=== PATIENT | male | born 1960 | race Caucasian/White ===

== ENCOUNTER 2022-04-20 09:09 | Observation (INO) | payer OTHER, SELFPAY ==
[2022-04-20] VITALS (36 sets, daily range): BP systolic 104–144; BP diastolic 61–83; PULSE 88–110; RESP 16–22; TEMP 36.6–37.6; O2SAT 3–97; BMI 34.1
--- NOTE | ~2022-04-20 | XR_ITS ---
Portable chest x-ray Comparison: None Clinical History: Cough, wheezing Findings: There is patchy groundglass opacity in both lungs. No pleural effusion or pneumothorax. C ardiomediastinal silhouette is stable. Bones and soft tissues are unremarkable. Impression: Patchy bilateral groundglass opacity. Correlate for infection versus possibly pulmonary edema. Reviewed, dictated and finalized at [facility]. RANCE SPECIALIST Impression: Patchy bilateral groundglass opacity. Correlate for infection versus possibly p ulmonary edema.
--- NOTE | 2022-04-20 09:17 | ECG_ITS ---
Measurements Intervals [place] Rate: 94 P: 78 TX: 168 QRS: 64 QRSD: 92 T: 55 QT: 324 QTc: 406 Interpretive Statements SINUS RHYTHM VENTRICULAR PREMATURE COMPLEX LOW QRS VOLTAGE IN LIMB LEADS BORDERLINE R WAVE PROGRESSION, ANTERIOR LEADS BASELINE ARTIFACT- I, II, III, AVR, AVL, V1-V2 BORDERLINE ECG NO PREVIOUS ECG AVAILABLE FOR COMPARISON Electronically Signed On 04-20-2022 10:05:37 FUEL HANDLER by Ziggy Alegria D.O.
[2022-04-20 09:46] LABS: Hematocrit 37.1 % (40.0-54.0); Hemoglobin 12.1 g/dL (14.0-18.0); Mean Corpuscular HGB Conc 32.6 g/dL (32.0-36.0); Mean Corpuscular Volume 95.1 fL (78.0-102.0); Mean Platelet Volume 10.2 fl (8.7-11.0); Platelet Count Result 199 K/mm3 (150-420); Red Cell Distribution Width 13.4 % (11.6-14.4); White Blood Count 5.3 K/mm3 (4.8-10.8)
[2022-04-20 10:02] LABS: D Dimer 0.43 mg/L (0.19-0.50); INR 1.1; Partial Thromboplastin Time 30.2 SEC (23.90-30.70); Prothrombin Time 11.8 Seconds (9.50-12.10)
--- NOTE | 2022-04-20 10:02 | ED.SOB ---
HPI - SOB/Dyspnea General Chief Complaint: Shortness of Breath/Dyspnea Stated Complaint: cough/short of breath/fever Time Seen by Provider: 04/20/22 09:17 History of Present Illness HPI Narrative: Pt presents with cough and SOB for several days getting progressively worse. Pt says he had fever a couple of days ago. Pt denies COPD or CAD history. Pt is former smoker but quit many years ago. Pt says has minimum sputum production but coughs so much he can't sleep and has trouble laying down flat. Related Data Home Medications Medication Instructions Recorded Confirmed amlodipine 10 mg tablet 10 mg PO DAILY 04/20/22 04/20/22 atenolol 50 mg tablet 50 mg PO BID 04/20/22 04/20/22 hydrochlorothiazide 25 mg tablet 25 mg PO DAILY 04/20/22 04/20/22 irbesartan 150 mg tablet 150 mg PO DAILY 04/20/22 04/20/22 Allergies Allergy/AdvReac Type Severity Reaction Status Date / Time azithromycin Allergy Unknown Verified 04/20/22 09:45 ezetimibe [From Vytorin] Allergy Unknown Verified 04/20/22 09:45 simvastatin [From Vytorin] Allergy Unknown Verified 04/20/22 09:45 Review of Systems Review of Systems: All systems reviewed & are unremarkable except as noted in HPI and below Exam Const: General: healthy appearing and no acute distress Nutritional Appearance: well nourished Orientation/consciousness: patient oriented x3 Limitations: no limitations Neck: Neck: normal visual inspection and no lymphadenopathy Chest: Chest palpation & inspection: normal inspection of the chest Resp: Effort & Inspection: normal respiratory effort Auscultation: crackles and wheezes Cardio: Rate: regular rate Rhythm: regular rhythm GI: GI Palp: Yes Soft to palpation Auscultation: normal bowel sounds Skin: General skin exam: normal color Rashes: no rashes Neuro: General: patient oriented x3, no meningeal signs, no focal motor deficits and CN's II-XI intact bilaterally Speech: normal speech Extrem: General: normal to inspection and no clubbing, cyanosis or edema Psych: Mental Status: mental status grossly normal Affect: normal affect Attitude: cooperative Course Course Emergency Course: pt requiring oxygen even after neb. will need to be admitted for obs and breathing treatments and IV abx. discussed with Josiah Parikh HM agrees to observation. will start antibiotics on floor. Vital Signs Vital signs: Vital Signs Temperature 98.1 F 04/20/22 09:09 Pulse Rate 106 H 04/20/22 09:09 Respiratory Rate 20 04/20/22 09:09 Blood Pressure 140/75 04/20/22 09:09 Pulse Oximetry 88 L 04/20/22 09:09 Oxygen Delivery Room Air 04/20/22 09:09 Temperature 99.7 F H 04/20/22 11:13 Pulse Rate 88 04/20/22 11:13 Respiratory Rate 20 04/20/22 11:13 Blood Pressure 131/83 04/20/22 10:16 Pulse Oximetry 88 L 04/20/22 11:13 Oxygen Delivery Nasal Cannula 04/20/22 11:13 Oxygen Flow Rate 2 04/20/22 11:13 MDM - SOB/Dyspnea Differential Diagnosis Differential diagnosis: Likely congestive heart failure, community acquired pneumonia, asthma with exacerbation and pulmonary embolism Medical Records Attestation: I reviewed the patient's medical records. Lab Data Attestation: I reviewed the patient's lab results. 04/20/22 09:35 04/20/22 09:35 Labs: Lab Results 04/20/22 04/20/22 04/20/22 Range/Units 09:35 09:35 09:35 WBC 5.3 (4.8-10.8) K/mm3 RBC 3.90 L (4.70-6.10) M/mm3 Hgb 12.1 L (14.0-18.0) g/dL Hct 37.1 L (40.0-54.0) % MCV 95.1 (78.0-102.0) fL MCH 31.0 (27.0-31.0) pg MCHC 32.6 (32.0-36.0) g/dL RDW 13.4 (11.6-14.4) % Plt Count 199 (150-420) K/mm3 MPV 10.2 (8.7-11.0) fl Immature Gran % (Auto) Not Reportable Neut % (Auto) Not Reportable Lymph % (Auto) Not Reportable Stewart % (Auto) Not Reportable Eos % (Auto) Not Reportable Baso % (Auto) Not Reportable Lymph # (Auto) Not Reportable Stewart # (Auto) Not Rep
[2022-04-20 10:04] LABS: Band Neutrophils Percent 0 % (0-6); Lymphocytes Absolute Manual 1.59 K/mm3 (1.1-4.5); Lymphocytes Percent Manual 30 % (18-44); Monocytes Absolute Manual 0.84 K/mm3 (0.1-0.90); Monocytes Percent Manual 16 % (3-9); Neutrophils Absolute Manual 2.86 K/mm3 (1.3-6.7); Neutrophils Percent Manual 54 % (46-73); Platelet Estimate Adequate (Adequate); Total Cells Counted 100
[2022-04-20 10:08] LABS: Alanine Aminotransferase 45 U/L (16-63); Alkaline Phosphatase 109 U/L (46-116); Anion Gap 11 mmol/L (8-16); Aspartate Amino Transferase 107 U/L (15-37); Bilirubin,Total 0.2 mg/dL (0.00-1.00); Blood Urea Nitrogen 18 mg/dL (7-18); Calcium 8.4 mg/dL (8.5-10.1); Carbon Dioxide 27 mmol/L (21-32); Chloride 102 mmol/L (98-108); Estimated Glomerular Filt Rate > 60; Glucose 119 mg/dL (70-99); Magnesium 1.2 mg/dL (1.8-2.4); NT Pro B Type Natriuretic Pept 36 pg/mL (0-125); Osmolality Calculated 292 mOsm/kg (285-295); Sodium 140 mmol/L (136-145); Total Protein 7.5 g/dL (6.4-8.2); Troponin I 9.5 ng/L (0.00-60.4)
[2022-04-20] MEDS: IPRATROPIUM 0.5 MG/ALBUTEROL SULFATE 2.5 MG AMPUL.NEB 3 ML INHALATION (10:08)
[2022-04-20 10:21] LABS: Influenza A QL RT-PCR Negative (Negative); Influenza B QL RT-PCR Negative (Negative); SARS-CoV-2 RNA PCR Negative (Negative)
[2022-04-20 10:22] LABS: RSV RNA, RT-PCR Negative (Negative)
--- NOTE | 2022-04-20 10:43 | PC.NURSE ---
PT REPORTS HEADACHE, ERP NOTIFIED AT THIS TIME. ERP AT BEDSIDE.
--- NOTE | 2022-04-20 11:55 | IDPHARM ---
Subjective Pharmacy was consulted by Velia Parikh regarding infectious diseases for Jose Davidson. Jose Davidson is a 61 year old M with concerns regarding Community-Acquired Pneumonia empiric therapy in light of patient allergies. Background The patient is currently receiving Cefepime D1. The patient's PMH includes quitting smoking ~6 years ago per provider and excludes pulmonary history with things like COPD. Additionally, patient appears afebrile without leukocytosis at this time. 04/20 BCX obtained - still pending. Patient has unknown azithromycin allergy. Assessment/Recommendation/Discussion Spoke with consulting provider. Patient has no pseudomonal risk factors but has azithromycin allergy and provider was looking for appropriate CAP regimen. Spoke with provider and if wanting to use beta-lactam can add a tetracycline like doxycycline for atypical coverage. No pseudomonal coverage needed then consider ceftriaxone. Ceftriaxone 2g q24h and doxycycline po 100 mg q12h. Should there be no unexpected changes, worsening, or new indication consider de-escalation as the patient stabilizes with therapy for 5-7 days. Oral de-escalation options include amoxicillin-clavulanate 875 mg q12h from the ceftriaxone. Thank you for the interesting consult - will sign off from this time as empiric therapy is established. Please consider re-consulting or reaching out should the clinical picture shift. Magdaleno Currie, PharmD Infectious Disease/Antimicrobial Stewardship Pharmacist 04/20/22; [id number]
[2022-04-20] MEDS: ACETAMINOPHEN 325 MG TABLET 650 MG PO (12:03)
[2022-04-20] MEDS: BENZONATATE 100 MG CAPSULE PO (12:05)
[2022-04-20] MEDS: guaiFENesin/DEXTROMETHORPHAN 5 ML UDC 10 ML PO (12:05)
[2022-04-20] MEDS: methylPREDNISolone SOD SUCC 40 MG VIAL IV PUSH (12:15)
[2022-04-20] MEDS: DOXYCYCLINE HYCLATE 100 MG TABLET PO ×2 (12:30→21:06)
[2022-04-20] MEDS: ALBUTEROL SULFATE NEB 1.25 MG/3 ML INH INHALATION ×3 (12:37→23:25)
[2022-04-20] MEDS: traZODone HCL 25 MG TABLET PO (21:06)
[2022-04-20] MEDS: atenoloL 50 MG TABLET PO (21:07)
--- NOTE | 2022-04-20 21:43 | PC.NURSE ---
2044 Velia Parikh PRODUCT MGR notified that patient is requesting medication for sleep. States he takes something nightly. New order received.
[2022-04-21] VITALS (8 sets, daily range): BP systolic 146; BP diastolic 76; PULSE 83–97; RESP 16–20; TEMP 36.2; O2SAT 90–95
[2022-04-21] MEDS: ALBUTEROL SULFATE NEB 1.25 MG/3 ML INH INHALATION ×2 (05:03→11:29)
[2022-04-21 07:58] LABS: Hematocrit 37.9 % (40.0-54.0); Hemoglobin 12.7 g/dL (14.0-18.0); Mean Corpuscular HGB Conc 33.5 g/dL (32.0-36.0); Mean Corpuscular Hemoglobin 31.4 pg (27.0-31.0); Mean Corpuscular Volume 93.8 fL (78.0-102.0); Mean Platelet Volume 10.2 fl (8.7-11.0); Platelet Count Result 204 K/mm3 (150-420); Red Blood Count 4.04 M/mm3 (4.70-6.10); White Blood Count 5.1 K/mm3 (4.8-10.8)
[2022-04-21 08:18] LABS: Anion Gap 9 mmol/L (8-16); Calcium 8.9 mg/dL (8.5-10.1); Carbon Dioxide 30 mmol/L (21-32); Chloride 99 mmol/L (98-108); Estimated CRCL calculation 78 ml/min; Estimated Glomerular Filt Rate > 60; Glucose 127 mg/dL (70-99); Potassium 3.7 mmol/L (3.5-5.1); Sodium 138 mmol/L (136-145)
[2022-04-21] MEDS: methylPREDNISolone SOD SUCC 40 MG VIAL IV PUSH (09:01)
[2022-04-21] MEDS: hydroCHLOROthiazide 25 MG TABLET PO (09:02)
[2022-04-21] MEDS: IRBESARTAN 150 MG TABLET PO (09:02)
[2022-04-21] MEDS: amLODIPine BESYLATE 5 MG TABLET 10 MG PO (09:02)
[2022-04-21] MEDS: DOXYCYCLINE HYCLATE 100 MG TABLET PO (09:02)
[2022-04-21] MEDS: atenoloL 50 MG TABLET PO (09:02)
[2022-04-21] MEDS: ENOXAPARIN 40 MG/0.4 ML SYRINGE SUB-Q (09:16)
[2022-04-21 09:28] LABS: Blood Urea Nitrogen 18 mg/dL (7-18); Osmolality Calculated 289 mOsm/kg (285-295)
[2022-04-21] MEDS: MAGNESIUM SULF 4 GM/WATER100ML 4 GM/100 ML BAG IVPB (09:52)
[2022-04-21 12:42] LABS: Magnesium 2.4 mg/dL (1.8-2.4)
--- NOTE | 2022-04-21 13:17 | PM.SD2 ---
Same Day Admit/Disch: HPI History of Present Illness Chief complaint: HYPOXIA PNEUMONIA Narrative: Jose Davidson is a 61 [place] [address] Emergency Room Visit Note Signed Patient: Jose Davidson MR#: [id number] : 1960 Acct:[id number] Age/Sex: 61 / M ADM Date: 04/20/22 Loc: [facility] Attending Dr: Renard Tang MD cc: Pa Tang MD; Kel Hope MD~ HPI - SOB/Dyspnea General Chief Complaint: Shortness of Breath/Dyspnea Stated Complaint: cough/short of breath/fever Time Seen by Provider: 04/20/22 09:17 History of Present Illness HPI Narrative: Pt presents with cough and SOB for several days getting progressively worse.? Pt says he had fever a couple of days ago.? Pt denies COPD or CAD history.? Pt is former smoker but quit many years ago.? Pt says has minimum sputum production but coughs so much he can't sleep and has trouble laying down flat. PMFSH Past Medical History Medical History (Updated 04/21/22 @ 13:18 by Jasmin Parikh NP) Hypermagnesemia Family History Family History Father Acute myocardial infarction Mother Cerebrovascular accident Social History Social History Smoking packs per day: 1 Smoking cigarettes per day: 20.0 Years smoked: 30 Smoking pack-years: 30.00 Smoking status: Former smoker Tobacco type: cigarettes Second hand tobacco smoke exposure: No Smoking end date: 02/20/06 Alcohol intake: never Substance use: never Substance use type: does not use Lack of Transportation: No Lack of Food: Never True Current Housing: I Have Housing Concerned About Future Housing: No Difficulty Paying Gas/Electric Bills: No Difficulty Paying for Meds: No Currently Unemployed: No Education: High School Diploma/GED Difficulty w/ Childcare or Family Care: No Gender identity (if verbalized by the patient): Male Sexual Orientation (if Verbalized by the Patient): Straight or Heterosexual Spiritual care concerns: No Same Day Admit/Disch: Med Pre-admit Medications Home Medications Medication Instructions Recorded Confirmed Type amlodipine 10 mg tablet 10 mg PO DAILY 04/20/22 04/20/22 History atenolol 50 mg tablet 50 mg PO BID 04/20/22 04/20/22 History hydrochlorothiazide 25 mg tablet 25 mg PO DAILY 04/20/22 04/20/22 History irbesartan 150 mg tablet 150 mg PO DAILY 04/20/22 04/20/22 History albuterol sulfate 90 mcg/actuation 2 puff inhalation QID PRN 04/21/22 Rx aerosol inhaler shortness of breath or wheezing #8.5 grams amoxicillin 500 mg capsule 500 mg PO Q12H #10 caps 04/21/22 Rx benzonatate 100 mg capsule 100 mg PO TID PRN Cough #20 caps 04/21/22 Rx doxycycline hyclate 100 mg tablet 100 mg PO Q12HR #10 tabs 04/21/22 Rx methylprednisolone 4 mg tablets in See Rx Instructions PO .COMPLEX 04/21/22 Rx a dose pack (Medrol (Renzo)) #21 ea Exam Narrative: GENERAL:Well-appearing, well-nourished, and in no acute distress. HEAD:Normocephalic, atraumatic. EYES: PERRLA and EOMI. ENT: Nares clear, no rhinorrhea or epistaxis. Mucous membranes moist. NECK: Supple. CHEST: Clear to course lower lobes auscultation. No respiratory distress. HEART: Regular rate and rhythm. No murmur heard. Normal peripheral pulses. ABDOMEN: Soft, nontender, nondistended, normal active bowel sounds. EXTREMITIES: Normal range of motion. No edema. SKIN: Warm, dry, no rash. NEURO: No focal deficits. Alert and oriented x3. DS: Data Data Completed and Pending Labs on day of discharge: Labs from last 24 hours 04/21/22 04/21/22 04/21/22 12:27 07:43 07:43 WBC 5.1 RBC 4.04 L Hgb 12.7 L Hct 37.9 L MCV 93.8 MCH 31.4 H MCHC 33.5 RDW 13.0 Plt Count
--- NOTE | 2022-04-21 13:55 | PC.NURSE ---
Pt discharged to home. Discharge instructions reviewed. Medications reviewed. New ABX, SE, Doseage, times reviewed with pt. Given a list of MG rich foods. Pt instructed to return to ER if his symtoms return. Pt verbalized understanding.
--- NOTE | 2022-04-22 14:38 | PC.NURSE ---
Pt states he received and understood his discharge instructions. Pt has no other comments.
== END 2022-04-21 13:45 | disposition home or self-care (01) ==
LOC: CHSED 09:58 → CHS2ND 11:14
PROVIDERS: Nurse Practitioner Family; Admitting Provider Internal Medicine; Emergency Provider Emergency Medicine; PCP Internal Medicine; Visit Provider Internal Medicine
DX: J18.9 Pneumonia, unspecified organism (principal); R09.02 Hypoxemia; R00.0 Tachycardia, unspecified; Z87.891 Personal history of nicotine dependence; E83.42 Hypomagnesemia; Z20.822 Contact with and (suspected) exposure to COVID-19
CPT/HCPCS: 36415; 71045; 80048; 80053; 83735; 83880; 84484; 85025; 85027; 85380; 85610; 85730; 87040; 87637; 93005; 94640; 96365; 96366; 96367; 96372; 96375; 99285; A9270; G0378; J0696; J1650; J2920; J3475

== ENCOUNTER 2022-05-02 09:03 | Outpatient (CLI) | payer OTHER, SELFPAY ==
--- NOTE | ~2022-05-02 | XR_ITS ---
Clinical Indication: Hypertension, pneumonia PA and lateral views of the chest: Comparison: 04/20/2022 Findings: The lungs are clear, without evidence of focal consolidation or pleural effusion. Cardiome diastinal silhouette is within normal limits. Bones and soft tissues are unremarkable. Impression: Clear lungs. Previously noted bilateral airspace disease is resolved. Reviewed, dictated and finalized at location . Impression: Clear lungs. Previously noted bilateral airspace disease is resolved.
[2022-05-02 09:18] LABS: Appearance Urine Clear (Clear); Bilirubin Urine Negative (Negative); Blood Urine Negative (Negative); Color Urine Light Yellow (Yellow); Glucose Urine UA Negative (Negative); Ketones Urine Negative (Negative); Leukocyte Esterase Ur Negative (Negative); Nitrate Urine Negative (Negative); Protein Urine Negative (Negative); Specific Grav Ur 1.015 (1.010-1.020); Urobilinogen Urine 0.2 mg/dL (0.2-1.0)
[2022-05-02 09:19] LABS: Basophils Absolute Auto 0.08 K/mm3 (0.00-0.10); Basophils Percent Auto 0.9 % (0.0-1.0); Eosinophils Absolute Auto 0.26 K/mm3 (0.02-0.50); Eosinophils Percent Auto 2.8 % (1.0-6.0); Hematocrit 39.7 % (40.0-54.0); Hemoglobin 13.4 g/dL (14.0-18.0); Immature Granulocyte Absolute 0.02 K/mm3 (0.00-0.00); Immature Granulocyte Percent A 0.2 % (0.0-0.0); Immature Reticulocyte Fraction 7.3 % (2.0-16.52); Lymphocytes Absolute Auto 2.55 K/mm3 (1.10-4.50); Lymphocytes Percent Auto 27.5 % (18.0-42.0); Mean Corpuscular HGB Conc 33.8 g/dL (32.0-36.0); Mean Corpuscular Hemoglobin 31.2 pg (27.0-31.0); Mean Corpuscular Volume 92.3 fL (78.0-102.0); Mean Platelet Volume 10.2 fl (8.7-11.0); Monocytes Absolute Auto 1.26 K/mm3 (0.10-0.90); Monocytes Percent Auto 13.6 % (2.0-11.0); Neutrophils Absolute Auto 5.1 K/mm3 (1.7-7.2); Platelet Count Result 236 K/mm3 (150-420); Red Cell Distribution Width 12.6 % (11.6-14.4); Reticulocyte Hemoglobin Conten 35.9 pg (28.0-35.0); Reticulocytes Absolute 0.05 M/mm3 (0.02-0.1); White Blood Count 9.3 K/mm3 (4.8-10.8)
[2022-05-02 09:25] LABS: Add Urine Microscopic? NO
[2022-05-02 10:18] LABS: Alanine Aminotransferase 74 U/L (16-63); Albumin Level 3.5 g/dL (3.4-5.0); Alkaline Phosphatase 96 U/L (46-116); Anion Gap 8 mmol/L (8-16); Aspartate Amino Transferase 67 U/L (15-37); Bilirubin,Total 0.4 mg/dL (0.00-1.00); Blood Urea Nitrogen 19 mg/dL (7-18); CRP 0.6 mg/dL (0.0-0.9); Calcium 9.3 mg/dL (8.5-10.1); Carbon Dioxide 30 mmol/L (21-32); Chloride 100 mmol/L (98-108); Cholesterol 193 mg/dL (0-200); Estimated Glomerular Filt Rate > 60; Ferritin 251 ng/mL (26-388); Glucose 106 mg/dL (70-99); HDL Direct 78 mg/dL (40-60); Iron 75 ug/dL (65-175); LDL Cholesterol Calculated 96 mg/dL (<130); Osmolality Calculated 288 mOsm/kg (285-295); Percent Iron Saturation 21 % (12-57); Potassium 4.7 mmol/L (3.5-5.1); Prostate Specific Antigen 0.9 ng/mL (< OR = 4.0); Sodium 138 mmol/L (136-145); Thyroid Stimulating Hormone 2.25 uIU/mL (0.36-3.74); Total Protein 7.6 g/dL (6.4-8.2); Triglycerides 95 mg/dL (0-150)
[2022-05-07 03:21] LABS: Hepatitis A Antibody IgM Nonreactive; Hepatitis B Core Antibody Nonreactive (Nonreactive); Hepatitis B Surface Antigen Nonreactive (Nonreactive); Hepatitis C Signal to Cutoff 0.04 ratio (<1.00); Hepatitis C Virus Antibody Nonreactive (Nonreactive)
== END 2022-05-02 09:04 | disposition home or self-care (01) ==
LOC: CHSLAB 09:05
PROVIDERS: PCP Internal Medicine; Visit Provider Internal Medicine
DX: I10 Essential (primary) hypertension (principal); E78.5 Hyperlipidemia, unspecified; D64.9 Anemia, unspecified; Z12.5 Encounter for screening for malignant neoplasm of prostate
CPT/HCPCS: 36415; 71046; 80053; 80061; 80074; 81003; 82728; 83540; 83550; 84153; 84443; 85025; 85046; 86140; G0103

== ENCOUNTER 2022-05-24 09:52 | Outpatient (CLI) | payer OTHER, SELFPAY ==
[2022-05-24 10:07] LABS: Basophils Absolute Auto 0.07 K/mm3 (0.00-0.10); Basophils Percent Auto 0.8 % (0.0-1.0); Eosinophils Absolute Auto 0.15 K/mm3 (0.02-0.50); Eosinophils Percent Auto 1.7 % (1.0-6.0); Hematocrit 38.5 % (40.0-54.0); Hemoglobin 12.9 g/dL (14.0-18.0); Immature Granulocyte Absolute 0.03 K/mm3 (0.00-0.00); Immature Granulocyte Percent A 0.3 % (0.0-0.0); Lymphocytes Absolute Auto 2.71 K/mm3 (1.10-4.50); Lymphocytes Percent Auto 31.5 % (18.0-42.0); Mean Corpuscular HGB Conc 33.5 g/dL (32.0-36.0); Mean Corpuscular Hemoglobin 31.2 pg (27.0-31.0); Mean Corpuscular Volume 93.2 fL (78.0-102.0); Mean Platelet Volume 9.4 fl (8.7-11.0); Monocytes Absolute Auto 1.04 K/mm3 (0.10-0.90); Monocytes Percent Auto 12.1 % (2.0-11.0); Neutrophils Absolute Auto 4.6 K/mm3 (1.7-7.2); Neutrophils Percent Auto 53.6 % (50.0-70.0); Platelet Count Result 219 K/mm3 (150-420); Red Blood Count 4.13 M/mm3 (4.70-6.10); Red Cell Distribution Width 13.2 % (11.6-14.4); White Blood Count 8.6 K/mm3 (4.8-10.8)
[2022-05-24 10:33] LABS: Alanine Aminotransferase 55 U/L (16-63); Albumin Level 3.6 g/dL (3.4-5.0); Alkaline Phosphatase 77 U/L (46-116); Anion Gap 12 mmol/L (8-16); Aspartate Amino Transferase 74 U/L (15-37); Bilirubin,Total 0.5 mg/dL (0.00-1.00); Blood Urea Nitrogen 17 mg/dL (7-18); Calcium 8.8 mg/dL (8.5-10.1); Carbon Dioxide 26 mmol/L (21-32); Chloride 104 mmol/L (98-108); Estimated Glomerular Filt Rate 57; Glucose 121 mg/dL (70-99); Osmolality Calculated 296 mOsm/kg (285-295); Potassium 4.5 mmol/L (3.5-5.1); Sodium 142 mmol/L (136-145); Total Protein 7.5 g/dL (6.4-8.2)
== END 2022-05-24 09:53 | disposition home or self-care (01) ==
LOC: CHSLAB 09:55
PROVIDERS: PCP Internal Medicine; Visit Provider Internal Medicine
DX: R74.01 Elevation of levels of liver transaminase levels (principal)
CPT/HCPCS: 36415; 80053; 85025

== ENCOUNTER 2022-06-29 08:09 | Outpatient (CLI) | payer OTHER, SELFPAY ==
--- NOTE | ~2022-06-29 | US_ITS ---
Limited Abdominal Sonogram: Real-time sonographic imaging of the right upper quadrant was performed. Clinical History: Abnormal LFTs Findings: The liver appears echogenic/heterogeneous, with no evidence of mass lesion or bile duct di latation. There is probable focal fatty sparing adjacent to the gallbladder. Main portal vein demonst rates normal direction of flow. The gallbladder is well distended, and appears normal with no evidenc e of gallstone or wall thickening. The common bile duct measures 6 mm. The visualized pancreas, aort a, and IVC are unremarkable. Impression: Diffuse fatty infiltration of liver with probable focal fatty sparing adjacent to the gallbladder. Reviewed, dictated and finalized at location M. Impression: Diffuse fatty infiltration of liver with probable focal fatty sparing adjacent to the gallbladder.
[2022-06-29 08:31] LABS: Basophils Absolute Auto 0.07 K/mm3 (0.00-0.10); Basophils Percent Auto 0.8 % (0.0-1.0); Eosinophils Absolute Auto 0.17 K/mm3 (0.02-0.50); Eosinophils Percent Auto 1.9 % (1.0-6.0); Hematocrit 39.7 % (40.0-54.0); Hemoglobin 13.2 g/dL (14.0-18.0); Immature Granulocyte Absolute 0.03 K/mm3 (0.00-0.00); Immature Granulocyte Percent A 0.3 % (0.0-0.0); Immature Reticulocyte Fraction 13.7 % (2.0-16.52); Lymphocytes Absolute Auto 2.39 K/mm3 (1.10-4.50); Lymphocytes Percent Auto 26.7 % (18.0-42.0); Mean Corpuscular HGB Conc 33.2 g/dL (32.0-36.0); Mean Corpuscular Hemoglobin 31.7 pg (27.0-31.0); Mean Corpuscular Volume 95.2 fL (78.0-102.0); Mean Platelet Volume 10.6 fl (8.7-11.0); Monocytes Absolute Auto 1.05 K/mm3 (0.10-0.90); Monocytes Percent Auto 11.7 % (2.0-11.0); Neutrophils Absolute Auto 5.2 K/mm3 (1.7-7.2); Neutrophils Percent Auto 58.6 % (50.0-70.0); Platelet Count Result 213 K/mm3 (150-420); Red Blood Count 4.17 M/mm3 (4.70-6.10); Red Cell Distribution Width 13.2 % (11.6-14.4); Reticulocyte Hemoglobin Conten 35.7 pg (28.0-35.0); Reticulocyte Percent 2.12 % (0.50-1.50); Reticulocytes Absolute 0.09 M/mm3 (0.02-0.1); White Blood Count 8.9 K/mm3 (4.8-10.8)
[2022-06-29 09:00] LABS: CRP < 0.5 mg/dL (0.0-0.9); Ferritin 151 ng/mL (26-388); Iron 66 ug/dL (65-175); Lactate Dehydrogenase 210 U/L (85-227); Percent Iron Saturation 16 % (12-57)
[2022-07-03 08:42] LABS: Methylmalonic Acid 110 nmol/L (87-318)
[2022-07-03 12:25] LABS: Red Blood Cell Folate 813 ng/mL RBC (>280)
== END 2022-06-29 08:10 | disposition home or self-care (01) ==
LOC: CHSIMG 08:12
PROVIDERS: PCP Internal Medicine; Visit Provider Internal Medicine
DX: R94.5 Abnormal results of liver function studies (principal); D64.9 Anemia, unspecified; K76.0 Fatty (change of) liver, not elsewhere classified
CPT/HCPCS: 36415; 76705; 82728; 82747; 83540; 83550; 83615; 83921; 85025; 85046; 86140

== ENCOUNTER 2023-01-24 07:51 | Outpatient (CLI) | payer OTHER, SELFPAY ==
[2023-01-24 08:04] LABS: Basophils Absolute Auto 0.07 K/mm3 (0.00-0.10); Eosinophils Absolute Auto 0.17 K/mm3 (0.02-0.50); Eosinophils Percent Auto 2.4 % (1.0-6.0); Hematocrit 40.8 % (40.0-54.0); Hemoglobin 13.8 g/dL (14.0-18.0); Immature Granulocyte Absolute 0.03 K/mm3 (0.00-0.00); Immature Granulocyte Percent A 0.4 % (0.0-0.0); Lymphocytes Absolute Auto 2.38 K/mm3 (1.10-4.50); Lymphocytes Percent Auto 33.3 % (18.0-42.0); Mean Corpuscular HGB Conc 33.8 g/dL (32.0-36.0); Mean Corpuscular Hemoglobin 31.9 pg (27.0-31.0); Mean Corpuscular Volume 94.2 fL (78.0-102.0); Mean Platelet Volume 9.6 fl (8.7-11.0); Monocytes Absolute Auto 1.06 K/mm3 (0.10-0.90); Monocytes Percent Auto 14.8 % (2.0-11.0); Neutrophils Absolute Auto 3.4 K/mm3 (1.7-7.2); Neutrophils Percent Auto 48.1 % (50.0-70.0); Platelet Count Result 170 K/mm3 (150-420); Red Blood Count 4.33 M/mm3 (4.70-6.10); Red Cell Distribution Width 12.3 % (11.6-14.4); White Blood Count 7.1 K/mm3 (4.8-10.8)
[2023-01-24 08:21] LABS: Hemoglobin A1C 6.2 % (<5.7)
[2023-01-24 08:53] LABS: Alanine Aminotransferase 75 U/L (16-63); Albumin Level 3.7 g/dL (3.4-5.0); Alkaline Phosphatase 108 U/L (46-116); Anion Gap 9 mmol/L (8-16); Aspartate Amino Transferase 136 U/L (15-37); Bilirubin,Total 0.7 mg/dL (0.00-1.00); Blood Urea Nitrogen 17 mg/dL (7-18); Calcium 9.2 mg/dL (8.5-10.1); Carbon Dioxide 30 mmol/L (21-32); Chloride 95 mmol/L (98-108); Estimated Glomerular Filt Rate 57; Glucose 107 mg/dL (70-99); Osmolality Calculated 279 mOsm/kg (285-295); Potassium 4.5 mmol/L (3.5-5.1); Sodium 134 mmol/L (136-145); Total Protein 8.1 g/dL (6.4-8.2)
== END 2023-01-24 07:52 | disposition home or self-care (01) ==
LOC: CHSLAB 07:53
PROVIDERS: PCP Internal Medicine; Visit Provider Internal Medicine
DX: D64.9 Anemia, unspecified (principal); R73.9 Hyperglycemia, unspecified
CPT/HCPCS: 36415; 80053; 83036; 85025

== ENCOUNTER 2023-03-22 09:47 | Outpatient (CLI) | payer OTHER, SELFPAY ==
--- NOTE | ~2023-03-22 | XR_ITS ---
Lumbosacral Spine: AP and lateral views Clinical History: Pain Findings: The normal lordotic curve is maintained. The vertebral bodies and posterior elements are i ntact. The intervertebral disc spaces are preserved. The sacroiliac joints are normally outlined. Impression: No significant abnormality. Reviewed, dictated and finalized at [facility]. EPOINT NET DEVELOPER Impression: No significant abnormality.
--- NOTE | ~2023-03-22 | XR_ITS ---
Thoracic spine: Clinical Indication: Back pain AP and lateral views were performed. Probable minimal anterior wedging deformities of T11 and T12.. There is mild degenerative disc change throughout the lower thoracic spine. Paravertebral soft tissues appear normal. Impression: Minimal anterior wedging deformities of T11 and T12, somewhat age indeterminate. Mild degenerative changes throughout the lower thoracic spine. Reviewed, dictated and finalized at location . AL HEALTH PROGRAM DIRECTOR Impression: Minimal anterior wedging deformities of T11 and T12, somewhat age indeterminate . Mild degenerative changes throughout the lower thoracic spine.
== END 2023-03-22 09:48 | disposition home or self-care (01) ==
LOC: CHSIMG 09:48
PROVIDERS: PCP Internal Medicine; Visit Provider Internal Medicine
DX: M54.6 Pain in thoracic spine (principal); M48.54XA Collapsed vertebra, not elsewhere classified, thoracic region, initial encounter for fracture
CPT/HCPCS: 72072; 72100

== ENCOUNTER 2023-03-23 11:55 | Outpatient (CLI) | payer OTHER, SELFPAY ==
[2023-03-23 12:10] LABS: Basophils Percent Auto 1.4 % (0.0-1.0); Eosinophils Absolute Auto 0.25 K/mm3 (0.02-0.50); Eosinophils Percent Auto 3.5 % (1.0-6.0); Hematocrit 37.7 % (40.0-54.0); Hemoglobin 12.8 g/dL (14.0-18.0); Immature Granulocyte Absolute 0.01 K/mm3 (0.00-0.00); Immature Granulocyte Percent A 0.1 % (0.0-0.0); Immature Platelet Fraction Pct 7.1 % (1.0-7.0); Lymphocytes Percent Auto 25.1 % (18.0-42.0); Mean Corpuscular Hemoglobin 31.9 pg (27.0-31.0); Mean Platelet Volume 10.2 fl (8.7-11.0); Monocytes Percent Auto 12.6 % (2.0-11.0); Neutrophils Absolute Auto 4.1 K/mm3 (1.7-7.2); Neutrophils Percent Auto 57.3 % (50.0-70.0); Platelet Count Result 133 K/mm3 (150-420); Red Blood Count 4.01 M/mm3 (4.70-6.10); Red Cell Distribution Width 12.6 % (11.6-14.4); White Blood Count 7.2 K/mm3 (4.8-10.8)
[2023-03-23 12:31] LABS: Alanine Aminotransferase 81 U/L (16-63); Albumin Level 3.7 g/dL (3.4-5.0); Alkaline Phosphatase 114 U/L (46-116); Ammonia 41 umol/L (11-32); Anion Gap 12 mmol/L (8-16); Aspartate Amino Transferase 168 U/L (15-37); Bilirubin,Total 0.6 mg/dL (0.00-1.00); Blood Urea Nitrogen 26 mg/dL (7-18); Calcium 8.9 mg/dL (8.5-10.1); Carbon Dioxide 27 mmol/L (21-32); Chloride 93 mmol/L (98-108); Cholesterol 203 mg/dL (0-200); Estimated Glomerular Filt Rate 53; Glucose 113 mg/dL (70-99); HDL Direct 114 mg/dL (40-60); LDL Cholesterol Calculated 78 mg/dL (<130); Osmolality Calculated 279 mOsm/kg (285-295); Potassium 4.4 mmol/L (3.5-5.1); Sodium 132 mmol/L (136-145); Total Protein 8.6 g/dL (6.4-8.2); Triglycerides 57 mg/dL (0-150)
[2023-03-23 12:35] LABS: CRP < 0.5 mg/dL (0.0-0.9); Creatine Kinase 1143 U/L (39-308)
[2023-03-28 03:45] LABS: Aldolase 7.4 U/L (<=8.1)
== END 2023-03-23 11:56 | disposition home or self-care (01) ==
LOC: CHSLAB 11:58
PROVIDERS: PCP Internal Medicine; Visit Provider Internal Medicine
DX: M54.50 Low back pain, unspecified (principal); I10 Essential (primary) hypertension; R79.89 Other specified abnormal findings of blood chemistry
CPT/HCPCS: 36415; 80053; 80061; 82085; 82140; 82550; 85025; 85055; 86140

== ENCOUNTER 2023-04-28 09:14 | Outpatient (CLI) | payer OTHER, SELFPAY ==
[2023-04-28 09:27] LABS: Hematocrit 39.4 % (40.0-54.0); Hemoglobin 13.4 g/dL (14.0-18.0); Mean Corpuscular Hemoglobin 31.5 pg (27.0-31.0); Mean Corpuscular Volume 92.5 fL (78.0-102.0); Mean Platelet Volume 9.8 fl (8.7-11.0); Platelet Count Result 188 K/mm3 (150-420); Red Blood Count 4.26 M/mm3 (4.70-6.10); Red Cell Distribution Width 12.4 % (11.6-14.4); White Blood Count 7.3 K/mm3 (4.8-10.8)
[2023-04-28 09:49] LABS: Alanine Aminotransferase 64 U/L (16-63); Albumin Level 3.7 g/dL (3.4-5.0); Alkaline Phosphatase 87 U/L (46-116); Ammonia 104 umol/L (11-32); Anion Gap 9 mmol/L (8-16); Aspartate Amino Transferase 79 U/L (15-37); Bilirubin,Total 0.7 mg/dL (0.00-1.00); Blood Urea Nitrogen 18 mg/dL (7-18); Calcium 9.2 mg/dL (8.5-10.1); Carbon Dioxide 29 mmol/L (21-32); Chloride 96 mmol/L (98-108); Estimated Glomerular Filt Rate > 60; Glucose 128 mg/dL (70-99); Osmolality Calculated 281 mOsm/kg (285-295); Potassium 4.7 mmol/L (3.5-5.1); Sodium 134 mmol/L (136-145); Total Protein 8.2 g/dL (6.4-8.2)
[2023-04-28 09:55] LABS: Band Neutrophils Percent 0 % (0-6); Basophils Absolute Manual 0.07 K/mm3 (0-0.1); Basophils Percent Manual 1 % (0-1); Eosinophils Absolute Manual 0.51 K/mm3 (0.02-0.5); Eosinophils Percent Manual 7 % (1-6); Lymphocytes Absolute Manual 1.97 K/mm3 (1.1-4.5); Lymphocytes Percent Manual 27 % (18-44); Monocytes Absolute Manual 1.09 K/mm3 (0.1-0.90); Monocytes Percent Manual 15 % (3-9); Neutrophils Absolute Manual 3.65 K/mm3 (1.3-6.7); Neutrophils Percent Manual 50 % (46-73); Platelet Estimate Adequate (Adequate); Total Cells Counted 100
[2023-04-28 13:33] LABS: Creatine Kinase 424 U/L (39-308)
== END 2023-04-28 09:15 | disposition home or self-care (01) ==
LOC: CHSLAB 09:16
PROVIDERS: PCP Internal Medicine; Visit Provider Internal Medicine
DX: I10 Essential (primary) hypertension (principal); K70.9 Alcoholic liver disease, unspecified; F10.10 Alcohol abuse, uncomplicated
CPT/HCPCS: 36415; 80053; 82140; 82550; 85025

== ENCOUNTER 2023-08-04 09:02 | Outpatient (CLI) | payer OTHER, SELFPAY ==
[2023-08-04 09:24] LABS: Basophils Absolute Auto 0.08 K/mm3 (0.00-0.10); Basophils Percent Auto 0.8 % (0.0-1.0); Eosinophils Absolute Auto 0.33 K/mm3 (0.02-0.50); Eosinophils Percent Auto 3.3 % (1.0-6.0); Hematocrit 39.5 % (40.0-54.0); Hemoglobin 13.1 g/dL (14.0-18.0); Immature Granulocyte Absolute 0.03 K/mm3 (0.00-0.00); Immature Granulocyte Percent A 0.3 % (0.0-0.0); Lymphocytes Absolute Auto 2.53 K/mm3 (1.10-4.50); Lymphocytes Percent Auto 25.2 % (18.0-42.0); Mean Corpuscular HGB Conc 33.2 g/dL (32-36); Mean Corpuscular Volume 93.6 fL (78.0-102.0); Mean Platelet Volume 9.7 fl (8.7-11.0); Monocytes Absolute Auto 1.49 K/mm3 (0.10-0.90); Monocytes Percent Auto 14.8 % (2.0-11.0); Neutrophils Absolute Auto 5.59 K/mm3 (1.70-7.20); Neutrophils Percent Auto 55.6 % (50.0-70.0); Platelet Count Result 233 K/mm3 (150-420); Red Blood Count 4.22 M/mm3 (4.70-6.10); Red Cell Distribution Width 11.9 % (11.6-14.4); White Blood Count 10.1 K/mm3 (4.8-10.8)
[2023-08-04 09:34] LABS: Hemoglobin A1C 6.1 % (<5.7)
[2023-08-04 10:03] LABS: Alanine Aminotransferase 54 U/L (16-63); Albumin Level 3.6 g/dL (3.4-5.0); Alkaline Phosphatase 97 U/L (46-116); Anion Gap 13 mmol/L (4-12); Aspartate Amino Transferase 65 U/L (15-37); Bilirubin,Total 0.6 mg/dL (0.00-1.00); Blood Urea Nitrogen 13 mg/dL (7-18); Carbon Dioxide 26 mmol/L (21-32); Chloride 94 mmol/L (98-108); Cholesterol 163 mg/dL (0-200); Estimated Glomerular Filt Rate > 60; Glucose 98 mg/dL (70-99); HDL Direct 70 mg/dL (40-60); LDL Cholesterol Calculated 76 mg/dL (<130); Osmolality Calculated 276 mOsm/kg (285-295); Potassium 4.5 mmol/L (3.5-5.1); Sodium 133 mmol/L (136-145); Thyroid Stimulating Hormone 1.32 uIU/mL (0.36-3.74); Triglycerides 85 mg/dL (0-150)
[2023-08-04 10:28] LABS: Appearance Urine Clear (Clear); Bilirubin Urine Negative (Negative); Blood Urine Negative (Negative); Glucose Urine UA Negative (Negative); Ketones Urine Negative (Negative); Leukocyte Esterase Ur Negative (Negative); Nitrate Urine Negative (Negative); Protein Urine Negative (Negative); Specific Grav Ur 1.025 (1.010-1.020); Urobilinogen Urine 0.2 mg/dL (0.2-1.0)
[2023-08-04 10:33] LABS: Add Urine Microscopic? NO; Color Urine Dark Orange (Yellow)
== END 2023-08-04 09:03 | disposition home or self-care (01) ==
LOC: CHSLAB 09:04
PROVIDERS: PCP Internal Medicine; Visit Provider Internal Medicine
DX: R73.03 Prediabetes (principal); R94.5 Abnormal results of liver function studies; D64.9 Anemia, unspecified
CPT/HCPCS: 36415; 80053; 80061; 81003; 83036; 84153; 84443; 85025; G0103

== ENCOUNTER 2024-02-09 09:44 | Outpatient (CLI) | payer OTHER, SELFPAY ==
[2024-02-09 10:25] LABS: Hematocrit 40.1 % (40.0-54.0); Immature Platelet Fraction Pct 7.7 % (1.0-7.0); Mean Corpuscular HGB Conc 34.9 g/dL (32-36); Mean Corpuscular Hemoglobin 31.9 pg (27.0-31.0); Mean Corpuscular Volume 91.3 fL (78.0-102.0); Mean Platelet Volume 11.1 fl (8.7-11.0); Platelet Count Result 124 K/mm3 (150-420); Red Blood Count 4.39 M/mm3 (4.70-6.10); Red Cell Distribution Width 13.1 % (11.6-14.4); White Blood Count 5.4 K/mm3 (4.8-10.8)
[2024-02-09 10:50] LABS: Hemoglobin A1C 5.9 % (<5.7)
[2024-02-09 10:57] LABS: Alanine Aminotransferase 87 U/L (16-63); Albumin Level 3.7 g/dL (3.4-5.0); Alkaline Phosphatase 101 U/L (46-116); Anion Gap 15 mmol/L (4-12); Aspartate Amino Transferase 170 U/L (15-37); Bilirubin,Total 0.8 mg/dL (0.00-1.00); Blood Urea Nitrogen 19 mg/dL (7-18); Calcium 8.8 mg/dL (8.5-10.1); Carbon Dioxide 26 mmol/L (21-32); Chloride 93 mmol/L (98-108); Cholesterol 197 mg/dL (0-200); Estimated Glomerular Filt Rate > 60; Glucose 89 mg/dL (70-99); HDL Direct 89 mg/dL (40-60); LDL Cholesterol Calculated 86 mg/dL (<130); Osmolality Calculated 279 mOsm/kg (285-295); Potassium 4.6 mmol/L (3.5-5.1); Sodium 134 mmol/L (136-145); Total Protein 8.1 g/dL (6.4-8.2); Triglycerides 108 mg/dL (0-150)
== END 2024-02-09 09:45 | disposition home or self-care (01) ==
LOC: CHSLAB 09:47
PROVIDERS: PCP Internal Medicine; Visit Provider Internal Medicine
DX: E78.5 Hyperlipidemia, unspecified (principal); I10 Essential (primary) hypertension; R73.03 Prediabetes
CPT/HCPCS: 36415; 80053; 80061; 83036; 85027; 85055

== ENCOUNTER 2024-05-24 10:40 | Outpatient (CLI) | payer OTHER, SELFPAY ==
--- NOTE | ~2024-05-24 | XR_ITS ---
Clinical Indication: Dyspnea PA and lateral views of the chest: Comparison: 05/02/2022 Findings: The lungs are clear, without evidence of focal consolidation or pleural effusion. Cardiome diastinal silhouette is within normal limits. Bones and soft tissues are unremarkable. Impression: Normal chest. Reviewed, dictated and finalized at location . Impression: Normal chest.
[2024-05-24 11:10] LABS: Device ROOM AIR; HCO3 ABG 25.6 mmol/L (23-29); Modified Allen's Test Pass; Oxygen Saturation ABG 95.5 % (95-97); Oxyhemoglobin 94.9 % (94-100); PCO2 ABG 40.8 mmHg (35-45); PO2 ABG 83.9 mmHg (80-90); Site Drawn LEFT RADIAL; pH ABG 7.42 (7.35-7.45)
--- NOTE | 2024-05-24 11:10 | ECG_ITS ---
Test Date: 2024-05-24 11:39:15 Measurements Intervals [place] Rate: 79 P: 0 NV: 0 QRS: 126 QRSD: 105 T: 32 QT: 395 QTc: 455 Interpretive Statements ATRIAL FIBRILLATION RIGHT AXIS DEVIATION CANNOT R/O SEPTAL INFARCT, AGE INDETERMINATE BASELINE ARTIFACT- I, II, III, AVR, AVL, AVF, V1-V2 ABNORMAL ECG No previous ECG available for comparison Electronically Signed On 05-24-2024 13:43:11 CDT by Ziggy Alegria D.O.
[2024-05-24 11:17] LABS: Hematocrit 36.9 % (40.0-54.0); Hemoglobin 12.5 g/dL (14.0-18.0); Immature Platelet Fraction Pct 6.3 % (1.0-7.0); Mean Corpuscular HGB Conc 33.9 g/dL (32-36); Mean Corpuscular Hemoglobin 32.2 pg (27.0-31.0); Mean Corpuscular Volume 95.1 fL (78.0-102.0); Mean Platelet Volume 10.1 fl (8.7-11.0); Platelet Count Result 141 K/mm3 (150-420); Red Blood Count 3.88 M/mm3 (4.70-6.10); Red Cell Distribution Width 12.5 % (11.6-14.4); White Blood Count 6.3 K/mm3 (4.8-10.8)
--- OUTSIDE RECORDS SUMMARY | 2024-05-24 11:22 | XMS_ITS | Encounter Summary ---
Author Organization [facility] Address [id number] [place] [address] Care Team Providers Care Grinding Machine Operator Portable Name Role Phone Raysa Miguel MD Primary Care Provider [phone] Jonna Moss [facility]- Unavailable Regan Lam MD Unavailable [phone] Shahid Mansfield MD Unavailable [phone] Encounter Details Date Type Department Care Team (Late st Contact Info) Description 05/31/2021 Abstract [facility]-[address] [place] [address] Abstract, Doc [facility] Social History Tobacco Use Types Packs/Day Years Used Date Smoking Tobacco: Former Cigarettes 2 25 1 982 - 2006 Smokeless Tobacco: Never Alcohol Use Standard Drinks/Week Comments Yes 0 (1 standard drink = 0.6 oz pur e alcohol) 2 beers daily Sex and Gender Information Value Date Recorded Sex Assigned at Not on file Legal Sex Male 8:51 PM CDT Gender Identity Not on file Sexual Orientation Not on file Occupation Industry Job Start Date Job End Date Not on file Not on file Not on file Not on file COVID-19 Exposure Response Date Recorded In the last 10 days, have yo u been in contact with someone who was confirmed or suspected to have Coronavirus/COVID-19? No / Unsure 06/01/2021 8:47 AM CDT documented as of this encounter Plan of Treatment Not on file documented as of this encounter Procedures Procedure Name Priority Date/Time Associated Diagnosis Comments AST/SGOT Routine 05/26/2021 Encounter for long-term current use of medication LIPID PANEL Routine 05/26/2021 Mixed hyperlipidemia ALT/SGPT Routine 05/26/2021 Encounter for long-term current use of medication documented in this encounter Results * ALT/SGPT (05/26/2021) ALT 56 05/26/2021 us Gwendolyn Hale MD LABORATORY Final Result * AST/SGOT (05/26/2021) AST 77 05/26/2021 us Gwendolyn Hale MD LABORATORY Final Result * LIPID PANEL (05/26/2021) CHOLESTEROL 200 HDL 90 TRIGLYCERIDES 184 CHOL/HDL RATIO 2.2 LDL (CALCULATED) 80 VLDL CALCULATION 30 05/26/2021 us Gwendolyn Hale MD LABORATORY Final Result documented in this encounter Visit Diagnoses Diagnosis Mixed hyperlipidemia Encounter for long-term current use of medication documented in this encounter Care Teams Grinding Machine Operator Portable Relationship Specialty Start Date End Date [place] [address] PCP - General FAMILY PRACTICE 04/22/16 Jonna Moss, [employer] [place] [id number] NURSE PRACTITIONER 04/22/16 [place] [address] CARDIOVASCULAR DISEASE 04/22/16 Shahid Mansfield MD [address] [place] [id number] ORTHOPAEDIC SURGERY 04/22/16 documented as of this encounter
--- OUTSIDE RECORDS SUMMARY | 2024-05-24 11:23 | XMS_ITS | Clinical Summary ---
Author Organization [facility] Address [address] [place] [address] Care Team Providers Care Kitchen Assistant Name Role Phone Unavailable Primary Care Provider Unavailabl e Immunizations Immunization Administration Dates Next Due Covid-19, Mrna, Lnp-s, PF, 1 00 mcg/0.5 mL Dose (Moderna) 12/25/2020 Social History Tobacco Use Types Packs/Day Years Used Date Smoking Tobacco: Never Assessed Sex and Gender Information Value Date Recorded Sex Assigned at Not on file Legal Sex Male 9:24 AM CDT Gender Identity Not on file Sexual Orientation Not on file Plan of Treatment Health Maintenance Due Date Last Done Comments Hepatitis C Virus (HCV) Screening 1960 TdaP Immunization 1960 Colonoscopy 09/19/2004 Colorectal Cancer Screening 09/19/2004 Cologuard 09/19/2009 Immunochemical Fecal Occult Blood 09/19/2009 Pneumococcal Immunization (5 0+ years) (1 of 1 - PCV) 09/19/2009 Zoster Immunization (1 of 2) 09/19/2009 Influenza Immunization (#1) 2023 03/16/2020 SARS-COV-2 Immunization ( season) 2023 12/25/2020, 04/24/2020, 03/27/2020 Respiratory Syncytial Virus (RSV) Immunization (Adult) (1 - 1-dose 75+ series) 09/19/2034 Hepatitis B Immunization Aged Out No longer eligible based on patient's age to complete this topic Meningococcal Immunization (ACWY) Aged Out No longer eligible b ased on patient's age to complete this topic Rotavirus Immunization Aged Out No lo nger eligible based on patient's age to complete this topic
--- OUTSIDE RECORDS SUMMARY | 2024-05-24 11:23 | XMS_ITS | Encounter Summary ---
Author Organization [facility] Address [address] [place] [address] Care Team Providers Care Market Developer Name Role Phone Raysa Miguel MD Primary Care Provider [phone] Jonna Moss [facility]- Unavailable Regan Lam MD Unavailable [phone] Shahid Mansfield MD Unavailable [phone] Encounter Details Date Type Department Care Team (Late st Contact Info) Description 05/06/2017 Abstract [facility] [address] [place], [place] [id number] , Generic Conversion, Social History Tobacco Use Types Packs/Day Years Used Date Smoking Tobacco: Former Cigarettes Q uit: 2006 Smokeless Tobacco: Never Alcohol Use Standard Drinks/Week Comments Yes 0 (1 standard drink = 0.6 oz pur e alcohol) 6 beverages per day Sex and Gender Information Value Date Recorded Sex Assigned at Not on file Legal Sex Male 8:51 PM CDT Gender Identity Not on file Sexual Orientation Not on file Occupation Industry Job Start Date Job End Date Not on file Not on file Not on file Not on file documented as of this encounter Plan of Treatment Not on file documented as of this encounter Visit Diagnoses Not on filedocumented in this encounter Additional Health Concerns Infection Onset Date Last Indicated Resolved Time COVID-19 Rule Out 01/31/2021 01/31/2021 01/31/2021 6:37 PM SIZE ROLLER OPERATOR COVID-19 Rule Out 05/16/2021 05/16/2021 05/16/2021 6:33 PM CDT documented as of this encounter Care Teams Market Developer Relationship Specialty Start Date End Date Raysa Miguel MD [address] [place] [address] PCP - General FAMILY PRACTICE 04/22/16 Jonna Moss, [facility] [address] NURSE PRACTITIONER 04/22/16 Regan Lam MD [facility] [place] [address] CARDIOVASCULAR DISEASE 04/22/16 Shahid Mansfield MD [address] [place] [id number] ORTHOPAEDIC SURGERY 04/22/16 documented as of this encounter
--- OUTSIDE RECORDS SUMMARY | 2024-05-24 11:23 | XMS_ITS | Clinical Summary ---
Author Organization [facility] Address [address] [place] [address] Care Team Providers Care Dental Professional Name Role Phone Raysa Miguel MD Primary Care Provider [phone] Jonna Moss EMPLOYEE SERVICE OFFICER- Unavailable Regan Lam MD Unavailable [phone] Shahid Mansfield MD Unavailable [phone] Allergies Active Allergy Reactions Criticality Noted Date Comments Lisinopril Myalgias 04/25/2016 Niacin Itching 04/25/2016 Ezetimibe-Simvastatin Itching 04/25/2016 Medications aspirin (VINOD LOW DOSE) 81 MG tablet Take 1 tablet by mouth daily. 04/07/2014 Active atenolol 100 MG tablet Take 1 tablet by mouth daily. 09/09/2013 Active tadalafil (CIALIS) 20 MG tablet Take 20 mg by mouth daily as needed. 09/09/2013 Active Multiple Vitamin (DAILY VITAMINS) Tab Take 1 tablet by mouth daily. 09/09/2013 Active hydrochlorothia zide 25 MG tablet Take 1 tablet by mouth every morning. 11/11/2013 Active amlodipine 10 MG tablet Take 1 tablet by mouth daily. 03/28/2016 Active cloNIDine 0.1 MG tablet Take 0.1 mg by mouth 2 (two) times daily. 03/07/2016 Active doxycycline hyclate 50 MG capsule Take 1 capsule by mouth daily. 03/26/2016 Active lovastatin 40 MG tablet Take 1 tablet (40 mg total) by mouth nightly. 30 tablet 11 10/13/2020 Active irbesartan 150 MG tablet 03/02/2021 Active fenofibrate (TRICOR) 54 MG tablet Take 1 tablet (54 mg total) by mouth daily with breakfast. 90 tablet 3 10/04/2021 Active Active Problems Problem Noted Date Diagnosed Date Superficial incisional surgical site infection 0 06/08/2021 Carpal tunnel syndrome of left wrist 12/26/2020 Carpal tunnel syndrome of right wrist 12/26/2020 Essential hypertension Mixed hyperlipidemia Paroxysmal atrial fibrillation (CMS/HCC HHS/HCC) Resolved Problems Problem Noted Date Diagnosed Date Resolved Date Aftercare following surgery 06/08/2021 10/04/2021 Preoperative cardiovascular examination 04/25/2016 04/25/2016 Dyslipidemia 04/25/2016 10/04/2021 Family History Relation Status Comments Brother Alive Father (Age 54) [place] Maternal Grandfather Maternal Grandmother Mother (Age 67) stroke Paternal Grandfather Paternal Grandmother Social History Tobacco Use Types Packs/Day Years Used Date Smoking Tobacco: Former Cigarettes 2 25 1 - 2006 Smokeless Tobacco: Never Alcohol Use [...] file Not on file Not on file Last Filed Vital Signs Vital Sign Reading Time Taken Comments Blood Pressure 124/66 10/04/2021 1:08 PM CDT Pulse 86 10/04/2021 1:08 PM CDT Temperature 36.5 C (97.7 F) 05/19/2021 9:22 AM CDT Respiratory Rate 18 10/04/2021 1:08 PM CDT Oxygen Saturation 94% 10/04/2021 1:08 PM CDT Inhaled Oxygen Concentration - - Weight 115.3 kg (254 lb 3.2 oz) 10/04/2021 1:08 PM CDT Height 166.4 cm (5' 5.5 ) 10/04/2021 1:08 PM CDT Body Mass Index 41.66 10/04/2021 1:08 PM CDT Plan of Treatment Health Maintenance Due Date Last Done Comments Colorectal Cancer Screening Colonoscopy (10 Years) 1959 Annual Physical 09/19/1962 Hepatitis C 09/19/1977 DTaP, Tdap and Td Vaccines ( 1 - Tdap) 09/19/1978 Zoster Vaccines (1 of 2) 09/19/2009 RSV Immunization or 60+ Years (1 - Risk 60-74 years 1-dose series) 2019 COVID-19 Vaccine (4 - 2023-2 5 season) 2023 12/25/2020, 04/24/2020, 03/27/2020 Meningococcal B Vaccine Aged Out No l onger eligible based on patient's age to complete this topic Meningococcal Vaccine Aged Out No rea juan eligible based on patient's age to complete this topic Pneumococcal Vaccine: Pediatrics (0 to 5 Years) and At-Risk Patients (6 to 64 Years) Aged Out No longer eligible b ased on patient's age to complete this topic RSV Immunizations Under 20 Months Aged Out No longer eligible b ased on patient's age to complete this topic Insurance [facility] Care Teams Dental Professional Relationship Specialty Start Date End Date Raysa Miguel MD [address] [place] [address] PCP - General FAMILY PRACTICE 04/22/16 Jonna Moss, EMPLOYEE SERVICE OFFICER- [address] [place] [address] NURSE PRACTITIONER 04/22/16 Regan Lam MD [facility] [place] [address] CARDIOVASCULAR DISEASE 04/22/16 Shahid Mansfield MD [address] [place] [address] ORTHOPAEDIC SURGERY 04/22/16
[2024-05-24 11:34] LABS: Alanine Aminotransferase 91 U/L (16-63); Albumin Level 4.1 g/dL (3.4-5.0); Alkaline Phosphatase 94 U/L (46-116); Ammonia 57 umol/L (11-32); Anion Gap 12 mmol/L (4-12); Aspartate Amino Transferase 137 U/L (15-37); Blood Urea Nitrogen 24 mg/dL (7-18); Calcium 8.5 mg/dL (8.5-10.1); Carbon Dioxide 26 mmol/L (21-32); Chloride 87 mmol/L (98-108); Creatine Kinase 800 U/L (39-308); Estimated Glomerular Filt Rate 51; Glucose 108 mg/dL (70-99); NT Pro B Type Natriuretic Pept 160 pg/mL (0-125); Osmolality Calculated 265 mOsm/kg (285-295); Potassium 4.7 mmol/L (3.5-5.1); Sodium 125 mmol/L (136-145); Total Protein 8.8 g/dL (6.4-8.2); Troponin I 11.5 ng/L (0.00-60.4)
[2024-05-24 11:38] LABS: INR 1.1; Partial Thromboplastin Time 30.5 Sec (23.9-30.70); Prothrombin Time 11.7 Seconds (9.50-12.1)
[2024-05-24 11:48] LABS: Add Urine Microscopic? YES; Appearance Urine Clear (Clear); Bilirubin Urine Negative (Negative); Blood Urine Negative (Negative); Color Urine Yellow (Yellow); Glucose Urine UA Negative (Negative); Ketones Urine Trace (Negative); Leukocyte Esterase Ur Negative (Negative); Nitrate Urine Negative (Negative); Protein Urine Trace (Negative); Specific Grav Ur 1.015 (1.010-1.020); Urobilinogen Urine 0.2 mg/dL (0.2-1.0)
[2024-05-24 11:55] LABS: Bacteria Urine Trace /hpf; RBC Urine None seen /hpf (0-2); Squamous Epithelial Cell Urine Rare /hpf (Few); WBC Urine None seen /hpf (0-3)
[2024-05-24 16:26] LABS: Ethanol 265 mg/dL (0-6)
[2024-05-27 10:32] LABS: Free T4 Free Thyroxine 1.21 ng/dL (0.76-1.46); Thyroid Stimulating Hormone 2.39 uIU/mL (0.36-3.74)
[2024-05-27 10:36] LABS: Free T3 3.62 pg/mL (2.18-3.98)
[2024-05-29 12:14] LABS: Alpha Fetoprotein Tumor Marker 4.1 ng/mL (<6.1)
== END 2024-05-24 10:41 | disposition home or self-care (01) ==
PROVIDERS: PCP Internal Medicine; Visit Provider Internal Medicine
DX: R53.1 Weakness (principal); Z79.891 Long term (current) use of opiate analgesic; R06.00 Dyspnea, unspecified; G47.10 Hypersomnia, unspecified; I48.91 Unspecified atrial fibrillation; R94.31 Abnormal electrocardiogram [ECG] [EKG]
CPT/HCPCS: 36415; 36600; 71046; 80053; 81001; 82077; 82105; 82140; 82550; 82553; 82805; 83880; 84439; 84443; 84481; 84484; 85027; 85055; 85610; 85730; 93005

== ENCOUNTER 2024-06-04 08:39 | Outpatient (CLI) | payer OTHER, SELFPAY ==
--- NOTE | ~2024-06-04 | CT_ITS ---
Non-contrast CT scan of the Abdomen and Pelvis Clinical indication: Acute renal failure Technique: 2.5 mm axial scans were obtained through the abdomen and pelvis without intravenous or or al contrast. Dose reduction technique was used on this scan by utilizing automated exposure control a nd iterative reconstruction technique. The dose-length product (DLP) was 1310.49 mGy-cm. Findings: Images through the lung bases reveal no abnormalities. Diffuse nodular contour of liver is compatible cirrhosis. Calcified hepatic and splenic granulomas ar e present. Common bile duct is dilated to 11 mm. The kidneys, pancreas, gallbladder, and adrenals poppy ear normal. There are atherosclerotic calcifications of the aorta. . There is no evidence of bowel obstruction. Images through the pelvis were performed. There is trace ascites. Urinary bladder unremarkable. No pe lvic mass seen. Impression: Cirrhotic morphology of the liver without definite focal hepatic mass. Mildly dilated common bile duct, nonspecific. Trace ascites. Reviewed, dictated and finalized at [facility]. Impression: Cirrhotic morphology of the liver without definite focal hepatic mass. Mildly dilated common bile duct, nonspecific. Trace ascites.
--- OUTSIDE RECORDS SUMMARY | 2024-06-04 08:54 | XMS_ITS | Encounter Summary ---
Author Organization [facility] Address [address] [place] [address] Care Team Providers Care Securities Broker Name Role Phone Raysa Miguel MD Primary Care Provider [phone] Jonna Moss [facility]- Unavailable Regan Lam MD Unavailable [phone] Shahid Mansfield MD Unavailable [phone] Encounter Details Date Type Department Care Team (Late st Contact Info) Description 05/06/2017 Abstract [facility] CONVERSION [address] [place], [place] [address] , Generic Conversion, Social History Tobacco Use [...] Rule Out 01/31/2021 01/31/2021 01/31/2021 6:37 PM DEPARTMENT CLINICIAN COVID-19 Rule Out 05/16/2021 05/16/2021 05/16/2021 6:33 PM CDT documented as of this encounter Care Teams Securities Broker Relationship Specialty Start Date End Date Raysa Miguel MD [address] [place] [address] PCP - General FAMILY PRACTICE 04/22/16 Jonna Moss, [facility] [address] NURSE PRACTITIONER 04/22/16 Regan Lam MD [facility] [place] [address] CARDIOVASCULAR DISEASE 04/22/16 Shahid Mansfield MD [address] [place] [address] ORTHOPAEDIC SURGERY 04/22/16 documented as of this encounter
--- OUTSIDE RECORDS SUMMARY | 2024-06-04 08:54 | XMS_ITS | Encounter Summary ---
Author Organization [facility] Address [facility] [place] [address] Care Team Providers Care Section Forest Fire Warden Name Role Phone Raysa Miguel MD Primary Care Provider [phone] Jonna Moss [facility]- Unavailable Regan Lam MD Unavailable [phone] Shahid Mansfield MD Unavailable [phone] Encounter Details Date Type Department Care Team (Late st Contact Info) Description 05/31/2021 Abstract [facility]-[address] [place] [address] Abstract, Doc Prevea Social History Tobacco Use [...] medication documented in this encounter Care Teams Section Forest Fire Warden Relationship Specialty Start Date End Date [place] [address] PCP - General FAMILY PRACTICE 04/22/16 Jonna Moss, [place]UL[place] [address] NURSE PRACTITIONER 04/22/16 [place] [address] CARDIOVASCULAR DISEASE 04/22/16 Shahid Mansfield MD [address] [place] [address] ORTHOPAEDIC SURGERY 04/22/16 documented as of this encounter
--- OUTSIDE RECORDS SUMMARY | 2024-06-04 08:54 | XMS_ITS | Clinical Summary ---
Author Organization [facility] Address [address] [place] [address] Care Team Providers Care City Library Director Name Role Phone Raysa Miguel MD Primary Care Provider [phone] Jonna Moss ENGINEERING EXECUTIVE- Unavailable Regan Lam MD Unavailable [phone] Shahid Mansfield MD Unavailable [phone] Allergies Active Allergy Reactions Criticality Noted Date [...] Status Comments Brother Alive Father (Age 54) [place] Maternal Grandfather Maternal Grandmother Mother (Age 67) [...] Td Vaccines ( 1 - Tdap) 09/19/1978 Pneumococcal Vaccine: 50+ Years (1 of 1 - PCV) 09/19/2009 Zoster Vaccines (1 of 2) 09/19/2009 RSV [...] patient's age to complete this topic Insurance [facility] Care Teams City Library Director Relationship Specialty Start Date End Date Raysa Miguel MD [address] [place] [address] [place] [address] PCP - General FAMILY PRACTICE 04/22/16 Jonna Moss, ENGINEERING EXECUTIVE- [address] [place] [address] NURSE PRACTITIONER 04/22/16 Regan Lam MD [address] [place] [address] CARDIOVASCULAR DISEASE 04/22/16 Shahid Mansfield MD [address] [place] [address] ORTHOPAEDIC SURGERY 04/22/16
== END 2024-06-04 08:40 | disposition home or self-care (01) ==
LOC: CHSIMG 08:40
PROVIDERS: PCP Internal Medicine; Visit Provider Internal Medicine
DX: N17.9 Acute kidney failure, unspecified (principal); K70.9 Alcoholic liver disease, unspecified
CPT/HCPCS: 74176

== ENCOUNTER 2024-06-05 09:24 | Outpatient (CLI) | payer OTHER, SELFPAY ==
[2024-06-05 09:43] LABS: Hematocrit 36.8 % (40.0-54.0); Hemoglobin 12.5 g/dL (14.0-18.0); Immature Platelet Fraction Pct 7.5 % (1.0-7.0); Mean Corpuscular Hemoglobin 32.1 pg (27.0-31.0); Mean Corpuscular Volume 94.6 fL (78.0-102.0); Platelet Count Result 135 K/mm3 (150-420); Red Blood Count 3.89 M/mm3 (4.70-6.10); Red Cell Distribution Width 12.6 % (11.6-14.4); White Blood Count 5.5 K/mm3 (4.8-10.8)
[2024-06-05 09:56] LABS: INR 1.1; Partial Thromboplastin Time 29.3 Sec (23.9-30.70); Prothrombin Time 11.6 Seconds (9.50-12.1)
[2024-06-05 10:03] LABS: Hemoglobin A1C 5.7 % (<5.7)
--- OUTSIDE RECORDS SUMMARY | 2024-06-05 10:10 | XMS_ITS | Encounter Summary ---
Author Organization [facility] Address [facility] [place] [address] Care Team Providers Care Accounting Representative Name Role Phone Raysa Miguel MD Primary Care Provider [phone] Jonna Moss [facility]- Unavailable Regan Lam MD Unavailable [phone] Shahid Mansfield MD Unavailable [phone] Encounter Details Date Type Department Care Team (Late st Contact Info) Description 05/31/2021 Abstract [facility]-[address] [place] [address] [place] [address] Abstract, Doc Prevea Social History Tobacco Use [...] medication documented in this encounter Care Teams Accounting Representative Relationship Specialty Start Date End Date [place] [address] PCP - General FAMILY PRACTICE 04/22/16 Jonna Moss, SUPERVISOR METAL FABRICATING[place] [address] NURSE PRACTITIONER 04/22/16 [place] [address] CARDIOVASCULAR DISEASE 04/22/16 Shahid Mansfield MD [address] [place] [address] ORTHOPAEDIC SURGERY 04/22/16 documented as of this encounter
--- OUTSIDE RECORDS SUMMARY | 2024-06-05 10:10 | XMS_ITS | Encounter Summary ---
Author Organization [facility] Address [address] [place] [address] Care Team Providers Care Admin Secretary Name Role Phone Raysa Miguel MD Primary Care Provider [phone] Jonna Moss [facility]- Unavailable Regan Lam MD Unavailable [phone] Shahid Mansfield MD Unavailable [phone] Encounter Details Date Type Department Care Team (Late st Contact Info) Description 05/06/2017 Abstract [facility] CONVERSION [address] [place], [place] [address] , Generic Conversion, Social History Tobacco Use [...] Rule Out 01/31/2021 01/31/2021 01/31/2021 6:37 PM SENIOR QUALITY MANAGER COVID-19 Rule Out 05/16/2021 05/16/2021 05/16/2021 6:33 PM CDT documented as of this encounter Care Teams Admin Secretary Relationship Specialty Start Date End Date Raysa Miguel MD [address] [place] [address] PCP - General FAMILY PRACTICE 04/22/16 Jonna Moss, [facility] [address] NURSE PRACTITIONER 04/22/16 Regan Lam MD [facility] [place] [address] CARDIOVASCULAR DISEASE 04/22/16 Shahid Mansfield MD [address] [place] [address] ORTHOPAEDIC SURGERY 04/22/16 documented as of this encounter
--- OUTSIDE RECORDS SUMMARY | 2024-06-05 10:10 | XMS_ITS | Clinical Summary ---
Author Organization [facility] Address [address] [place] [address] Care Team Providers Care Pumping Station Engineer Name Role Phone Unavailable Primary Care Provider [...]
--- OUTSIDE RECORDS SUMMARY | 2024-06-05 10:10 | XMS_ITS | Clinical Summary ---
Author Organization [facility] Address [address] [place] [address] Care Team Providers Care Weapons Specialist Name Role Phone Raysa Miguel MD Primary Care Provider [phone] Jonna Moss LPN RN- Unavailable Regan Lam MD Unavailable [phone] Shahid Mansfield MD Unavailable [phone] Allergies Active Allergy Reactions Criticality Noted Date [...] Status Comments Brother Alive Father (Age 54) [place] Maternal Grandfather Maternal Grandmother Mother (Age 67) [...] patient's age to complete this topic Insurance [facility] Care Teams Weapons Specialist Relationship Specialty Start Date End Date Raysa Miguel MD [address] [place] [address] [place] [address] PCP - General FAMILY PRACTICE 04/22/16 Jonna Moss, LPN RN- [address] [place] [address] NURSE PRACTITIONER 04/22/16 Regan Lam MD [address] [place] [address] CARDIOVASCULAR DISEASE 04/22/16 Shahid Mansfield MD [address] [place] [address] ORTHOPAEDIC SURGERY 04/22/16
[2024-06-05 10:17] LABS: Alanine Aminotransferase 70 U/L (16-63); Albumin Level 4.3 g/dL (3.4-5.0); Alkaline Phosphatase 107 U/L (46-116); Anion Gap 12 mmol/L (4-12); Aspartate Amino Transferase 113 U/L (15-37); Bilirubin,Total 1.1 mg/dL (0.00-1.00); Blood Urea Nitrogen 18 mg/dL (7-18); Calcium 9.2 mg/dL (8.5-10.1); Carbon Dioxide 27 mmol/L (21-32); Chloride 90 mmol/L (98-108); Cholesterol 201 mg/dL (0-200); Estimated Glomerular Filt Rate > 60; Free T4 Free Thyroxine 1.25 ng/dL (0.76-1.46); Glucose 100 mg/dL (70-99); HDL Direct 111 mg/dL (40-60); LDL Cholesterol Calculated 74 mg/dL (<130); Osmolality Calculated 269 mOsm/kg (285-295); Potassium 4.6 mmol/L (3.5-5.1); Sodium 129 mmol/L (136-145); Thyroid Stimulating Hormone 2.18 uIU/mL (0.36-3.74); Total Protein 8.6 g/dL (6.4-8.2); Triglycerides 80 mg/dL (0-150)
[2024-06-05 12:48] LABS: Add Urine Microscopic? YES; Appearance Urine Clear (Clear); Bilirubin Urine Negative (Negative); Blood Urine Negative (Negative); Color Urine Yellow (Yellow); Glucose Urine UA Negative (Negative); Ketones Urine Trace (Negative); Leukocyte Esterase Ur Negative (Negative); Nitrate Urine Negative (Negative); Protein Urine Trace (Negative); Urobilinogen Urine 0.2 mg/dL (0.2-1.0); pH Urine 6.5 (5.0-8.0)
[2024-06-05 13:01] LABS: Creatinine Urine 112.56 mg/dL (40-278)
[2024-06-05 13:06] LABS: MALB Creatinine Ratio 153.2 mg/g (0-30); Microalbumin Urine Random 172.5 mg/L
[2024-06-05 13:10] LABS: Bacteria Urine None seen /hpf; RBC Urine None seen /hpf (0-2); WBC Urine None seen /hpf (0-3)
== END 2024-06-05 09:25 | disposition home or self-care (01) ==
LOC: CHSLAB 09:27
PROVIDERS: PCP Internal Medicine; Visit Provider Nurse Practitioner Family
DX: K70.31 Alcoholic cirrhosis of liver with ascites (principal); I48.91 Unspecified atrial fibrillation; R73.03 Prediabetes; Z13.6 Encounter for screening for cardiovascular disorders
CPT/HCPCS: 36415; 80053; 80061; 81001; 82043; 83036; 84439; 84443; 85027; 85055; 85610; 85730

== ENCOUNTER 2024-06-12 08:20 | Outpatient (CLI) | payer OTHER, SELFPAY ==
[2024-06-12 08:34] LABS: Basophils Absolute Auto 0.13 K/mm3 (0.00-0.10); Basophils Percent Auto 1.8 % (0.0-1.0); Eosinophils Absolute Auto 0.42 K/mm3 (0.02-0.50); Hematocrit 36.4 % (40.0-54.0); Hemoglobin 12.2 g/dL (14.0-18.0); Immature Granulocyte Absolute 0.02 K/mm3 (0.00-0.00); Immature Granulocyte Percent A 0.3 % (0.0-0.0); Lymphocytes Absolute Auto 2.52 K/mm3 (1.10-4.50); Lymphocytes Percent Auto 35.8 % (18.0-42.0); Mean Corpuscular HGB Conc 33.5 g/dL (32-36); Mean Corpuscular Hemoglobin 32.5 pg (27.0-31.0); Mean Corpuscular Volume 97.1 fL (78.0-102.0); Mean Platelet Volume 9.6 fl (8.7-11.0); Monocytes Absolute Auto 0.96 K/mm3 (0.10-0.90); Monocytes Percent Auto 13.6 % (2.0-11.0); Neutrophils Absolute Auto 2.99 K/mm3 (1.70-7.20); Neutrophils Percent Auto 42.5 % (50.0-70.0); Platelet Count Result 193 K/mm3 (150-420); Red Blood Count 3.75 M/mm3 (4.70-6.10); Red Cell Distribution Width 12.9 % (11.6-14.4)
--- OUTSIDE RECORDS SUMMARY | 2024-06-12 08:43 | XMS_ITS | Encounter Summary ---
Author Organization [facility] Address [address] [place] [address] Care Team Providers Care Multimedia Author Name Role Phone Raysa Miguel MD Primary Care Provider [phone] [facility]- Unavailable Regan Lam MD Unavailable [phone] Shahid Mansfield MD Unavailable [phone] Encounter Details Date Type Department Care Team (Late st Contact Info) Description 05/06/2017 Abstract [facility] CONVERSION [address] [place], [place] [address] , Generic Conversion, Social History Tobacco Use [...] Rule Out 01/31/2021 01/31/2021 01/31/2021 6:37 PM EXTERMINATOR TERMITE COVID-19 Rule Out 05/16/2021 05/16/2021 05/16/2021 6:33 PM CDT documented as of this encounter Care Teams Multimedia Author Relationship Specialty Start Date End Date Raysa Miguel MD [address] [place] [address] PCP - General FAMILY PRACTICE 04/22/16 Jonna Moss, [facility] [place] [address] NURSE PRACTITIONER 04/22/16 Regan Lam MD [facility] [place] [address] CARDIOVASCULAR DISEASE 04/22/16 Shahid Mansfield MD [address] [place] [address] ORTHOPAEDIC SURGERY 04/22/16 documented as of this encounter
--- OUTSIDE RECORDS SUMMARY | 2024-06-12 08:43 | XMS_ITS | Clinical Summary ---
Author Organization [facility] Address [address] [place] [address] Care Team Providers Care Ceramic Tile Setter Name Role Phone Raysa Miguel MD Primary Care Provider [phone] Jonna Moss SPORTS JOURNALIST- Unavailable Regan Lam MD Unavailable [phone] Shahid Mansfield MD Unavailable [phone] Allergies Active Allergy Reactions Criticality Noted Date [...] patient's age to complete this topic Insurance [facility] Care Teams Ceramic Tile Setter Relationship Specialty Start Date End Date Raysa Miguel MD [address] [place] [address] [place] [address] PCP - General FAMILY PRACTICE 04/22/16 Jonna Moss, SPORTS JOURNALIST- [address] [place] [address] NURSE PRACTITIONER 04/22/16 Regan Lam MD [address] [place] [address] CARDIOVASCULAR DISEASE 04/22/16 Shahid Mansfield MD [address] [place] [address] ORTHOPAEDIC SURGERY 04/22/16
--- OUTSIDE RECORDS SUMMARY | 2024-06-12 08:43 | XMS_ITS | Encounter Summary ---
Author Organization [facility] Address [facility] [place] [address] Care Team Providers Care Cafeteria Operator Name Role Phone Raysa Miguel MD Primary Care Provider [phone] Jonna Moss [facility]- Unavailable Regan Lam MD Unavailable [phone] Shahid Mansfield MD Unavailable [phone] Encounter Details Date Type Department Care Team (Late st Contact Info) Description 05/31/2021 Abstract [facility]-[address] [place] [address] [address] Abstract, Doc Prevea Social History Tobacco Use [...] medication documented in this encounter Care Teams Cafeteria Operator Relationship Specialty Start Date End Date [place] [address] PCP - General FAMILY PRACTICE 04/22/16 Jonna Moss, DEVELOPMENT GEOLOGIST[place] [address] NURSE PRACTITIONER 04/22/16 [place] [address] CARDIOVASCULAR DISEASE 04/22/16 Shahid Mansfield MD [address] [place] [address] ORTHOPAEDIC SURGERY 04/22/16 documented as of this encounter
--- OUTSIDE RECORDS SUMMARY | 2024-06-12 08:43 | XMS_ITS | Clinical Summary ---
Author Organization Address [address] [place] [address] Care Team Providers Care Pattern Lease Inspector Name Role Phone Unavailable Primary Care Provider [...]
[2024-06-12 09:22] LABS: Anion Gap 6 mmol/L (4-12); Blood Urea Nitrogen 16 mg/dL (7-18); Calcium 10.5 mg/dL (8.5-10.1); Carbon Dioxide 33 mmol/L (21-32); Chloride 95 mmol/L (98-108); Estimated Glomerular Filt Rate > 60; Ferritin 432 ng/mL (26-388); Glucose 100 mg/dL (70-99); Iron 90 ug/dL (65-175); Osmolality Calculated 279 mOsm/kg (285-295); Percent Iron Saturation 28 % (12-57); Sodium 134 mmol/L (136-145); Vitamin B12 815 pg/mL (193-986)
[2024-06-12 09:23] LABS: Folic Acid > 20.0 ng/mL (8.6->20)
[2024-06-12 11:31] LABS: Ethanol 246 mg/dL (0-6)
== END 2024-06-12 08:21 | disposition home or self-care (01) ==
LOC: CHSLAB 08:23
PROVIDERS: PCP Internal Medicine; Visit Provider Nurse Practitioner Family
DX: R94.4 Abnormal results of kidney function studies (principal); R94.5 Abnormal results of liver function studies; D64.9 Anemia, unspecified; F10.10 Alcohol abuse, uncomplicated
CPT/HCPCS: 36415; 80048; 82077; 82607; 82728; 82746; 83540; 83550; 85025

== ENCOUNTER 2024-06-17 14:04 | Outpatient (CLI) | payer OTHER, SELFPAY ==
--- OUTSIDE RECORDS SUMMARY | 2024-06-17 16:07 | XMS_ITS | Clinical Summary ---
Author Organization [facility] Address [address] [place] [address] Care Team Providers Care Boiler Tester Name Role Phone Raysa Miguel MD Primary Care Provider [phone] Jonna Moss ROUND KILN DRAWER- Unavailable Regan Lam MD Unavailable [phone] Shahid Mansfield MD Unavailable [phone] Allergies Active Allergy Reactions Criticality Noted Date [...] Status Comments Brother Alive Father (Age 54) [place] Maternal Grandfather Maternal Grandmother Mother (Age 67) [...] patient's age to complete this topic Insurance [facility] Care Teams Boiler Tester Relationship Specialty Start Date End Date Raysa Miguel MD [address] [place] [address] [place] [address] PCP - General FAMILY PRACTICE 04/22/16 Jonna Moss, ROUND KILN DRAWER- [address] [place] [address] NURSE PRACTITIONER 04/22/16 Regan Lam MD [address] [place] [address] CARDIOVASCULAR DISEASE 04/22/16 Shahid Mansfield MD [address] [place] [address] ORTHOPAEDIC SURGERY 04/22/16
--- OUTSIDE RECORDS SUMMARY | 2024-06-17 16:07 | XMS_ITS | Encounter Summary ---
Author Organization [facility] Address [facility] [place] [address] Care Team Providers Care Any Commodity Buyer Name Role Phone Raysa Miguel MD Primary Care Provider [phone] Jonna Moss [facility]- Unavailable Regan Lam MD Unavailable [phone] Shahid Mansfield MD Unavailable [phone] Encounter Details Date Type Department Care Team (Late st Contact Info) Description 05/31/2021 Abstract [facility]-[address] [place] [address] [address] [place] [address] Abstract, Doc Prevea Social History Tobacco Use [...] medication documented in this encounter Care Teams Any Commodity Buyer Relationship Specialty Start Date End Date [place] [address] PCP - General FAMILY PRACTICE 04/22/16 Jonna Moss, ELECTRO OPTICAL ENGINEER[place] [address] NURSE PRACTITIONER 04/22/16 [place] [address] CARDIOVASCULAR DISEASE 04/22/16 Shahid Mansfield MD [address] [place] [address] ORTHOPAEDIC SURGERY 04/22/16 documented as of this encounter
--- OUTSIDE RECORDS SUMMARY | 2024-06-17 16:07 | XMS_ITS | Clinical Summary ---
Author Organization [facility] Address [address] [place] [address] Care Team Providers Care Sheetmetal Trades Worker Name Role Phone Unavailable Primary Care Provider [...]
--- OUTSIDE RECORDS SUMMARY | 2024-06-17 16:07 | XMS_ITS | Encounter Summary ---
Author Organization [facility] Address [address] [place] [address] Care Team Providers Care Plumber Helper Name Role Phone Raysa Miguel MD Primary Care Provider [phone] Jonna Moss [facility]- Unavailable Regan Lam MD Unavailable [phone] Shahid Mansfield MD Unavailable [phone] Encounter Details Date Type Department Care Team (Late st Contact Info) Description 05/06/2017 Abstract [facility] CONVERSION [address] [place], [place] [address] , Generic Conversion, Social History Tobacco Use [...] Rule Out 01/31/2021 01/31/2021 01/31/2021 6:37 PM MARKETING DATABASE COORDINATOR COVID-19 Rule Out 05/16/2021 05/16/2021 05/16/2021 6:33 PM CDT documented as of this encounter Care Teams Plumber Helper Relationship Specialty Start Date End Date Raysa Miguel MD [address] [place] [address] PCP - General FAMILY PRACTICE 04/22/16 Jonna Moss, [facility] [place] [address] NURSE PRACTITIONER 04/22/16 Regan Lam MD [facility] [place] [address] CARDIOVASCULAR DISEASE 04/22/16 Shahid Mansfield MD [address] [place] [address] ORTHOPAEDIC SURGERY 04/22/16 documented as of this encounter
== END 2024-06-17 14:05 | disposition home or self-care (01) ==
LOC: CHSLAB 14:07
PROVIDERS: PCP Internal Medicine; Visit Provider Nurse Practitioner Family
DX: D64.9 Anemia, unspecified (principal)
CPT/HCPCS: 82272

== ENCOUNTER 2024-06-26 11:15 | Outpatient (CLI) | payer OTHER, SELFPAY ==
[2024-06-26 11:31] LABS: Hemoglobin 10.9 g/dL (14.0-18.0); Mean Corpuscular HGB Conc 34.1 g/dL (32-36); Mean Corpuscular Hemoglobin 32.6 pg (27.0-31.0); Mean Corpuscular Volume 95.8 fL (78.0-102.0); Mean Platelet Volume 9.6 fl (8.7-11.0); Platelet Count Result 127 K/mm3 (150-420); Red Blood Count 3.34 M/mm3 (4.70-6.10); Red Cell Distribution Width 13.4 % (11.6-14.4); White Blood Count 6.5 K/mm3 (4.8-10.8)
--- OUTSIDE RECORDS SUMMARY | 2024-06-26 12:03 | XMS_ITS | Clinical Summary ---
Author Organization [facility] Address [address] [place] [address] Care Team Providers Care Paintless Dent Repair Technician Name Role Phone Raysa Miguel MD Primary Care Provider [phone] Jonna Moss PLASTICS PRODUCTION MACHINE OPERATOR- Unavailable Regan Lam MD Unavailable [phone] Shahid Mansfield MD Unavailable [phone] Allergies Active Allergy Reactions Criticality Noted Date [...] Status Comments Brother Alive Father (Age 54) [place] Maternal Grandfather Maternal Grandmother Mother (Age 67) [...] patient's age to complete this topic Insurance [facility] Care Teams Paintless Dent Repair Technician Relationship Specialty Start Date End Date Raysa Miguel MD [address] [place] [address] [place] [address] PCP - General FAMILY PRACTICE 04/22/16 Jonna Moss, PLASTICS PRODUCTION MACHINE OPERATOR- [address] [place] [address] NURSE PRACTITIONER 04/22/16 Regan Lam MD [address] [place] [address] CARDIOVASCULAR DISEASE 04/22/16 Shahid Mansfield MD [address] [place] [address] ORTHOPAEDIC SURGERY 04/22/16
--- OUTSIDE RECORDS SUMMARY | 2024-06-26 12:03 | XMS_ITS | Clinical Summary ---
Author Organization [facility] Address [address] [place] [address] Care Team Providers Care Water Reuse Program Manager Name Role Phone Unavailable Primary Care Provider [...]
--- OUTSIDE RECORDS SUMMARY | 2024-06-26 12:03 | XMS_ITS | Encounter Summary ---
Author Organization [facility] Address [address] [place] [address] Care Team Providers Care Naval Aircrewman Helicopter Name Role Phone Raysa Miguel MD Primary Care Provider [phone] Jonna Moss [facility]- Unavailable Regan Lam MD Unavailable [phone] Shahid Mansfield MD Unavailable [phone] Encounter Details Date Type Department Care Team (Late st Contact Info) Description 05/06/2017 Abstract [facility] [address], [place] [id number] , Generic Conversion, Social History Tobacco Use [...] Rule Out 01/31/2021 01/31/2021 01/31/2021 6:37 PM PHOTOENGRAVING RETOUCHER COVID-19 Rule Out 05/16/2021 05/16/2021 05/16/2021 6:33 PM CDT documented as of this encounter Care Teams Naval Aircrewman Helicopter Relationship Specialty Start Date End Date Raysa Miguel MD [address] [place] [address] PCP - General FAMILY PRACTICE 04/22/16 Jonna Moss, [facility] [address] NURSE PRACTITIONER 04/22/16 Regan Lam MD [facility] [place] [address] CARDIOVASCULAR DISEASE 04/22/16 Shahid Mansfield MD [address] [place] [address] ORTHOPAEDIC SURGERY 04/22/16 documented as of this encounter
--- OUTSIDE RECORDS SUMMARY | 2024-06-26 12:03 | XMS_ITS | Encounter Summary ---
Author Organization [facility] Address Critical access hospital[address] [place] [address] Care Team Providers Care Blood Bank Technologist Name Role Phone Raysa Miguel MD Primary Care Provider [phone] Jonna Moss [facility]- Unavailable Regan Lam MD Unavailable [phone] Shahid Mansfield MD Unavailable [phone] Encounter Details Date Type Department Care Team (Late st Contact Info) Description 05/31/2021 Abstract [facility] [place] [address] [place] [address] Abstract, Doc Prevea Social History Tobacco Use [...] medication documented in this encounter Care Teams Blood Bank Technologist Relationship Specialty Start Date End Date [place] [address] PCP - General FAMILY PRACTICE 04/22/16 Jonna Moss, [employer]INE P[employer]AGING TECH[place] [address] NURSE PRACTITIONER 04/22/16 [place] [address] CARDIOVASCULAR DISEASE 04/22/16 Shahid Mansfield MD [address] [place] [id number] ORTHOPAEDIC SURGERY 04/22/16 documented as of this encounter
--- OUTSIDE RECORDS SUMMARY | 2024-06-26 12:03 | XMS_ITS | Referral Summary ---
Author Organization [facility] [address] [place] [address] [address] Address [address] [place] [address] Care Team Providers Care Basket Mender Name Role Phone Kel Hope MD Primary Care Provider [phone] Encounters Date Type Department Care Team Description 06/19/2024 10:15 AM CDT Office Visit [facility] Cardiology at [address] [place] [address] Yoandy Dhillon MD Essential hypertension (Primary Dx); Atrial fibrillation, unspecified type (HCC); Mixed hyperlipidemia; Morbid obesity with BMI of 40.0-44.9, adult (HCC); Morbid obesity (HCC); Bilateral lower extremity edema; DANIEL (obstructive sleep apnea); Alcohol abuse from Last 3 Months Allergies Active Allergy Reactions Criticality Noted Date Comments [place]-3 Fatty Acids Other (See comments) 2024 Indigestion Lisinopril Muscle pain Medium 06/19/2024 Niacin Itching Low 06/19/2024 Medications irbesartan (AVAPRO) 150 mg tablet Take 1 tablet (150 mg total) by mouth nightly Active hydroCHLOROthiaz lolly (HYDRODIURIL) 25 mg tablet Take 1 tablet (25 mg total) by mouth daily Active amLODIPine (NORVASC) 10 mg tablet Take 1 tablet (10 mg total) by mouth daily Active doxycycline monohydrate 50 mg tablet Take 1 tablet (50 mg total) by mouth 2 (two) times a day Active multivitamin with minerals tablet Take 1 tablet by mouth daily Active omega-3 fatty acids-fish oil 300-1,000 mg capsule Take 2 capsules (2 g total) by mouth daily Active lovastatin (MEVACOR) 40 mg tablet Take 1 tablet (40 mg total) by mouth nightly Active propranolol LA (INDERAL LA) 120 mg 24 hr capsule Take 1 capsule (120 mg total) by mouth daily Active apixaban (ELIQUIS) 5 mg tabletIndication s:atrial fibrillation Take 1 tablet (5 mg total) by mouth 2 (two) times a day 180 tablet 3 5 06/20/19 26 Active furosemide (LASIX) 20 mg tabletIndication s:Bilateral lower extremity edema Take 1 tablet (20 mg total) by mouth daily 90 tablet 3 5 06/20/19 26 Active aspirin 81 mg enteric coated tablet Take 1 tablet (81 mg total) by mouth daily 06/20/19 25 Discontinu ed(Therapy completed) Active Problems Problem Noted Date Diagnosed Date DANIEL (obstructive sleep apnea) 06/19/2024 Bilateral lower extremity edema 06/19/2024 Morbid obesity 06/19/2024 Morbid obesity with BMI of 40.0-44.9, adult 05/23 Mixed hyperlipidemia 06/19/2024 Atrial fibrillation 06/19/2024 Essential hypertension 06/19/2024 Alcohol abuse 06/19/2024 Social History Tobacco Use Types Packs/Day Years Used Date Smoking Tobacco: Former Cigarettes Q uit: 1996 Smokeless Tobacco: Never Sex and Gender Information Value Date Recorded Sex Assigned at Not on file Legal Sex Male 2:17 PM CDT Gender Identity Not on file Sexual Orientation Not on file Last Filed Vital Signs Vital Sign Reading Time Taken Comments Blood Pressure 118/78 06/19/2024 10:28 AM CDT Pulse 83 06/19/2024 10:28 AM CDT Temperature - - Respiratory Rate - - Oxygen Saturation 94% 06/19/2024 10:28 AM CDT Inhaled Oxygen Concentration - - Weight 119.7 kg (264 lb) 06/19/2024 10:28 AM CDT Height 167.6 cm (5' 6 ) 06/19/2024 10:28 AM CDT Body Mass Index 42.61 06/19/2024 10:28 AM CDT Plan of Treatment Not on file Procedures Procedure Name Priority Date/Time Associated Diagnosis Comments ECG 12-LEAD Routine 06/19/2024 3:35 PM CDT Atrial fibrillation, unspecified type (HCC) from Last 3 Months Results * ECG 12 lead (06/19/2024 3:35 PM CDT) Yoandy Dhillon MD ECG ORDERABLES Final Res ult from Last 3 Months Insurance [employer] [facility] H[facility] Care Teams Basket Mender Relationship Specialty Start Date End Date Kel Hope MD [address] [place] [address] PCP - General Internal Medicine 06/07/24
--- OUTSIDE RECORDS SUMMARY | 2024-06-26 12:03 | XMS_ITS | Clinical Summary ---
Author Organization [facility] [address] [facility] [address] Address [address] [place] [address] Care Team Providers Care Hand Printed Circuit Board Assembler Name Role Phone Kel Hope MD Primary Care Provider [phone] Allergies Active Allergy Reactions Criticality Noted Date Comments [place]-3 Fatty Acids Other (See comments) 2024 Indigestion [...] 06/19/2024 Essential hypertension 06/19/2024 Alcohol abuse 06/19/2024 Encounters Date Type Department Care Team Description 06/19/2024 10:15 AM CDT Office Visit [facility] Cardiology at [address] [place] [address] Yoandy Dhillon MD Essential hypertension (Primary Dx); Atrial fibrillation, unspecified type (HCC); Mixed hyperlipidemia; Morbid obesity with BMI of 40.0-44.9, adult (HCC); Morbid obesity (HCC); Bilateral lower extremity edema; DANIEL (obstructive sleep apnea); Alcohol abuse from Last 3 Months Surgical History Surgery Date Site/Laterality Comments CARPAL TUNNEL RELEASE ABLATION 02/20/2014 - 02/19/2015 Medical History Medical History Date Comments Anemia Acute kidney failure Hypertension Atrial fibrillation (HCC) Hyperlipidemia Sleep apnea Family History Medical History Relation Name Comments Arrhythmia Brother Coronary artery disease Brother Sleep apnea Brother Heart disease Father Hypertension Father Coronary artery disease Mother Hyperlipidemia Mother Hypertension Mother cva Mother Relation Name Status Comments Brother Alive Father Mother Social History Tobacco Use Types Packs/Day Years Used Date Smoking Tobacco: Former Cigarettes Q uit: 1996 Smokeless Tobacco: Never Sex and Gender Information Value Date Recorded Sex Assigned at Not on file Legal Sex Male 2:17 PM CDT Gender Identity Not on file Sexual Orientation Not on file Obstetrics History Last Filed Vital Signs Vital Sign Reading [...] 06/19/2024 10:28 AM CDT Plan of Treatment Health Maintenance Due Date Last Done Comments Colon Cancer Screening-Colonoscopy 1960 Depression Screening 1960 Hepatitis C Screening 1960 Prostate Cancer Screening-PSA 1960 DTaP/Tdap/Td Vaccine (1 - Tdap) 09/19/1970 Hepatitis B Screening 09/19/1977 Regular Well Visit/Exam 18-64 09/19/1977 Zoster Vaccine (1 of 2) 09/19/2009 Covid-19 Vaccine (2 - 2023-2 5 season) 2023 12/25/2020 Influenza Vaccine (Season Ended) 2024 Pneumococcal vaccine <65 Aged Out No longer eligible based on patient's age to complete this topic Procedures Procedure Name Priority Date/Time Associated Diagnosis Comments ECG 12-LEAD Routine 06/19/2024 3:35 PM CDT Atrial fibrillation, unspecified type (HCC) from Last 3 Months Results * ECG 12 lead (06/19/2024 3:35 PM CDT) us Yoandy Dhillon MD ECG ORDERABLES Final Res ult from Last 3 Months [facility] Care Teams Hand Printed Circuit Board Assembler Relationship Specialty Start Date End Date Kel Hope MD [address] [place] [address] PCP - General Internal Medicine 06/07/24
[2024-06-26 13:50] LABS: Ethanol 234 mg/dL (0-6)
[2024-06-26 14:48] LABS: Alanine Aminotransferase 66 U/L (6-50); Albumin Level 4.5 g/dL (3.5-5.1); Alkaline Phosphatase 79 U/L (38-126); Anion Gap 12 mmol/L (4-12); Aspartate Amino Transferase 142 U/L (17-59); Bilirubin,Total 1.1 mg/dL (0.2-1.3); Blood Urea Nitrogen 30 mg/dL (9-20); Calcium 8.7 mg/dL (8.4-10.2); Carbon Dioxide 25 mmol/L (22-30); Chloride 95 mmol/L (98-107); Estimated Glomerular Filt Rate > 60; Glucose 86 mg/dL (65-110); Magnesium 0.9 mg/dL (1.6-2.3); Osmolality Calculated 279 mOsm/kg (285-295); Phosphorus 4.2 mg/dL (2.5-4.5); Potassium 4.5 mmol/L (3.4-5.0); Sodium 132 mmol/L (137-145); Total Protein 7.6 g/dL (6.3-8.2)
[2024-06-28 12:23] LABS: Ionized Calcium 4.8 mg/dL (4.7-5.5)
== END 2024-06-26 11:16 | disposition home or self-care (01) ==
LOC: CHSLAB 11:18
PROVIDERS: PCP Internal Medicine; Visit Provider Nurse Practitioner Family
DX: I10 Essential (primary) hypertension (principal); R60.0 Localized edema
CPT/HCPCS: 36415; 80053; 82077; 82330; 83735; 84100; 85027

== ENCOUNTER 2024-07-09 14:27 | Outpatient (CLI) | payer OTHER, SELFPAY ==
--- OUTSIDE RECORDS SUMMARY | 2024-07-09 14:30 | XMS_ITS | Clinical Summary ---
Author Organization [facility] [address] [facility] [address] Address [address] [place] [address] Care Team Providers Care It Application Administrator Name Role Phone Kel Hope MD Primary Care Provider [phone] Allergies Active Allergy Reactions Criticality Noted Date Comments [place]-3 Fatty Acids Other (See comments) 2024 Indigestion [...] Encounters Date Type Department Care Team Description 07/08/2024 1:00 PM CDT - 07/08/2024 11:59 PM CDT Hospital Encounter [facility] [address] [place] [address] DANIEL (obstructive sleep apnea) Discharge Disposition: Discharge to home or self care 06/28/2024 3:00 PM CDT Ancillary Procedure [facility] Cardiology at [address] [place] [address] Atrial fibrillation, unspecified type (HCC); Essential hypertension; Bilateral lower extremity edema 06/27/2024 Telephone [facility] Cardiology [address] [place] [address] Ryan De Los Santos MD 06/19/2024 10:15 AM CDT Office Visit [facility] Cardiology at [address] [place] [address] Ryan De Los Santos MD Essential hypertension (Primary Dx); Atrial fibrillation, [...] Procedure Name Priority Date/Time Associated Diagnosis Comments TRANSTHORACIC ECHO (TTE) COMPLETE W DOPPLER/CF Routine 06/28/2024 2:52 PM CDT Atrial fibrillation, unspecified type (HCC) Essential hypertension Bilateral lower extremity edema ECG 12-LEAD Routine 06/19/2024 3:35 PM CDT Atrial fibrillation, unspecified type (HCC) from Last 3 Months Results * Transthoracic Echo (TTE) Complete W Doppler/CF (06/28/2024 2:52 PM CDT) EF Mod BP 45 % CONS SCIMAGE Anatomical Region Laterality Modality Ultrasound 06/28/2024 2:52 PM CDT Narrative 06/29/2024 10:46 AM CDT [facility] Cardiology [address], [address], [place] [address] P:[phone] P:[phone] Echocardiographic Report Patient Name: YAJAIRA FRANZ : 1960 Study Date: 06/28/2024 2:52:03 PM Gender: M Tech: Location: [facility] Ref Provider: RYAN DE LOS SANTOS Height(Cm): 168 BSA: 2.36 Weight(Kg): 119.7 Heart Rate: 112 BP: 118 / 78 Quality: Good Order Provider: RYAN DE LOS SANTOS PROCEDURES: Echocardiographic Report: Transthoracic echocardiogram with complete 2D, M-Mode, and color Doppler examination. With Strain Analysis. INDICATIONS: I48.91 Unspecified atrial fibrillation, I10 Essential (primary) hypertension, and Bilateral Lower Extremity Edema. MEASUREMENTS: 2D/MM Value Range Doppler Value Range EF Mod BP 45 % [ 52 - 72 ] LISSET Vmax 2.33 cm2 [ 2.00 - 4.00 ] EF Teich MM 50 % [ 52 - 72 ] AV Mean PG 7 mmHg LVIDd 2D 5.85 cm [ 4.20 - 5.80 ] AV Peak Rajinder 1.83 m/s [ 1.00 - 1.70 ] LVIDd MM 5.85 cm [ 4.20 - 5.80 ] AV Peak PG 14 mmHg LVIDs 2D 3.97 cm [ 2.50 - 4.00 ] AV VTI 31.44 cm LVIDs MM 4.35 cm [ 2.50 - 4.00 ] LVOT Diam 2.03 cm [ 1.70 - 2.10 ] LVPWd 2D 1.13 cm [ 0.60 - 1.00 ] LVOT Peak Rajinder 1.13 m/s [ 0.70 - 1.10 ] LVPWd MM 1.27 cm [ 0.60 - 1.00 ] LVOT VTI 22.48 cm IVSd 2D 1.31 cm [ 0.60 - 1.00 ] MV E Peak Rajinder 1.19 m/s [ 0.60 - 1.30 ] IVSd MM 1.13 cm [ 0.60 - 1.00 ] MV Decel Time 210 msec [ 104 - 258 ] LA Dimension MM 3.97 cm [ 3.00 - 4.00 ] PV Peak Rajinder 1.19 m/s [ 0.40 - 0.80 ] AoR Diam MM 3.60 cm [ 3.10 - 3.70 ] TR Peak Rajinder 2.75 m/s [ 1.00 - 2.80 ] LA Volume Index 26 cc/m2 [ 16 - 34 ] TR Peak PG 30 mmHg ACS MM 2.29 cm [ 1.50 - 2.60 ] RVSP 38.00 mmHg [ 10.00 - 36.00 ] Lateral E` 0.11 m/s [ 0.10 - 0.15 ] E/E` 11 2D/MM Value Range Doppler Value Range - FINDINGS: Interpretation Site: Exam was interpreted at [facility]. Left Ventricle: Mild concentric left ventricular hypertrophy. Mild enlargement of left ventricle cavity. Mild global left ventricular systolic dysfunction. Diastolic dysfunction is present. Ejection fraction is measured at 45 %. Right Ventricle: Normal right ventricular size. Normal right ventricular systolic function. Left Atrium: There is mild enlargement of left atrium. Right Atrium: The right atrium is normal in size. Atrial Septum: Normal atrial septum. Mitral Valve: Normal appearance of the mitral valve. Mild mitral valve regurgitation. There is no hemodynamically significant mitral stenosis by Doppler. Aortic Valve: No evidence of hemodynamically significant aortic stenosis by Doppler. Aortic cusps appear mildly sclerotic. Trileaflet aortic valve. No aortic regurgitation. Tricuspid Valve: Normal appearance of the tricuspid valve. Estimated peak RVSP is 45 mmHg. Mild tricuspid regurgitation. Pulmonic Valve: Normal appearance of the pulmonic valve. Mild pulmonic regurgitation. Pericardium: Normal pericardium with no significant pericardial effusion. Aorta: Sinus of Valsalva is normal. IVC: Dilated IVC without respiratory collapse consistent with elevated right atrial pressure (>15 mmHg). Pulmonary Artery: Normal pulmonary artery size. CONCLUSIONS: Mild concentric left ventricular hypertrophy. Mild enlargement of left ventricle cavity. Mild global left ventricular systolic dysfunction. Diastolic dysfunction is present. Ejection fraction is measured at 45 %. There is mild enlargement of left atrium. Mild mitral valve regurgitation. Estimated peak RVSP is 45 mmHg. Mild tricuspid regurgitation. Mild pulmonic regurgitation. Atrial fibrillation with heart rates 100-110 beats per minute. Electronically Signed By: Dr. Jomar Ayala [facility] 06/29/2024 10:45:44 AM CDT Procedure Note Jomar Ayala MD - 06/29/2024 [facility] Cardiology [address] [facility], [address], [place] [address] P:[phone] P:[phone] Echocardiographic Report Patient Name: YAJAIRA FRANZ : 1960 Study Date: 06/28/2024 2:52:03 PM Gender: M Tech: Location: [facility] Ref Provider: RYAN DE LOS SANTOS Height(Cm): 168 BSA: 2.36 Weight(Kg): 119.7 Heart Rate: 112 BP: 118 / 78 Quality: Good Order Provider: RYAN DE LOS SANTOS PROCEDURES: Echocardiographic Report: Transthoracic echocardiogram with complete 2D, M-Mode, and color Dopplerexamination. With Strain Analysis. INDICATIONS: I48.91 Unspecified atrial fibrillation, I10 Essential (primary)hypertension, and Bilateral Lower Extremity Edema. MEASUREMENTS: 2D/MM Value Range Doppler ValueRange EF Mod BP 45 % [ 52 - 72 ] LISSET Vmax 2.33cm2 [ 2.00 - 4.00 ] EF Teich MM 50 % [ 52 - 72 ] AV Mean PG 7mmHg LVIDd 2D 5.85 cm [ 4.20 - 5.80 ] AV Peak Rajinder 1.83m/s [ 1.00 - 1.70 ] LVIDd MM 5.85 cm [ 4.20 - 5.80 ] AV Peak PG 14mmHg LVIDs 2D 3.97 cm [ 2.50 - 4.00 ] AV VTI 31.44cm LVIDs MM 4.35 cm [ 2.50 - 4.00 ] LVOT Diam 2.03 cm[ 1.70 - 2.10 ] LVPWd 2D 1.13 cm [ 0.60 - 1.00 ] LVOT Peak Rajinder 1.13m/s [ 0.70 - 1.10 ] LVPWd MM 1.27 cm [ 0.60 - 1.00 ] LVOT VTI 22.48cm IVSd 2D 1.31 cm [ 0.60 - 1.00 ] MV E Peak Rajinder 1.19m/s [ 0.60 - 1.30 ] IVSd MM 1.13 cm [ 0.60 - 1.00 ] MV Decel Time 210msec [ 104 - 258 ] LA Dimension MM 3.97 cm [ 3.00 - 4.00 ] PV Peak Rajinder 1.19m/s [ 0.40 - 0.80 ] AoR Diam MM 3.60 cm [ 3.10 - 3.70 ] TR Peak Rajinder 2.75m/s [ 1.00 - 2.80 ] LA Volume Index 26 cc/m2 [ 16 - 34 ] TR Peak PG 30mmHg ACS MM 2.29 cm [ 1.50 - 2.60 ] RVSP 38.00mmHg [ 10.00 - 36.00 ] Lateral E` 0.11 m/s [ 0.10 - 0.15 ] E/E` 11 2D/MM Value Range Doppler ValueRange - FINDINGS: Interpretation Site: Exam was interpreted at [facility] [place]. Left Ventricle: Mild concentric left ventricular hypertrophy. Mild enlargement of leftventricle cavity. Mild global left ventricular systolic dysfunction. Diastolic dysfunctionis present. Ejection fraction is measured at 45 %. Right Ventricle: Normal right ventricular size. Normal right ventricular systolicfunction. Left Atrium: There is mild enlargement of left atrium. Right Atrium: The right atrium is normal in size. Atrial Septum: Normal atrial septum. Mitral Valve: Normal appearance of the mitral valve. Mild mitral valve regurgitation.There is no hemodynamically significant mitral stenosis by Doppler. Aortic Valve: No evidence of hemodynamically significant aortic stenosis by Doppler.Aortic cusps appear mildly sclerotic. Trileaflet aortic valve. No aorticregurgitation. Tricuspid Valve: Normal appearance of the tricuspid valve. Estimated peak RVSP is 45 mmHg.Mild tricuspid regurgitation. Pulmonic Valve: Normal appearance of the pulmonic valve. Mild pulmonic regurgitation. Pericardium: Normal pericardium with no significant pericardial effusion. Aorta: Sinus of Valsalva is normal. IVC: Dilated IVC without respiratory collapse consistent with elevated rightatrial pressure (>15 mmHg). Pulmonary Artery: Normal pulmonary artery size. CONCLUSIONS: Mild concentric left ventricular hypertrophy. Mild enlargement of leftventricle cavity. Mild global left ventricular systolic dysfunction. Diastolic dysfunctionis present. Ejection fraction is measured at 45 %. There is mild enlargement of left atrium. Mild mitral valve regurgitation. Estimated peak RVSP is 45 mmHg. Mild tricuspid regurgitation. Mild pulmonic regurgitation. Atrial fibrillation with heart rates 100-110 beats per minute. Electronically Signed By: Dr. Jomar Ayala [facility] 06/29/2024 10:45:44 AM CDT Ryan De Los Santos MD CV ECHO PROCEDURES Final Result * ECG 12 lead (06/19/2024 3:35 PM CDT) Ryan De Los Santos MD ECG ORDERABLES Final Res ult from Last 3 Months Insurance [facility] HMO Care Teams It Application Administrator Relationship Specialty Start Date End Date Kel Hope MD [address] [place] [address] PCP - General Internal Medicine 06/07/24
--- OUTSIDE RECORDS SUMMARY | 2024-07-09 14:30 | XMS_ITS | Clinical Summary ---
Author Organization [facility] Address [address] [place] [address] Care Team Providers Care Senior Government Program Analyst Name Role Phone Unavailable Primary Care Provider [...]
--- OUTSIDE RECORDS SUMMARY | 2024-07-09 14:30 | XMS_ITS | Encounter Summary ---
Author Organization [facility] Address [address] [place] [address] Care Team Providers Care Data Base Design Analyst Name Role Phone Kel Hope MD Primary Care Provider Reason for Referral * Sleep Medicine (Routine) - Authorized Specialty Diagnoses / Procedures Referred By Contac t Referred To Contact Diagnoses DANIEL (obstructive sleep apnea) Procedures Portable/Home Sleep Study Yoandy Dhillon MD [address] [address] Phone: tel: fax: [address] [address] Referral ID Status Reason Start Date Expiration Date V isits Requested Visits Authorized [id number] Authorized 06/19/2024 07/19/2025 1 1 Reason for Visit * Sleep Medicine (Routine) - Authorized Specialty Diagnoses / Procedures Referred By Contac t Referred To Contact Diagnoses DANIEL (obstructive sleep apnea) Procedures Portable/Home Sleep Study Yoandy Dhillon MD [address] [address] Phone: tel: fax: [address] [address] Referral ID Status Reason Start Date Expiration Date V isits Requested Visits Authorized [id number] Authorized 06/19/2024 07/19/2025 1 1 Encounter Details Date Type Department Care Team (Latest Contact Info) Description 07/08/2024 1:00 PM CDT - 07/08/2024 11:59 PM CDT Hospital Encounter [facility] [address] [place] [address] DANEIL (obstructive sleep apnea) Discharge Disposition: Discharge to home or self care Social History Tobacco Use Types Packs/Day Years Used Date Smoking Tobacco: Former Cigarettes Q uit: 1996 Smokeless Tobacco: Never Sex and Gender Information Value Date Recorded Sex Assigned at Not on file Legal Sex Male 2:17 PM CDT Gender Identity Not on file Sexual Orientation Not on file documented as of this encounter Medications at Time of Discharge amLODIPine (NORVASC) 10 mg tablet Take 1 tablet (10 mg total) by mouth daily apixaban (ELIQUIS) 5 mg tabletIndications: atrial fibrillation Take 1 tablet (5 mg total) by mouth 2 (two) times a day 180 tablet 3 06/19/2024 6 doxycycline monohydrate 50 mg tablet Take 1 tablet (50 mg total) by mouth 2 (two) times a day furosemide (LASIX) 20 mg tabletIndications: Bilateral lower extremity edema Take 1 tablet (20 mg total) by mouth daily 90 tablet 3 06/19/2024 6 hydroCHLOROthiazid e (HYDRODIURIL) 25 mg tablet Take 1 tablet (25 mg total) by mouth daily irbesartan (AVAPRO) 150 mg tablet Take 1 tablet (150 mg total) by mouth nightly lovastatin (MEVACOR) 40 mg tablet Take 1 tablet (40 mg total) by mouth nightly multivitamin with minerals tablet Take 1 tablet by mouth daily omega-3 fatty acids-fish oil 300-1,000 mg capsule Take 2 capsules (2 g total) by mouth daily propranolol LA (INDERAL LA) 120 mg 24 hr capsule Take 1 capsule (120 mg total) by mouth daily documented as of this encounter Discharge Disposition Disposition Code Departure Means Destination Discharge to home or self care documented in this encounter Plan of Treatment Scheduled Orders Name Type Priority Associated Diagnoses Orde r Schedule Portable/Home Sleep Study Sleep Center Routine DANIEL (obstructive sleep apnea) Once for 1 Occurrences starting 07/08/2024 until 07/08/2024 documented as of this encounter Visit Diagnoses Diagnosis DANIEL (obstructive sleep apnea) Obstructive sleep apnea (adult) (pediatric) documented in this encounter Care Teams Data Base Design Analyst Relationship Specialty Start Date End Date Kel Hope MD [address] [place] [address] PCP - General Internal Medicine 06/07/24 documented as of this encounter
--- OUTSIDE RECORDS SUMMARY | 2024-07-09 14:30 | XMS_ITS | Referral Summary ---
Author Organization [place] [address] [address] [place] [address] [address] [place] [address] Care Team Providers Care Afterschool Babysitter Name Role Phone Kel Hope MD Primary Care Provider Encounters Date Type Department Care Team Description 07/08/2024 1:00 PM CDT - 07/08/2024 11:59 PM CDT Hospital Encounter [facility] [address] [place] [address] DANIEL (obstructive sleep apnea) Discharge Disposition: Discharge to home or self care 06/28/2024 3:[address] [facility] Cardiology at [address] [place] [phone] Atrial fibrillation, unspecified type (HCC); Essential hypertension; Bilateral lower extremity edema 06/27/[address] [facility] Medical [facility] Cardiology [address] [place] [address] [address] [place] [phone] Ryan De Los Santos MD 06/19/2024 10:15 AM CDT Office Visit [facility] Cardiology at [address] [place] [address] Ryan De Los Santos MD Essential hypertension (Primary Dx); Atrial fibrillation, unspecified type (HCC); Mixed hyperlipidemia; Morbid obesity with BMI of 40.0-44.9, adult (HCC); Morbid obesity (HCC); Bilateral lower extremity edema; DANIEL (obstructive sleep apnea); Alcohol abuse from Last 3 Months Allergies Active Allergy Reactions Criticality Noted Date Comments Alpha-3 Fatty Acids Other (See comments) 2024 Indigestion [...] PM CDT Narrative 06/29/2024 10:[address] [facility] Cardiology [facility], [address], [place] [address] P:[phone] P:[phone] Echocardiographic Report Patient Name: YAJAIRA FRANZ : [...] FINDINGS: Interpretation Site: Exam was interpreted at [facility]. Left Ventricle: Mild concentric left ventricular hypertrophy. [...] minute. Electronically Signed By: Dr. Jomar Ayala [facility] 06/29/2024 10:45:44 AM CDT Procedure Note Jomar Ayala MD - 06/29/2024 [facility] Cardiology [address] , [address], [place] [address] P:[phone] P:[phone] Echocardiographic Report Patient Name: YAJAIRA FRANZ : 1960 Study Date: 06/28/2024 2:52:03 PM Gender: M Tech: Location: [facility] Ref Provider: RYAN DE LOS SANTOS Height(Cm): [...] FINDINGS: Interpretation Site: Exam was interpreted at [facility]. Left Ventricle: Mild concentric left ventricular hypertrophy. [...] minute. Electronically Signed By: Dr. Jomar Ayala [facility] 06/29/2024 10:45:44 AM CDT Ryan De Los Santos MD CV ECHO PROCEDURES Final Result * ECG 12 lead (06/19/2024 3:35 PM CDT) Ryan De Los Santos MD ECG ORDERABLES Final Res ult from Last 3 Months Insurance [employer] [facility] HMO Care Teams Afterschool Babysitter Relationship Specialty Start Date End Date Kel Hope MD [address] [place] [address] PCP - General Internal Medicine 06/07/24
[2024-07-09 14:43] LABS: Hematocrit 30.9 % (40.0-54.0); Hemoglobin 10.5 g/dL (14.0-18.0); Mean Corpuscular Volume 97.2 fL (78.0-102.0); Mean Platelet Volume 9.8 fl (8.7-11.0); Platelet Count Result 141 K/mm3 (150-420); Red Blood Count 3.18 M/mm3 (4.70-6.10); Red Cell Distribution Width 13.9 % (11.6-14.4); White Blood Count 5.6 K/mm3 (4.8-10.8)
[2024-07-09 16:07] LABS: Alanine Aminotransferase 60 U/L (6-50); Albumin Level 4.4 g/dL (3.5-5.1); Alkaline Phosphatase 100 U/L (38-126); Anion Gap 14 mmol/L (4-12); Aspartate Amino Transferase 134 U/L (17-59); Bilirubin,Total 0.8 mg/dL (0.2-1.3); Blood Urea Nitrogen 32 mg/dL (9-20); Calcium 9.9 mg/dL (8.4-10.2); Carbon Dioxide 25 mmol/L (22-30); Chloride 95 mmol/L (98-107); Estimated Glomerular Filt Rate 47; Glucose 109 mg/dL (65-110); Magnesium 0.7 mg/dL (1.6-2.3); Osmolality Calculated 285 mOsm/kg (285-295); Sodium 134 mmol/L (137-145); Total Protein 7.5 g/dL (6.3-8.2)
== END 2024-07-09 14:28 | disposition home or self-care (01) ==
LOC: CHSLAB 14:28
PROVIDERS: PCP Internal Medicine; Visit Provider Nurse Practitioner Family
DX: I48.91 Unspecified atrial fibrillation (principal); F10.10 Alcohol abuse, uncomplicated; E83.52 Hypercalcemia; D64.9 Anemia, unspecified; N17.9 Acute kidney failure, unspecified
CPT/HCPCS: 36415; 80053; 83735; 84439; 84443; 85027

== ENCOUNTER 2024-07-24 08:25 | Outpatient (CLI) | payer OTHER, SELFPAY ==
--- OUTSIDE RECORDS SUMMARY | 2024-07-24 08:29 | XMS_ITS | Referral Summary ---
Author Organization [place] [address] [place] [address] Care Team Providers Care Cinder Snapper Name Role Phone Kel Hope MD Primary Care Provider Encounters Date Type Department Care Team Description 07/10/2024 Telephone [facility]iology [address] [place] [address] [place] [phone] Ryan De Los Santos MD 06/28/2024 3:00 PM CDT Ancillary Procedure [facility] Medical Group Cardiology at [address] [place] [phone] Atrial fibrillation, unspecified type (HCC); Essential hypertension; Bilateral lower extremity edema 06/27/2024 Telephone [facility] Cardiology [address] [place] [address] [place] [phone] Ryan De Los Santos MD 06/19/2024 10:15 AM CDT Office Visit [facility] Medical Group Cardiology at [address] [place] [address] Ryan De Los Santos MD Essential hypertension (Primary Dx); Atrial fibrillation, unspecified type (HCC); Mixed hyperlipidemia; Morbid obesity with BMI of 40.0-44.9, adult (HCC); Morbid obesity (HCC); Bilateral lower extremity edema; DANIEL (obstructive sleep apnea); Alcohol abuse from Last 3 Months Allergies Active Allergy Reactions Criticality Noted Date Comments [place]-3 Fatty Acids Other (See comments) 2024 Indigestion Lisinopril Muscle pain Medium 06/19/2024 Niacin Itching Low 06/19/2024 Medications irbesartan (AVAPRO) 150 mg tablet Take 1 tablet (150 mg total) by mouth nightly Active hydroCHLOROthiazi de (HYDRODIURIL) 25 mg tablet Take 1 tablet [...] mouth daily Active apixaban (ELIQUIS) 5 mg tabletIndications :atrial fibrillation Take 1 tablet (5 mg total) by mouth 2 (two) times a day 180 tablet 3 5 06/20/19 26 Active furosemide (LASIX) 20 mg tabletIndications :Bilateral lower extremity edema Take 1 tablet (20 mg total) by mouth daily 90 tablet 3 5 06/20/19 26 Active Active Problems Problem Noted Date Diagnosed [...] 10:28 AM CDT Height 167.6 cm (5' 6) 06/19/2024 10:28 AM CDT Body Mass Index [...] PM CDT Narrative 06/29/2024 10:46 AM CDT [facility] Medical Group Cardiology [address] [facility], [address], [place] [address] P:[phone] P:[phone] Echocardiographic Report Patient Name: YAJAIRA FRANZ : [...] FINDINGS: Interpretation Site: Exam was interpreted at [facility]. Left Ventricle: Mild concentric left ventricular hypertrophy. [...] minute. Electronically Signed By: Dr. Jomar Ayala [facility] 06/29/2024 10:45:44 AM CDT Procedure Note Jomar Ayala MD - 06/29/2024 [facility] Medical Group Cardiology [address] [facility], [address], [place] [address] P:[phone] P:[phone] Echocardiographic Report Patient Name: YAJAIRA FRANZ : [...] FINDINGS: Interpretation Site: Exam was interpreted at [facility]. Left Ventricle: Mild concentric left ventricular hypertrophy. [...] minute. Electronically Signed By: Dr. Jomar Ayala [facility] 06/29/2024 10:45:44 AM CDT us Ryan De Los Santos MD CV ECHO PROCEDURES Final Result * ECG 12 lead (06/19/2024 3:35 PM CDT) Ryan De Los Santos MD ECG ORDERABLES Final Res ult from Last 3 Months Insurance [employer] [facility] HMO Care Teams Cinder Snapper Relationship Specialty Start Date End Date Kel Hope MD [address] [place] [address] PCP - General Internal Medicine 06/07/24
--- OUTSIDE RECORDS SUMMARY | 2024-07-24 08:30 | XMS_ITS | Clinical Summary ---
Author Organization [facility] [address] [facility] [address] [place] [address] Care Team Providers Care Shipping Agent Name Role Phone Kel Hope MD Primary Care Provider [phone] Allergies Active Allergy Reactions Criticality Noted Date Comments [place]-3 Fatty Acids Other (See comments) 2024 Indigestion [...] Type Department Care Team Description 07/10/2024 Telephone [facility] Medical Group Cardiology [address] [place] [address] Ryan De Los Santos MD 06/28/2024 3:00 PM CDT Ancillary Procedure [facility] Medical Group Cardiology at [address] [place] [address] Atrial fibrillation, unspecified type (HCC); Essential hypertension; Bilateral lower extremity edema 06/27/2024 Telephone [facility] Cardiology [address] [facility] [address] [place] [address] Ryan De Los Santos MD 06/19/2024 10:15 AM CDT Office Visit [facility] Medical Group Cardiology at [address] [place] [address] Ryan De Los Santos MD Essential hypertension [...] PM CDT Narrative 06/29/2024 10:46 AM CDT [facility] Medical Group Cardiology [address], [place] [address] P:[phone] P:[phone] Echocardiographic Report Patient Name: YAJAIRA FRANZ : [...] FINDINGS: Interpretation Site: Exam was interpreted at [facility]. Left Ventricle: Mild concentric left [...] minute. Electronically Signed By: Dr. Jomar Ayala [facility] 06/29/2024 10:45:44 AM CDT Procedure Note Jomar Ayala MD - 06/29/2024 [facility] Medical Group Cardiology [address] [facility], [address], [place] [address] P:[phone] P:[phone] Echocardiographic Report Patient Name: YAJAIRA FRANZ : [...] FINDINGS: Interpretation Site: Exam was interpreted at [facility]. Left Ventricle: Mild concentric left [...] minute. Electronically Signed By: Dr. Jomar Ayala [facility] 06/29/2024 10:45:44 AM CDT Ryan De Los Santos MD CV ECHO PROCEDURES Final Result * ECG 12 lead (06/19/2024 3:35 PM CDT) Ryan De Los Santos MD ECG ORDERABLES Final Res ult from Last 3 Months Insurance [facility] HMO Care Teams Shipping Agent Relationship Specialty Start Date End Date Kel Hope MD [address] [place] [address] PCP - General Internal Medicine 06/07/24
[2024-07-24 08:40] LABS: Hematocrit 30.8 % (40.0-54.0); Hemoglobin 10.3 g/dL (14.0-18.0); Mean Corpuscular HGB Conc 33.4 g/dL (32-36); Mean Corpuscular Hemoglobin 32.8 pg (27.0-31.0); Mean Corpuscular Volume 98.1 fL (78.0-102.0); Mean Platelet Volume 9.7 fl (8.7-11.0); Platelet Count Result 112 K/mm3 (150-420); Red Blood Count 3.14 M/mm3 (4.70-6.10); Red Cell Distribution Width 14.3 % (11.6-14.4); White Blood Count 5.2 K/mm3 (4.8-10.8)
[2024-07-24 09:19] LABS: Band Neutrophils Percent 0 % (0-6); Basophils Absolute Manual 0.05 K/mm3 (0-0.1); Basophils Percent Manual 1 % (0-1); Eosinophils Percent Manual 4 % (1-6); Lymphocytes Percent Manual 25 % (18-44); Monocytes Absolute Manual 0.93 K/mm3 (0.1-0.90); Monocytes Percent Manual 18 % (3-9); Neutrophils Absolute Manual 2.75 K/mm3 (1.3-6.7); Neutrophils Percent Manual 53 % (46-73); Platelet Estimate Adequate (Adequate); Poikilocytosis 1+; Total Cells Counted 100
[2024-07-24 09:20] LABS: Anisocytosis 2+; Hypochromasia 2+; Schistocytes None Seen
== END 2024-07-24 08:26 | disposition home or self-care (01) ==
LOC: CHSLAB 08:27
PROVIDERS: PCP Internal Medicine; Visit Provider Internal Medicine
DX: D64.9 Anemia, unspecified (principal)
CPT/HCPCS: 36415; 85025

== ENCOUNTER 2024-08-25 20:44 | Emergency (ER) | payer MEDICARE, SELFPAY ==
[2024-08-25] VITALS (24 sets, daily range): BP systolic 98–151; BP diastolic 70–130; PULSE 126–162; RESP 13–37; TEMP 36.1; O2SAT 84–100
--- NOTE | ~2024-08-25 | CT_ITS ---
Clinical Indication: Pulmonary embolus CT Scan of the Chest with Contrast: Technique: Contiguous sections were acquired throughout the chest after intravenous administration of 100 cc of Omnipaque 350. Dose reduction technique was used on this scan by utilizing automated expos ure control and iterative reconstruction technique. The dose-length product (DLP) was 794.23 mGy-cm. COMPARISON: 08/25/2024 at 10:50 PM Findings: There is no evidence of any significant mediastinal, hilar or axillary lymphadenopathy. There is no f illing defect in the pulmonary arterial tree to suggest pulmonary embolus. There is no evidence of ao rtic dissection or aneurysm. There is no evidence of pleural or pericardial effusion. The lungs are clear. No pulmonary nodules or infiltrates are noted. Images through the upper abdomen reveal cirrhotic morphology of liver with small amount of perihepati c ascites. Impression: No evidence of pulmonary embolus, aortic dissection, or aortic aneurysm. Clear lungs. Cirrhotic liver with small amount of perihepatic ascites. Reviewed, dictated and finalized at location . Impression: No evidence of pulmonary embolus, aortic dissection, or aortic aneurysm. Clear lungs. Cirrhotic liver with small amount of perihepatic ascites.
--- NOTE | ~2024-08-25 | XR_ITS ---
EXAMINATION: XR chest 1V portable Exam Date/Time: 08/25/2024 21:10 CDT HISTORY: SHORTNESS OF BREATH Comparison: 05/24/2024. RESULT: Lines, tubes, and devices: Partially visualized cervical fusion hardware. Lungs and pleura: Mild diffuse reticular opacities. No focal consolidation. No pneumothorax or large pleural effusion. Cardiomediastinal silhouette: Stable. Other: No acute osseous or upper abdominal finding. IMPRESSION: Mild interstitial edema. Reviewed, dictated and finalized at location K. IMPRESSION: Mild interstitial edema.
--- NOTE | ~2024-08-25 | CT_ITS ---
Clinical Indication: Shortness of breath CT Scan of the Chest with Contrast: Technique: Contiguous sections were acquired throughout the chest after intravenous administration of 200 cc of Omnipaque 350. Dose reduction technique was used on this scan by utilizing automated expos ure control and iterative reconstruction technique. The dose-length product (DLP) was 885.50 mGy-cm. Findings: There is no evidence of any significant mediastinal, hilar or axillary lymphadenopathy. There is no f illing defect in the pulmonary arterial tree to suggest pulmonary embolus. There is no evidence of ao rtic dissection or aneurysm. There is no evidence of pleural or pericardial effusion. The lungs are clear. No pulmonary nodules or infiltrates are noted. Images through the upper abdomen reveal nodular contour of liver, compatible cirrhotic change. Small amount of perihepatic ascites present.. Impression: No pulmonary embolus seen. Clear lungs. Cirrhotic liver with small amount of perihepatic ascites. Reviewed, dictated and finalized at [facility]. Impression: No pulmonary embolus seen. Clear lungs. Cirrhotic liver with small amount of perihepatic ascites.
--- OUTSIDE RECORDS SUMMARY | 2024-08-25 20:50 | XMS_ITS | Encounter Summary ---
Author Organization [facility] Address [facility] [place] [address] Care Team Providers Care Consulting Nurse Name Role Phone Raysa Miguel MD Primary Care Provider [phone] Jonna Moss [facility]- Unavailable Regan Lam MD Unavailable [phone] Shahid Mansfield MD Unavailable [phone] Encounter Details Date Type Department Care Team (Late st Contact Info) Description 05/31/2021 Abstract [facility]-[address] [place] [address] [place] [address] Abstract, Doc Prevea Social History Tobacco Use [...] medication documented in this encounter Care Teams Consulting Nurse Relationship Specialty Start Date End Date [place] [address] PCP - General FAMILY PRACTICE 04/22/16 Jonna Moss, [place] [address] NURSE PRACTITIONER 04/22/16 [place] [address] CARDIOVASCULAR DISEASE 04/22/16 Shahid Mansfield MD [address] [place] [address] ORTHOPAEDIC SURGERY 04/22/16 documented as of this encounter
--- OUTSIDE RECORDS SUMMARY | 2024-08-25 20:50 | XMS_ITS | Clinical Summary ---
Author Organization [facility] Address [address] [place] [address] Care Team Providers Care Business Analytics Intern Name Role Phone Unavailable Primary Care Provider [...] 09/19/2009 Zoster Immunization (1 of 2) 09/19/2009 SARS-COV-2 Immunization (4 - season) 2023 12/25/2020, 04/24/2020, 03/27/2020 Influenza Immunization (Seas on Ended) 2024 03/16/2020 Respiratory Syncytial Virus (RSV) Immunization (Adult) (1 - 1-dose 75+ series) 09/19/2034 Hepatitis B Immunization Aged Out No longer eligible based on patient's age to complete this topic Human Papillomavirus (HPV) Immunization Aged Out No longer eligible b ased on patient's age to complete this topic Meningococcal Immunization (ACWY) Aged Out No longer eligible b ased on patient's age to complete this topic Rotavirus Immunization Aged Out No lo nger eligible based on patient's age to complete this topic
--- OUTSIDE RECORDS SUMMARY | 2024-08-25 20:50 | XMS_ITS | Encounter Summary ---
Author Organization [facility] Address [address] [place] [address] Care Team Providers Care Combination Presser Name Role Phone Raysa Miguel MD Primary Care Provider [phone] Jonna Moss [facility]- Unavailable Regan Lam MD Unavailable [phone] Shahid Mansfield MD Unavailable [phone] Encounter Details Date Type Department Care Team (Late st Contact Info) Description 05/06/2017 Abstract [facility] [address] [place], [place] [address] , Generic Conversion, Social History Tobacco Use [...] Rule Out 01/31/2021 01/31/2021 01/31/2021 6:37 PM CONGRESSIONAL ASSISTANT COVID-19 Rule Out 05/16/2021 05/16/2021 05/16/2021 6:33 PM CDT documented as of this encounter Care Teams Combination Presser Relationship Specialty Start Date End Date Raysa Miguel MD [address] [place] [address] PCP - General FAMILY PRACTICE 04/22/16 Jonna Moss, [facility] [address] NURSE PRACTITIONER 04/22/16 Regan Lam MD [facility] [place] [address] CARDIOVASCULAR DISEASE 04/22/16 Shahid Mansfield MD [address] [place] [address] ORTHOPAEDIC SURGERY 04/22/16 documented as of this encounter
--- OUTSIDE RECORDS SUMMARY | 2024-08-25 20:50 | XMS_ITS | Clinical Summary ---
Author Organization [facility] Address [address] [place] [address] Care Team Providers Care Bread Racker Name Role Phone Raysa Miguel MD Primary Care Provider [phone] Jonna Moss [employer]ENGRAVING PRINTER- Unavailable Regan Lam MD Unavailable [phone] Shahid Mansfield MD Unavailable [phone] Allergies Active Allergy Reactions Criticality Noted Date [...] Status Comments Brother Alive Father (Age 54) [place] Maternal Grandfather Maternal Grandmother Mother (Age 67) [...] 1:08 PM CDT Height 166.4 cm (5' 5.5) 10/04/2021 1:08 PM CDT Body Mass Index [...] patient's age to complete this topic Insurance [facility] Care Teams Bread Racker Relationship Specialty Start Date End Date Raysa Miguel MD [address] [place] [address] [place] [address] PCP - General FAMILY PRACTICE 04/22/16 Jonna Moss, PHOTOENGRAVING PRINTER- [address] [place] [address] NURSE PRACTITIONER 04/22/16 Regan Lam MD [address] [place] [address] CARDIOVASCULAR DISEASE 04/22/16 Shahid Mansfield MD [address] [place] [address] ORTHOPAEDIC SURGERY 04/22/16
--- NOTE | 2024-08-25 20:53 | ECG_ITS ---
Test Date: 2024-08-25 21:04:03 Measurements Intervals [place] Rate: 156 P: 0 RI: 0 QRS: 127 QRSD: 102 T: 33 QT: 283 QTc: 457 Interpretive Statements ATRIAL FIBRILLATION WITH RAPID VENTRICULAR RESPONSE RIGHT AXIS DEVIATION [QRS AXIS > 100] LOW QRS VOLTAGE IN EXTREMITY LEADS [QRS DEFLECTION < 0.5 mV IN LIMB LEADS] SEPTAL MYOCARDIAL INFARCTION , OF INDETERMINATE AGE [40+ ms Q WAVE IN V1/V2] CRITICAL TEST RESULT Compared to ECG 05/24/2024 11:39:15 Low QRS voltage now present Myocardial infarct finding still present Electronically Signed On 08-26-2024 22:30:18 CDT by Jomar Ayala M.D.
--- NOTE | 2024-08-25 20:56 | ED_ITS ---
HPI - SOB/Dyspnea General Chief Complaint: Shortness of Breath/Dyspnea Stated Complaint: SOB Time Seen by Provider: 08/25/24 20:51 Source: patient Mode of arrival: EMS Limitations: no limitations History of Present Illness HPI Narrative: Patient is a 63-year-old male with known AFib and off his Eliquis at this time for peptic ulcer disease /recent polyp removal here with shortness of breath and a ground level fall at home. EMS was called for a lift assist and further found him to be short of breath and tachycardic and brought him to the emergency room for evaluation. Patient was post have a electric cardioversion of his AFib in the near future. MD elicited complaint: shortness of breath Pertinent past history: COPD and other ( Hypertension) Onset (ago): day(s) ( 1) Context: other ( patient having shortness of breath and a ground level fall here for evaluation; elevated heart rate with known AFib) Timing: constant Severity: moderate Exacerbating factors: nothing Relieving factors: nothing Known history of: COPD and other ( AFib) Treatment prior to arrival: oxygen ( started by EMS) Related Data Home oxygen amount: none Home Medications ?Medication ?Instructions ?Recorded ?Confirmed ?Last Taken ?Type amlodipine 10 mg tablet 10 mg PO DAILY 04/20/22 04/20/22 Unknown History atenolol 50 mg tablet 50 mg PO BID 04/20/22 04/20/22 Unknown History hydrochlorothiazide 25 mg tablet 25 mg PO DAILY 04/20/22 04/20/22 Unknown History irbesartan 150 mg tablet 150 mg PO DAILY 04/20/22 04/20/22 Unknown History Allergies Allergy/AdvReac Type Severity Reaction Status Date / Time azithromycin Allergy Unknown Verified 04/20/22 09:45 ezetimibe (From Vytorin) Allergy Unknown Verified 04/20/22 09:45 simvastatin (From Vytorin) Allergy Unknown Verified 04/20/22 09:45 Review of Systems 2 Review of Systems: All systems reviewed & are unremarkable except as noted in HPI and below Constitutional: Constitutional: Reports no additional constitutional complaints Eyes: Eyes: Reports no additional eye complaints ENT: Reports system reviewed and no additional complaints, except as documented Cardiovascular: Cardiovascular: Reports no additional cardiovascular complaints Respiratory: Respiratory: Reports no additional respiratory complaints Gastrointestinal: Gastrointestinal: Reports no additional gastrointestinal complaints Genitourinary: Genitourinary: Reports no additional male genitourinary complaints Musculoskeletal: Musculoskeletal: Reports no additional musculoskeletal complaints Integumentary/Breasts: Skin/Breast: Reports system reviewed and no additional complaints, except as docu Neurologic: Reports system reviewed and no additional complaints, except as documented Psychiatric: Psychiatric: Reports no additional psychiatric complaints Endocrine: Endocrine: Reports no additional endocrine complaints Hematologic/Lymphatic: Hematologic/Lymphatic: Reports no additional hematologic/lymphatic complaints Allergic/Immunologic: Allergic/Immunologic: Reports no additional allergic/immunologic complaints PMFSH Past Medical History Medical History Hypermagnesemia Family History Family History Father Acute myocardial infarction Mother Cerebrovascular accident Social History Social History Smoking packs per day: 1 Smoking cigarettes per day: 20.0 Years smoked: 30 Smoking pack-years: 30.00 Smoking status: Former smoker Tobacco type: cigarettes Second hand tobacco smoke exposure: No Smoking end date: 02/20/06 Alcohol intake: never Substance use: never Substance use type: does not use Lack of Transportation: No Lack of Food: Never True Current Housing: I Have Housing Concerned About Future Housing: No Difficulty Paying Gas/Electric Bills: No Difficulty Paying for Meds: No Currently Unemployed: No Education: High School Diploma/GED Difficulty w/ Childcare or Family Care: No Gender identity (if verbalized by the patient): Male Sexual Orientation (if Verbalized by the Patient): Straight or Heterosexual Spiritual care concerns: No Exam 2 Const: General: ill appearing Nutritional Appearance: well nourished O rientation/consciousness: patient oriented x3 Limitations: no limitations HENMT: Head: normal to inspection Ears: external ears normal F mahesh/Nose/Sinus: Normal external nose present Eyes: Conjunctivae: conjunctivae normal Pupils: Equal, round and reactive pupils present EOM: EOMs intact bilaterally Neck: Neck: normal visual inspection Chest: Chest palpation & inspection: normal inspection of the chest Resp: Effort & Inspection: normal respiratory effort and not labored A uscultation: clear to auscultation bilaterally and no crackles Cardio: Rate: regular rate Rhythm: regular rhythm Heart sounds: no murmurs GI: Inspection: non-distended GI Palp: Yes Soft to palpation and No Tenderness to palpation present (GI) Auscultation: normal bowel sounds : General: Yes bladder normal to palpation Back/Spine/Pelvis: Back: no CVA tenderness Skin: General skin exam: normal color Rashes: no rashes Wounds: no wounds Neuro: General: patient oriented x3, moves all extremities, no meningeal signs, no focal motor deficits and CN's II-XI intact bilaterally Extrem: General: normal to inspection and edema Other: 2+ bilateral pitting edema Psych: Mental Status: mental status grossly normal Affect: normal affect Attitude: cooperative Course Vital Signs Vital signs: Vital Signs Pulse Rate 153 H 08/25/24 20:44 Respiratory Rate 22 H 08/25/24 20:44 Pulse Oximetry 91 08/25/24 20:44 Oxygen Delivery Nasal Cannula 08/25/24 20:44 Oxygen Flow Rate 4 08/25/24 20:44 Temperature 36.1 C L 08/25/24 20:55 Pulse Rate 128 H 08/26/24 00:46 Respiratory Rate 13 08/26/24 00:46 Blood Pressure 108/71 08/26/24 00:46 Pulse Oximetry 95 08/26/24 00:46 Oxygen Delivery Room Air 08/25/24 22:56 Oxygen Flow Rate 4 08/25/24 23:15 MDM - SOB/Dyspnea MDM Narrative Medical decision making narrative: patient is a 63-year-old male with shortness of breath and a ground level fall prior to arrival. We will do a cardiac workup and a septic workup at this time. Lab Data Attestation: I reviewed the patient's lab results. 08/25/24 21:16 08/25/24 20:54 Labs: Lab Results 08/25/24 08/25/24 08/25/24 Range/Units 20:54 21:04 21:16 WBC 7.4 (4.8-10.8) K/mm3 RBC 2.88 L (4.70-6.10) M/mm3 Hgb 9.6 L (14.0-18.0) g/dL Hct 29.3 L (40.0-54.0) % MCV 101.7 (78.0-102.0) fL MCH 33.3 H (27.0-31.0) pg MCHC 32.8 (32-36) g/dL RDW 13.9 (11.6-14.4) % Plt Count 176 (150-420) K/mm3 MPV 9.1 (8.7-11.0) fl Immature Gran % (Auto) 0.3 H (0.0-0.0) % Neut % (Auto) 63.5 (50.0-70.0) % Lymph % (Auto) 23.0 (18.0-42.0) % Cannon % (Auto) 10.0 (2.0-11.0) % Eos % (Auto) 2.0 (1.0-6.0) % Baso % (Auto) 1.2 H (0.0-1.0) % Lymph # (Auto) 1.71 (1.10-4.50) K/mm3 Cannon # (Auto) 0.74 (0.10-0.90) K/mm3 Eos # (Auto) 0.15 (0.02-0.50) K/mm3 Baso # (Auto) 0.09 (0.00-0.10) K/mm3 Abs Immat Gran (auto) 0.02 H (0.00-0.00) K/mm3 Absolute Neuts (auto) 4.72 (1.70-7.20) K/mm3 Absolute Nucleated RBC 0.00 (0.00-0.00) K/mm3 Nucleated RBC % 0.0 (0-0.0) % PT 11.9 (9.50-12.1) Seconds INR 1.1 APTT 28.7 (23.9-30.70) Sec D-Dimer 7.31 H (0.19-0.50) mg/L Sodium 133 L (137-145) mmol/L Potassium 4.5 (3.4-5.0) mmol/L Chloride 96 L (98-107) mmol/L Carbon Dioxide 25 (22-30) mmol/L Anion Gap 12 (4-12) mmol/L BUN 24 H (9-20) mg/dL Creatinine 1.28 (0.7-1.3) mg/dL Estim Creat Clear Calc 63 ml/min Estimated GFR 57 L (59 - ) Glucose 117 H (65-110) mg/dL Calculated Osmolality 281 L (285-295) mOsm/kg Lactic Acid 3.3 H (0.4-2.0) mmol/L Calcium 8.1 L (8.4-10.2) mg/dL Magnesium 1.5 L (1.6-2.3) mg/dL Total Bilirubin 1.0 (0.2-1.3) mg/dL AST 159 H (17-59) U/L ALT 49 (6-50) U/L Alkaline Phosphatase 130 H (38-126) U/L Troponin I 0.106 H* (0.000-0.034) ng/mL NT-Pro-B Natriuret Pep 438 H (19.9-100) pg/mL Total Protein 7.9 (6.3-8.2) g/dL Albumin 4.2 (3.5-5.1) g/dL Imaging Data Attestation: I personally reviewed and interpreted this imaging study as follows: Radiologist's impression: Chest x-ray shows mild CHF pattern of interstitial pulmonary edema CTA of the chest for PE was nondiagnostic and we are needing to really run the test for a better picture to rule out PE CTA of the chest for PE #2 was negative for PE and negative for other acute process ECG Data EKG #1: Attestation: I personally reviewed and interpreted this ECG as follows: ECG completion date: 08/25/24 ECG completion time: 21:59 EKG Interpretation: tachycardia, atrial fibrillation, no ectopy, non- specific ST changes, normal QRS, normal QT and right axis Discharge Plan Discharge Clinical Impression: Atrial fibrillation with rapid ventricular response, Elevated troponin, Hypoxia CHF (congestive heart failure) Qualifiers: Heart failure type: unspecified Heart failure chronicity: acute Qualified Code(s): I50.9 - Heart failure, unspecified Patient Disposition: Acute Care Hospital Condition: Stable Patient Language: Syrian Prescriptions: No Action amlodipine 10 mg tablet 10 mg PO DAILY hydrochlorothiazide 25 mg tablet 25 mg PO DAILY irbesartan 150 mg tablet 150 mg PO DAILY atenolol 50 mg tablet 50 mg PO BID benzonatate 100 mg Capsule 100 mg PO TID PRN (Reason: Cough) Qty: 20 0RF albuterol sulfate 90 mcg/actuation HFA aerosol inhaler 2 puff inhalation QID PRN (Reason: shortness of breath or wheezing) Qty: 8.5 0RF doxycycline hyclate 100 mg Tablet 100 mg PO Q12HR Qty: 10 0RF amoxicillin 500 mg capsule 500 mg PO Q12H Qty: 10 0RF methylprednisolone [Medrol (Renzo)] 4 mg tablets,dose pack See Rx Instructions .ROUTE .COMPLEX Qty: 21 0RF Rx Instructions: orally per package directions Follow-up/Referrals: Kel Hope MD [Primary Care Provider] - Time of Disposition: 00:52
[2024-08-25 21:28] LABS: Hematocrit 29.3 % (40.0-54.0); Hemoglobin 9.6 g/dL (14.0-18.0); Immature Granulocyte Percent A 0.3 % (0.0-0.0); Lymphocytes Absolute Auto 1.71 K/mm3 (1.10-4.50); Mean Corpuscular HGB Conc 32.8 g/dL (32-36); Mean Corpuscular Hemoglobin 33.3 pg (27.0-31.0); Mean Corpuscular Volume 101.7 fL (78.0-102.0); Nucleated Red Blood Cells Absolute Auto 0.00 K/mm3 (0.00-0.00); Nucleated Red Blood Cells Perc 0.0 % (0-0.0); Platelet Count Result 176 K/mm3 (150-420); Red Blood Count 2.88 M/mm3 (4.70-6.10); White Blood Count 7.4 K/mm3 (4.8-10.8)
[2024-08-25 21:35] LABS: Alanine Aminotransferase 49 U/L (6-50); Albumin Level 4.2 g/dL (3.5-5.1); Alkaline Phosphatase 130 U/L (38-126); Anion Gap 12 mmol/L (4-12); Aspartate Amino Transferase 159 U/L (17-59); Bilirubin,Total 1.0 mg/dL (0.2-1.3); Blood Urea Nitrogen 24 mg/dL (9-20); Calcium 8.1 mg/dL (8.4-10.2); Carbon Dioxide 25 mmol/L (22-30); Chloride 96 mmol/L (98-107); Estimated CRCL calculation 63 ml/min; Estimated Glomerular Filt Rate 57; Glucose 117 mg/dL (65-110); Osmolality Calculated 281 mOsm/kg (285-295); Potassium 4.5 mmol/L (3.4-5.0); Sodium 133 mmol/L (137-145); Total Protein 7.9 g/dL (6.3-8.2)
--- OUTSIDE RECORDS SUMMARY | 2024-08-25 21:37 | XMS_ITS | Clinical Summary ---
Author Organization [facility] [address] [facility] [address] Address [address] [place] [address] Care Team Providers Care Metal Sprayer Production Name Role Phone Kel Hope MD Primary Care Provider [phone] Allergies Active Allergy Reactions Criticality Noted Date Comments Hallie-3 Fatty Acids Other (See comments) 2024 Indigestion [...] 90 tablet 3 5 06/20/19 26 Active empagliflozin (JARDIANCE) 10 mg tabletIndications :Heart Failure Take 1 tablet (10 mg total) by mouth daily 90 tablet 3 5 07/30/19 26 Active Active Problems Problem Noted Date Diagnosed Date Cardiomyopathy 07/29/2024 Systolic congestive heart failure 07/29/2024 DANIEL (obstructive sleep apnea) 06/19/2024 Bilateral lower extremity edema 06/19/2024 Morbid obesity 06/19/2024 Morbid obesity with BMI of 40.0-44.9, adult 05/23 Mixed hyperlipidemia 06/19/2024 Atrial fibrillation 06/19/2024 Essential hypertension 06/19/2024 Alcohol abuse 06/19/2024 Encounters Date Type Department Care Team Description 07/29/2024 11:00 AM CDT Ancillary Procedure [facility] Cardiology at [address] [place] [address] Paroxysmal atrial fibrillation (HCC) 07/29/2024 10:30 AM CDT Office Visit [facility] Cardiology at [address] [place] [address] Ryan De Los Santos MD Bilateral lower extremity edema (Primary Dx); DANIEL (obstructive sleep apnea); Paroxysmal atrial fibrillation (HCC); Essential hypertension; Mixed hyperlipidemia; Morbid obesity with BMI of 40.0-44.9, adult (HCC); Alcohol abuse; Cardiomyopathy, unspecified type (HCC); Systolic congestive heart failure, unspecified HF chronicity (HCC) 07/26/2024 Telephone [facility] Cardiology [address] [facility] [address] [place] [phone] Ryan De Los Santos MD 07/10/2024 Telephone [facility] Cardiology [address] [facility] [address] [place] [address] Ryan De Los Santos MD 07/04/2024 Orders Only [facility] Health Information Management [address] [place] [address] Scanning, Provider 06/28/2024 3:00 PM CDT Ancillary Procedure [facility] Cardiology at [address] [place] [address] Atrial fibrillation, unspecified type (HCC); Essential hypertension; Bilateral lower extremity edema 06/27/2024 Telephone [facility] Cardiology [address] [facility] [address] [place] [address] Ryan D eLos Santos MD 06/19/2024 10:15 AM CDT Office Visit [facility] Cardiology at [address] [place] [address] Ryan De Los Santos MD [...] Sign Reading Time Taken Comments Blood Pressure 106/64 07/29/2024 10:29 AM CDT Pulse 104 07/29/2024 10:29 AM CDT Temperature - - Respiratory Rate - - Oxygen Saturation 92% 07/29/2024 10:29 AM CDT Inhaled Oxygen Concentration - - Weight 118.4 kg (261 lb) 07/29/2024 10:29 AM CDT Height 167.6 cm (5' 6) 07/29/2024 10:29 AM CDT Body Mass Index 42.13 07/29/2024 10:29 AM CDT Plan of Treatment Health Maintenance [...] Procedure Name Priority Date/Time Associated Diagnosis Comments HOLTER MONITOR 48 HR Routine 07/29/2024 12:28 PM CDT Paroxysmal atrial fibrillation (HCC) POCT LIPID PANEL Routine 07/29/2024 10:2 5 AM CDT Mixed hyperlipidemia SCAN - LABS 07/04/2024 9:28 PM CDT TRANSTHORACIC ECHO (TTE) COMPLETE W DOPPLER/CF Routine 06/28/2024 2:52 PM CDT Atrial fibrillation, unspecified type (HCC) Essential hypertension Bilateral lower extremity edema ECG 12-LEAD Routine 06/19/2024 3:35 PM CDT Atrial fibrillation, unspecified type (HCC) from Last 3 Months Results * 48 HR Holter Monitor (07/29/2024 12:28 PM CDT) Anatomical Region Laterality Modality Electrocardiogra phy Narrative 08/02/2024 3:32 PM CDT AMBULATORY [facility] OF [employer] REPORT Patient Name: Yajaira Franz Date of : 1960 Requesting Physician: Dr. De Los Santos Date of interpretation: 08/02/24 Type of monitor : 48 hour Holter Date of the study/Enrollment period: 07/29/2024 through 07/31/2024 Indication: Atrial fibrillation Quality of the study: Good Interpretation: A total of 1 day 23 hours 48 minutes diagnostic time analyzed Incessant atrial fibrillation with heart rate variability between 73 and 147 beats per minute with an average heart rate of 101 beats per minute. Low frequency ventricular ectopy totaling 1536 beats which is less than 1% ectopic burden. This consisted of 6 ventricular couplets and the rest of which are isolated PVCs. No significant pauses or ventricular tachycardia. No patient triggered events. Conclusions: Incessant atrial fibrillation with elevated average heart rate of 101 beats per minute. Low frequency ventricular ectopy Voice recognition software was used to complete this document, therefore, legal transcriptionist variances may occur. Ryan De Los Santos MD, [facility] 08/02/24 Ryan De Los Santos MD CV CARDIAC SERVICES PROCE DURES Final Result * POCT lipid panel (07/29/2024 10:25 AM CDT) Pathologist [facility] Cholesterol, POC 174 <200 MG/DL HDL, POC 80 >=40 mg/dL Triglycerides, POC 65 <=149 mg/dL LDL Cholesterol POC 81 <=129 mg/dL Chol/HDL Ratio, POC 2.2 NONE Non-HDL Cholesterol, POC 94 NONE mg/dL Cholesterol Total, POC 174 30 - 199 mg/dL Capillary blood 07/29/2024 1 0:25 AM CDT Ryan De Los Santos MD POINT OF CARE TEST ORDERA BLES Final Result * SCAN - LABS (07/04/2024 9:28 PM CDT) Provider Scanning Final Result * Transthoracic Echo (TTE) Complete W Doppler/CF (06/28/2024 2:52 PM CDT) [facility] EF Mod BP 45 % CONS SCIMAGE Anatomical Region Laterality Modality Ultrasound 06/28/2024 2:52 PM CDT Narrative 06/29/2024 10:46 AM CDT [facility] Cardiology [address], [address], [place] [address] P:[phone] P:[phone] Echocardiographic Report Patient Name: YAJAIRA FRANZ : [...] Interpretation Site: Exam was interpreted at [facility]. Left Ventricle: Mild concentric left [...] Electronically Signed By: Dr. Jomar Ayala [facility] 06/29/2024 10:45:44 AM CDT Procedure Note Jomar Ayala MD - 06/29/2024 [facility] Cardiology [address], [address], [place] [address] P:[phone] P:[phone] Echocardiographic Report Patient Name: YAJAIRA FRANZ : [...] Interpretation Site: Exam was interpreted at [facility]. Left Ventricle: Mild concentric left [...] Electronically Signed By: Dr. Jomar Ayala [facility] 06/29/2024 10:45:44 AM CDT Ryan De Los Santos MD CV ECHO PROCEDURES Final Result * ECG 12 lead (06/19/2024 3:35 PM CDT) Ryan De Los Santos MD ECG ORDERABLES Final Res ult from Last [address] [facility] HMO Care Teams Metal Sprayer Production Relationship Specialty Start Date End Date Kel Hope MD [address] [place] [address] PCP - General Internal Medicine 06/07/24
--- OUTSIDE RECORDS SUMMARY | 2024-08-25 21:37 | XMS_ITS | Clinical Summary ---
Author Organization [facility] Address [address] [place] [address] Care Team Providers Care Cream Tester Name Role Phone Unavailable Primary Care Provider [...]
--- OUTSIDE RECORDS SUMMARY | 2024-08-25 21:37 | XMS_ITS | Encounter Summary ---
Author Organization [facility] Address [address] [place] [address] Care Team Providers Care Roll Or Tape Edge Machine Operator Name Role Phone Kel Hope MD Primary Care Provider Encounter Details Date Type Department Care Team (Late st Contact Info) Description 07/04/2024 Orders Only [facility] [place] Health Information Management [address] [place] [address] Scanning, Provider Social History Tobacco Use Types Packs/Day Years [...] Procedure Name Priority Date/Time Associated Diagnosis Comments SCAN - LABS 07/04/2024 9:28 PM CDT documented in this encounter Results * SCAN - LABS (07/04/2024 9:28 PM CDT) Provider Scanning Final Result documented in this encounter Visit Diagnoses Not on filedocumented in this encounter Care Teams Roll Or Tape Edge Machine Operator Relationship Specialty Start Date End Date Kel Hope MD [address] [place] [address] PCP - General Internal Medicine 06/07/24 documented as of this encounter
--- OUTSIDE RECORDS SUMMARY | 2024-08-25 21:37 | XMS_ITS | Encounter Summary ---
Author Organization [facility] Address [facility] [place] [address] Care Team Providers Care Business Editor Name Role Phone Raysa Miguel MD Primary Care Provider [phone] Jonna Moss [facility]- Unavailable Regan Lam MD Unavailable [phone] Shahid Mansfield MD Unavailable [phone] Encounter Details Date Type Department Care Team (Late st Contact Info) Description 05/31/2021 Abstract [facility]-[address] [place] [address] [place] [address] Abstract, Doc Prevea Social History Tobacco Use [...] medication documented in this encounter Care Teams Business Editor Relationship Specialty Start Date End [place] [phone] PCP - General FAMILY PRACTICE 04/22/16 Jonna Moss, [employer] [place] [id number] NURSE PRACTITIONER 04/22/16 [place] [id number] CARDIOVASCULAR DISEASE 04/22/16 Shahid Mansfield MD [address] [place] [address] ORTHOPAEDIC SURGERY 04/22/16 documented as of this encounter
--- OUTSIDE RECORDS SUMMARY | 2024-08-25 21:37 | XMS_ITS | Encounter Summary ---
Author Organization [facility] Address [address] [place] [address] Care Team Providers Care Advertising Representative Name Role Phone Raysa Miguel MD Primary Care Provider [phone] Jonna Moss [facility]- Unavailable Regan Lam MD Unavailable [phone] Shahid Mansfield MD Unavailable [phone] Encounter Details Date Type Department Care Team (Late st Contact Info) Description 05/06/2017 Abstract [facility] [address] [place], [place] [id number] , Generic Conversion, Social History Tobacco Use [...] Rule Out 01/31/2021 01/31/2021 01/31/2021 6:37 PM POST ANESTHESIA NURSE COVID-19 Rule Out 05/16/2021 05/16/2021 05/16/2021 6:33 PM CDT documented as of this encounter Care Teams Advertising Representative Relationship Specialty Start Date End Date Raysa Miguel MD [address] [place] [address] PCP - General FAMILY PRACTICE 04/22/16 Jonna Moss, [facility] [phone] NURSE PRACTITIONER 04/22/16 Regan Lam MD [facility] [place] [address] CARDIOVASCULAR DISEASE 04/22/16 Shahid Mansfield MD [address] [place] [address] ORTHOPAEDIC SURGERY 04/22/16 documented as of this encounter
--- OUTSIDE RECORDS SUMMARY | 2024-08-25 21:37 | XMS_ITS | Clinical Summary ---
Author Organization [facility] Address [address] [place] [address] Care Team Providers Care Mainspring Fabrication Supervisor Name Role Phone Raysa Miguel MD Primary Care Provider [phone] Jonna Moss [facility]- Unavailable Regan Lam MD Unavailable [phone] Shahid Mansfield MD Unavailable [phone] Allergies Active Allergy Reactions Criticality Noted Date [...] patient's age to complete this topic Insurance [facility] Care Teams [employer] Supervisor Relationship Specialty Start Date End Date Raysa Miguel MD [address] [place] [address] [place] [address] PCP - General FAMILY PRACTICE 04/22/16 Jonna Moss, [facility]- [address] [place] [address] NURSE PRACTITIONER 04/22/16 Regan Lam MD [address] [place] [address] CARDIOVASCULAR DISEASE 04/22/16 Shahid Mansfield MD [address] [place] [address] ORTHOPAEDIC SURGERY 04/22/16
--- OUTSIDE RECORDS SUMMARY | 2024-08-25 21:37 | XMS_ITS | Referral Summary ---
Author Organization [place] [address] [place] [address] Care Team Providers Care Burn Nurse Name Role Phone Kel Hope MD Primary Care Provider Encounters Date Type Department Care Team Description 07/29/2024 11:00 AM CDT Ancillary Procedure [facility] Cardiology at [address] [place] [phone] Paroxysmal atrial fibrillation (HCC) 07/29/2024 10:30 AM CDT Office Visit [facility] Cardiology at [address] [place] [phone] Ryan De Los Santos MD Bilateral lower extremity edema (Primary Dx); DANIEL (obstructive sleep apnea); Paroxysmal atrial fibrillation (HCC); Essential hypertension; Mixed hyperlipidemia; Morbid obesity with BMI of 40.0-44.9, adult (HCC); Alcohol abuse; Cardiomyopathy, unspecified type (HCC); Systolic congestive heart failure, unspecified HF chronicity (HCC) 07/26/2024 Telephone [facility] Cardiology [address] [place] [address] [address] [place] [address] Ryan De Los Santos MD 07/10/2024 Telephone [facility] Cardiology [address] [place] [address] [address] [place] [phone] Ryan De Los Santos MD 07/04/2024 Orders Only [facility] [place] [facility] Information Management [address] [place] [id number] Scanning, Provider 06/28/2024 3:00 PM CDT Ancillary Procedure [facility] Cardiology at [address] [place] [phone] Atrial fibrillation, unspecified type (HCC); Essential hypertension; Bilateral lower extremity edema 06/27/2024 Telephone [facility] Cardiology [address] [place] [address] Ryan De Los Santos MD 06/19/2024 10:15 AM CDT Office Visit [facility] Cardiology at [address] [place] [address] Ryan De Los Santos MD Essential hypertension (Primary Dx); Atrial fibrillation, unspecified type (HCC); Mixed hyperlipidemia; Morbid obesity with BMI of 40.0-44.9, adult (HCC); Morbid obesity (HCC); Bilateral lower extremity edema; DANIEL (obstructive sleep apnea); Alcohol abuse from Last 3 Months Allergies Active Allergy Reactions Criticality Noted Date Comments Dupont-3 Fatty Acids Other (See comments) 2024 Indigestion [...] total) by mouth daily 90 tablet 3 07/30/19 26 Active Active Problems Problem Noted [...] 07/29/2024 10:29 AM CDT Plan of Treatment Not on [...] phy Narrative 08/02/2024 3:32 PM CDT AMBULATORY PROFESSIONAL PROGRAMMER ANALYST REPORT Patient Name: Yajaira Franz Date of [...] was used to complete this document, therefore, channel lip wetter variances may occur. Ryan De Los Santos MD, [facility] 08/02/24 Ryan De Los Santos MD CV CARDIAC [facility] Final Result * POCT lipid panel (07/29/2024 10:25 AM CDT) Cholesterol, POC 174 <200 MG/DL HDL, POC [...] SCAN - LABS (07/04/2024 9:28 PM CDT) us Provider Scanning Final Result * Transthoracic Echo (TTE) Complete W Doppler/CF (06/28/2024 2:52 PM CDT) EF Mod BP 45 % CONS SCIMAGE Anatomical Region Laterality Modality Ultrasound 06/28/2024 2:52 PM CDT Narrative 06/29/2024 10:46 AM CDT [facility] Cardiology [address] [facility], [address], [place] [address] [phone] P:[phone] Echocardiographic Report Patient Name: YAJAIRA FRANZ : [...] FINDINGS: Interpretation Site: Exam was interpreted at [facility]. Left Ventricle: Mild concentric left ventricular hypertrophy. [...] minute. Electronically Signed By: Dr. Jomar Ayala [facility] 06/29/2024 10:45:44 AM CDT Procedure Note Jomar Ayala MD - 06/29/2024 [facility] Cardiology [address] [facility], [address], [place] [address] P:[phone] P:[phone] Echocardiographic Report Patient Name: YAJAIRA FRANZ : [...] FINDINGS: Interpretation Site: Exam was interpreted at [facility] [place]. Left Ventricle: Mild concentric left ventricular [...] minute. Electronically Signed By: Dr. Jomar Ayala [facility] 06/29/2024 10:45:44 AM CDT Ryan De Los Santos MD CV ECHO PROCEDURES Final Result * ECG 12 lead (06/19/2024 3:35 PM CDT) Ryan De Los Santos MD ECG ORDERABLES Final Res ult from Last 3 Months Insurance [facility] HMO Care Teams Burn Nurse Relationship Specialty Start Date End Date Kel Hope MD [address] [place] [address] PCP - General Internal Medicine 06/07/24
[2024-08-25 21:44] LABS: INR 1.1; Partial Thromboplastin Time 28.7 Sec (23.9-30.70); Prothrombin Time 11.9 Seconds (9.50-12.1)
[2024-08-25 21:47] LABS: NT Pro B Type Natriuretic Pept 438 pg/mL (19.9-100)
[2024-08-25 21:57] LABS: Troponin I 0.106 ng/mL (0.000-0.034)
[2024-08-25 22:11] LABS: Magnesium 1.5 mg/dL (1.6-2.3)
[2024-08-25] MEDS: MAGNESIUM SULF 2 GM/WATER 50ML 2 GM/50 ML BAG IVPB (23:08)
[2024-08-25] MEDS: FUROSEMIDE INJ 20 MG/2 ML VIAL 10 MG IV PUSH (23:12)
[2024-08-25] MEDS: dilTIAZem 100 MG/100 ML 100 MG/100 ML BAG IV CONT (23:20)
[2024-08-26] VITALS (46 sets, daily range): BP systolic 99–138; BP diastolic 54–100; PULSE 115–157; RESP 11–37; TEMP 36.6; O2SAT 91–100
[2024-08-26 01:34] LABS: Add Urine Microscopic? YES; Appearance Urine Clear (Clear); Glucose Urine UA 3+ (Negative); Leukocyte Esterase Ur Negative LEU/UL (Negative); Nitrate Urine Negative (Negative); Specific Grav Ur 1.015 (1.010-1.020)
[2024-08-26 01:49] LABS: Troponin I 0.111 ng/mL (0.000-0.034)
--- NOTE | 2024-08-28 12:11 | PC.NURSE ---
PRELIMINARY BLOOD CULTURE NO GROWTH TO DATE
--- NOTE | 2024-09-01 12:28 | PC.NURSE ---
final blood cultures x2 reviewed. no growth after 5 days. no change in plan of care
== END 2024-08-26 04:45 | disposition short-term general hospital (02) ==
PROVIDERS: Emergency Provider Emergency Medicine; PCP Internal Medicine
DX: R79.89 Other specified abnormal findings of blood chemistry (principal); R09.02 Hypoxemia; I11.0 Hypertensive heart disease with heart failure; I50.9 Heart failure, unspecified; I48.91 Unspecified atrial fibrillation; J44.9 Chronic obstructive pulmonary disease, unspecified; Z79.01 Long term (current) use of anticoagulants; Z87.891 Personal history of nicotine dependence; W18.30XA Fall on same level, unspecified, initial encounter
CPT/HCPCS: 36415; 71045; 71275; 80053; 81001; 83605; 83735; 83880; 84484; 85025; 85380; 85610; 85730; 87040; 93005; 96365; 96375; 96376; 99285; J1163; J1938; J3475; Q9967

== ENCOUNTER 2024-08-26 05:19 | Inpatient (IN) | payer MEDICARE, SELFPAY ==
[2024-08-26] VITALS (27 sets, daily range): BP systolic 91–146; BP diastolic 41–68; PULSE 100–146; RESP 16–24; TEMP 36.5–36.9; O2SAT 90–100
--- NOTE | 2024-08-26 | ECHO_ITS ---
Patient Info Name: Jose Davidson Age: 63 years : 1960 Gender: Male Ht: 66 in Wt: 271 lbs BSA: 2.46 m2 HR: 123 bpm BP: 118 / 68 mmHg Technical Quality: Good Exam Date: 08/26/2024 1:44 PM Patient Status: O Admit Date: 08/26/2024 Exam Type: CA echo dop color flow w con Complete two-dimensional, color flow and Doppler transthoracic echocardiogram is performed with contrast to opacify the left ventricle and to improve the deliniation of the left ventricle endocardial borders. Checkman: Agnes Don Attending Provider: Johana Thompson DO Contrast/Agitated Saline Contrast/Ag. Saline: Definity Amount: 2.00 ml Administered By: Agnes Don Existing IV Access: Yes IV Access Condition: patent with no signs of infiltration Summary 1. Left ventricular systolic function is normal, estimated at 60-65. 2. The left ventricular diastolic function is abnormal. 3. Left atrial chamber dimension is mildly enlarged. 4. There is mild mitral valve regurgitation. 5. There is mild tricuspid valve regurgitation. 6. Mild pulmonary hypertension, estimated pulmonary arterial systolic pressure is 37 mmHg. Left Ventricle Left ventricular chamber dimension is normal. Left ventricular systolic function is normal, estimated at 60-65. There is no increased left ventricular wall thickness. Left ventricular septal wall motion is normal. The left ventricular diastolic function is abnormal. Right Ventricle Right ventricular chamber dimension is normal. Right ventricular systolic function is normal. Left Atria Left atrial chamber dimension is mildly enlarged. Right Atria Right atrial chamber dimension is normal. Aortic Valve The aortic valve is trileaflet. There is no aortic valve sclerosis. There is no aortic valve stenosis. There is no aortic valve regurgitation. There is mild aortic valve calcification. Pulmonic Valve The pulmonic valve is normal. There is no pulmonic valve stenosis. There is no pulmonic regurgitation. Mitral Valve The mitral valve has normal leaflets. There is no mitral valve stenosis. There is mild mitral valve regurgitation. Tricuspid Valve The tricuspid valve leaflets are normal. There is no significant tricuspid valve stenosis. There is mild tricuspid valve regurgitation. Mild pulmonary hypertension, estimated pulmonary arterial systolic pressure is 37 mmHg. Pericardium/Pleural The pericardium appears normal. There is no pericardial effusion. Inferior Vena Cava Not well visualized inferior. Aorta The aortic root size at the sinus of Valsalva is normal. The prox ascending aorta size is normal. Left Ventricular Outflow Tract Name Value Normal LVOT 2D LVOT Diameter 2.2 cm LVOT Doppler LVOT Peak Velocity 194 cm/s LVOT Peak Gradient 15 mmHg LVOT Mean Gradient 9 mmHg LVOT VTI 33 cm LVOT VTI/AV VTI Ratio 0.9 LVOT Stroke Volume 128 ml LVOT CO 16.1 l/min LVOT CI 6.6 l/min/m2 Pulmonic Valve Name Value Normal PV Doppler PV Peak Velocity 137 cm/s PV Peak Gradient 7 mmHg Mitral Valve Name Value Normal MV Doppler MV Peak Gradient 9 mmHg MV Mean Gradient 4 mmHg MV Area (Cont Eq VTI) 4.4 cm2 MV Regurgitation Doppler MR Peak Gradient 50 mmHg Tricuspid Valve Name Value Normal TV Regurgitation Doppler TR Peak Velocity 284 cm/s TR Peak Gradient 32 mmHg Estimated PAP/RSVP RA Pressure 5 mmHg <=5 PA Systolic Pressure 37 mmHg <36 RV Systolic Pressure 37 mmHg <36 TV Annular TDI TV Lateral Clara s' Velocity 8.6 cm/s >=9.5 Aortic Valve Name Value Normal AV Doppler AV Peak Velocity 220 cm/s AV Peak Gradient 19 mmHg AV Mean Gradient 11 mmHg AV VTI 36 cm AV Area (Cont Eq VTI) 3.6 cm2 >=3.0 AV Area (Cont Eq Rajinder) 3.4 cm2 AV DI (Rajinder) 0.88 AV Regurgitation 2D LVOT Area 3.9 cm2 Ventricles Name Value Normal LV Dimensions 2D/MM IVS Diastolic Thickness (2D) 0.8 cm 0.6-1.0 LVID Diastole (2D) 6.0 cm 4.2-5.8 LVIW Diastolic Thickness (2D) 0.9 cm 0.6-1.0 LVID Systole (2D) 3.4 cm 2.5-4.0 LVOT Diameter 2.2 cm LV Mass (2D Cubed) 203.59 g 88.00-224.00 LV Mass Index (2D Cubed) 83 g/m2 49-115 Relative Wall Thickness (2D) 0.29 <=0.42 LV Fractional Shortening/Ejection Fraction 2D/MM LV Fractional Shortening (2D) 43 % 25-43 LV EF (2D Teichholz) 74 % LV Diastolic Volume (4C MOD) 176 ml LV EF (4C MOD) 62 % LV Diastolic Volume (2C MOD) 178 ml LV EF (2C MOD) 35 % LV Diastolic Volume (BP MOD) 179 ml 62-150 LV Diastolic Volume Index (BP MOD) 73 ml/m2 34-74 LV Systolic Volume (BP MOD) 87 ml 21-61 LV Systolic Volume Index (BP MOD) 36 ml/m2 11-31 LV EF (BP MOD) 51 % 52-72 LV Diastolic Length (4C) 8.5 cm LV Systolic Length (4C) 7.8 cm LV Stroke Volume (4C MOD) 109 ml Atria Name Value Normal LA Dimensions LA Volume (4C A-L) 63 ml LA Volume (BP A-L) 61 ml RA Dimensions RA Systolic Major [place] Length (4C) 5.6 cm 2.1-2.7 RA Area (4C) 20.6 cm2 <=18.0 Report Signatures
--- NOTE | ~2024-08-26 | US_ITS ---
EXAM: RENAL ULTRASOUND HISTORY: PATRICA COMPARISON: Reference is made to a CTA of the chest (x2) on 08/25/2024 as well as noncontrast enhanced CT examination of the abdomen and pelvis performed 06/04/2024 FINDINGS: RIGHT KIDNEY: 12.6 x 5.9 x 5.6 cm. The parenchyma of the right kidney is increased in echogenicity and thin in caliber. No hydronephrosis or bulky renal calculi. LEFT KIDNEY: 13.7 x 6.2 x 6.3 cm No hydronephrosis or renal calculi. The parenchyma of the left kidney is increased in echogenicity and thin in caliber. BLADDER: Decompressed with a Mcdermott catheter, limiting its evaluation. IMPRESSION: No hydronephrosis or renal calculi. Findings suggesting medical renal disease. Reviewed, dictated and finalized at location A.
--- NOTE | ~2024-08-26 | XR_ITS ---
EXAMINATION: XR chest 1V portable DATE: 08/30/2024 09:16 INDICATION: Increasing oxygen demands TECHNIQUE: frontal view of the chest was obtained. COMPARISON: Chest radiograph and CT in the right upper lung zone dated 08/29/2024 FINDINGS: Cardiomegaly with enlargement of the central pulmonary arteries consistent with pulmonary arterial hy pertension. Worsening consolidation with dense airspace opacities extending from the right hilum to t he right apex and obscuring the right heart border suggestive of atelectasis and/or pneumonia in the right upper and middle lobes. Less confluent airspace opacity right lower lobe. Left lung remains deborah ar. No pulmonary edema, pleural effusion or pneumothorax. IMPRESSION: 1. Airspace opacity right lung most prominent in the right upper and middle lobes which could represe nt atelectasis and/or pneumonia. 2. Cardiomegaly with enlargement of the central pulmonary arteries consistent with pulmonary arterial hypertension. Reviewed, dictated and finalized at location A. IMPRESSION: 1. Airspace opacity right lung most prominent in the right upper and middle lob es which could represent atelectasis and/or pneumonia. 2. Cardiomegaly with enlargement of the central pulmonary arteries consistent w ith pulmonary arterial hypertension.
--- NOTE | ~2024-08-26 | XR_ITS ---
EXAM/PROCEDURE: XR chest 1V portable - 08/27/2024 14:15 CDT HISTORY: 63 years old Male with increased oxygen demand TECHNIQUE: Two view(s) of the chest. COMPARISON: 05/24/2024 FINDINGS: LUNGS/ PLEURA: Mild vascular congestion, bilateral interstitial and alveolar opacities. Superimposed infection cannot be excluded. Airspace opacity in the right upper lung zone may represent pneumonia. HEART/ MEDIASTINUM: Mild cardiomegaly. BONES: Degenerative changes. OTHER: Visualized upper abdomen is unremarkable. IMPRESSION: Moderate pulmonary edema. Superimposed infection cannot be excluded. Airspace opacity in the right up per lung zone may represent pneumonia in appropriate clinical settings. Short-term follow-up chest ra diograph is recommended after appropriate clinical therapy. Reviewed, dictated and finalized at location A. IMPRESSION: Moderate pulmonary edema. Superimposed infection cannot be excluded. Airspace o pacity in the right upper lung zone may represent pneumonia in appropriate clin ical settings. Short-term follow-up chest radiograph is recommended after appro priate clinical therapy.
--- NOTE | ~2024-08-26 | US_ITS ---
EXAM: ABDOMEN ULTRASOUND HISTORY: liver elevated LFT, history of alcohol COMPARISON: Reference is made to CT examination of the abdomen and pelvis dated 06/04/2024 FINDINGS: LIVER: The liver is coarse in echogenicity and increased in size measuring 22 cm in longitudinal dime nsion. Punctate calcifications are present consistent with prior granulomatous disease. Trace perihepatic free fluid is noted, a nonspecific finding. The portal vein is patent, although demonstrating phasic hepatopedal flow. GALLBLADDER: The gallbladder is minimally distended, but demonstrates wall thickening and trace peric holecystic fluid. Focal fatty sparing is identified adjacent to the gallbladder, a nonspecific findin g. BILE DUCTS: A single static measurement of the common bile duct measures 4 mm which is a significant difference from recent CT examination for which MRCP is recommended (may be performed without intrave nous contrast) for confirmation. PANCREAS: Limited evaluation of the pancreas secondary to overlying bowel gas IMPRESSION: Limited evaluation of the pancreas secondary to overlying bowel gas. Trace perihepatic free fluid. Phasic flow within the portal vein. Hepatomegaly. Single static measurement of the common bile duct is 4 mm, a significant difference from recent CT ex amination for which MRCP (may be performed without intravenous contrast) is recommended for confirmat ion. Reviewed, dictated and finalized at location A. IMPRESSION: Limited evaluation of the pancreas secondary to overlying bowel gas. Trace perihepatic free fluid. Phasic flow within the portal vein. Hepatomegaly. Single static measurement of the common bile duct is 4 mm, a significant differ ence from recent CT examination for which MRCP (may be performed without intrav enous contrast) is recommended for confirmation.
--- NOTE | ~2024-08-26 | XR_ITS ---
Portable chest x-ray Comparison: 08/31/2024 Clinical History: Pulmonary edema Findings: Minimal right pleural effusion present. There is mild bibasilar pulmonary edema. Cardiome diastinal silhouette is stable. Bones and soft tissues are unremarkable. Impression: Mild bibasilar pulmonary edema changes with minimal right pleural effusion. Reviewed, dictated and finalized at [facility]. Impression: Mild bibasilar pulmonary edema changes with minimal right pleural effusion.
--- NOTE | ~2024-08-26 | US_ITS ---
EXAMINATION: US venous doppler [facility] DATE: 08/30/2024 13:06 INDICATION: Elevated d-dimer TECHNIQUE: Grayscale ultrasound images without and with compression and Doppler ultrasound images of the bilateral lower extremity veins were obtained. COMPARISON: None. FINDINGS: The visualized portions of right common femoral vein, profunda (deep) femoral vein, femoral vein, pop liteal vein, peroneal veins, posterior tibial veins, and greater saphenous vein outflow are patent. The visualized portions of left common femoral vein, profunda femoral vein, femoral vein, popliteal v ein, peroneal veins, posterior tibial veins, and greater saphenous vein outflow are patent. IMPRESSION: 1. No deep venous thrombosis. Reviewed, dictated and finalized at location A.
--- NOTE | ~2024-08-26 | XR_ITS ---
XR chest 1V portable Ordering provider: Capo Camargo MD History: 63 years Male with . SOB . Comparison: August 27, 2024 FINDINGS: MEDIASTINUM: The cardiac silhouette is moderately enlarged. Congestive haley. LUNGS: No effusions or pneumothorax. Bilateral interstitial thickening with prominent markings in the lower lobes. Residual opacification in the right upper lobe is seen. Follow-up advised. OTHER: No free air under the diaphragm. Degenerat lilliam changes of the spine. IMPRESSION: Residual opacification in the right upper lobe area. Follow-up advised. Cardiomegaly with cardiac decompensation and pulmonary edema. Pneumonitis cannot be excluded. Clinica l correlation and follow-up advised. Reviewed, dictated and finalized at location A. IMPRESSION: Residual opacification in the right upper lobe area. Follow-up advised. Cardiomegaly with cardiac decompensation and pulmonary edema. Pneumonitis canno t be excluded. Clinical correlation and follow-up advised.
--- NOTE | ~2024-08-26 | XR_ITS ---
EXAMINATION: XR chest 1V portable DATE: 08/31/2024 06:31 INDICATION: Pneumonia and pulmonary edema TECHNIQUE: frontal view of the chest was obtained. COMPARISON: Chest radiograph dated 08/30/2024 FINDINGS: Interval improvement in aeration of the right lung with decreased opacities in the upper and lower ernie ng zones. No significant change in cardiac opacities in the left lower lung zone. No pleural effusion or pneumothorax. Cardiomegaly. Calcified mediastinal lymph nodes consistent with old granulomatous d isease. Multilevel instrumented anterior and posterior spinal fusion in the mid to lower cervical spi ne. IMPRESSION: 1. Unchanged opacities in the left lower lung zone and improvement in opacities in the right upper an d lower lung zones most likely related to combination of atelectasis and pneumonia. 2. Cardiomegaly. Reviewed, dictated and finalized at location A. IMPRESSION: 1. Unchanged opacities in the left lower lung zone and improvement in opacities in the right upper and lower lung zones most likely related to combination of atelectasis and pneumonia. 2. Cardiomegaly.
--- NOTE | ~2024-08-26 | CT_ITS ---
CT diagnostic chest wo con Ordering provider: Fanta Nowak MD History: 63 years Male with . sob . Comparison: None. Technique: CT chest without IV contrast.Radiation reduction technique utilized. The dose-length produ ct was 861.43 mGy-cm. FINDINGS: VISUALIZED THORACIC INLET: Normal. MEDIASTINUM: Aorta/coronary arteries: Mild atheromatous disease. Heart/other: The heart is slightly enlarged. Lymph nodes: No mediastinal or hilar adenopathy. Slight narrowing of the distal trachea. Severe narrowing of the main bronchi. LUNGS: Pneumonia seen in the right upper and lower lobe posteriorly. Right moderate pleural effusion. Minimal left pleural effusion with adjacent atelectasis versus pneumonia. No pulmonary nodules or ma sses. No pneumothorax. VISUALIZED UPPER ABDOMEN: Soft tissue density adjacent to the right lobe of the liver measuring 4.5 c m. Ultrasound evaluation advised. Benign calcifications of the spleen. Otherwise, the visualized uppe r abdomen is normal. MUSCULOSKELETAL: Soft tissues: The superficial soft tissues are normal. Bones: Age appropriate degenerative changes of the spine. IMPRESSION: 1. Pneumonia involving the right upper and lower lobe. 2. Bilateral pleural effusion more on the right side with adjacent atelectasis versus pneumonia. 3. Tracheobronchomalacia. 4. Cardiomegaly with congestive haley. Reviewed, dictated and finalized at location A.
--- NOTE | ~2024-08-26 | XR_ITS ---
MODIFIED ESOPHAGRAM HISTORY: Witnessed choking episode TECHNIQUE: Modified barium esophagram was performed on 08/30/2024. I administered fluoroscopy and perf ormed the exam with speech pathologist. Patient was seated for lateral fluoroscopic imaging for gloria stion of thin liquids, pudding, solids and quantified amounts, followed by thin liquids in uncontroll ed amounts. This was recorded on tape. A single fluoroscopic spot image was also recorded. The DAP fo r this procedure was 33.47 Gycm2. The amount of fluoroscopy time used during this procedure was 2.7 m inutes. FINDINGS: Combined instrumented anterior and posterior spinal fusion with anterior plate-screw fixation and adriano ateral vertical derik and lateral mass screw fixation extending from C3 through C7. Oral stage: Adequate function. Pharyngeal stage: Laryngeal penetration without aspiration. Cervical/esophageal stage: Adequate function. IMPRESSION: Pharyngeal dysphagia with laryngeal penetration without aspiration. Please correlate wit h speech pathologist findings and specific feeding recommendations. Reviewed, dictated and finalized at location A. IMPRESSION: Pharyngeal dysphagia with laryngeal penetration without aspiration. Please correlate with speech pathologist findings and specific feeding recomm endations.
--- NOTE | 2024-08-26 05:20 | ADMGEN ---
This patient, Jose Davidson, was admitted to IMU Room 211-01. Patient/family oriented to hospital policies and general routines including ID bracelet, bed and alarms, visiting hours, pain management, procedures, bathroom and other care routines, personal items, smoking policy, room service/diet, and visiting hours. Information on how to activate the Rapid Response Team has been discussed. Patient/Family are encouraged to report perceived risks to care and to ask questions if they do not understand what they are told or what they should do.
--- OUTSIDE RECORDS SUMMARY | 2024-08-26 05:23 | XMS_ITS | Clinical Summary ---
Author Organization [facility] Address [address] [place] [address] Care Team Providers Care Envelope Press Operator Name Role Phone Unavailable Primary Care Provider [...]
--- OUTSIDE RECORDS SUMMARY | 2024-08-26 05:23 | XMS_ITS | Clinical Summary ---
Author Organization [facility] Address [address] [place] [address] Care Team Providers Care Control And Recovery Combat Rescue Name Role Phone Raysa Miguel MD Primary Care Provider [phone] Jonna Moss CIGAR MAKING MACHINE OPERATOR- Unavailable Regan Lam MD Unavailable [phone] Shahid Mansfield MD Unavailable [phone] Allergies Active Allergy Reactions Criticality Noted Date [...] Status Comments Brother Alive Father (Age 54) [place] Maternal Grandfather Maternal Grandmother Mother (Age 67) [...] patient's age to complete this topic Insurance [facility] Care Teams Control And Recovery Combat Rescue Relationship Specialty Start Date End Date Raysa Miguel MD [address] [place] [address] [place] [address] PCP - General FAMILY PRACTICE 04/22/16 Jonna Moss, CIGAR MAKING MACHINE OPERATOR- [address] [place] [address] NURSE PRACTITIONER 04/22/16 Regan Lam MD [address] [place] [address] CARDIOVASCULAR DISEASE 04/22/16 Shahid Mansfield MD [address] [place] [address] ORTHOPAEDIC SURGERY 04/22/16
--- OUTSIDE RECORDS SUMMARY | 2024-08-26 05:23 | XMS_ITS | Encounter Summary ---
Author Organization [facility] Address [facility] [place] [address] Care Team Providers Care Electric Welder Name Role Phone Raysa Miguel MD Primary Care Provider [phone] Jonna Moss [facility]- Unavailable Regan Lam MD Unavailable [phone] Shahid Mansfield MD Unavailable [phone] Encounter Details Date Type Department Care Team (Late st Contact Info) Description 05/31/2021 Abstract [facility]-[address] [place] [address] [place] [address] Abstract, Doc Prevea Social History Tobacco Use [...] medication documented in this encounter Care Teams Electric Welder Relationship Specialty Start Date End Date [place] [address] PCP - General FAMILY PRACTICE 04/22/16 Jonna Moss, ACCOUNTING GENERALIST[place] [address] NURSE PRACTITIONER 04/22/16 [place] [address] CARDIOVASCULAR DISEASE 04/22/16 Shahid Mansfield MD [address] [place] [address] ORTHOPAEDIC SURGERY 04/22/16 documented as of this encounter
--- OUTSIDE RECORDS SUMMARY | 2024-08-26 05:23 | XMS_ITS | Referral Summary ---
Author Organization [place] [address] [place] [address] Care Team Providers Care Supply Crib Attendant Name Role Phone Kel Hope MD Primary Care Provider Encounters Date Type Department Care Team Description 07/29/2024 11:00 AM CDT Ancillary Procedure [facility] Cardiology at [address] [place] [phone] Paroxysmal atrial fibrillation (HCC) 07/29/2024 10:30 AM CDT Office Visit [facility] Cardiology at [address] [place] [phone] Ryan De Los Santos MD Bilateral lower extremity edema (Primary Dx); DANIEL (obstructive sleep apnea); Paroxysmal atrial fibrillation (HCC); Essential hypertension; Mixed hyperlipidemia; Morbid obesity with BMI of 40.0-44.9, adult (HCC); Alcohol abuse; Cardiomyopathy, unspecified type (HCC); Systolic congestive heart failure, unspecified HF chronicity (HCC) 07/26/2024 Telephone [facility] Cardiology [address] [place] [address] [address] [place] [address] Ryan De Los Santos MD 07/10/2024 Telephone [facility] Cardiology [address] [place] [address] [address] [place] [address] Ryan De Los Santos MD 07/04/2024 Orders Only [facility] [place] Health Information Management [address] [place] [address] Scanning, Provider 06/28/2024 3:00 PM CDT Ancillary Procedure [facility] Cardiology at [address] [place] [phone] Atrial fibrillation, unspecified type (HCC); Essential hypertension; Bilateral lower extremity edema 06/27/2024 Telephone [facility] Cardiology [address] [place] [address] Ryan De Los Santos MD 06/19/2024 10:15 AM CDT Office Visit [facility] Cardiology at [address] [place] [address] Ryan De Los Santos MD Essential hypertension (Primary Dx); Atrial fibrillation, unspecified type (HCC); Mixed hyperlipidemia; Morbid obesity with BMI of 40.0-44.9, adult (HCC); Morbid obesity (HCC); Bilateral lower extremity edema; DANIEL (obstructive sleep apnea); Alcohol abuse from Last 3 Months Allergies Active Allergy Reactions Criticality Noted Date Comments Kinsley-3 Fatty Acids Other (See comments) 2024 Indigestion [...] phy Narrative 08/02/2024 3:32 PM CDT AMBULATORY REPAIR CLERK REPORT Patient Name: Yajaira Franz Date of [...] was used to complete this document, therefore, electronic warfare technician variances may occur. Ryan De Los Santos MD, [facility] 08/02/24 Ryan De Los Santos MD CV CARDIAC SERVICES [facility] Final Result * POCT lipid panel (07/29/2024 [...] PM CDT Narrative 06/29/2024 10:46 AM CDT [facility] Cardiology [address] [facility], [address], [place] [address] P:[phone] P:[phone] Echocardiographic Report Patient Name: YAJAIRA FRANZ : [...] Interpretation Site: Exam was interpreted at [facility]. Left Ventricle: Mild concentric left ventricular hypertrophy. [...] minute. Electronically Signed By: Dr. Jomar Ayala [facility] 06/29/2024 10:45:44 AM CDT Procedure Note Jomar Ayala MD - 06/29/2024 [facility] Cardiology [address] [facility], [address], [place] [address] P:[phone] P:[phone] Echocardiographic Report Patient Name: YAJAIRA FRANZ : [...] FINDINGS: Interpretation Site: Exam was interpreted [place] [facility] [place]. Left Ventricle: Mild concentric left ventricular [...] minute. Electronically Signed By: Dr. Jomar Ayala [facility] 06/29/2024 10:45:44 AM CDT Ryan De Los Santos MD CV ECHO PROCEDURES Final Result * ECG 12 lead (06/19/2024 3:35 PM CDT) Ryan De Los Santos MD ECG ORDERABLES Final Res ult from Last 3 Months Insurance [facility] HMO Care Teams Supply Crib Attendant Relationship Specialty Start Date End Date Kel Hope MD [address] [place] [address] PCP - General Internal Medicine 06/07/24
--- OUTSIDE RECORDS SUMMARY | 2024-08-26 05:23 | XMS_ITS | Encounter Summary ---
Author Organization [facility] Address [address] [place] [address] Care Team Providers Care Rn Transitional Care Name Role Phone Kel Hope MD Primary Care Provider Encounter Details Date Type Department Care Team (Late st Contact Info) Description 07/04/2024 Orders Only [facility] [place] Information Management [address] [place] [phone] Scanning, Provider Social History Tobacco Use Types [...] on filedocumented in this encounter Care Teams Rn Transitional Care Relationship Specialty Start Date End Date Kel Hope MD [address] [place] [address] PCP - General Internal Medicine 06/07/24 documented as of this encounter
--- OUTSIDE RECORDS SUMMARY | 2024-08-26 05:23 | XMS_ITS | Encounter Summary ---
Author Organization [facility] Address [address] [place] [address] Care Team Providers Care Sample Color Maker Name Role Phone Raysa Miguel MD Primary Care Provider [phone] [facility]- Unavailable Regan Lam MD Unavailable [phone] Shahid Mansfield MD Unavailable [phone] Encounter Details Date Type Department Care Team (Late st Contact Info) Description 05/06/2017 Abstract [facility] [address] [place], [place] [id number] , Generic Conversion, Social History Tobacco Use [...] Rule Out 01/31/2021 01/31/2021 01/31/2021 6:37 PM INVENTORY CONTROL MANAGER COVID-19 Rule Out 05/16/2021 05/16/2021 05/16/2021 6:33 PM CDT documented as of this encounter Care Teams Sample Color Maker Relationship Specialty Start Date End Date Raysa Miguel MD [address] [place] [address] PCP - General FAMILY PRACTICE 04/22/16 Jonna Moss, [facility] [place] [address] NURSE PRACTITIONER 04/22/16 Regan Lam MD [facility] hospital[address] [place] [address] CARDIOVASCULAR DISEASE 04/22/16 Shahid Mansfield MD [address] [place] [id number] ORTHOPAEDIC SURGERY 04/22/16 documented as of this encounter
--- OUTSIDE RECORDS SUMMARY | 2024-08-26 05:23 | XMS_ITS | Clinical Summary ---
Author Organization [facility] [address] [facility] [address] Address [address] [place] [address] Care Team Providers Care Bed Manager Name Role Phone Kel Hope MD Primary Care Provider [phone] Allergies Active Allergy Reactions Criticality Noted Date Comments [place]-3 Fatty Acids Other (See comments) 2024 Indigestion [...] Description 07/29/2024 11:00 AM CDT Ancillary Procedure [facility] at [address] [place] [address] Paroxysmal atrial fibrillation (HCC) 07/29/2024 10:30 AM CDT Office Visit [facility] at [address] [place] [address] Ryan De Los Santos MD Bilateral lower extremity edema (Primary Dx); DANIEL (obstructive sleep apnea); Paroxysmal atrial fibrillation (HCC); Essential hypertension; Mixed hyperlipidemia; Morbid obesity with BMI of 40.0-44.9, adult (HCC); Alcohol abuse; Cardiomyopathy, unspecified type (HCC); Systolic congestive heart failure, unspecified HF chronicity (HCC) 07/26/2024 Telephone [facility] Cardiology [address] [facility] [address] [place] [phone] Ryan De Los Santos MD 07/10/2024 Telephone [facility] Cardiology [address] [facility] [address] [place] [address] Ryan De Los Santos MD 07/04/2024 Orders Only [facility] Health Information Management [address] [place] [id number] Scanning, Provider 06/28/2024 3:00 PM CDT Ancillary Procedure [facility] Cardiology at [address] [place] [address] Atrial fibrillation, unspecified type (HCC); Essential hypertension; Bilateral lower extremity edema 06/27/2024 Telephone [facility] Cardiology [address] [facility] [address] [place] [address] Ryan De Los Santos MD 06/19/2024 10:15 AM CDT Office Visit [facility] Cardiology at [address] [place] [address] Ryan De Los Santos MD [...] phy Narrative 08/02/2024 3:32 PM CDT AMBULATORY [employer] REPORT Patient Name: Yajaira Franz Date of [...] was used to complete this document, therefore, brush loader and handle attacher variances may occur. Ryan De Los Santos MD, [facility] 08/02/24 Ryan De Los Santos MD CV CARDIAC SERVICES PROCE DURES Final Result * POCT lipid panel (07/29/2024 10:25 AM CDT) Pathologist [facility] Cholesterol, POC 174 <200 MG/DL HDL, POC [...] Complete W Doppler/CF (06/28/2024 2:52 PM CDT) [facility] EF Mod BP 45 % CONS SCIMAGE Anatomical Region Laterality Modality Ultrasound 06/28/2024 2:52 PM CDT Narrative 06/29/2024 10:46 AM CDT [facility] Cardiology [address], [address], [place] [address] P:[phone] P:[phone] Echocardiographic Report Patient Name: YAJAIRA FRANZ : [...] FINDINGS: Interpretation Site: Exam was interpreted at [facility]. Left Ventricle: Mild concentric [...] minute. Electronically Signed By: Dr. Jomar Ayala [facility] 06/29/2024 10:45:44 AM CDT Procedure Note Jomar Ayala MD - 06/29/2024 [facility] Cardiology [address], [address], [place] [address] P:[phone] P:[phone] Echocardiographic Report Patient Name: YAJAIRA FRANZ : [...] FINDINGS: Interpretation Site: Exam was interpreted at [facility]. Left Ventricle: Mild concentric [...] minute. Electronically Signed By: Dr. Jomar Ayala [facility] 06/29/2024 10:45:44 AM CDT Ryan De Los Santos MD CV ECHO PROCEDURES Final Result * ECG 12 lead (06/19/2024 3:35 PM CDT) Ryan De Los Santos MD ECG ORDERABLES Final Res ult from Last 3 Months Insurance [employer] H[employer] Care Teams Bed Manager Relationship Specialty Start Date End Date Kel Hope MD [address] [place] [address] PCP - General Internal Medicine 06/07/24
[2024-08-26] MEDS: dilTIAZem 100 MG/100 ML 100 MG/100 ML BAG 15 MG IV CONT ×3 (05:33→17:34)
--- NOTE | 2024-08-26 06:01 | PC.NURSE ---
Pt states he drinks 48 alcohol drinks a week. Visible tremors noted. Last drink 08/25/2024. pt states he is unable to take Ativan knocks me out.
[2024-08-26 06:54] LABS: Hematocrit 29.2 % (42.0-52.0); Hemoglobin 9.6 g/dL (14.0-18.0); Immature Granulocyte Percent A 0.5 % (0-0.5); Lymphocytes Absolute Auto 0.95 K/mm3 (0.9-3.2); Mean Corpuscular HGB Conc 32.9 g/dl (32-36); Mean Corpuscular Hemoglobin 33.7 pg (26-34); Mean Corpuscular Volume 102.5 fl (80-100); Nucleated Red Blood Cells Absolute Auto 0.000 K/mm3 (0.0-0.012); Nucleated Red Blood Cells Perc 0.0 % (0.0-0.2); Platelet Count Result 164 k/mm3 (150-375); Red Blood Count 2.85 M/mm3 (4.6-6.20); White Blood Count 8.0 K/mm3 (4.5-10.0)
[2024-08-26 07:03] LABS: Anion Gap 20 mmol/L (4-12); Blood Urea Nitrogen 23 mg/dL (9-20); Calcium 8.5 mg/dL (8.4-10.2); Carbon Dioxide 20 mmol/L (22-30); Chloride 94 mmol/L (98-107); Estimated CRCL calculation 66 ml/min; Estimated Glomerular Filt Rate 58; Glucose 125 mg/dL (65-110); Magnesium 1.9 mg/dL (1.6-2.3); Potassium 4.8 mmol/L (3.4-5.0); Sodium 134 mmol/L (137-145)
[2024-08-26 07:26] LABS: Troponin I 0.124 ng/mL (0.000-0.034)
[2024-08-26] MEDS: MAGNESIUM OXIDE 400 MG TABLET PO (09:10)
[2024-08-26] MEDS: PANTOPRAZOLE 40 MG TABLET PO ×2 (09:10→16:38)
[2024-08-26] MEDS: FUROSEMIDE 20 MG TABLET PO (09:10)
[2024-08-26] MEDS: OMEGA 3 POLYUNSAT FATTY ACIDS 1 GM CAP 2 GM PO (09:10)
[2024-08-26] MEDS: IRBESARTAN 150 MG TABLET PO (09:11)
[2024-08-26] MEDS: MULTIVITAMINS THERAPEUTIC TAB (*BKC) 1 TABLET PO (09:11)
[2024-08-26] MEDS: chlordiazePOXIDE (*CRX) 25 MG CAPSULE 50 MG PO ×3 (09:47→23:02)
[2024-08-26] MEDS: LORazepam INJ (*CRX) 2 MG/ML VIAL IV PUSH ×2 (09:47→23:02)
[2024-08-26] MEDS: THIAMINE HCL INJ 100 MG, FOLIC ACID INJ 1 MG, MAGNESIUM SULFATE INJ 1 GM, MULTIVITAMINS... 75 MG IVPB (10:46)
--- NOTE | 2024-08-26 10:53 | P.CONCA_ITS ---
Assessment and Plan Assessment and plan (1) Atrial fibrillation with rapid ventricular response: Code(s): I48.91 - Unspecified atrial fibrillation Status: Acute (2) Elevated troponin: Code(s): R79.89 - Other specified abnormal findings of blood chemistry Status: Acute (3) Acute on chronic diastolic heart failure: Code(s): I50.33 - Acute on chronic diastolic (congestive) heart failure Status: Acute Plan AFib with RVR in a patient with known AFib not on anticoagulation due to peptic ulcer disease/recent polyp removal Elevated troponin without chest pain-most likely demand ischemia secondary to tachycardia Elevated D-dimer-CT chest negative for PE Acute on chronic diastolic heart failure-symptoms of shortness of breath, elevated NT pro BNP, mild interstitial edema on chest x-ray Alcohol withdrawal Plan: -Patient has alcohol withdrawal and this could be driving the tachycardia. Continue Cardizem for now for rate control. If rates are not controlled with Cardizem, then will need amiodarone. Will need to start anticoagulation if initiating amiodarone due to risk of stroke with pharmacological cardioversion. However patient is not on anticoagulation due to peptic ulcer disease, recent polyp removal -Recommend GI consult given history of peptic ulcer disease and recent polyp removal. Need to know if safe to give anticoagulation from a GI perspective -Patient will need anticoagulation for his AFib in the fci. Resume anticoagulation with Eliquis if okay per GI. If he is unable to take anticoagulation due to GI issue, then he would be a candidate for left atrial appendage occlusion which can be performed as an outpatient -Management of alcohol withdrawal per primary team -Trend troponin to peak -Check and replace electrolytes to keep potassium greater than 4 and magnesium greater than 2 -Check TSH, free T4 -TTE -Continue home medications aspirin, statin, propranolol at home dose -Continue hydrochlorothiazide, amlodipine, irbesartan at home dose -1 dose of IV Lasix 20 mg -Cardiology will continue to follow History of Present Illness History of Present Illness Consult date/time: 08/26/24 10:53 Reason For Visit: AFib RVR, Acute heart failure Narrative: 63-year-old male with history of AFib not on anticoagulation due to peptic ulcer disease/recent polyp removal here, alcohol abuse, PUD presents with chief complaint shortness of breath and a ground level fall at home. EMS was called and found him to be short of breath and tachycardic and brought him to the ER for further evaluation. Patient is very drowsy at the time of my visit with him and unable to provide much history. Per patient's RN, patient just received Ativan and Librium for alcohol withdrawal. Further history is obtained from the medical record. Telemetry shows AFib with rates ranging from 110s to 150s. Troponin is elevated to 0.106, 0.111, 0.124. Lactate is elevated to 3.3, D- dimer is elevated to 7.3. EKG shows AFib with RVR with rate of 156. CT chest is negative for PE. Cardiology is consulted for further recommendations for AFib with RVR. Workup: D-dimer: 7.3 Lactate: 3.3, 2.7 Troponin: 0.106, 0.111, 0.124 BNP: 438 BUN: 23, creatinine: 1.26 EKG: AFib with RVR, rate 156 Chest x-ray: Mild interstitial edema CT chest: Negative for PE Review of Systems 2 Review of Systems: As per [facility] Past Medical History Medical History Hypermagnesemia Family History Family History Father Acute myocardial infarction Mother Cerebrovascular accident Social History Social History Smoking packs per day: 2 Smoking cigarettes per day: 40.0 Years smoked: 30 Smoking pack-years: 60.00 Smoking status: Former smoker Tobacco type: cigarettes Second hand tobacco smoke exposure: No Smoking end date: 02/20/06 Alcohol intake: current Drinks per week: 48 Substance use: unknown Substance use type: does not use Do You Feel Safe in your Home?: Yes Lack of Transportation: No Lack of Food: Never True Current Housing: I Have Housing Concerned About Future Housing: No Difficulty Paying Gas/Electric Bills: No Difficulty Paying for Meds: No Currently Unemployed: No Education: Trade/Vocational Certificate Difficulty w/ Childcare or Family Care: No Gender identity (if verbalized by the patient): Male Sexual Orientation (if Verbalized by the Patient): Straight or Heterosexual Spiritual care concerns: No Meds Home Medications and Allergies Home Medications ?Medication ?Instructions ?Recorded ?Confirmed ?Type amlodipine 10 mg tablet 10 mg PO DAILY 04/20/22 08/26/24 History hydrochlorothiazide 25 mg tablet 25 mg PO DAILY 04/20/22 08/26/24 History irbesartan 150 mg tablet 150 mg PO DAILY 04/20/22 08/26/24 History aspirin 81 mg tablet,delayed 81 mg PO DAILY 08/26/24 08/26/24 History release (Adult Aspirin Regimen) doxycycline monohydrate 50 mg 50 mg PO DAILY 08/26/24 08/26/24 History capsule furosemide 20 mg tablet 20 mg PO DAILY 08/26/24 08/26/24 History lovastatin 40 mg tablet 40 mg PO HS 08/26/24 08/26/24 History magnesium 200 mg tablet 400 mg PO DAILY 08/26/24 08/26/24 History multivitamin (Daily Multi-Vitamin 1 tablet PO DAILY 08/26/24 08/26/24 History tablet) omega 3-ccx-lfr-fish oil 100 2 cap PO BID 08/26/24 08/26/24 History mg-160 mg-1,000 mg capsule (Fish Oil) pantoprazole 40 mg tablet,delayed 40 mg PO BID 08/26/24 08/26/24 History release propranolol 120 mg capsule,24 120 mg PO HS 08/26/24 08/26/24 History hr,extended release sucralfate 1 gram tablet 1 g PO .with meals and HS 08/26/24 08/26/24 History Allergies Allergy/AdvReac Type Severity Reaction Status Date / Time azithromycin Allergy Unknown Verified 08/26/24 00:59 ezetimibe (From Vytorin) Allergy Unknown Verified 08/26/24 00:59 simvastatin (From Vytorin) Allergy Unknown Verified 08/26/24 00:59 Vital Signs Vital Signs - 24 hr 08/26/24 05:33 08/26/24 05:35 08/26/24 06:00 Temperature 36.5 C Pulse Rate 114 H 125 H 146 H Pulse Rate [Bilateral Radial Palpation] Respiratory Rate 24 H Blood Pressure 109/63 Pulse Oximetry 95 Oxygen Delivery Oxygen Flow Rate Fraction of Inspired Oxygen 08/26/24 06:00 08/26/24 06:06 08/26/24 08:00 Temperature 36.8 C Pulse Rate 135 H 123 H Pulse Rate [Bilateral Radial Palpation] Respiratory Rate 22 H Blood Pressure 109/64 118/68 Pulse Oximetry 95 97 Oxygen Delivery Nasal Cannula Oxygen Flow Rate 4 Fraction of Inspired Oxygen 08/26/24 08:00 08/26/24 08:00 08/26/24 09:00 Temperature Pulse Rate 123 H 123 H Pulse Rate [Bilateral Radial Palpation] Respiratory Rate 22 H Blood Pressure Pulse Oximetry 97 97 Oxygen Delivery Nasal Cannula Nasal Cannula Oxygen Flow Rate 2 4 Fraction of Inspired Oxygen 36 36 08/26/24 09:47 08/26/24 10:00 08/26/24 10:26 Temperature Pulse Rate 123 H 120 H Pulse Rate [Bilateral Radial Palpation] 123 H Respiratory Rate Blood Pressure 121/48 L Pulse Oximetry 95 Oxygen Delivery Oxygen Flow Rate Fraction of Inspired Oxygen Exam 2 Narrative: General: Alert oriented x3, no acute distress Neck: Supple, no JVD Chest: Bilaterally clear to auscultation, no rales or rhonchi Cardiac: S1, S2 +, irregularly irregular rhythm, no murmurs or rubs Extremities: Bilateral lower extremity edema 1+, no skin rash Neurologic: Alert and oriented x3, no focal neurological deficits Results Labs and Meds 08/26/24 06:40 08/26/24 06:40 Lab results: Cardiac Enzymes 08/26/24 Range/Units 06:40 Troponin I 0.124 H* (0.000-0.034) ng/mL CBC 08/26/24 Range/Units 06:40 WBC 8.0 (4.5-10.0) K/mm3 RBC 2.85 L (4.6-6.20) M/mm3 Hgb 9.6 L (14.0-18.0) g/dL Hct 29.2 L (42.0-52.0) % Plt Count 164 (150-375) k/mm3 Lymph # (Auto) 0.95 (0.9-3.2) K/mm3 [place] # (Auto) 0.9 H (0.1-0.6) K/mm3 Eos # (Auto) 0.0 (0-0.3) K/mm3 Baso # (Auto) 0.0 (0.0-0.1) K/mm3 Comprehensive Metabolic Panel 08/26/24 Range/Units 06:40 Sodium 134 L (137-145) mmol/L Potassium 4.8 (3.4-5.0) mmol/L Chloride 94 L (98-107) mmol/L Carbon Dioxide 20 L (22-30) mmol/L BUN 23 H (9-20) mg/dL Creatinine 1.26 (0.7-1.3) mg/dL Glucose 125 H (65-110) mg/dL Calcium 8.5 (8.4-10.2) mg/dL Intake and Output 08/25/24 08/26/24 08/26/24 23:59 07:59 15:59 Intake Total 6.8 0 Balance 6.8 0 Intake: IV 6.8 dilTIAZem 100 MG/100 ML 100 mg 6.8 In 100 ml @ 15 MG/HR 15 mls/hr IV CONT .[id number] [facility] Rx#: [id number] Oral 0 Patient Weight 08/26/24 23:59 Weight 123.3 kg
[2024-08-26] MEDS: DOXYCYCLINE HYCLATE 50 MG CAPSULE PO (12:50)
[2024-08-26] MEDS: SUCRALFATE 1 GM TABLET PO ×3 (12:50→20:47)
[2024-08-26] MEDS: PERFLUTREN LIPID MICROSPHERES 1.5 ML VIAL DILUTED TO 10 ML TOTAL VOLUME IV PUSH (14:30)
--- NOTE | 2024-08-26 14:51 | IVDEFINITY ---
Prior to administration of IV Definity the patient was educated on the risks and benefits of the imaging enhancing agent including potential adverse side effects. The patient verbalized understanding. Allergies were verified. No exclusion criteria were identified and at least one of the following inclusion criteria were met: 1) physician request, 2) patient technically difficult to image (per the [place] [employer] Echocardi[employer] guidelines of two or more segments not discernable within the apical view), or 3) questionable left ventricular function. ?
--- NOTE | 2024-08-26 18:14 | P.HP_ITS ---
H&P: HPI History of Present Illness Date/Time: 08/26/24 18:14 Chief Complaint: Shortness of Breath/Dyspnea Narrative: ER-HPI Narrative: Patient is a 63-year-old male with known AFib and off his Eliquis at this time for peptic ulcer disease /recent polyp removal here with shortness of breath and a ground level fall at home. EMS was called for a lift assist and further found him to be short of breath and tachycardic and brought him to the emergency room for evaluation. Patient was post have a electric cardioversion of his AFib in the near future. patient was seen by cherry cutter suspect patient has demand ischemia due to A. Fib RVR and does not have ACS, however patient in not on any anticoagulation for the A .fib as patient history of PUD, will consult GI for further recommendation. Patient with history daily 6 drinks and last drinks was 2 days ago and currently patient is in withdrawal, patient is given Ativan 2mg IV x1, place the patient on Librium 50mg q6 Ana Cristina, and started the patient on banana beg, to provide thiamin and multiple vitamin, will monitor patient with CIWA protocol. Review of Systems Review of Systems: As per HPI [facility] Past Medical History Medical History Hypermagnesemia Family History Family History Father Acute myocardial infarction Mother Cerebrovascular accident Social History Social History Smoking packs per day: 2 Smoking cigarettes per day: 40.0 Years smoked: 30 Smoking pack-years: 60.00 Smoking status: Former smoker Tobacco type: cigarettes Second hand tobacco smoke exposure: No Smoking end date: 02/20/06 Alcohol intake: current Drinks per week: 48 Substance use: unknown Substance use type: does not use Do You Feel Safe in your Home?: Yes Lack of Transportation: No Lack of Food: Never True Current Housing: I Have Housing Concerned About Future Housing: No Difficulty Paying Gas/Electric Bills: No Difficulty Paying for Meds: No Currently Unemployed: No Education: Trade/Vocational Certificate Difficulty w/ Childcare or Family Care: No Gender identity (if verbalized by the patient): Male Sexual Orientation (if Verbalized by the Patient): Straight or Heterosexual Spiritual care concerns: No Meds Home Medications and Allergies Home Medications ?Medication ?Instructions ?Recorded ?Confirmed ?Type amlodipine 10 mg tablet 10 mg PO DAILY 04/20/22 08/26/24 History hydrochlorothiazide 25 mg tablet 25 mg PO DAILY 04/20/22 08/26/24 History irbesartan 150 mg tablet 150 mg PO DAILY 04/20/22 08/26/24 History aspirin 81 mg tablet,delayed 81 mg PO DAILY 08/26/24 08/26/24 History release (Adult Aspirin Regimen) doxycycline monohydrate 50 mg 50 mg PO DAILY 08/26/24 08/26/24 History capsule furosemide 20 mg tablet 20 mg PO DAILY 08/26/24 08/26/24 History lovastatin 40 mg tablet 40 mg PO HS 08/26/24 08/26/24 History magnesium 200 mg tablet 400 mg PO DAILY 08/26/24 08/26/24 History multivitamin (Daily Multi-Vitamin 1 tablet PO DAILY 08/26/24 08/26/24 History tablet) omega 9-yat-auc-fish oil 100 2 cap PO BID 08/26/24 08/26/24 History mg-160 mg-1,000 mg capsule (Fish Oil) pantoprazole 40 mg tablet,delayed 40 mg PO BID 08/26/24 08/26/24 History release propranolol 120 mg capsule,24 120 mg PO HS 08/26/24 08/26/24 History hr,extended release sucralfate 1 gram tablet 1 g PO .with meals and HS 08/26/24 08/26/24 History Allergies Allergy/AdvReac Type Severity Reaction Status Date / Time azithromycin Allergy Unknown Verified 08/26/24 00:59 ezetimibe (From Vytorin) Allergy Unknown Verified 08/26/24 00:59 simvastatin (From Vytorin) Allergy Unknown Verified 08/26/24 00:59 Vital Signs Vital Signs - 24 hr 08/26/24 05:33 08/26/24 05:35 08/26/24 06:00 Temperature 36.5 C Pulse Rate 114 H 125 H 146 H Pulse Rate [Bilateral Radial Palpation] Respiratory Rate 24 H Blood Pressure 109/63 Pulse Oximetry 95 Oxygen Delivery Oxygen Flow Rate Fraction of Inspired Oxygen 08/26/24 06:00 08/26/24 06:06 08/26/24 08:00 Temperature 36.8 C Pulse Rate 135 H 123 H Pulse Rate [Bilateral Radial Palpation] Respiratory Rate 22 H Blood Pressure 109/64 118/68 Pulse Oximetry 95 97 Oxygen Delivery Nasal Cannula Oxygen Flow Rate 4 Fraction of Inspired Oxygen 08/26/24 08:00 08/26/24 08:00 08/26/24 08:00 Temperature Pulse Rate 123 H 123 H 123 H Pulse Rate [Bilateral Radial Palpation] Respiratory Rate 22 H Blood Pressure 118/68 Pulse Oximetry 97 Oxygen Delivery Nasal Cannula Oxygen Flow Rate 2 Fraction of Inspired Oxygen 36 08/26/24 09:00 08/26/24 09:47 08/26/24 10:00 Temperature Pulse Rate 123 H Pulse Rate [Bilateral Radial Palpation] 123 H Respiratory Rate Blood Pressure Pulse Oximetry 97 Oxygen Delivery Nasal Cannula Oxygen Flow Rate 4 Fraction of Inspired Oxygen 36 08/26/24 10:00 08/26/24 10:26 08/26/24 11:00 Temperature Pulse Rate 120 H 120 H 112 H Pulse Rate [Bilateral Radial Palpation] Respiratory Rate 20 Blood Pressure 121/48 L 121/48 L Pulse Oximetry 95 90 Oxygen Delivery Nasal Cannula Oxygen Flow Rate 2 Fraction of Inspired Oxygen 28 08/26/24 12:00 08/26/24 12:00 08/26/24 12:00 Temperature Pulse Rate 107 H 100 Pulse Rate [Bilateral Radial Palpation] 100 Respiratory Rate 16 Blood Pressure Pulse Oximetry 100 Oxygen Delivery Nasal Cannula Oxygen Flow Rate 2 Fraction of Inspired Oxygen 28 08/26/24 12:13 08/26/24 12:13 08/26/24 12:43 Temperature 36.8 C Pulse Rate 100 100 107 H Pulse Rate [Bilateral Radial Palpation] Respiratory Rate 16 Blood Pressure 91/41 L 91/41 L 91/41 L Pulse Oximetry 100 Oxygen Delivery Oxygen Flow Rate Fraction of Inspired Oxygen 08/26/24 14:00 08/26/24 14:21 08/26/24 16:00 Temperature Pulse Rate 107 H 108 H 100 Pulse Rate [Bilateral Radial Palpation] Respiratory Rate Blood Pressure 102/41 L 102/41 L 114/53 L Pulse Oximetry Oxygen Delivery Oxygen Flow Rate Fraction of Inspired Oxygen 08/26/24 16:36 08/26/24 17:34 08/26/24 17:34 Temperature 36.6 C Pulse Rate 100 112 H 112 H Pulse Rate [Bilateral Radial Palpation] Respiratory Rate 20 Blood Pressure 114/53 L Pulse Oximetry 93 Oxygen Delivery Oxygen Flow Rate Fraction of Inspired Oxygen Exam Narrative: Morbidly obese Patient is comfortable, NAD HEENT: eyes are clear and none icteric LUNGS: Irregularly irregular tachy HEART: RR S1S2 ABD: BS+, Soft and nontender Lower extremities: no edema SKIN: nonjaundiced Neuro: grossly intact. H&P: Results Labs Labs: Short CBC 08/26/24 Range/Units 06:40 WBC 8.0 (4.5-10.0) K/mm3 Hgb 9.6 L (14.0-18.0) g/dL Hct 29.2 L (42.0-52.0) % Plt Count 164 (150-375) k/mm3 BMP 08/26/24 06:40 Sodium 134 L Potassium 4.8 Chloride 94 L Carbon Dioxide 20 L BUN 23 H Creatinine 1.26 Glucose 125 H Calcium 8.5 Cardiac Enzymes 08/26/24 Range/Units 06:40 Troponin I 0.124 H* (0.000-0.034) ng/mL Assessment and Plan Assessment and plan (1) Acute on chronic diastolic heart failure: Code(s): I50.33 - Acute on chronic diastolic (congestive) heart failure Status: Acute (2) Elevated troponin: Code(s): R79.89 - Other specified abnormal findings of blood chemistry Status: Acute (3) Demand ischemia: Code(s): I24.89 - Other forms of acute ischemic heart disease Status: Acute (4) Atrial fibrillation with rapid ventricular response: Code(s): I48.91 - Unspecified atrial fibrillation Status: Acute (5) CHF (congestive heart failure): Qualifiers: Heart failure chronicity: acute Heart failure type: unspecified Qualified Code(s): I50.9 - Heart failure, unspecified Code(s): I50.9 - Heart failure, unspecified Status: Acute (6) Alcohol abuse: Code(s): F10.10 - Alcohol abuse, uncomplicated Status: Acute Plan ER-HPI Narrative: Patient is a 63-year-old male with known AFib and off his Eliquis at this time for peptic ulcer disease /recent polyp removal here with shortness of breath and a ground level fall at home. EMS was called for a lift assist and further found him to be short of breath and tachycardic and brought him to the emergency room for evaluation. Patient was post have a electric cardioversion of his AFib in the near future. patient was seen by cherry cutter suspect patient has demand ischemia due to A. Fib RVR and does not have ACS, however patient in not on any anticoagulation for the A .fib as patient history of PUD, will consult GI for further recommendation. Patient with history daily 6 drinks and last drinks was 2 days ago and currently patient is in withdrawal, patient is given Ativan 2mg IV x1, place the patient on Librium 50mg q6 Ana Cristina, and started the patient on banana beg, to provide thiamin and multiple vitamin, will monitor patient with CIWA protocol. Quality VTE Prophylaxis VTE prophylaxis: mechanical ordered Hospitalist MIPS Advance Care Plan The patient's Advanced Care plan is not present because:: Patient doesn't want to name surrogate or provider advance care plan Medication Reconciliation The patient is not eligible for med reconciliation; the patient is in a emergent medical situation where delaying treatment would jeopardize the patients health.: Yes
[2024-08-26 21:39] LABS: Troponin I 0.250 ng/mL (0.000-0.034)
[2024-08-26] MEDS: PROPRANOLOL HCL 60 MG CAPSULE CR 120 MG PO (23:01)
[2024-08-26] MEDS: LOVASTATIN 20 MG TABLET 40 MG PO (23:01)
[2024-08-27] VITALS (26 sets, daily range): BP systolic 103–128; BP diastolic 45–76; PULSE 60–109; RESP 17–30; TEMP 36.6–37.2; O2SAT 90–98
[2024-08-27] MEDS: dilTIAZem 100 MG/100 ML 100 MG/100 ML BAG 15 MG IV CONT ×2 (00:15→06:49)
[2024-08-27] MEDS: LORazepam INJ (*CRX) 2 MG/ML VIAL IV PUSH ×2 (02:58→10:08)
[2024-08-27 04:46] LABS: Hematocrit 28.0 % (42.0-52.0); Hemoglobin 8.8 g/dL (14.0-18.0); Mean Corpuscular HGB Conc 31.4 g/dl (32-36); Mean Corpuscular Hemoglobin 32.8 pg (26-34); Mean Corpuscular Volume 104.5 fl (80-100); Platelet Count Result 125 k/mm3 (150-375); Red Blood Count 2.68 M/mm3 (4.6-6.20); White Blood Count 7.6 K/mm3 (4.5-10.0)
[2024-08-27 05:03] LABS: Anion Gap 18 mmol/L (4-12); Blood Urea Nitrogen 27 mg/dL (9-20); Calcium 8.6 mg/dL (8.4-10.2); Carbon Dioxide 20 mmol/L (22-30); Chloride 94 mmol/L (98-107); Estimated CRCL calculation 31 ml/min; Estimated Glomerular Filt Rate 23; Glucose 97 mg/dL (65-110); Magnesium 2.3 mg/dL (1.6-2.3); Potassium 4.8 mmol/L (3.4-5.0); Sodium 132 mmol/L (137-145)
[2024-08-27] MEDS: SUCRALFATE 1 GM TABLET PO ×2 (06:42→12:30)
[2024-08-27] MEDS: chlordiazePOXIDE (*CRX) 25 MG CAPSULE 50 MG PO (06:42)
--- NOTE | 2024-08-27 07:04 | P.CONGI_ITS ---
Assessment and Plan Assessment and plan (1) Alcohol abuse: Code(s): F10.10 - Alcohol abuse, uncomplicated Status: Acute Assessment and Plan: It appears the patient had a colonic polyp removed two weeks prior to admission. If this is confirmed by reviewing records from the previous hospitalization, the concern for post-polypectomy GI bleeding from anticoagulation would be non significant. Nevertheless, the decision to initiate or resume anticoagulation must carefully weigh the risk-benefit profile, especially in light of his recent ground-level fall attributed to alcohol withdrawal, which raises the potential for potential intracranial hemorrhage. Additionally, a review of his past medical records is essential to determine the exact nature and chronicity of his peptic ulcer disease; Knowing if there was a recent bleeding vs. a remote history would make a difference in regards to anticoagulation decision making by cardiology. GI Consult Note Consult date/time: 08/27/24 07:04 Reason for consult: Alcohol withdrawal-history of peptic ulcer disease -history of colonic polypectomy HPI: Mr. Jose Davidson, a 63-year-old male, presented after a ground-level fall and was subsequently diagnosed with atrial fibrillation with rapid ventricular response exhibiting heart rates between 110-150 bpm. He reports having been on anticoagulation, which was discontinued two weeks prior following a polypectomy performed during an outside colonoscopy. He also described a history of peptic ulcer disease. However, his ability to provide accurate information is currently impaired by severe alcohol withdrawal symptoms including significant tremors. Cardiology consultation has identified mild interstitial pulmonary edema, consistent with underlying diastolic dysfunction. Review of Systems 2 Review of Systems: All systems reviewed & are unremarkable except as noted in HPI and below PMFSH Past Medical History Medical History Hypermagnesemia Family History Family History Father Acute myocardial infarction Mother Cerebrovascular accident Social History Social History Smoking packs per day: 2 Smoking cigarettes per day: 40.0 Years smoked: 30 Smoking pack-years: 60.00 Smoking status: Former smoker Tobacco type: cigarettes Second hand tobacco smoke exposure: No Smoking end date: 02/20/06 Alcohol intake: current Drinks per week: 48 Substance use: unknown Substance use type: does not use Do You Feel Safe in your Home?: Yes Lack of Transportation: No Lack of Food: Never True Current Housing: I Have Housing Concerned About Future Housing: No Difficulty Paying Gas/Electric Bills: No Difficulty Paying for Meds: No Currently Unemployed: No Education: Trade/Vocational Certificate Difficulty w/ Childcare or Family Care: No Gender identity (if verbalized by the patient): Male Sexual Orientation (if Verbalized by the Patient): Straight or Heterosexual Spiritual care concerns: No Meds Home Medications and Allergies Home Medications ?Medication ?Instructions ?Recorded ?Confirmed ?Type amlodipine 10 mg tablet 10 mg PO DAILY 04/20/22 08/26/24 History hydrochlorothiazide 25 mg tablet 25 mg PO DAILY 04/20/22 08/26/24 History irbesartan 150 mg tablet 150 mg PO DAILY 04/20/22 08/26/24 History aspirin 81 mg tablet,delayed 81 mg PO DAILY 08/26/24 08/26/24 History release (Adult Aspirin Regimen) doxycycline monohydrate 50 mg 50 mg PO DAILY 08/26/24 08/26/24 History capsule furosemide 20 mg tablet 20 mg PO DAILY 08/26/24 08/26/24 History lovastatin 40 mg tablet 40 mg PO HS 08/26/24 08/26/24 History magnesium 200 mg tablet 400 mg PO DAILY 08/26/24 08/26/24 History multivitamin (Daily Multi-Vitamin 1 tablet PO DAILY 08/26/24 08/26/24 History tablet) omega 5-zos-sbz-fish oil 100 2 cap PO BID 08/26/24 08/26/24 History mg-160 mg-1,000 mg capsule (Fish Oil) pantoprazole 40 mg tablet,delayed 40 mg PO BID 08/26/24 08/26/24 History release propranolol 120 mg capsule,24 120 mg PO HS 08/26/24 08/26/24 History hr,extended release sucralfate 1 gram tablet 1 g PO .with meals and HS 08/26/24 08/26/24 History Allergies Allergy/AdvReac Type Severity Reaction Status Date / Time azithromycin Allergy Unknown Verified 08/26/24 00:59 ezetimibe (From Vytorin) Allergy Unknown Verified 08/26/24 00:59 simvastatin (From Vytorin) Allergy Unknown Verified 08/26/24 00:59 Vital Signs Vital Signs - 24 hr 08/26/24 08:00 08/26/24 08:00 08/26/24 08:00 Temperature 98.3 F Pulse Rate 123 H 123 H 123 H Pulse Rate [Bilateral Radial Palpation] Respiratory Rate 22 H 22 H Blood Pressure 118/68 Pulse Oximetry 97 97 Oxygen Delivery Nasal Cannula Oxygen Flow Rate 2 Fraction of Inspired Oxygen 36 08/26/24 08:00 08/26/24 09:00 08/26/24 09:47 Temperature Pulse Rate 123 H Pulse Rate [Bilateral Radial Palpation] 123 H Respiratory Rate Blood Pressure 118/68 Pulse Oximetry 97 Oxygen Delivery Nasal Cannula Oxygen Flow Rate 4 Fraction of Inspired Oxygen 36 08/26/24 10:00 08/26/24 10:00 08/26/24 10:26 Temperature Pulse Rate 123 H 120 H 120 H Pulse Rate [Bilateral Radial Palpation] Respiratory Rate Blood Pressure 121/48 L 121/48 L Pulse Oximetry 95 Oxygen Delivery Oxygen Flow Rate Fraction of Inspired Oxygen 08/26/24 11:00 08/26/24 12:00 08/26/24 12:00 Temperature Pulse Rate 112 H 107 H Pulse Rate [Bilateral Radial Palpation] 100 Respiratory Rate 20 16 Blood Pressure Pulse Oximetry 90 100 Oxygen Delivery Nasal Cannula Nasal Cannula Oxygen Flow Rate 2 2 Fraction of Inspired Oxygen 28 28 08/26/24 12:00 08/26/24 12:13 08/26/24 12:13 Temperature Pulse Rate 100 100 100 Pulse Rate [Bilateral Radial Palpation] Respiratory Rate Blood Pressure 91/41 L 91/41 L Pulse Oximetry Oxygen Delivery Oxygen Flow Rate Fraction of Inspired Oxygen 08/26/24 12:43 08/26/24 14:00 08/26/24 14:00 Temperature 98.3 F Pulse Rate 107 H 107 H 101 H Pulse Rate [Bilateral Radial Palpation] Respiratory Rate 16 Blood Pressure 91/41 L 102/41 L Pulse Oximetry 100 Oxygen Delivery Oxygen Flow Rate Fraction of Inspired Oxygen 08/26/24 14:21 08/26/24 16:00 08/26/24 16:00 Temperature Pulse Rate 108 H 100 103 H Pulse Rate [Bilateral Radial Palpation] Respiratory Rate Blood Pressure 102/41 L 114/53 L Pulse Oximetry Oxygen Delivery Oxygen Flow Rate Fraction of Inspired Oxygen 08/26/24 16:00 08/26/24 16:00 08/26/24 16:36 Temperature 97.9 F Pulse Rate 112 H 100 Pulse Rate [Bilateral Radial Palpation] 112 H Respiratory Rate 20 20 Blood Pressure 114/53 L 114/53 L Pulse Oximetry 93 93 Oxygen Delivery Nasal Cannula Oxygen Flow Rate 2 Fraction of Inspired Oxygen 28 08/26/24 17:34 08/26/24 17:34 08/26/24 18:00 Temperature Pulse Rate 112 H 112 H 123 H Pulse Rate [Bilateral Radial Palpation] Respiratory Rate Blood Pressure Pulse Oximetry Oxygen Delivery Oxygen Flow Rate Fraction of Inspired Oxygen 08/26/24 19:02 08/26/24 20:00 08/26/24 20:00 Temperature Pulse Rate 117 H Pulse Rate [Bilateral Radial Palpation] 119 H Respiratory Rate Blood Pressure 127/58 L Pulse Oximetry 93 Oxygen Delivery Nasal Cannula Oxygen Flow Rate 2 Fraction of Inspired Oxygen 08/26/24 20:00 08/26/24 20:00 08/26/24 21:00 Temperature Pulse Rate 115 H 109 H 115 H Pulse Rate [Bilateral Radial Palpation] Respiratory Rate Blood Pressure 146/65 H Pulse Oximetry 90 Oxygen Delivery Oxygen Flow Rate Fraction of Inspired Oxygen 08/26/24 22:00 08/26/24 22:00 08/26/24 23:00 Temperature 98.4 F Pulse Rate 123 H 123 H 120 H Pulse Rate [Bilateral Radial Palpation] Respiratory Rate 17 Blood Pressure 127/64 Pulse Oximetry 94 Oxygen Delivery Oxygen Flow Rate Fraction of Inspired Oxygen 08/26/24 23:01 08/26/24 23:08 08/26/24 23:22 Temperature Pulse Rate 110 H Pulse Rate [Bilateral Radial Palpation] 110 H Respiratory Rate Blood Pressure Pulse Oximetry 93 Oxygen Delivery Nasal Cannula Oxygen Flow Rate 2 Fraction of Inspired Oxygen 28 08/26/24 23:22 08/27/24 00:00 08/27/24 00:14 Temperature Pulse Rate 109 H 109 H Pulse Rate [Bilateral Radial Palpation] Respiratory Rate Blood Pressure Pulse Oximetry 93 Oxygen Delivery Nasal Cannula Oxygen Flow Rate 2 Fraction of Inspired Oxygen 08/27/24 00:15 08/27/24 01:00 08/27/24 02:00 Temperature Pulse Rate 109 H 80 81 Pulse Rate [Bilateral Radial Palpation] Respiratory Rate 17 Blood Pressure 125/60 Pulse Oximetry 93 Oxygen Delivery Oxygen Flow Rate Fraction of Inspired Oxygen 08/27/24 02:00 08/27/24 03:00 08/27/24 04:00 Temperature 98.4 F Pulse Rate 91 78 Pulse Rate [Bilateral Radial Palpation] 75 Respiratory Rate 17 Blood Pressure 113/59 L Pulse Oximetry 93 Oxygen Delivery Oxygen Flow Rate Fraction of Inspired Oxygen 08/27/24 04:00 08/27/24 04:00 08/27/24 04:00 Temperature Pulse Rate 80 80 Pulse Rate [Bilateral Radial Palpation] Respiratory Rate Blood Pressure Pulse Oximetry 93 Oxygen Delivery Nasal Cannula Oxygen Flow Rate 2 Fraction of Inspired Oxygen 08/27/24 05:00 08/27/24 06:00 08/27/24 06:00 Temperature 98.4 F Pulse Rate 89 80 76 Pulse Rate [Bilateral Radial Palpation] Respiratory Rate 17 Blood Pressure 128/67 Pulse Oximetry 94 Oxygen Delivery Oxygen Flow Rate Fraction of Inspired Oxygen 08/27/24 06:49 08/27/24 06:49 Temperature Pulse Rate 76 76 Pulse Rate [Bilateral Radial Palpation] Respiratory Rate Blood Pressure Pulse Oximetry Oxygen Delivery Oxygen Flow Rate Fraction of Inspired Oxygen Exam 2 Narrative: At the moment of the interview the patient is unable to give information, due to extreme tremor and intelligible speech. He was not cooperative for physical examination which was deferred. Results Labs 08/27/24 04:09 08/27/24 04:09 Labs: Short CBC 08/27/24 Range/Units 04:09 WBC 7.6 (4.5-10.0) K/mm3 Hgb 8.8 L (14.0-18.0) g/dL Hct 28.0 L (42.0-52.0) % Plt Count 125 L (150-375) k/mm3 BMP 08/27/24 04:09 Sodium 132 L Potassium 4.8 Chloride 94 L Carbon Dioxide 20 L BUN 27 H Creatinine 2.82 H Glucose 97 Calcium 8.6 Cardiac Enzymes 08/26/24 08/26/24 Range/Units 06:40 20:57 Troponin I 0.124 H* 0.250 H* (0.000-0.034) ng/mL
[2024-08-27] MEDS: IRBESARTAN 150 MG TABLET PO (08:47)
[2024-08-27] MEDS: MAGNESIUM OXIDE 400 MG TABLET PO (08:47)
[2024-08-27] MEDS: MULTIVITAMINS THERAPEUTIC TAB (*BKC) 1 TABLET PO (08:48)
[2024-08-27] MEDS: FUROSEMIDE 20 MG TABLET PO (08:48)
[2024-08-27] MEDS: PANTOPRAZOLE 40 MG TABLET PO (08:48)
[2024-08-27] MEDS: THIAMINE HCL INJ 100 MG, FOLIC ACID INJ 1 MG, MAGNESIUM SULFATE INJ 1 GM, MULTIVITAMINS... 75 MG IVPB (09:42)
--- NOTE | 2024-08-27 09:58 | PM.PNCARD ---
Progress Note: A&P Assessment and Plan (1) Atrial fibrillation with rapid ventricular response: Code(s): I48.91 - Unspecified atrial fibrillation Status: Inactive (2) Acute on chronic diastolic heart failure: Code(s): I50.33 - Acute on chronic diastolic (congestive) heart failure Status: Acute (3) Alcohol abuse: Code(s): F10.10 - Alcohol abuse, uncomplicated Status: Acute Plan -AFib with RVR; history of paroxysmal nonvalvular AFib; not on anticoagulation due to peptic ulcer disease/recent polyp removal, also has risk of fall -Diastolic dysfunction, normal LVEF of 60-65% -Elevated troponin without chest pain-most likely demand ischemia secondary to tachycardia -Acute on chronic diastolic heart failure-symptoms of shortness of breath, elevated NT pro BNP, mild interstitial edema on chest x-ray -Alcohol withdrawal-on alcohol withdrawal protocol Plan: -patient remains in AFib but rates are better controlled in the 70s with Cardizem drip. Switch to p.o. Cardizem 90 mg q.8 hours and wean off Cardizem drip. Can discharge on LA Cardizem 240mg PO daily -he needs anticoagulation for AFib. However, given peptic ulcer disease, recent polyp removal, high risk for fall (fell multiple times in the past- alcohol abuse) and ICH, risks of anticoagulation outweigh benefits. Recommend outpatient consult for left atrial appendage occlusion -Management of alcohol withdrawal per primary team -Trend troponin to peak -Check and replace electrolytes to keep potassium greater than 4 and magnesium greater than 2 -Check TSH, free T4 -Continue home medications aspirin, statin, propranolol at home dose -Continue hydrochlorothiazide, amlodipine, irbesartan at home dose -Lasix 20 mg p.o. daily Subjective Date/time seen: 08/27/24 09:58 Interval history: Reason for encounter: AFib with RVR; known history of AFib not currently on anticoagulation due to peptic ulcer disease, recent removal of polyp, risk of falls History: Review of Systems Cardiovascular: Comments: As mentioned in the HPI Respiratory: Comments: As mentioned in the HPI Exam Narrative: General: Alert oriented x3, no acute distress Neck: Supple, JVD + Chest: Bilaterally clear to auscultation, no rales or rhonchi Cardiac: S1, S2 +, irregularly irregular rhythm, no murmurs or rubs Extremities: Bilateral lower extremity edema 1+, no skin rash Neurologic: Alert and oriented x3, no focal neurological deficits Objective Data Vital Signs Vital Signs: Vital Signs - 24 hr 08/26/24 10:00 08/26/24 10:00 08/26/24 10:26 Temperature Pulse Rate 123 H 120 H 120 H Pulse Rate [Bilateral Radial Palpation] Respiratory Rate Blood Pressure 121/48 L 121/48 L Pulse Oximetry 95 Oxygen Delivery Oxygen Flow Rate Fraction of Inspired Oxygen 08/26/24 11:00 08/26/24 12:00 08/26/24 12:00 Temperature Pulse Rate 112 H 107 H Pulse Rate [Bilateral Radial Palpation] 100 Respiratory Rate 20 16 Blood Pressure Pulse Oximetry 90 100 Oxygen Delivery Nasal Cannula Nasal Cannula Oxygen Flow Rate 2 2 Fraction of Inspired Oxygen 28 28 08/26/24 12:00 08/26/24 12:13 08/26/24 12:13 Temperature Pulse Rate 100 100 100 Pulse Rate [Bilateral Radial Palpation] Respiratory Rate Blood Pressure 91/41 L 91/41 L Pulse Oximetry Oxygen Delivery Oxygen Flow Rate Fraction of Inspired Oxygen 08/26/24 12:43 08/26/24 14:00 08/26/24 14:00 Temperature 36.8 C Pulse Rate 107 H 107 H 101 H Pulse Rate [Bilateral Radial Palpation] Respiratory Rate 16 Blood Pressure 91/41 L 102/41 L Pulse Oximetry 100 Oxygen Delivery Oxygen Flow Rate Fraction of Inspired Oxygen 08/26/24 14:21 08/26/24 16:00 08/26/24 16:00 Temperature Pulse Rate 108 H 100 103 H Pulse Rate [Bilateral Radial Palpation] Respiratory Rate Blood Pressure 102/41 L 114/53 L Pulse Oximetry Oxygen Delivery Oxygen Flow Rate Fraction of Inspired Oxygen 08/26/24 16:00 08/26/24 16:00 08/26/24 16:36 Temperature 36.6 C Pulse Rate 112 H 100 Pulse Rate [Bilateral Radial Palpation] 112 H Respiratory Rate 20 20 Blood Pressure 114/53 L 114/53 L Pulse Oximetry 93 93 Oxygen Delivery Nasal Cannula Oxygen Flow Rate 2 Fraction of Inspired Oxygen 28 08/26/24 17:34 08/26/24 17:34 08/26/24 18:00 Temperature Pulse Rate 112 H 112 H 123 H Pulse Rate [Bilateral Radial Palpation] Respiratory Rate Blood Pressure Pulse Oximetry Oxygen Delivery Oxygen Flow Rate Fraction of Inspired Oxygen 08/26/24 19:02 08/26/24 20:00 08/26/24 20:00 Temperature Pulse Rate 117 H Pulse Rate [Bilateral Radial Palpation] 119 H Respiratory Rate Blood Pressure 127/58 L Pulse Oximetry 93 Oxygen Delivery Nasal Cannula Oxygen Flow Rate 2 Fraction of Inspired Oxygen 08/26/24 20:00 08/26/24 20:00 08/26/24 21:00 Temperature Pulse Rate 115 H 109 H 115 H Pulse Rate [Bilateral Radial Palpation] Respiratory Rate Blood Pressure 146/65 H Pulse Oximetry 90 Oxygen Delivery Oxygen Flow Rate Fraction of Inspired Oxygen 08/26/24 22:00 08/26/24 22:00 08/26/24 23:00 Temperature 36.9 C Pulse Rate 123 H 123 H 120 H Pulse Rate [Bilateral Radial Palpation] Respiratory Rate 17 Blood Pressure 127/64 Pulse Oximetry 94 Oxygen Delivery Oxygen Flow Rate Fraction of Inspired Oxygen 08/26/24 23:01 08/26/24 23:08 08/26/24 23:22 Temperature Pulse Rate 110 H Pulse Rate [Bilateral Radial Palpation] 110 H Respiratory Rate Blood Pressure Pulse Oximetry 93 Oxygen Delivery Nasal Cannula Oxygen Flow Rate 2 Fraction of Inspired Oxygen 28 08/26/24 23:22 08/27/24 00:00 08/27/24 00:14 Temperature Pulse Rate 109 H 109 H Pulse Rate [Bilateral Radial Palpation] Respiratory Rate Blood Pressure Pulse Oximetry 93 Oxygen Delivery Nasal Cannula Oxygen Flow Rate 2 Fraction of Inspired Oxygen 08/27/24 00:15 08/27/24 01:00 08/27/24 02:00 Temperature Pulse Rate 109 H 80 81 Pulse Rate [Bilateral Radial Palpation] Respiratory Rate 17 Blood Pressure 125/60 Pulse Oximetry 93 Oxygen Delivery Oxygen Flow Rate Fraction of Inspired Oxygen 08/27/24 02:00 08/27/24 03:00 08/27/24 04:00 Temperature 36.9 C Pulse Rate 91 78 Pulse Rate [Bilateral Radial Palpation] 75 Respiratory Rate 17 Blood Pressure 113/59 L Pulse Oximetry 93 Oxygen Delivery Oxygen Flow Rate Fraction of Inspired Oxygen 08/27/24 04:00 08/27/24 04:00 08/27/24 04:00 Temperature Pulse Rate 80 80 Pulse Rate [Bilateral Radial Palpation] Respiratory Rate Blood Pressure Pulse Oximetry 93 Oxygen Delivery Nasal Cannula Oxygen Flow Rate 2 Fraction of Inspired Oxygen 08/27/24 05:00 08/27/24 06:00 08/27/24 06:00 Temperature 36.9 C Pulse Rate 89 80 76 Pulse Rate [Bilateral Radial Palpation] Respiratory Rate 17 Blood Pressure 128/67 Pulse Oximetry 94 Oxygen Delivery Oxygen Flow Rate Fraction of Inspired Oxygen 08/27/24 06:49 08/27/24 06:49 08/27/24 07:52 Temperature 37.2 C Pulse Rate 76 76 86 Pulse Rate [Bilateral Radial Palpation] Respiratory Rate 18 Blood Pressure 119/72 Pulse Oximetry 94 Oxygen Delivery Oxygen Flow Rate Fraction of Inspired Oxygen 08/27/24 08:32 Temperature Pulse Rate Pulse Rate [Bilateral Radial Palpation] Respiratory Rate Blood Pressure Pulse Oximetry 91 Oxygen Delivery Nasal Cannula Oxygen Flow Rate 2 Fraction of Inspired Oxygen Intake/Output Intake/Output: Intake & Output 08/24/24 08/25/24 08/26/24 08/27/24 23:59 23:59 23:59 23:59 Intake Total 246.7 1263.3 Output Total 2501 Balance 246.7 -1237.7 Meds/Results Medications: Active Medications Generic Name Dose Route Start Last Admin Trade Name Freq PRN Reason Stop Dose Admin Acetaminophen 650 mg 08/26/24 06:26 Acetaminophen 325 Mg Tablet PO Q4H PRN Mild Pain (1-3) or Fever Al Hydrox/Mg Hydrox/Simethicone 30 ml 08/26/24 06:26 Mag Hydrox/Al Hydrox/Simeth 30 Ml Udc PO QID PRN Dyspepsia Amlodipine Besylate 10 mg 08/26/24 09:00 08/27/24 08:47 Amlodipine Besylate 10 Mg Tablet PO 10 mg DAILY PA Administration Bisacodyl 5 mg 08/26/24 06:26 Bisacodyl 5 Mg Tablet Ec PO DAILY PRN Constipation Chlordiazepoxide HCl 25 mg 08/28/24 09:00 Chlordiazepoxide (*Crx) 25 Mg Capsule PO 08/29/24 09:00 Q12HR PA Chlordiazepoxide HCl 50 mg 08/26/24 09:35 08/27/24 06:42 Chlordiazepoxide (*Crx) 25 Mg Capsule PO 08/28/24 09:00 50 mg Q6HR PA Administration Diltiazem HCl 80 mg 08/27/24 13:00 Diltiazem Hcl 30 Mg Tablet PO TID PA Doxycycline Hyclate 50 mg 08/26/24 11:00 08/26/24 12:50 Doxycycline Hyclate 50 Mg Capsule PO 50 mg Q24H PA Administration Fish Oil 2 gm 08/26/24 09:00 08/27/24 08:48 [place] 3 Polyunsat Fatty Acids 1 Gm Cap PO Not Given BID PA Furosemide 20 mg 08/26/24 09:00 08/27/24 08:48 Furosemide 20 Mg Tablet PO 20 mg DAILY PA Administration Hydrochlorothiazide 25 mg 08/26/24 09:00 08/27/24 08:48 Hydrochlorothiazide 25 Mg Tablet PO 25 mg DAILY PA Administration Thiamine HCl 100 mg/ Folic 1,013.2 mls @ 75 mls/hr 08/26/24 10:00 08/27/24 09:42 Acid 1 mg/ Magnesium Sulfate 1 IVPB 75 mls/hr gm/ Multivitamins 5 ml/ Q24H PA Administration Multivitamins 5 ml/ Sodium Chloride Sodium Chloride 1,000 mls @ 100 mls/hr 08/27/24 08:55 Normal Saline Iv IV CONT .Q10H PA Irbesartan 150 mg 08/26/24 09:00 08/27/24 08:47 Irbesartan 150 Mg Tablet PO 150 mg DAILY PA Administration Lorazepam 2 mg 08/26/24 21:53 Lorazepam Inj (*Crx) 2 Mg/Ml Vial IV PUSH Q2H PRN CIWA > 15 Lorazepam 2 mg 08/26/24 21:53 08/27/24 02:58 Lorazepam Inj (*Crx) 2 Mg/Ml Vial IV PUSH 2 mg Q4H PRN Administration CIWA 8-15 Lovastatin 40 mg 08/26/24 21:00 08/26/24 23:01 Lovastatin 20 Mg Tablet PO 40 mg HS PA Administration Magnesium Oxide 400 mg 08/26/24 09:00 08/27/24 08:47 Magnesium Oxide 400 Mg Tablet PO 400 mg DAILY PA Administration Multivitamins Therapeutic 1 tablet 08/26/24 09:00 08/27/24 08:48 Multivitamins Therapeutic Tab (*Bkc) PO 1 tablet DAILY PA Administration Pantoprazole Sodium 40 mg 08/26/24 09:00 08/27/24 08:48 Pantoprazole 40 Mg Tablet PO 40 mg BID PA Administration Propranolol HCl 120 mg 08/26/24 21:00 08/26/24 23:01 Propranolol Hcl 60 Mg Capsule Cr PO 120 mg HS PA Administration Sucralfate 1 gm 08/26/24 11:30 08/27/24 06:42 Sucralfate 1 Gm Tablet PO 1 gm ACHS PA Administration Labs Labs: Laboratory Results - last 24 hr 08/26/24 08/27/24 08/27/24 20:57 00:20 04:09 WBC 7.6 RBC 2.68 L Hgb 8.8 L Hct 28.0 L MCV 104.5 H MCH 32.8 MCHC 31.4 L RDW 14.4 Plt Count 125 L MPV 9.6 Sodium 132 L Potassium 4.8 Chloride 94 L Carbon Dioxide 20 L Anion Gap 18 H BUN 27 H Creatinine 2.82 H Estim Creat Clear Calc 31 Estimated GFR 23 L Glucose 97 POC Capillary Glucose 98 Calcium 8.6 Magnesium 2.3 Troponin I 0.250 H* Imaging Radiologist's impression: TTE: Normal LVEF of 60-65%, diastolic dysfunction. No significant valvular pathology. Mild pulmonary hypertension with PASP of 37 mm Hg.
[2024-08-27] MEDS: dilTIAZem HCL TAB 30 MG, dilTIAZem HCL TAB 60 MG 90 MG PO (10:09)
[2024-08-27] MEDS: DOXYCYCLINE HYCLATE 50 MG CAPSULE PO (10:09)
[2024-08-27 10:57] LABS: Free T4 Free Thyroxine 1.29 ng/dL (0.78-2.19)
[2024-08-27 11:14] LABS: Thyroid Stimulating Hormone 3.750 uIU/mL (0.465-4.680)
[2024-08-27 11:19] LABS: Troponin I 0.292 ng/mL (0.000-0.034)
[2024-08-27] MEDS: SODIUM CHLORIDE 0.9% IV 1,000 ML 100 ML IV CONT (12:30)
[2024-08-27 14:29] LABS: Alveolar/Arterial O2 Gradient 575.6 mmHg; Fractional Inspired Oxygen 100 %; HCO3 ABG 21.8 mEq/l (22.0-26.0); Oxygen Content ABG 13.7 %vol (16.0-22.0); Oxygen Saturation ABG 95.6 % (95.0-100.0); PCO2 ABG 48.3 mmHg (35.0-45.0); PO2 ABG 89.1 mmHg (80.0-100.0); PO2 FiO2 Ratio Arterial Blood 0.89 %
[2024-08-27 14:35] LABS: Liters per Minute 15.0 LPM; Modified Allen's Test Pass; Site Drawn LEFT RADIAL
--- NOTE | 2024-08-27 14:45 | PC.NURSE ---
At 1400pm this RN walked into the patient room for hourly safety rounds. This RN noted that the patient has scooted himself down in bed and unable to assist with repositioning. This RN called for assistance and pulled the patient up in bed. Patient was noted to be obtunded. Vital signs obtained and noted that Oxygen saturations 80% on 10L/HFNC. Placed on 15L non-rebreather, called MD and eye dropper assembler. MD on the floor came to the room to assess the patient. Orders received to obtain ABG, and chest x-ray STAT. RT and radiology called. ABGs obtained while on 15L/Non-rebreather. See results in chart. Results of ABG and CXR called to the MD at approximately 1430pm. Orders received to place Mcdermott catheter and give Lasix (see eMAR for dosing/route). Patient current oxygen saturations on 15L/NC are 95%. Patient is able to tell me his name, home address and that he is in the hospital, although he is noted to have garbled speech and drowsy.
[2024-08-27] MEDS: FUROSEMIDE INJ 40 MG/4 ML VIAL 20 MG IV PUSH (14:56)
[2024-08-27 16:36] LABS: Hematocrit 28.7 % (42.0-52.0); Hemoglobin 9.0 g/dL (14.0-18.0); Mean Corpuscular HGB Conc 31.4 g/dl (32-36); Mean Corpuscular Hemoglobin 33.6 pg (26-34); Mean Corpuscular Volume 107.1 fl (80-100); Platelet Count Result 124 k/mm3 (150-375); Red Blood Count 2.68 M/mm3 (4.6-6.20); White Blood Count 6.8 K/mm3 (4.5-10.0)
[2024-08-27 16:51] LABS: Alanine Aminotransferase 174 U/L (6-50); Albumin Level 4.2 g/dL (3.5-5.1); Alkaline Phosphatase 85 U/L (38-126); Anion Gap 16 mmol/L (4-12); Aspartate Amino Transferase 495 U/L (17-59); Bilirubin,Total 1.7 mg/dL (0.2-1.3); Blood Urea Nitrogen 32 mg/dL (9-20); Calcium 8.5 mg/dL (8.4-10.2); Carbon Dioxide 21 mmol/L (22-30); Chloride 94 mmol/L (98-107); Estimated CRCL calculation 22 ml/min; Estimated Glomerular Filt Rate 15; Glucose 127 mg/dL (65-110); Magnesium 2.3 mg/dL (1.6-2.3); Potassium 5.1 mmol/L (3.4-5.0); Sodium 131 mmol/L (137-145); Total Protein 8.3 g/dL (6.3-8.2)
[2024-08-27] MEDS: PIPERACILLIN/TAZOBACTAM SOD 3.375 GM in SODIUM CHLORIDE 0.9% IV 50 ML 100 ML IVPB ×2 (17:57→23:51)
[2024-08-27 18:03] LABS: Ammonia 30 umol/L (9-30)
[2024-08-27 21:35] LABS: Alveolar/Arterial O2 Gradient 586.8 mmHg; Carboxyhemoglobin 0.1 % THb (0-2.0); Fractional Inspired Oxygen 100 %; HCO3 ABG 21.8 mEq/l (22.0-26.0); Methemoglobin ABG 0.2 %THb (0-1.5); Oxygen Content ABG 13.6 %vol (16.0-22.0); Oxygen Saturation ABG 94.2 % (95.0-100.0); PCO2 ABG 47.2 mmHg (35.0-45.0); PO2 ABG 79.0 mmHg (80.0-100.0); PO2 FiO2 Ratio Arterial Blood 0.79 %; Reduced Hemoglobin 6.6 %THb (0-5.0)
[2024-08-27 21:37] LABS: Liters per Minute 15.0 LPM; Modified Allen's Test Pass; Site Drawn RIGHT RADIAL
[2024-08-27] MEDS: SODIUM BICARBONATE 8.4% 50 MEQ/50 ML SYRINGE IV PUSH (22:34)
[2024-08-28] VITALS (26 sets, daily range): BP systolic 103–128; BP diastolic 52–77; PULSE 18–115; RESP 15–96; TEMP 36.4–36.8; O2SAT 90–100
[2024-08-28 05:03] LABS: Hematocrit 28.8 % (42.0-52.0); Hemoglobin 9.0 g/dL (14.0-18.0); Mean Corpuscular HGB Conc 31.3 g/dl (32-36); Mean Corpuscular Hemoglobin 33.1 pg (26-34); Mean Corpuscular Volume 105.9 fl (80-100); Platelet Count Result 105 k/mm3 (150-375); Red Blood Count 2.72 M/mm3 (4.6-6.20); White Blood Count 8.8 K/mm3 (4.5-10.0)
[2024-08-28 05:10] LABS: Creatine Kinase 435 U/L (55-170)
[2024-08-28 05:17] LABS: Anion Gap 15 mmol/L (4-12); Blood Urea Nitrogen 40 mg/dL (9-20); Calcium 8.4 mg/dL (8.4-10.2); Carbon Dioxide 24 mmol/L (22-30); Chloride 94 mmol/L (98-107); Estimated CRCL calculation 19 ml/min; Estimated Glomerular Filt Rate 13; Glucose 114 mg/dL (65-110); Magnesium 2.4 mg/dL (1.6-2.3); Potassium 4.6 mmol/L (3.4-5.0); Sodium 133 mmol/L (137-145)
[2024-08-28 05:27] LABS: Troponin I 0.188 ng/mL (0.000-0.034)
[2024-08-28 05:46] LABS: Hepatitis B Surface Antigen Negative (Negative)
[2024-08-28 06:03] LABS: Hepatitis B Surface Anti Res Negative
[2024-08-28] MEDS: PIPERACILLIN/TAZOBACTAM SOD 3.375 GM in SODIUM CHLORIDE 0.9% IV 50 ML 100 ML IVPB ×3 (06:20→17:03)
[2024-08-28] MEDS: SODIUM BICARBONATE TAB 650 MG TABLET PO ×2 (08:52→16:54)
[2024-08-28] MEDS: PANTOPRAZOLE 40 MG TABLET PO ×2 (08:52→16:54)
[2024-08-28] MEDS: MULTIVITAMINS THERAPEUTIC TAB (*BKC) 1 TABLET PO (08:52)
[2024-08-28] MEDS: OMEGA 3 POLYUNSAT FATTY ACIDS 1 GM CAP 2 GM PO ×2 (08:52→16:54)
[2024-08-28] MEDS: MAGNESIUM OXIDE 400 MG TABLET PO (08:52)
[2024-08-28 10:30] LABS: Alanine Aminotransferase 162 U/L (6-50); Albumin Level 4.1 g/dL (3.5-5.1); Alkaline Phosphatase 86 U/L (38-126); Aspartate Amino Transferase 343 U/L (17-59); Bilirubin,Total 1.2 mg/dL (0.2-1.3); Total Protein 8.0 g/dL (6.3-8.2)
[2024-08-28] MEDS: THIAMINE HCL INJ 100 MG, FOLIC ACID INJ 1 MG, MAGNESIUM SULFATE INJ 1 GM, MULTIVITAMINS... 75 MG IVPB (10:32)
[2024-08-28] MEDS: DOXYCYCLINE HYCLATE 50 MG CAPSULE PO (12:14)
[2024-08-28] MEDS: SUCRALFATE 1 GM TABLET PO ×3 (12:14→20:41)
--- NOTE | 2024-08-28 12:20 | P.CONNP_ITS ---
Assessment and Plan Assessment and plan (1) Acute kidney injury: Code(s): N17.9 - Acute kidney failure, unspecified Status: Acute Assessment and Plan: * as noted by labs done on 08/27 (creatinine up to 2.82mg/dl) * renal function/creatinine at baseline on admission: * baseline creatinine seems to run ~ 1.1 - 1.4mg/dl in the last few years * creatinine 1.28mg/dl on admission * suspect multifactorial: * afib with RVR * relative hypotension * medications prior to admission (ARB + diuretics) * contrast exposure (CTA chest on 08/26) * CHF exacerbation * other(?) * evaluation to date noted: * urine electrolytes prerenal * urine eosinophils negative * mild proteinuria * UA without evidence of infection * CPK elevated (but not enough to affect kidney function) * renal ultrasound okay * concerning that he is not making much urine * optimize hemodynamics * follow trend of repeat labs and UOP (2) Atrial fibrillation with rapid ventricular response: Code(s): I48.91 - Unspecified atrial fibrillation Status: Acute Assessment and Plan: * as noted on presentation * rate control strategy - on oral cardizem * not on anticoagulation due to peptic ulcer disease * Echo (08/26) noted: * left ventricular systolic function is normal, estimated at 60-65% * left ventricular diastolic function is abnormal * mild mitral valve regurgitation * mild tricuspid valve regurgitation * mild pulmonary hypertension, estimated pulmonary arterial systolic pressure is 37 mmHg. * Cardiology following (3) Pneumonia: Code(s): J18.9 - Pneumonia, unspecified organism Status: Acute Assessment and Plan: * admission CXR noted * follow culture data * on antibiotics (4) Alcoholic hepatitis: Code(s): K70.10 - Alcoholic hepatitis without ascites Status: Acute Assessment and Plan: * GI following * complicated by liver cirrhosis * started on prednisone * continue supportive therapy (5) Anemia: Code(s): D64.9 - Anemia, unspecified Status: Acute Assessment and Plan: * due to PATRICA and acute illness * hematuria maybe playing a role as well... * follow trend of H/H (6) Gross hematuria: Code(s): R31.0 - Gross hematuria Status: Acute Assessment and Plan: * Urology following * suspect secondary to jackson trauma * continue jackson catheter I will continue to follow the patient with you while he remains hospitalized and make further recommendations as deemed necessary. Thank you for allowing me to participate in the care of this patient. L History of Present Illness Reason for Consult Consult date: 08/28/24 Reason for consult: acute renal failure Chief Complaint Chief complaint: AFib RVR, Acute heart failure History of Present Illness Narrative: A great majority of the history that I have obtained is from review of the electronic medical record as is difficult to get a full and complete history from the patient as he apparently appears to be having issues/ symptoms with alcohol withdrawal at the time my visit. The patient is a 63-year-old male with a past medical history as outlined below who presented to [facility] Emergency Room with complaints of shortness of breath in association with a ground level fall at home. Apparently, following the fall at home, his family had difficulty get numb up the ground. EMS was called for further assistance and on their arrival, they noted him to be a bit short of breath and tachycardic. It is unclear if the symptoms were present prior to or started after his fall since the patient is unable to provide much history but from what information of family could provide, he did not make any specific complaints with regard to these issues. EMS subsequently transported him to the emergency room for further assessment. Upon presentation to the emergency room, he was still noted to be somewhat short of breath and tachycardic. EKG demonstrated atrial fibrillation with RVR and routine blood tests demonstrated a creatinine of 1.28 mg/dL without any critical electrolyte abnormalities other than mild hyponatremia and a CBC with no significant leukocytosis and relative anemia with a hemoglobin of 9.6. His initial troponin was mildly elevated but this was felt to be demand ischemia from his atrial fibrillation. He was subsequently admitted to the hospital for further evaluation therapy with consultation with Cardiology given his atrial fibrillation with RVR. Apparently, according family reports, he was supposed to possibly have cardioversion for correction/stabilization of this issue as an outpatient. Since admission, he has been seen by Cardiology with efforts to rate control his atrial fibrillation. He apparently is not on anticoagulation due to history of peptic ulcer disease. Is been noted that since his admission, his renal function/creatinine has been slowly deteriorating. Furthermore, as mentioned above, it would appear that he is going through symptoms of alcohol withdrawal as well. Renal consultation was requested due to his acute kidney injury/acute renal failure. As already mentioned above, his renal function was well within normal limits if not at his baseline on presentation to the emergency room. However, over last 24-48 hours, his creatinine has deteriorated from 1.26mg/dl to 2.82 mg/dl to 4.6 mg/dl by labs done this morning. In spite of this rapid decline in his kidney function, he has no critical electrolyte abnormalities, metabolic acidosis, or evidence of volume overload although there is some concern that he is not making very much urine in the context of his worsening renal function. Currently, at the time my evaluation, he does not appear to be in any acute distress but he is on medications to help with his alcohol withdrawal. Review of Systems 2 Review of Systems: As per HPI. [facility] Past Medical History Medical History (Updated 09/29/24 @ 20:21 by Alex Barry MD) Occult blood in stools Acute on chronic anemia Alcoholic hepatitis Alcohol abuse GERD (gastroesophageal reflux disease) Hyperlipidemia Hypertension Hypermagnesemia Family History Family History Father Acute myocardial infarction Mother Cerebrovascular accident Social History Social History Smoking packs per day: 2 Smoking cigarettes per day: 40.0 Years smoked: 30 Smoking pack-years: 60.00 Smoking status: Former smoker Tobacco type: cigarettes Second hand tobacco smoke exposure: No Smoking end date: 02/20/06 Alcohol intake: former Drinks per week: 48 Substance use: never Substance use type: does not use Do You Feel Safe in your Home?: Yes Lack of Transportation: No Lack of Food: Never True Current Housing: I Have Housing Concerned About Future Housing: No Difficulty Paying Gas/Electric Bills: No Difficulty Paying for Meds: No Currently Unemployed: No Education: High School Diploma/GED Difficulty w/ Childcare or Family Care: No Gender identity (if verbalized by the patient): Male Sexual Orientation (if Verbalized by the Patient): Straight or Heterosexual Spiritual care concerns: No Meds Home Medications and Allergies Home Medications ?Medication ?Instructions ?Recorded ?Confirmed ?Type amlodipine 10 mg tablet 10 mg PO DAILY 04/20/22 09/06/24 History irbesartan 150 mg tablet 150 mg PO DAILY 04/20/22 09/06/24 History aspirin 81 mg tablet,delayed 81 mg PO DAILY 08/26/24 09/06/24 History release (Adult Aspirin Regimen) furosemide 20 mg tablet 20 mg PO DAILY 08/26/24 09/06/24 History lovastatin 40 mg tablet 40 mg PO HS 08/26/24 09/06/24 History magnesium 200 mg tablet 400 mg PO DAILY 08/26/24 09/06/24 History multivitamin (Daily Multi-Vitamin 1 tablet PO DAILY 08/26/24 09/06/24 History tablet) omega [id number]-fish oil 100 2 cap PO BID 08/26/24 09/06/24 History mg-160 mg-1,000 mg capsule (Fish Oil) pantoprazole 40 mg tablet,delayed 40 mg PO BID 08/26/24 09/06/24 History release propranolol 120 mg capsule,24 120 mg PO HS 08/26/24 09/06/24 History hr,extended release sucralfate 1 gram tablet 1 g PO .with meals and HS 08/26/24 09/06/24 History diltiazem HCl 240 mg 240 mg PO QAM #30 caps 09/06/24 09/06/24 Rx capsule,extended release 24 hr, controlled empagliflozin 10 mg tablet 10 mg PO DAILY #30 tabs 09/06/24 09/06/24 Rx (Jardiance) folic acid 1 mg tablet 1 mg PO DAILY 30 days #30 tabs 09/06/24 09/06/24 Rx potassium chloride 20 mEq oral 40 meq PO DAILY #7 ea 09/06/24 09/06/24 Rx packet thiamine HCl (vitamin B1) 100 mg 100 mg PO QAM #30 tabs 09/06/24 09/06/24 Rx tablet (Vitamin B-1) Allergies Allergy/AdvReac Type Severity Reaction Status Date / Time azithromycin Allergy Unknown Verified 08/26/24 00:59 ezetimibe (From Vytorin) Allergy Unknown Verified 08/26/24 00:59 simvastatin (From Vytorin) Allergy Unknown Verified 08/26/24 00:59 Vital Signs Vital Signs Temp Pulse Pulse Resp BP Pulse Ox O2 Del Method 08/28/24 12:00 97.5 F L 100 H 96 H 112/60 99 08/28/24 11:30 106 H 16 98 CPAP 08/28/24 10:00 101 H 08/28/24 08:56 66 15 98 CPAP 08/28/24 08:00 98 08/28/24 08:00 66 15 98 CPAP 08/28/24 07:56 97.8 F 73 18 106/64 98 08/28/24 06:00 100 08/28/24 05:14 108 H 24 H 98 CPAP 08/28/24 04:00 80 08/28/24 04:00 97 CPAP 08/28/24 04:00 98 08/28/24 03:10 98.0 F 85 18 121/68 100 08/28/24 01:41 112 H 18 98 CPAP 08/28/24 00:00 79 08/27/24 23:54 98 CPAP 08/27/24 23:54 88 08/27/24 23:18 98.4 F 85 17 111/63 94 08/27/24 23:01 27 H CPAP 08/27/24 20:00 76 08/27/24 20:00 76 93 Non-Rebreather Mask 08/27/24 20:00 76 08/27/24 19:14 98.2 F 71 18 103/76 97 08/27/24 17:59 61 Exam 2 Narrative: GENERAL APPEARANCE: large male laying in bed on CPAP HEENT: normocephalic, atraumatic, normal conjunctiva and sclera, nares patient NECK: no lymphadenopathy, thyromegaly, or JVD MOUTH: normal lips, teeth, and gums CARDIOVASCULAR: tachycardic IRRR, normal S1 and S2, no rub RESPIRATORY: clear anteriorly ABDOMEN: soft, nontender, nondistended, positive bowel sounds present EXTREMITIES: no evidence of cyanosis, clubbing, 1+ edema NEUROLOGICAL: alert and oriented x 2 -3; no focal deficits noted Results Lab Results 09/06/24 06:07 09/06/24 06:07 Lab results: Most recent lab results ABG pH 7.282 (7.350-7.450) L* 08/27/24 21:23 ABG pCO2 47.2 mmHg (35.0-45.0) H 08/27/24 21:23 ABG pO2 79.0 mmHg (80.0-100.0) L 08/27/24 21:23 ABG HCO3 21.8 mEq/l (22.0-26.0) L 08/27/24 21:23 ABG O2 Saturation 94.2 % (95.0-100.0) L 08/27/24 21:23 Calcium 8.4 mg/dL (8.4-10.2) 08/28/24 04:35 Magnesium 2.4 mg/dL (1.6-2.3) H 08/28/24 04:35 Urine Creatinine 143.2 mg/dL 08/28/24 12:02 Urine Creatinine 145.4 mg/dL 08/28/24 12:02
[2024-08-28 12:53] LABS: Urine Eos QC 2nd Tech Confirmed
[2024-08-28 14:22] LABS: Urea Random Urine 380 MG/DL
[2024-08-28 14:27] LABS: Total Protein Urine Random 73 mg/dL; Ur Ttl Prot Creatinine Ratio 0.50 mg/mg (0-0.20)
[2024-08-28 14:31] LABS: Total Protein Urine Random 72 mg/dL
[2024-08-28] MEDS: dilTIAZem HCL TAB 30 MG, dilTIAZem HCL TAB 60 MG 90 MG PO ×2 (14:40→20:41)
--- NOTE | 2024-08-28 16:29 | P.PNIM_ITS ---
Progress Note: A&P Assessment and Plan (1) Acute on chronic diastolic heart failure: Code(s): I50.33 - Acute on chronic diastolic (congestive) heart failure Status: Acute (2) Elevated troponin: Code(s): R79.89 - Other specified abnormal findings of blood chemistry Status: Inactive (3) Demand ischemia: Code(s): I24.89 - Other forms of acute ischemic heart disease Status: Inactive (4) Atrial fibrillation with rapid ventricular response: Code(s): I48.91 - Unspecified atrial fibrillation Status: Inactive (5) CHF (congestive heart failure): Qualifiers: Heart failure chronicity: acute Heart failure type: unspecified Qualified Code(s): I50.9 - Heart failure, unspecified Code(s): I50.9 - Heart failure, unspecified Status: Inactive (6) Alcohol abuse: Code(s): F10.10 - Alcohol abuse, uncomplicated Status: Acute Plan ER-HPI Narrative: Patient is a 63-year-old male with known AFib and off his Eliquis at this time for peptic ulcer disease /recent polyp removal here with shortness of breath and a ground level fall at home. EMS was called for a lift assist and further found him to be short of breath and tachycardic and brought him to the emergency room for evaluation. Patient was post have a electric cardioversion of his AFib in the near future. patient was seen by material handling crew supervisor suspect patient has demand ischemia due to A. Fib RVR and does not have ACS, however patient in not on any anticoagulation for the A .fib as patient history of PUD, will consult GI for further recommendation. Patient with history daily 6 drinks and last drinks was 2 days ago and currently patient is in withdrawal, patient is given Ativan 2mg IV x1, place the patient on Librium 50mg q6 Ana Cristina, and started the patient on banana beg, to provide thiamin and multiple vitamin, will monitor patient with CIWA protocol. patient remains clinically stable does not show any signs or symptoms or withdrawl, remains in A. Fib uable to anticoagulate due PUD and recent removal of clonic polyps, Chest x-ray shows pulmonary edema did give low dose IV lasix 20mg, not much urine out put and his Scr calista , consulted equipment monitor phototypesetting on 08/27, further recommendation to follow, patient with elevated LFT, long history of alcohol abuse, abdomen US showed single static measurement of the common bile duct is 4 mm, a significant difference from recent CT examination for which MRCP (may be performed without intravenous contrast) is recommended for confirmation. will reconsult GI for further recommendation, will monitor, his is present gave update. Subjective Date/time seen: 08/28/24 16:29 Interval history: ER-HPI Narrative: Patient is a 63-year-old male with known AFib and off his Eliquis at this time for peptic ulcer disease /recent polyp removal here with shortness of breath and a ground level fall at home. EMS was called for a lift assist and further found him to be short of breath and tachycardic and brought him to the emergency room for evaluation. Patient was post have a electric cardioversion of his AFib in the near future. patient was seen by material handling crew supervisor suspect patient has demand ischemia due to A. Fib RVR and does not have ACS, however patient in not on any anticoagulation for the A .fib as patient history of PUD, will consult GI for further recommendation. Patient with history daily 6 drinks and last drinks was 2 days ago and currently patient is in withdrawal, patient is given Ativan 2mg IV x1, place the patient on Librium 50mg q6 Ana Cristina, and started the patient on banana beg, to provide abilio in and multiple vitamin, will monitor patient with CIWA protocol. patient remains clinically stable does not show any signs or symptoms or withdrawl, remains in A. Fib uable to anticoagulate due PUD and recent removal of clonic polyps, Chest x-ray shows pulmonary edema did give low dose IV lasix 20mg, not much urine out put and his Scr calista , consulted equipment monitor phototypesetting on 08/27, further recommendation to follow, patient patient with elevated LFT, long history of alcohol abuse, abdomen US showed single static measurement of the common bile duct is 4 mm, a significant difference from recent CT examination for which MRCP (may be performed without intravenous contrast) is recommended for confirmation. will reconsult GI for further recommendation, will monitor, his is present gave update. Review of Systems Review of Systems: As per HPI Exam Narrative: Morbidly obese Patient is comfortable, NAD HEENT: eyes are clear and none icteric LUNGS: Irregularly irregular tachy HEART: RR S1S2 ABD: BS+, Soft and nontender Lower extremities: no edema SKIN: nonjaundiced Neuro: grossly intact. Objective Data Vital Signs Vital Signs: Vital Signs - 24 hr 08/27/24 17:59 08/27/24 19:14 08/27/24 20:00 Temperature 36.8 C Pulse Rate 61 71 Pulse Rate [Bilateral Radial Palpation] 76 Respiratory Rate 18 Blood Pressure 103/76 Pulse Oximetry 97 Oxygen Delivery Oxygen Flow Rate Fraction of Inspired Oxygen 08/27/24 20:00 08/27/24 20:00 08/27/24 23:01 Temperature Pulse Rate 76 76 Pulse Rate [Bilateral Radial Palpation] Respiratory Rate 27 H Blood Pressure Pulse Oximetry 93 Oxygen Delivery Non-Rebreather Mask CPAP Oxygen Flow Rate 15 Fraction of Inspired Oxygen 08/27/24 23:18 08/27/24 23:54 08/27/24 23:54 Temperature 36.9 C Pulse Rate 85 Pulse Rate [Bilateral Radial Palpation] 88 Respiratory Rate 17 Blood Pressure 111/63 Pulse Oximetry 94 98 Oxygen Delivery CPAP Oxygen Flow Rate Fraction of Inspired Oxygen 70 08/28/24 00:00 08/28/24 01:41 08/28/24 03:10 Temperature 36.7 C Pulse Rate 79 112 H 85 Pulse Rate [Bilateral Radial Palpation] Respiratory Rate 18 18 Blood Pressure 121/68 Pulse Oximetry 98 100 Oxygen Delivery CPAP Oxygen Flow Rate Fraction of Inspired Oxygen 08/28/24 04:00 08/28/24 04:00 08/28/24 04:00 Temperature Pulse Rate 80 Pulse Rate [Bilateral Radial Palpation] 98 Respiratory Rate Blood Pressure Pulse Oximetry 97 Oxygen Delivery CPAP Oxygen Flow Rate Fraction of Inspired Oxygen 70 08/28/24 05:14 08/28/24 06:00 08/28/24 07:56 Temperature 36.6 C Pulse Rate 108 H 100 73 Pulse Rate [Bilateral Radial Palpation] Respiratory Rate 24 H 18 Blood Pressure 106/64 Pulse Oximetry 98 98 Oxygen Delivery CPAP Oxygen Flow Rate Fraction of Inspired Oxygen 08/28/24 08:00 08/28/24 08:00 08/28/24 08:56 Temperature Pulse Rate 66 98 66 Pulse Rate [Bilateral Radial Palpation] Respiratory Rate 15 15 Blood Pressure Pulse Oximetry 98 98 Oxygen Delivery CPAP CPAP Oxygen Flow Rate Fraction of Inspired Oxygen 50 08/28/24 10:00 08/28/24 11:30 08/28/24 12:00 Temperature 36.4 C L Pulse Rate 101 H 106 H 18 L Pulse Rate [Bilateral Radial Palpation] Respiratory Rate 16 96 H Blood Pressure 112/60 Pulse Oximetry 98 99 Oxygen Delivery CPAP Oxygen Flow Rate Fraction of Inspired Oxygen 08/28/24 12:00 08/28/24 12:00 08/28/24 14:00 Temperature Pulse Rate 107 H 95 Pulse Rate [Bilateral Radial Palpation] Respiratory Rate Blood Pressure Pulse Oximetry Oxygen Delivery CPAP Oxygen Flow Rate Fraction of Inspired Oxygen 50 08/28/24 15:05 Temperature Pulse Rate 115 H Pulse Rate [Bilateral Radial Palpation] Respiratory Rate 16 Blood Pressure Pulse Oximetry 98 Oxygen Delivery CPAP Oxygen Flow Rate Fraction of Inspired Oxygen Intake/Output Intake/Output: Intake & Output 08/25/24 08/26/24 08/27/24 08/28/24 23:59 23:59 23:59 23:59 Intake Total 246.7 3135.8 100 Output Total 310 100 Balance 246.7 2825.8 0 Meds/Results Medications: Active Medications Generic Name Dose Route Start Last Admin Trade Name Freq PRN Reason Stop Dose Admin Acetaminophen 650 mg 08/26/24 06:26 Acetaminophen 325 Mg Tablet PO Q4H PRN Mild Pain (1-3) or Fever Al Hydrox/Mg Hydrox/Simethicone 30 ml 08/26/24 06:26 Mag Hydrox/Al Hydrox/Simeth 30 Ml Udc PO QID PRN Dyspepsia Amlodipine Besylate 10 mg 08/26/24 09:00 08/28/24 08:48 Amlodipine Besylate 10 Mg Tablet PO Not Given DAILY ANA CRISTINA Bisacodyl 5 mg 08/26/24 06:26 Bisacodyl 5 Mg Tablet Ec PO DAILY PRN Constipation Chlordiazepoxide HCl 25 mg 08/28/24 09:00 08/28/24 08:48 Chlordiazepoxide (*Crx) 25 Mg Capsule PO 08/29/24 09:00 Not Given Q12HR ANA CRISTINA Diltiazem HCl 30 mg/ Diltiazem 90 mg 08/27/24 10:15 08/28/24 14:40 HCl 60 mg PO 90 mg Q8HR ANA CRISTINA Administration Doxycycline Hyclate 50 mg 08/26/24 11:00 08/28/24 12:14 Doxycycline Hyclate 50 Mg Capsule PO 50 mg Q24H ANA CRISTINA Administration Fish Oil 2 gm 08/26/24 09:00 08/28/24 08:52 [place] 3 Polyunsat Fatty Acids 1 Gm Cap PO 2 gm BID ANA CRISTINA Administration Furosemide 20 mg 08/26/24 09:00 08/27/24 08:48 Furosemide 20 Mg Tablet PO 20 mg DAILY ANA CRISTINA Administration Hydrochlorothiazide 25 mg 08/26/24 09:00 08/27/24 08:48 Hydrochlorothiazide 25 Mg Tablet PO 25 mg DAILY ANA CRISTINA Administration Thiamine HCl 100 mg/ Folic 1,013.2 mls @ 75 mls/hr 08/26/24 10:00 08/28/24 10:32 Acid 1 mg/ Magnesium Sulfate 1 IVPB 75 mls/hr gm/ Multivitamins 5 ml/ Q24H ANA CRISTINA Administration Multivitamins 5 ml/ Sodium Chloride Piperacillin Sod/Tazobactam 50 mls @ 100 mls/hr 08/27/24 18:00 08/28/24 12:14 Sod 3.375 gm/ Sodium Chloride IVPB 100 mls/hr Q6H ANA CRISTINA Administration Irbesartan 150 mg 08/26/24 09:00 08/28/24 08:48 Irbesartan 150 Mg Tablet PO Not Given DAILY ANA CRISTINA Lorazepam 2 mg 08/26/24 21:53 Lorazepam Inj (*Crx) 2 Mg/Ml Vial IV PUSH Q2H PRN CIWA > 15 Lorazepam 2 mg 08/26/24 21:53 08/27/24 10:08 Lorazepam Inj (*Crx) 2 Mg/Ml Vial IV PUSH 2 mg Q4H PRN Administration CIWA 8-15 Lovastatin 40 mg 08/26/24 21:00 08/27/24 20:14 Lovastatin 20 Mg Tablet PO Not Given HS ANA CRISTINA Magnesium Oxide 400 mg 08/26/24 09:00 08/28/24 08:52 Magnesium Oxide 400 Mg Tablet PO 400 mg DAILY ANA CRISTINA Administration Multivitamins Therapeutic 1 tablet 08/26/24 09:00 08/28/24 08:52 Multivitamins Therapeutic Tab (*Bkc) PO 1 tablet DAILY ANA CRISTINA Administration Pantoprazole Sodium 40 mg 08/26/24 09:00 08/28/24 08:52 Pantoprazole 40 Mg Tablet PO 40 mg BID ANA CRISTINA Administration Propranolol HCl 120 mg 08/26/24 21:00 08/27/24 20:14 Propranolol Hcl 60 Mg Capsule Cr PO Not Given HS ANA CRISTINA Sodium Bicarbonate 650 mg 08/27/24 22:10 08/28/24 08:52 Sodium Bicarbonate Tab 650 Mg Tablet PO 650 mg BID ANA CRISTINA Administration Sucralfate 1 gm 08/26/24 11:30 08/28/24 12:14 Sucralfate 1 Gm Tablet PO 1 gm ACHS ANA CRISTINA Administration Radiology Results: ITS Impressions Chest X-Ray 08/27/24 14:28 IMPRESSION: Moderate pulmonary edema. Superimposed infection cannot be excluded. Airspace opacity in the right upper lung zone may represent pneumonia in appropriate clinical settings. Short-term follow-up chest radiograph is recommended after appropriate clinical therapy. Renal Ultrasound 08/28/24 09:25 IMPRESSION: No hydronephrosis or renal calculi. Findings suggesting medical renal disease. Abdomen Ultrasound 08/28/24 11:48 IMPRESSION: Limited evaluation of the pancreas secondary to overlying bowel gas. Trace perihepatic free fluid. Phasic flow within the portal vein. Hepatomegaly. Single static measurement of the common bile duct is 4 mm, a significant difference from recent CT examination for which MRCP (may be performed without intravenous contrast) is recommended for confirmation. Labs Labs: Laboratory Results - last 24 hr 08/27/24 08/27/24 08/27/24 16:29 17:25 18:41 WBC 6.8 RBC 2.68 L Hgb 9.0 L Hct 28.7 L MCV 107.1 H MCH 33.6 MCHC 31.4 L RDW 14.5 Plt Count 124 L MPV 9.6 Puncture Site ABG pH ABG pCO2 ABG pO2 ABG PO2/FiO2 Ratio ABG HCO3 ABG O2 Saturation ABG O2 Content ABG Base Excess A-a Gradient Oxyhemoglobin Carboxyhemoglobin Methemoglobin Reduced Hemoglobin Total Hemoglobin O2 Delivery Device O2 Liters/Min FiO2 Sodium 131 L Potassium 5.1 H Chloride 94 L Carbon Dioxide 21 L Anion Gap 16 H BUN 32 H Creatinine 3.95 H Estim Creat Clear Calc 22 Estimated GFR 15 L Glucose 127 H POC Capillary Glucose 111 H Calcium 8.5 Magnesium 2.3 Total Bilirubin 1.7 H Direct Bilirubin AST 495 H ALT 174 H Alkaline Phosphatase 85 Ammonia 30 Total Creatine Kinase Troponin I Total Protein 8.3 H Albumin 4.2 Urine Eosinophils U Random Total Protein Ur Random Sodium Ur Random Urea Urine Creatinine Protein/Creat Ratio 2 Hep Bs Antigen Hep Bs Antibody 08/27/24 08/28/24 08/28/24 21:23 00:37 04:35 WBC 8.8 RBC 2.72 L Hgb 9.0 L Hct 28.8 L MCV 105.9 H MCH 33.1 MCHC 31.3 L RDW 14.4 Plt Count 105 L MPV 10.0 Puncture Site Right radial ABG pH 7.282 L* ABG pCO2 47.2 H ABG pO2 79.0 L ABG PO2/FiO2 Ratio 0.79 ABG HCO3 21.8 L ABG O2 Saturation 94.2 L ABG O2 Content 13.6 L ABG Base Excess -4.8 A-a Gradient 586.8 Oxyhemoglobin 93.1 Carboxyhemoglobin 0.1 Methemoglobin 0.2 Reduced Hemoglobin 6.6 H Total Hemoglobin 10.3 L O2 Delivery Device Non-rebreather mask O2 Liters/Min 15.0 FiO2 100 Sodium 133 L Potassium 4.6 Chloride 94 L Carbon Dioxide 24 Anion Gap 15 H BUN 40 H Creatinine 4.60 H Estim Creat Clear Calc 19 Estimated GFR 13 L Glucose 114 H POC Capillary Glucose 127 H Calcium 8.4 Magnesium 2.4 H Total Bilirubin 1.2 Direct Bilirubin 0.0 AST 343 H ALT 162 H Alkaline Phosphatase 86 Ammonia Total Creatine Kinase 435 H Troponin I 0.188 H* Total Protein 8.0 Albumin 4.1 Urine Eosinophils U Random Total Protein Ur Random Sodium Ur Random Urea Urine Creatinine Protein/Creat Ratio 2 Hep Bs Antigen Negative Hep Bs Antibody Negative 08/28/24 08/28/24 08/28/24 07:56 11:51 12:02 WBC RBC Hgb Hct MCV MCH MCHC RDW Plt Count MPV Puncture Site ABG pH ABG pCO2 ABG pO2 ABG PO2/FiO2 Ratio ABG HCO3 ABG O2 Saturation ABG O2 Content ABG Base Excess A-a Gradient Oxyhemoglobin Carboxyhemoglobin Methemoglobin Reduced Hemoglobin Total Hemoglobin O2 Delivery Device O2 Liters/Min FiO2 Sodium Potassium Chloride Carbon Dioxide Anion Gap BUN Creatinine Estim Creat Clear Calc Estimated GFR Glucose POC Capillary Glucose 114 H 115 H Calcium Magnesium Total Bilirubin Direct Bilirubin AST ALT Alkaline Phosphatase Ammonia Total Creatine Kinase Troponin I Total Protein Albumin Urine Eosinophils None seen U Random Total Protein 73 Ur Random Sodium Ur Random Urea Urine Creatinine Protein/Creat Ratio 2 Hep Bs Antigen Hep Bs Antibody 08/28/24 08/28/24 12:02 12:02 WBC RBC Hgb Hct MCV MCH MCHC RDW Plt Count MPV Puncture Site ABG pH ABG pCO2 ABG pO2 ABG PO2/FiO2 Ratio ABG HCO3 ABG O2 Saturation ABG O2 Content ABG Base Excess A-a Gradient Oxyhemoglobin Carboxyhemoglobin Methemoglobin Reduced Hemoglobin Total Hemoglobin O2 Delivery Device O2 Liters/Min FiO2 Sodium Potassium Chloride Carbon Dioxide Anion Gap BUN Creatinine Estim Creat Clear Calc Estimated GFR Glucose POC Capillary Glucose Calcium Magnesium Total Bilirubin Direct Bilirubin AST ALT Alkaline Phosphatase Ammonia Total Creatine Kinase Troponin I Total Protein Albumin Urine Eosinophils U Random Total Protein 72 Ur Random Sodium 29 Ur Random Urea 380 Urine Creatinine 145.4 143.2 Protein/Creat Ratio 2 0.50 H Hep Bs Antigen Hep Bs Antibody Quality VTE Prophylaxis VTE prophylaxis: mechanical ordered
[2024-08-28] MEDS: ACETAMINOPHEN 325 MG TABLET 650 MG PO (16:54)
[2024-08-28] MEDS: LOVASTATIN 20 MG TABLET 40 MG PO (20:41)
[2024-08-28] MEDS: chlordiazePOXIDE (*CRX) 25 MG CAPSULE PO (20:41)
[2024-08-28] MEDS: PROPRANOLOL HCL 60 MG CAPSULE CR 120 MG PO (20:41)
[2024-08-29] VITALS (24 sets, daily range): BP systolic 106–130; BP diastolic 57–66; PULSE 62–87; RESP 16–34; TEMP 36.5–37.1; O2SAT 89–97
[2024-08-29] MEDS: PIPERACILLIN/TAZOBACTAM SOD 3.375 GM in SODIUM CHLORIDE 0.9% IV 50 ML 100 ML IVPB ×4 (00:16→18:28)
[2024-08-29 04:48] LABS: Hematocrit 27.9 % (42.0-52.0); Hemoglobin 8.8 g/dL (14.0-18.0); Immature Platelet Fraction Pct 5.5 % (0.9-11.2); Mean Corpuscular HGB Conc 31.5 g/dl (32-36); Mean Corpuscular Hemoglobin 33.3 pg (26-34); Mean Corpuscular Volume 105.7 fl (80-100); Platelet Count Result 111 k/mm3 (150-375); Red Blood Count 2.64 M/mm3 (4.6-6.20); White Blood Count 8.7 K/mm3 (4.5-10.0)
[2024-08-29 05:13] LABS: Anion Gap 11 mmol/L (4-12); Blood Urea Nitrogen 45 mg/dL (9-20); Calcium 8.6 mg/dL (8.4-10.2); Carbon Dioxide 25 mmol/L (22-30); Chloride 95 mmol/L (98-107); Estimated CRCL calculation 21 ml/min; Estimated Glomerular Filt Rate 14; Glucose 121 mg/dL (65-110); Magnesium 2.6 mg/dL (1.6-2.3); Potassium 4.4 mmol/L (3.4-5.0); Sodium 131 mmol/L (137-145)
[2024-08-29] MEDS: SUCRALFATE 1 GM TABLET PO ×3 (05:44→15:41)
[2024-08-29] MEDS: dilTIAZem HCL TAB 30 MG, dilTIAZem HCL TAB 60 MG 90 MG PO ×2 (05:44→15:40)
--- NOTE | 2024-08-29 07:10 | WPDGICN ---
Assessment and Plan Assessment and plan (1) Alcohol abuse: Code(s): F10.10 - Alcohol abuse, uncomplicated Status: Acute Assessment and Plan: The patient's clinical picture strongly suggests cirrhosis, evidenced by imaging demonstrating a nodular liver, perihepatic fluid, and persistent thrombocytopenia. While bilirubin and INR remain preserved, liver enzymes are consistent with alcoholic hepatitis, with an elevated AST disproportionately influenced by concurrent rhabdomyolysis (elevated CPK). However, his current renal failure, possible lung infection and normal INR and Bilirrubin does make him a good candidate for steroid treatment. His MELD 3.0 score is high but essentialy derived from a high creatinine. The 4mm common bile duct noted incidentally is not considered clinically significant at this time, as there is no associated obstruction, jaundice, or intrahepatic biliary dilatation. Due to the patient's current respiratory instability, an MRI is not feasible. This investigation could be pursued electively once his clinical status stabilizes, alcohol withdrawal resolves, and he is able to tolerate the imaging protocol (i.e., supine positioning, breath-holding). Regarding his acute kidney injury, a change from Zosyn to an alternative antibiotic is recommended. A Pulmonary consultation is strongly advised to assist with this decision. Plan - no MRCP is adivised at this point - Consider pulmonar consult : ? pneumonia, best treatment recommended GI Consult Note Consult date/time: 08/29/24 07:10 Reason for consult: Increased diameter of the common bile duct on ultrasound HPI: We are consulting on Jose Davidson, a 63-year-old male with atrial fibrillation, previously known to our service. Prior evaluation deemed him high-risk for anticoagulation, primarily due to a recent fall, alcohol abuse, and potential head trauma, despite a remote history of peptic ulcer disease and colonic polyp removal (>3 weeks ago). Cardiology ultimately decided against anticoagulation. His current hospitalization involves ongoing observation for improving alcohol withdrawal syndrome. Significant complications include exacerbation of CHF, possible pneumonia (treated with Zosyn), and worsening renal function. Nephrology notes multifactorial renal failure, primarily from CHF exacerbation and CT contrast. Our specific consultation is regarding to an incidental ultrasound finding from yesterday: a 4mm common bile duct and, more notably, minor perihepatic fluid. Significant labs from today include: White count 8.7, hemoglobin 8.9, platelet count 111, sodium 131, potassium 4.4, AST 343, ALT 162. Creatinine came down from 4.6 yesterday to 4.2 today. Review of Systems Review of Systems: All systems reviewed & are unremarkable except as noted in HPI and below [facility] Past Medical History Medical History (Updated 08/28/24 @ 17:04 by Alex Barry MD) GERD (gastroesophageal reflux disease) Hyperlipidemia Hypertension Alcohol abuse Hypermagnesemia Family History Family History Father Acute myocardial infarction Mother Cerebrovascular accident Social History Social History Smoking packs per day: 2 Smoking cigarettes per day: 40.0 Years smoked: 30 Smoking pack-years: 60.00 Smoking status: Former smoker Tobacco type: cigarettes Second hand tobacco smoke exposure: No Smoking end date: 02/20/06 Alcohol intake: current Drinks per week: 48 Substance use: unknown Substance use type: does not use Do You Feel Safe in your Home?: Yes Lack of Transportation: No Lack of Food: Never True Current Housing: I Have Housing Concerned About Future Housing: No Difficulty Paying Gas/Electric Bills: No Difficulty Paying for Meds: No Currently Unemployed: No Education: Trade/Vocational Certificate Difficulty w/ Childcare or Family Care: No Gender identity (if verbalized by the patient): Male Sexual Orientation (if Verbalized by the Patient): Straight or Heterosexual Spiritual care concerns: No Meds Home Medications and Allergies Home Medications ?Medication ?Instructions ?Recorded ?Confirmed ?Type amlodipine 10 mg tablet 10 mg PO DAILY 04/20/22 08/26/24 History hydrochlorothiazide 25 mg tablet 25 mg PO DAILY 04/20/22 08/26/24 History irbesartan 150 mg tablet 150 mg PO DAILY 04/20/22 08/26/24 History aspirin 81 mg tablet,delayed 81 mg PO DAILY 08/26/24 08/26/24 History release (Adult Aspirin Regimen) doxycycline monohydrate 50 mg 50 mg PO DAILY 08/26/24 08/26/24 History capsule furosemide 20 mg tablet 20 mg PO DAILY 08/26/24 08/26/24 History lovastatin 40 mg tablet 40 mg PO HS 08/26/24 08/26/24 History magnesium 200 mg tablet 400 mg PO DAILY 08/26/24 08/26/24 History multivitamin (Daily Multi-Vitamin 1 tablet PO DAILY 08/26/24 08/26/24 History tablet) omega 2-hfn-arm-fish oil 100 2 cap PO BID 08/26/24 08/26/24 History mg-160 mg-1,000 mg capsule (Fish Oil) pantoprazole 40 mg tablet,delayed 40 mg PO BID 08/26/24 08/26/24 History release propranolol 120 mg capsule,24 120 mg PO HS 08/26/24 08/26/24 History hr,extended release sucralfate 1 gram tablet 1 g PO .with meals and HS 08/26/24 08/26/24 History Allergies Allergy/AdvReac Type Severity Reaction Status Date / Time azithromycin Allergy Unknown Verified 08/26/24 00:59 ezetimibe (From Vytorin) Allergy Unknown Verified 08/26/24 00:59 simvastatin (From Vytorin) Allergy Unknown Verified 08/26/24 00:59 Vital Signs Vital Signs - 24 hr 08/28/24 07:56 08/28/24 08:00 08/28/24 08:00 Temperature 97.8 F Pulse Rate 73 66 98 Pulse Rate [Bilateral Pedal (Dorsalis Pedis) Palpation] Respiratory Rate 18 15 Blood Pressure 106/64 Pulse Oximetry 98 98 Oxygen Delivery CPAP Oxygen Flow Rate Fraction of Inspired Oxygen 50 08/28/24 08:56 08/28/24 10:00 08/28/24 11:30 Temperature Pulse Rate 66 101 H 106 H Pulse Rate [Bilateral Pedal (Dorsalis Pedis) Palpation] Respiratory Rate 15 16 Blood Pressure Pulse Oximetry 98 98 Oxygen Delivery CPAP CPAP Oxygen Flow Rate Fraction of Inspired Oxygen 08/28/24 12:00 08/28/24 12:00 08/28/24 12:00 Temperature 97.5 F L Pulse Rate 18 L 107 H Pulse Rate [Bilateral Pedal (Dorsalis Pedis) Palpation] Respiratory Rate 96 H Blood Pressure 112/60 Pulse Oximetry 99 Oxygen Delivery CPAP Oxygen Flow Rate Fraction of Inspired Oxygen 50 08/28/24 14:00 08/28/24 15:05 08/28/24 15:56 Temperature 98.1 F Pulse Rate 95 115 H 95 Pulse Rate [Bilateral Pedal (Dorsalis Pedis) Palpation] Respiratory Rate 16 16 Blood Pressure 128/77 Pulse Oximetry 98 99 Oxygen Delivery CPAP Oxygen Flow Rate Fraction of Inspired Oxygen 08/28/24 16:00 08/28/24 16:00 08/28/24 17:12 Temperature Pulse Rate 95 92 Pulse Rate [Bilateral Pedal (Dorsalis Pedis) Palpation] Respiratory Rate 16 Blood Pressure Pulse Oximetry 99 92 Oxygen Delivery CPAP High Flow Nasal Cannula Oxygen Flow Rate 6 Fraction of Inspired Oxygen 50 08/28/24 18:00 08/28/24 19:26 08/28/24 20:00 Temperature 98.2 F Pulse Rate 102 H 96 Pulse Rate [Bilateral Pedal (Dorsalis Pedis) Palpation] 86 Respiratory Rate 17 Blood Pressure 117/60 Pulse Oximetry 93 Oxygen Delivery Oxygen Flow Rate Fraction of Inspired Oxygen 08/28/24 20:00 08/28/24 20:00 08/28/24 20:06 Temperature Pulse Rate 96 106 H Pulse Rate [Bilateral Pedal (Dorsalis Pedis) Palpation] Respiratory Rate 20 Blood Pressure Pulse Oximetry 93 94 Oxygen Delivery High Flow Nasal Cannula High Flow Nasal Cannula Oxygen Flow Rate 6 5 Fraction of Inspired Oxygen 40 08/28/24 20:07 08/28/24 20:41 08/28/24 22:00 Temperature Pulse Rate 105 H 107 H 80 Pulse Rate [Bilateral Pedal (Dorsalis Pedis) Palpation] Respiratory Rate Blood Pressure Pulse Oximetry 96 Oxygen Delivery High Flow Nasal Cannula Oxygen Flow Rate Fraction of Inspired Oxygen 08/28/24 22:56 08/28/24 23:56 08/29/24 00:00 Temperature 98.0 F Pulse Rate 82 58 L 69 Pulse Rate [Bilateral Pedal (Dorsalis Pedis) Palpation] Respiratory Rate 20 17 Blood Pressure 103/52 L Pulse Oximetry 91 90 Oxygen Delivery High Flow Nasal Cannula Oxygen Flow Rate 5 Fraction of Inspired Oxygen 40 08/29/24 00:00 08/29/24 00:00 08/29/24 00:07 Temperature Pulse Rate 73 Pulse Rate [Bilateral Pedal (Dorsalis Pedis) Palpation] 69 Respiratory Rate 16 Blood Pressure Pulse Oximetry 90 94 Oxygen Delivery High Flow Nasal Cannula CPAP Oxygen Flow Rate 6 Fraction of Inspired Oxygen 08/29/24 02:00 08/29/24 03:15 08/29/24 03:51 Temperature 98.0 F Pulse Rate 86 62 87 Pulse Rate [Bilateral Pedal (Dorsalis Pedis) Palpation] Respiratory Rate 17 Blood Pressure 116/61 Pulse Oximetry 91 91 Oxygen Delivery High Flow Nasal Cannula Oxygen Flow Rate Fraction of Inspired Oxygen 08/29/24 03:52 08/29/24 03:53 08/29/24 04:00 Temperature Pulse Rate 80 Pulse Rate [Bilateral Pedal (Dorsalis Pedis) Palpation] 83 Respiratory Rate Blood Pressure Pulse Oximetry 91 Oxygen Delivery High Flow Nasal Cannula Oxygen Flow Rate 6 Fraction of Inspired Oxygen 08/29/24 04:19 08/29/24 06:00 Temperature Pulse Rate 85 78 Pulse Rate [Bilateral Pedal (Dorsalis Pedis) Palpation] Respiratory Rate 20 Blood Pressure Pulse Oximetry 94 Oxygen Delivery High Flow Nasal Cannula Oxygen Flow Rate 10 Fraction of Inspired Oxygen Exam Narrative: The patient has difficulty talking due to shortness of breath, and exhibits very congested cough. He is laying on his bed on a 45 degree angle. Lungs: Decreased breath sounds in both bases, bilateral crackles. Abdomen: Difficult to explore due to significant obesity, no tenderness. Results Labs 08/29/24 04:25 08/29/24 04:25 Labs: Short CBC 08/29/24 Range/Units 04:25 WBC 8.7 (4.5-10.0) K/mm3 Hgb 8.8 L (14.0-18.0) g/dL Hct 27.9 L (42.0-52.0) % Plt Count 111 L (150-375) k/mm3 BMP 08/29/24 04:25 Sodium 131 L Potassium 4.4 Chloride 95 L Carbon Dioxide 25 BUN 45 H Creatinine 4.20 H Glucose 121 H Calcium 8.6 Liver Function 08/28/24 Range/Units 04:35 Total Bilirubin 1.2 (0.2-1.3) mg/dL Direct Bilirubin 0.0 (0-0.3) mg/dL AST 343 H (17-59) U/L ALT 162 H (6-50) U/L Alkaline Phosphatase 86 (38-126) U/L Albumin 4.1 (3.5-5.1) g/dL
--- NOTE | 2024-08-29 07:42 | PM.PNCARD ---
Progress Note: A&P Assessment and Plan (1) Atrial fibrillation with rapid ventricular response: Code(s): I48.91 - Unspecified atrial fibrillation Status: Inactive (2) Acute on chronic diastolic heart failure: Code(s): I50.33 - Acute on chronic diastolic (congestive) heart failure Status: Acute Plan -AFib with RVR; history of paroxysmal nonvalvular AFib; not on anticoagulation due to peptic ulcer disease/recent polyp removal, also has risk of fall -Diastolic dysfunction, normal LVEF of 60-65% -Elevated troponin without chest pain-most likely demand ischemia secondary to tachycardia -Acute on chronic diastolic heart failure-symptoms of shortness of breath, elevated NT pro BNP, mild interstitial edema on chest x-ray -Alcohol abuse-on alcohol withdrawal protocol Plan: -Rates are not well controlled with Cardizem -Continue Cardizem 90 mg q.8 hours. Can discharge on LA Cardizem 240mg PO daily -He needs anticoagulation for AFib. However, given peptic ulcer disease, recent polyp removal, high risk for fall (fell multiple times in the past- alcohol abuse) and ICH, risks of anticoagulation outweigh benefits. Recommend outpatient consult for left atrial appendage occlusion -Check and replace electrolytes to keep potassium greater than 4 and magnesium greater than 2 -Continue home medications aspirin, statin, propranolol at home dose -Continue hydrochlorothiazide, amlodipine, irbesartan at home dose -Lasix 20 mg p.o. daily Cardiology will sign off. Please call us with any questions. Subjective Date/time seen: 08/29/24 07:42 Interval history: Reason for encounter: AFib with RVR; known history of AFib not currently on anticoagulation due to peptic ulcer disease, recent removal of polyp, risk of falls Interval history: No chest pain, shortness of breath. Telemetry shows AFib with controlled rates in the 60s. Review of Systems Cardiovascular: Comments: As mentioned in the HPI Respiratory: Comments: As mentioned in the HPI Exam Narrative: General: Alert oriented x3, no acute distress Neck: Supple, no JVD Chest: Bilaterally clear to auscultation, no rales or rhonchi Cardiac: S1, S2 +, irregularly irregular rhythm, no murmurs or rubs Extremities: No pedal edema, no skin rash Neurologic: Alert and oriented x3, no focal neurological deficits Objective Data Vital Signs Vital Signs: Vital Signs - 24 hr 08/28/24 07:56 08/28/24 08:00 08/28/24 08:00 Temperature 36.6 C Pulse Rate 73 66 98 Pulse Rate [Bilateral Pedal (Dorsalis Pedis) Palpation] Respiratory Rate 18 15 Blood Pressure 106/64 Pulse Oximetry 98 98 Oxygen Delivery CPAP Oxygen Flow Rate Fraction of Inspired Oxygen 50 08/28/24 08:56 08/28/24 10:00 08/28/24 11:30 Temperature Pulse Rate 66 101 H 106 H Pulse Rate [Bilateral Pedal (Dorsalis Pedis) Palpation] Respiratory Rate 15 16 Blood Pressure Pulse Oximetry 98 98 Oxygen Delivery CPAP CPAP Oxygen Flow Rate Fraction of Inspired Oxygen 08/28/24 12:00 08/28/24 12:00 08/28/24 12:00 Temperature 36.4 C L Pulse Rate 18 L 107 H Pulse Rate [Bilateral Pedal (Dorsalis Pedis) Palpation] Respiratory Rate 96 H Blood Pressure 112/60 Pulse Oximetry 99 Oxygen Delivery CPAP Oxygen Flow Rate Fraction of Inspired Oxygen 50 08/28/24 14:00 08/28/24 15:05 08/28/24 15:56 Temperature 36.7 C Pulse Rate 95 115 H 95 Pulse Rate [Bilateral Pedal (Dorsalis Pedis) Palpation] Respiratory Rate 16 16 Blood Pressure 128/77 Pulse Oximetry 98 99 Oxygen Delivery CPAP Oxygen Flow Rate Fraction of Inspired Oxygen 08/28/24 16:00 08/28/24 16:00 08/28/24 17:12 Temperature Pulse Rate 95 92 Pulse Rate [Bilateral Pedal (Dorsalis Pedis) Palpation] Respiratory Rate 16 Blood Pressure Pulse Oximetry 99 92 Oxygen Delivery CPAP High Flow Nasal Cannula Oxygen Flow Rate 6 Fraction of Inspired Oxygen 50 08/28/24 18:00 08/28/24 19:26 08/28/24 20:00 Temperature 36.8 C Pulse Rate 102 H 96 Pulse Rate [Bilateral Pedal (Dorsalis Pedis) Palpation] 86 Respiratory Rate 17 Blood Pressure 117/60 Pulse Oximetry 93 Oxygen Delivery Oxygen Flow Rate Fraction of Inspired Oxygen 08/28/24 20:00 08/28/24 20:00 08/28/24 20:06 Temperature Pulse Rate 96 106 H Pulse Rate [Bilateral Pedal (Dorsalis Pedis) Palpation] Respiratory Rate 20 Blood Pressure Pulse Oximetry 93 94 Oxygen Delivery High Flow Nasal Cannula High Flow Nasal Cannula Oxygen Flow Rate 6 5 Fraction of Inspired Oxygen 40 08/28/24 20:07 08/28/24 20:41 08/28/24 22:00 Temperature Pulse Rate 105 H 107 H 80 Pulse Rate [Bilateral Pedal (Dorsalis Pedis) Palpation] Respiratory Rate Blood Pressure Pulse Oximetry 96 Oxygen Delivery High Flow Nasal Cannula Oxygen Flow Rate Fraction of Inspired Oxygen 08/28/24 22:56 08/28/24 23:56 08/29/24 00:00 Temperature 36.7 C Pulse Rate 82 58 L 69 Pulse Rate [Bilateral Pedal (Dorsalis Pedis) Palpation] Respiratory Rate 20 17 Blood Pressure 103/52 L Pulse Oximetry 91 90 Oxygen Delivery High Flow Nasal Cannula Oxygen Flow Rate 5 Fraction of Inspired Oxygen 40 08/29/24 00:00 08/29/24 00:00 08/29/24 00:07 Temperature Pulse Rate 73 Pulse Rate [Bilateral Pedal (Dorsalis Pedis) Palpation] 69 Respiratory Rate 16 Blood Pressure Pulse Oximetry 90 94 Oxygen Delivery High Flow Nasal Cannula CPAP Oxygen Flow Rate 6 Fraction of Inspired Oxygen 08/29/24 02:00 08/29/24 03:15 08/29/24 03:51 Temperature 36.7 C Pulse Rate 86 62 87 Pulse Rate [Bilateral Pedal (Dorsalis Pedis) Palpation] Respiratory Rate 17 Blood Pressure 116/61 Pulse Oximetry 91 91 Oxygen Delivery High Flow Nasal Cannula Oxygen Flow Rate Fraction of Inspired Oxygen 08/29/24 03:52 08/29/24 03:53 08/29/24 04:00 Temperature Pulse Rate 80 Pulse Rate [Bilateral Pedal (Dorsalis Pedis) Palpation] 83 Respiratory Rate Blood Pressure Pulse Oximetry 91 Oxygen Delivery High Flow Nasal Cannula Oxygen Flow Rate 6 Fraction of Inspired Oxygen 08/29/24 04:19 08/29/24 06:00 08/29/24 07:38 Temperature Pulse Rate 85 78 Pulse Rate [Bilateral Pedal (Dorsalis Pedis) Palpation] Respiratory Rate 20 Blood Pressure Pulse Oximetry 94 93 Oxygen Delivery High Flow Nasal Cannula High Flow Nasal Cannula Oxygen Flow Rate 10 10 Fraction of Inspired Oxygen Intake/Output Intake/Output: Intake & Output 08/26/24 08/27/24 08/28/24 08/29/24 23:59 23:59 23:59 23:59 Intake Total 246.7 3135.8 470 50 Output Total 310 600 450 Balance 246.7 2825.8 -130 -400 Meds/Results Medications: Active Medications Generic Name Dose Route Start Last Admin Trade Name Freq PRN Reason Stop Dose Admin Acetaminophen 650 mg 08/26/24 06:26 08/28/24 16:54 Acetaminophen 325 Mg Tablet PO 650 mg Q4H PRN Administration Mild Pain (1-3) or Fever Al Hydrox/Mg Hydrox/Simethicone 30 ml 08/26/24 06:26 Mag Hydrox/Al Hydrox/Simeth 30 Ml Udc PO QID PRN Dyspepsia Amlodipine Besylate 10 mg 08/26/24 09:00 08/28/24 08:48 Amlodipine Besylate 10 Mg Tablet PO Not Given DAILY PA Bisacodyl 5 mg 08/26/24 06:26 Bisacodyl 5 Mg Tablet Ec PO DAILY PRN Constipation Chlordiazepoxide HCl 25 mg 08/28/24 09:00 08/28/24 20:41 Chlordiazepoxide (*Crx) 25 Mg Capsule PO 08/29/24 09:00 25 mg Q12HR PA Administration Diltiazem HCl 30 mg/ Diltiazem 90 mg 08/27/24 10:15 08/29/24 05:44 HCl 60 mg PO 90 mg Q8HR PA Administration Doxycycline Hyclate 50 mg 08/26/24 11:00 08/28/24 12:14 Doxycycline Hyclate 50 Mg Capsule PO 50 mg Q24H PA Administration Fish Oil 2 gm 08/26/24 09:00 08/28/24 16:54 [place] 3 Polyunsat Fatty Acids 1 Gm Cap PO 2 gm BID PA Administration Furosemide 20 mg 08/26/24 09:00 08/27/24 08:48 Furosemide 20 Mg Tablet PO 20 mg DAILY PA Administration Hydrochlorothiazide 25 mg 08/26/24 09:00 08/27/24 08:48 Hydrochlorothiazide 25 Mg Tablet PO 25 mg DAILY PA Administration Thiamine HCl 100 mg/ Folic 1,013.2 mls @ 75 mls/hr 08/26/24 10:00 08/28/24 10:32 Acid 1 mg/ Magnesium Sulfate 1 IVPB 75 mls/hr gm/ Multivitamins 5 ml/ Q24H PA Administration Multivitamins 5 ml/ Sodium Chloride Piperacillin Sod/Tazobactam 50 mls @ 100 mls/hr 08/27/24 18:00 08/29/24 05:44 Sod 3.375 gm/ Sodium Chloride IVPB 100 mls/hr Q6H PA Administration Irbesartan 150 mg 08/26/24 09:00 08/28/24 08:48 Irbesartan 150 Mg Tablet PO Not Given DAILY PA Lorazepam 2 mg 08/26/24 21:53 Lorazepam Inj (*Crx) 2 Mg/Ml Vial IV PUSH Q2H PRN CIWA > 15 Lorazepam 2 mg 08/26/24 21:53 08/27/24 10:08 Lorazepam Inj (*Crx) 2 Mg/Ml Vial IV PUSH 2 mg Q4H PRN Administration CIWA 8-15 Lovastatin 40 mg 08/26/24 21:00 08/28/24 20:41 Lovastatin 20 Mg Tablet PO 40 mg HS PA Administration Magnesium Oxide 400 mg 08/26/24 09:00 08/28/24 08:52 Magnesium Oxide 400 Mg Tablet PO 400 mg DAILY PA Administration Multivitamins Therapeutic 1 tablet 08/26/24 09:00 08/28/24 08:52 Multivitamins Therapeutic Tab (*Bkc) PO 1 tablet DAILY PA Administration Pantoprazole Sodium 40 mg 08/26/24 09:00 08/28/24 16:54 Pantoprazole 40 Mg Tablet PO 40 mg BID PA Administration Propranolol HCl 120 mg 08/26/24 21:00 08/28/24 20:41 Propranolol Hcl 60 Mg Capsule Cr PO 120 mg HS PA Administration Sodium Bicarbonate 650 mg 08/27/24 22:10 08/28/24 16:54 Sodium Bicarbonate Tab 650 Mg Tablet PO 650 mg BID PA Administration Sucralfate 1 gm 08/26/24 11:30 08/29/24 05:44 Sucralfate 1 Gm Tablet PO 1 gm ACHS PA Administration Radiology Results: ITS Impressions Chest X-Ray 08/27/24 14:28 IMPRESSION: Moderate pulmonary edema. Superimposed infection cannot be excluded. Airspace opacity in the right upper lung zone may represent pneumonia in appropriate clinical settings. Short-term follow-up chest radiograph is recommended after appropriate clinical therapy. Renal Ultrasound 08/28/24 09:25 IMPRESSION: No hydronephrosis or renal calculi. Findings suggesting medical renal disease. Abdomen Ultrasound 08/28/24 11:48 IMPRESSION: Limited evaluation of the pancreas secondary to overlying bowel gas. Trace perihepatic free fluid. Phasic flow within the portal vein. Hepatomegaly. Single static measurement of the common bile duct is 4 mm, a significant difference from recent CT examination for which MRCP (may be performed without intravenous contrast) is recommended for confirmation. Labs Labs: Laboratory Results - last 24 hr 08/28/24 08/28/24 08/28/24 04:35 07:56 11:51 WBC RBC Hgb Hct MCV MCH MCHC RDW Plt Count MPV % Immature Plt Fraction Sodium Potassium Chloride Carbon Dioxide Anion Gap BUN Creatinine Estim Creat Clear Calc Estimated GFR Glucose POC Capillary Glucose 114 H 115 H Calcium Magnesium Total Bilirubin 1.2 Direct Bilirubin 0.0 AST 343 H ALT 162 H Alkaline Phosphatase 86 Total Protein 8.0 Albumin 4.1 Urine Eosinophils U Random Total Protein Ur Random Sodium Ur Random Urea Urine Creatinine Protein/Creat Ratio 2 08/28/24 08/28/24 08/28/24 12:02 12:02 12:02 WBC RBC Hgb Hct MCV MCH MCHC RDW Plt Count MPV % Immature Plt Fraction Sodium Potassium Chloride Carbon Dioxide Anion Gap BUN Creatinine Estim Creat Clear Calc Estimated GFR Glucose POC Capillary Glucose Calcium Magnesium Total Bilirubin Direct Bilirubin AST ALT Alkaline Phosphatase Total Protein Albumin Urine Eosinophils None seen U Random Total Protein 73 72 Ur Random Sodium 29 Ur Random Urea 380 Urine Creatinine 145.4 143.2 Protein/Creat Ratio 2 0.50 H 08/28/24 08/29/24 08/29/24 16:16 04:25 06:07 WBC 8.7 RBC 2.64 L Hgb 8.8 L Hct 27.9 L MCV 105.7 H MCH 33.3 MCHC 31.5 L RDW 14.2 Plt Count 111 L MPV 10.3 % Immature Plt Fraction 5.5 Sodium 131 L Potassium 4.4 Chloride 95 L Carbon Dioxide 25 Anion Gap 11 BUN 45 H Creatinine 4.20 H Estim Creat Clear Calc 21 Estimated GFR 14 L Glucose 121 H POC Capillary Glucose 108 H 115 H Calcium 8.6 Magnesium 2.6 H Total Bilirubin Direct Bilirubin AST ALT Alkaline Phosphatase Total Protein Albumin Urine Eosinophils U Random Total Protein Ur Random Sodium Ur Random Urea Urine Creatinine Protein/Creat Ratio 2
[2024-08-29] MEDS: MAGNESIUM OXIDE 400 MG TABLET PO (10:05)
[2024-08-29] MEDS: OMEGA 3 POLYUNSAT FATTY ACIDS 1 GM CAP 2 GM PO ×2 (10:05→15:41)
[2024-08-29] MEDS: MULTIVITAMINS THERAPEUTIC TAB (*BKC) 1 TABLET PO (10:05)
[2024-08-29] MEDS: PANTOPRAZOLE 40 MG TABLET PO ×2 (10:06→15:41)
[2024-08-29] MEDS: SODIUM BICARBONATE TAB 650 MG TABLET PO ×2 (10:06→15:41)
[2024-08-29] MEDS: chlordiazePOXIDE (*CRX) 25 MG CAPSULE PO (10:06)
[2024-08-29] MEDS: DOXYCYCLINE HYCLATE 50 MG CAPSULE PO (13:22)
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
--- NOTE | 2024-08-29 14:50 | PM.IMPN ---
Progress Note: A&P Assessment and Plan (1) Acute on chronic diastolic heart failure: Code(s): I50.33 - Acute on chronic diastolic (congestive) heart failure Status: Acute (2) Elevated troponin: Code(s): R79.89 - Other specified abnormal findings of blood chemistry Status: Inactive (3) Demand ischemia: Code(s): I24.89 - Other forms of acute ischemic heart disease Status: Inactive (4) Atrial fibrillation with rapid ventricular response: Code(s): I48.91 - Unspecified atrial fibrillation Status: Inactive (5) CHF (congestive heart failure): Qualifiers: Heart failure chronicity: acute Heart failure type: unspecified Qualified Code(s): I50.9 - Heart failure, unspecified Code(s): I50.9 - Heart failure, unspecified Status: Inactive (6) Alcohol abuse: Code(s): F10.10 - Alcohol abuse, uncomplicated Status: Acute Plan Afib with RVR ECHO showed normal EF 60-65% Continue cardizem 90mg Q8, discharge on 240mg daily Patient not on Anticoagulation due to PUD; LAAO outpatient cardiology following Pneumonia CXR reviewed continue Zosyn and Doxycycline Monitor cultures Elevated troponin Likely demand ischemia PATRICA Cr 4.2, baseline normal Contineu IVF, US renal no obstruciton Nephrology following Hematuria CT AP ordered and urology consulted Alcoholic hepatitis with possible Liver cirrhosis Per Gi eval patient qualifies steroid Started prednisone ALT 162/AST 343 GI following Alcohol withdrawal LAD 3/ continue CIWA protocol monitor GI evaluated and noted no ignificant bile duct dilation, no mRCP recommended DVT prophylaxis on SCDs Subjective Date/time seen: 08/29/24 14:50 Interval history: Comfortable at bedside Started having hematuria, urology consulted Review of Systems Review of Systems: As per HPI Exam Narrative: Morbidly obese Patient is comfortable, NAD HEENT: eyes are clear and none icteric LUNGS: Irregularly irregular tachy HEART: RR S1S2 ABD: BS+, Soft and nontender Lower extremities: no edema SKIN: nonjaundiced Neuro: grossly intact. Objective Data Vital Signs Vital Signs: Vital Signs - 24 hr 08/28/24 15:05 08/28/24 15:56 08/28/24 16:00 Temperature 98.1 F Pulse Rate 115 H 95 95 Pulse Rate [Bilateral Pedal (Dorsalis Pedis) Palpation] Respiratory Rate 16 16 16 Blood Pressure 128/77 Pulse Oximetry 98 99 99 Oxygen Delivery CPAP CPAP Oxygen Flow Rate Fraction of Inspired Oxygen 50 08/28/24 16:00 08/28/24 17:12 08/28/24 18:00 Temperature Pulse Rate 92 102 H Pulse Rate [Bilateral Pedal (Dorsalis Pedis) Palpation] Respiratory Rate Blood Pressure Pulse Oximetry 92 Oxygen Delivery High Flow Nasal Cannula Oxygen Flow Rate 6 Fraction of Inspired Oxygen 08/28/24 19:26 08/28/24 20:00 08/28/24 20:00 Temperature 98.2 F Pulse Rate 96 Pulse Rate [Bilateral Pedal (Dorsalis Pedis) Palpation] 86 Respiratory Rate 17 Blood Pressure 117/60 Pulse Oximetry 93 93 Oxygen Delivery High Flow Nasal Cannula Oxygen Flow Rate 6 Fraction of Inspired Oxygen 08/28/24 20:00 08/28/24 20:06 08/28/24 20:07 Temperature Pulse Rate 96 106 H 105 H Pulse Rate [Bilateral Pedal (Dorsalis Pedis) Palpation] Respiratory Rate 20 Blood Pressure Pulse Oximetry 94 96 Oxygen Delivery High Flow Nasal Cannula High Flow Nasal Cannula Oxygen Flow Rate 5 Fraction of Inspired Oxygen 40 08/28/24 20:41 08/28/24 22:00 08/28/24 22:56 Temperature Pulse Rate 107 H 80 82 Pulse Rate [Bilateral Pedal (Dorsalis Pedis) Palpation] Respiratory Rate 20 Blood Pressure Pulse Oximetry 91 Oxygen Delivery High Flow Nasal Cannula Oxygen Flow Rate 5 Fraction of Inspired Oxygen 40 08/28/24 23:56 08/29/24 00:00 08/29/24 00:00 Temperature 98.0 F Pulse Rate 58 L 69 Pulse Rate [Bilateral Pedal (Dorsalis Pedis) Palpation] 69 Respiratory Rate 17 Blood Pressure 103/52 L Pulse Oximetry 90 Oxygen Delivery Oxygen Flow Rate Fraction of Inspired Oxygen 08/29/24 00:00 08/29/24 00:07 08/29/24 02:00 Temperature Pulse Rate 73 86 Pulse Rate [Bilateral Pedal (Dorsalis Pedis) Palpation] Respiratory Rate 16 Blood Pressure Pulse Oximetry 90 94 Oxygen Delivery High Flow Nasal Cannula CPAP Oxygen Flow Rate 6 Fraction of Inspired Oxygen 08/29/24 03:15 08/29/24 03:51 08/29/24 03:52 Temperature 98.0 F Pulse Rate 62 87 Pulse Rate [Bilateral Pedal (Dorsalis Pedis) Palpation] 83 Respiratory Rate 17 Blood Pressure 116/61 Pulse Oximetry 91 91 Oxygen Delivery High Flow Nasal Cannula Oxygen Flow Rate Fraction of Inspired Oxygen 08/29/24 03:53 08/29/24 04:00 08/29/24 04:19 Temperature Pulse Rate 80 85 Pulse Rate [Bilateral Pedal (Dorsalis Pedis) Palpation] Respiratory Rate 20 Blood Pressure Pulse Oximetry 91 94 Oxygen Delivery High Flow Nasal Cannula High Flow Nasal Cannula Oxygen Flow Rate 6 10 Fraction of Inspired Oxygen 08/29/24 06:00 08/29/24 07:38 08/29/24 08:00 Temperature Pulse Rate 78 78 Pulse Rate [Bilateral Pedal (Dorsalis Pedis) Palpation] Respiratory Rate 20 Blood Pressure Pulse Oximetry 93 93 Oxygen Delivery High Flow Nasal Cannula High Flow Nasal Cannula Oxygen Flow Rate 10 6 Fraction of Inspired Oxygen 40 08/29/24 08:00 08/29/24 08:00 08/29/24 10:00 Temperature 98.5 F Pulse Rate 74 69 76 Pulse Rate [Bilateral Pedal (Dorsalis Pedis) Palpation] Respiratory Rate 24 H Blood Pressure 106/57 L Pulse Oximetry 89 L Oxygen Delivery Oxygen Flow Rate Fraction of Inspired Oxygen 08/29/24 12:00 08/29/24 14:25 Temperature 98.3 F Pulse Rate 79 Pulse Rate [Bilateral Pedal (Dorsalis Pedis) Palpation] Respiratory Rate 28 H Blood Pressure 115/62 Pulse Oximetry 90 92 Oxygen Delivery High Flow Nasal Cannula Oxygen Flow Rate 15 Fraction of Inspired Oxygen Intake/Output Intake/Output: Intake & Output 08/26/24 08/27/24 08/28/24 08/29/24 23:59 23:59 23:59 23:59 Intake Total 246.7 3135.8 470 220 Output Total 310 600 450 Balance 246.7 2825.8 -130 -230 Meds/Results Medications: Active Medications Generic Name Dose Route Start Last Admin Trade Name Freq PRN Reason Stop Dose Admin Acetaminophen 650 mg 08/26/24 06:26 08/28/24 16:54 Acetaminophen 325 Mg Tablet PO 650 mg Q4H PRN Administration Mild Pain (1-3) or Fever Al Hydrox/Mg Hydrox/Simethicone 30 ml 08/26/24 06:26 Mag Hydrox/Al Hydrox/Simeth 30 Ml Udc PO QID PRN Dyspepsia Amlodipine Besylate 10 mg 08/26/24 09:00 08/28/24 08:48 Amlodipine Besylate 10 Mg Tablet PO Not Given DAILY PA Bisacodyl 5 mg 08/26/24 06:26 Bisacodyl 5 Mg Tablet Ec PO DAILY PRN Constipation Diltiazem HCl 30 mg/ Diltiazem 90 mg 08/27/24 10:15 08/29/24 05:44 HCl 60 mg PO 90 mg Q8HR PA Administration Doxycycline Hyclate 50 mg 08/26/24 11:00 08/29/24 13:22 Doxycycline Hyclate 50 Mg Capsule PO 50 mg Q24H PA Administration Fish Oil 2 gm 08/26/24 09:00 08/29/24 10:05 [place] 3 Polyunsat Fatty Acids 1 Gm Cap PO 2 gm BID PA Administration Folic Acid 1 mg 08/29/24 12:55 Folic Acid 1 Mg Tablet PO DAILY PA Furosemide 20 mg 08/26/24 09:00 08/27/24 08:48 Furosemide 20 Mg Tablet PO 20 mg DAILY PA Administration Hydrochlorothiazide 25 mg 08/26/24 09:00 08/27/24 08:48 Hydrochlorothiazide 25 Mg Tablet PO 25 mg DAILY PA Administration Piperacillin Sod/Tazobactam 50 mls @ 100 mls/hr 08/27/24 18:00 08/29/24 13:19 Sod 3.375 gm/ Sodium Chloride IVPB 100 mls/hr Q6H PA Administration Irbesartan 150 mg 08/26/24 09:00 08/28/24 08:48 Irbesartan 150 Mg Tablet PO Not Given DAILY PA Lorazepam 2 mg 08/26/24 21:53 Lorazepam Inj (*Crx) 2 Mg/Ml Vial IV PUSH Q2H PRN CIWA > 15 Lorazepam 2 mg 08/26/24 21:53 08/27/24 10:08 Lorazepam Inj (*Crx) 2 Mg/Ml Vial IV PUSH 2 mg Q4H PRN Administration CIWA 8-15 Lovastatin 40 mg 08/26/24 21:00 08/28/24 20:41 Lovastatin 20 Mg Tablet PO 40 mg HS PA Administration Magnesium Oxide 400 mg 08/26/24 09:00 08/29/24 10:05 Magnesium Oxide 400 Mg Tablet PO 400 mg DAILY PA Administration Multivitamins Therapeutic 1 tablet 08/26/24 09:00 08/29/24 10:05 Multivitamins Therapeutic Tab (*Bkc) PO 1 tablet DAILY PA Administration Pantoprazole Sodium 40 mg 08/26/24 09:00 08/29/24 10:06 Pantoprazole 40 Mg Tablet PO 40 mg BID PA Administration Propranolol HCl 120 mg 08/26/24 21:00 08/28/24 20:41 Propranolol Hcl 60 Mg Capsule Cr PO 120 mg HS PA Administration Sodium Bicarbonate 650 mg 08/27/24 22:10 08/29/24 10:06 Sodium Bicarbonate Tab 650 Mg Tablet PO 650 mg BID PA Administration Sucralfate 1 gm 08/26/24 11:30 08/29/24 13:22 Sucralfate 1 Gm Tablet PO 1 gm ACHS PA Administration Thiamine HCl 100 mg 08/29/24 12:55 Thiamine Hcl 100 Mg Tablet PO QAM REPLACED BY [facility] Radiology Results: ITS Impressions Chest X-Ray 08/27/24 14:28 IMPRESSION: Moderate pulmonary edema. Superimposed infection cannot be excluded. Airspace opacity in the right upper lung zone may represent pneumonia in appropriate clinical settings. Short-term follow-up chest radiograph is recommended after appropriate clinical therapy. Renal Ultrasound 08/28/24 09:25 IMPRESSION: No hydronephrosis or renal calculi. Findings suggesting medical renal disease. Abdomen Ultrasound 08/28/24 11:48 IMPRESSION: Limited evaluation of the pancreas secondary to overlying bowel gas. Trace perihepatic free fluid. Phasic flow within the portal vein. Hepatomegaly. Single static measurement of the common bile duct is 4 mm, a significant difference from recent CT examination for which MRCP (may be performed without intravenous contrast) is recommended for confirmation. Labs Labs: Laboratory Results - last 24 hr 08/28/24 08/29/24 08/29/24 16:16 04:25 06:07 WBC 8.7 RBC 2.64 L Hgb 8.8 L Hct 27.9 L MCV 105.7 H MCH 33.3 MCHC 31.5 L RDW 14.2 Plt Count 111 L MPV 10.3 % Immature Plt Fraction 5.5 Sodium 131 L Potassium 4.4 Chloride 95 L Carbon Dioxide 25 Anion Gap 11 BUN 45 H Creatinine 4.20 H Estim Creat Clear Calc 21 Estimated GFR 14 L Glucose 121 H POC Capillary Glucose 108 H 115 H Calcium 8.6 Magnesium 2.6 H 08/29/24 12:09 WBC RBC Hgb Hct MCV MCH MCHC RDW Plt Count MPV % Immature Plt Fraction Sodium Potassium Chloride Carbon Dioxide Anion Gap BUN Creatinine Estim Creat Clear Calc Estimated GFR Glucose POC Capillary Glucose 131 H Calcium Magnesium Quality VTE Prophylaxis VTE prophylaxis: mechanical ordered
[2024-08-29] MEDS: THIAMINE HCL 100 MG TABLET PO (15:40)
[2024-08-29] MEDS: FOLIC ACID 1 MG TABLET PO (15:40)
--- NOTE | 2024-08-29 16:14 | WPDURCON ---
Assessment and Plan Assessment and plan (1) Acute kidney injury: Code(s): N17.9 - Acute kidney failure, unspecified Status: Acute (2) Gross hematuria: Code(s): R31.0 - Gross hematuria Status: Acute Plan 63y old with gross hematuria after catheter placement in the setting of etoh withdrawal and ams. -likely jackson trauma from tugging/insertion. -jackson flushed at bedside by Dr. Camargo with no clots on return. -flush jackson prn -continue to monitor urine for clots and appropriate output -ROCCO on 08/28/2024 reveals No hydronephrosis or renal calculi. Findings suggesting medical renal disease. -cr 4.20. neph consulted. -ua not concerning for infection from 08/26 Urology Consult Note HPI Date Seen: 08/29/24 Requesting Physician: Johana Thompson DO Primary Care Provider: Kel Hope MD Consult Narrative Narrative: Jose Davidson is a 63 year old male s a 63-year-old male with known AFib and off his Eliquis at this time for peptic ulcer disease /recent polyp removal here with shortness of breath and a ground level fall at home. EMS was called for a lift assist and further found him to be short of breath and tachycardic and brought him to the emergency room for evaluation. Patient was post have a electric cardioversion of his AFib in the near future. patient was seen by parimutuel ticket cashier suspect patient has demand ischemia due to A. Fib RVR and does not have ACS, however patient in not on any anticoagulation for the A .fib. Patient with history daily 6 drinks and last drinks was 2 days ago and currently patient is in withdrawal, patient is given Ativan 2mg IV x1, place the patient on Librium 50mg q6 Ana Cristina, and started the patient on banana bag, to provide thiamin and multiple vitamin, will monitor patient with CIWA protocol. Since having catheter placed he has developed gross hematuria for which we were consulted. Review of Systems Review of Systems: ROS unobtainable: Yes unobtainable due to mental status PMFSH Past Medical History Medical History (Updated 08/29/24 @ 16:27 by Elaine Olsen, ANGÉLICA) GERD (gastroesophageal reflux disease) Hyperlipidemia Hypertension Alcohol abuse Hypermagnesemia Family History Family History Father Acute myocardial infarction Mother Cerebrovascular accident Social History Social History Smoking packs per day: 2 Smoking cigarettes per day: 40.0 Years smoked: 30 Smoking pack-years: 60.00 Smoking status: Former smoker Tobacco type: cigarettes Second hand tobacco smoke exposure: No Smoking end date: 02/20/06 Alcohol intake: current Drinks per week: 48 Substance use: unknown Substance use type: does not use Do You Feel Safe in your Home?: Yes Lack of Transportation: No Lack of Food: Never True Current Housing: I Have Housing Concerned About Future Housing: No Difficulty Paying Gas/Electric Bills: No Difficulty Paying for Meds: No Currently Unemployed: No Education: Trade/Vocational Certificate Difficulty w/ Childcare or Family Care: No Gender identity (if verbalized by the patient): Male Sexual Orientation (if Verbalized by the Patient): Straight or Heterosexual Spiritual care concerns: No Meds Home Medications and Allergies Home Medications ?Medication ?Instructions ?Recorded ?Confirmed ?Type amlodipine 10 mg tablet 10 mg PO DAILY 04/20/22 08/26/24 History hydrochlorothiazide 25 mg tablet 25 mg PO DAILY 04/20/22 08/26/24 History irbesartan 150 mg tablet 150 mg PO DAILY 04/20/22 08/26/24 History aspirin 81 mg tablet,delayed 81 mg PO DAILY 08/26/24 08/26/24 History release (Adult Aspirin Regimen) doxycycline monohydrate 50 mg 50 mg PO DAILY 08/26/24 08/26/24 History capsule furosemide 20 mg tablet 20 mg PO DAILY 08/26/24 08/26/24 History lovastatin 40 mg tablet 40 mg PO HS 08/26/24 08/26/24 History magnesium 200 mg tablet 400 mg PO DAILY 08/26/24 08/26/24 History multivitamin (Daily Multi-Vitamin 1 tablet PO DAILY 08/26/24 08/26/24 History tablet) omega 4-zlj-evs-fish oil 100 2 cap PO BID 08/26/24 08/26/24 History mg-160 mg-1,000 mg capsule (Fish Oil) pantoprazole 40 mg tablet,delayed 40 mg PO BID 08/26/24 08/26/24 History release propranolol 120 mg capsule,24 120 mg PO HS 08/26/24 08/26/24 History hr,extended release sucralfate 1 gram tablet 1 g PO .with meals and HS 08/26/24 08/26/24 History Allergies Allergy/AdvReac Type Severity Reaction Status Date / Time azithromycin Allergy Unknown Verified 08/26/24 00:59 ezetimibe (From Vytorin) Allergy Unknown Verified 08/26/24 00:59 simvastatin (From Vytorin) Allergy Unknown Verified 08/26/24 00:59 Vital Signs Vital Signs - 24 hr 08/28/24 17:12 08/28/24 18:00 08/28/24 19:26 Temperature 98.2 F Pulse Rate 102 H 96 Pulse Rate [Bilateral Pedal (Dorsalis Pedis) Palpation] Respiratory Rate 17 Blood Pressure 117/60 Pulse Oximetry 92 93 Oxygen Delivery High Flow Nasal Cannula Oxygen Flow Rate 6 Fraction of Inspired Oxygen 08/28/24 20:00 08/28/24 20:00 08/28/24 20:00 Temperature Pulse Rate 96 Pulse Rate [Bilateral Pedal (Dorsalis Pedis) Palpation] 86 Respiratory Rate Blood Pressure Pulse Oximetry 93 Oxygen Delivery High Flow Nasal Cannula Oxygen Flow Rate 6 Fraction of Inspired Oxygen 08/28/24 20:06 08/28/24 20:07 08/28/24 20:41 Temperature Pulse Rate 106 H 105 H 107 H Pulse Rate [Bilateral Pedal (Dorsalis Pedis) Palpation] Respiratory Rate 20 Blood Pressure Pulse Oximetry 94 96 Oxygen Delivery High Flow Nasal Cannula High Flow Nasal Cannula Oxygen Flow Rate 5 Fraction of Inspired Oxygen 40 08/28/24 22:00 08/28/24 22:56 08/28/24 23:56 Temperature 98.0 F Pulse Rate 80 82 58 L Pulse Rate [Bilateral Pedal (Dorsalis Pedis) Palpation] Respiratory Rate 20 17 Blood Pressure 103/52 L Pulse Oximetry 91 90 Oxygen Delivery High Flow Nasal Cannula Oxygen Flow Rate 5 Fraction of Inspired Oxygen 40 08/29/24 00:00 08/29/24 00:00 08/29/24 00:00 Temperature Pulse Rate 69 Pulse Rate [Bilateral Pedal (Dorsalis Pedis) Palpation] 69 Respiratory Rate Blood Pressure Pulse Oximetry 90 Oxygen Delivery High Flow Nasal Cannula Oxygen Flow Rate 6 Fraction of Inspired Oxygen 08/29/24 00:07 08/29/24 02:00 08/29/24 03:15 Temperature Pulse Rate 73 86 62 Pulse Rate [Bilateral Pedal (Dorsalis Pedis) Palpation] Respiratory Rate 16 Blood Pressure Pulse Oximetry 94 91 Oxygen Delivery CPAP High Flow Nasal Cannula Oxygen Flow Rate Fraction of Inspired Oxygen 08/29/24 03:51 08/29/24 03:52 08/29/24 03:53 Temperature 98.0 F Pulse Rate 87 Pulse Rate [Bilateral Pedal (Dorsalis Pedis) Palpation] 83 Respiratory Rate 17 Blood Pressure 116/61 Pulse Oximetry 91 91 Oxygen Delivery High Flow Nasal Cannula Oxygen Flow Rate 6 Fraction of Inspired Oxygen 08/29/24 04:00 08/29/24 04:19 08/29/24 06:00 Temperature Pulse Rate 80 85 78 Pulse Rate [Bilateral Pedal (Dorsalis Pedis) Palpation] Respiratory Rate 20 Blood Pressure Pulse Oximetry 94 Oxygen Delivery High Flow Nasal Cannula Oxygen Flow Rate 10 Fraction of Inspired Oxygen 08/29/24 07:38 08/29/24 08:00 08/29/24 08:00 Temperature Pulse Rate 78 74 Pulse Rate [Bilateral Pedal (Dorsalis Pedis) Palpation] Respiratory Rate 20 Blood Pressure Pulse Oximetry 93 93 Oxygen Delivery High Flow Nasal Cannula High Flow Nasal Cannula Oxygen Flow Rate 10 6 Fraction of Inspired Oxygen 40 08/29/24 08:00 08/29/24 10:00 08/29/24 12:00 Temperature 98.5 F 98.3 F Pulse Rate 69 76 79 Pulse Rate [Bilateral Pedal (Dorsalis Pedis) Palpation] Respiratory Rate 24 H 28 H Blood Pressure 106/57 L 115/62 Pulse Oximetry 89 L 90 Oxygen Delivery Oxygen Flow Rate Fraction of Inspired Oxygen 08/29/24 12:00 08/29/24 14:25 08/29/24 15:55 Temperature Pulse Rate 78 78 Pulse Rate [Bilateral Pedal (Dorsalis Pedis) Palpation] Respiratory Rate 20 20 Blood Pressure Pulse Oximetry 93 92 93 Oxygen Delivery High Flow Nasal Cannula High Flow Nasal Cannula High Flow Nasal Cannula Oxygen Flow Rate 15 15 12 Fraction of Inspired Oxygen 40 40 Exam Const: General: no acute distress Eyes: General: appearance normal, both eyes and all related structures Resp: Effort & Inspection: normal respiratory effort Urinary Catheter: Urinary Catheter: urine red Skin: General skin exam: normal color Psych: Other: ams Results Labs 08/29/24 04:25 08/29/24 04:25 Labs: Short CBC 08/29/24 Range/Units 04:25 WBC 8.7 (4.5-10.0) K/mm3 Hgb 8.8 L (14.0-18.0) g/dL Hct 27.9 L (42.0-52.0) % Plt Count 111 L (150-375) k/mm3 [facility] 08/29/24 04:25 Sodium 131 L Potassium 4.4 Chloride 95 L Carbon Dioxide 25 BUN 45 H Creatinine 4.20 H Glucose 121 H Calcium 8.6
[2024-08-29 17:45] LABS: Alveolar/Arterial O2 Gradient 383.8 mmHg; Fractional Inspired Oxygen 70 %; HCO3 ABG 25.9 mEq/l (22.0-26.0); Oxygen Content ABG 12.6 %vol (16.0-22.0); Oxygen Saturation ABG 92.9 % (95.0-100.0); PCO2 ABG 44.9 mmHg (35.0-45.0); PO2 ABG 67.0 mmHg (80.0-100.0); PO2 FiO2 Ratio Arterial Blood 0.96 %
[2024-08-29 17:47] LABS: Site Drawn LEFT RADIAL
[2024-08-29 17:48] LABS: Non-Invasive Expiratory Pressure 8 CMH2O; Non-Invasive Inspiratory Pressure 14 CMH2O; Non-Invasive Vent Rate 12 /MIN
[2024-08-29] MEDS: FUROSEMIDE INJ 40 MG/4 ML VIAL IV PUSH (18:17)
[2024-08-29] MEDS: NACL 0.9% IRRIGATION POUR BOTTLE 500 ML (20:17)
[2024-08-30] VITALS (23 sets, daily range): BP systolic 114–147; BP diastolic 62–95; PULSE 68–131; RESP 13–24; TEMP 36.2–37; O2SAT 92–95
[2024-08-30] MEDS: PIPERACILLIN/TAZOBACTAM SOD 3.375 GM in SODIUM CHLORIDE 0.9% IV 50 ML 100 ML IVPB ×4 (01:16→21:15)
[2024-08-30 04:28] LABS: Hematocrit 28.6 % (42.0-52.0); Hemoglobin 8.9 g/dL (14.0-18.0); Immature Granulocyte Percent A 0.8 % (0-0.5); Immature Platelet Fraction Pct 5.3 % (0.9-11.2); Lymphocytes Absolute Auto 0.62 K/mm3 (0.9-3.2); Mean Corpuscular HGB Conc 31.1 g/dl (32-36); Mean Corpuscular Hemoglobin 33.5 pg (26-34); Mean Corpuscular Volume 107.5 fl (80-100); Nucleated Red Blood Cells Absolute Auto 0.000 K/mm3 (0.0-0.012); Nucleated Red Blood Cells Perc 0.0 % (0.0-0.2); Platelet Count Result 109 k/mm3 (150-375); Red Blood Count 2.66 M/mm3 (4.6-6.20); White Blood Count 7.5 K/mm3 (4.5-10.0)
[2024-08-30 04:37] LABS: Alanine Aminotransferase 108 U/L (6-50); Albumin Level 3.7 g/dL (3.5-5.1); Alkaline Phosphatase 77 U/L (38-126); Anion Gap 10 mmol/L (4-12); Aspartate Amino Transferase 138 U/L (17-59); Bilirubin,Total 1.3 mg/dL (0.2-1.3); Blood Urea Nitrogen 47 mg/dL (9-20); Calcium 8.7 mg/dL (8.4-10.2); Carbon Dioxide 28 mmol/L (22-30); Chloride 95 mmol/L (98-107); Estimated CRCL calculation 24 ml/min; Estimated Glomerular Filt Rate 17; Glucose 119 mg/dL (65-110); Magnesium 2.5 mg/dL (1.6-2.3); Potassium 3.9 mmol/L (3.4-5.0); Sodium 133 mmol/L (137-145); Total Protein 7.8 g/dL (6.3-8.2)
[2024-08-30] MEDS: FUROSEMIDE INJ 40 MG/4 ML VIAL IV PUSH ×2 (10:50→17:23)
[2024-08-30] MEDS: PANTOPRAZOLE SODIUM IV 40 MG VIAL IV PUSH ×2 (10:50→21:15)
[2024-08-30] MEDS: THIAMINE HCL 200 MG/2 ML VIAL 100 MG IV PUSH (10:51)
[2024-08-30] MEDS: FOLIC ACID 1 MG/0.2 ML INJ IV PUSH (10:54)
[2024-08-30] MEDS: LORazepam INJ (*CRX) 2 MG/ML VIAL IV PUSH ×2 (10:55→19:50)
--- NOTE | 2024-08-30 11:54 | P.PNNP_ITS ---
Progress Note: A&P Assessment and Plan (1) Acute kidney injury: Code(s): N17.9 - Acute kidney failure, unspecified Status: Acute Assessment and Plan: * slow improvement noted * possible peak/plateau of creatinine at 4.6mg/dl * deterioration noted since 08/28/23 * renal function/creatinine at baseline on admission: * baseline creatinine seems to run ~ 1.1 - 1.4mg/dl in the last few years * creatinine 1.28mg/dl on admission * suspect multifactorial: * afib with RVR * relative hypotension * medications prior to admission (ARB + diuretics) * contrast exposure (CTA chest on 08/26) * CHF exacerbation * other(?) * evaluation to date noted: * urine electrolytes prerenal * urine eosinophils negative * mild proteinuria * UA without evidence of infection * CPK elevated (but not enough to affect kidney function) * renal ultrasound okay * better urine output noted * optimize hemodynamics * follow trend of repeat labs and UOP (2) Atrial fibrillation with rapid ventricular response: Code(s): I48.91 - Unspecified atrial fibrillation Status: Acute Assessment and Plan: * as noted on presentation * rate control strategy - on oral cardizem * not on anticoagulation due to peptic ulcer disease * Echo (08/26) noted: * left ventricular systolic function is normal, estimated at 60-65% * left ventricular diastolic function is abnormal * mild mitral valve regurgitation * mild tricuspid valve regurgitation * mild pulmonary hypertension, estimated pulmonary arterial systolic pressure is 37 mmHg. * Cardiology following (3) Pneumonia: Code(s): J18.9 - Pneumonia, unspecified organism Status: Acute Assessment and Plan: * admission CXR noted * follow culture data * on antibiotics (4) Alcoholic hepatitis: Code(s): K70.10 - Alcoholic hepatitis without ascites Status: Acute Assessment and Plan: * GI following * complicated by liver cirrhosis * started on prednisone * continue supportive therapy (5) Anemia: Code(s): D64.9 - Anemia, unspecified Status: Acute Assessment and Plan: * due to PATRICA and acute illness * hematuria maybe playing a role as well... * follow trend of H/H (6) Gross hematuria: Code(s): R31.0 - Gross hematuria Status: Acute Assessment and Plan: * Urology following * suspect secondary to jackson trauma * continue jackson catheter Will continue to follow. Subjective Date/time seen: 08/30/24 11:54 Interval history: Follow-up for acute kidney injury/acute renal failure. No new issues or problems to report when seen, no events overnight per staff; renal function/creatinine continues to slowly improve in association with better urine output; no apparent distress noted at the time of my visit; due to CT scan findings, initiated on IV diuretics. Exam Narrative: General: WD/WN male in NAD Heart: IRRR, normal S1 and S2; no rub Lungs: coarse breath sounds Abdomen: soft, nontender, nondistended, positive bowel sounds Extremities: no cyanosis or clubbing; no edema Skin: warm and dry Objective Data Vital Signs Vital Signs: Vital Signs Temp Pulse Pulse Resp BP Pulse Ox O2 Del Method 08/30/24 11:33 97.2 F L 101 H 24 H 126/62 92 08/30/24 08:40 86 13 95 BiPAP 08/30/24 08:00 95 08/30/24 08:00 98.4 F 94 21 H 114/68 94 08/30/24 06:00 93 08/30/24 04:00 97.8 F 88 20 117/74 94 08/30/24 04:00 88 08/30/24 04:00 88 94 BiPAP 08/30/24 04:00 88 08/30/24 02:25 86 16 93 08/30/24 02:00 68 08/30/24 00:00 86 08/30/24 00:00 94 BiPAP 08/30/24 00:00 97.7 F 84 20 118/78 94 08/29/24 22:00 62 08/29/24 21:16 80 08/29/24 20:52 87 34 H 92 08/29/24 20:00 65 08/29/24 20:00 78 97 BiPAP 08/29/24 20:00 74 08/29/24 20:00 97.7 F 66 23 H 119/61 91 08/29/24 18:00 66 Intake/Output Intake/Output: Intake & Output 08/27/24 08/28/24 08/29/24 08/30/24 23:59 23:59 23:59 23:59 Intake Total 3135.8 470 1110 100 Output Total 310 221 861 5944 Balance 2825.8 -130 160 -3550 Meds/Results Medications: Active Medications Generic Name Dose Route Start Last Admin Trade Name Freq PRN Reason Stop Dose Admin Acetaminophen 650 mg 08/26/24 06:26 08/30/24 17:21 Acetaminophen 325 Mg Tablet PO 650 mg Q4H PRN Administration Mild Pain (1-3) or Fever Acetylcysteine 200 mg 08/30/24 14:00 08/30/24 13:50 Acetylcysteine 20% Inhal Soln 800 Mg/4 Ml Vial INHALATION 200 mg Q6HRT PA Administration Al Hydrox/Mg Hydrox/Simethicone 30 ml 08/26/24 06:26 Mag Hydrox/Al Hydrox/Simeth 30 Ml Udc PO QID PRN Dyspepsia Amlodipine Besylate 10 mg 08/26/24 09:00 08/28/24 08:48 Amlodipine Besylate 10 Mg Tablet PO Not Given DAILY PA Bisacodyl 5 mg 08/26/24 06:26 08/30/24 17:22 Bisacodyl 5 Mg Tablet Ec PO 5 mg DAILY PRN Administration Constipation Diltiazem HCl 30 mg/ Diltiazem 90 mg 08/27/24 10:15 08/30/24 14:22 HCl 60 mg PO Not Given Q8HR [facility] Fish Oil 2 gm 08/26/24 09:00 08/30/24 17:22 [place] 3 Polyunsat Fatty Acids 1 Gm Cap PO 2 gm BID PA Administration Folic Acid 1 mg 08/29/24 12:55 08/30/24 10:42 Folic Acid 1 Mg Tablet PO Not Given DAILY AP Furosemide 20 mg 08/26/24 09:00 08/27/24 08:48 Furosemide 20 Mg Tablet PO 20 mg DAILY PA Administration Furosemide 40 mg 08/30/24 10:25 08/30/24 17:23 Furosemide Inj 40 Mg/4 Ml Vial IV PUSH 40 mg BID PA Administration Guaifenesin 1,200 mg 08/30/24 21:00 Guaifenesin 12 Hr 600 Mg Tabcr PO Q12HR PA Hydrochlorothiazide 25 mg 08/26/24 09:00 08/27/24 08:48 Hydrochlorothiazide 25 Mg Tablet PO 25 mg DAILY PA Administration Piperacillin Sod/Tazobactam 50 mls @ 100 mls/hr 08/30/24 21:00 Sod 3.375 gm/ Sodium Chloride IVPB Q6H PA Doxycycline Hyclate 100 mg/ 100 mls @ 100 mls/hr 08/30/24 04:00 Sodium Chloride IVPB Q12H PA Ipratropium [place] 0.5 mg 08/30/24 14:00 08/30/24 13:49 Ipratropium Br 0.02% Inh Soln 0.5 Mg/2.5 Ml Vial INHALATION 0.5 mg Q6HRT PA Administration Irbesartan 150 mg 08/26/24 09:00 08/28/24 08:48 Irbesartan 150 Mg Tablet PO Not Given DAILY PA Levalbuterol HCl 0.63 mg 08/30/24 14:00 08/30/24 13:49 Levalbuterol Neb 1.25 Mg/3 Ml INHALATION 0.63 mg Q6HRT PA Administration Lorazepam 2 mg 08/26/24 21:53 Lorazepam Inj (*Crx) 2 Mg/Ml Vial IV PUSH Q2H PRN CIWA > 15 Lorazepam 2 mg 08/26/24 21:53 08/30/24 10:55 Lorazepam Inj (*Crx) 2 Mg/Ml Vial IV PUSH 2 mg Q4H PRN Administration CIWA 8-15 Lovastatin 40 mg 08/26/24 21:00 08/29/24 21:16 Lovastatin 20 Mg Tablet PO Not Given HS PA Magnesium Oxide 400 mg 08/26/24 09:00 08/30/24 10:43 Magnesium Oxide 400 Mg Tablet PO Not Given DAILY PA Methylprednisolone Sodium Succinate 40 mg 08/30/24 14:00 08/30/24 14:23 Methylprednisolone Sod Succ 40 Mg Vial IV PUSH Not Given Q8HR [facility] Multivitamins Therapeutic 1 tablet 08/26/24 09:00 08/30/24 10:43 Multivitamins Therapeutic Tab (*Bkc) PO Not Given DAILY PA Pantoprazole Sodium 40 mg 08/30/24 21:00 Pantoprazole Sodium Iv 40 Mg Vial IV PUSH Q12HR [facility] Propranolol HCl 120 mg 08/26/24 21:00 07/10/25 21:16 Propranolol Hcl 60 Mg Capsule Cr PO Not Given HS PA Sodium Bicarbonate 650 mg 08/27/24 22:10 08/30/24 17:22 Sodium Bicarbonate Tab 650 Mg Tablet PO 650 mg BID PA Administration Sucralfate 1 gm 08/26/24 11:30 08/30/24 17:22 Sucralfate 1 Gm Tablet PO 1 gm ACHS PA Administration Thiamine HCl 100 mg 08/29/24 12:55 08/30/24 10:43 Thiamine Hcl 100 Mg Tablet PO Not Given QAM [facility] Radiology Results: ITS Impressions Renal Ultrasound 08/28/24 09:25 IMPRESSION: No hydronephrosis or renal calculi. Findings suggesting medical renal disease. Abdomen Ultrasound 08/28/24 11:48 IMPRESSION: Limited evaluation of the pancreas secondary to overlying bowel gas. Trace perihepatic free fluid. Phasic flow within the portal vein. Hepatomegaly. Single static measurement of the common bile duct is 4 mm, a significant difference from recent CT examination for which MRCP (may be performed without intravenous contrast) is recommended for confirmation. Chest CT 08/29/24 18:13 IMPRESSION: 1. Pneumonia involving the right upper and lower lobe. 2. Bilateral pleural effusion more on the right side with adjacent atelectasis versus pneumonia. 3. Tracheobronchomalacia. 4. Cardiomegaly with congestive haley. Chest X-Ray 08/30/24 09:21 IMPRESSION: 1. Airspace opacity right lung most prominent in the right upper and middle lobes which could represent atelectasis and/or pneumonia. 2. Cardiomegaly with enlargement of the central pulmonary arteries consistent with pulmonary arterial hypertension. Venous Doppler Study 08/30/24 13:26 IMPRESSION: 1. No deep venous thrombosis. Modified Barium Swallow 08/30/24 16:58 IMPRESSION: Pharyngeal dysphagia with laryngeal penetration without aspiration. Please correlate with speech pathologist findings and specific feeding recommendations. Labs Labs: Laboratory Results - last 24 hr 08/29/24 08/29/24 08/30/24 17:40 17:59 00:15 WBC RBC Hgb Hct MCV MCH MCHC RDW Plt Count MPV Immature Gran % (Auto) Neut % (Auto) Lymph % (Auto) [place] % (Auto) Eos % (Auto) Baso % (Auto) Lymph # (Auto) [place] # (Auto) Eos # (Auto) Baso # (Auto) Abs Immat Gran (auto) Absolute Neuts (auto) Absolute Nucleated RBC Nucleated RBC % % Immature Plt Fraction Puncture Site Left radial ABG pH 7.379 ABG pCO2 44.9 ABG pO2 67.0 L ABG PO2/FiO2 Ratio 0.96 ABG HCO3 25.9 ABG O2 Saturation 92.9 L ABG O2 Content 12.6 L ABG Base Excess 0.6 A-a Gradient 383.8 Oxyhemoglobin 91.3 Total Hemoglobin 9.8 L O2 Delivery Device Non-invasive vent O2 Liters/Min Not Reportable Vent Rate 12 FiO2 70 Expiratory Pressure 8 Inspiratory Pressure 14 Sodium Potassium Chloride Carbon Dioxide Anion Gap BUN Creatinine Estim Creat Clear Calc Estimated GFR Glucose POC Capillary Glucose 139 H 127 H Lactic Acid Calcium Magnesium Total Bilirubin AST ALT Alkaline Phosphatase NT-Pro-B Natriuret Pep Total Protein Albumin Lipase Procalcitonin Nasal MRSA (PCR) Chlamy pneumoniae PCR Adenovirus (PCR) B. pertussis DNA (PCR) B.parapertussis DNA PCR Coronavirus OC43 (PCR) Coronavirus HKU1 (PCR) Coronavirus 229E (PCR) Coronavirus NL63 (PCR) Human Metapneumovir PCR Influenza A (RT-PCR) Influenza A (H1) PCR Influ A (H1/09) PCR Influenza A (H3) PCR Influenza Type A (PCR) Influenza B (RT-PCR) Influenza Type B (PCR) M. pneumoniae (PCR) Parainfluenza 1 (PCR) Parainfluenza 2 (PCR) Parainfluenza 3 (PCR) Parainfluenza 4 (PCR) RSV (RT-PCR) RSV (PCR) Entero/Rhino (PCR) SARS-CoV-2 (PCR) SARS-CoV-2 RNA (RT-PCR) 08/30/24 08/30/24 08/30/24 03:51 11:00 11:06 WBC 7.5 RBC 2.66 L Hgb 8.9 L Hct 28.6 L MCV 107.5 H MCH 33.5 MCHC 31.1 L RDW 14.1 Plt Count 109 L MPV 10.0 Immature Gran % (Auto) 0.8 H Neut % (Auto) 78.4 H Lymph % (Auto) 8.3 L [place] % (Auto) 11.9 H Eos % (Auto) 0.5 Baso % (Auto) 0.1 L Lymph # (Auto) 0.62 L [place] # (Auto) 0.9 H Eos # (Auto) 0.0 Baso # (Auto) 0.0 Abs Immat Gran (auto) 0.06 H Absolute Neuts (auto) 5.8 Absolute Nucleated RBC 0.000 Nucleated RBC % 0.0 % Immature Plt Fraction 5.3 Puncture Site Right radial ABG pH 7.357 ABG pCO2 48.2 H ABG pO2 69.6 L ABG PO2/FiO2 Ratio 0.87 ABG HCO3 26.4 H ABG O2 Saturation 93.2 L ABG O2 Content 13.9 L ABG Base Excess 0.5 A-a Gradient 450.2 Oxyhemoglobin 91.4 Total Hemoglobin 10.8 L O2 Delivery Device Bipap O2 Liters/Min Not Reportable Vent Rate FiO2 80 Expiratory Pressure 8 Inspiratory Pressure 16 Sodium 133 L Potassium 3.9 Chloride 95 L Carbon Dioxide 28 Anion Gap 10 BUN 47 H Creatinine 3.65 H Estim Creat Clear Calc 24 Estimated GFR 17 L Glucose 119 H POC Capillary Glucose Lactic Acid 0.6 L Calcium 8.7 Magnesium 2.5 H Total Bilirubin 1.3 AST 138 H ALT 108 H Alkaline Phosphatase 77 NT-Pro-B Natriuret Pep 4460 H Total Protein 7.8 Albumin 3.7 Lipase 2247 H Procalcitonin 0.2 Nasal MRSA (PCR) Chlamy pneumoniae PCR Adenovirus (PCR) B. pertussis DNA (PCR) B.parapertussis DNA PCR Coronavirus OC43 (PCR) Coronavirus HKU1 (PCR) Coronavirus 229E (PCR) Coronavirus NL63 (PCR) Human Metapneumovir PCR Influenza A (RT-PCR) Influenza A (H1) PCR Influ A (H1/09) PCR Influenza A (H3) PCR Influenza Type A (PCR) Influenza B (RT-PCR) Influenza Type B (PCR) M. pneumoniae (PCR) Parainfluenza 1 (PCR) Parainfluenza 2 (PCR) Parainfluenza 3 (PCR) Parainfluenza 4 (PCR) RSV (RT-PCR) RSV (PCR) Entero/Rhino (PCR) SARS-CoV-2 (PCR) SARS-CoV-2 RNA (RT-PCR) 08/30/24 08/30/24 08/30/24 12:26 13:54 16:49 WBC RBC Hgb Hct MCV MCH MCHC RDW Plt Count MPV Immature Gran % (Auto) Neut % (Auto) Lymph % (Auto) [place] % (Auto) Eos % (Auto) Baso % (Auto) Lymph # (Auto) [place] # (Auto) Eos # (Auto) Baso # (Auto) Abs Immat Gran (auto) Absolute Neuts (auto) Absolute Nucleated RBC Nucleated RBC % % Immature Plt Fraction Puncture Site ABG pH ABG pCO2 ABG pO2 ABG PO2/FiO2 Ratio ABG HCO3 ABG O2 Saturation ABG O2 Content ABG Base Excess A-a Gradient Oxyhemoglobin Total Hemoglobin O2 Delivery Device O2 Liters/Min Vent Rate FiO2 Expiratory Pressure Inspiratory Pressure Sodium Potassium Chloride Carbon Dioxide Anion Gap BUN Creatinine Estim Creat Clear Calc Estimated GFR Glucose POC Capillary Glucose 112 H 168 H Lactic Acid Calcium Magnesium Total Bilirubin AST ALT Alkaline Phosphatase NT-Pro-B Natriuret Pep Total Protein Albumin Lipase Procalcitonin Nasal MRSA (PCR) Not detected Chlamy pneumoniae PCR Cancelled Adenovirus (PCR) Cancelled B. pertussis DNA (PCR) Cancelled B.parapertussis DNA PCR Cancelled Coronavirus OC43 (PCR) Cancelled Coronavirus HKU1 (PCR) Cancelled Coronavirus 229E (PCR) Cancelled Coronavirus NL63 (PCR) Cancelled Human Metapneumovir PCR Cancelled Influenza A (RT-PCR) Negative Influenza A (H1) PCR Cancelled Influ A (H1/09) PCR Cancelled Influenza A (H3) PCR Cancelled Influenza Type A (PCR) Cancelled Influenza B (RT-PCR) Negative Influenza Type B (PCR) Cancelled M. pneumoniae (PCR) Cancelled Parainfluenza 1 (PCR) Cancelled Parainfluenza 2 (PCR) Cancelled Parainfluenza 3 (PCR) Cancelled Parainfluenza 4 (PCR) Cancelled RSV (RT-PCR) Negative RSV (PCR) Cancelled Entero/Rhino (PCR) Cancelled SARS-CoV-2 (PCR) Cancelled SARS-CoV-2 RNA (RT-PCR) Negative
[2024-08-30 12:00] LABS: NT Pro B Type Natriuretic Pept 4460 pg/mL (19.9-100)
[2024-08-30 12:01] LABS: Procalcitonin 0.2 ng/mL
[2024-08-30 12:08] LABS: Alveolar/Arterial O2 Gradient 450.2 mmHg; Fractional Inspired Oxygen 80 %; HCO3 ABG 26.4 mEq/l (22.0-26.0); Modified Allen's Test Pass; Oxygen Content ABG 13.9 %vol (16.0-22.0); Oxygen Saturation ABG 93.2 % (95.0-100.0); PCO2 ABG 48.2 mmHg (35.0-45.0); PO2 ABG 69.6 mmHg (80.0-100.0); PO2 FiO2 Ratio Arterial Blood 0.87 %; Site Drawn RIGHT RADIAL
--- NOTE | 2024-08-30 12:42 | PM.CNPUL ---
Assessment and Plan Assessment and plan (1) Respiratory failure with hypoxia and hypercapnia: Code(s): J96.91 - Respiratory failure, unspecified with hypoxia; J96.92 - Respiratory failure, unspecified with hypercapnia Status: Acute Assessment and Plan: Patient with a history of tobacco use but no formal diagnosis of COPD. I have no PFTs. At baseline he is on no oxygen at home. He has no bullous emphysema on his CT scan. Patient presented on 08/25 with shortness of breath, fall in AFib RVR with a CT scan that showed no PE and clear lung adair. He developed acute renal failure and his weight today is 128 kilos with an admission weight of 117.9 kg and he has anasarca. His CT scan on 08/29/2024 shows right upper lobe and right lower lobe infiltrates with bilateral PEs in his right greater than left. Chest x-ray on 08/30/2024 shows dense consolidation right upper lobe and a sail sign with shift of the mediastinum to the right consistent with right upper and lower lobe atelectasis/ collapse. Etiology of patient's hypoxemic and hypercarbic respiratory failure includes: Mucus plugging, pulmonary edema, infection, Benzodiazepine use to prevent DTs.. Plan: Continue BiPAP p.r.n. during the day and scheduled at night. I will increase the respiratory rate from 12 to 18 given his blood gases 7.36/48/70. Goal saturation 90-94%. Adjust oxygen accordingly and currently is on 10 L nasal cannula with saturations 92%. regarding infection, patient is on doxycycline day 5 and Zosyn day 4 and I agree with this antibiotics at this time. procalcitonin is 0.2. I will send an MRSA nasal swab and if this is positive patient should be started on vancomycin and Zosyn changed to meropenem. I will send COVID, RSV, influenza RT PCR, urine for Legionella, urine for pneumococcal, mycoplasma IgM and respiratory pathogen panel looking for etiologies for infection. regarding possible mucus plugging I will start guaifenesin 1200 mg p.o. b.i.d., nebulized ipratropium and levalbuterol q.6 hours, nebulized Mucomyst q.12 hours, Cornet flutter valve, EzPAP treatment. Regarding pulmonary edema his BNP is 4 4460, he has anasarca and his weight is increased 10.1 kg since admission. his renal failure is improving and he is being diuresed with Lasix 40 IV b.i.d.. He does not need steroids from a pulmonary perspective. Inpatient pulmonary consult services will resume on 09/02/2024, call with questions. Discussed with Dr. Nowak. History of Present Illness History of Present Illness Consult date: 08/30/24 Chief complaint: AFib RVR, Acute heart failure Narrative: 08/30/2024: This is a new pulmonary consult for hypoxemic respiratory failure. 63-year-old with a history of AFib off of Eliquis because a peptic ulcer disease, neck surgery, alcohol use, cirrhosis. patient is currently on BiPAP. For he received Ativan this morning for alcohol withdrawal and does wake up and shows 2 fingers and wiggles toes. Patient presented to [place] emergency department on 08/25/2024 with shortness of breath, a fall and AFib with RVR. Vital signs on presentation 108/71, heart rate 153, on 4 L nasal cannula saturations were 91%. White blood cell count 7.4, eosinophils 2%, creatinine 1.28, serum bicarbonate 25, BNP 438, troponin 0.106, 0.111, 0.124, chest x-ray with mild congestion D-dimer positive. CT angiogram of the chest showed no PE, no focal infiltrates or effusions and cirrhotic liver with small amount of perihepatic ascites. Patient was treated with IV diltiazem, IV Lasix and his weight was 117.9 kg. On 08/26 patient received Librium and Ativan, he is on 2 L with saturation 97%. Echocardiogram with EF 60 65% abnormal diastolic function mild tricuspid regurg with a PASP of 37 normal RV size and function normal right atrial size. On 08/27/2024 patient is on 2 L with saturations 90-100%. Creatinine was 2.82. Chest x-ray showed moderate pulmonary edema and later that night he was placed on CPAP 70%. Chest x-ray showed a right upper lobe infiltrate and he was started on Zosyn. On 08/28/2024 creatinine 4.60, required 6 L nasal cannula. 08/29/2024, creatinine 4.20, AFib was controlled. Diagnosed with alcoholic hepatitis. Chest x-ray with improved right upper lobe but continued congestion. Developed hematuria. CT scan of the chest shows right upper lobe infiltrate, right lower lobe infiltrate small effusions right greater than left, no bullous emphysema. 08/30/2024: Patient is currently in the room on BiPAP set rate of 12, breathing 14 times a minute, pressure 16/8, inspiratory time 1.0, rise of 3 and 80% FiO2 with an ABG of 7.36/48/70. He is afebrile. white blood cell count 7.5, creatinine 3.65, Chest x-ray shows dense consolidation right upper lobe, sail sign consistent with right lower lobe collapse with clear left lung and shift of the mediastinum to the right. I took him off the BiPAP and placed him on 10 L nasal cannula on after 12 minutes of saturations were 91%. He was able to cough but has a weak cough and was unable to expectorate any phlegm. DATA: 08/29/24: CT diagnostic chest wo con Ordering provider: Fanta Nowak MD History: 63 years Male with . sob . Comparison: None. Technique: CT chest without IV contrast.Radiation reduction technique utilized. The dose-length product was 861.43 mGy-cm. FINDINGS: VISUALIZED THORACIC INLET: Normal. MEDIASTINUM: Aorta/coronary arteries: Mild atheromatous disease. Heart/other: The heart is slightly enlarged. Lymph nodes: No mediastinal or hilar adenopathy. Slight narrowing of the distal trachea. Severe narrowing of the main bronchi. LUNGS: Pneumonia seen in the right upper and lower lobe posteriorly. Right moderate pleural effusion. Minimal left pleural effusion with adjacent atelectasis versus pneumonia. No pulmonary nodules or masses. No pneumothorax. VISUALIZED UPPER ABDOMEN: Soft tissue density adjacent to the right lobe of the liver measuring 4.5 cm. Ultrasound evaluation advised. Benign calcifications of the spleen. Otherwise, the visualized upper abdomen is normal. MUSCULOSKELETAL: Soft tissues: The superficial soft tissues are normal. Bones: Age appropriate degenerative changes of the spine. IMPRESSION: 1. Pneumonia involving the right upper and lower lobe. 2. Bilateral pleural effusion more on the right side with adjacent atelectasis versus pneumonia. 3. Tracheobronchomalacia. 4. Cardiomegaly with congestive haley. 08/26/24: Clinical Indication: Pulmonary embolus CT Scan of the Chest with Contrast: Technique: Contiguous sections were acquired throughout the chest after intravenous administration of 100 cc of Omnipaque 350. Dose reduction technique was used on this scan by utilizing automated exposure control and iterative reconstruction technique. The dose-length product (DLP) was 794.23 mGy-cm. COMPARISON: 08/25/2024 at 10:50 PM Findings: There is no evidence of any significant mediastinal, hilar or axillary lymphadenopathy. There is no filling defect in the pulmonary arterial tree to suggest pulmonary embolus. There is no evidence of aortic dissection or aneurysm. There is no evidence of pleural or pericardial effusion. The lungs are clear. No pulmonary nodules or infiltrates are noted. Images through the upper abdomen reveal cirrhotic morphology of liver with small amount of perihepatic ascites. Impression: No evidence of pulmonary embolus, aortic dissection, or aortic aneurysm. Clear lungs. Cirrhotic liver with small amount of perihepatic ascites. 08/26/24: Summary 1. Left ventricular systolic function is normal, estimated at 60-65. 2. The left ventricular diastolic function is abnormal. 3. Left atrial chamber dimension is mildly enlarged. 4. There is mild mitral valve regurgitation. 5. There is mild tricuspid valve regurgitation. 6. Mild pulmonary hypertension, estimated pulmonary arterial systolic pressure is 37 mmHg. Left Ventricle Left ventricular chamber dimension is normal. Left ventricular systolic function is normal, estimated at 60-65. There is no increased left ventricular wall thickness. Left ventricular septal wall motion is normal. The left ventricular diastolic function is abnormal. Right Ventricle Right ventricular chamber dimension is normal. Right ventricular systolic function is normal. Right Atria Right atrial chamber dimension is normal. Review of Systems Constitutional: Constitutional: Reports no additional constitutional complaints Eyes: Eyes: Reports no additional eye complaints ENT: Reports system reviewed and no additional complaints, except as documented Cardiovascular: Cardiovascular: Reports no additional cardiovascular complaints Respiratory: Respiratory: Reports no additional respiratory complaints Gastrointestinal: Gastrointestinal: Reports no additional gastrointestinal complaints Musculoskeletal: Musculoskeletal: Reports no additional musculoskeletal complaints Neurologic: Reports system reviewed and no additional complaints, except as documented Psychiatric: Psychiatric: Reports no additional psychiatric complaints Endocrine: Endocrine: Reports no additional endocrine complaints Hematologic/Lymphatic: Hematologic/Lymphatic: Reports no additional hematologic/lymphatic complaints Allergic/Immunologic: Allergic/Immunologic: Reports no additional allergic/immunologic complaints [facility] Past Medical History Medical History (Updated 08/30/24 @ 12:56 by Isai Jones MD) GERD (gastroesophageal reflux disease) Hyperlipidemia Hypertension Alcohol abuse Hypermagnesemia Family History Family History Father Acute myocardial infarction Mother Cerebrovascular accident Social History Social History Smoking packs per day: 2 Smoking cigarettes per day: 40.0 Years smoked: 30 Smoking pack-years: 60.00 Smoking status: Former smoker Tobacco type: cigarettes Second hand tobacco smoke exposure: No Smoking end date: 02/20/06 Alcohol intake: current Drinks per week: 48 Substance use: unknown Substance use type: does not use Do You Feel Safe in your Home?: Yes Lack of Transportation: No Lack of Food: Never True Current Housing: I Have Housing Concerned About Future Housing: No Difficulty Paying Gas/Electric Bills: No Difficulty Paying for Meds: No Currently Unemployed: No Education: Trade/Vocational Certificate Difficulty w/ Childcare or Family Care: No Gender identity (if verbalized by the patient): Male Sexual Orientation (if Verbalized by the Patient): Straight or Heterosexual Spiritual care concerns: No Meds Home Medications and Allergies Home Medications ?Medication ?Instructions ?Recorded ?Confirmed ?Type amlodipine 10 mg tablet 10 mg PO DAILY 04/20/22 08/26/24 History hydrochlorothiazide 25 mg tablet 25 mg PO DAILY 04/20/22 08/26/24 History irbesartan 150 mg tablet 150 mg PO DAILY 04/20/22 08/26/24 History aspirin 81 mg tablet,delayed 81 mg PO DAILY 08/26/24 08/26/24 History release (Adult Aspirin Regimen) doxycycline monohydrate 50 mg 50 mg PO DAILY 08/26/24 08/26/24 History capsule furosemide 20 mg tablet 20 mg PO DAILY 08/26/24 08/26/24 History lovastatin 40 mg tablet 40 mg PO HS 08/26/24 08/26/24 History magnesium 200 mg tablet 400 mg PO DAILY 08/26/24 08/26/24 History multivitamin (Daily Multi-Vitamin 1 tablet PO DAILY 08/26/24 08/26/24 History tablet) omega 7-lye-zks-fish oil 100 2 cap PO BID 08/26/24 08/26/24 History mg-160 mg-1,000 mg capsule (Fish Oil) pantoprazole 40 mg tablet,delayed 40 mg PO BID 08/26/24 08/26/24 History release propranolol 120 mg capsule,24 120 mg PO HS 08/26/24 08/26/24 History hr,extended release sucralfate 1 gram tablet 1 g PO .with meals and HS 08/26/24 08/26/24 History Allergies Allergy/AdvReac Type Severity Reaction Status Date / Time azithromycin Allergy Unknown Verified 08/26/24 00:59 ezetimibe (From Vytorin) Allergy Unknown Verified 08/26/24 00:59 simvastatin (From Vytorin) Allergy Unknown Verified 08/26/24 00:59 Vital Signs Vital Signs - 24 hr 08/29/24 14:00 08/29/24 14:25 08/29/24 15:55 Temperature Pulse Rate 78 78 Pulse Rate [Bilateral Pedal (Dorsalis Pedis) Palpation] Respiratory Rate 20 Blood Pressure Pulse Oximetry 92 93 Oxygen Delivery High Flow Nasal Cannula High Flow Nasal Cannula Oxygen Flow Rate 15 12 Fraction of Inspired Oxygen 40 08/29/24 16:00 08/29/24 16:00 08/29/24 17:14 Temperature 37.1 C Pulse Rate 83 83 67 Pulse Rate [Bilateral Pedal (Dorsalis Pedis) Palpation] Respiratory Rate 28 H 22 H Blood Pressure 130/66 Pulse Oximetry 89 L 93 Oxygen Delivery Oxygen Flow Rate Fraction of Inspired Oxygen 08/29/24 18:00 08/29/24 20:00 08/29/24 20:00 Temperature 36.5 C Pulse Rate 66 66 Pulse Rate [Bilateral Pedal (Dorsalis Pedis) Palpation] 74 Respiratory Rate 23 H Blood Pressure 119/61 Pulse Oximetry 91 Oxygen Delivery Oxygen Flow Rate Fraction of Inspired Oxygen 08/29/24 20:00 08/29/24 20:00 08/29/24 20:52 Temperature Pulse Rate 78 65 87 Pulse Rate [Bilateral Pedal (Dorsalis Pedis) Palpation] Respiratory Rate 34 H Blood Pressure Pulse Oximetry 97 92 Oxygen Delivery BiPAP Oxygen Flow Rate Fraction of Inspired Oxygen 40 08/29/24 21:16 08/29/24 22:00 08/30/24 00:00 Temperature 36.5 C Pulse Rate 80 62 84 Pulse Rate [Bilateral Pedal (Dorsalis Pedis) Palpation] Respiratory Rate 20 Blood Pressure 118/78 Pulse Oximetry 94 Oxygen Delivery Oxygen Flow Rate Fraction of Inspired Oxygen 08/30/24 00:00 08/30/24 00:00 08/30/24 02:00 Temperature Pulse Rate 86 68 Pulse Rate [Bilateral Pedal (Dorsalis Pedis) Palpation] Respiratory Rate Blood Pressure Pulse Oximetry 94 Oxygen Delivery BiPAP Oxygen Flow Rate 14 Fraction of Inspired Oxygen 40 08/30/24 02:25 08/30/24 04:00 08/30/24 04:00 Temperature Pulse Rate 86 88 Pulse Rate [Bilateral Pedal (Dorsalis Pedis) Palpation] 88 Respiratory Rate 16 Blood Pressure Pulse Oximetry 93 94 Oxygen Delivery BiPAP Oxygen Flow Rate 14 Fraction of Inspired Oxygen 40 08/30/24 04:00 08/30/24 04:00 08/30/24 06:00 Temperature 36.6 C Pulse Rate 88 88 93 Pulse Rate [Bilateral Pedal (Dorsalis Pedis) Palpation] Respiratory Rate 20 Blood Pressure 117/74 Pulse Oximetry 94 Oxygen Delivery Oxygen Flow Rate Fraction of Inspired Oxygen 08/30/24 08:00 08/30/24 08:00 08/30/24 08:40 Temperature 36.9 C Pulse Rate 94 86 Pulse Rate [Bilateral Pedal (Dorsalis Pedis) Palpation] 95 Respiratory Rate 21 H 13 Blood Pressure 114/68 Pulse Oximetry 94 95 Oxygen Delivery BiPAP Oxygen Flow Rate Fraction of Inspired Oxygen 08/30/24 12:33 Temperature 36.2 C L Pulse Rate 101 H Pulse Rate [Bilateral Pedal (Dorsalis Pedis) Palpation] Respiratory Rate 24 H Blood Pressure 126/62 Pulse Oximetry 92 Oxygen Delivery Oxygen Flow Rate Fraction of Inspired Oxygen Exam Const: General: cooperative and comfortable Orientation/consciousness: oriented to person, oriented to place and oriented to time Other: Obese and sleepy but does awaken HENMT: Head: normal to inspection Ears: hearing grossly normal bilaterally Eyes: General: appearance normal, both eyes and all related structures Neck: Neck: normal visual inspection Chest: Chest palpation & inspection: normal inspection of the chest Resp: Effort & Inspection: normal respiratory effort and able to speak in complete sentences Auscultation: no crackles, no rales, no rhonchi, no wheezes and diminished lung sounds Other: course rhonchi Cardio: Jugular venous distension: no JVD GI: Inspection: normal to inspection GI Palp: No abdominal tenderness Skin: General skin exam: normal color Neuro: Other: shows 2 fingers and wiggle his toes to command. Extrem: General: normal to inspection Other: Anasarca Psych: Appearance: grossly normal Results Laboratory Findings 08/30/24 03:51 08/30/24 03:51 ABG, PT/INR, D-dimer: ABG ABG pH 7.357 (7.350-7.450) 08/30/24 11:00 ABG pCO2 48.2 mmHg (35.0-45.0) H 08/30/24 11:00 ABG pO2 69.6 mmHg (80.0-100.0) L 08/30/24 11:00 ABG O2 Saturation 93.2 % (95.0-100.0) L 08/30/24 11:00 Abnormal lab findings: Abnormal Labs 08/26/24 08/26/24 08/27/24 06:40 20:57 04:04 RBC 2.85 L Hgb 9.6 L Hct 29.2 L MCV 102.5 H MCHC Plt Count Immature Gran % (Auto) Neut % (Auto) 76.1 H Lymph % (Auto) 11.8 L Spencer % (Auto) 11.1 H Baso % (Auto) Lymph # (Auto) Spencer # (Auto) 0.9 H Abs Immat Gran (auto) 0.04 H ABG pH ABG pCO2 ABG pO2 ABG HCO3 ABG O2 Saturation ABG O2 Content Reduced Hemoglobin Total Hemoglobin Sodium 134 L Potassium Chloride 94 L Carbon Dioxide 20 L Anion Gap 20 H BUN 23 H Creatinine Estimated GFR 58 L Glucose 125 H POC Capillary Glucose Lactic Acid Magnesium Total Bilirubin AST ALT Total Creatine Kinase Troponin I 0.124 H* 0.250 H* 0.292 H* NT-Pro-B Natriuret Pep Total Protein Protein/Creat Ratio 2 08/27/24 08/27/24 08/27/24 04:09 11:31 14:02 RBC 2.68 L Hgb 8.8 L Hct 28.0 L MCV 104.5 H MCHC 31.4 L Plt Count 125 L Immature Gran % (Auto) Neut % (Auto) Lymph % (Auto) Spencer % (Auto) Baso % (Auto) Lymph # (Auto) Spencer # (Auto) Abs Immat Gran (auto) ABG pH ABG pCO2 ABG pO2 ABG HCO3 ABG O2 Saturation ABG O2 Content Reduced Hemoglobin Total Hemoglobin Sodium 132 L Potassium Chloride 94 L Carbon Dioxide 20 L Anion Gap 18 H BUN 27 H Creatinine 2.82 H Estimated GFR 23 L Glucose POC Capillary Glucose 118 H 141 H Lactic Acid Magnesium Total Bilirubin AST ALT Total Creatine Kinase Troponin I NT-Pro-B Natriuret Pep Total Protein Protein/Creat Ratio 2 08/27/24 08/27/24 08/27/24 14:24 16:29 18:41 RBC 2.68 L Hgb 9.0 L Hct 28.7 L MCV 107.1 H MCHC 31.4 L Plt Count 124 L Immature Gran % (Auto) Neut % (Auto) Lymph % (Auto) Spencer % (Auto) Baso % (Auto) Lymph # (Auto) Spencer # (Auto) Abs Immat Gran (auto) ABG pH 7.273 L* ABG pCO2 48.3 H ABG pO2 ABG HCO3 21.8 L ABG O2 Saturation ABG O2 Content 13.7 L Reduced Hemoglobin Total Hemoglobin 10.2 L Sodium 131 L Potassium 5.1 H Chloride 94 L Carbon Dioxide 21 L Anion Gap 16 H BUN 32 H Creatinine 3.95 H Estimated GFR 15 L Glucose 127 H POC Capillary Glucose 111 H Lactic Acid Magnesium Total Bilirubin 1.7 H AST 495 H ALT 174 H Total Creatine Kinase Troponin I NT-Pro-B Natriuret Pep Total Protein 8.3 H Protein/Creat Ratio 2 08/27/24 08/28/24 08/28/24 21:23 00:37 04:35 RBC 2.72 L Hgb 9.0 L Hct 28.8 L MCV 105.9 H MCHC 31.3 L Plt Count 105 L Immature Gran % (Auto) Neut % (Auto) Lymph % (Auto) Spencer % (Auto) Baso % (Auto) Lymph # (Auto) Spencer # (Auto) Abs Immat Gran (auto) ABG pH 7.282 L* ABG pCO2 47.2 H ABG pO2 79.0 L ABG HCO3 21.8 L ABG O2 Saturation 94.2 L ABG O2 Content 13.6 L Reduced Hemoglobin 6.6 H Total Hemoglobin 10.3 L Sodium 133 L Potassium Chloride 94 L Carbon Dioxide Anion Gap 15 H BUN 40 H Creatinine 4.60 H Estimated GFR 13 L Glucose 114 H POC Capillary Glucose 127 H Lactic Acid Magnesium 2.4 H Total Bilirubin AST 343 H ALT 162 H Total Creatine Kinase 435 H Troponin I 0.188 H* NT-Pro-B Natriuret Pep Total Protein Protein/Creat Ratio 2 08/28/24 08/28/24 08/28/24 07:56 11:51 12:02 RBC Hgb Hct MCV MCHC Plt Count Immature Gran % (Auto) Neut % (Auto) Lymph % (Auto) Spencer % (Auto) Baso % (Auto) Lymph # (Auto) Spencer # (Auto) Abs Immat Gran (auto) ABG pH ABG pCO2 ABG pO2 ABG HCO3 ABG O2 Saturation ABG O2 Content Reduced Hemoglobin Total Hemoglobin Sodium Potassium Chloride Carbon Dioxide Anion Gap BUN Creatinine Estimated GFR Glucose POC Capillary Glucose 114 H 115 H Lactic Acid Magnesium Total Bilirubin AST ALT Total Creatine Kinase Troponin I NT-Pro-B Natriuret Pep Total Protein Protein/Creat Ratio 2 0.50 H 08/28/24 08/29/24 08/29/24 16:16 04:25 06:07 RBC 2.64 L Hgb 8.8 L Hct 27.9 L MCV 105.7 H MCHC 31.5 L Plt Count 111 L Immature Gran % (Auto) Neut % (Auto) Lymph % (Auto) Spencer % (Auto) Baso % (Auto) Lymph # (Auto) Spencer # (Auto) Abs Immat Gran (auto) ABG pH ABG pCO2 ABG pO2 ABG HCO3 ABG O2 Saturation ABG O2 Content Reduced Hemoglobin Total Hemoglobin Sodium 131 L Potassium Chloride 95 L Carbon Dioxide Anion Gap BUN 45 H Creatinine 4.20 H Estimated GFR 14 L Glucose 121 H POC Capillary Glucose 108 H 115 H Lactic Acid Magnesium 2.6 H Total Bilirubin AST ALT Total Creatine Kinase Troponin I NT-Pro-B Natriuret Pep Total Protein Protein/Creat Ratio 2 08/29/24 08/29/24 08/29/24 12:09 17:40 17:59 RBC Hgb Hct MCV MCHC Plt Count Immature Gran % (Auto) Neut % (Auto) Lymph % (Auto) Spencer % (Auto) Baso % (Auto) Lymph # (Auto) Spencer # (Auto) Abs Immat Gran (auto) ABG pH ABG pCO2 ABG pO2 67.0 L ABG HCO3 ABG O2 Saturation 92.9 L ABG O2 Content 12.6 L Reduced Hemoglobin Total Hemoglobin 9.8 L Sodium Potassium Chloride Carbon Dioxide Anion Gap BUN Creatinine Estimated GFR Glucose POC Capillary Glucose 131 H 139 H Lactic Acid Magnesium Total Bilirubin AST ALT Total Creatine Kinase Troponin I NT-Pro-B Natriuret Pep Total Protein Protein/Creat Ratio 2 08/30/24 08/30/24 08/30/24 00:15 03:51 11:00 RBC 2.66 L Hgb 8.9 L Hct 28.6 L MCV 107.5 H MCHC 31.1 L Plt Count 109 L Immature Gran % (Auto) 0.8 H Neut % (Auto) 78.4 H Lymph % (Auto) 8.3 L Spencer % (Auto) 11.9 H Baso % (Auto) 0.1 L Lymph # (Auto) 0.62 L Spencer # (Auto) 0.9 H Abs Immat Gran (auto) 0.06 H ABG pH ABG pCO2 48.2 H ABG pO2 69.6 L ABG HCO3 26.4 H ABG O2 Saturation 93.2 L ABG O2 Content 13.9 L Reduced Hemoglobin Total Hemoglobin 10.8 L Sodium 133 L Potassium Chloride 95 L Carbon Dioxide Anion Gap BUN 47 H Creatinine 3.65 H Estimated GFR 17 L Glucose 119 H POC Capillary Glucose 127 H Lactic Acid 0.6 L Magnesium 2.5 H Total Bilirubin AST 138 H ALT 108 H Total Creatine Kinase Troponin I NT-Pro-B Natriuret Pep Total Protein Protein/Creat Ratio 2 08/30/24 08/30/24 11:06 12:26 RBC Hgb Hct MCV MCHC Plt Count Immature Gran % (Auto) Neut % (Auto) Lymph % (Auto) Spencer % (Auto) Baso % (Auto) Lymph # (Auto) Spencer # (Auto) Abs Immat Gran (auto) ABG pH ABG pCO2 ABG pO2 ABG HCO3 ABG O2 Saturation ABG O2 Content Reduced Hemoglobin Total Hemoglobin Sodium Potassium Chloride Carbon Dioxide Anion Gap BUN Creatinine Estimated GFR Glucose POC Capillary Glucose 112 H Lactic Acid Magnesium Total Bilirubin AST ALT Total Creatine Kinase Troponin I NT-Pro-B Natriuret Pep 4460 H Total Protein Protein/Creat Ratio 2 Diagnostic Findings Additional studies: ITS Impressions Chest X-Ray 08/27/24 14:28 IMPRESSION: Moderate pulmonary edema. Superimposed infection cannot be excluded. Airspace opacity in the right upper lung zone may represent pneumonia in appropriate clinical settings. Short-term follow-up chest radiograph is recommended after appropriate clinical therapy. Renal Ultrasound 08/28/24 09:25 IMPRESSION: No hydronephrosis or renal calculi. Findings suggesting medical renal disease. Abdomen Ultrasound 08/28/24 11:48 IMPRESSION: Limited evaluation of the pancreas secondary to overlying bowel gas. Trace perihepatic free fluid. Phasic flow within the portal vein. Hepatomegaly. Single static measurement of the common bile duct is 4 mm, a significant difference from recent CT examination for which MRCP (may be performed without intravenous contrast) is recommended for confirmation. Chest X-Ray 08/29/24 15:29 IMPRESSION: Residual opacification in the right upper lobe area. Follow-up advised. Cardiomegaly with cardiac decompensation and pulmonary edema. Pneumonitis cannot be excluded. Clinical correlation and follow-up advised. Chest CT 08/29/24 18:13 IMPRESSION: 1. Pneumonia involving the right upper and lower lobe. 2. Bilateral pleural effusion more on the right side with adjacent atelectasis versus pneumonia. 3. Tracheobronchomalacia. 4. Cardiomegaly with congestive haley. Chest X-Ray 08/30/24 09:21 IMPRESSION: 1. Airspace opacity right lung most prominent in the right upper and middle lobes which could represent atelectasis and/or pneumonia. 2. Cardiomegaly with enlargement of the central pulmonary arteries consistent with pulmonary arterial hypertension.
--- NOTE | 2024-08-30 12:49 | WPDUROPN2 ---
Progress Note: A&P Assessment and Plan (1) Acute kidney injury: Code(s): N17.9 - Acute kidney failure, unspecified Status: Acute (2) Gross hematuria: Code(s): R31.0 - Gross hematuria Status: Acute Plan 63y old with gross hematuria after catheter placement in the setting of etoh withdrawal and ams. -ROCCO on 08/28/2024 reveals No hydronephrosis or renal calculi. Findings suggesting medical renal disease. -likely jackson trauma from tugging/insertion. -flush jackson prn -continue to monitor urine for clots and appropriate output. urine looks better today and not as dark red. -cr 4.20. yesterday but now down to 3.65 today -ua not concerning for infection from 08/26 Subjective Subjective Date/Time Seen: 08/30/24 12:49 Interval history: Follow-up for hematuria Renal function/creatinine doing a bit better with increased urine output noted in the last 24 hours; no apparent distress noted at the time of my visit; patient on cpap in bed. 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) Skin: General skin exam: normal color Psych: Other: ams Objective Data Vital Signs Vital Signs: Vital Signs - 24 hr 08/29/24 14:00 08/29/24 14:25 08/29/24 15:55 Temperature Pulse Rate 78 78 Pulse Rate [Bilateral Pedal (Dorsalis Pedis) Palpation] Respiratory Rate 20 Blood Pressure Pulse Oximetry 92 93 Oxygen Delivery High Flow Nasal Cannula High Flow Nasal Cannula Oxygen Flow Rate 15 12 Fraction of Inspired Oxygen 40 08/29/24 16:00 08/29/24 16:00 08/29/24 17:14 Temperature 98.7 F Pulse Rate 83 83 67 Pulse Rate [Bilateral Pedal (Dorsalis Pedis) Palpation] Respiratory Rate 28 H 22 H Blood Pressure 130/66 Pulse Oximetry 89 L 93 Oxygen Delivery Oxygen Flow Rate Fraction of Inspired Oxygen 08/29/24 18:00 08/29/24 20:00 08/29/24 20:00 Temperature 97.7 F Pulse Rate 66 66 Pulse Rate [Bilateral Pedal (Dorsalis Pedis) Palpation] 74 Respiratory Rate 23 H Blood Pressure 119/61 Pulse Oximetry 91 Oxygen Delivery Oxygen Flow Rate Fraction of Inspired Oxygen 08/29/24 20:00 08/29/24 20:00 08/29/24 20:52 Temperature Pulse Rate 78 65 87 Pulse Rate [Bilateral Pedal (Dorsalis Pedis) Palpation] Respiratory Rate 34 H Blood Pressure Pulse Oximetry 97 92 Oxygen Delivery BiPAP Oxygen Flow Rate Fraction of Inspired Oxygen 40 08/29/24 21:16 08/29/24 22:00 08/30/24 00:00 Temperature 97.7 F Pulse Rate 80 62 84 Pulse Rate [Bilateral Pedal (Dorsalis Pedis) Palpation] Respiratory Rate 20 Blood Pressure 118/78 Pulse Oximetry 94 Oxygen Delivery Oxygen Flow Rate Fraction of Inspired Oxygen 08/30/24 00:00 08/30/24 00:00 08/30/24 02:00 Temperature Pulse Rate 86 68 Pulse Rate [Bilateral Pedal (Dorsalis Pedis) Palpation] Respiratory Rate Blood Pressure Pulse Oximetry 94 Oxygen Delivery BiPAP Oxygen Flow Rate 14 Fraction of Inspired Oxygen 40 08/30/24 02:25 08/30/24 04:00 08/30/24 04:00 Temperature Pulse Rate 86 88 Pulse Rate [Bilateral Pedal (Dorsalis Pedis) Palpation] 88 Respiratory Rate 16 Blood Pressure Pulse Oximetry 93 94 Oxygen Delivery BiPAP Oxygen Flow Rate 14 Fraction of Inspired Oxygen 40 08/30/24 04:00 08/30/24 04:00 08/30/24 06:00 Temperature 97.8 F Pulse Rate 88 88 93 Pulse Rate [Bilateral Pedal (Dorsalis Pedis) Palpation] Respiratory Rate 20 Blood Pressure 117/74 Pulse Oximetry 94 Oxygen Delivery Oxygen Flow Rate Fraction of Inspired Oxygen 08/30/24 08:00 08/30/24 08:00 08/30/24 08:40 Temperature 98.4 F Pulse Rate 94 86 Pulse Rate [Bilateral Pedal (Dorsalis Pedis) Palpation] 95 Respiratory Rate 21 H 13 Blood Pressure 114/68 Pulse Oximetry 94 95 Oxygen Delivery BiPAP Oxygen Flow Rate Fraction of Inspired Oxygen 08/30/24 12:33 Temperature 97.2 F L Pulse Rate 101 H Pulse Rate [Bilateral Pedal (Dorsalis Pedis) Palpation] Respiratory Rate 24 H Blood Pressure 126/62 Pulse Oximetry 92 Oxygen Delivery Oxygen Flow Rate Fraction of Inspired Oxygen Intake/Output Intake/Output: Intake & Output 08/27/24 08/28/24 08/29/24 08/30/24 23:59 23:59 23:59 23:59 Intake Total 3135.8 470 1110 50 Output Total 310 515 020 5658 Balance 2825.8 -130 160 -3600 Meds/Results Medications: Active Medications Generic Name Dose Route Start Last Admin Trade Name Freq PRN Reason Stop Dose Admin Acetaminophen 650 mg 08/26/24 06:26 08/28/24 16:54 Acetaminophen 325 Mg Tablet PO 650 mg Q4H PRN Administration Mild Pain (1-3) or Fever Al Hydrox/Mg Hydrox/Simethicone 30 ml 08/26/24 06:26 Mag Hydrox/Al Hydrox/Simeth 30 Ml Udc PO QID PRN Dyspepsia Amlodipine Besylate 10 mg 08/26/24 09:00 08/28/24 08:48 Amlodipine Besylate 10 Mg Tablet PO Not Given DAILY PA Bisacodyl 5 mg 08/26/24 06:26 Bisacodyl 5 Mg Tablet Ec PO DAILY PRN Constipation Diltiazem HCl 30 mg/ Diltiazem 90 mg 08/27/24 10:15 08/30/24 06:02 HCl 60 mg PO Not Given Q8HR PA Fish Oil 2 gm 08/26/24 09:00 08/30/24 10:43 [place] 3 Polyunsat Fatty Acids 1 Gm Cap PO Not Given BID PA Folic Acid 1 mg 08/29/24 12:55 08/30/24 10:42 Folic Acid 1 Mg Tablet PO Not Given DAILY PA Furosemide 20 mg 08/26/24 09:00 08/27/24 08:48 Furosemide 20 Mg Tablet PO 20 mg DAILY PA Administration Furosemide 40 mg 08/30/24 10:25 08/30/24 10:50 Furosemide Inj 40 Mg/4 Ml Vial IV PUSH 40 mg BID PA Administration Hydrochlorothiazide 25 mg 08/26/24 09:00 08/27/24 08:48 Hydrochlorothiazide 25 Mg Tablet PO 25 mg DAILY PA Administration Piperacillin Sod/Tazobactam 50 mls @ 100 mls/hr 08/27/24 18:00 08/30/24 05:58 Sod 3.375 gm/ Sodium Chloride IVPB 100 mls/hr Q6H PA Administration Doxycycline Hyclate 100 mg/ 100 mls @ 100 mls/hr 08/30/24 11:55 Sodium Chloride IVPB Q12HR PA Vancomycin HCl 2,000 mg in 500 mls @ 250 mls/hr 08/30/24 12:42 Vancomycin 2,000 Mg/Ns 500 Ml IVPB 08/30/24 14:41 ONCE ONE Irbesartan 150 mg 08/26/24 09:00 08/28/24 08:48 Irbesartan 150 Mg Tablet PO Not Given DAILY PA Lorazepam 2 mg 08/26/24 21:53 Lorazepam Inj (*Crx) 2 Mg/Ml Vial IV PUSH Q2H PRN CIWA > 15 Lorazepam 2 mg 08/26/24 21:53 08/30/24 10:55 Lorazepam Inj (*Crx) 2 Mg/Ml Vial IV PUSH 2 mg Q4H PRN Administration CIWA 8-15 Lovastatin 40 mg 08/26/24 21:00 08/29/24 21:16 Lovastatin 20 Mg Tablet PO Not Given HS PA Magnesium Oxide 400 mg 08/26/24 09:00 08/30/24 10:43 Magnesium Oxide 400 Mg Tablet PO Not Given DAILY PA Methylprednisolone Sodium Succinate 40 mg 08/30/24 14:00 Methylprednisolone Sod Succ 40 Mg Vial IV PUSH Q8HR PA Multivitamins Therapeutic 1 tablet 08/26/24 09:00 08/30/24 10:43 Multivitamins Therapeutic Tab (*Bkc) PO Not Given DAILY PA Pantoprazole Sodium 40 mg 08/30/24 21:00 Pantoprazole Sodium Iv 40 Mg Vial IV PUSH Q12HR PA Propranolol HCl 120 mg 08/26/24 21:00 08/29/24 21:16 Propranolol Hcl 60 Mg Capsule Cr PO Not Given HS AP Sodium Bicarbonate 650 mg 08/27/24 22:10 08/30/24 10:43 Sodium Bicarbonate Tab 650 Mg Tablet PO Not Given BID PA Sucralfate 1 gm 08/26/24 11:30 08/30/24 10:44 Sucralfate 1 Gm Tablet PO Not Given ACHS PA Thiamine HCl 100 mg 08/29/24 12:55 08/30/24 10:43 Thiamine Hcl 100 Mg Tablet PO Not Given QAM PA Vancomycin HCl 1 each 08/30/24 12:42 Vancomycin For Acute Kidney Injury IVPB PRN PRN Vancomycin Protocol Radiology Results: ITS Impressions Renal Ultrasound 08/28/24 09:25 IMPRESSION: No hydronephrosis or renal calculi. Findings suggesting medical renal disease. Abdomen Ultrasound 08/28/24 11:48 IMPRESSION: Limited evaluation of the pancreas secondary to overlying bowel gas. Trace perihepatic free fluid. Phasic flow within the portal vein. Hepatomegaly. Single static measurement of the common bile duct is 4 mm, a significant difference from recent CT examination for which MRCP (may be performed without intravenous contrast) is recommended for confirmation. Chest CT 08/29/24 18:13 IMPRESSION: 1. Pneumonia involving the right upper and lower lobe. 2. Bilateral pleural effusion more on the right side with adjacent atelectasis versus pneumonia. 3. Tracheobronchomalacia. 4. Cardiomegaly with congestive haley. Chest X-Ray 08/30/24 09:21 IMPRESSION: 1. Airspace opacity right lung most prominent in the right upper and middle lobes which could represent atelectasis and/or pneumonia. 2. Cardiomegaly with enlargement of the central pulmonary arteries consistent with pulmonary arterial hypertension. Labs Labs: Laboratory Results - last 24 hr 08/29/24 08/29/24 08/30/24 17:40 17:59 00:15 WBC RBC Hgb Hct MCV MCH MCHC RDW Plt Count MPV Immature Gran % (Auto) Neut % (Auto) Lymph % (Auto) [place] % (Auto) Eos % (Auto) Baso % (Auto) Lymph # (Auto) [place] # (Auto) Eos # (Auto) Baso # (Auto) Abs Immat Gran (auto) Absolute Neuts (auto) Absolute Nucleated RBC Nucleated RBC % % Immature Plt Fraction Puncture Site Left radial ABG pH 7.379 ABG pCO2 44.9 ABG pO2 67.0 L ABG PO2/FiO2 Ratio 0.96 ABG HCO3 25.9 ABG O2 Saturation 92.9 L ABG O2 Content 12.6 L ABG Base Excess 0.6 A-a Gradient 383.8 Oxyhemoglobin 91.3 Total Hemoglobin 9.8 L O2 Delivery Device Non-invasive vent O2 Liters/Min Not Reportable Vent Rate 12 FiO2 70 Expiratory Pressure 8 Inspiratory Pressure 14 Sodium Potassium Chloride Carbon Dioxide Anion Gap BUN Creatinine Estim Creat Clear Calc Estimated GFR Glucose POC Capillary Glucose 139 H 127 H Lactic Acid Calcium Magnesium Total Bilirubin AST ALT Alkaline Phosphatase NT-Pro-B Natriuret Pep Total Protein Albumin Procalcitonin 07/01/1408/30/24 08/30/24 03:51 11:00 11:06 WBC 7.5 RBC 2.66 L Hgb 8.9 L Hct 28.6 L MCV 107.5 H MCH 33.5 MCHC 31.1 L RDW 14.1 Plt Count 109 L MPV 10.0 Immature Gran % (Auto) 0.8 H Neut % (Auto) 78.4 H Lymph % (Auto) 8.3 L [place] % (Auto) 11.9 H Eos % (Auto) 0.5 Baso % (Auto) 0.1 L Lymph # (Auto) 0.62 L [place] # (Auto) 0.9 H Eos # (Auto) 0.0 Baso # (Auto) 0.0 Abs Immat Gran (auto) 0.06 H Absolute Neuts (auto) 5.8 Absolute Nucleated RBC 0.000 Nucleated RBC % 0.0 % Immature Plt Fraction 5.3 Puncture Site Right radial ABG pH 7.357 ABG pCO2 48.2 H ABG pO2 69.6 L ABG PO2/FiO2 Ratio 0.87 ABG HCO3 26.4 H ABG O2 Saturation 93.2 L ABG O2 Content 13.9 L ABG Base Excess 0.5 A-a Gradient 450.2 Oxyhemoglobin 91.4 Total Hemoglobin 10.8 L O2 Delivery Device Bipap O2 Liters/Min Not Reportable Vent Rate FiO2 80 Expiratory Pressure 8 Inspiratory Pressure 16 Sodium 133 L Potassium 3.9 Chloride 95 L Carbon Dioxide 28 Anion Gap 10 BUN 47 H Creatinine 3.65 H Estim Creat Clear Calc 24 Estimated GFR 17 L Glucose 119 H POC Capillary Glucose Lactic Acid 0.6 L Calcium 8.7 Magnesium 2.5 H Total Bilirubin 1.3 AST 138 H ALT 108 H Alkaline Phosphatase 77 NT-Pro-B Natriuret Pep 4460 H Total Protein 7.8 Albumin 3.7 Procalcitonin 0.2 08/30/24 12:26 WBC RBC Hgb Hct MCV MCH MCHC RDW Plt Count MPV Immature Gran % (Auto) Neut % (Auto) Lymph % (Auto) [place] % (Auto) Eos % (Auto) Baso % (Auto) Lymph # (Auto) [place] # (Auto) Eos # (Auto) Baso # (Auto) Abs Immat Gran (auto) Absolute Neuts (auto) Absolute Nucleated RBC Nucleated RBC % % Immature Plt Fraction Puncture Site ABG pH ABG pCO2 ABG pO2 ABG PO2/FiO2 Ratio ABG HCO3 ABG O2 Saturation ABG O2 Content ABG Base Excess A-a Gradient Oxyhemoglobin Total Hemoglobin O2 Delivery Device O2 Liters/Min Vent Rate FiO2 Expiratory Pressure Inspiratory Pressure Sodium Potassium Chloride Carbon Dioxide Anion Gap BUN Creatinine Estim Creat Clear Calc Estimated GFR Glucose POC Capillary Glucose 112 H Lactic Acid Calcium Magnesium Total Bilirubin AST ALT Alkaline Phosphatase NT-Pro-B Natriuret Pep Total Protein Albumin Procalcitonin
[2024-08-30] MEDS: IPRATROPIUM BR 0.02% INH SOLN 0.5 MG/2.5 ML VIAL INHALATION ×2 (13:49→19:22)
[2024-08-30] MEDS: ACETYLCYSTEINE 20% INHAL SOLN 800 MG/4 ML VIAL 200 MG INHALATION ×2 (13:50→19:22)
--- NOTE | 2024-08-30 14:07 | PCSTNOTE ---
Please refer to the Bedside Swallow Evaluation in the EMR. Please note, silent aspiration cannot be ruled out at bedside. The pt was seen for a bedside swallow evaluation due to witnessed coughing and choking x2 with pills. Pt's significant other downplayed difficulty & stated it happens occasionally since an anterior neck surgery he had; she also stated that maybe he's having difficulty because he's been so sleepy. The pt was positioned upright in the bed but was so sleepy he had difficulty holding up his head (finally propped with a pillow). Natural dentition is in good condition. Vocal quality was clear. Oral motor exam revealed reduced lingual and labial ROM and strength. Pt was presented with 5 ml trials of thin liquid and tsp amounts of pudding. The oral stages appeared intact and the pharyngeal swallow reflex appeared timely but laryngeal elevation was somewhat weak. Intermittent coughing occurred with both consistencies. At that time, it was determined that an MBS was warranted to further assess swallow function and rule out aspiration. Impression/Recommendations: questionable degree of dysphagia due to intermittent overt s/s of aspiration. MBS recommended; NPO til MBS
[2024-08-30] MEDS: DOXYCYCLINE IV 100 MG in SODIUM CHLORIDE 0.9% IV 100 ML IVPB (14:44)
[2024-08-30 15:11] LABS: Influenza A QL RT-PCR Negative (Negative); Influenza B QL RT-PCR Negative (Negative); RSV RNA, RT-PCR Negative (Negative); SARS-CoV-2 RNA PCR Negative (Negative)
[2024-08-30 15:15] LABS: Lipase 2247 U/L (23-300)
[2024-08-30 15:34] LABS: MRSA (PCR) NOT DETECTED (NOT DETECTE)
--- NOTE | 2024-08-30 15:40 | PCSTNOTE ---
Please refer to the Modified Barium Swallow Evaluation in the EMR. Pt was seen for an MBS due to intermittent coughing occurring during the bedside swallow evaluation. Pt reported having extensive cervical surgery where they put in 4 plates, 10 discs, and 2 rods. Pt was admitted after a fall. Pt was slightly more alert c/t bedside swallow evaluation. Pt was seated completely upright for a lateral view and presented with thin 5 ml of thin liquid barium via a spoon, pudding consistency barium via a spoon, cracker pieces coated with barium pudding via a spoon, and uncontrolled thin liquid barium. This was presented via a cup & straw. A barium pill was also tested and given with water. Oral preparatory and oral phase symptoms: none. Pharyngeal phase symptoms: within functional limits; trace and very shallow laryngeal penetration occurred (thin and solids) but was cleared. Trace/mild pharyngeal residual was exhibited after the pudding consistency but was I cleared when pt dry swallowed. Esophageal stage symptoms: none. Overall, no aspiration occurred. Impressions/Recommendations: Functional swallow Ability; level 7 regular diet and level 0 regular liquids; pt should be positioned completely upright with all oral intake and with med pass. No further ST is warranted at this time.
--- NOTE | 2024-08-30 16:16 | PM.IMPN ---
Progress Note: A&P Assessment and Plan (1) Acute on chronic diastolic heart failure: Code(s): I50.33 - Acute on chronic diastolic (congestive) heart failure Status: Acute (2) Elevated troponin: Code(s): R79.89 - Other specified abnormal findings of blood chemistry Status: Inactive (3) Demand ischemia: Code(s): I24.89 - Other forms of acute ischemic heart disease Status: Inactive (4) Atrial fibrillation with rapid ventricular response: Code(s): I48.91 - Unspecified atrial fibrillation Status: Inactive (5) CHF (congestive heart failure): Qualifiers: Heart failure chronicity: acute Heart failure type: unspecified Qualified Code(s): I50.9 - Heart failure, unspecified Code(s): I50.9 - Heart failure, unspecified Status: Inactive (6) Alcohol abuse: Code(s): F10.10 - Alcohol abuse, uncomplicated Status: Acute Plan Afib with RVR ECHO showed normal EF 60-65% Continue cardizem 90mg Q8, discharge on 240mg daily Patient not on Anticoagulation due to PUD; LAAO outpatient cardiology following Acute hypoxemic respiratory failure likely from Pneumonia vs COPD Continue abx and bronchodilators Pulmonology consulted continue BiPAP and titrate oxygen monitor Pneumonia CXR reviewed continue Zosyn and Doxycycline MRSA negative Monitor cultures Elevated troponin Likely demand ischemia PATRICA Cr 4.2, baseline normal Cr 3.5 today Continue IVF, US renal no obstruction Nephrology following Hematuria CT AP ordered and urology consulted Alcoholic hepatitis with possible Liver cirrhosis Per Gi eval patient qualifies steroid Started prednisone ALT 162/AST 343 GI following Alcohol withdrawal LAD 4/ continue CIWA protocol monitor Hematuria urology evaluated and noted it was likely from trauma improving Urology following GI evaluated and noted no significant bile duct dilation, no MRCP recommended DVT prophylaxis on SCDs, no AC due to hematuria, restart once hematuria resolved Subjective Date/time seen: 08/30/24 16:16 Interval history: Comfortable at bedside Review of Systems Review of Systems: As per HPI Exam Narrative: Morbidly obese Patient is comfortable, NAD HEENT: eyes are clear and none icteric LUNGS: Irregularly irregular tachy HEART: RR S1S2 ABD: BS+, Soft and nontender Lower extremities: no edema SKIN: nonjaundiced Neuro: grossly intact. Objective Data Vital Signs Vital Signs: Vital Signs - 24 hr 08/29/24 17:14 08/29/24 18:00 08/29/24 20:00 Temperature 97.7 F Pulse Rate 67 66 66 Pulse Rate [Bilateral Pedal (Dorsalis Pedis) Palpation] Respiratory Rate 22 H 23 H Blood Pressure 119/61 Pulse Oximetry 93 91 Oxygen Delivery Oxygen Flow Rate Fraction of Inspired Oxygen 08/29/24 20:00 08/29/24 20:00 08/29/24 20:00 Temperature Pulse Rate 78 65 Pulse Rate [Bilateral Pedal (Dorsalis Pedis) Palpation] 74 Respiratory Rate Blood Pressure Pulse Oximetry 97 Oxygen Delivery BiPAP Oxygen Flow Rate Fraction of Inspired Oxygen 40 08/29/24 20:52 08/29/24 21:16 08/29/24 22:00 Temperature Pulse Rate 87 80 62 Pulse Rate [Bilateral Pedal (Dorsalis Pedis) Palpation] Respiratory Rate 34 H Blood Pressure Pulse Oximetry 92 Oxygen Delivery Oxygen Flow Rate Fraction of Inspired Oxygen 08/30/24 00:00 08/30/24 00:00 08/30/24 00:00 Temperature 97.7 F Pulse Rate 84 86 Pulse Rate [Bilateral Pedal (Dorsalis Pedis) Palpation] Respiratory Rate 20 Blood Pressure 118/78 Pulse Oximetry 94 94 Oxygen Delivery BiPAP Oxygen Flow Rate 14 Fraction of Inspired Oxygen 40 08/30/24 02:00 08/30/24 02:25 08/30/24 04:00 Temperature Pulse Rate 68 86 Pulse Rate [Bilateral Pedal (Dorsalis Pedis) Palpation] 88 Respiratory Rate 16 Blood Pressure Pulse Oximetry 93 Oxygen Delivery Oxygen Flow Rate Fraction of Inspired Oxygen 08/30/24 04:00 08/30/24 04:00 08/30/24 04:00 Temperature 97.8 F Pulse Rate 88 88 88 Pulse Rate [Bilateral Pedal (Dorsalis Pedis) Palpation] Respiratory Rate 20 Blood Pressure 117/74 Pulse Oximetry 94 94 Oxygen Delivery BiPAP Oxygen Flow Rate 14 Fraction of Inspired Oxygen 40 08/30/24 06:00 08/30/24 08:00 08/30/24 08:00 Temperature 98.4 F Pulse Rate 93 94 Pulse Rate [Bilateral Pedal (Dorsalis Pedis) Palpation] 95 Respiratory Rate 21 H Blood Pressure 114/68 Pulse Oximetry 94 Oxygen Delivery Oxygen Flow Rate Fraction of Inspired Oxygen 08/30/24 08:40 08/30/24 12:33 08/30/24 13:51 Temperature 97.2 F L Pulse Rate 86 101 H 97 Pulse Rate [Bilateral Pedal (Dorsalis Pedis) Palpation] Respiratory Rate 13 24 H 20 Blood Pressure 126/62 Pulse Oximetry 95 92 Oxygen Delivery BiPAP Oxygen Flow Rate Fraction of Inspired Oxygen 08/30/24 14:04 Temperature Pulse Rate Pulse Rate [Bilateral Pedal (Dorsalis Pedis) Palpation] Respiratory Rate Blood Pressure Pulse Oximetry 93 Oxygen Delivery High Flow Nasal Cannula Oxygen Flow Rate 10 Fraction of Inspired Oxygen Intake/Output Intake/Output: Intake & Output 08/27/24 08/28/24 08/29/24 08/30/24 23:59 23:59 23:59 23:59 Intake Total 3135.8 470 1110 100 Output Total 310 193 445 8455 Balance 2825.8 -130 160 -3550 Meds/Results Medications: Active Medications Generic Name Dose Route Start Last Admin Trade Name Freq PRN Reason Stop Dose Admin Acetaminophen 650 mg 08/26/24 06:26 08/28/24 16:54 Acetaminophen 325 Mg Tablet PO 650 mg Q4H PRN Administration Mild Pain (1-3) or Fever Acetylcysteine 200 mg 08/30/24 14:00 08/30/24 13:50 Acetylcysteine 20% Inhal Soln 800 Mg/4 Ml Vial INHALATION 200 mg Q6HRT PA Administration Al Hydrox/Mg Hydrox/Simethicone 30 ml 08/26/24 06:26 Mag Hydrox/Al Hydrox/Simeth 30 Ml Udc PO QID PRN Dyspepsia Amlodipine Besylate 10 mg 08/26/24 09:00 08/28/24 08:48 Amlodipine Besylate 10 Mg Tablet PO Not Given DAILY [facility] Bisacodyl 5 mg 08/26/24 06:26 Bisacodyl 5 Mg Tablet Ec PO DAILY PRN Constipation Diltiazem HCl 30 mg/ Diltiazem 90 mg 08/27/24 10:15 08/30/24 14:22 HCl 60 mg PO Not Given Q8HR [facility] Fish Oil 2 gm 08/26/24 09:00 08/30/24 10:43 [place]an 3 Polyunsat Fatty Acids 1 Gm Cap PO Not Given BID [facility] Folic Acid 1 mg 08/29/24 12:55 08/30/24 10:42 Folic Acid 1 Mg Tablet PO Not Given DAILY [facility] Furosemide 20 mg 08/26/24 09:00 08/27/24 08:48 Furosemide 20 Mg Tablet PO 20 mg DAILY PA Administration Furosemide 40 mg 08/30/24 10:25 08/30/24 10:50 Furosemide Inj 40 Mg/4 Ml Vial IV PUSH 40 mg BID PA Administration Guaifenesin 1,200 mg 08/30/24 21:00 Guaifenesin 12 Hr 600 Mg Tabcr PO Q12HR PA Hydrochlorothiazide 25 mg 08/26/24 09:00 08/27/24 08:48 Hydrochlorothiazide 25 Mg Tablet PO 25 mg DAILY PA Administration Piperacillin Sod/Tazobactam 50 mls @ 100 mls/hr 08/30/24 21:00 Sod 3.375 gm/ Sodium Chloride IVPB Q6H PA Doxycycline Hyclate 100 mg/ 100 mls @ 100 mls/hr 08/30/24 04:00 Sodium Chloride IVPB Q12H PA Ipratropium Mcconnell 0.5 mg 08/30/24 14:00 08/30/24 13:49 Ipratropium Br 0.02% Inh Soln 0.5 Mg/2.5 Ml Vial INHALATION 0.5 mg Q6HRT PA Administration Irbesartan 150 mg 08/26/24 09:00 08/28/24 08:48 Irbesartan 150 Mg Tablet PO Not Given DAILY PA Levalbuterol HCl 0.63 mg 08/30/24 14:00 08/30/24 13:49 Levalbuterol Neb 1.25 Mg/3 Ml INHALATION 0.63 mg Q6HRT PA Administration Lorazepam 2 mg 08/26/24 21:53 Lorazepam Inj (*Crx) 2 Mg/Ml Vial IV PUSH Q2H PRN CIWA > 15 Lorazepam 2 mg 08/26/24 21:53 08/30/24 10:55 Lorazepam Inj (*Crx) 2 Mg/Ml Vial IV PUSH 2 mg Q4H PRN Administration CIWA 8-15 Lovastatin 40 mg 08/26/24 21:00 08/29/24 21:16 Lovastatin 20 Mg Tablet PO Not Given HS PA Magnesium Oxide 400 mg 08/26/24 09:00 08/30/24 10:43 Magnesium Oxide 400 Mg Tablet PO Not Given DAILY PA Methylprednisolone Sodium Succinate 40 mg 08/30/24 14:00 08/30/24 14:23 Methylprednisolone Sod Succ 40 Mg Vial IV PUSH Not Given Q8HR [facility] Multivitamins Therapeutic 1 tablet 08/26/24 09:00 08/30/24 10:43 Multivitamins Therapeutic Tab (*Bkc) PO Not Given DAILY PA Pantoprazole Sodium 40 mg 08/30/24 21:00 Pantoprazole Sodium Iv 40 Mg Vial IV PUSH Q12HR [facility] Propranolol HCl 120 mg 08/26/24 21:00 08/29/24 21:16 Propranolol Hcl 60 Mg Capsule Cr PO Not Given HS PA Sodium Bicarbonate 650 mg 08/27/24 22:10 08/30/24 10:43 Sodium Bicarbonate Tab 650 Mg Tablet PO Not Given BID PA Sucralfate 1 gm 08/26/24 11:30 08/30/24 10:44 Sucralfate 1 Gm Tablet PO Not Given ACHS [facility] Thiamine HCl 100 mg 08/29/24 12:55 08/30/24 10:43 Thiamine Hcl 100 Mg Tablet PO Not Given QAM [facility] Radiology Results: ITS Impressions Renal Ultrasound 08/28/24 09:25 IMPRESSION: No hydronephrosis or renal calculi. Findings suggesting medical renal disease. Abdomen Ultrasound 08/28/24 11:48 IMPRESSION: Limited evaluation of the pancreas secondary to overlying bowel gas. Trace perihepatic free fluid. Phasic flow within the portal vein. Hepatomegaly. Single static measurement of the common bile duct is 4 mm, a significant difference from recent CT examination for which MRCP (may be performed without intravenous contrast) is recommended for confirmation. Chest CT 08/29/24 18:13 IMPRESSION: 1. Pneumonia involving the right upper and lower lobe. 2. Bilateral pleural effusion more on the right side with adjacent atelectasis versus pneumonia. 3. Tracheobronchomalacia. 4. Cardiomegaly with congestive haley. Chest X-Ray 08/30/24 09:21 IMPRESSION: 1. Airspace opacity right lung most prominent in the right upper and middle lobes which could represent atelectasis and/or pneumonia. 2. Cardiomegaly with enlargement of the central pulmonary arteries consistent with pulmonary arterial hypertension. Venous Doppler Study 08/30/24 13:26 IMPRESSION: 1. No deep venous thrombosis. Labs Labs: Laboratory Results - last 24 hr 08/29/24 08/29/24 08/30/24 17:40 17:59 00:15 WBC RBC Hgb Hct MCV MCH MCHC RDW Plt Count MPV Immature Gran % (Auto) Neut % (Auto) Lymph % (Auto) [place] % (Auto) Eos % (Auto) Baso % (Auto) Lymph # (Auto) [place] # (Auto) Eos # (Auto) Baso # (Auto) Abs Immat Gran (auto) Absolute Neuts (auto) Absolute Nucleated RBC Nucleated RBC % % Immature Plt Fraction Puncture Site Left radial ABG pH 7.379 ABG pCO2 44.9 ABG pO2 67.0 L ABG PO2/FiO2 Ratio 0.96 ABG HCO3 25.9 ABG O2 Saturation 92.9 L ABG O2 Content 12.6 L ABG Base Excess 0.6 A-a Gradient 383.8 Oxyhemoglobin 91.3 Total Hemoglobin 9.8 L O2 Delivery Device Non-invasive vent O2 Liters/Min Not Reportable Vent Rate 12 FiO2 70 Expiratory Pressure 8 Inspiratory Pressure 14 Sodium Potassium Chloride Carbon Dioxide Anion Gap BUN Creatinine Estim Creat Clear Calc Estimated GFR Glucose POC Capillary Glucose 139 H 127 H Lactic Acid Calcium Magnesium Total Bilirubin AST ALT Alkaline Phosphatase NT-Pro-B Natriuret Pep Total Protein Albumin Lipase Procalcitonin Nasal MRSA (PCR) Chlamy pneumoniae PCR Adenovirus (PCR) B. pertussis DNA (PCR) B.parapertussis DNA PCR Coronavirus OC43 (PCR) Coronavirus HKU1 (PCR) Coronavirus 229E (PCR) Coronavirus NL63 (PCR) Human Metapneumovir PCR Influenza A (RT-PCR) Influenza A (H1) PCR Influ A (H1/09) PCR Influenza A (H3) PCR Influenza Type A (PCR) Influenza B (RT-PCR) Influenza Type B (PCR) M. pneumoniae (PCR) Parainfluenza 1 (PCR) Parainfluenza 2 (PCR) Parainfluenza 3 (PCR) Parainfluenza 4 (PCR) RSV (RT-PCR) RSV (PCR) Entero/Rhino (PCR) SARS-CoV-2 (PCR) SARS-CoV-2 RNA (RT-PCR) 08/30/24 08/30/24 08/30/24 03:51 11:00 11:06 WBC 7.5 RBC 2.66 L Hgb 8.9 L Hct 28.6 L MCV 107.5 H MCH 33.5 MCHC 31.1 L RDW 14.1 Plt Count 109 L MPV 10.0 Immature Gran % (Auto) 0.8 H Neut % (Auto) 78.4 H Lymph % (Auto) 8.3 L [place] % (Auto) 11.9 H Eos % (Auto) 0.5 Baso % (Auto) 0.1 L Lymph # (Auto) 0.62 L [place] # (Auto) 0.9 H Eos # (Auto) 0.0 Baso # (Auto) 0.0 Abs Immat Gran (auto) 0.06 H Absolute Neuts (auto) 5.8 Absolute Nucleated RBC 0.000 Nucleated RBC % 0.0 % Immature Plt Fraction 5.3 Puncture Site Right radial ABG pH 7.357 ABG pCO2 48.2 H ABG pO2 69.6 L ABG PO2/FiO2 Ratio 0.87 ABG HCO3 26.4 H ABG O2 Saturation 93.2 L ABG O2 Content 13.9 L ABG Base Excess 0.5 A-a Gradient 450.2 Oxyhemoglobin 91.4 Total Hemoglobin 10.8 L O2 Delivery Device Bipap O2 Liters/Min Not Reportable Vent Rate FiO2 80 Expiratory Pressure 8 Inspiratory Pressure 16 Sodium 133 L Potassium 3.9 Chloride 95 L Carbon Dioxide 28 Anion Gap 10 BUN 47 H Creatinine 3.65 H Estim Creat Clear Calc 24 Estimated GFR 17 L Glucose 119 H POC Capillary Glucose Lactic Acid 0.6 L Calcium 8.7 Magnesium 2.5 H Total Bilirubin 1.3 AST 138 H ALT 108 H Alkaline Phosphatase 77 NT-Pro-B Natriuret Pep 4460 H Total Protein 7.8 Albumin 3.7 Lipase 2247 H Procalcitonin 0.2 Nasal MRSA (PCR) Chlamy pneumoniae PCR Adenovirus (PCR) B. pertussis DNA (PCR) B.parapertussis DNA PCR Coronavirus OC43 (PCR) Coronavirus HKU1 (PCR) Coronavirus 229E (PCR) Coronavirus NL63 (PCR) Human Metapneumovir PCR Influenza A (RT-PCR) Influenza A (H1) PCR Influ A (H1/09) PCR Influenza A (H3) PCR Influenza Type A (PCR) Influenza B (RT-PCR) Influenza Type B (PCR) M. pneumoniae (PCR) Parainfluenza 1 (PCR) Parainfluenza 2 (PCR) Parainfluenza 3 (PCR) Parainfluenza 4 (PCR) RSV (RT-PCR) RSV (PCR) Entero/Rhino (PCR) SARS-CoV-2 (PCR) SARS-CoV-2 RNA (RT-PCR) 08/30/24 08/30/24 12:26 13:54 WBC RBC Hgb Hct MCV MCH MCHC RDW Plt Count MPV Immature Gran % (Auto) Neut % (Auto) Lymph % (Auto) [place] % (Auto) Eos % (Auto) Baso % (Auto) Lymph # (Auto) [place] # (Auto) Eos # (Auto) Baso # (Auto) Abs Immat Gran (auto) Absolute Neuts (auto) Absolute Nucleated RBC Nucleated RBC % % Immature Plt Fraction Puncture Site ABG pH ABG pCO2 ABG pO2 ABG PO2/FiO2 Ratio ABG HCO3 ABG O2 Saturation ABG O2 Content ABG Base Excess A-a Gradient Oxyhemoglobin Total Hemoglobin O2 Delivery Device O2 Liters/Min Vent Rate FiO2 Expiratory Pressure Inspiratory Pressure Sodium Potassium Chloride Carbon Dioxide Anion Gap BUN Creatinine Estim Creat Clear Calc Estimated GFR Glucose POC Capillary Glucose 112 H Lactic Acid Calcium Magnesium Total Bilirubin AST ALT Alkaline Phosphatase NT-Pro-B Natriuret Pep Total Protein Albumin Lipase Procalcitonin Nasal MRSA (PCR) Not detected Chlamy pneumoniae PCR Cancelled Adenovirus (PCR) Cancelled B. pertussis DNA (PCR) Cancelled B.parapertussis DNA PCR Cancelled Coronavirus OC43 (PCR) Cancelled Coronavirus HKU1 (PCR) Cancelled Coronavirus 229E (PCR) Cancelled Coronavirus NL63 (PCR) Cancelled Human Metapneumovir PCR Cancelled Influenza A (RT-PCR) Negative Influenza A (H1) PCR Cancelled Influ A (H1/09) PCR Cancelled Influenza A (H3) PCR Cancelled Influenza Type A (PCR) Cancelled Influenza B (RT-PCR) Negative Influenza Type B (PCR) Cancelled M. pneumoniae (PCR) Cancelled Parainfluenza 1 (PCR) Cancelled Parainfluenza 2 (PCR) Cancelled Parainfluenza 3 (PCR) Cancelled Parainfluenza 4 (PCR) Cancelled RSV (RT-PCR) Negative RSV (PCR) Cancelled Entero/Rhino (PCR) Cancelled SARS-CoV-2 (PCR) Cancelled SARS-CoV-2 RNA (RT-PCR) Negative Quality VTE Prophylaxis VTE prophylaxis: mechanical ordered
[2024-08-30] MEDS: ACETAMINOPHEN 325 MG TABLET 650 MG PO (17:21)
[2024-08-30] MEDS: BISACODYL 5 MG TABLET EC PO (17:22)
[2024-08-30] MEDS: SODIUM BICARBONATE TAB 650 MG TABLET PO (17:22)
[2024-08-30] MEDS: OMEGA 3 POLYUNSAT FATTY ACIDS 1 GM CAP 2 GM PO (17:22)
[2024-08-30] MEDS: SUCRALFATE 1 GM TABLET PO ×2 (17:22→21:14)
[2024-08-30] MEDS: WATER FOR IRRIGATION, STERILE 1,000 ML BOTTLE 1000 ML (19:50)
[2024-08-30] MEDS: guaiFENesin 12 HR 600 MG TABCR 1200 MG PO (21:14)
[2024-08-30] MEDS: PROPRANOLOL HCL 60 MG CAPSULE CR 120 MG PO (21:14)
[2024-08-30] MEDS: LOVASTATIN 20 MG TABLET 40 MG PO (21:14)
[2024-08-30] MEDS: dilTIAZem HCL TAB 30 MG, dilTIAZem HCL TAB 60 MG 90 MG PO (21:14)
[2024-08-31] VITALS (35 sets, daily range): BP systolic 120–139; BP diastolic 68–80; PULSE 64–114; RESP 14–23; TEMP 36.1–36.9; O2SAT 86–98
[2024-08-31] MEDS: ACETYLCYSTEINE 20% INHAL SOLN 800 MG/4 ML VIAL 200 MG INHALATION ×4 (01:49→20:26)
[2024-08-31] MEDS: IPRATROPIUM BR 0.02% INH SOLN 0.5 MG/2.5 ML VIAL INHALATION ×4 (01:50→20:26)
[2024-08-31] MEDS: PIPERACILLIN/TAZOBACTAM SOD 3.375 GM in SODIUM CHLORIDE 0.9% IV 50 ML 100 ML IVPB ×4 (02:55→21:50)
[2024-08-31 04:32] LABS: Hematocrit 30.1 % (42.0-52.0); Hemoglobin 9.6 g/dL (14.0-18.0); Immature Granulocyte Percent A 0.4 % (0-0.5); Lymphocytes Absolute Auto 0.30 K/mm3 (0.9-3.2); Mean Corpuscular HGB Conc 31.9 g/dl (32-36); Mean Corpuscular Hemoglobin 33.7 pg (26-34); Mean Corpuscular Volume 105.6 fl (80-100); Nucleated Red Blood Cells Absolute Auto 0.000 K/mm3 (0.0-0.012); Nucleated Red Blood Cells Perc 0.0 % (0.0-0.2); Platelet Count Result 104 k/mm3 (150-375); Red Blood Count 2.85 M/mm3 (4.6-6.20); White Blood Count 4.9 K/mm3 (4.5-10.0)
[2024-08-31] MEDS: ACETAMINOPHEN 325 MG TABLET 650 MG PO ×5 (04:45→22:14)
[2024-08-31] MEDS: DOXYCYCLINE IV 100 MG in SODIUM CHLORIDE 0.9% IV 100 ML IVPB ×2 (04:46→16:00)
[2024-08-31] MEDS: SUCRALFATE 1 GM TABLET PO ×4 (04:46→21:50)
[2024-08-31] MEDS: dilTIAZem HCL TAB 30 MG, dilTIAZem HCL TAB 60 MG 90 MG PO ×3 (04:46→21:49)
[2024-08-31 04:53] LABS: Anisocytosis 1+; Band Neutrophils Percent 0 % (0-6); Hypochromasia 1+; Ovalocytes 1+; Schistocytes None Seen
[2024-08-31 04:55] LABS: Alanine Aminotransferase 91 U/L (6-50); Albumin Level 3.7 g/dL (3.5-5.1); Alkaline Phosphatase 82 U/L (38-126); Anion Gap 10 mmol/L (4-12); Aspartate Amino Transferase 87 U/L (17-59); Bilirubin,Total 1.0 mg/dL (0.2-1.3); Blood Urea Nitrogen 41 mg/dL (9-20); Calcium 8.9 mg/dL (8.4-10.2); Carbon Dioxide 34 mmol/L (22-30); Chloride 92 mmol/L (98-107); Estimated CRCL calculation 33 ml/min; Estimated Glomerular Filt Rate 25; Glucose 138 mg/dL (65-110); Magnesium 2.0 mg/dL (1.6-2.3); Potassium 3.6 mmol/L (3.4-5.0); Sodium 136 mmol/L (137-145); Total Protein 7.9 g/dL (6.3-8.2)
[2024-08-31] MEDS: LORazepam INJ (*CRX) 2 MG/ML VIAL IV PUSH ×4 (05:03→21:51)
[2024-08-31] MEDS: OMEGA 3 POLYUNSAT FATTY ACIDS 1 GM CAP 2 GM PO ×2 (08:30→17:40)
[2024-08-31] MEDS: THIAMINE HCL 100 MG TABLET PO (08:30)
[2024-08-31] MEDS: MULTIVITAMINS THERAPEUTIC TAB (*BKC) 1 TABLET PO (08:30)
[2024-08-31] MEDS: FOLIC ACID 1 MG TABLET PO (08:31)
[2024-08-31] MEDS: guaiFENesin 12 HR 600 MG TABCR 1200 MG PO ×2 (08:31→21:50)
[2024-08-31] MEDS: FUROSEMIDE INJ 40 MG/4 ML VIAL IV PUSH ×2 (08:31→17:40)
[2024-08-31] MEDS: PANTOPRAZOLE SODIUM IV 40 MG VIAL IV PUSH ×2 (08:31→21:50)
[2024-08-31] MEDS: SODIUM BICARBONATE TAB 650 MG TABLET PO ×2 (08:31→17:40)
[2024-08-31] MEDS: MAGNESIUM OXIDE 400 MG TABLET PO (08:32)
--- NOTE | 2024-08-31 10:22 | WPDCNPSYCH ---
Assessment and Plan Assessment and plan (1) Depression: Qualifiers: Depression Type: major depressive disorder Major depression recurrence: recurrent Active/Remission status: currently active Major depression episode severity: moderate Qualified Code(s): F33.1 - Major depressive disorder, recurrent, moderate Code(s): F32.A - Depression, unspecified Status: Acute (2) Alcohol abuse: Code(s): F10.10 - Alcohol abuse, uncomplicated Status: Acute Plan Patient with no history of psychiatric treatment presenting with acute alcohol withdrawal, depressed mood. Exhibits depressed mood throughout interview and tearful at times- compounded by several factors including loss of independence, complex medical care, social stressors with children. He is agreeable to starting medication for depression, likely would benefit from long-term behavioral healthcare following admission. Recommendations: -Start sertraline 25mg daily for mood support -Cont CIWA protocol -Follow up with outpatient psychiatry for continued care following discharge HPI Data of Consult Date/Time: 08/31/24 10:22 Requesting Physician: Johana Thompson DO Primary Care Provider: Kel Hope MD Consult Narrative Narrative: Jose Davidson is a 63-year-old male with known hx AFib and off his Eliquis at this time for peptic ulcer disease /recent polyp removal admitted due to fall at home, shortness of breath. Psychiatry has been consulted for possible underlying depression, alcohol use disorder. Jose is alert and oriented x 4, cooperative during interview, presents with sad affect and tearful at times. He denies history of psychiatric treatment or medications, suicidal behavior, psychiatric inpatient admissions. He reports a significant history of increased alcohol use over the past three months since he retired. Since assisted, he has been drinking about 6-8 mixed vodka drinks a day, starting as early as drinking at noon. He denies current alcohol cravings, however has visible tremors during exam, currently on CIWA protocol and lorazepam PRN. No history of alcohol withdrawal related seizures or DTs. He does report a depressed mood, primarily secondary to declining health. He discusses historically being very active and enjoying bike riding, although has not been able to do this any longer due to declining physical health over past 10 years, which likely is contributing to depressed mood and subsequent alcohol use. Identifies feelings of hopelessness for improvement in his health, although denies suicidal ideation. He has never sought mental health care in the past, although recognizes depressed mood may have been present for some time. He does identify a strong support system as his girlfriend, Nadia. Denies history of vikas, psychosis, auditory/visual hallucinations. No agitation has been noted or reported during admission. Review of Systems Constitutional: Comments: Sad mood Psychiatric: Psychiatric: Reports as per HPI, Reports depression and Reports hopelessness [facility] Past Medical History Medical History (Updated 08/31/24 @ 10:41 by Mechelle Packer APRN) GERD (gastroesophageal reflux disease) Hyperlipidemia Hypertension Alcohol abuse Hypermagnesemia Family History Family History Father Acute myocardial infarction Mother Cerebrovascular accident Social History Social History Smoking packs per day: 2 Smoking cigarettes per day: 40.0 Years smoked: 30 Smoking pack-years: 60.00 Smoking status: Former smoker Tobacco type: cigarettes Second hand tobacco smoke exposure: No Smoking end date: 02/20/06 Alcohol intake: current Drinks per week: 48 Substance use: unknown Substance use type: does not use Do You Feel Safe in your Home?: Yes Lack of Transportation: No Lack of Food: Never True Current Housing: I Have Housing Concerned About Future Housing: No Difficulty Paying Gas/Electric Bills: No Difficulty Paying for Meds: No Currently Unemployed: No Education: Trade/Vocational Certificate Difficulty w/ Childcare or Family Care: No Gender identity (if verbalized by the patient): Male Sexual Orientation (if Verbalized by the Patient): Straight or Heterosexual Spiritual care concerns: No Meds Home Medications and Allergies Home Medications ?Medication ?Instructions ?Recorded ?Confirmed ?Type amlodipine 10 mg tablet 10 mg PO DAILY 04/20/22 08/26/24 History hydrochlorothiazide 25 mg tablet 25 mg PO DAILY 04/20/22 08/26/24 History irbesartan 150 mg tablet 150 mg PO DAILY 04/20/22 08/26/24 History aspirin 81 mg tablet,delayed 81 mg PO DAILY 08/26/24 08/26/24 History release (Adult Aspirin Regimen) doxycycline monohydrate 50 mg 50 mg PO DAILY 08/26/24 08/26/24 History capsule furosemide 20 mg tablet 20 mg PO DAILY 08/26/24 08/26/24 History lovastatin 40 mg tablet 40 mg PO HS 08/26/24 08/26/24 History magnesium 200 mg tablet 400 mg PO DAILY 08/26/24 08/26/24 History multivitamin (Daily Multi-Vitamin 1 tablet PO DAILY 08/26/24 08/26/24 History tablet) omega 1-dny-vex-fish oil 100 2 cap PO BID 08/26/24 08/26/24 History mg-160 mg-1,000 mg capsule (Fish Oil) pantoprazole 40 mg tablet,delayed 40 mg PO BID 08/26/24 08/26/24 History release propranolol 120 mg capsule,24 120 mg PO HS 08/26/24 08/26/24 History hr,extended release sucralfate 1 gram tablet 1 g PO .with meals and HS 08/26/24 08/26/24 History Allergies Allergy/AdvReac Type Severity Reaction Status Date / Time azithromycin Allergy Unknown Verified 08/26/24 00:59 ezetimibe (From Vytorin) Allergy Unknown Verified 08/26/24 00:59 simvastatin (From Vytorin) Allergy Unknown Verified 08/26/24 00:59 Vital Signs Vital Signs - 24 hr 08/30/24 12:00 08/30/24 12:00 08/30/24 12:00 Temperature Pulse Rate 98 Pulse Rate [Bilateral Pedal (Dorsalis Pedis) Palpation] 98 Respiratory Rate Blood Pressure Pulse Oximetry 94 Oxygen Delivery High Flow Therapy with Na Oxygen Flow Rate 10 Fraction of Inspired Oxygen 08/30/24 12:33 08/30/24 13:51 08/30/24 14:00 Temperature 97.2 F L Pulse Rate 101 H 97 107 H Pulse Rate [Bilateral Pedal (Dorsalis Pedis) Palpation] Respiratory Rate 24 H 20 Blood Pressure 126/62 Pulse Oximetry 92 Oxygen Delivery Oxygen Flow Rate Fraction of Inspired Oxygen 08/30/24 14:04 08/30/24 16:00 08/30/24 16:00 Temperature 98 F Pulse Rate 105 H Pulse Rate [Bilateral Pedal (Dorsalis Pedis) Palpation] Respiratory Rate 22 H Blood Pressure 130/85 Pulse Oximetry 93 92 94 Oxygen Delivery High Flow Nasal Cannula High Flow Therapy with Na Oxygen Flow Rate 10 10 Fraction of Inspired Oxygen 08/30/24 16:00 08/30/24 18:00 08/30/24 19:22 Temperature Pulse Rate 117 H 119 H Pulse Rate [Bilateral Pedal (Dorsalis Pedis) Palpation] Respiratory Rate Blood Pressure Pulse Oximetry 92 Oxygen Delivery High Flow Nasal Cannula Oxygen Flow Rate 10 Fraction of Inspired Oxygen 08/30/24 19:22 08/30/24 19:35 08/30/24 20:00 Temperature 98 F Pulse Rate 103 H 118 H 123 H Pulse Rate [Bilateral Pedal (Dorsalis Pedis) Palpation] Respiratory Rate 20 20 22 H Blood Pressure 147/95 H Pulse Oximetry 93 Oxygen Delivery Oxygen Flow Rate Fraction of Inspired Oxygen 08/30/24 20:00 08/30/24 20:00 08/30/24 20:00 Temperature Pulse Rate 131 H Pulse Rate [Bilateral Pedal (Dorsalis Pedis) Palpation] 131 H Respiratory Rate Blood Pressure Pulse Oximetry 94 Oxygen Delivery BiPAP Oxygen Flow Rate Fraction of Inspired Oxygen 80 08/30/24 21:14 08/30/24 22:00 08/30/24 22:11 Temperature Pulse Rate 88 111 H 113 H Pulse Rate [Bilateral Pedal (Dorsalis Pedis) Palpation] Respiratory Rate 19 Blood Pressure Pulse Oximetry 94 Oxygen Delivery BiPAP Oxygen Flow Rate Fraction of Inspired Oxygen 08/30/24 23:43 08/30/24 23:46 08/31/24 00:00 Temperature 98.6 F Pulse Rate 94 76 Pulse Rate [Bilateral Pedal (Dorsalis Pedis) Palpation] Respiratory Rate 20 Blood Pressure 144/69 H Pulse Oximetry 93 93 Oxygen Delivery BiPAP Oxygen Flow Rate Fraction of Inspired Oxygen 80 08/31/24 01:50 08/31/24 01:50 08/31/24 02:00 Temperature Pulse Rate 78 78 74 Pulse Rate [Bilateral Pedal (Dorsalis Pedis) Palpation] Respiratory Rate 20 20 Blood Pressure Pulse Oximetry 93 Oxygen Delivery BiPAP Oxygen Flow Rate Fraction of Inspired Oxygen 08/31/24 02:03 08/31/24 03:23 08/31/24 04:00 Temperature Pulse Rate 83 Pulse Rate [Bilateral Pedal (Dorsalis Pedis) Palpation] 84 Respiratory Rate 18 Blood Pressure Pulse Oximetry 93 Oxygen Delivery BiPAP Oxygen Flow Rate Fraction of Inspired Oxygen 80 08/31/24 04:00 08/31/24 04:00 08/31/24 06:00 Temperature 98.5 F Pulse Rate 85 101 H 72 Pulse Rate [Bilateral Pedal (Dorsalis Pedis) Palpation] Respiratory Rate 20 Blood Pressure 124/76 Pulse Oximetry 93 Oxygen Delivery Oxygen Flow Rate Fraction of Inspired Oxygen 08/31/24 07:39 08/31/24 07:40 08/31/24 07:40 Temperature 97.6 F Pulse Rate 64 64 68 Pulse Rate [Bilateral Pedal (Dorsalis Pedis) Palpation] Respiratory Rate 23 H 23 H 18 Blood Pressure 126/70 Pulse Oximetry 95 96 Oxygen Delivery BiPAP Oxygen Flow Rate Fraction of Inspired Oxygen 08/31/24 07:42 08/31/24 08:59 08/31/24 09:12 Temperature Pulse Rate Pulse Rate [Bilateral Pedal (Dorsalis Pedis) Palpation] Respiratory Rate Blood Pressure Pulse Oximetry 95 87 L 95 Oxygen Delivery BiPAP Nasal Cannula High Flow Therapy with Na Oxygen Flow Rate 15 40 Fraction of Inspired Oxygen 100 100 Exam Const: General: cooperative Neuro: General: oriented to person, oriented to place and oriented to time Cognition (Neuro): normal cognition Speech: normal speech Psych: Mental Status: mental status grossly normal Speech and movement: Normal speech and movement present Affect: Sad affect present Attitude: cooperative Thought process: Normal thought process present Thought content: Yes Normal thought content present Insight: Fair insight present (Psych) Judgement: Fair judgement present (Psych) Results Labs 08/31/24 04:00 08/31/24 04:00 Labs: Short CBC 08/31/24 Range/Units 04:00 WBC 4.9 (4.5-10.0) K/mm3 Hgb 9.6 L (14.0-18.0) g/dL Hct 30.1 L (42.0-52.0) % Plt Count 104 L (150-375) k/mm3 [facility] [place] 08/31/24 04:00 Sodium 136 L Potassium 3.6 Chloride 92 L Carbon Dioxide 34 H BUN 41 H Creatinine 2.64 H Glucose 138 H Calcium 8.9 Liver Function 08/31/24 Range/Units 04:00 Total Bilirubin 1.0 (0.2-1.3) mg/dL AST 87 H (17-59) U/L ALT 91 H (6-50) U/L Alkaline Phosphatase 82 (38-126) U/L Albumin 3.7 (3.5-5.1) g/dL
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
--- NOTE | 2024-08-31 12:58 | P.PNIM_ITS ---
Progress Note: A&P Assessment and Plan (1) Acute on chronic diastolic heart failure: Code(s): I50.33 - Acute on chronic diastolic (congestive) heart failure Status: Acute (2) Elevated troponin: Code(s): R79.89 - Other specified abnormal findings of blood chemistry Status: Inactive (3) Demand ischemia: Code(s): I24.89 - Other forms of acute ischemic heart disease Status: Inactive (4) Atrial fibrillation with rapid ventricular response: Code(s): I48.91 - Unspecified atrial fibrillation Status: Inactive (5) CHF (congestive heart failure): Qualifiers: Heart failure chronicity: acute Heart failure type: unspecified Qualified Code(s): I50.9 - Heart failure, unspecified Code(s): I50.9 - Heart failure, unspecified Status: Inactive (6) Alcohol abuse: Code(s): F10.10 - Alcohol abuse, uncomplicated Status: Acute Plan Afib with RVR ECHO showed normal EF 60-65% Continue cardizem 90mg Q8, discharge on 240mg daily Patient not on Anticoagulation due to PUD; LAAO outpatient cardiology following Acute hypoxemic respiratory failure likely from Pneumonia vs COPD Continue abx and bronchodilators Pulmonology consulted s/p BiPAP now on 15 liters oxygen monitor Pulmonology following Pneumonia CXR reviewed continue Zosyn and Doxycycline MRSA negative Monitor cultures Elevated troponin Likely demand ischemia PATRICA Cr 4.2, baseline normal Cr 3.5 today US renal no obstruction Nephrology following Hematuria CT AP ordered and urology consulted Alcoholic hepatitis with possible Liver cirrhosis Per Gi eval patient qualifies steroid Started prednisone ALT 162/AST 343 down to 91/87 respectively GI following Alcohol withdrawal LAD / continue CIWA protocol monitor Hematuria urology evaluated and noted it was likely from trauma improving Urology following GI evaluated and noted no significant bile duct dilation, no MRCP recommended DVT prophylaxis on SCDs, no AC due to hematuria, restart once hematuria resolved Subjective Date/time seen: 08/31/24 12:58 Interval history: Comfortbale at bedside Patient sounded depressed this morning during discussion for goals of care, and tearful at times Psych was consulted and will defer goals of care discussion to HPOA Review of Systems Review of Systems: As per HPI Exam Narrative: Morbidly obese Patient is comfortable, NAD HEENT: eyes are clear and none icteric LUNGS: Irregularly irregular tachy HEART: RR S1S2 ABD: BS+, Soft and nontender Lower extremities: no edema SKIN: nonjaundiced Neuro: grossly intact. Objective Data Vital Signs Vital Signs: Vital Signs - 24 hr 08/30/24 13:51 08/30/24 14:00 08/30/24 14:04 Temperature Pulse Rate 97 107 H Pulse Rate [Bilateral Pedal (Dorsalis Pedis) Palpation] Respiratory Rate 20 Blood Pressure Pulse Oximetry 93 Oxygen Delivery High Flow Nasal Cannula Oxygen Flow Rate 10 Fraction of Inspired Oxygen 08/30/24 16:00 08/30/24 16:00 08/30/24 16:00 Temperature 98 F Pulse Rate 105 H 117 H Pulse Rate [Bilateral Pedal (Dorsalis Pedis) Palpation] Respiratory Rate 22 H Blood Pressure 130/85 Pulse Oximetry 92 94 Oxygen Delivery High Flow Therapy with Na Oxygen Flow Rate 10 Fraction of Inspired Oxygen 08/30/24 18:00 08/30/24 19:22 08/30/24 19:22 Temperature Pulse Rate 119 H 103 H Pulse Rate [Bilateral Pedal (Dorsalis Pedis) Palpation] Respiratory Rate 20 Blood Pressure Pulse Oximetry 92 Oxygen Delivery High Flow Nasal Cannula Oxygen Flow Rate 10 Fraction of Inspired Oxygen 08/30/24 19:35 08/30/24 20:00 08/30/24 20:00 Temperature 98 F Pulse Rate 118 H 123 H Pulse Rate [Bilateral Pedal (Dorsalis Pedis) Palpation] Respiratory Rate 20 22 H Blood Pressure 147/95 H Pulse Oximetry 93 94 Oxygen Delivery BiPAP Oxygen Flow Rate Fraction of Inspired Oxygen 80 08/30/24 20:00 08/30/24 20:00 08/30/24 21:14 Temperature Pulse Rate 131 H 88 Pulse Rate [Bilateral Pedal (Dorsalis Pedis) Palpation] 131 H Respiratory Rate Blood Pressure Pulse Oximetry Oxygen Delivery Oxygen Flow Rate Fraction of Inspired Oxygen 08/30/24 22:00 08/30/24 22:11 08/30/24 23:43 Temperature 98.6 F Pulse Rate 111 H 113 H 94 Pulse Rate [Bilateral Pedal (Dorsalis Pedis) Palpation] Respiratory Rate 19 20 Blood Pressure 144/69 H Pulse Oximetry 94 93 Oxygen Delivery BiPAP Oxygen Flow Rate Fraction of Inspired Oxygen 08/30/24 23:46 08/31/24 00:00 08/31/24 01:50 Temperature Pulse Rate 76 78 Pulse Rate [Bilateral Pedal (Dorsalis Pedis) Palpation] Respiratory Rate 20 Blood Pressure Pulse Oximetry 93 93 Oxygen Delivery BiPAP BiPAP Oxygen Flow Rate Fraction of Inspired Oxygen 80 08/31/24 01:50 08/31/24 02:00 08/31/24 02:03 Temperature Pulse Rate 78 74 83 Pulse Rate [Bilateral Pedal (Dorsalis Pedis) Palpation] Respiratory Rate 20 18 Blood Pressure Pulse Oximetry Oxygen Delivery Oxygen Flow Rate Fraction of Inspired Oxygen 08/31/24 03:23 08/31/24 04:00 08/31/24 04:00 Temperature 98.5 F Pulse Rate 85 Pulse Rate [Bilateral Pedal (Dorsalis Pedis) Palpation] 84 Respiratory Rate 20 Blood Pressure 124/76 Pulse Oximetry 93 93 Oxygen Delivery BiPAP Oxygen Flow Rate Fraction of Inspired Oxygen 80 08/31/24 04:00 08/31/24 06:00 08/31/24 07:39 Temperature Pulse Rate 101 H 72 64 Pulse Rate [Bilateral Pedal (Dorsalis Pedis) Palpation] Respiratory Rate 23 H Blood Pressure Pulse Oximetry 95 Oxygen Delivery BiPAP Oxygen Flow Rate Fraction of Inspired Oxygen 08/31/24 07:40 08/31/24 07:40 08/31/24 07:42 Temperature 97.6 F Pulse Rate 64 68 Pulse Rate [Bilateral Pedal (Dorsalis Pedis) Palpation] Respiratory Rate 23 H 18 Blood Pressure 126/70 Pulse Oximetry 96 95 Oxygen Delivery BiPAP Oxygen Flow Rate Fraction of Inspired Oxygen 100 08/31/24 08:59 08/31/24 09:12 08/31/24 11:00 Temperature Pulse Rate Pulse Rate [Bilateral Pedal (Dorsalis Pedis) Palpation] Respiratory Rate Blood Pressure Pulse Oximetry 86 L 95 98 Oxygen Delivery Nasal Cannula High Flow Therapy with Na High Flow Therapy with Na Oxygen Flow Rate 15 40 40 Fraction of Inspired Oxygen 100 100 08/31/24 11:15 08/31/24 11:28 Temperature 97 F L Pulse Rate 103 H Pulse Rate [Bilateral Pedal (Dorsalis Pedis) Palpation] Respiratory Rate 20 Blood Pressure 135/80 Pulse Oximetry 94 95 Oxygen Delivery High Flow Therapy with Na Oxygen Flow Rate 40 Fraction of Inspired Oxygen 70 Intake/Output Intake/Output: Intake & Output 08/28/24 08/29/24 08/30/24 08/31/24 23:59 23:59 23:59 23:59 Intake Total 470 1110 650 560 Output Total 858 465 3094 1900 Balance -130 884 -5742 -9331 Meds/Results Medications: Active Medications Generic Name Dose Route Start Last Admin Trade Name Carlos PRN Reason Stop Dose Admin Acetaminophen 650 mg 08/26/24 06:26 08/31/24 12:30 Acetaminophen 325 Mg Tablet PO 650 mg Q4H PRN Administration Mild Pain (1-3) or Fever Acetylcysteine 200 mg 08/30/24 14:00 08/31/24 07:37 Acetylcysteine 20% Inhal Soln 800 Mg/4 Ml Vial INHALATION 200 mg Q6HRT PA Administration Al Hydrox/Mg Hydrox/Simethicone 30 ml 08/26/24 06:26 Mag Hydrox/Al Hydrox/Simeth 30 Ml Udc PO QID PRN Dyspepsia Amlodipine Besylate 10 mg 08/26/24 09:00 08/28/24 08:48 Amlodipine Besylate 10 Mg Tablet PO Not Given DAILY PA Bisacodyl 5 mg 08/26/24 06:26 08/30/24 17:22 Bisacodyl 5 Mg Tablet Ec PO 5 mg DAILY PRN Administration Constipation Diltiazem HCl 30 mg/ Diltiazem 90 mg 08/27/24 10:15 08/31/24 04:46 HCl 60 mg PO 90 mg Q8HR PA Administration Fish Oil 2 gm 08/26/24 09:00 08/31/24 08:30 [place] 3 Polyunsat Fatty Acids 1 Gm Cap PO 2 gm BID PA Administration Folic Acid 1 mg 08/29/24 12:55 08/31/24 08:31 Folic Acid 1 Mg Tablet PO 1 mg DAILY PA Administration Furosemide 20 mg 08/26/24 09:00 08/27/24 08:48 Furosemide 20 Mg Tablet PO 20 mg DAILY PA Administration Furosemide 40 mg 08/30/24 10:25 08/31/24 08:31 Furosemide Inj 40 Mg/4 Ml Vial IV PUSH 40 mg BID PA Administration Guaifenesin 1,200 mg 08/30/24 21:00 08/31/24 08:31 Guaifenesin 12 Hr 600 Mg Tabcr PO 1,200 mg Q12HR PA Administration Hydrochlorothiazide 25 mg 08/26/24 09:00 08/27/24 08:48 Hydrochlorothiazide 25 Mg Tablet PO 25 mg DAILY PA Administration Piperacillin Sod/Tazobactam 50 mls @ 100 mls/hr 08/30/24 21:00 08/31/24 08:31 Sod 3.375 gm/ Sodium Chloride IVPB 100 mls/hr Q6H PA Administration Doxycycline Hyclate 100 mg/ 100 mls @ 100 mls/hr 08/30/24 04:00 08/31/24 04:46 Sodium Chloride IVPB 100 mls/hr Q12H PA Administration Ipratropium [place] 0.5 mg 08/30/24 14:00 08/31/24 07:37 Ipratropium Br 0.02% Inh Soln 0.5 Mg/2.5 Ml Vial INHALATION 0.5 mg Q6HRT PA Administration Irbesartan 150 mg 08/26/24 09:00 08/28/24 08:48 Irbesartan 150 Mg Tablet PO Not Given DAILY PA Levalbuterol HCl 0.63 mg 08/30/24 14:00 08/31/24 07:37 Levalbuterol Neb 1.25 Mg/3 Ml INHALATION 0.63 mg Q6HRT PA Administration Lorazepam 2 mg 08/26/24 21:53 Lorazepam Inj (*Crx) 2 Mg/Ml Vial IV PUSH Q2H PRN CIWA > 15 Lorazepam 2 mg 08/26/24 21:53 08/31/24 12:35 Lorazepam Inj (*Crx) 2 Mg/Ml Vial IV PUSH 2 mg Q4H PRN Administration CIWA 8-15 Lovastatin 40 mg 08/26/24 21:00 08/30/24 21:14 Lovastatin 20 Mg Tablet PO 40 mg HS PA Administration Magnesium Oxide 400 mg 08/26/24 09:00 08/31/24 08:32 Magnesium Oxide 400 Mg Tablet PO 400 mg DAILY PA Administration Methylprednisolone Sodium Succinate 40 mg 08/30/24 14:00 08/31/24 04:47 Methylprednisolone Sod Succ 40 Mg Vial IV PUSH 40 mg Q8HR PA Administration Multivitamins Therapeutic 1 tablet 08/26/24 09:00 08/31/24 08:30 Multivitamins Therapeutic Tab (*Bkc) PO 1 tablet DAILY PA Administration Pantoprazole Sodium 40 mg 08/30/24 21:00 08/31/24 08:31 Pantoprazole Sodium Iv 40 Mg Vial IV PUSH 40 mg Q12HR PA Administration Propranolol HCl 120 mg 08/26/24 21:00 08/30/24 21:14 Propranolol Hcl 60 Mg Capsule Cr PO 120 mg HS PA Administration Sodium Bicarbonate 650 mg 08/27/24 22:10 08/31/24 08:31 Sodium Bicarbonate Tab 650 Mg Tablet PO 650 mg BID PA Administration Sucralfate 1 gm 08/26/24 11:30 08/31/24 12:31 Sucralfate 1 Gm Tablet PO 1 gm ACHS PA Administration Thiamine HCl 100 mg 08/29/24 12:55 08/31/24 08:30 Thiamine Hcl 100 Mg Tablet PO 100 mg QAM PA Administration Radiology Results: ITS Impressions Renal Ultrasound 08/28/24 09:25 IMPRESSION: No hydronephrosis or renal calculi. Findings suggesting medical renal disease. Abdomen Ultrasound 08/28/24 11:48 IMPRESSION: Limited evaluation of the pancreas secondary to overlying bowel gas. Trace perihepatic free fluid. Phasic flow within the portal vein. Hepatomegaly. Single static measurement of the common bile duct is 4 mm, a significant difference from recent CT examination for which MRCP (may be performed without intravenous contrast) is recommended for confirmation. Chest CT 08/29/24 18:13 IMPRESSION: 1. Pneumonia involving the right upper and lower lobe. 2. Bilateral pleural effusion more on the right side with adjacent atelectasis versus pneumonia. 3. Tracheobronchomalacia. 4. Cardiomegaly with congestive haley. Venous Doppler Study 08/30/24 13:26 IMPRESSION: 1. No deep venous thrombosis. Modified Barium Swallow 08/30/24 16:58 IMPRESSION: Pharyngeal dysphagia with laryngeal penetration without aspiration. Please correlate with speech pathologist findings and specific feeding r ecommendations. Chest X-Ray 08/31/24 06:53 IMPRESSION: 1. Unchanged opacities in the left lower lung zone and improvement in opacities in the right upper and lower lung zones most likely related to combination of atelectasis and pneumonia. 2. Cardiomegaly. Labs Labs: Laboratory Results - last 24 hr 08/30/24 08/30/24 08/30/24 11:06 13:54 16:49 WBC RBC Hgb Hct MCV MCH MCHC RDW Plt Count MPV Immature Gran % (Auto) Neut % (Auto) Lymph % (Auto) [place] % (Auto) Eos % (Auto) Baso % (Auto) Lymph # (Auto) [place] # (Auto) Eos # (Auto) Baso # (Auto) Abs Immat Gran (auto) Absolute Neuts (auto) Absolute Nucleated RBC Band Neutrophils % Nucleated RBC % Platelet Estimate Hypochromasia Anisocytosis Ovalocytes Schistocytes Sodium Potassium Chloride Carbon Dioxide Anion Gap BUN Creatinine Estim Creat Clear Calc Estimated GFR Glucose POC Capillary Glucose 168 H Calcium Phosphorus Magnesium Total Bilirubin AST ALT Alkaline Phosphatase Total Protein Albumin Lipase 2247 H Nasal MRSA (PCR) Not detected Chlamy pneumoniae PCR Cancelled Adenovirus (PCR) Cancelled B. pertussis DNA (PCR) Cancelled B.parapertussis DNA PCR Cancelled Coronavirus OC43 (PCR) Cancelled Coronavirus HKU1 (PCR) Cancelled Coronavirus 229E (PCR) Cancelled Coronavirus NL63 (PCR) Cancelled Human Metapneumovir PCR Cancelled Influenza A (RT-PCR) Negative Influenza A (H1) PCR Cancelled Influ A (H1/09) PCR Cancelled Influenza A (H3) PCR Cancelled Influenza Type A (PCR) Cancelled Influenza B (RT-PCR) Negative Influenza Type B (PCR) Cancelled M. pneumoniae (PCR) Cancelled Parainfluenza 1 (PCR) Cancelled Parainfluenza 2 (PCR) Cancelled Parainfluenza 3 (PCR) Cancelled Parainfluenza 4 (PCR) Cancelled RSV (RT-PCR) Negative RSV (PCR) Cancelled Entero/Rhino (PCR) Cancelled SARS-CoV-2 (PCR) Cancelled SARS-CoV-2 RNA (RT-PCR) Negative 08/31/24 08/31/24 08/31/24 00:06 04:00 11:35 WBC 4.9 RBC 2.85 L Hgb 9.6 L Hct 30.1 L MCV 105.6 H MCH 33.7 MCHC 31.9 L RDW 13.5 Plt Count 104 L MPV 9.7 Immature Gran % (Auto) 0.4 Neut % (Auto) 88.5 H Lymph % (Auto) 6.2 L [place] % (Auto) 4.9 Eos % (Auto) 0.0 Baso % (Auto) 0.0 L Lymph # (Auto) 0.30 L [place] # (Auto) 0.2 Eos # (Auto) 0.0 Baso # (Auto) 0.0 Abs Immat Gran (auto) 0.02 Absolute Neuts (auto) 4.3 Absolute Nucleated RBC 0.000 Band Neutrophils % 0 Nucleated RBC % 0.0 Platelet Estimate Decreased Hypochromasia 1+ Anisocytosis 1+ Ovalocytes 1+ Schistocytes None seen Sodium 136 L Potassium 3.6 Chloride 92 L Carbon Dioxide 34 H Anion Gap 10 BUN 41 H Creatinine 2.64 H Estim Creat Clear Calc 33 Estimated GFR 25 L Glucose 138 H POC Capillary Glucose 154 H 213 H Calcium 8.9 Phosphorus 4.7 H Magnesium 2.0 Total Bilirubin 1.0 AST 87 H ALT 91 H Alkaline Phosphatase 82 Total Protein 7.9 Albumin 3.7 Lipase Nasal MRSA (PCR) Chlamy pneumoniae PCR Adenovirus (PCR) B. pertussis DNA (PCR) B.parapertussis DNA PCR Coronavirus OC43 (PCR) Coronavirus HKU1 (PCR) Coronavirus 229E (PCR) Coronavirus NL63 (PCR) Human Metapneumovir PCR Influenza A (RT-PCR) Influenza A (H1) PCR Influ A (H1/09) PCR Influenza A (H3) PCR Influenza Type A (PCR) Influenza B (RT-PCR) Influenza Type B (PCR) M. pneumoniae (PCR) Parainfluenza 1 (PCR) Parainfluenza 2 (PCR) Parainfluenza 3 (PCR) Parainfluenza 4 (PCR) RSV (RT-PCR) RSV (PCR) Entero/Rhino (PCR) SARS-CoV-2 (PCR) SARS-CoV-2 RNA (RT-PCR) Quality VTE Prophylaxis VTE prophylaxis: mechanical ordered
--- NOTE | 2024-08-31 15:23 | PCPTNOTE ---
Attempted to see at 1316, but nursing had just given patient Ativan and he is asleep. Physical therapy will attempt to see the patient again later as time allows.
--- NOTE | 2024-08-31 17:50 | P.PNUR_ITS ---
Progress Note: A&P Assessment and Plan (1) Gross hematuria: Code(s): R31.0 - Gross hematuria Status: Acute Plan cont with jackson, voiding trial when ambulating Subjective Subjective Date/Time Seen: 08/31/24 17:50 Interval history: Pt comfortable, jackson in place, urine clear Exam Urinary Catheter: Urinary Catheter: patent and draining and urine clear Objective Data Vital Signs Vital Signs: Vital Signs - 24 hr 08/30/24 18:00 08/30/24 19:22 08/30/24 19:22 Temperature Pulse Rate 119 H 103 H Pulse Rate [Bilateral Pedal (Dorsalis Pedis) Palpation] Respiratory Rate 20 Blood Pressure Pulse Oximetry 92 Oxygen Delivery High Flow Nasal Cannula Oxygen Flow Rate 10 Fraction of Inspired Oxygen 08/30/24 19:35 08/30/24 20:00 08/30/24 20:00 Temperature 36.6 C Pulse Rate 118 H 123 H Pulse Rate [Bilateral Pedal (Dorsalis Pedis) Palpation] Respiratory Rate 20 22 H Blood Pressure 147/95 H Pulse Oximetry 93 94 Oxygen Delivery BiPAP Oxygen Flow Rate Fraction of Inspired Oxygen 80 08/30/24 20:00 08/30/24 20:00 08/30/24 21:14 Temperature Pulse Rate 131 H 88 Pulse Rate [Bilateral Pedal (Dorsalis Pedis) Palpation] 131 H Respiratory Rate Blood Pressure Pulse Oximetry Oxygen Delivery Oxygen Flow Rate Fraction of Inspired Oxygen 08/30/24 22:00 08/30/24 22:11 08/30/24 23:43 Temperature 37.0 C Pulse Rate 111 H 113 H 94 Pulse Rate [Bilateral Pedal (Dorsalis Pedis) Palpation] Respiratory Rate 19 20 Blood Pressure 144/69 H Pulse Oximetry 94 93 Oxygen Delivery BiPAP Oxygen Flow Rate Fraction of Inspired Oxygen 08/30/24 23:46 08/31/24 00:00 08/31/24 01:50 Temperature Pulse Rate 76 78 Pulse Rate [Bilateral Pedal (Dorsalis Pedis) Palpation] Respiratory Rate 20 Blood Pressure Pulse Oximetry 93 93 Oxygen Delivery BiPAP BiPAP Oxygen Flow Rate Fraction of Inspired Oxygen 80 08/31/24 01:50 08/31/24 02:00 08/31/24 02:03 Temperature Pulse Rate 78 74 83 Pulse Rate [Bilateral Pedal (Dorsalis Pedis) Palpation] Respiratory Rate 20 18 Blood Pressure Pulse Oximetry Oxygen Delivery Oxygen Flow Rate Fraction of Inspired Oxygen 08/31/24 03:23 08/31/24 04:00 08/31/24 04:00 Temperature 36.9 C Pulse Rate 85 Pulse Rate [Bilateral Pedal (Dorsalis Pedis) Palpation] 84 Respiratory Rate 20 Blood Pressure 124/76 Pulse Oximetry 93 93 Oxygen Delivery BiPAP Oxygen Flow Rate Fraction of Inspired Oxygen 80 08/31/24 04:00 08/31/24 06:00 08/31/24 07:39 Temperature Pulse Rate 101 H 72 64 Pulse Rate [Bilateral Pedal (Dorsalis Pedis) Palpation] Respiratory Rate 23 H Blood Pressure Pulse Oximetry 95 Oxygen Delivery BiPAP Oxygen Flow Rate Fraction of Inspired Oxygen 08/31/24 07:40 08/31/24 07:40 08/31/24 07:42 Temperature 36.4 C Pulse Rate 64 68 Pulse Rate [Bilateral Pedal (Dorsalis Pedis) Palpation] Respiratory Rate 23 H 18 Blood Pressure 126/70 Pulse Oximetry 96 95 Oxygen Delivery BiPAP Oxygen Flow Rate Fraction of Inspired Oxygen 100 08/31/24 07:50 08/31/24 08:59 08/31/24 09:12 Temperature Pulse Rate 65 Pulse Rate [Bilateral Pedal (Dorsalis Pedis) Palpation] Respiratory Rate 20 Blood Pressure Pulse Oximetry 86 L 95 Oxygen Delivery Nasal Cannula High Flow Therapy with Na Oxygen Flow Rate 15 40 Fraction of Inspired Oxygen 100 08/31/24 11:00 08/31/24 11:15 08/31/24 11:28 Temperature 36.1 C L Pulse Rate 103 H Pulse Rate [Bilateral Pedal (Dorsalis Pedis) Palpation] Respiratory Rate 20 Blood Pressure 135/80 Pulse Oximetry 98 94 95 Oxygen Delivery High Flow Therapy with Na High Flow Therapy with Na Oxygen Flow Rate 40 40 Fraction of Inspired Oxygen 100 70 08/31/24 13:31 08/31/24 13:35 08/31/24 13:42 Temperature Pulse Rate 114 H 110 H Pulse Rate [Bilateral Pedal (Dorsalis Pedis) Palpation] Respiratory Rate 20 20 Blood Pressure Pulse Oximetry 94 Oxygen Delivery High Flow Therapy with Na Oxygen Flow Rate 40 Fraction of Inspired Oxygen 65 08/31/24 16:00 Temperature 36.4 C L Pulse Rate 82 Pulse Rate [Bilateral Pedal (Dorsalis Pedis) Palpation] Respiratory Rate 20 Blood Pressure 127/76 Pulse Oximetry 92 Oxygen Delivery Oxygen Flow Rate Fraction of Inspired Oxygen Intake/Output Intake/Output: Intake & Output 07/09/25 07/10/25 07/11/25 07/12/25 23:59 23:59 23:59 23:59 Intake Total 470 9548 708 6671 Output Total 156 944 0166 2775 Balance -130 914 -3689 -5117 Meds/Results Medications: Active Medications Generic Name Dose Route Start Last Admin Trade Name Frefab PRN Reason Stop Dose Admin Acetaminophen 650 mg 08/26/24 06:26 08/31/24 17:40 Acetaminophen 325 Mg Tablet PO 650 mg Q4H PRN Administration Mild Pain (1-3) or Fever Acetylcysteine 200 mg 08/30/24 14:00 08/31/24 13:28 Acetylcysteine 20% Inhal Soln 800 Mg/4 Ml Vial INHALATION 200 mg Q6HRT PA Administration Al Hydrox/Mg Hydrox/Simethicone 30 ml 08/26/24 06:26 Mag Hydrox/Al Hydrox/Simeth 30 Ml Udc PO QID PRN Dyspepsia Amlodipine Besylate 10 mg 08/26/24 09:00 08/28/24 08:48 Amlodipine Besylate 10 Mg Tablet PO Not Given DAILY PA Bisacodyl 5 mg 08/26/24 06:26 08/30/24 17:22 Bisacodyl 5 Mg Tablet Ec PO 5 mg DAILY PRN Administration Constipation Diltiazem HCl 30 mg/ Diltiazem 90 mg 08/27/24 10:15 08/31/24 14:26 HCl 60 mg PO 90 mg Q8HR PA Administration Fish Oil 2 gm 08/26/24 09:00 08/31/24 17:40 [place] 3 Polyunsat Fatty Acids 1 Gm Cap PO 2 gm BID PA Administration Folic Acid 1 mg 08/29/24 12:55 08/31/24 08:31 Folic Acid 1 Mg Tablet PO 1 mg DAILY PA Administration Furosemide 20 mg 08/26/24 09:00 08/27/24 08:48 Furosemide 20 Mg Tablet PO 20 mg DAILY PA Administration Furosemide 40 mg 08/30/24 10:25 08/31/24 17:40 Furosemide Inj 40 Mg/4 Ml Vial IV PUSH 40 mg BID PA Administration Guaifenesin 1,200 mg 08/30/24 21:00 08/31/24 08:31 Guaifenesin 12 Hr 600 Mg Tabcr PO 1,200 mg Q12HR PA Administration Hydrochlorothiazide 25 mg 08/26/24 09:00 08/27/24 08:48 Hydrochlorothiazide 25 Mg Tablet PO 25 mg DAILY PA Administration Piperacillin Sod/Tazobactam 50 mls @ 100 mls/hr 08/30/24 21:00 08/31/24 14:28 Sod 3.375 gm/ Sodium Chloride IVPB 100 mls/hr Q6H PA Administration Doxycycline Hyclate 100 mg/ 100 mls @ 100 mls/hr 08/30/24 04:00 08/31/24 16:00 Sodium Chloride IVPB 100 mls/hr Q12H PA Administration Ipratropium [place] 0.5 mg 08/30/24 14:00 08/31/24 13:28 Ipratropium Br 0.02% Inh Soln 0.5 Mg/2.5 Ml Vial INHALATION 0.5 mg Q6HRT PA Administration Irbesartan 150 mg 08/26/24 09:00 08/28/24 08:48 Irbesartan 150 Mg Tablet PO Not Given DAILY PA Levalbuterol HCl 0.63 mg 08/30/24 14:00 08/31/24 13:28 Levalbuterol Neb 1.25 Mg/3 Ml INHALATION 0.63 mg Q6HRT PA Administration Lorazepam 2 mg 08/26/24 21:53 Lorazepam Inj (*Crx) 2 Mg/Ml Vial IV PUSH Q2H PRN CIWA > 15 Lorazepam 2 mg 08/26/24 21:53 08/31/24 12:35 Lorazepam Inj (*Crx) 2 Mg/Ml Vial IV PUSH 2 mg Q4H PRN Administration CIWA 8-15 Lovastatin 40 mg 08/26/24 21:00 08/30/24 21:14 Lovastatin 20 Mg Tablet PO 40 mg HS PA Administration Magnesium Oxide 400 mg 08/26/24 09:00 08/31/24 08:32 Magnesium Oxide 400 Mg Tablet PO 400 mg DAILY PA Administration Methylprednisolone Sodium Succinate 40 mg 08/30/24 14:00 08/31/24 14:28 Methylprednisolone Sod Succ 40 Mg Vial IV PUSH 40 mg Q8HR PA Administration Multivitamins Therapeutic 1 tablet 08/26/24 09:00 08/31/24 08:30 Multivitamins Therapeutic Tab (*Bkc) PO 1 tablet DAILY PA Administration Pantoprazole Sodium 40 mg 08/30/24 21:00 08/31/24 08:31 Pantoprazole Sodium Iv 40 Mg Vial IV PUSH 40 mg Q12HR PA Administration Propranolol HCl 120 mg 08/26/24 21:00 08/30/24 21:14 Propranolol Hcl 60 Mg Capsule Cr PO 120 mg HS PA Administration Sodium Bicarbonate 650 mg 08/27/24 22:10 08/31/24 17:40 Sodium Bicarbonate Tab 650 Mg Tablet PO 650 mg BID PA Administration Sucralfate 1 gm 08/26/24 11:30 08/31/24 17:40 Sucralfate 1 Gm Tablet PO 1 gm ACHS PA Administration Thiamine HCl 100 mg 08/29/24 12:55 08/31/24 08:30 Thiamine Hcl 100 Mg Tablet PO 100 mg QAM PA Administration Radiology Results: ITS Impressions Renal Ultrasound 08/28/24 09:25 IMPRESSION: No hydronephrosis or renal calculi. Findings suggesting medical renal disease. Abdomen Ultrasound 08/28/24 11:48 IMPRESSION: Limited evaluation of the pancreas secondary to overlying bowel gas. Trace perihepatic free fluid. Phasic flow within the portal vein. Hepatomegaly. Single static measurement of the common bile duct is 4 mm, a significant difference from recent CT examination for which MRCP (may be performed without intravenous contrast) is recommended for confirmation. Chest CT 08/29/24 18:13 IMPRESSION: 1. Pneumonia involving the right upper and lower lobe. 2. Bilateral pleural effusion more on the right side with adjacent atelectasis versus pneumonia. 3. Tracheobronchomalacia. 4. Cardiomegaly with congestive haley. Venous Doppler Study 08/30/24 13:26 IMPRESSION: 1. No deep venous thrombosis. Modified Barium Swallow 08/30/24 16:58 IMPRESSION: Pharyngeal dysphagia with laryngeal penetration without aspiration. Please correlate with speech pathologist findings and specific feeding recommendations. Chest X-Ray 08/31/24 06:53 IMPRESSION: 1. Unchanged opacities in the left lower lung zone and improvement in opacities in the right upper and lower lung zones most likely related to combination of atelectasis and pneumonia. 2. Cardiomegaly. Labs Labs: Laboratory Results - last 24 hr 08/31/24 08/31/24 08/31/24 00:06 04:00 11:35 WBC 4.9 RBC 2.85 L Hgb 9.6 L Hct 30.1 L MCV 105.6 H MCH 33.7 MCHC 31.9 L RDW 13.5 Plt Count 104 L MPV 9.7 Immature Gran % (Auto) 0.4 Neut % (Auto) 88.5 H Lymph % (Auto) 6.2 L [place] % (Auto) 4.9 Eos % (Auto) 0.0 Baso % (Auto) 0.0 L Lymph # (Auto) 0.30 L [place] # (Auto) 0.2 Eos # (Auto) 0.0 Baso # (Auto) 0.0 Abs Immat Gran (auto) 0.02 Absolute Neuts (auto) 4.3 Absolute Nucleated RBC 0.000 Band Neutrophils % 0 Nucleated RBC % 0.0 Platelet Estimate Decreased Hypochromasia 1+ Anisocytosis 1+ Ovalocytes 1+ Schistocytes None seen Sodium 136 L Potassium 3.6 Chloride 92 L Carbon Dioxide 34 H Anion Gap 10 BUN 41 H Creatinine 2.64 H Estim Creat Clear Calc 33 Estimated GFR 25 L Glucose 138 H POC Capillary Glucose 154 H 213 H Calcium 8.9 Phosphorus 4.7 H Magnesium 2.0 Total Bilirubin 1.0 AST 87 H ALT 91 H Alkaline Phosphatase 82 Total Protein 7.9 Albumin 3.7
[2024-08-31] MEDS: PROPRANOLOL HCL 60 MG CAPSULE CR 120 MG PO (21:49)
[2024-08-31] MEDS: LOVASTATIN 20 MG TABLET 40 MG PO (21:49)
[2024-09-01] VITALS (30 sets, daily range): BP systolic 118–129; BP diastolic 58–93; PULSE 61–104; RESP 14–22; TEMP 36.6–36.8; O2SAT 88–99
[2024-09-01] MEDS: ACETYLCYSTEINE 20% INHAL SOLN 800 MG/4 ML VIAL 200 MG INHALATION ×4 (02:15→20:13)
[2024-09-01] MEDS: IPRATROPIUM BR 0.02% INH SOLN 0.5 MG/2.5 ML VIAL INHALATION ×4 (02:15→20:13)
[2024-09-01] MEDS: PIPERACILLIN/TAZOBACTAM SOD 3.375 GM in SODIUM CHLORIDE 0.9% IV 50 ML 100 ML IVPB ×4 (04:05→21:08)
[2024-09-01] MEDS: DOXYCYCLINE IV 100 MG in SODIUM CHLORIDE 0.9% IV 100 ML IVPB ×2 (04:46→15:49)
[2024-09-01] MEDS: SUCRALFATE 1 GM TABLET PO ×4 (04:53→21:13)
[2024-09-01] MEDS: ACETAMINOPHEN 325 MG TABLET 650 MG PO ×2 (04:53→21:11)
[2024-09-01] MEDS: dilTIAZem HCL TAB 30 MG, dilTIAZem HCL TAB 60 MG 90 MG PO ×3 (04:53→21:12)
[2024-09-01] MEDS: LORazepam INJ (*CRX) 2 MG/ML VIAL IV PUSH ×3 (04:54→21:06)
[2024-09-01 05:00] LABS: Hematocrit 31.9 % (42.0-52.0); Hemoglobin 10.1 g/dL (14.0-18.0); Immature Granulocyte Percent A 0.6 % (0-0.5); Lymphocytes Absolute Auto 0.36 K/mm3 (0.9-3.2); Mean Corpuscular HGB Conc 31.7 g/dl (32-36); Mean Corpuscular Hemoglobin 33.1 pg (26-34); Mean Corpuscular Volume 104.6 fl (80-100); Nucleated Red Blood Cells Absolute Auto 0.000 K/mm3 (0.0-0.012); Nucleated Red Blood Cells Perc 0.0 % (0.0-0.2); Platelet Count Result 124 k/mm3 (150-375); Red Blood Count 3.05 M/mm3 (4.6-6.20); White Blood Count 7.9 K/mm3 (4.5-10.0)
[2024-09-01 05:24] LABS: Alanine Aminotransferase 77 U/L (6-50); Albumin Level 3.8 g/dL (3.5-5.1); Alkaline Phosphatase 91 U/L (38-126); Anion Gap 11 mmol/L (4-12); Aspartate Amino Transferase 65 U/L (17-59); Bilirubin,Total 1.0 mg/dL (0.2-1.3); Blood Urea Nitrogen 40 mg/dL (9-20); Calcium 9.2 mg/dL (8.4-10.2); Carbon Dioxide 34 mmol/L (22-30); Chloride 91 mmol/L (98-107); Estimated CRCL calculation 41 ml/min; Estimated Glomerular Filt Rate 33; Glucose 151 mg/dL (65-110); Magnesium 1.7 mg/dL (1.6-2.3); Potassium 3.3 mmol/L (3.4-5.0); Sodium 136 mmol/L (137-145); Total Protein 8.1 g/dL (6.3-8.2)
[2024-09-01] MEDS: POTASSIUM CHLORIDE 20 MEQ ER TABLET 40 MEQ PO (09:04)
[2024-09-01] MEDS: OMEGA 3 POLYUNSAT FATTY ACIDS 1 GM CAP 2 GM PO ×2 (09:28→16:32)
[2024-09-01] MEDS: PANTOPRAZOLE SODIUM IV 40 MG VIAL IV PUSH ×2 (09:28→21:08)
[2024-09-01] MEDS: FUROSEMIDE INJ 40 MG/4 ML VIAL 20 MG IV PUSH ×2 (09:28→16:32)
[2024-09-01] MEDS: FOLIC ACID 1 MG TABLET PO (09:31)
[2024-09-01] MEDS: THIAMINE HCL 100 MG TABLET PO (09:31)
[2024-09-01] MEDS: guaiFENesin 12 HR 600 MG TABCR 1200 MG PO ×2 (09:31→21:11)
[2024-09-01] MEDS: MULTIVITAMINS THERAPEUTIC TAB (*BKC) 1 TABLET PO (09:31)
[2024-09-01] MEDS: MAGNESIUM OXIDE 400 MG TABLET PO (09:31)
--- NOTE | 2024-09-01 11:01 | P.PNNP_ITS ---
Progress Note: A&P Assessment and Plan (1) Acute kidney injury: Code(s): N17.9 - Acute kidney failure, unspecified Status: Acute Assessment and Plan: * slow improvement noted * possible peak/plateau of creatinine at 4.6mg/dl * deterioration noted since 08/28/23 * renal function/creatinine at baseline on admission: * baseline creatinine seems to run ~ 1.1 - 1.4mg/dl in the last few years * creatinine 1.28mg/dl on admission * suspect multifactorial: * afib with RVR * relative hypotension * medications prior to admission (ARB + diuretics) * contrast exposure (CTA chest on 08/26) * CHF exacerbation * other(?) * evaluation to date noted: * urine electrolytes prerenal * urine eosinophils negative * mild proteinuria * UA without evidence of infection * CPK elevated (but not enough to affect kidney function) * renal ultrasound okay * better urine output noted * optimize hemodynamics * follow trend of repeat labs and UOP (2) Atrial fibrillation with rapid ventricular response: Code(s): I48.91 - Unspecified atrial fibrillation Status: Acute Assessment and Plan: * as noted on presentation * rate control strategy - on oral cardizem * not on anticoagulation due to peptic ulcer disease * Echo (08/26) noted: * left ventricular systolic function is normal, estimated at 60-65% * left ventricular diastolic function is abnormal * mild mitral valve regurgitation * mild tricuspid valve regurgitation * mild pulmonary hypertension, estimated pulmonary arterial systolic pressure is 37 mmHg. * diuresis as needed for diastolic CHF * Cardiology following (3) Pneumonia: Code(s): J18.9 - Pneumonia, unspecified organism Status: Acute Assessment and Plan: * admission CXR noted * follow culture data * on antibiotics (4) Alcoholic hepatitis: Code(s): K70.10 - Alcoholic hepatitis without ascites Status: Acute Assessment and Plan: * GI following * complicated by liver cirrhosis * started on prednisone * continue supportive therapy (5) Anemia: Code(s): D64.9 - Anemia, unspecified Status: Acute Assessment and Plan: * due to PATRICA and acute illness * hematuria maybe playing a role as well... * follow trend of H/H (6) Gross hematuria: Code(s): R31.0 - Gross hematuria Status: Acute Assessment and Plan: * Urology following * suspect secondary to jackson trauma * continue jackson catheter Will continue to follow. L Subjective Date/time seen: 09/01/24 11:01 Interval history: Follow-up for acute kidney injury/acute renal failure. Renal function/creatinine continues to improve despite IV diuresis with good urine output noted; breathing/respiratory status continues to improve as well; no apparent distress noted at the time of my visit. Exam 2 Narrative: General: WD/WN male in NAD Heart: IRRR, normal S1 and S2; no rub Lungs: coarse breath sounds Abdomen: soft, nontender, nondistended, positive bowel sounds Extremities: no cyanosis or clubbing; no edema Skin: no rash Objective Data Vital Signs Vital Signs: Vital Signs Temp Pulse Pulse Resp BP Pulse Ox O2 Del Method 09/01/24 11:00 High Flow Therapy with Na 09/01/24 08:51 87 16 09/01/24 08:42 87 16 99 High Flow Nasal Cannula 09/01/24 07:36 97.8 F 91 18 126/70 96 09/01/24 06:00 78 09/01/24 04:00 90 09/01/24 04:00 97.9 F 90 14 127/75 91 09/01/24 03:53 97 20 88 L High Flow Therapy with Na 09/01/24 03:52 92 09/01/24 02:40 97 20 09/01/24 02:15 88 95 High Flow Therapy with Na 09/01/24 02:15 88 20 09/01/24 02:00 86 09/01/24 00:00 95 08/31/24 23:53 96 High Flow Therapy with Na 08/31/24 23:51 92 08/31/24 23:50 97.4 F L 103 H 14 139/73 95 08/31/24 22:00 101 H 08/31/24 21:49 114 H 08/31/24 21:30 96 High Flow Therapy with Na 08/31/24 20:40 101 H 20 08/31/24 20:27 97 20 08/31/24 20:25 97 95 High Flow Therapy with Na 08/31/24 20:00 101 H 08/31/24 20:00 97 High Flow Therapy with Na 08/31/24 20:00 114 H 08/31/24 20:00 97.3 F L 102 H 18 120/68 96 08/31/24 18:00 98 08/31/24 16:00 92 08/31/24 16:00 92 High Flow Therapy with Na 08/31/24 16:00 97.5 F L 82 20 127/76 92 08/31/24 14:00 88 08/31/24 13:42 110 H 20 08/31/24 13:35 94 High Flow Therapy with Na 08/31/24 13:31 114 H 20 Intake/Output Intake/Output: Intake & Output 08/29/24 08/30/24 08/31/24 09/01/24 23:59 23:59 23:59 23:59 Intake Total 1264 344 8519 475 Output Total 697 4476 7886 2100 Balance 815 -0000 -6739 -4485 Meds/Results Medications: Active Medications Generic Name Dose Route Start Last Admin Trade Name Freq PRN Reason Stop Dose Admin Acetaminophen 650 mg 08/26/24 06:26 09/01/24 04:53 Acetaminophen 325 Mg Tablet PO 650 mg Q4H PRN Administration Mild Pain (1-3) or Fever Acetylcysteine 200 mg 08/30/24 14:00 09/01/24 08:51 Acetylcysteine 20% Inhal Soln 800 Mg/4 Ml Vial INHALATION 200 mg Q6HRT PA Administration Al Hydrox/Mg Hydrox/Simethicone 30 ml 08/26/24 06:26 Mag Hydrox/Al Hydrox/Simeth 30 Ml Udc PO QID PRN Dyspepsia Amlodipine Besylate 10 mg 08/26/24 09:00 08/28/24 08:48 Amlodipine Besylate 10 Mg Tablet PO Not Given DAILY PA Bisacodyl 5 mg 08/26/24 06:26 08/30/24 17:22 Bisacodyl 5 Mg Tablet Ec PO 5 mg DAILY PRN Administration Constipation Dextrose 12.5 gm 09/01/24 12:12 Dextrose 50% 25 Gm/50 Ml Syringe IV PUSH PRN PRN Hypoglycemia Protocol Diltiazem HCl 30 mg/ Diltiazem 90 mg 08/27/24 10:15 09/01/24 04:53 HCl 60 mg PO 90 mg Q8HR PA Administration Fish Oil 2 gm 08/26/24 09:00 09/01/24 09:28 [place] 3 Polyunsat Fatty Acids 1 Gm Cap PO 2 gm BID PA Administration Folic Acid 1 mg 08/29/24 12:55 09/01/24 09:31 Folic Acid 1 Mg Tablet PO 1 mg DAILY PA Administration Furosemide 20 mg 08/26/24 09:00 08/27/24 08:48 Furosemide 20 Mg Tablet PO 20 mg DAILY PA Administration Furosemide 20 mg 09/01/24 09:00 09/01/24 09:28 Furosemide Inj 40 Mg/4 Ml Vial IV PUSH 20 mg BID PA Administration Glucagon 1 mg 09/01/24 12:12 Glucagon For Inj 1 Mg Vial IM PRN PRN Hypoglycemia Protocol Glucose 15 gm 09/01/24 12:12 Glucose Oral Gel 15 Gm Of Glucse In 37.5 Gm Tube PO PRN PRN Hypoglycemia Protocol Guaifenesin 1,200 mg 08/30/24 21:00 09/01/24 09:31 Guaifenesin 12 Hr 600 Mg Tabcr PO 1,200 mg Q12HR PA Administration Hydrochlorothiazide 25 mg 08/26/24 09:00 08/27/24 08:48 Hydrochlorothiazide 25 Mg Tablet PO 25 mg DAILY PA Administration Piperacillin Sod/Tazobactam 50 mls @ 100 mls/hr 08/30/24 21:00 09/01/24 09:31 Sod 3.375 gm/ Sodium Chloride IVPB 100 mls/hr Q6H PA Administration Doxycycline Hyclate 100 mg/ 100 mls @ 100 mls/hr 08/30/24 04:00 09/01/24 04:46 Sodium Chloride IVPB 100 mls/hr Q12H PA Administration Dextrose 1,000 mls @ 100 mls/hr 09/01/24 12:12 Dextrose 5% 1,000 Ml IVPB PRN PRN Hypoglycemia Protocol Insulin Aspart 1 - 3 units 09/01/24 21:00 Insulin Aspart (*Bkc) 100 Units/Ml SUB-Q HS PA Protocol Insulin Aspart 3 - 6 units 09/01/24 12:19 Insulin Aspart (*Bkc) 100 Units/Ml SUB-Q TIDWM PA Protocol Ipratropium [place] 0.5 mg 08/30/24 14:00 09/01/24 08:50 Ipratropium Br 0.02% Inh Soln 0.5 Mg/2.5 Ml Vial INHALATION 0.5 mg Q6HRT PA Administration Irbesartan 150 mg 08/26/24 09:00 08/28/24 08:48 Irbesartan 150 Mg Tablet PO Not Given DAILY PA Levalbuterol HCl 0.63 mg 08/30/24 14:00 09/01/24 08:50 Levalbuterol Neb 1.25 Mg/3 Ml INHALATION 0.63 mg Q6HRT PA Administration Lorazepam 2 mg 08/26/24 21:53 09/01/24 04:54 Lorazepam Inj (*Crx) 2 Mg/Ml Vial IV PUSH 2 mg Q2H PRN Administration CIWA > 15 Lorazepam 2 mg 08/26/24 21:53 08/31/24 17:37 Lorazepam Inj (*Crx) 2 Mg/Ml Vial IV PUSH 2 mg Q4H PRN Administration CIWA 8-15 Lovastatin 40 mg 08/26/24 21:00 08/31/24 21:49 Lovastatin 20 Mg Tablet PO 40 mg HS AP Administration Magnesium Oxide 400 mg 08/26/24 09:00 09/01/24 09:31 Magnesium Oxide 400 Mg Tablet PO 400 mg DAILY PA Administration Methylprednisolone Sodium Succinate 40 mg 08/30/24 14:00 09/01/24 04:53 Methylprednisolone Sod Succ 40 Mg Vial IV PUSH 40 mg Q8HR PA Administration Multivitamins Therapeutic 1 tablet 08/26/24 09:00 09/01/24 09:31 Multivitamins Therapeutic Tab (*Bkc) PO 1 tablet DAILY PA Administration Pantoprazole Sodium 40 mg 08/30/24 21:00 09/01/24 09:28 Pantoprazole Sodium Iv 40 Mg Vial IV PUSH 40 mg Q12HR PA Administration Propranolol HCl 120 mg 08/26/24 21:00 08/31/24 21:49 Propranolol Hcl 60 Mg Capsule Cr PO 120 mg HS PA Administration Sucralfate 1 gm 08/26/24 11:30 09/01/24 11:51 Sucralfate 1 Gm Tablet PO 1 gm ACHS PA Administration Thiamine HCl 100 mg 08/29/24 12:55 09/01/24 09:31 Thiamine Hcl 100 Mg Tablet PO 100 mg QAM PA Administration Radiology Results: ITS Impressions Renal Ultrasound 08/28/24 09:25 IMPRESSION: No hydronephrosis or renal calculi. Findings suggesting medical renal disease. Abdomen Ultrasound 08/28/24 11:48 IMPRESSION: Limited evaluation of the pancreas secondary to overlying bowel gas. Trace perihepatic free fluid. Phasic flow within the portal vein. Hepatomegaly. Single static measurement of the common bile duct is 4 mm, a significant difference from recent CT examination for which MRCP (may be performed without intravenous contrast) is recommended for confirmation. Chest CT 08/29/24 18:13 IMPRESSION: 1. Pneumonia involving the right upper and lower lobe. 2. Bilateral pleural effusion more on the right side with adjacent atelectasis versus pneumonia. 3. Tracheobronchomalacia. 4. Cardiomegaly with congestive haley. Venous Doppler Study 08/30/24 13:26 IMPRESSION: 1. No deep venous thrombosis. Modified Barium Swallow 08/30/24 16:58 IMPRESSION: Pharyngeal dysphagia with laryngeal penetration without aspiration. Please correlate with speech pathologist findings and specific feeding recommendations. Chest X-Ray 09/01/24 06:34 Impression: Mild bibasilar pulmonary edema changes with minimal right pleural effusion. Labs Labs: Laboratory Tests 09/01/24 04:11 09/01/24 04:11 Calcium 9.2 Phosphorus 4.2 Magnesium 1.7 Total Bilirubin 1.0 AST 65 H ALT 77 H Alkaline Phosphatase 91 Total Protein 8.1 Albumin 3.8
--- NOTE | 2024-09-01 13:41 | PCPTNOTE ---
attempted PT eval ,pt on commode and asked PT to come back at a later time, will follow
--- NOTE | 2024-09-01 14:50 | PM.IMPN ---
Progress Note: A&P Assessment and Plan (1) Acute on chronic diastolic heart failure: Code(s): I50.33 - Acute on chronic diastolic (congestive) heart failure Status: Acute (2) Elevated troponin: Code(s): R79.89 - Other specified abnormal findings of blood chemistry Status: Inactive (3) Demand ischemia: Code(s): I24.89 - Other forms of acute ischemic heart disease Status: Inactive (4) Atrial fibrillation with rapid ventricular response: Code(s): I48.91 - Unspecified atrial fibrillation Status: Inactive (5) CHF (congestive heart failure): Qualifiers: Heart failure chronicity: acute Heart failure type: unspecified Qualified Code(s): I50.9 - Heart failure, unspecified Code(s): I50.9 - Heart failure, unspecified Status: Inactive (6) Alcohol abuse: Code(s): F10.10 - Alcohol abuse, uncomplicated Status: Acute Plan Afib with RVR ECHO showed normal EF 60-65% Continue cardizem 90mg Q8, discharge on 240mg daily Patient not on Anticoagulation due to PUD; LAAO outpatient cardiology following Acute hypoxemic respiratory failure likely from Pneumonia vs COPD Continue abx and bronchodilators Pulmonology consulted s/p BiPAP now on Vapotherm monitor Pulmonology following Pneumonia CXR reviewed continue Zosyn and Doxycycline MRSA negative Monitor cultures Elevated troponin Likely demand ischemia PATRICA Cr 4.2, baseline normal Cr 3.5 today US renal no obstruction Nephrology following Hematuria CT AP ordered and urology consulted Alcoholic hepatitis with possible Liver cirrhosis Per Gi eval patient qualifies steroid Started prednisone ALT 162/AST 343 down to 65/77 respectively GI following Alcohol withdrawal LAD 6/7 continue CIWA protocol monitor Hematuria urology evaluated and noted it was likely from trauma improving Urology following GI evaluated and noted no significant bile duct dilation, no MRCP recommended DVT prophylaxis on SCDs, no AC due to hematuria, restart once hematuria resolved Subjective Date/time seen: 09/01/24 14:50 Interval history: Comfortable at bedside Much improved from yesterday, sitting up and eatng his breakfast at the time of this encounter Review of Systems Review of Systems: As per HPI Exam Narrative: Morbidly obese Patient is comfortable, NAD HEENT: eyes are clear and none icteric LUNGS: Irregularly irregular tachy HEART: RR S1S2 ABD: BS+, Soft and nontender Lower extremities: no edema SKIN: nonjaundiced Neuro: grossly intact. Objective Data Vital Signs Vital Signs: Vital Signs - 24 hr 08/31/24 16:00 08/31/24 16:00 08/31/24 16:00 Temperature 97.5 F L Pulse Rate 82 92 Pulse Rate [Bilateral Pedal (Dorsalis Pedis) Palpation] Respiratory Rate 20 Blood Pressure 127/76 Pulse Oximetry 92 92 Oxygen Delivery High Flow Therapy with Na Oxygen Flow Rate 45 Fraction of Inspired Oxygen 08/31/24 18:00 08/31/24 20:00 08/31/24 20:00 Temperature 97.3 F L Pulse Rate 98 102 H Pulse Rate [Bilateral Pedal (Dorsalis Pedis) Palpation] 114 H Respiratory Rate 18 Blood Pressure 120/68 Pulse Oximetry 96 Oxygen Delivery Oxygen Flow Rate Fraction of Inspired Oxygen 08/31/24 20:00 08/31/24 20:00 08/31/24 20:25 Temperature Pulse Rate 101 H 97 Pulse Rate [Bilateral Pedal (Dorsalis Pedis) Palpation] Respiratory Rate Blood Pressure Pulse Oximetry 97 95 Oxygen Delivery High Flow Therapy with Na High Flow Therapy with Na Oxygen Flow Rate 40 40 Fraction of Inspired Oxygen 65 65 08/31/24 20:27 08/31/24 20:40 08/31/24 21:30 Temperature Pulse Rate 97 101 H Pulse Rate [Bilateral Pedal (Dorsalis Pedis) Palpation] Respiratory Rate 20 20 Blood Pressure Pulse Oximetry 96 Oxygen Delivery High Flow Therapy with Na Oxygen Flow Rate 40 Fraction of Inspired Oxygen 60 08/31/24 21:49 08/31/24 22:00 08/31/24 23:50 Temperature 97.4 F L Pulse Rate 114 H 101 H 103 H Pulse Rate [Bilateral Pedal (Dorsalis Pedis) Palpation] Respiratory Rate 14 Blood Pressure 139/73 Pulse Oximetry 95 Oxygen Delivery Oxygen Flow Rate Fraction of Inspired Oxygen 08/31/24 23:51 08/31/24 23:53 09/01/24 00:00 Temperature Pulse Rate 95 Pulse Rate [Bilateral Pedal (Dorsalis Pedis) Palpation] 92 Respiratory Rate Blood Pressure Pulse Oximetry 96 Oxygen Delivery High Flow Therapy with Na Oxygen Flow Rate 40 Fraction of Inspired Oxygen 65 09/01/24 02:00 09/01/24 02:15 09/01/24 02:15 Temperature Pulse Rate 86 88 88 Pulse Rate [Bilateral Pedal (Dorsalis Pedis) Palpation] Respiratory Rate 20 Blood Pressure Pulse Oximetry 95 Oxygen Delivery High Flow Therapy with Na Oxygen Flow Rate 40 Fraction of Inspired Oxygen 60 09/01/24 02:40 09/01/24 03:52 09/01/24 03:53 Temperature Pulse Rate 97 97 Pulse Rate [Bilateral Pedal (Dorsalis Pedis) Palpation] 92 Respiratory Rate 20 20 Blood Pressure Pulse Oximetry 88 L Oxygen Delivery High Flow Therapy with Na Oxygen Flow Rate 45 Fraction of Inspired Oxygen 60 09/01/24 04:00 09/01/24 04:00 09/01/24 06:00 Temperature 97.9 F Pulse Rate 90 90 78 Pulse Rate [Bilateral Pedal (Dorsalis Pedis) Palpation] Respiratory Rate 14 Blood Pressure 127/75 Pulse Oximetry 91 Oxygen Delivery Oxygen Flow Rate Fraction of Inspired Oxygen 09/01/24 07:36 09/01/24 08:00 09/01/24 08:00 Temperature 97.8 F Pulse Rate 91 93 Pulse Rate [Bilateral Pedal (Dorsalis Pedis) Palpation] Respiratory Rate 18 Blood Pressure 126/70 Pulse Oximetry 96 99 Oxygen Delivery High Flow Therapy with Na Oxygen Flow Rate 45 Fraction of Inspired Oxygen 60 09/01/24 08:42 09/01/24 08:51 09/01/24 10:00 Temperature Pulse Rate 87 87 89 Pulse Rate [Bilateral Pedal (Dorsalis Pedis) Palpation] Respiratory Rate 16 16 Blood Pressure Pulse Oximetry 99 Oxygen Delivery High Flow Nasal Cannula Oxygen Flow Rate 45 Fraction of Inspired Oxygen 50 09/01/24 11:21 09/01/24 11:45 09/01/24 12:00 Temperature 98 F Pulse Rate 84 Pulse Rate [Bilateral Pedal (Dorsalis Pedis) Palpation] Respiratory Rate 22 H Blood Pressure 118/60 Pulse Oximetry 98 98 Oxygen Delivery High Flow Therapy with Na High Flow Therapy with Na Oxygen Flow Rate 35 45 Fraction of Inspired Oxygen 60 09/01/24 12:00 09/01/24 14:00 Temperature Pulse Rate 91 95 Pulse Rate [Bilateral Pedal (Dorsalis Pedis) Palpation] Respiratory Rate Blood Pressure Pulse Oximetry Oxygen Delivery Oxygen Flow Rate Fraction of Inspired Oxygen Intake/Output Intake/Output: Intake & Output 08/29/24 08/30/24 08/31/24 09/01/24 23:59 23:59 23:59 23:59 Intake Total 7875 282 2673 765 Output Total 445 4182 6696 1620 Balance 025 -2228 -7133 -9144 Meds/Results Medications: Active Medications Generic Name Dose Route Start Last Admin Trade Name Carlos PRN Reason Stop Dose Admin Acetaminophen 650 mg 08/26/24 06:26 09/01/24 04:53 Acetaminophen 325 Mg Tablet PO 650 mg Q4H PRN Administration Mild Pain (1-3) or Fever Acetylcysteine 200 mg 08/30/24 14:00 09/01/24 08:51 Acetylcysteine 20% Inhal Soln 800 Mg/4 Ml Vial INHALATION 200 mg Q6HRT PA Administration Al Hydrox/Mg Hydrox/Simethicone 30 ml 08/26/24 06:26 Mag Hydrox/Al Hydrox/Simeth 30 Ml Udc PO QID PRN Dyspepsia Amlodipine Besylate 10 mg 08/26/24 09:00 08/28/24 08:48 Amlodipine Besylate 10 Mg Tablet PO Not Given DAILY PA Bisacodyl 5 mg 08/26/24 06:26 08/30/24 17:22 Bisacodyl 5 Mg Tablet Ec PO 5 mg DAILY PRN Administration Constipation Dextrose 12.5 gm 09/01/24 12:12 Dextrose 50% 25 Gm/50 Ml Syringe IV PUSH PRN PRN Hypoglycemia Protocol Diltiazem HCl 30 mg/ Diltiazem 90 mg 08/27/24 10:15 09/01/24 14:08 HCl 60 mg PO 90 mg Q8HR PA Administration Fish Oil 2 gm 08/26/24 09:00 09/01/24 09:28 [place] 3 Polyunsat Fatty Acids 1 Gm Cap PO 2 gm BID PA Administration Folic Acid 1 mg 08/29/24 12:55 09/01/24 09:31 Folic Acid 1 Mg Tablet PO 1 mg DAILY PA Administration Furosemide 20 mg 08/26/24 09:00 08/27/24 08:48 Furosemide 20 Mg Tablet PO 20 mg DAILY PA Administration Furosemide 20 mg 09/01/24 09:00 09/01/24 09:28 Furosemide Inj 40 Mg/4 Ml Vial IV PUSH 20 mg BID PA Administration Glucagon 1 mg 09/01/24 12:12 Glucagon For Inj 1 Mg Vial IM PRN PRN Hypoglycemia Protocol Glucose 15 gm 09/01/24 12:12 Glucose Oral Gel 15 Gm Of Glucse In 37.5 Gm Tube PO PRN PRN Hypoglycemia Protocol Guaifenesin 1,200 mg 08/30/24 21:00 09/01/24 09:31 Guaifenesin 12 Hr 600 Mg Tabcr PO 1,200 mg Q12HR PA Administration Hydrochlorothiazide 25 mg 08/26/24 09:00 08/27/24 08:48 Hydrochlorothiazide 25 Mg Tablet PO 25 mg DAILY PA Administration Piperacillin Sod/Tazobactam 50 mls @ 100 mls/hr 08/30/24 21:00 09/01/24 14:06 Sod 3.375 gm/ Sodium Chloride IVPB 100 mls/hr Q6H PA Administration Doxycycline Hyclate 100 mg/ 100 mls @ 100 mls/hr 08/30/24 04:00 09/01/24 04:46 Sodium Chloride IVPB 100 mls/hr Q12H PA Administration Dextrose 1,000 mls @ 100 mls/hr 09/01/24 12:12 Dextrose 5% 1,000 Ml IVPB PRN PRN Hypoglycemia Protocol Insulin Aspart 1 - 3 units 09/01/24 21:00 Insulin Aspart (*Bkc) 100 Units/Ml SUB-Q HS PA Protocol Insulin Aspart 3 - 6 units 09/01/24 12:19 Insulin Aspart (*Bkc) 100 Units/Ml SUB-Q TIDWM PA Protocol Ipratropium [place] 0.5 mg 08/30/24 14:00 09/01/24 08:50 Ipratropium Br 0.02% Inh Soln 0.5 Mg/2.5 Ml Vial INHALATION 0.5 mg Q6HRT PA Administration Irbesartan 150 mg 08/26/24 09:00 08/28/24 08:48 Irbesartan 150 Mg Tablet PO Not Given DAILY PA Levalbuterol HCl 0.63 mg 08/30/24 14:00 09/01/24 08:50 Levalbuterol Neb 1.25 Mg/3 Ml INHALATION 0.63 mg Q6HRT PA Administration Lorazepam 2 mg 08/26/24 21:53 09/01/24 14:32 Lorazepam Inj (*Crx) 2 Mg/Ml Vial IV PUSH 2 mg Q2H PRN Administration CIWA > 15 Lorazepam 2 mg 08/26/24 21:53 08/31/24 17:37 Lorazepam Inj (*Crx) 2 Mg/Ml Vial IV PUSH 2 mg Q4H PRN Administration CIWA 8-15 Lovastatin 40 mg 08/26/24 21:00 08/31/24 21:49 Lovastatin 20 Mg Tablet PO 40 mg HS PA Administration Magnesium Oxide 400 mg 08/26/24 09:00 09/01/24 09:31 Magnesium Oxide 400 Mg Tablet PO 400 mg DAILY PA Administration Methylprednisolone Sodium Succinate 40 mg 08/30/24 14:00 09/01/24 14:08 Methylprednisolone Sod Succ 40 Mg Vial IV PUSH 40 mg Q8HR PA Administration Multivitamins Therapeutic 1 tablet 08/26/24 09:00 09/01/24 09:31 Multivitamins Therapeutic Tab (*Bkc) PO 1 tablet DAILY PA Administration Pantoprazole Sodium 40 mg 08/30/24 21:00 09/01/24 09:28 Pantoprazole Sodium Iv 40 Mg Vial IV PUSH 40 mg Q12HR PA Administration Propranolol HCl 120 mg 08/26/24 21:00 08/31/24 21:49 Propranolol Hcl 60 Mg Capsule Cr PO 120 mg HS PA Administration Sucralfate 1 gm 08/26/24 11:30 09/01/24 11:51 Sucralfate 1 Gm Tablet PO 1 gm ACHS PA Administration Thiamine HCl 100 mg 08/29/24 12:55 09/01/24 09:31 Thiamine Hcl 100 Mg Tablet PO 100 mg QAM PA Administration Radiology Results: ITS Impressions Renal Ultrasound 08/28/24 09:25 IMPRESSION: No hydronephrosis or renal calculi. Findings suggesting medical renal disease. Abdomen Ultrasound 08/28/24 11:48 IMPRESSION: Limited evaluation of the pancreas secondary to overlying bowel gas. Trace perihepatic free fluid. Phasic flow within the portal vein. Hepatomegaly. Single static measurement of the common bile duct is 4 mm, a significant difference from recent CT examination for which MRCP (may be performed without intravenous contrast) is recommended for confirmation. Chest CT 08/29/24 18:13 IMPRESSION: 1. Pneumonia involving the right upper and lower lobe. 2. Bilateral pleural effusion more on the right side with adjacent atelectasis versus pneumonia. 3. Tracheobronchomalacia. 4. Cardiomegaly with congestive haley. Venous Doppler Study 08/30/24 13:26 IMPRESSION: 1. No deep venous thrombosis. Modified Barium Swallow 08/30/24 16:58 IMPRESSION: Pharyngeal dysphagia with laryngeal penetration without aspiration. Please correlate with speech pathologist findings and specific feeding recommendations. Chest X-Ray 09/01/24 06:34 Impression: Mild bibasilar pulmonary edema changes with minimal right pleural effusion. Labs Labs: Laboratory Results - last 24 hr 08/31/24 08/31/24 09/01/24 18:13 23:47 04:11 WBC 7.9 RBC 3.05 L Hgb 10.1 L Hct 31.9 L MCV 104.6 H MCH 33.1 MCHC 31.7 L RDW 13.5 Plt Count 124 L MPV 10.1 Immature Gran % (Auto) 0.6 H Neut % (Auto) 88.6 H Lymph % (Auto) 4.5 L [place] % (Auto) 6.3 Eos % (Auto) 0.0 Baso % (Auto) 0.0 L Lymph # (Auto) 0.36 L [place] # (Auto) 0.5 Eos # (Auto) 0.0 Baso # (Auto) 0.0 Abs Immat Gran (auto) 0.05 H Absolute Neuts (auto) 7.0 H Absolute Nucleated RBC 0.000 Nucleated RBC % 0.0 Sodium 136 L Potassium 3.3 L Chloride 91 L Carbon Dioxide 34 H Anion Gap 11 BUN 40 H Creatinine 2.06 H Estim Creat Clear Calc 41 Estimated GFR 33 L Glucose 151 H POC Capillary Glucose 182 H 154 H Calcium 9.2 Phosphorus 4.2 Magnesium 1.7 Total Bilirubin 1.0 AST 65 H ALT 77 H Alkaline Phosphatase 91 Total Protein 8.1 Albumin 3.8 09/01/24 11:55 WBC RBC Hgb Hct MCV MCH MCHC RDW Plt Count MPV Immature Gran % (Auto) Neut % (Auto) Lymph % (Auto) [place] % (Auto) Eos % (Auto) Baso % (Auto) Lymph # (Auto) [place] # (Auto) Eos # (Auto) Baso # (Auto) Abs Immat Gran (auto) Absolute Neuts (auto) Absolute Nucleated RBC Nucleated RBC % Sodium Potassium Chloride Carbon Dioxide Anion Gap BUN Creatinine Estim Creat Clear Calc Estimated GFR Glucose POC Capillary Glucose 229 H Calcium Phosphorus Magnesium Total Bilirubin AST ALT Alkaline Phosphatase Total Protein Albumin Quality VTE Prophylaxis VTE prophylaxis: mechanical ordered
[2024-09-01] MEDS: PROPRANOLOL HCL 60 MG CAPSULE CR 120 MG PO (21:10)
[2024-09-01] MEDS: LOVASTATIN 20 MG TABLET 40 MG PO (21:11)
[2024-09-02] VITALS (20 sets, daily range): BP systolic 120–151; BP diastolic 66–81; PULSE 72–101; RESP 16–20; TEMP 36.3–36.6; O2SAT 84–99
[2024-09-02] MEDS: ACETYLCYSTEINE 20% INHAL SOLN 800 MG/4 ML VIAL 200 MG INHALATION ×2 (02:28→07:32)
[2024-09-02] MEDS: IPRATROPIUM BR 0.02% INH SOLN 0.5 MG/2.5 ML VIAL INHALATION ×2 (02:29→07:32)
[2024-09-02] MEDS: PIPERACILLIN/TAZOBACTAM SOD 3.375 GM in SODIUM CHLORIDE 0.9% IV 50 ML 100 ML IVPB ×2 (03:16→09:00)
[2024-09-02] MEDS: DOXYCYCLINE IV 100 MG in SODIUM CHLORIDE 0.9% IV 100 ML IVPB (03:34)
[2024-09-02 05:05] LABS: Hematocrit 31.7 % (42.0-52.0); Hemoglobin 10.1 g/dL (14.0-18.0); Immature Granulocyte Percent A 1.0 % (0-0.5); Lymphocytes Absolute Auto 0.36 K/mm3 (0.9-3.2); Mean Corpuscular HGB Conc 31.9 g/dl (32-36); Mean Corpuscular Hemoglobin 33.3 pg (26-34); Mean Corpuscular Volume 104.6 fl (80-100); Nucleated Red Blood Cells Absolute Auto 0.000 K/mm3 (0.0-0.012); Nucleated Red Blood Cells Perc 0.0 % (0.0-0.2); Platelet Count Result 150 k/mm3 (150-375); Red Blood Count 3.03 M/mm3 (4.6-6.20); White Blood Count 8.4 K/mm3 (4.5-10.0)
[2024-09-02 05:32] LABS: Alanine Aminotransferase 66 U/L (6-50); Albumin Level 3.8 g/dL (3.5-5.1); Alkaline Phosphatase 99 U/L (38-126); Anion Gap 10 mmol/L (4-12); Anisocytosis 1+; Aspartate Amino Transferase 56 U/L (17-59); Bilirubin,Total 0.9 mg/dL (0.2-1.3); Blood Urea Nitrogen 45 mg/dL (9-20); Calcium 9.2 mg/dL (8.4-10.2); Carbon Dioxide 34 mmol/L (22-30); Chloride 93 mmol/L (98-107); Estimated CRCL calculation 52 ml/min; Estimated Glomerular Filt Rate 43; Glucose 161 mg/dL (65-110); Magnesium 1.5 mg/dL (1.6-2.3); Potassium 3.1 mmol/L (3.4-5.0); Sodium 137 mmol/L (137-145); Total Protein 7.8 g/dL (6.3-8.2)
[2024-09-02 05:33] LABS: Macrocytosis 1+ (NORMAL); Schistocytes None Seen
[2024-09-02] MEDS: SUCRALFATE 1 GM TABLET PO ×4 (05:35→20:28)
[2024-09-02] MEDS: dilTIAZem HCL TAB 30 MG, dilTIAZem HCL TAB 60 MG 90 MG PO ×3 (05:36→22:20)
[2024-09-02] MEDS: LORazepam INJ (*CRX) 2 MG/ML VIAL IV PUSH (05:46)
[2024-09-02] MEDS: POTASSIUM CHLORIDE 20 MEQ ER TABLET 40 MEQ PO (06:30)
[2024-09-02 08:15] LABS: NT Pro B Type Natriuretic Pept 1850 pg/mL (19.9-100)
[2024-09-02 08:24] LABS: Procalcitonin 0.1 ng/mL
[2024-09-02] MEDS: FUROSEMIDE INJ 40 MG/4 ML VIAL 20 MG IV PUSH ×2 (08:59→16:03)
[2024-09-02] MEDS: PANTOPRAZOLE SODIUM IV 40 MG VIAL IV PUSH ×2 (08:59→20:27)
[2024-09-02] MEDS: OMEGA 3 POLYUNSAT FATTY ACIDS 1 GM CAP 2 GM PO ×2 (09:00→16:04)
[2024-09-02] MEDS: guaiFENesin 12 HR 600 MG TABCR 1200 MG PO ×2 (09:00→20:26)
[2024-09-02] MEDS: THIAMINE HCL 100 MG TABLET PO (09:00)
[2024-09-02] MEDS: FOLIC ACID 1 MG TABLET PO (09:00)
[2024-09-02] MEDS: MAGNESIUM OXIDE 400 MG TABLET PO (09:00)
[2024-09-02] MEDS: MULTIVITAMINS THERAPEUTIC TAB (*BKC) 1 TABLET PO (09:00)
[2024-09-02] MEDS: ACETAMINOPHEN 325 MG TABLET 650 MG PO ×3 (09:04→18:01)
--- NOTE | 2024-09-02 10:01 | PM.PNPUL ---
Progress Note: A&P Assessment and Plan (1) Respiratory failure with hypoxia and hypercapnia: Code(s): J96.91 - Respiratory failure, unspecified with hypoxia; J96.92 - Respiratory failure, unspecified with hypercapnia Status: Acute Assessment and Plan: Patient with a history of tobacco use but no formal diagnosis of COPD. I have no PFTs. At baseline he is on no oxygen at home. He has no bullous emphysema on his CT scan. Patient presented on 08/25 with shortness of breath, fall in AFib RVR with a CT scan that showed no PE and clear lung adair. He developed acute renal failure and his weight today is 128 kilos with an admission weight of 117.9 kg and he has anasarca. His CT scan on 08/29/2024 shows right upper lobe and right lower lobe infiltrates with bilateral PEs in his right greater than left. Chest x-ray on 08/30/2024 shows dense consolidation right upper lobe and a sail sign with shift of the mediastinum to the right consistent with right upper and lower lobe atelectasis/ collapse. Etiology of patient's hypoxemic and hypercarbic respiratory failure includes: Mucus plugging, pulmonary edema, infection, Benzodiazepine use to prevent DTs.. Plan: Continue BiPAP p.r.n. during the day and scheduled at night. I will increase the respiratory rate from 12 to 18 given his blood gases 7.36/48/70. Goal saturation 90-94%. Adjust oxygen accordingly and currently is on 10 L nasal cannula with saturations 92%. regarding infection, patient is on doxycycline day 5 and Zosyn day 4 and I agree with this antibiotics at this time. procalcitonin is 0.2. I will send an MRSA nasal swab and if this is positive patient should be started on vancomycin and Zosyn changed to meropenem. I will send COVID, RSV, influenza RT PCR, urine for Legionella, urine for pneumococcal, mycoplasma IgM and respiratory pathogen panel looking for etiologies for infection. regarding possible mucus plugging I will start guaifenesin 1200 mg p.o. b.i.d., nebulized ipratropium and levalbuterol q.6 hours, nebulized Mucomyst q.12 hours, Cornet flutter valve, EzPAP treatment. Regarding pulmonary edema his BNP is 4 4460, he has anasarca and his weight is increased 10.1 kg since admission. his renal failure is improving and he is being diuresed with Lasix 40 IV b.i.d.. He does not need steroids from a pulmonary perspective. Inpatient pulmonary consult services will resume on 09/02/2024, call with questions. 09/02/24: Overall the patient tells me he is breathing normal. He denies rest shortness of breath. He has occasional phlegm with no hemoptysis. He is afebrile. He has been off BiPAP since 08/31. Currently he is on 3 L with saturations 95-97%. I decreased him to room air and his saturations were 90%. White blood cell count 8.4, creatinine 1.61, Procalcitonin is decreased from 0.2 on 08/30/2024 to 0.1 today. BNP has decreased from 4460 on 08/30/2024 to 1850 today. yesterday he was -2.4 L, cumulative he is -8.8 L since admission. His weight today is 124. Plan: Patient has received a total of 8 days of doxycycline and 7 days of Zosyn. His chest x-ray is improved, he has no leukocytosis and his procalcitonin is normal. He is afebrile. Will discontinue antibiotics today. Patient has no wheezing and no phlegm production. Will discontinue ipratropium, levalbuterol and Mucomyst nebulizers. Continue guaifenesin 1200 mg p.o. b.i.d.. Goal saturation 90-94%. I will perform an overnight oximetry on room air to assess for nocturnal hypoxia. Out of bed to chair and PT. From a pulmonary perspective if patient remains clinically stable will be ready for discharge on 09/03/2024 on these pulmonary medications: Guaifenesin 1200 mg p.o. q.12 hours p.r.n. congestion Oxygen at rest and with activity per formal home O2 assessment on the day of discharge. Oxygen at night as guided by overnight oximetry on room air on 09/02/2024. Discussed with Dr. Nowak. Subjective Date/time seen: 09/02/24 10:01 Interval history: 08/30/2024: This is a new pulmonary consult for hypoxemic respiratory failure. 63-year-old with a history of AFib off of Eliquis because a peptic ulcer disease, neck surgery, alcohol use, cirrhosis. patient is currently on BiPAP. For he received Ativan this morning for alcohol withdrawal and does wake up and shows 2 fingers and wiggles toes. Patient presented to [place] emergency department on 08/25/2024 with shortness of breath, a fall and AFib with RVR. Vital signs on presentation 108/71, heart rate 153, on 4 L nasal cannula saturations were 91%. White blood cell count 7.4, eosinophils 2%, creatinine 1.28, serum bicarbonate 25, BNP 438, troponin 0.106, 0.111, 0.124, chest x-ray with mild congestion D-dimer positive. CT angiogram of the chest showed no PE, no focal infiltrates or effusions and cirrhotic liver with small amount of perihepatic ascites. Patient was treated with IV diltiazem, IV Lasix and his weight was 117.9 kg. On 08/26 patient received Librium and Ativan, he is on 2 L with saturation 97%. Echocardiogram with EF 60 65% abnormal diastolic function mild tricuspid regurg with a PASP of 37 normal RV size and function normal right atrial size. On 08/27/2024 patient is on 2 L with saturations 90-100%. Creatinine was 2.82. Chest x-ray showed moderate pulmonary edema and later that night he was placed on CPAP 70%. Chest x-ray showed a right upper lobe infiltrate and he was started on Zosyn. On 08/28/2024 creatinine 4.60, required 6 L nasal cannula. 08/29/2024, creatinine 4.20, AFib was controlled. Diagnosed with alcoholic hepatitis. Chest x-ray with improved right upper lobe but continued congestion. Developed hematuria. CT scan of the chest shows right upper lobe infiltrate, right lower lobe infiltrate small effusions right greater than left, no bullous emphysema. 08/30/2024: Patient is currently in the room on BiPAP set rate of 12, breathing 14 times a minute, pressure 16/8, inspiratory time 1.0, rise of 3 and 80% FiO2 with an ABG of 7.36/48/70. He is afebrile. white blood cell count 7.5, creatinine 3.65, Chest x-ray shows dense consolidation right upper lobe, sail sign consistent with right lower lobe collapse with clear left lung and shift of the mediastinum to the right. I took him off the BiPAP and placed him on 10 L nasal cannula on after 12 minutes of saturations were 91%. He was able to cough but has a weak cough and was unable to expectorate any phlegm. 09/02/24: Overall the patient tells me he is breathing normal. He denies rest shortness of breath. He has occasional phlegm with no hemoptysis. He is afebrile. He has been off BiPAP since 08/31. Currently he is on 3 L with saturations 95-97%. I decreased him to room air and his saturations were 90%. White blood cell count 8.4, creatinine 1.61, Procalcitonin is decreased from 0.2 on 08/30/2024 to 0.1 today. BNP has decreased from 4460 on 08/30/2024 to 1850 today. Yesterday he was -2.4 L, cumulative he is -8.8 L since admission. His weight today is 124. DATA: 08/29/24: CT diagnostic chest wo con Ordering provider: Fanta Nowak MD History: 63 years Male with . sob . Comparison: None. Technique: CT chest without IV contrast.Radiation reduction technique utilized. The dose-length product was 861.43 mGy-cm. FINDINGS: VISUALIZED THORACIC INLET: Normal. MEDIASTINUM: Aorta/coronary arteries: Mild atheromatous disease. Heart/other: The heart is slightly enlarged. Lymph nodes: No mediastinal or hilar adenopathy. Slight narrowing of the distal trachea. Severe narrowing of the main bronchi. LUNGS: Pneumonia seen in the right upper and lower lobe posteriorly. Right moderate pleural effusion. Minimal left pleural effusion with adjacent atelectasis versus pneumonia. No pulmonary nodules or masses. No pneumothorax. VISUALIZED UPPER ABDOMEN: Soft tissue density adjacent to the right lobe of the liver measuring 4.5 cm. Ultrasound evaluation advised. Benign calcifications of the spleen. Otherwise, the visualized upper abdomen is normal. MUSCULOSKELETAL: Soft tissues: The superficial soft tissues are normal. Bones: Age appropriate degenerative changes of the spine. IMPRESSION: 1. Pneumonia involving the right upper and lower lobe. 2. Bilateral pleural effusion more on the right side with adjacent atelectasis versus pneumonia. 3. Tracheobronchomalacia. 4. Cardiomegaly with congestive haley. 08/26/24: Clinical Indication: Pulmonary embolus CT Scan of the Chest with Contrast: Technique: Contiguous sections were acquired throughout the chest after intravenous administration of 100 cc of Omnipaque 350. Dose reduction technique was used on this scan by utilizing automated exposure control and iterative reconstruction technique. The dose-length product (DLP) was 794.23 mGy-cm. COMPARISON: 08/25/2024 at 10:50 PM Findings: There is no evidence of any significant mediastinal, hilar or axillary lymphadenopathy. There is no filling defect in the pulmonary arterial tree to suggest pulmonary embolus. There is no evidence of aortic dissection or aneurysm. There is no evidence of pleural or pericardial effusion. The lungs are clear. No pulmonary nodules or infiltrates are noted. Images through the upper abdomen reveal cirrhotic morphology of liver with small amount of perihepatic ascites. Impression: No evidence of pulmonary embolus, aortic dissection, or aortic aneurysm. Clear lungs. Cirrhotic liver with small amount of perihepatic ascites. 08/26/24: Summary 1. Left ventricular systolic function is normal, estimated at 60-65. 2. The left ventricular diastolic function is abnormal. 3. Left atrial chamber dimension is mildly enlarged. 4. There is mild mitral valve regurgitation. 5. There is mild tricuspid valve regurgitation. 6. Mild pulmonary hypertension, estimated pulmonary arterial systolic pressure is 37 mmHg. Left Ventricle Left ventricular chamber dimension is normal. Left ventricular systolic function is normal, estimated at 60-65. There is no increased left ventricular wall thickness. Left ventricular septal wall motion is normal. The left ventricular diastolic function is abnormal. Right Ventricle Right ventricular chamber dimension is normal. Right ventricular systolic function is normal. Right Atria Right atrial chamber dimension is normal. Review of Systems Constitutional: Constitutional: Reports no additional constitutional complaints Eyes: Eyes: Reports no additional eye complaints ENT: Reports system reviewed and no additional complaints, except as documented Cardiovascular: Cardiovascular: Reports no additional cardiovascular complaints Respiratory: Respiratory: Reports no additional respiratory complaints Gastrointestinal: Gastrointestinal: Reports no additional gastrointestinal complaints Musculoskeletal: Musculoskeletal: Reports no additional musculoskeletal complaints Neurologic: Reports system reviewed and no additional complaints, except as documented Psychiatric: Psychiatric: Reports no additional psychiatric complaints Endocrine: Endocrine: Reports no additional endocrine complaints Hematologic/Lymphatic: Hematologic/Lymphatic: Reports no additional hematologic/lymphatic complaints Allergic/Immunologic: Allergic/Immunologic: Reports no additional allergic/immunologic complaints Exam Const: General: cooperative and comfortable Orientation/consciousness: oriented to person, oriented to place and oriented to time Other: Obese HENMT: Head: normal to inspection Ears: hearing grossly normal bilaterally Eyes: General: appearance normal, both eyes and all related structures Neck: Neck: normal visual inspection Chest: Chest palpation & inspection: normal inspection of the chest Resp: Effort & Inspection: normal respiratory effort and able to speak in complete sentences Auscultation: no crackles, no rales, no rhonchi, no wheezes and diminished lung sounds Cardio: Jugular venous distension: no JVD GI: Inspection: normal to inspection Skin: General skin exam: normal color Neuro: General: oriented to person, oriented to place and oriented to time Other: shows 2 fingers and wiggle his toes to command. Extrem: General: normal to inspection Other: improved Anasarca Psych: Appearance: grossly normal Objective Data Vital Signs Vital Signs: Vital Signs - 24 hr 09/01/24 11:21 09/01/24 11:45 09/01/24 12:00 Temperature 36.6 C Pulse Rate 84 Pulse Rate [Monitor] Respiratory Rate 22 H Blood Pressure 118/60 Pulse Oximetry 98 98 Oxygen Delivery High Flow Therapy with Na High Flow Therapy with Na Oxygen Flow Rate 35 45 Fraction of Inspired Oxygen 60 09/01/24 12:00 09/01/24 14:00 09/01/24 15:50 Temperature Pulse Rate 91 95 67 Pulse Rate [Monitor] Respiratory Rate 16 Blood Pressure Pulse Oximetry Oxygen Delivery Oxygen Flow Rate Fraction of Inspired Oxygen 09/01/24 16:00 09/01/24 16:00 09/01/24 16:00 Temperature 36.6 C Pulse Rate 70 61 Pulse Rate [Monitor] Respiratory Rate 18 Blood Pressure 129/93 H Pulse Oximetry 99 98 Oxygen Delivery High Flow Therapy with Na Oxygen Flow Rate 45 Fraction of Inspired Oxygen 60 09/01/24 16:28 09/01/24 18:00 09/01/24 18:02 Temperature Pulse Rate 67 84 Pulse Rate [Monitor] Respiratory Rate 16 Blood Pressure Pulse Oximetry 99 99 Oxygen Delivery High Flow Nasal Cannula High Flow Nasal Cannula Oxygen Flow Rate 40 5 Fraction of Inspired Oxygen 40 09/01/24 18:20 09/01/24 19:26 09/01/24 20:00 Temperature 36.7 C Pulse Rate 86 Pulse Rate [Monitor] 104 H Respiratory Rate 17 Blood Pressure 122/58 L Pulse Oximetry 98 99 Oxygen Delivery High Flow Nasal Cannula Oxygen Flow Rate 3 Fraction of Inspired Oxygen 09/01/24 20:00 09/01/24 20:00 09/01/24 20:20 Temperature Pulse Rate 93 80 Pulse Rate [Monitor] Respiratory Rate 16 Blood Pressure Pulse Oximetry 99 Oxygen Delivery High Flow Therapy with Na Oxygen Flow Rate 2 Fraction of Inspired Oxygen 09/01/24 20:21 09/01/24 20:36 09/01/24 21:10 Temperature Pulse Rate 80 104 H Pulse Rate [Monitor] Respiratory Rate 16 Blood Pressure Pulse Oximetry 99 Oxygen Delivery High Flow Nasal Cannula Oxygen Flow Rate 3 Fraction of Inspired Oxygen 09/01/24 22:00 09/01/24 23:46 09/02/24 00:00 Temperature 36.8 C Pulse Rate 82 82 91 Pulse Rate [Monitor] Respiratory Rate 17 Blood Pressure 124/73 Pulse Oximetry 94 Oxygen Delivery Oxygen Flow Rate Fraction of Inspired Oxygen 09/02/24 00:00 09/02/24 02:00 09/02/24 02:28 Temperature Pulse Rate 88 80 Pulse Rate [Monitor] Respiratory Rate 16 Blood Pressure Pulse Oximetry 94 Oxygen Delivery High Flow Therapy with Na Oxygen Flow Rate 2 Fraction of Inspired Oxygen 09/02/24 02:42 09/02/24 03:21 09/02/24 03:39 Temperature 36.6 C Pulse Rate 80 84 Pulse Rate [Monitor] Respiratory Rate 16 16 Blood Pressure 151/81 H Pulse Oximetry 93 91 Oxygen Delivery High Flow Therapy with Na Oxygen Flow Rate 3 Fraction of Inspired Oxygen 09/02/24 04:00 09/02/24 05:58 09/02/24 07:30 Temperature Pulse Rate 92 101 H 82 Pulse Rate [Monitor] Respiratory Rate 16 Blood Pressure Pulse Oximetry Oxygen Delivery Oxygen Flow Rate Fraction of Inspired Oxygen 09/02/24 07:30 09/02/24 07:40 09/02/24 08:00 Temperature 36.6 C Pulse Rate 82 85 80 Pulse Rate [Monitor] Respiratory Rate 20 16 18 Blood Pressure 120/66 Pulse Oximetry 95 95 Oxygen Delivery Nasal Cannula Oxygen Flow Rate 3 Fraction of Inspired Oxygen 32 Intake/Output Intake/Output: Intake & Output 08/30/24 08/31/24 09/01/24 09/02/24 23:59 23:59 23:59 23:59 Intake Total 650 1700 1265 770 Output Total 8545 5767 6351 1150 [facility] [phone] Meds/Results Medications: Active Medications Generic Name Dose Route Start Last Admin Trade Name Freq PRN Reason Stop Dose Admin Acetaminophen 650 mg 08/26/24 06:26 09/02/24 09:04 Acetaminophen 325 Mg Tablet PO 650 mg Q4H PRN Administration Mild Pain (1-3) or Fever Acetylcysteine 200 mg 08/30/24 14:00 09/02/24 07:32 Acetylcysteine 20% Inhal Soln 800 Mg/4 Ml Vial INHALATION 200 mg Q6HRT PA Administration Al Hydrox/Mg Hydrox/Simethicone 30 ml 08/26/24 06:26 Mag Hydrox/Al Hydrox/Simeth 30 Ml Udc PO QID PRN Dyspepsia Amlodipine Besylate 10 mg 08/26/24 09:00 08/28/24 08:48 Amlodipine Besylate 10 Mg Tablet PO Not Given DAILY PA Bisacodyl 5 mg 08/26/24 06:26 08/30/24 17:22 Bisacodyl 5 Mg Tablet Ec PO 5 mg DAILY PRN Administration Constipation Dextrose 12.5 gm 09/01/24 12:12 Dextrose 50% 25 Gm/50 Ml Syringe IV PUSH PRN PRN Hypoglycemia Protocol Diltiazem HCl 30 mg/ Diltiazem 90 mg 08/27/24 10:15 09/02/24 05:36 HCl 60 mg PO 90 mg Q8HR PA Administration Fish Oil 2 gm 08/26/24 09:00 09/02/24 09:00 [place] 3 Polyunsat Fatty Acids 1 Gm Cap PO 2 gm BID PA Administration Folic Acid 1 mg 08/29/24 12:55 09/02/24 09:00 Folic Acid 1 Mg Tablet PO 1 mg DAILY PA Administration Furosemide 20 mg 08/26/24 09:00 08/27/24 08:48 Furosemide 20 Mg Tablet PO 20 mg DAILY PA Administration Furosemide 20 mg 09/01/24 09:00 09/02/24 08:59 Furosemide Inj 40 Mg/4 Ml Vial IV PUSH 20 mg BID PA Administration Glucagon 1 mg 09/01/24 12:12 Glucagon For Inj 1 Mg Vial IM PRN PRN Hypoglycemia Protocol Glucose 15 gm 09/01/24 12:12 Glucose Oral Gel 15 Gm Of Glucse In 37.5 Gm Tube PO PRN PRN Hypoglycemia Protocol Guaifenesin 1,200 mg 08/30/24 21:00 09/02/24 09:00 Guaifenesin 12 Hr 600 Mg Tabcr PO 1,200 mg Q12HR PA Administration Hydrochlorothiazide 25 mg 08/26/24 09:00 08/27/24 08:48 Hydrochlorothiazide 25 Mg Tablet PO 25 mg DAILY PA Administration Piperacillin Sod/Tazobactam 50 mls @ 100 mls/hr 08/30/24 21:00 09/02/24 09:00 Sod 3.375 gm/ Sodium Chloride IVPB 100 mls/hr Q6H PA Administration Doxycycline Hyclate 100 mg/ 100 mls @ 100 mls/hr 08/30/24 04:00 09/02/24 04:34 Sodium Chloride IVPB Infused Q12H PA Infusion Dextrose 1,000 mls @ 100 mls/hr 09/01/24 12:12 Dextrose 5% 1,000 Ml IVPB PRN PRN Hypoglycemia Protocol Insulin Aspart 1 - 3 units 09/01/24 21:00 09/01/24 21:34 Insulin Aspart (*Bkc) 100 Units/Ml SUB-Q Not Given HS PA Protocol Insulin Aspart 3 - 6 units 09/01/24 12:19 09/02/24 08:58 Insulin Aspart (*Bkc) 100 Units/Ml SUB-Q Not Given TIDWM PA Protocol Ipratropium [employer] 0.5 mg 08/30/24 14:00 09/02/24 07:32 Ipratropium Br 0.02% Inh Soln 0.5 Mg/2.5 Ml Vial INHALATION 0.5 mg Q6HRT PA Administration Irbesartan 150 mg 08/26/24 09:00 08/28/24 08:48 Irbesartan 150 Mg Tablet PO Not Given DAILY PA Levalbuterol HCl 0.63 mg 08/30/24 14:00 09/02/24 07:32 Levalbuterol Neb 1.25 Mg/3 Ml INHALATION 0.63 mg Q6HRT PA Administration Lorazepam 2 mg 08/26/24 21:53 09/01/24 14:32 Lorazepam Inj (*Crx) 2 Mg/Ml Vial IV PUSH 2 mg Q2H PRN Administration CIWA > 15 Lorazepam 2 mg 08/26/24 21:53 09/02/24 05:46 Lorazepam Inj (*Crx) 2 Mg/Ml Vial IV PUSH 2 mg Q4H PRN Administration CIWA 8-15 Lovastatin 40 mg 08/26/24 21:00 09/01/24 21:11 Lovastatin 20 Mg Tablet PO 40 mg HS PA Administration Magnesium Oxide 400 mg 08/26/24 09:00 09/02/24 09:00 Magnesium Oxide 400 Mg Tablet PO 400 mg DAILY PA Administration Methylprednisolone Sodium Succinate 40 mg 08/30/24 14:00 09/02/24 05:35 Methylprednisolone Sod Succ 40 Mg Vial IV PUSH 40 mg Q8HR PA Administration Multivitamins Therapeutic 1 tablet 08/26/24 09:00 09/02/24 09:00 Multivitamins Therapeutic Tab (*Bkc) PO 1 tablet DAILY PA Administration Pantoprazole Sodium 40 mg 08/30/24 21:00 09/02/24 08:59 Pantoprazole Sodium Iv 40 Mg Vial IV PUSH 40 mg Q12HR PA Administration Potassium Chloride 20 meq 09/02/24 12:03 Potassium Chloride 20 Meq Er Tablet PO 09/02/24 12:04 ONCE ONE Propranolol HCl 120 mg 08/26/24 21:00 09/01/24 21:10 Propranolol Hcl 60 Mg Capsule Cr PO 120 mg HS PA Administration Sucralfate 1 gm 08/26/24 11:30 09/02/24 05:35 Sucralfate 1 Gm Tablet PO 1 gm ACHS PA Administration Thiamine HCl 100 mg 08/29/24 12:55 09/02/24 09:00 Thiamine Hcl 100 Mg Tablet PO 100 mg QAM PA Administration Radiology Results: ITS Impressions Renal Ultrasound 08/28/24 09:25 IMPRESSION: No hydronephrosis or renal calculi. Findings suggesting medical renal disease. Abdomen Ultrasound 08/28/24 11:48 IMPRESSION: Limited evaluation of the pancreas secondary to overlying bowel gas. Trace perihepatic free fluid. Phasic flow within the portal vein. Hepatomegaly. Single static measurement of the common bile duct is 4 mm, a significant difference from recent CT examination for which MRCP (may be performed without intravenous contrast) is recommended for confirmation. Chest CT 08/29/24 18:13 IMPRESSION: 1. Pneumonia involving the right upper and lower lobe. 2. Bilateral pleural effusion more on the right side with adjacent atelectasis versus pneumonia. 3. Tracheobronchomalacia. 4. Cardiomegaly with congestive haley. Venous Doppler Study 08/30/24 13:26 IMPRESSION: 1. No deep venous thrombosis. Modified Barium Swallow 08/30/24 16:58 IMPRESSION: Pharyngeal dysphagia with laryngeal penetration without aspiration. Please correlate with speech pathologist findings and specific feeding recommendations. Chest X-Ray 09/01/24 06:34 Impression: Mild bibasilar pulmonary edema changes with minimal right pleural effusion. Labs Labs: Laboratory Results - last 24 hr 09/01/24 09/01/24 09/01/24 11:55 16:27 21:22 WBC RBC Hgb Hct MCV MCH MCHC RDW Plt Count MPV Immature Gran % (Auto) Neut % (Auto) Lymph % (Auto) [place] % (Auto) Eos % (Auto) Baso % (Auto) Lymph # (Auto) [place] # (Auto) Eos # (Auto) Baso # (Auto) Abs Immat Gran (auto) Absolute Neuts (auto) Absolute Nucleated RBC Band Neutrophils % Nucleated RBC % Platelet Estimate Anisocytosis Macrocytosis Schistocytes Sodium Potassium Chloride Carbon Dioxide Anion Gap BUN Creatinine Estim Creat Clear Calc Estimated GFR Glucose POC Capillary Glucose 229 H 105 132 H Calcium Phosphorus Magnesium Total Bilirubin AST ALT Alkaline Phosphatase NT-Pro-B Natriuret Pep Total Protein Albumin Procalcitonin 09/02/24 09/02/24 04:45 04:49 WBC 8.4 RBC 3.03 L Hgb 10.1 L Hct 31.7 L MCV 104.6 H MCH 33.3 MCHC 31.9 L RDW 13.4 Plt Count 150 MPV 9.8 Immature Gran % (Auto) 1.0 H Neut % (Auto) 86.4 H Lymph % (Auto) 4.3 L [place] % (Auto) 8.3 Eos % (Auto) 0.0 Baso % (Auto) 0.0 L Lymph # (Auto) 0.36 L [place] # (Auto) 0.7 H Eos # (Auto) 0.0 Baso # (Auto) 0.0 Abs Immat Gran (auto) 0.08 H Absolute Neuts (auto) 7.3 H Absolute Nucleated RBC 0.000 Band Neutrophils % Not Reportable Nucleated RBC % 0.0 Platelet Estimate Adequate Anisocytosis 1+ Macrocytosis 1+ Schistocytes None seen Sodium 137 Potassium 3.1 L Chloride 93 L Carbon Dioxide 34 H Anion Gap 10 BUN 45 H Creatinine 1.61 H Estim Creat Clear Calc 52 Estimated GFR 43 L Glucose 161 H POC Capillary Glucose Calcium 9.2 Phosphorus 4.1 Magnesium 1.5 L Total Bilirubin 0.9 AST 56 ALT 66 H Alkaline Phosphatase 99 NT-Pro-B Natriuret Pep 1850 H Total Protein 7.8 Albumin 3.8 Procalcitonin 0.1
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
--- NOTE | 2024-09-02 10:54 | P.PNCA_ITS ---
Progress Note: A&P Assessment and Plan (1) Acute on chronic diastolic heart failure: Code(s): I50.33 - Acute on chronic diastolic (congestive) heart failure Status: Acute (2) Persistent atrial fibrillation: Code(s): I48.19 - Other persistent atrial fibrillation Status: Acute (3) Hypertension: Code(s): I10 - Essential (primary) hypertension Status: Acute Plan 63-year-old man with persistent atrial fibrillation, chronic systolic cardiomyopathy (recover LVEF), hyperlipidemia, peptic ulcer disease, possible cirrhosis from alcohol abuse presented with fall Persistent atrial fibrillation -not on anticoagulation due to fall risk in setting of alcohol abuse along with possible cirrhosis, and his peptic ulcer disease -we have briefly discussed that his CHADsVASc score is currently 2 but will be 3 when he turns 64 and his HAS-BLED score of 3 (liver disease, alcohol abuse, PUD) and that LAAO would be an option to lower his risk of ischemic stroke without further increasing his risk of bleeding -he will follow-up with Dr. Arreola and make a final decision on LAAO after which he can see me -continue propranolol and diltiazem on discharge Chronic systolic heart failure (recover LVEF) -with stop hydrochlorothiazide on discharge -continue IV Lasix for now and likely transition to oral Lasix 40 mg p.o. daily on discharge -will add Jardiance 10 mg p.o. daily Hyperlipidemia -continue lovastatin Subjective Date/time seen: 09/02/24 10:54 Interval history: Shortness of breath improving. Review of Systems Cardiovascular: Cardiovascular: Reports as per HPI Respiratory: Respiratory: Reports as per HPI Exam Const: Other: Ill-appearing HENMT: Mouth: Yes moist mucous membranes Eyes: EOM: EOMs intact bilaterally Neck: Neck: no JVD Resp: Auscultation: rales Cardio: Rate: regular rate Rhythm: abnormal rhythm Neuro: Other: Tremors Extrem: General: pedal edema Objective Data Vital Signs Vital Signs: Vital Signs - 24 hr 09/01/24 11:21 09/01/24 11:45 09/01/24 12:00 Temperature 36.6 C Pulse Rate 84 Pulse Rate [Monitor] Respiratory Rate 22 H Blood Pressure 118/60 Pulse Oximetry 98 98 Oxygen Delivery High Flow Therapy with Na High Flow Therapy with Na Oxygen Flow Rate 35 45 Fraction of Inspired Oxygen 60 09/01/24 12:00 09/01/24 14:00 09/01/24 15:50 Temperature Pulse Rate 91 95 67 Pulse Rate [Monitor] Respiratory Rate 16 Blood Pressure Pulse Oximetry Oxygen Delivery Oxygen Flow Rate Fraction of Inspired Oxygen 09/01/24 16:00 09/01/24 16:00 09/01/24 16:00 Temperature 36.6 C Pulse Rate 70 61 Pulse Rate [Monitor] Respiratory Rate 18 Blood Pressure 129/93 H Pulse Oximetry 99 98 Oxygen Delivery High Flow Therapy with Na Oxygen Flow Rate 45 Fraction of Inspired Oxygen 60 09/01/24 16:28 09/01/24 18:00 09/01/24 18:02 Temperature Pulse Rate 67 84 Pulse Rate [Monitor] Respiratory Rate 16 Blood Pressure Pulse Oximetry 99 99 Oxygen Delivery High Flow Nasal Cannula High Flow Nasal Cannula Oxygen Flow Rate 40 5 Fraction of Inspired Oxygen 40 09/01/24 18:20 09/01/24 19:26 09/01/24 20:00 Temperature 36.7 C Pulse Rate 86 Pulse Rate [Monitor] 104 H Respiratory Rate 17 Blood Pressure 122/58 L Pulse Oximetry 98 99 Oxygen Delivery High Flow Nasal Cannula Oxygen Flow Rate 3 Fraction of Inspired Oxygen 09/01/24 20:00 09/01/24 20:00 09/01/24 20:20 Temperature Pulse Rate 93 80 Pulse Rate [Monitor] Respiratory Rate 16 Blood Pressure Pulse Oximetry 99 Oxygen Delivery High Flow Therapy with Na Oxygen Flow Rate 2 Fraction of Inspired Oxygen 09/01/24 20:21 09/01/24 20:36 09/01/24 21:10 Temperature Pulse Rate 80 104 H Pulse Rate [Monitor] Respiratory Rate 16 Blood Pressure Pulse Oximetry 99 Oxygen Delivery High Flow Nasal Cannula Oxygen Flow Rate 3 Fraction of Inspired Oxygen 09/01/24 22:00 09/01/24 23:46 09/02/24 00:00 Temperature 36.8 C Pulse Rate 82 82 91 Pulse Rate [Monitor] Respiratory Rate 17 Blood Pressure 124/73 Pulse Oximetry 94 Oxygen Delivery Oxygen Flow Rate Fraction of Inspired Oxygen 09/02/24 00:00 09/02/24 02:00 09/02/24 02:28 Temperature Pulse Rate 88 80 Pulse Rate [Monitor] Respiratory Rate 16 Blood Pressure Pulse Oximetry 94 Oxygen Delivery High Flow Therapy with Na Oxygen Flow Rate 2 Fraction of Inspired Oxygen 09/02/24 02:42 09/02/24 03:21 09/02/24 03:39 Temperature 36.6 C Pulse Rate 80 84 Pulse Rate [Monitor] Respiratory Rate 16 16 Blood Pressure 151/81 H Pulse Oximetry 93 91 Oxygen Delivery High Flow Therapy with Na Oxygen Flow Rate 3 Fraction of Inspired Oxygen 09/02/24 04:00 09/02/24 05:58 09/02/24 07:30 Temperature Pulse Rate 92 101 H 82 Pulse Rate [Monitor] Respiratory Rate 16 Blood Pressure Pulse Oximetry Oxygen Delivery Oxygen Flow Rate Fraction of Inspired Oxygen 09/02/24 07:30 09/02/24 07:40 09/02/24 08:00 Temperature 36.6 C Pulse Rate 82 85 80 Pulse Rate [Monitor] Respiratory Rate 20 16 18 Blood Pressure 120/66 Pulse Oximetry 95 95 Oxygen Delivery Nasal Cannula Oxygen Flow Rate 3 Fraction of Inspired Oxygen 32 09/02/24 08:00 Temperature Pulse Rate Pulse Rate [Monitor] Respiratory Rate Blood Pressure Pulse Oximetry 95 Oxygen Delivery Nasal Cannula Oxygen Flow Rate 3 Fraction of Inspired Oxygen Intake/Output Intake/Output: Intake & Output 08/30/24 08/31/24 09/01/24 09/02/24 23:59 23:59 23:59 23:59 Intake Total 650 1700 1265 770 Output Total 8575 2775 3750 1150 [facility] -7925 -1075 -2485 -380 Meds/Results Medications: Active Medications Generic Name Dose Route Start Last Admin Trade Name Freq PRN Reason Stop Dose Admin Acetaminophen 650 mg 08/26/24 06:26 09/02/24 09:04 Acetaminophen 325 Mg Tablet PO 650 mg Q4H PRN Administration Mild Pain (1-3) or Fever Al Hydrox/Mg Hydrox/Simethicone 30 ml 08/26/24 06:26 Mag Hydrox/Al Hydrox/Simeth 30 Ml Udc PO QID PRN Dyspepsia Amlodipine Besylate 10 mg 08/26/24 09:00 08/28/24 08:48 Amlodipine Besylate 10 Mg Tablet PO Not Given DAILY PA Bisacodyl 5 mg 08/26/24 06:26 08/30/24 17:22 Bisacodyl 5 Mg Tablet Ec PO 5 mg DAILY PRN Administration Constipation Dextrose 12.5 gm 09/01/24 12:12 Dextrose 50% 25 Gm/50 Ml Syringe IV PUSH PRN PRN Hypoglycemia Protocol Diltiazem HCl 30 mg/ Diltiazem 90 mg 08/27/24 10:15 09/02/24 05:36 HCl 60 mg PO 90 mg Q8HR PA Administration Fish Oil 2 gm 08/26/24 09:00 09/02/24 09:00 [place] 3 Polyunsat Fatty Acids 1 Gm Cap PO 2 gm BID PA Administration Folic Acid 1 mg 08/29/24 12:55 09/02/24 09:00 Folic Acid 1 Mg Tablet PO 1 mg DAILY PA Administration Furosemide 20 mg 08/26/24 09:00 08/27/24 08:48 Furosemide 20 Mg Tablet PO 20 mg DAILY PA Administration Furosemide 20 mg 09/01/24 09:00 09/02/24 08:59 Furosemide Inj 40 Mg/4 Ml Vial IV PUSH 20 mg BID PA Administration Glucagon 1 mg 09/01/24 12:12 Glucagon For Inj 1 Mg Vial IM PRN PRN Hypoglycemia Protocol Glucose 15 gm 09/01/24 12:12 Glucose Oral Gel 15 Gm Of Glucse In 37.5 Gm Tube PO PRN PRN Hypoglycemia Protocol Guaifenesin 1,200 mg 08/30/24 21:00 09/02/24 09:00 Guaifenesin 12 Hr 600 Mg Tabcr PO 1,200 mg Q12HR PA Administration Hydrochlorothiazide 25 mg 08/26/24 09:00 08/27/24 08:48 Hydrochlorothiazide 25 Mg Tablet PO 25 mg DAILY PA Administration Dextrose 1,000 mls @ 100 mls/hr 09/01/24 12:12 Dextrose 5% 1,000 Ml IVPB PRN PRN Hypoglycemia Protocol Insulin Aspart 1 - 3 units 09/01/24 21:00 09/01/24 21:34 Insulin Aspart (*Bkc) 100 Units/Ml SUB-Q Not Given HS PA Protocol Insulin Aspart 3 - 6 units 09/01/24 12:19 09/02/24 08:58 Insulin Aspart (*Bkc) 100 Units/Ml SUB-Q Not Given TIDWM [facility] Protocol Irbesartan 150 mg 08/26/24 09:00 08/28/24 08:48 Irbesartan 150 Mg Tablet PO Not Given DAILY PA Lorazepam 2 mg 08/26/24 21:53 09/01/24 14:32 Lorazepam Inj (*Crx) 2 Mg/Ml Vial IV PUSH 2 mg Q2H PRN Administration CIWA > 15 Lorazepam 2 mg 08/26/24 21:53 09/02/24 05:46 Lorazepam Inj (*Crx) 2 Mg/Ml Vial IV PUSH 2 mg Q4H PRN Administration CIWA 8-15 Lovastatin 40 mg 08/26/24 21:00 09/01/24 21:11 Lovastatin 20 Mg Tablet PO 40 mg HS PA Administration Magnesium Oxide 400 mg 08/26/24 09:00 09/02/24 09:00 Magnesium Oxide 400 Mg Tablet PO 400 mg DAILY PA Administration Methylprednisolone Sodium Succinate 40 mg 08/30/24 14:00 09/02/24 05:35 Methylprednisolone Sod Succ 40 Mg Vial IV PUSH 40 mg Q8HR AP Administration Multivitamins Therapeutic 1 tablet 08/26/24 09:00 09/02/24 09:00 Multivitamins Therapeutic Tab (*Bkc) PO 1 tablet DAILY PA Administration Pantoprazole Sodium 40 mg 08/30/24 21:00 09/02/24 08:59 Pantoprazole Sodium Iv 40 Mg Vial IV PUSH 40 mg Q12HR PA Administration Potassium Chloride 20 meq 09/02/24 12:03 Potassium Chloride 20 Meq Er Tablet PO 09/02/24 12:04 ONCE ONE Propranolol HCl 120 mg 08/26/24 21:00 09/01/24 21:10 Propranolol Hcl 60 Mg Capsule Cr PO 120 mg HS PA Administration Sucralfate 1 gm 08/26/24 11:30 09/02/24 10:40 Sucralfate 1 Gm Tablet PO 1 gm ACHS PA Administration Thiamine HCl 100 mg 08/29/24 12:55 09/02/24 09:00 Thiamine Hcl 100 Mg Tablet PO 100 mg QAM PA Administration Radiology Results: ITS Impressions Renal Ultrasound 08/28/24 09:25 IMPRESSION: No hydronephrosis or renal calculi. Findings suggesting medical renal disease. Abdomen Ultrasound 08/28/24 11:48 IMPRESSION: Limited evaluation of the pancreas secondary to overlying bowel gas. Trace perihepatic free fluid. Phasic flow within the portal vein. Hepatomegaly. Single static measurement of the common bile duct is 4 mm, a significant difference from recent CT examination for which MRCP (may be performed without intravenous contrast) is recommended for confirmation. Chest CT 08/29/24 18:13 IMPRESSION: 1. Pneumonia involving the right upper and lower lobe. 2. Bilateral pleural effusion more on the right side with adjacent atelectasis versus pneumonia. 3. Tracheobronchomalacia. 4. Cardiomegaly with congestive haley. Venous Doppler Study 08/30/24 13:26 IMPRESSION: 1. No deep venous thrombosis. Modified Barium Swallow 08/30/24 16:58 IMPRESSION: Pharyngeal dysphagia with laryngeal penetration without aspiration. Please correlate with speech pathologist findings and specific feeding recommendations. Chest X-Ray 09/01/24 06:34 Impression: Mild bibasilar pulmonary edema changes with minimal right pleural effusion. Labs Labs: Laboratory Results - last 24 hr 09/01/24 09/01/24 09/01/24 11:55 16:27 21:22 WBC RBC Hgb Hct MCV MCH MCHC RDW Plt Count MPV Immature Gran % (Auto) Neut % (Auto) Lymph % (Auto) [place] % (Auto) Eos % (Auto) Baso % (Auto) Lymph # (Auto) [place] # (Auto) Eos # (Auto) Baso # (Auto) Abs Immat Gran (auto) Absolute Neuts (auto) Absolute Nucleated RBC Band Neutrophils % Nucleated RBC % Platelet Estimate Anisocytosis Macrocytosis Schistocytes Sodium Potassium Chloride Carbon Dioxide Anion Gap BUN Creatinine Estim Creat Clear Calc Estimated GFR Glucose POC Capillary Glucose 229 H 105 132 H Calcium Phosphorus Magnesium Total Bilirubin AST ALT Alkaline Phosphatase NT-Pro-B Natriuret Pep Total Protein Albumin Procalcitonin 09/02/24 09/02/24 09/02/24 04:45 04:49 10:47 WBC 8.4 RBC 3.03 L Hgb 10.1 L Hct 31.7 L MCV 104.6 H MCH 33.3 MCHC 31.9 L RDW 13.4 Plt Count 150 MPV 9.8 Immature Gran % (Auto) 1.0 H Neut % (Auto) 86.4 H Lymph % (Auto) 4.3 L [place] % (Auto) 8.3 Eos % (Auto) 0.0 Baso % (Auto) 0.0 L Lymph # (Auto) 0.36 L [place] # (Auto) 0.7 H Eos # (Auto) 0.0 Baso # (Auto) 0.0 Abs Immat Gran (auto) 0.08 H Absolute Neuts (auto) 7.3 H Absolute Nucleated RBC 0.000 Band Neutrophils % Not Reportable Nucleated RBC % 0.0 Platelet Estimate Adequate Anisocytosis 1+ Macrocytosis 1+ Schistocytes None seen Sodium 137 Potassium 3.1 L Chloride 93 L Carbon Dioxide 34 H Anion Gap 10 BUN 45 H Creatinine 1.61 H Estim Creat Clear Calc 52 Estimated GFR 43 L Glucose 161 H POC Capillary Glucose 142 H Calcium 9.2 Phosphorus 4.1 Magnesium 1.5 L Total Bilirubin 0.9 AST 56 ALT 66 H Alkaline Phosphatase 99 NT-Pro-B Natriuret Pep 1850 H Total Protein 7.8 Albumin 3.8 Procalcitonin 0.1
[2024-09-02] MEDS: POTASSIUM CHLORIDE 20 MEQ ER TABLET PO (13:10)
[2024-09-02 14:41] LABS: Alveolar/Arterial O2 Gradient 41.9 mmHg; Fractional Inspired Oxygen 24 %; HCO3 ABG 33.1 mEq/l (22.0-26.0); Oxygen Content ABG 15.2 %vol (16.0-22.0); Oxygen Saturation ABG 95.1 % (95.0-100.0); PCO2 ABG 47.9 mmHg (35.0-45.0); PO2 ABG 72.2 mmHg (80.0-100.0); PO2 FiO2 Ratio Arterial Blood 3.01 %
[2024-09-02 14:44] LABS: Liters per Minute 1.0 LPM; Modified Allen's Test Pass; Site Drawn RIGHT RADIAL
--- NOTE | 2024-09-02 15:17 | PM.IMPN ---
Progress Note: A&P Assessment and Plan (1) Acute on chronic diastolic heart failure: Code(s): I50.33 - Acute on chronic diastolic (congestive) heart failure Status: Acute (2) Elevated troponin: Code(s): R79.89 - Other specified abnormal findings of blood chemistry Status: Inactive (3) Demand ischemia: Code(s): I24.89 - Other forms of acute ischemic heart disease Status: Inactive (4) Atrial fibrillation with rapid ventricular response: Code(s): I48.91 - Unspecified atrial fibrillation Status: Inactive (5) CHF (congestive heart failure): Qualifiers: Heart failure chronicity: acute Heart failure type: unspecified Qualified Code(s): I50.9 - Heart failure, unspecified Code(s): I50.9 - Heart failure, unspecified Status: Inactive (6) Alcohol abuse: Code(s): F10.10 - Alcohol abuse, uncomplicated Status: Acute Plan Afib with RVR ECHO showed normal EF 60-65% Continue cardizem 90mg Q8, discharge on 240mg daily Patient not on Anticoagulation due to PUD; LAAO outpatient cardiology following Acute hypoxemic respiratory failure, resolved likely from Pneumonia vs COPD Completed abx Pulmonology consulted s/p BiPAP and Vapotherm For nighttime oximetry tonight monitor Pulmonology following Pneumonia CXR reviewed Completed Zosyn and Doxycycline MRSA negative Monitor cultures Elevated troponin Likely demand ischemia PATRICA Cr 4.2, baseline normal Cr 1.61 today US renal no obstruction Nephrology following Hematuria CT AP ordered and urology consulted Alcoholic hepatitis with possible Liver cirrhosis Per Gi eval patient qualifies steroid Started prednisone ALT 162/AST 343 down to 66/56 respectively GI following Alcohol withdrawal, reoslved LAD / dicscontinue CIWA continue multivitamin monitor Hematuria, resolved urology evaluated and noted it was likely from trauma improving Urology following GI evaluated and noted no significant bile duct dilation, no MRCP recommended DVT prophylaxis on SCDs, if no hematuria by tomorrow, will start Sq heparin Awaiting placement Subjective Date/time seen: 09/02/24 15:17 Interval history: Patient off oxygen and comfortable at bedside Review of Systems Review of Systems: As per HPI Exam Narrative: Morbidly obese Patient is comfortable, NAD HEENT: eyes are clear and none icteric LUNGS: Irregularly irregular tachy HEART: RR S1S2 ABD: BS+, Soft and nontender Lower extremities: no edema SKIN: nonjaundiced Neuro: grossly intact. Objective Data Vital Signs Vital Signs: Vital Signs - 24 hr 09/01/24 15:50 09/01/24 16:00 09/01/24 16:00 Temperature Pulse Rate 67 70 Pulse Rate [Monitor] Respiratory Rate 16 Blood Pressure Pulse Oximetry 99 Oxygen Delivery High Flow Therapy with Na Oxygen Flow Rate 45 Fraction of Inspired Oxygen 60 09/01/24 16:00 09/01/24 16:28 09/01/24 18:00 Temperature 98 F Pulse Rate 61 67 84 Pulse Rate [Monitor] Respiratory Rate 18 16 Blood Pressure 129/93 H Pulse Oximetry 98 99 Oxygen Delivery High Flow Nasal Cannula Oxygen Flow Rate 40 Fraction of Inspired Oxygen 40 09/01/24 18:02 09/01/24 18:20 09/01/24 19:26 Temperature 98.0 F Pulse Rate 86 Pulse Rate [Monitor] Respiratory Rate 17 Blood Pressure 122/58 L Pulse Oximetry 99 98 99 Oxygen Delivery High Flow Nasal Cannula High Flow Nasal Cannula Oxygen Flow Rate 5 3 Fraction of Inspired Oxygen 09/01/24 20:00 09/01/24 20:00 09/01/24 20:00 Temperature Pulse Rate 93 Pulse Rate [Monitor] 104 H Respiratory Rate Blood Pressure Pulse Oximetry 99 Oxygen Delivery High Flow Therapy with Na Oxygen Flow Rate 2 Fraction of Inspired Oxygen 09/01/24 20:20 09/01/24 20:21 09/01/24 20:36 Temperature Pulse Rate 80 80 Pulse Rate [Monitor] Respiratory Rate 16 16 Blood Pressure Pulse Oximetry 99 Oxygen Delivery High Flow Nasal Cannula Oxygen Flow Rate 3 Fraction of Inspired Oxygen 09/01/24 21:10 09/01/24 22:00 09/01/24 23:46 Temperature 98.2 F Pulse Rate 104 H 82 82 Pulse Rate [Monitor] Respiratory Rate 17 Blood Pressure 124/73 Pulse Oximetry 94 Oxygen Delivery Oxygen Flow Rate Fraction of Inspired Oxygen 09/02/24 00:00 09/02/24 00:00 09/02/24 02:00 Temperature Pulse Rate 91 88 Pulse Rate [Monitor] Respiratory Rate Blood Pressure Pulse Oximetry 94 Oxygen Delivery High Flow Therapy with Na Oxygen Flow Rate 2 Fraction of Inspired Oxygen 09/02/24 02:28 09/02/24 02:42 09/02/24 03:21 Temperature 97.8 F Pulse Rate 80 80 84 Pulse Rate [Monitor] Respiratory Rate 16 16 16 Blood Pressure 151/81 H Pulse Oximetry 93 Oxygen Delivery Oxygen Flow Rate Fraction of Inspired Oxygen 09/02/24 03:39 09/02/24 04:00 09/02/24 05:58 Temperature Pulse Rate 92 101 H Pulse Rate [Monitor] Respiratory Rate Blood Pressure Pulse Oximetry 91 Oxygen Delivery High Flow Therapy with Na Oxygen Flow Rate 3 Fraction of Inspired Oxygen 09/02/24 07:30 09/02/24 07:30 09/02/24 07:40 Temperature Pulse Rate 82 82 85 Pulse Rate [Monitor] Respiratory Rate 16 20 16 Blood Pressure Pulse Oximetry 95 Oxygen Delivery Nasal Cannula Oxygen Flow Rate 3 Fraction of Inspired Oxygen 32 09/02/24 08:00 09/02/24 08:00 09/02/24 08:00 Temperature 97.8 F Pulse Rate 80 91 Pulse Rate [Monitor] Respiratory Rate 18 Blood Pressure 120/66 Pulse Oximetry 95 95 Oxygen Delivery Nasal Cannula Oxygen Flow Rate 3 Fraction of Inspired Oxygen 09/02/24 10:00 09/02/24 12:00 Temperature Pulse Rate 81 94 Pulse Rate [Monitor] Respiratory Rate Blood Pressure Pulse Oximetry Oxygen Delivery Oxygen Flow Rate Fraction of Inspired Oxygen Intake/Output Intake/Output: Intake & Output 08/30/24 08/31/24 09/01/24 09/02/24 23:59 23:59 23:59 23:59 Intake Total 650 1700 1265 1060 Output Total 8575 2775 3750 1150 [facility] -[id number] -[phone] -90 Meds/Results Medications: Active Medications Generic Name Dose Route Start Last Admin Trade Name Freq PRN Reason Stop Dose Admin Acetaminophen 650 mg 08/26/24 06:26 09/02/24 13:47 Acetaminophen 325 Mg Tablet PO 650 mg Q4H PRN Administration Mild Pain (1-3) or Fever Al Hydrox/Mg Hydrox/Simethicone 30 ml 08/26/24 06:26 Mag Hydrox/Al Hydrox/Simeth 30 Ml Udc PO QID PRN Dyspepsia Amlodipine Besylate 10 mg 08/26/24 09:00 08/28/24 08:48 Amlodipine Besylate 10 Mg Tablet PO Not Given DAILY PA Bisacodyl 5 mg 08/26/24 06:26 08/30/24 17:22 Bisacodyl 5 Mg Tablet Ec PO 5 mg DAILY PRN Administration Constipation Dextrose 12.5 gm 09/01/24 12:12 Dextrose 50% 25 Gm/50 Ml Syringe IV PUSH PRN PRN Hypoglycemia Protocol Diltiazem HCl 30 mg/ Diltiazem 90 mg 08/27/24 10:15 09/02/24 13:10 HCl 60 mg PO 90 mg Q8HR PA Administration Empagliflozin 10 mg 09/03/24 09:00 Empagliflozin 10 Mg Tablet PO DAILY PA Fish Oil 2 gm 08/26/24 09:00 09/02/24 09:00 [place] 3 Polyunsat Fatty Acids 1 Gm Cap PO 2 gm BID PA Administration Folic Acid 1 mg 08/29/24 12:55 09/02/24 09:00 Folic Acid 1 Mg Tablet PO 1 mg DAILY PA Administration Furosemide 20 mg 08/26/24 09:00 08/27/24 08:48 Furosemide 20 Mg Tablet PO 20 mg DAILY PA Administration Furosemide 20 mg 09/01/24 09:00 09/02/24 08:59 Furosemide Inj 40 Mg/4 Ml Vial IV PUSH 20 mg BID PA Administration Glucagon 1 mg 09/01/24 12:12 Glucagon For Inj 1 Mg Vial IM PRN PRN Hypoglycemia Protocol Glucose 15 gm 09/01/24 12:12 Glucose Oral Gel 15 Gm Of Glucse In 37.5 Gm Tube PO PRN PRN Hypoglycemia Protocol Guaifenesin 1,200 mg 08/30/24 21:00 09/02/24 09:00 Guaifenesin 12 Hr 600 Mg Tabcr PO 1,200 mg Q12HR PA Administration Dextrose 1,000 mls @ 100 mls/hr 09/01/24 12:12 Dextrose 5% 1,000 Ml IVPB PRN PRN Hypoglycemia Protocol Insulin Aspart 1 - 3 units 09/01/24 21:00 09/01/24 21:34 Insulin Aspart (*Bkc) 100 Units/Ml SUB-Q Not Given HS [facility] Protocol Insulin Aspart 3 - 6 units 09/01/24 12:19 09/02/24 10:54 Insulin Aspart (*Bkc) 100 Units/Ml SUB-Q Not Given TIDWM [facility] Protocol Irbesartan 150 mg 08/26/24 09:00 08/28/24 08:48 Irbesartan 150 Mg Tablet PO Not Given DAILY PA Lorazepam 2 mg 08/26/24 21:53 09/01/24 14:32 Lorazepam Inj (*Crx) 2 Mg/Ml Vial IV PUSH 2 mg Q2H PRN Administration CIWA > 15 Lorazepam 2 mg 08/26/24 21:53 09/02/24 05:46 Lorazepam Inj (*Crx) 2 Mg/Ml Vial IV PUSH 2 mg Q4H PRN Administration CIWA 8-15 Lovastatin 40 mg 08/26/24 21:00 09/01/24 21:11 Lovastatin 20 Mg Tablet PO 40 mg HS PA Administration Magnesium Oxide 400 mg 08/26/24 09:00 09/02/24 09:00 Magnesium Oxide 400 Mg Tablet PO 400 mg DAILY PA Administration Methylprednisolone Sodium Succinate 40 mg 08/30/24 14:00 09/02/24 13:10 Methylprednisolone Sod Succ 40 Mg Vial IV PUSH 40 mg Q8HR PA Administration Multivitamins Therapeutic 1 tablet 08/26/24 09:00 09/02/24 09:00 Multivitamins Therapeutic Tab (*Bkc) PO 1 tablet DAILY PA Administration Pantoprazole Sodium 40 mg 08/30/24 21:00 09/02/24 08:59 Pantoprazole Sodium Iv 40 Mg Vial IV PUSH 40 mg Q12HR PA Administration Propranolol HCl 120 mg 08/26/24 21:00 09/01/24 21:10 Propranolol Hcl 60 Mg Capsule Cr PO 120 mg HS PA Administration Sucralfate 1 gm 08/26/24 11:30 09/02/24 10:40 Sucralfate 1 Gm Tablet PO 1 gm ACHS PA Administration Thiamine HCl 100 mg 08/29/24 12:55 09/02/24 09:00 Thiamine Hcl 100 Mg Tablet PO 100 mg QAM PA Administration Radiology Results: ITS Impressions Renal Ultrasound 08/28/24 09:25 IMPRESSION: No hydronephrosis or renal calculi. Findings suggesting medical renal disease. Abdomen Ultrasound 08/28/24 11:48 IMPRESSION: Limited evaluation of the pancreas secondary to overlying bowel gas. Trace perihepatic free fluid. Phasic flow within the portal vein. Hepatomegaly. Single static measurement of the common bile duct is 4 mm, a significant difference from recent CT examination for which MRCP (may be performed without intravenous contrast) is recommended for confirmation. Chest CT 08/29/24 18:13 IMPRESSION: 1. Pneumonia involving the right upper and lower lobe. 2. Bilateral pleural effusion more on the right side with adjacent atelectasis versus pneumonia. 3. Tracheobronchomalacia. 4. Cardiomegaly with congestive haley. Venous Doppler Study 08/30/24 13:26 IMPRESSION: 1. No deep venous thrombosis. Modified Barium Swallow 08/30/24 16:58 IMPRESSION: Pharyngeal dysphagia with laryngeal penetration without aspiration. Please correlate with speech pathologist findings and specific feeding recommendations. Chest X-Ray 09/01/24 06:34 Impression: Mild bibasilar pulmonary edema changes with minimal right pleural effusion. Labs Labs: Laboratory Results - last 24 hr 09/01/24 09/01/24 09/02/24 16:27 21:22 04:45 WBC RBC Hgb Hct MCV MCH MCHC RDW Plt Count MPV Immature Gran % (Auto) Neut % (Auto) Lymph % (Auto) Bath % (Auto) Eos % (Auto) Baso % (Auto) Lymph # (Auto) Bath # (Auto) Eos # (Auto) Baso # (Auto) Abs Immat Gran (auto) Absolute Neuts (auto) Absolute Nucleated RBC Band Neutrophils % Nucleated RBC % Platelet Estimate Anisocytosis Macrocytosis Schistocytes Puncture Site ABG pH ABG pCO2 ABG pO2 ABG PO2/FiO2 Ratio ABG HCO3 ABG O2 Saturation ABG O2 Content ABG Base Excess A-a Gradient Oxyhemoglobin Total Hemoglobin O2 Delivery Device O2 Liters/Min FiO2 Sodium Potassium Chloride Carbon Dioxide Anion Gap BUN Creatinine Estim Creat Clear Calc Estimated GFR Glucose POC Capillary Glucose 105 132 H Calcium Phosphorus Magnesium Total Bilirubin AST ALT Alkaline Phosphatase NT-Pro-B Natriuret Pep 1850 H Total Protein Albumin Procalcitonin 0.1 09/02/24 09/02/24 09/02/24 04:49 10:47 14:30 WBC 8.4 RBC 3.03 L Hgb 10.1 L Hct 31.7 L MCV 104.6 H MCH 33.3 MCHC 31.9 L RDW 13.4 Plt Count 150 MPV 9.8 Immature Gran % (Auto) 1.0 H Neut % (Auto) 86.4 H Lymph % (Auto) 4.3 L Bath % (Auto) 8.3 Eos % (Auto) 0.0 Baso % (Auto) 0.0 L Lymph # (Auto) 0.36 L Bath # (Auto) 0.7 H Eos # (Auto) 0.0 Baso # (Auto) 0.0 Abs Immat Gran (auto) 0.08 H Absolute Neuts (auto) 7.3 H Absolute Nucleated RBC 0.000 Band Neutrophils % Not Reportable Nucleated RBC % 0.0 Platelet Estimate Adequate Anisocytosis 1+ Macrocytosis 1+ Schistocytes None seen Puncture Site Right radial ABG pH 7.457 H ABG pCO2 47.9 H ABG pO2 72.2 L ABG PO2/FiO2 Ratio 3.01 ABG HCO3 33.1 H ABG O2 Saturation 95.1 ABG O2 Content 15.2 L ABG Base Excess 8.1 A-a Gradient 41.9 Oxyhemoglobin 93.5 Total Hemoglobin 11.5 L O2 Delivery Device Nasal cannula O2 Liters/Min 1.0 FiO2 24 Sodium 137 Potassium 3.1 L Chloride 93 L Carbon Dioxide 34 H Anion Gap 10 BUN 45 H Creatinine 1.61 H Estim Creat Clear Calc 52 Estimated GFR 43 L Glucose 161 H POC Capillary Glucose 142 H Calcium 9.2 Phosphorus 4.1 Magnesium 1.5 L Total Bilirubin 0.9 AST 56 ALT 66 H Alkaline Phosphatase 99 NT-Pro-B Natriuret Pep Total Protein 7.8 Albumin 3.8 Procalcitonin Quality VTE Prophylaxis VTE prophylaxis: mechanical ordered
[2024-09-02] MEDS: MAGNESIUM SULF 2 GM/WATER 50ML 2 GM/50 ML BAG IVPB (16:04)
[2024-09-02] MEDS: LOVASTATIN 20 MG TABLET 40 MG PO (20:27)
[2024-09-02] MEDS: PROPRANOLOL HCL 60 MG CAPSULE CR 120 MG PO (20:28)
[2024-09-03] VITALS (17 sets, daily range): BP systolic 110–127; BP diastolic 54–78; PULSE 65–99; RESP 12–18; TEMP 36–36.8; O2SAT 91–98
--- NOTE | 2024-09-03 00:23 | PCRCNOTE ---
Patient is on an overnight oximetry study on room air. At 23:39 the RN called and stated his O2 sat was only 84%. We agreed to put him on 1L
[2024-09-03 05:19] LABS: Hematocrit 32.3 % (42.0-52.0); Hemoglobin 10.3 g/dL (14.0-18.0); Immature Granulocyte Percent A 1.0 % (0-0.5); Lymphocytes Absolute Auto 0.38 K/mm3 (0.9-3.2); Mean Corpuscular HGB Conc 31.9 g/dl (32-36); Mean Corpuscular Hemoglobin 33.1 pg (26-34); Mean Corpuscular Volume 103.9 fl (80-100); Nucleated Red Blood Cells Absolute Auto 0.000 K/mm3 (0.0-0.012); Nucleated Red Blood Cells Perc 0.0 % (0.0-0.2); Platelet Count Result 143 k/mm3 (150-375); Red Blood Count 3.11 M/mm3 (4.6-6.20); White Blood Count 6.2 K/mm3 (4.5-10.0)
[2024-09-03] MEDS: dilTIAZem HCL TAB 30 MG, dilTIAZem HCL TAB 60 MG 90 MG PO ×3 (05:41→21:10)
[2024-09-03] MEDS: SUCRALFATE 1 GM TABLET PO ×4 (05:41→21:10)
[2024-09-03 06:35] LABS: Alanine Aminotransferase 57 U/L (6-50); Albumin Level 3.6 g/dL (3.5-5.1); Alkaline Phosphatase 75 U/L (38-126); Anion Gap 7 mmol/L (4-12); Aspartate Amino Transferase 48 U/L (17-59); Bilirubin,Total 0.9 mg/dL (0.2-1.3); Blood Urea Nitrogen 44 mg/dL (9-20); Calcium 9.1 mg/dL (8.4-10.2); Carbon Dioxide 33 mmol/L (22-30); Chloride 95 mmol/L (98-107); Estimated CRCL calculation 67 ml/min; Estimated Glomerular Filt Rate 60; Glucose 142 mg/dL (65-110); Magnesium 1.7 mg/dL (1.6-2.3); Potassium 3.4 mmol/L (3.4-5.0); Sodium 135 mmol/L (137-145); Total Protein 7.6 g/dL (6.3-8.2)
[2024-09-03] MEDS: MAGNESIUM SULF 2 GM/WATER 50ML 2 GM/50 ML BAG IVPB (08:52)
[2024-09-03] MEDS: THIAMINE HCL 100 MG TABLET PO (08:52)
[2024-09-03] MEDS: FOLIC ACID 1 MG TABLET PO (08:53)
[2024-09-03] MEDS: MULTIVITAMINS THERAPEUTIC TAB (*BKC) 1 TABLET PO (08:53)
[2024-09-03] MEDS: guaiFENesin 12 HR 600 MG TABCR 1200 MG PO ×2 (08:53→21:09)
[2024-09-03] MEDS: MAGNESIUM OXIDE 400 MG TABLET PO (08:53)
[2024-09-03] MEDS: OMEGA 3 POLYUNSAT FATTY ACIDS 1 GM CAP 2 GM PO ×2 (08:53→16:36)
[2024-09-03] MEDS: EMPAGLIFLOZIN 10 MG TABLET PO (08:54)
[2024-09-03] MEDS: FUROSEMIDE INJ 40 MG/4 ML VIAL 20 MG IV PUSH ×2 (08:54→16:36)
[2024-09-03] MEDS: PANTOPRAZOLE SODIUM IV 40 MG VIAL IV PUSH ×2 (08:54→21:10)
[2024-09-03] MEDS: POTASSIUM CHLORIDE 20 MEQ PACKET (FOR LIQUID) 40 MEQ PO (08:54)
--- NOTE | 2024-09-03 10:28 | P.PNPL_ITS ---
Progress Note: A&P Assessment and Plan (1) Respiratory failure with hypoxia and hypercapnia: Code(s): J96.91 - Respiratory failure, unspecified with hypoxia; J96.92 - Respiratory failure, unspecified with hypercapnia Status: Acute Assessment and Plan: Patient with a history of tobacco use but no formal diagnosis of COPD. I have no PFTs. At baseline he is on no oxygen at home. He has no bullous emphysema on his CT scan. Patient presented on 08/25 with shortness of breath, fall in AFib RVR with a CT scan that showed no PE and clear lung adair. He developed acute renal failure and his weight today is 128 kilos with an admission weight of 117.9 kg and he has anasarca. His CT scan on 08/29/2024 shows right upper lobe and right lower lobe infiltrates with bilateral PEs in his right greater than left. Chest x-ray on 08/30/2024 shows dense consolidation right upper lobe and a sail sign with shift of the mediastinum to the right consistent with right upper and lower lobe atelectasis/ collapse. Etiology of patient's hypoxemic and hypercarbic respiratory failure includes: Mucus plugging, pulmonary edema, infection, Benzodiazepine use to prevent DTs.. Plan: Continue BiPAP p.r.n. during the day and scheduled at night. I will increase the respiratory rate from 12 to 18 given his blood gases 7.36/48/70. Goal saturation 90-94%. Adjust oxygen accordingly and currently is on 10 L nasal cannula with saturations 92%. regarding infection, patient is on doxycycline day 5 and Zosyn day 4 and I agree with this antibiotics at this time. procalcitonin is 0.2. I will send an MRSA nasal swab and if this is positive patient should be started on vancomycin and Zosyn changed to meropenem. I will send COVID, RSV, influenza RT PCR, urine for Legionella, urine for pneumococcal, mycoplasma IgM and respiratory pathogen panel looking for etiologies for infection. regarding possible mucus plugging I will start guaifenesin 1200 mg p.o. b.i.d., nebulized ipratropium and levalbuterol q.6 hours, nebulized Mucomyst q.12 hours, Cornet flutter valve, EzPAP treatment. Regarding pulmonary edema his BNP is 4 4460, he has anasarca and his weight is increased 10.1 kg since admission. his renal failure is improving and he is being diuresed with Lasix 40 IV b.i.d.. He does not need steroids from a pulmonary perspective. Inpatient pulmonary consult services will resume on 09/02/2024, call with questions. 09/02/24: Overall the patient tells me he is breathing normal. He denies rest shortness of breath. He has occasional phlegm with no hemoptysis. He is afebrile. He has been off BiPAP since 08/31. Currently he is on 3 L with saturations 95-97%. I decreased him to room air and his saturations were 90%. White blood cell count 8.4, creatinine 1.61, Procalcitonin is decreased from 0.2 on 08/30/2024 to 0.1 today. BNP has decreased from 4460 on 08/30/2024 to 1850 today. yesterday he was -2.4 L, cumulative he is -8.8 L since admission. His weight today is 124. Plan: Patient has received a total of 8 days of doxycycline and 7 days of Zosyn. His chest x-ray is improved, he has no leukocytosis and his procalcitonin is normal. He is afebrile. Will discontinue antibiotics today. Patient has no wheezing and no phlegm production. Will discontinue ipratropium, levalbuterol and Mucomyst nebulizers. Continue guaifenesin 1200 mg p.o. b.i.d.. Goal saturation 90-94%. I will perform an overnight oximetry on room air to assess for nocturnal hypoxia. Out of bed to chair and PT. Later in the day patient had a blood gas on 1 L nasal cannula with pH of 7.46 /48/72 09/03/24: patient tells me he is breathing normal. States his cough and phlegm are at his baseline. He is afebrile. White blood cell count 6.2, creatinine 1.22. When I enter the room he was on 1 L nasal cannula saturation 97%. I decreased him to room air and after 12 minutes his saturations were 94%. Yesterday is from -500 mL and cumulative he has diuresed 10 L since admission. patient had an overnight oximetry on room air with recording duration of 6 hours and 59 minutes. Average saturation 90%. Low saturation 72%. Time with saturation less than or equal to 88% was 118 minutes. Oxygen desaturation index 13.6. Patient is scheduled to be discharged to [facility] bed. From a pulmonary perspective Patient is ready for discharge on these pulmonary medications: Guaifenesin 1200 mg p.o. q.12 hours p.r.n. congestion Oxygen at rest and with activity per [facility] facility protocol Oxygen at night per [facility] facility protocol. Overnight oximetry on room air with hypoxemia and I recommend 2 L nasal cannula Discussed with Dr. Clemens. Will sign off. Call with questions Subjective Date/time seen: 09/03/24 10:28 Interval history: 08/30/2024: This is a new pulmonary consult for hypoxemic respiratory failure. 63-year-old with a history of AFib off of Eliquis because a peptic ulcer disease, neck surgery, alcohol use, cirrhosis. patient is currently on BiPAP. For he received Ativan this morning for alcohol withdrawal and does wake up and shows 2 fingers and wiggles toes. Patient presented to [facility] emergency department on 08/25/2024 with shortness of breath, a fall and AFib with RVR. Vital signs on presentation 108/71, heart rate 153, on 4 L nasal cannula saturations were 91%. White blood cell count 7.4, eosinophils 2%, creatinine 1.28, serum bicarbonate 25, BNP 438, troponin 0.106, 0.111, 0.124, chest x-ray with mild congestion D-dimer positive. CT angiogram of the chest showed no PE, no focal infiltrates or effusions and cirrhotic liver with small amount of perihepatic ascites. Patient was treated with IV diltiazem, IV Lasix and his weight was 117.9 kg. On 08/26 patient received Librium and Ativan, he is on 2 L with saturation 97%. Echocardiogram with EF 60 65% abnormal diastolic function mild tricuspid regurg with a PASP of 37 normal RV size and function normal right atrial size. On 08/27/2024 patient is on 2 L with saturations 90-100%. Creatinine was 2.82. Chest x-ray showed moderate pulmonary edema and later that night he was placed on CPAP 70%. Chest x-ray showed a right upper lobe infiltrate and he was started on Zosyn. On 08/28/2024 creatinine 4.60, required 6 L nasal cannula. 08/29/2024, creatinine 4.20, AFib was controlled. Diagnosed with alcoholic hepatitis. Chest x-ray with improved right upper lobe but continued congestion. Developed hematuria. CT scan of the chest shows right upper lobe infiltrate, right lower lobe infiltrate small effusions right greater than left, no bullous emphysema. 08/30/2024: Patient is currently in the room on BiPAP set rate of 12, breathing 14 times a minute, pressure 16/8, inspiratory time 1.0, rise of 3 and 80% FiO2 with an ABG of 7.36/48/70. He is afebrile. white blood cell count 7.5, creatinine 3.65, Chest x-ray shows dense consolidation right upper lobe, sail sign consistent with right lower lobe collapse with clear left lung and shift of the mediastinum to the right. I took him off the BiPAP and placed him on 10 L nasal cannula on after 12 minutes of saturations were 91%. He was able to cough but has a weak cough and was unable to expectorate any phlegm. 09/02/24: Overall the patient tells me he is breathing normal. He denies rest shortness of breath. He has occasional phlegm with no hemoptysis. He is afebrile. He has been off BiPAP since 08/31. Currently he is on 3 L with saturations 95-97%. I decreased him to room air and his saturations were 90%. White blood cell count 8.4, creatinine 1.61, Procalcitonin is decreased from 0.2 on 08/30/2024 to 0.1 today. BNP has decreased from 4460 on 08/30/2024 to 1850 today. Yesterday he was -2.4 L, cumulative he is -8.8 L since admission. His weight today is 124. Later in the day patient had a blood gas on 1 L nasal cannula with pH of 7.46/48/72 09/03/24: patient tells me he is breathing normal. States his cough and phlegm are at his baseline. He is afebrile. White blood cell count 6.2, creatinine 1.22. When I enter the room he was on 1 L nasal cannula saturation 97%. I decreased him to room air and after 12 minutes his saturations were 94%. Yesterday is from -500 mL and cumulative he has diuresed 10 L since admission. patient had an overnight oximetry on room air with recording duration of 6 hours and 59 minutes. Average saturation 90%. Low saturation 72%. Time with saturation less than or equal to 88% was 118 minutes. Oxygen desaturation index 13.6. Patient is scheduled to be discharged to [facility] bed. DATA: 08/29/24: CT diagnostic chest wo con Ordering provider: Fanta Nowak MD History: 63 years Male with . sob . Comparison: None. Technique: CT chest without IV contrast.Radiation reduction technique utilized. The dose-length product was 861.43 mGy-cm. FINDINGS: VISUALIZED THORACIC INLET: Normal. MEDIASTINUM: Aorta/coronary arteries: Mild atheromatous disease. Heart/other: The heart is slightly enlarged. Lymph nodes: No mediastinal or hilar adenopathy. Slight narrowing of the distal trachea. Severe narrowing of the main bronchi. LUNGS: Pneumonia seen in the right upper and lower lobe posteriorly. Right moderate pleural effusion. Minimal left pleural effusion with adjacent atelectasis versus pneumonia. No pulmonary nodules or masses. No pneumothorax. VISUALIZED UPPER ABDOMEN: Soft tissue density adjacent to the right lobe of the liver measuring 4.5 cm. Ultrasound evaluation advised. Benign calcifications of the spleen. Otherwise, the visualized upper abdomen is normal. MUSCULOSKELETAL: Soft tissues: The superficial soft tissues are normal. Bones: Age appropriate degenerative changes of the spine. IMPRESSION: 1. Pneumonia involving the right upper and lower lobe. 2. Bilateral pleural effusion more on the right side with adjacent atelectasis versus pneumonia. 3. Tracheobronchomalacia. 4. Cardiomegaly with congestive haley. 08/26/24: Clinical Indication: Pulmonary embolus CT Scan of the Chest with Contrast: Technique: Contiguous sections were acquired throughout the chest after intravenous administration of 100 cc of Omnipaque 350. Dose reduction technique was used on this scan by utilizing automated exposure control and iterative reconstruction technique. The dose-length product (DLP) was 794.23 mGy-cm. COMPARISON: 08/25/2024 at 10:50 PM Findings: There is no evidence of any significant mediastinal, hilar or axillary lymphadenopathy. There is no filling defect in the pulmonary arterial tree to suggest pulmonary embolus. There is no evidence of aortic dissection or aneurysm. There is no evidence of pleural or pericardial effusion. The lungs are clear. No pulmonary nodules or infiltrates are noted. Images through the upper abdomen reveal cirrhotic morphology of liver with small amount of perihepatic ascites. Impression: No evidence of pulmonary embolus, aortic dissection, or aortic aneurysm. Clear lungs. Cirrhotic liver with small amount of perihepatic ascites. 08/26/24: Summary 1. Left ventricular systolic function is normal, estimated at 60-65. 2. The left ventricular diastolic function is abnormal. 3. Left atrial chamber dimension is mildly enlarged. 4. There is mild mitral valve regurgitation. 5. There is mild tricuspid valve regurgitation. 6. Mild pulmonary hypertension, estimated pulmonary arterial systolic pressure is 37 mmHg. Left Ventricle Left ventricular chamber dimension is normal. Left ventricular systolic function is normal, estimated at 60-65. There is no increased left ventricular wall thickness. Left ventricular septal wall motion is normal. The left ventricular diastolic function is abnormal. Right Ventricle Right ventricular chamber dimension is normal. Right ventricular systolic function is normal. Right Atria Right atrial chamber dimension is normal. Review of Systems Constitutional: Constitutional: Reports no additional constitutional complaints Eyes: Eyes: Reports no additional eye complaints ENT: Reports system reviewed and no additional complaints, except as documented Cardiovascular: Cardiovascular: Reports no additional cardiovascular complaints Respiratory: Respiratory: Reports no additional respiratory complaints Gastrointestinal: Gastrointestinal: Reports no additional gastrointestinal complaints Musculoskeletal: Musculoskeletal: Reports no additional musculoskeletal complaints Neurologic: Reports system reviewed and no additional complaints, except as documented Psychiatric: Psychiatric: Reports no additional psychiatric complaints Endocrine: Endocrine: Reports no additional endocrine complaints Hematologic/Lymphatic: Hematologic/Lymphatic: Reports no additional hematologic/lymphatic complaints Allergic/Immunologic: Allergic/Immunologic: Reports no additional allergic/immunologic complaints Exam Const: General: cooperative and comfortable Orientation/consciousness: oriented to person, oriented to place and oriented to time Other: Obese HENMT: Head: normal to inspection Ears: hearing grossly normal bilaterally Eyes: General: appearance normal, both eyes and all related structures Neck: Neck: normal visual inspection Chest: Chest palpation & inspection: normal inspection of the chest Resp: Effort & Inspection: normal respiratory effort and able to speak in complete sentences Auscultation: no crackles, no rales, no rhonchi, no wheezes and diminished lung sounds Cardio: Jugular venous distension: no JVD GI: Inspection: normal to inspection Skin: General skin exam: normal color Neuro: General: oriented to person, oriented to place and oriented to time Other: shows 2 fingers and wiggle his toes to command. Extrem: General: normal to inspection Other: improved Anasarca Psych: Appearance: grossly normal Objective Data Vital Signs Vital Signs: Vital Signs - 24 hr 09/02/24 12:00 09/02/24 15:03 09/02/24 15:45 Temperature 36.3 C L Pulse Rate 94 80 Respiratory Rate 18 Blood Pressure 136/71 Pulse Oximetry 99 Oxygen Delivery Nasal Cannula Oxygen Flow Rate 3 09/02/24 16:00 09/02/24 19:54 09/02/24 20:00 Temperature 36.4 C L Pulse Rate 72 84 85 Respiratory Rate 18 Blood Pressure 136/75 Pulse Oximetry 84 L Oxygen Delivery Oxygen Flow Rate 09/02/24 20:00 09/02/24 20:28 09/02/24 22:12 Temperature Pulse Rate 84 76 Respiratory Rate Blood Pressure Pulse Oximetry 93 89 L Oxygen Delivery Room Air Room Air Oxygen Flow Rate 09/02/24 23:42 09/03/24 00:00 09/03/24 00:00 Temperature 36.8 C Pulse Rate 76 73 Respiratory Rate 18 Blood Pressure 127/78 Pulse Oximetry 86 L 98 Oxygen Delivery High Flow Nasal Cannula Oxygen Flow Rate 1 09/03/24 02:00 09/03/24 04:00 09/03/24 05:11 Temperature Pulse Rate 82 Respiratory Rate Blood Pressure Pulse Oximetry 94 91 Oxygen Delivery Room Air High Flow Nasal Cannula Oxygen Flow Rate 1 09/03/24 07:44 09/03/24 07:51 09/03/24 08:02 Temperature 36.5 C Pulse Rate 78 Respiratory Rate 16 Blood Pressure 120/69 Pulse Oximetry 95 94 Oxygen Delivery Nasal Cannula Oxygen Flow Rate 1 Intake/Output Intake/Output: Intake & Output 08/31/24 09/01/24 09/02/24 09/03/24 23:59 23:59 23:59 23:59 Intake Total 1700 1265 1850 365 Output Total 2524 6406 2350 1850 Balance -1075 -2485 -500 -1485 Meds/Results Medications: Active Medications Generic Name Dose Route Start Last Admin Trade Name Freq PRN Reason Stop Dose Admin Acetaminophen 650 mg 08/26/24 06:26 09/02/24 18:01 Acetaminophen 325 Mg Tablet PO 650 mg Q4H PRN Administration Mild Pain (1-3) or Fever Al Hydrox/Mg Hydrox/Simethicone 30 ml 08/26/24 06:26 Mag Hydrox/Al Hydrox/Simeth 30 Ml Udc PO QID PRN Dyspepsia Amlodipine Besylate 10 mg 08/26/24 09:00 08/28/24 08:48 Amlodipine Besylate 10 Mg Tablet PO Not Given DAILY PA Bisacodyl 5 mg 08/26/24 06:26 08/30/24 17:22 Bisacodyl 5 Mg Tablet Ec PO 5 mg DAILY PRN Administration Constipation Dextrose 12.5 gm 09/01/24 12:12 Dextrose 50% 25 Gm/50 Ml Syringe IV PUSH PRN PRN Hypoglycemia Protocol Diltiazem HCl 30 mg/ Diltiazem 90 mg 08/27/24 10:15 09/03/24 05:41 HCl 60 mg PO 90 mg Q8HR PA Administration Empagliflozin 10 mg 09/03/24 09:00 09/03/24 08:54 Empagliflozin 10 Mg Tablet PO 10 mg DAILY PA Administration Fish Oil 2 gm 08/26/24 09:00 09/03/24 08:53 [place] 3 Polyunsat Fatty Acids 1 Gm Cap PO 2 gm BID PA Administration Folic Acid 1 mg 08/29/24 12:55 09/03/24 08:53 Folic Acid 1 Mg Tablet PO 1 mg DAILY PA Administration Furosemide 20 mg 08/26/24 09:00 08/27/24 08:48 Furosemide 20 Mg Tablet PO 20 mg DAILY PA Administration Furosemide 20 mg 09/01/24 09:00 09/03/24 08:54 Furosemide Inj 40 Mg/4 Ml Vial IV PUSH 20 mg BID PA Administration Glucagon 1 mg 09/01/24 12:12 Glucagon For Inj 1 Mg Vial IM PRN PRN Hypoglycemia Protocol Glucose 15 gm 09/01/24 12:12 Glucose Oral Gel 15 Gm Of Glucse In 37.5 Gm Tube PO PRN PRN Hypoglycemia Protocol Guaifenesin 1,200 mg 08/30/24 21:00 09/03/24 08:53 Guaifenesin 12 Hr 600 Mg Tabcr PO 1,200 mg Q12HR PA Administration Dextrose 1,000 mls @ 100 mls/hr 09/01/24 12:12 Dextrose 5% 1,000 Ml IVPB PRN PRN Hypoglycemia Protocol Insulin Aspart 1 - 3 units 09/01/24 21:00 09/02/24 20:34 Insulin Aspart (*Bkc) 100 Units/Ml SUB-Q Not Given HS PA Protocol Insulin Aspart 3 - 6 units 09/01/24 12:19 09/03/24 08:49 Insulin Aspart (*Bkc) 100 Units/Ml SUB-Q Not Given TIDWM PA Protocol Irbesartan 150 mg 08/26/24 09:00 08/28/24 08:48 Irbesartan 150 Mg Tablet PO Not Given DAILY PA Lorazepam 2 mg 08/26/24 21:53 09/01/24 14:32 Lorazepam Inj (*Crx) 2 Mg/Ml Vial IV PUSH 2 mg Q2H PRN Administration CIWA > 15 Lorazepam 2 mg 08/26/24 21:53 09/02/24 05:46 Lorazepam Inj (*Crx) 2 Mg/Ml Vial IV PUSH 2 mg Q4H PRN Administration CIWA 8-15 Lovastatin 40 mg 08/26/24 21:00 09/02/24 20:27 Lovastatin 20 Mg Tablet PO 40 mg HS PA Administration Magnesium Oxide 400 mg 08/26/24 09:00 09/03/24 08:53 Magnesium Oxide 400 Mg Tablet PO 400 mg DAILY PA Administration Methylprednisolone Sodium Succinate 40 mg 08/30/24 14:00 09/03/24 05:41 Methylprednisolone Sod Succ 40 Mg Vial IV PUSH 40 mg Q8HR PA Administration Multivitamins Therapeutic 1 tablet 08/26/24 09:00 09/03/24 08:53 Multivitamins Therapeutic Tab (*Bkc) PO 1 tablet DAILY PA Administration Pantoprazole Sodium 40 mg 08/30/24 21:00 09/03/24 08:54 Pantoprazole Sodium Iv 40 Mg Vial IV PUSH 40 mg Q12HR PA Administration Potassium Chloride 40 meq 09/03/24 09:00 09/03/24 08:54 Potassium Chloride 20 Meq Packet (For Liquid) PO 40 meq DAILY PA Administration Propranolol HCl 120 mg 08/26/24 21:00 09/02/24 20:28 Propranolol Hcl 60 Mg Capsule Cr PO 120 mg HS PA Administration Sucralfate 1 gm 08/26/24 11:30 09/03/24 05:41 Sucralfate 1 Gm Tablet PO 1 gm ACHS PA Administration Thiamine HCl 100 mg 08/29/24 12:55 09/03/24 08:52 Thiamine Hcl 100 Mg Tablet PO 100 mg QAM PA Administration Radiology Results: ITS Impressions Renal Ultrasound 08/28/24 09:25 IMPRESSION: No hydronephrosis or renal calculi. Findings suggesting medical renal disease. Abdomen Ultrasound 08/28/24 11:48 IMPRESSION: Limited evaluation of the pancreas secondary to overlying bowel gas. Trace perihepatic free fluid. Phasic flow within the portal vein. Hepatomegaly. Single static measurement of the common bile duct is 4 mm, a significant difference from recent CT examination for which MRCP (may be performed without intravenous contrast) is recommended for confirmation. Chest CT 08/29/24 18:13 IMPRESSION: 1. Pneumonia involving the right upper and lower lobe. 2. Bilateral pleural effusion more on the right side with adjacent atelectasis versus pneumonia. 3. Tracheobronchomalacia. 4. Cardiomegaly with congestive haley. Venous Doppler Study 08/30/24 13:26 IMPRESSION: 1. No deep venous thrombosis. Modified Barium Swallow 08/30/24 16:58 IMPRESSION: Pharyngeal dysphagia with laryngeal penetration without aspiration. Please correlate with speech pathologist findings and specific feeding recommendations. Chest X-Ray 09/01/24 06:34 Impression: Mild bibasilar pulmonary edema changes with minimal right pleural effusion. Labs Labs: Laboratory Results - last 24 hr 08/31/24 09/02/24 09/02/24 04:00 10:47 14:30 WBC RBC Hgb Hct MCV MCH MCHC RDW Plt Count MPV Immature Gran % (Auto) Neut % (Auto) Lymph % (Auto) [place] % (Auto) Eos % (Auto) Baso % (Auto) Lymph # (Auto) [place] # (Auto) Eos # (Auto) Baso # (Auto) Abs Immat Gran (auto) Absolute Neuts (auto) Absolute Nucleated RBC Nucleated RBC % Puncture Site Right radial ABG pH 7.457 H ABG pCO2 47.9 H ABG pO2 72.2 L ABG PO2/FiO2 Ratio 3.01 ABG HCO3 33.1 H ABG O2 Saturation 95.1 ABG O2 Content 15.2 L ABG Base Excess 8.1 A-a Gradient 41.9 Oxyhemoglobin 93.5 Total Hemoglobin 11.5 L O2 Delivery Device Nasal cannula O2 Liters/Min 1.0 FiO2 24 Sodium Potassium Chloride Carbon Dioxide Anion Gap BUN Creatinine Estim Creat Clear Calc Estimated GFR Glucose POC Capillary Glucose 142 H Calcium Phosphorus Magnesium Total Bilirubin AST ALT Alkaline Phosphatase Total Protein Albumin M.pneumoniae IgM Titer <770 09/02/24 09/02/24 09/03/24 15:45 19:41 05:13 WBC 6.2 RBC 3.11 L Hgb 10.3 L Hct 32.3 L MCV 103.9 H MCH 33.1 MCHC 31.9 L RDW 13.3 Plt Count 143 L MPV 9.4 Immature Gran % (Auto) 1.0 H Neut % (Auto) 78.3 H Lymph % (Auto) 6.1 L [place] % (Auto) 14.4 H Eos % (Auto) 0.2 Baso % (Auto) 0.0 L Lymph # (Auto) 0.38 L [place] # (Auto) 0.9 H Eos # (Auto) 0.0 Baso # (Auto) 0.0 Abs Immat Gran (auto) 0.06 H Absolute Neuts (auto) 4.9 Absolute Nucleated RBC 0.000 Nucleated RBC % 0.0 Puncture Site ABG pH ABG pCO2 ABG pO2 ABG PO2/FiO2 Ratio ABG HCO3 ABG O2 Saturation ABG O2 Content ABG Base Excess A-a Gradient Oxyhemoglobin Total Hemoglobin O2 Delivery Device O2 Liters/Min FiO2 Sodium Potassium Chloride Carbon Dioxide Anion Gap BUN Creatinine Estim Creat Clear Calc Estimated GFR Glucose POC Capillary Glucose 156 H 161 H Calcium Phosphorus Magnesium Total Bilirubin AST ALT Alkaline Phosphatase Total Protein Albumin M.pneumoniae IgM Titer 09/03/24 09/03/24 06:08 07:50 WBC RBC Hgb Hct MCV MCH MCHC RDW Plt Count MPV Immature Gran % (Auto) Neut % (Auto) Lymph % (Auto) [place] % (Auto) Eos % (Auto) Baso % (Auto) Lymph # (Auto) [place] # (Auto) Eos # (Auto) Baso # (Auto) Abs Immat Gran (auto) Absolute Neuts (auto) Absolute Nucleated RBC Nucleated RBC % Puncture Site ABG pH ABG pCO2 ABG pO2 ABG PO2/FiO2 Ratio ABG HCO3 ABG O2 Saturation ABG O2 Content ABG Base Excess A-a Gradient Oxyhemoglobin Total Hemoglobin O2 Delivery Device O2 Liters/Min FiO2 Sodium 135 L Potassium 3.4 Chloride 95 L Carbon Dioxide 33 H Anion Gap 7 BUN 44 H Creatinine 1.22 Estim Creat Clear Calc 67 Estimated GFR 60 Glucose 142 H POC Capillary Glucose 148 H Calcium 9.1 Phosphorus 4.4 Magnesium 1.7 Total Bilirubin 0.9 AST 48 ALT 57 H Alkaline Phosphatase 75 Total Protein 7.6 Albumin 3.6 M.pneumoniae IgM Titer
--- NOTE | 2024-09-03 10:56 | PCNWS ---
Weekly nutritional screen. Patient is tolerating current diet with adequate intake. No weight loss reported. No nutritional needs at this time.
[2024-09-03] MEDS: INSULIN ASPART (*BKC) 100 UNITS/ML SUB-Q (11:52)
--- NOTE | 2024-09-03 17:17 | PM.IMPN ---
Progress Note: A&P Assessment and Plan (1) Acute on chronic diastolic heart failure: Code(s): I50.33 - Acute on chronic diastolic (congestive) heart failure Status: Acute (2) Elevated troponin: Code(s): R79.89 - Other specified abnormal findings of blood chemistry Status: Inactive (3) Demand ischemia: Code(s): I24.89 - Other forms of acute ischemic heart disease Status: Inactive (4) Atrial fibrillation with rapid ventricular response: Code(s): I48.91 - Unspecified atrial fibrillation Status: Inactive (5) CHF (congestive heart failure): Qualifiers: Heart failure chronicity: acute Heart failure type: unspecified Qualified Code(s): I50.9 - Heart failure, unspecified Code(s): I50.9 - Heart failure, unspecified Status: Inactive (6) Alcohol abuse: Code(s): F10.10 - Alcohol abuse, uncomplicated Status: Acute Plan Afib with RVR ECHO showed normal EF 60-65% Continue cardizem 90mg Q8, discharge on 240mg daily Patient not on Anticoagulation due to PUD; LAAO outpatient cardiology following Acute hypoxemic respiratory failure, resolved likely from Pneumonia vs COPD Completed abx Pulmonology team on board s/p BiPAP and Vapotherm nighttime oximetry abnormal monitor Pulmonology following Pneumonia CXR reviewed Completed Zosyn and Doxycycline MRSA negative Monitor cultures Elevated troponin Likely demand ischemia PATRICA Cr 4.2, baseline normal improving US renal no obstruction Nephrology following Hematuria CT AP ordered and urology consulted Alcoholic hepatitis with possible Liver cirrhosis Per Gi eval patient qualifies steroid Started prednisone ALT 162/AST 343 down to 66/56 respectively GI following Alcohol withdrawal, resolved LAD / dicscontinue CIWA continue multivitamin monitor Hematuria, resolved urology evaluated and noted it was likely from trauma improving Urology following GI evaluated and noted no significant bile duct dilation, no MRCP recommended DVT prophylaxis on SCDs,heparin Sq Awaiting placement Subjective Date/time seen: 09/03/24 17:17 Interval history: per HPi: ER-HPI Narrative: Patient is a 63-year-old male with known AFib and off his Eliquis at this time for peptic ulcer disease /recent polyp removal here with shortness of breath and a ground level fall at home. EMS was called for a lift assist and further found him to be short of breath and tachycardic and brought him to the emergency room for evaluation. Patient was post have a electric cardioversion of his AFib in the near future. patient was seen by prism measurer suspect patient has demand ischemia due to A. Fib RVR and does not have ACS, however patient in not on any anticoagulation for the A .fib as patient history of PUD, will consult GI for further recommendation. Patient with history daily 6 drinks and last drinks was 2 days ago and currently patient is in withdrawal, patient is given Ativan 2mg IV x1, place the patient on Librium 50mg q6 Ana Cristina, and started the patient on banana beg, to provide thiamin and multiple vitamin, will monitor patient with CIWA protocol. patient remains clinically stable does not show any signs or symptoms or withdrawl, remains in A. Fib uable to anticoagulate due PUD and recent removal of clonic polyps, Chest x-ray shows pulmonary edema did give low dose IV lasix 20mg, not much urine out put and his Scr calista , consulted poleyard supervisor on 08/27, further recommendation to follow, patient with elevated LFT, long history of alcohol abuse, abdomen US showed single static measurement of the common bile duct is 4 mm, a significant difference from recent CT examination for which MRCP (may be performed without intravenous contrast) is recommended for confirmation. will reconsult GI for further recommendation, will monitor, his is present gave update 09/03/24 Patient was seen and examined at bedside. he is feeling fine, denies chest pain, abd pain, N/V . SOB is better. Pending placement' Review of Systems Review of Systems: As per HPI Exam Narrative: Morbidly obese Patient is comfortable, NAD HEENT: eyes are clear and none icteric LUNGS: Irregularly irregular tachy HEART: RR S1S2 ABD: BS+, Soft and nontender Lower extremities: no edema SKIN: nonjaundiced Neuro: grossly intact. Objective Data Vital Signs Vital Signs: Vital Signs - 24 hr 09/02/24 19:54 09/02/24 20:00 09/02/24 20:00 Temperature 97.5 F L Pulse Rate 84 85 Respiratory Rate 18 Blood Pressure 136/75 Pulse Oximetry 84 L 93 Oxygen Delivery Room Air Oxygen Flow Rate 09/02/24 20:28 09/02/24 22:12 09/02/24 23:42 Temperature Pulse Rate 84 76 Respiratory Rate Blood Pressure Pulse Oximetry 89 L 86 L Oxygen Delivery Room Air High Flow Nasal Cannula Oxygen Flow Rate 1 09/03/24 00:00 09/03/24 00:00 09/03/24 02:00 Temperature 98.2 F Pulse Rate 76 73 Respiratory Rate 18 Blood Pressure 127/78 Pulse Oximetry 98 94 Oxygen Delivery Room Air Oxygen Flow Rate 09/03/24 04:00 09/03/24 05:11 09/03/24 07:44 Temperature 97.7 F Pulse Rate 82 Respiratory Rate Blood Pressure 120/69 Pulse Oximetry 91 95 Oxygen Delivery High Flow Nasal Cannula Oxygen Flow Rate 1 09/03/24 07:51 09/03/24 08:00 09/03/24 08:00 Temperature Pulse Rate 78 80 Respiratory Rate 16 Blood Pressure Pulse Oximetry Oxygen Delivery Room Air Oxygen Flow Rate 09/03/24 08:02 09/03/24 11:35 09/03/24 12:00 Temperature 97.5 F L Pulse Rate 86 84 Respiratory Rate 14 Blood Pressure 123/73 Pulse Oximetry 94 96 Oxygen Delivery Nasal Cannula Oxygen Flow Rate 1 09/03/24 16:00 09/03/24 16:00 Temperature 97.4 F L Pulse Rate 65 65 Respiratory Rate 14 Blood Pressure 110/54 L Pulse Oximetry 98 Oxygen Delivery Oxygen Flow Rate Intake/Output Intake/Output: Intake & Output 08/31/24 09/01/24 09/02/24 09/03/24 23:59 23:59 23:59 23:59 Intake Total 1700 1265 1850 665 Output Total 2775 3750 2350 1850 [facility] -[phone] -[phone] -500 -1185 Meds/Results Medications: Active Medications Generic Name Dose Route Start Last Admin Trade Name Freq PRN Reason Stop Dose Admin Acetaminophen 650 mg 08/26/24 06:26 09/02/24 18:01 Acetaminophen 325 Mg Tablet PO 650 mg Q4H PRN Administration Mild Pain (1-3) or Fever Al Hydrox/Mg Hydrox/Simethicone 30 ml 08/26/24 06:26 Mag Hydrox/Al Hydrox/Simeth 30 Ml Udc PO QID PRN Dyspepsia Amlodipine Besylate 10 mg 08/26/24 09:00 08/28/24 08:48 Amlodipine Besylate 10 Mg Tablet PO Not Given DAILY ANA CRISTINA Bisacodyl 5 mg 08/26/24 06:26 08/30/24 17:22 Bisacodyl 5 Mg Tablet Ec PO 5 mg DAILY PRN Administration Constipation Dextrose 12.5 gm 09/01/24 12:12 Dextrose 50% 25 Gm/50 Ml Syringe IV PUSH PRN PRN Hypoglycemia Protocol Diltiazem HCl 30 mg/ Diltiazem 90 mg 08/27/24 10:15 09/03/24 13:29 HCl 60 mg PO 90 mg Q8HR ANA CRISTINA Administration Empagliflozin 10 mg 09/03/24 09:00 09/03/24 08:54 Empagliflozin 10 Mg Tablet PO 10 mg DAILY ANA CRISTINA Administration Fish Oil 2 gm 08/26/24 09:00 09/03/24 16:36 [place] 3 Polyunsat Fatty Acids 1 Gm Cap PO 2 gm BID ANA CRISTINA Administration Folic Acid 1 mg 08/29/24 12:55 09/03/24 08:53 Folic Acid 1 Mg Tablet PO 1 mg DAILY ANA CRISTINA Administration Furosemide 20 mg 08/26/24 09:00 08/27/24 08:48 Furosemide 20 Mg Tablet PO 20 mg DAILY ANA CRISTINA Administration Furosemide 20 mg 09/01/24 09:00 09/03/24 16:36 Furosemide Inj 40 Mg/4 Ml Vial IV PUSH 20 mg BID ANA CRISTINA Administration Glucagon 1 mg 09/01/24 12:12 Glucagon For Inj 1 Mg Vial IM PRN PRN Hypoglycemia Protocol Glucose 15 gm 09/01/24 12:12 Glucose Oral Gel 15 Gm Of Glucse In 37.5 Gm Tube PO PRN PRN Hypoglycemia Protocol Guaifenesin 1,200 mg 08/30/24 21:00 09/03/24 08:53 Guaifenesin 12 Hr 600 Mg Tabcr PO 1,200 mg Q12HR ANA CRISTINA Administration Dextrose 1,000 mls @ 100 mls/hr 09/01/24 12:12 Dextrose 5% 1,000 Ml IVPB PRN PRN Hypoglycemia Protocol Insulin Aspart 1 - 3 units 09/01/24 21:00 09/02/24 20:34 Insulin Aspart (*Bkc) 100 Units/Ml SUB-Q Not Given HS ANA CRISTINA Protocol Insulin Aspart 3 - 6 units 09/01/24 12:19 09/03/24 16:30 Insulin Aspart (*Bkc) 100 Units/Ml SUB-Q Not Given TIDWM ANA CRISTINA Protocol Irbesartan 150 mg 08/26/24 09:00 08/28/24 08:48 Irbesartan 150 Mg Tablet PO Not Given DAILY ANA CRISTINA Lorazepam 2 mg 08/26/24 21:53 09/01/24 14:32 Lorazepam Inj (*Crx) 2 Mg/Ml Vial IV PUSH 2 mg Q2H PRN Administration CIWA > 15 Lorazepam 2 mg 08/26/24 21:53 09/02/24 05:46 Lorazepam Inj (*Crx) 2 Mg/Ml Vial IV PUSH 2 mg Q4H PRN Administration CIWA 8-15 Lovastatin 40 mg 08/26/24 21:00 09/02/24 20:27 Lovastatin 20 Mg Tablet PO 40 mg HS ANA CRISTINA Administration Magnesium Oxide 400 mg 08/26/24 09:00 09/03/24 08:53 Magnesium Oxide 400 Mg Tablet PO 400 mg DAILY ANA CRISTINA Administration Methylprednisolone Sodium Succinate 40 mg 08/30/24 14:00 09/03/24 13:29 Methylprednisolone Sod Succ 40 Mg Vial IV PUSH 40 mg Q8HR ANA CRISTINA Administration Multivitamins Therapeutic 1 tablet 08/26/24 09:00 09/03/24 08:53 Multivitamins Therapeutic Tab (*Bkc) PO 1 tablet DAILY ANA CRISTINA Administration Pantoprazole Sodium 40 mg 08/30/24 21:00 09/03/24 08:54 Pantoprazole Sodium Iv 40 Mg Vial IV PUSH 40 mg Q12HR ANA CRISTINA Administration Potassium Chloride 40 meq 09/03/24 09:00 09/03/24 08:54 Potassium Chloride 20 Meq Packet (For Liquid) PO 40 meq DAILY ANA CRISTINA Administration Propranolol HCl 120 mg 08/26/24 21:00 09/02/24 20:28 Propranolol Hcl 60 Mg Capsule Cr PO 120 mg HS ANA CRISTINA Administration Sucralfate 1 gm 08/26/24 11:30 09/03/24 16:36 Sucralfate 1 Gm Tablet PO 1 gm ACHS ANA CRISTINA Administration Thiamine HCl 100 mg 08/29/24 12:55 09/03/24 08:52 Thiamine Hcl 100 Mg Tablet PO 100 mg QAM ANA CRISTINA Administration Radiology Results: ITS Impressions Renal Ultrasound 08/28/24 09:25 IMPRESSION: No hydronephrosis or renal calculi. Findings suggesting medical renal disease. Abdomen Ultrasound 08/28/24 11:48 IMPRESSION: Limited evaluation of the pancreas secondary to overlying bowel gas. Trace perihepatic free fluid. Phasic flow within the portal vein. Hepatomegaly. Single static measurement of the common bile duct is 4 mm, a significant difference from recent CT examination for which MRCP (may be performed without intravenous contrast) is recommended for confirmation. Chest CT 08/29/24 18:13 IMPRESSION: 1. Pneumonia involving the right upper and lower lobe. 2. Bilateral pleural effusion more on the right side with adjacent atelectasis versus pneumonia. 3. Tracheobronchomalacia. 4. Cardiomegaly with congestive haley. Venous Doppler Study 08/30/24 13:26 IMPRESSION: 1. No deep venous thrombosis. Modified Barium Swallow 08/30/24 16:58 IMPRESSION: Pharyngeal dysphagia with laryngeal penetration without aspiration. Please correlate with speech pathologist findings and specific feeding recommendations. Chest X-Ray 09/01/24 06:34 Impression: Mild bibasilar pulmonary edema changes with minimal right pleural effusion. Labs Labs: Laboratory Results - last 24 hr 09/02/24 09/03/24 09/03/24 19:41 05:13 06:08 WBC 6.2 RBC 3.11 L Hgb 10.3 L Hct 32.3 L MCV 103.9 H MCH 33.1 MCHC 31.9 L RDW 13.3 Plt Count 143 L MPV 9.4 Immature Gran % (Auto) 1.0 H Neut % (Auto) 78.3 H Lymph % (Auto) 6.1 L [place] % (Auto) 14.4 H Eos % (Auto) 0.2 Baso % (Auto) 0.0 L Lymph # (Auto) 0.38 L [place] # (Auto) 0.9 H Eos # (Auto) 0.0 Baso # (Auto) 0.0 Abs Immat Gran (auto) 0.06 H Absolute Neuts (auto) 4.9 Absolute Nucleated RBC 0.000 Nucleated RBC % 0.0 Sodium 135 L Potassium 3.4 Chloride 95 L Carbon Dioxide 33 H Anion Gap 7 BUN 44 H Creatinine 1.22 Estim Creat Clear Calc 67 Estimated GFR 60 Glucose 142 H POC Capillary Glucose 161 H Calcium 9.1 Phosphorus 4.4 Magnesium 1.7 Total Bilirubin 0.9 AST 48 ALT 57 H Alkaline Phosphatase 75 Total Protein 7.6 Albumin 3.6 09/03/24 09/03/24 09/03/24 07:50 11:15 16:22 WBC RBC Hgb Hct MCV MCH MCHC RDW Plt Count MPV Immature Gran % (Auto) Neut % (Auto) Lymph % (Auto) Gates % (Auto) Eos % (Auto) Baso % (Auto) Lymph # (Auto) [place] # (Auto) Eos # (Auto) Baso # (Auto) Abs Immat Gran (auto) Absolute Neuts (auto) Absolute Nucleated RBC Nucleated RBC % Sodium Potassium Chloride Carbon Dioxide Anion Gap BUN Creatinine Estim Creat Clear Calc Estimated GFR Glucose POC Capillary Glucose 148 H 301 H 78 Calcium Phosphorus Magnesium Total Bilirubin AST ALT Alkaline Phosphatase Total Protein Albumin Quality VTE Prophylaxis VTE prophylaxis: mechanical ordered
--- NOTE | 2024-09-03 17:39 | PC.NURSE ---
This patient, Jose Davidson, was transferred to [ [facility]] on 09/03/24 at 1739. Personal belongings sent with patient. Report given to [ Amalia]. Appropriate documentation sent with patient.
[2024-09-03] MEDS: LOVASTATIN 20 MG TABLET 40 MG PO (21:09)
[2024-09-03] MEDS: PROPRANOLOL HCL 60 MG CAPSULE CR 120 MG PO (21:09)
[2024-09-03] MEDS: ACETAMINOPHEN 325 MG TABLET 650 MG PO (21:23)
[2024-09-04] VITALS (11 sets, daily range): BP systolic 118–136; BP diastolic 64–81; PULSE 79–100; RESP 12–18; TEMP 36–36.8; O2SAT 93–94
[2024-09-04] MEDS: ACETAMINOPHEN 325 MG TABLET 650 MG PO (03:17)
[2024-09-04] MEDS: SUCRALFATE 1 GM TABLET PO ×4 (05:45→20:37)
[2024-09-04] MEDS: dilTIAZem HCL TAB 30 MG, dilTIAZem HCL TAB 60 MG 90 MG PO (05:45)
[2024-09-04 06:09] LABS: Hematocrit 32.0 % (42.0-52.0); Hemoglobin 10.3 g/dL (14.0-18.0); Mean Corpuscular HGB Conc 32.2 g/dl (32-36); Mean Corpuscular Hemoglobin 33.4 pg (26-34); Mean Corpuscular Volume 103.9 fl (80-100); Platelet Count Result 172 k/mm3 (150-375); Red Blood Count 3.08 M/mm3 (4.6-6.20); White Blood Count 7.1 K/mm3 (4.5-10.0)
[2024-09-04 06:22] LABS: Albumin Level 3.7 g/dL (3.5-5.1); Anion Gap 6 mmol/L (4-12); Blood Urea Nitrogen 42 mg/dL (9-20); Calcium 9.2 mg/dL (8.4-10.2); Carbon Dioxide 36 mmol/L (22-30); Chloride 95 mmol/L (98-107); Estimated CRCL calculation 66 ml/min; Estimated Glomerular Filt Rate 59; Glucose 138 mg/dL (65-110); Magnesium 1.9 mg/dL (1.6-2.3); Potassium 3.4 mmol/L (3.4-5.0); Sodium 137 mmol/L (137-145)
[2024-09-04] MEDS: THIAMINE HCL 100 MG TABLET PO (09:49)
[2024-09-04] MEDS: EMPAGLIFLOZIN 10 MG TABLET PO (09:49)
[2024-09-04] MEDS: OMEGA 3 POLYUNSAT FATTY ACIDS 1 GM CAP 2 GM PO ×2 (09:49→17:13)
[2024-09-04] MEDS: FOLIC ACID 1 MG TABLET PO (09:49)
[2024-09-04] MEDS: MAGNESIUM OXIDE 400 MG TABLET PO (09:49)
[2024-09-04] MEDS: guaiFENesin 12 HR 600 MG TABCR 1200 MG PO ×2 (09:49→20:35)
[2024-09-04] MEDS: MULTIVITAMINS THERAPEUTIC TAB (*BKC) 1 TABLET PO (09:49)
[2024-09-04] MEDS: POTASSIUM CHLORIDE 20 MEQ PACKET (FOR LIQUID) 40 MEQ PO (09:49)
[2024-09-04] MEDS: PANTOPRAZOLE SODIUM IV 40 MG VIAL IV PUSH ×2 (09:50→20:36)
[2024-09-04] MEDS: FUROSEMIDE 20 MG TABLET PO (09:53)
--- NOTE | 2024-09-04 10:36 | PM.PNCARD ---
Progress Note: A&P Assessment and Plan (1) Persistent atrial fibrillation: Code(s): I48.19 - Other persistent atrial fibrillation Status: Acute (2) Acute on chronic diastolic heart failure: Code(s): I50.33 - Acute on chronic diastolic (congestive) heart failure Status: Acute (3) Hyperlipidemia: Code(s): E78.5 - Hyperlipidemia, unspecified Status: Acute Plan 63-year-old man with persistent atrial fibrillation, chronic systolic cardiomyopathy (recover LVEF), hyperlipidemia, peptic ulcer disease, possible cirrhosis from alcohol abuse presented with fall Persistent atrial fibrillation -not on anticoagulation due to fall risk in setting of alcohol abuse along with possible cirrhosis, and his peptic ulcer disease -we have briefly discussed that his CHADsVASc score is currently 2 but will be 3 when he turns 64 and his HAS-BLED score of 3 (liver disease, alcohol abuse, PUD) and that LAAO would be an option to lower his risk of ischemic stroke without further increasing his risk of bleeding -he will follow-up with Dr. Arreola and make a final decision on LAAO after which he can see me -continue propranolol and diltiazem on discharge Chronic systolic heart failure (recover LVEF) -stop hydrochlorothiazide -continue Lasix 20 mg p.o. daily and Jardiance 10 p.o. daily Hyperlipidemia -continue lovastatin No plans for further inpatient workup. Can follow outpatient. Subjective Date/time seen: 09/04/24 10:36 Interval history: No significant shortness of breath or chest pain. Has been weaned off nasal cannula supplemental oxygen and now on room air Review of Systems Cardiovascular: Cardiovascular: Reports as per HPI Respiratory: Respiratory: Reports as per HPI Exam Const: Other: Ill-appearing HENMT: Mouth: Yes moist mucous membranes Eyes: EOM: EOMs intact bilaterally Neck: Neck: no JVD Resp: Effort & Inspection: normal respiratory effort Auscultation: clear to auscultation bilaterally Cardio: Rate: regular rate Rhythm: abnormal rhythm Neuro: Other: Tremors Extrem: General: no edema Objective Data Vital Signs Vital Signs: Vital Signs - 24 hr 09/03/24 11:35 09/03/24 12:00 09/03/24 16:00 Temperature 36.4 C L 36.3 C L Pulse Rate 86 84 65 Respiratory Rate 14 14 Blood Pressure 123/73 110/54 L Pulse Oximetry 96 98 Oxygen Delivery Oxygen Flow Rate 09/03/24 16:00 09/03/24 20:00 09/03/24 20:30 Temperature Pulse Rate 65 85 99 Respiratory Rate 12 Blood Pressure Pulse Oximetry 92 Oxygen Delivery Nasal Cannula Oxygen Flow Rate 2 09/03/24 21:00 09/03/24 21:09 09/03/24 21:25 Temperature 36.0 C L Pulse Rate 99 98 88 Respiratory Rate 16 12 Blood Pressure 118/70 Pulse Oximetry 92 93 Oxygen Delivery Room Air Oxygen Flow Rate 09/03/24 22:56 09/04/24 00:00 09/04/24 00:00 Temperature Pulse Rate 99 81 Respiratory Rate Blood Pressure 118/70 Pulse Oximetry 92 Oxygen Delivery Oxygen Flow Rate 09/04/24 04:00 09/04/24 04:00 09/04/24 06:12 Temperature 36.0 C L Pulse Rate 87 88 Respiratory Rate 12 Blood Pressure 118/70 136/77 Pulse Oximetry 93 Oxygen Delivery Oxygen Flow Rate Intake/Output Intake/Output: Intake & Output 09/01/24 09/02/24 09/03/24 09/04/24 23:59 23:59 23:59 23:59 Intake Total 1265 1850 665 740 Output Total 3750 2350 1850 300 Balance -2485 -500 -1185 440 Meds/Results Medications: Active Medications Generic Name Dose Route Start Last Admin Trade Name Freq PRN Reason Stop Dose Admin Acetaminophen 650 mg 08/26/24 06:26 09/04/24 03:17 Acetaminophen 325 Mg Tablet PO 650 mg Q4H PRN Administration Mild Pain (1-3) or Fever Al Hydrox/Mg Hydrox/Simethicone 30 ml 08/26/24 06:26 Mag Hydrox/Al Hydrox/Simeth 30 Ml Udc PO QID PRN Dyspepsia Amlodipine Besylate 10 mg 08/26/24 09:00 08/28/24 08:48 Amlodipine Besylate 10 Mg Tablet PO Not Given DAILY PA Bisacodyl 5 mg 08/26/24 06:26 08/30/24 17:22 Bisacodyl 5 Mg Tablet Ec PO 5 mg DAILY PRN Administration Constipation Dextrose 12.5 gm 09/01/24 12:12 Dextrose 50% 25 Gm/50 Ml Syringe IV PUSH PRN PRN Hypoglycemia Protocol Diltiazem HCl 240 mg 09/04/24 12:00 Diltiazem Hcl Cd 240 Mg Cap.24hr PO QAM PA Empagliflozin 10 mg 09/03/24 09:00 09/04/24 09:49 Empagliflozin 10 Mg Tablet PO 10 mg DAILY PA Administration Fish Oil 2 gm 08/26/24 09:00 09/04/24 09:49 [place] 3 Polyunsat Fatty Acids 1 Gm Cap PO 2 gm BID PA Administration Folic Acid 1 mg 08/29/24 12:55 09/04/24 09:49 Folic Acid 1 Mg Tablet PO 1 mg DAILY PA Administration Furosemide 20 mg 08/26/24 09:00 09/04/24 09:53 Furosemide 20 Mg Tablet PO 20 mg DAILY PA Administration Glucagon 1 mg 09/01/24 12:12 Glucagon For Inj 1 Mg Vial IM PRN PRN Hypoglycemia Protocol Glucose 15 gm 09/01/24 12:12 Glucose Oral Gel 15 Gm Of Glucse In 37.5 Gm Tube PO PRN PRN Hypoglycemia Protocol Guaifenesin 1,200 mg 08/30/24 21:00 09/04/24 09:49 Guaifenesin 12 Hr 600 Mg Tabcr PO 1,200 mg Q12HR PA Administration Dextrose 1,000 mls @ 100 mls/hr 09/01/24 12:12 Dextrose 5% 1,000 Ml IVPB PRN PRN Hypoglycemia Protocol Insulin Aspart 1 - 3 units 09/01/24 21:00 09/03/24 21:11 Insulin Aspart (*Bkc) 100 Units/Ml SUB-Q Not Given HS PA Protocol Insulin Aspart 3 - 6 units 09/01/24 12:19 09/04/24 09:46 Insulin Aspart (*Bkc) 100 Units/Ml SUB-Q Not Given TIDWM PA Protocol Irbesartan 150 mg 08/26/24 09:00 08/28/24 08:48 Irbesartan 150 Mg Tablet PO Not Given DAILY PA Lovastatin 40 mg 08/26/24 21:00 09/03/24 21:09 Lovastatin 20 Mg Tablet PO 40 mg HS PA Administration Magnesium Oxide 400 mg 08/26/24 09:00 09/04/24 09:49 Magnesium Oxide 400 Mg Tablet PO 400 mg DAILY PA Administration Multivitamins Therapeutic 1 tablet 08/26/24 09:00 09/04/24 09:49 Multivitamins Therapeutic Tab (*Bkc) PO 1 tablet DAILY PA Administration Pantoprazole Sodium 40 mg 08/30/24 21:00 09/04/24 09:50 Pantoprazole Sodium Iv 40 Mg Vial IV PUSH 40 mg Q12HR PA Administration Potassium Chloride 40 meq 09/03/24 09:00 09/04/24 09:49 Potassium Chloride 20 Meq Packet (For Liquid) PO 40 meq DAILY PA Administration Prednisone 40 mg 09/04/24 12:00 Prednisone 20 Mg Tablet PO DAILY@0800 PA Propranolol HCl 120 mg 08/26/24 21:00 09/03/24 21:09 Propranolol Hcl 60 Mg Capsule Cr PO 120 mg HS PA Administration Sucralfate 1 gm 08/26/24 11:30 09/04/24 05:45 Sucralfate 1 Gm Tablet PO 1 gm ACHS PA Administration Thiamine HCl 100 mg 08/29/24 12:55 09/04/24 09:49 Thiamine Hcl 100 Mg Tablet PO 100 mg QAM PA Administration Radiology Results: ITS Impressions Renal Ultrasound 08/28/24 09:25 IMPRESSION: No hydronephrosis or renal calculi. Findings suggesting medical renal disease. Abdomen Ultrasound 08/28/24 11:48 IMPRESSION: Limited evaluation of the pancreas secondary to overlying bowel gas. Trace perihepatic free fluid. Phasic flow within the portal vein. Hepatomegaly. Single static measurement of the common bile duct is 4 mm, a significant difference from recent CT examination for which MRCP (may be performed without intravenous contrast) is recommended for confirmation. Chest CT 08/29/24 18:13 IMPRESSION: 1. Pneumonia involving the right upper and lower lobe. 2. Bilateral pleural effusion more on the right side with adjacent atelectasis versus pneumonia. 3. Tracheobronchomalacia. 4. Cardiomegaly with congestive haley. Venous Doppler Study 08/30/24 13:26 IMPRESSION: 1. No deep venous thrombosis. Modified Barium Swallow 08/30/24 16:58 IMPRESSION: Pharyngeal dysphagia with laryngeal penetration without aspiration. Please correlate with speech pathologist findings and specific feeding recommendations. Chest X-Ray 09/01/24 06:34 Impression: Mild bibasilar pulmonary edema changes with minimal right pleural effusion. Labs Labs: Laboratory Results - last 24 hr 09/03/24 09/03/24 09/03/24 11:15 16:22 17:25 WBC RBC Hgb Hct MCV MCH MCHC RDW Plt Count MPV Sodium Potassium Chloride Carbon Dioxide Anion Gap BUN Creatinine Estim Creat Clear Calc Estimated GFR Glucose POC Capillary Glucose 301 H 78 148 H Calcium Phosphorus Magnesium Albumin 09/03/24 09/04/24 09/04/24 20:38 05:28 07:55 WBC 7.1 RBC 3.08 L Hgb 10.3 L Hct 32.0 L MCV 103.9 H MCH 33.4 MCHC 32.2 RDW 13.2 Plt Count 172 MPV 9.8 Sodium 137 Potassium 3.4 Chloride 95 L Carbon Dioxide 36 H Anion Gap 6 BUN 42 H Creatinine 1.24 Estim Creat Clear Calc 66 Estimated GFR 59 Glucose 138 H POC Capillary Glucose 150 H 141 H Calcium 9.2 Phosphorus 4.4 Magnesium 1.9 Albumin 3.7
[2024-09-04] MEDS: dilTIAZem HCL CD 240 MG CAP.24HR PO (12:20)
[2024-09-04] MEDS: INSULIN ASPART (*BKC) 100 UNITS/ML SUB-Q (12:21)
--- NOTE | 2024-09-04 14:39 | P.PNIM_ITS ---
Progress Note: A&P Assessment and Plan (1) Acute on chronic diastolic heart failure: Code(s): I50.33 - Acute on chronic diastolic (congestive) heart failure Status: Acute (2) Elevated troponin: Code(s): R79.89 - Other specified abnormal findings of blood chemistry Status: Inactive (3) Demand ischemia: Code(s): I24.89 - Other forms of acute ischemic heart disease Status: Inactive (4) Atrial fibrillation with rapid ventricular response: Code(s): I48.91 - Unspecified atrial fibrillation Status: Inactive (5) CHF (congestive heart failure): Qualifiers: Heart failure chronicity: acute Heart failure type: unspecified Qualified Code(s): I50.9 - Heart failure, unspecified Code(s): I50.9 - Heart failure, unspecified Status: Inactive (6) Alcohol abuse: Code(s): F10.10 - Alcohol abuse, uncomplicated Status: Acute Plan Afib with RVR ECHO showed normal EF 60-65% Continue cardizem 90mg Q8, discharge on 240mg daily Patient not on Anticoagulation due to PUD; LAAO outpatient cardiology following Acute hypoxemic respiratory failure, resolved likely from Pneumonia vs COPD Completed abx Pulmonology team on board s/p BiPAP and Vapotherm nighttime oximetry abnormal monitor Pulmonology following Pneumonia CXR reviewed Completed Zosyn and Doxycycline MRSA negative Monitor cultures Elevated troponin Likely demand ischemia PATRICA , baseline normal improving US renal no obstruction Nephrology following Hematuria CT AP ordered and urology consulted Alcoholic hepatitis with possible Liver cirrhosis Per Gi eval patient qualifies steroid Started prednisone ALT 162/AST 343 , improved GI following Alcohol withdrawal, resolved LAD 7/ dicscontinue CIWA continue multivitamin monitor Hematuria, resolved urology evaluated and noted it was likely from trauma improving Urology following GI evaluated and noted no significant bile duct dilation, no MRCP recommended DVT prophylaxis on SCDs,heparin Sq Awaiting placement Subjective Date/time seen: 09/04/24 14:39 Interval history: per HPi: ER-HPI Narrative: Patient is a 63-year-old male with known AFib and off his Eliquis at this time for peptic ulcer disease /recent polyp removal here with shortness of breath and a ground level fall at home. EMS was called for a lift assist and further found him to be short of breath and tachycardic and brought him to the emergency room for evaluation. Patient was post have a electric cardioversion of his AFib in the near future. patient was seen by cnc mill and lathe operator suspect patient has demand ischemia due to A. Fib RVR and does not have ACS, however patient in not on any anticoagulation for the A .fib as patient history of PUD, will consult GI for further recommendation. Patient with history daily 6 drinks and last drinks was 2 days ago and currently patient is in withdrawal, patient is given Ativan 2mg IV x1, place the patient on Librium 50mg q6 Ana Cristina, and started the patient on banana beg, to provide thiamin and multiple vitamin, will monitor patient with CIWA protocol. patient remains clinically stable does not show any signs or symptoms or withdrawl, remains in A. Fib uable to anticoagulate due PUD and recent removal of clonic polyps, Chest x-ray shows pulmonary edema did give low dose IV lasix 20mg, not much urine out put and his Scr calista , consulted senior oracle applications developer on 08/27, further recommendation to follow, patient with elevated LFT, long history of alcohol abuse, abdomen US showed single static measurement of the common bile duct is 4 mm, a significant difference from recent CT examination for which MRCP (may be performed without intravenous contrast) is recommended for confirmation. will reconsult GI for further recommendation, will monitor, his is present gave update 09/04/24 Patient was seen and examined at bedside. he is feeling fine, denies chest pain, abd pain, N/V . SOB is better. Pending placement/insurance auth.' Review of Systems Review of Systems: As per HPI Exam Narrative: Morbidly obese Patient is comfortable, NAD HEENT: eyes are clear and none icteric LUNGS: Irregularly irregular tachy HEART: RR S1S2 ABD: BS+, Soft and nontender Lower extremities: no edema SKIN: nonjaundiced Neuro: grossly intact. Objective Data Vital Signs Vital Signs: Vital Signs - 24 hr 09/03/24 16:00 09/03/24 16:00 09/03/24 20:00 Temperature 97.4 F L Pulse Rate 65 65 85 Respiratory Rate 14 Blood Pressure 110/54 L Pulse Oximetry 98 Oxygen Delivery Oxygen Flow Rate 09/03/24 20:30 09/03/24 21:00 09/03/24 21:09 Temperature Pulse Rate 99 99 98 Respiratory Rate 12 16 Blood Pressure Pulse Oximetry 92 92 Oxygen Delivery Nasal Cannula Room Air Oxygen Flow Rate 2 09/03/24 21:25 09/03/24 22:56 09/04/24 00:00 Temperature 96.8 F L Pulse Rate 88 99 Respiratory Rate 12 Blood Pressure 118/70 118/70 Pulse Oximetry 93 92 Oxygen Delivery Oxygen Flow Rate 09/04/24 00:00 09/04/24 04:00 09/04/24 04:00 Temperature Pulse Rate 81 87 Respiratory Rate Blood Pressure 118/70 Pulse Oximetry Oxygen Delivery Oxygen Flow Rate 09/04/24 06:12 09/04/24 08:00 Temperature 96.8 F L Pulse Rate 88 Respiratory Rate 12 Blood Pressure 136/77 Pulse Oximetry 93 Oxygen Delivery Room Air Oxygen Flow Rate Intake/Output Intake/Output: Intake & Output 09/01/24 09/02/24 09/03/24 09/04/24 23:59 23:59 23:59 23:59 Intake Total 1265 1850 665 740 Output Total 3750 2350 1850 300 Balance -2485 -500 -1185 440 Meds/Results Medications: Active Medications Generic Name Dose Route Start Last Admin Trade Name Freq PRN Reason Stop Dose Admin Acetaminophen 650 mg 08/26/24 06:26 09/04/24 03:17 Acetaminophen 325 Mg Tablet PO 650 mg Q4H PRN Administration Mild Pain (1-3) or Fever Al Hydrox/Mg Hydrox/Simethicone 30 ml 08/26/24 06:26 Mag Hydrox/Al Hydrox/Simeth 30 Ml Udc PO QID PRN Dyspepsia Amlodipine Besylate 10 mg 08/26/24 09:00 08/28/24 08:48 Amlodipine Besylate 10 Mg Tablet PO Not Given DAILY ANA CRISTINA Bisacodyl 5 mg 08/26/24 06:26 08/30/24 17:22 Bisacodyl 5 Mg Tablet Ec PO 5 mg DAILY PRN Administration Constipation Dextrose 12.5 gm 09/01/24 12:12 Dextrose 50% 25 Gm/50 Ml Syringe IV PUSH PRN PRN Hypoglycemia Protocol Diltiazem HCl 240 mg 09/04/24 12:00 09/04/24 12:20 Diltiazem Hcl Cd 240 Mg Cap.24hr PO 240 mg QAM ANA CRISTINA Administration Empagliflozin 10 mg 09/03/24 09:00 09/04/24 09:49 Empagliflozin 10 Mg Tablet PO 10 mg DAILY ANA CRISTINA Administration Fish Oil 2 gm 08/26/24 09:00 09/04/24 09:49 Omro 3 Polyunsat Fatty Acids 1 Gm Cap PO 2 gm BID ANA CRISTINA Administration Folic Acid 1 mg 08/29/24 12:55 09/04/24 09:49 Folic Acid 1 Mg Tablet PO 1 mg DAILY ANA CRISTINA Administration Furosemide 20 mg 08/26/24 09:00 09/04/24 09:53 Furosemide 20 Mg Tablet PO 20 mg DAILY ANA CRISTINA Administration Glucagon 1 mg 09/01/24 12:12 Glucagon For Inj 1 Mg Vial IM PRN PRN Hypoglycemia Protocol Glucose 15 gm 09/01/24 12:12 Glucose Oral Gel 15 Gm Of Glucse In 37.5 Gm Tube PO PRN PRN Hypoglycemia Protocol Guaifenesin 1,200 mg 08/30/24 21:00 09/04/24 09:49 Guaifenesin 12 Hr 600 Mg Tabcr PO 1,200 mg Q12HR ANA CRISTINA Administration Dextrose 1,000 mls @ 100 mls/hr 09/01/24 12:12 Dextrose 5% 1,000 Ml IVPB PRN PRN Hypoglycemia Protocol Insulin Aspart 1 - 3 units 09/01/24 21:00 09/03/24 21:11 Insulin Aspart (*Bkc) 100 Units/Ml SUB-Q Not Given HS ANA CRISTINA Protocol Insulin Aspart 3 - 6 units 09/01/24 12:19 09/04/24 12:21 Insulin Aspart (*Bkc) 100 Units/Ml SUB-Q 3 units TIDWM ANA CRISTINA Administration Protocol Irbesartan 150 mg 08/26/24 09:00 08/28/24 08:48 Irbesartan 150 Mg Tablet PO Not Given DAILY ANA CRISTINA Lovastatin 40 mg 08/26/24 21:00 09/03/24 21:09 Lovastatin 20 Mg Tablet PO 40 mg HS ANA CRISTINA Administration Magnesium Oxide 400 mg 08/26/24 09:00 09/04/24 09:49 Magnesium Oxide 400 Mg Tablet PO 400 mg DAILY ANA CRISTINA Administration Multivitamins Therapeutic 1 tablet 08/26/24 09:00 09/04/24 09:49 Multivitamins Therapeutic Tab (*Bkc) PO 1 tablet DAILY ANA CRISTINA Administration Pantoprazole Sodium 40 mg 08/30/24 21:00 09/04/24 09:50 Pantoprazole Sodium Iv 40 Mg Vial IV PUSH 40 mg Q12HR ANA CRISTINA Administration Potassium Chloride 40 meq 09/03/24 09:00 09/04/24 09:49 Potassium Chloride 20 Meq Packet (For Liquid) PO 40 meq DAILY ANA CRISTINA Administration Prednisone 40 mg 09/04/24 12:00 09/04/24 12:20 Prednisone 20 Mg Tablet PO 40 mg DAILY@0800 ANA CRISTINA Administration Propranolol HCl 120 mg 08/26/24 21:00 09/03/24 21:09 Propranolol Hcl 60 Mg Capsule Cr PO 120 mg HS ANA CRISTINA Administration Sucralfate 1 gm 08/26/24 11:30 09/04/24 12:25 Sucralfate 1 Gm Tablet PO 1 gm ACHS ANA CRISTINA Administration Thiamine HCl 100 mg 08/29/24 12:55 09/04/24 09:49 Thiamine Hcl 100 Mg Tablet PO 100 mg QAM ANA CRISTINA Administration Radiology Results: ITS Impressions Renal Ultrasound 08/28/24 09:25 IMPRESSION: No hydronephrosis or renal calculi. Findings suggesting medical renal disease. Abdomen Ultrasound 08/28/24 11:48 IMPRESSION: Limited evaluation of the pancreas secondary to overlying bowel gas. Trace perihepatic free fluid. Phasic flow within the portal vein. Hepatomegaly. Single static measurement of the common bile duct is 4 mm, a significant difference from recent CT examination for which MRCP (may be performed without intravenous contrast) is recommended for confirmation. Chest CT 08/29/24 18:13 IMPRESSION: 1. Pneumonia involving the right upper and lower lobe. 2. Bilateral pleural effusion more on the right side with adjacent atelectasis versus pneumonia. 3. Tracheobronchomalacia. 4. Cardiomegaly with congestive haley. Venous Doppler Study 08/30/24 13:26 IMPRESSION: 1. No deep venous thrombosis. Modified Barium Swallow 08/30/24 16:58 IMPRESSION: Pharyngeal dysphagia with laryngeal penetration without aspiration. Please correlate with speech pathologist findings and specific feeding recommendations. Chest X-Ray 09/01/24 06:34 Impression: Mild bibasilar pulmonary edema changes with minimal right pleural effusion. Labs Labs: Laboratory Results - last 24 hr 09/03/24 09/03/24 09/03/24 16:22 17:25 20:38 WBC RBC Hgb Hct MCV MCH MCHC RDW Plt Count MPV Sodium Potassium Chloride Carbon Dioxide Anion Gap BUN Creatinine Estim Creat Clear Calc Estimated GFR Glucose POC Capillary Glucose 78 148 H 150 H Calcium Phosphorus Magnesium Albumin 09/04/24 09/04/24 09/04/24 05:28 07:55 11:28 WBC 7.1 RBC 3.08 L Hgb 10.3 L Hct 32.0 L MCV 103.9 H MCH 33.4 MCHC 32.2 RDW 13.2 Plt Count 172 MPV 9.8 Sodium 137 Potassium 3.4 Chloride 95 L Carbon Dioxide 36 H Anion Gap 6 BUN 42 H Creatinine 1.24 Estim Creat Clear Calc 66 Estimated GFR 59 Glucose 138 H POC Capillary Glucose 141 H 245 H Calcium 9.2 Phosphorus 4.4 Magnesium 1.9 Albumin 3.7 Quality VTE Prophylaxis VTE prophylaxis: mechanical ordered
[2024-09-04 16:41] LABS: Toxigenic C. Diff NEGATIVE (NEGATIVE)
[2024-09-04] MEDS: LOVASTATIN 20 MG TABLET 40 MG PO (20:36)
[2024-09-04] MEDS: PROPRANOLOL HCL 60 MG CAPSULE CR 120 MG PO (20:36)
[2024-09-05] VITALS (11 sets, daily range): BP systolic 121–140; BP diastolic 68–81; PULSE 72–101; RESP 16–20; TEMP 35.7–36.8; O2SAT 94–95
[2024-09-05] MEDS: SUCRALFATE 1 GM TABLET PO ×4 (05:34→21:57)
[2024-09-05 06:23] LABS: Hematocrit 30.7 % (42.0-52.0); Hemoglobin 9.7 g/dL (14.0-18.0); Mean Corpuscular HGB Conc 31.6 g/dl (32-36); Mean Corpuscular Hemoglobin 33.6 pg (26-34); Mean Corpuscular Volume 106.2 fl (80-100); Platelet Count Result 175 k/mm3 (150-375); Red Blood Count 2.89 M/mm3 (4.6-6.20); White Blood Count 8.8 K/mm3 (4.5-10.0)
[2024-09-05 06:48] LABS: Albumin Level 3.3 g/dL (3.5-5.1); Anion Gap 4 mmol/L (4-12); Blood Urea Nitrogen 40 mg/dL (9-20); Calcium 9.1 mg/dL (8.4-10.2); Carbon Dioxide 34 mmol/L (22-30); Chloride 99 mmol/L (98-107); Estimated CRCL calculation 76 ml/min; Estimated Glomerular Filt Rate > 60; Glucose 113 mg/dL (65-110); Magnesium 1.7 mg/dL (1.6-2.3); Potassium 3.6 mmol/L (3.4-5.0); Sodium 137 mmol/L (137-145)
[2024-09-05] MEDS: POTASSIUM CHLORIDE 20 MEQ PACKET (FOR LIQUID) 40 MEQ PO ×2 (09:39→16:22)
[2024-09-05] MEDS: FOLIC ACID 1 MG TABLET PO (09:40)
[2024-09-05] MEDS: EMPAGLIFLOZIN 10 MG TABLET PO (09:40)
[2024-09-05] MEDS: dilTIAZem HCL CD 240 MG CAP.24HR PO (09:40)
[2024-09-05] MEDS: THIAMINE HCL 100 MG TABLET PO (09:41)
[2024-09-05] MEDS: OMEGA 3 POLYUNSAT FATTY ACIDS 1 GM CAP 2 GM PO (09:41)
[2024-09-05] MEDS: guaiFENesin 12 HR 600 MG TABCR 1200 MG PO ×2 (09:41→21:57)
[2024-09-05] MEDS: MAGNESIUM OXIDE 400 MG TABLET PO (09:41)
[2024-09-05] MEDS: MULTIVITAMINS THERAPEUTIC TAB (*BKC) 1 TABLET PO (09:41)
[2024-09-05] MEDS: PANTOPRAZOLE SODIUM IV 40 MG VIAL IV PUSH ×2 (09:41→21:57)
[2024-09-05] MEDS: LOPERAMIDE HCL 2 MG CAPSULE PO ×3 (09:41→21:57)
[2024-09-05] MEDS: FUROSEMIDE 20 MG TABLET PO (09:41)
--- NOTE | 2024-09-05 11:04 | P.PNUR_ITS ---
Progress Note: A&P Assessment and Plan (1) Gross hematuria: Code(s): R31.0 - Gross hematuria Status: Acute Plan -patient had and passed a voiding trial. -staff and patient report no issues and is voiding without issues. -Ok to discharge from our standpoint. -We will sign off. Subjective Subjective Date/Time Seen: 09/05/24 11:04 Interval history: Patient is a 63-year-old male with known AFib and off his Eliquis at this time for peptic ulcer disease /recent polyp removal here with shortness of breath and a ground level fall at home. EMS was called for a lift assist and further found him to be short of breath and tachycardic and brought him to the emergency room for evaluation. Patient was post have a electric cardioversion of his AFib in the near future. patient was seen by polymer specialist suspect patient has demand ischemia due to A. Fib RVR and does not have ACS, however patient in not on any anticoagulation for the A .fib as patient history of PUD, will consult GI for further recommendation. Patient with history daily 6 drinks and last drinks was 2 days ago and currently patient is in withdrawal, patient is given Ativan 2mg IV x1, place the patient on Librium 50mg q6 Ana Cristina, and started the patient on banana beg, to provide thiamin and multiple vitamin, will monitor patient with CIWA protocol. patient remains clinically stable does not show any signs or symptoms or withdrawl, remains in A. Fib uable to anticoagulate due PUD and recent removal o f clonic polyps, Chest x-ray shows pulmonary edema did give low dose IV lasix 20mg, not much urine out put and his Scr calista , consulted online communications manager on 08/27, further recommendation to follow, patient with elevated LFT, long history of alcohol abuse, abdomen US showed single static measurement of the common bile duct is 4 mm, a significant difference from recent CT examination for which MRCP (may be performed without intravenous contrast) is recommended for confirmation. will reconsult GI for further recommendation, will monitor, his is present gave update 09/05/24 Patient was seen and examined at bedside. he is feeling fine, denies any urologic symptoms and states he is urinating well. Review of Systems Review of Systems: All systems reviewed & are unremarkable except as noted in HPI and below Exam Const: General: no acute distress Eyes: General: appearance normal, both eyes and all related structures Resp: Effort & Inspection: normal respiratory effort Skin: General skin exam: normal color Psych: Other: ams Objective Data Vital Signs Vital Signs: Vital Signs - 24 hr 09/04/24 12:00 09/04/24 14:00 09/04/24 16:00 Temperature 97.3 F L Pulse Rate 89 100 92 Respiratory Rate 18 Blood Pressure 126/64 Pulse Oximetry 94 Oxygen Delivery 09/04/24 20:20 09/04/24 20:20 09/04/24 20:36 Temperature Pulse Rate 87 90 Respiratory Rate 16 Blood Pressure 131/81 Pulse Oximetry 93 Oxygen Delivery Room Air 09/04/24 21:55 09/04/24 23:56 09/05/24 00:00 Temperature 98.3 F Pulse Rate 87 96 Respiratory Rate 16 Blood Pressure 131/81 131/81 Pulse Oximetry 93 Oxygen Delivery 09/05/24 04:00 09/05/24 04:00 09/05/24 05:43 Temperature 98.3 F Pulse Rate 94 83 Respiratory Rate 16 Blood Pressure 131/81 126/68 Pulse Oximetry 95 Oxygen Delivery 09/05/24 08:00 09/05/24 08:00 Temperature Pulse Rate 78 Respiratory Rate Blood Pressure Pulse Oximetry 95 Oxygen Delivery Room Air Intake/Output Intake/Output: Intake & Output 09/02/24 09/03/24 09/04/24 09/05/24 23:59 23:59 23:59 23:59 Intake Total 1850 665 960 550 Output Total 2350 1850 2000 [place] -098 -1185 -1040 550 Meds/Results Medications: Active Medications Generic Name Dose Route Start Last Admin Trade Name Carlos PRN Reason Stop Dose Admin Acetaminophen 650 mg 08/26/24 06:26 09/04/24 03:17 Acetaminophen 325 Mg Tablet PO 650 mg Q4H PRN Administration Mild Pain (1-3) or Fever Al Hydrox/Mg Hydrox/Simethicone 30 ml 08/26/24 06:26 Mag Hydrox/Al Hydrox/Simeth 30 Ml Udc PO QID PRN Dyspepsia Amlodipine Besylate 10 mg 08/26/24 09:00 08/28/24 08:48 Amlodipine Besylate 10 Mg Tablet PO Not Given DAILY ANA CRISTINA Bisacodyl 5 mg 08/26/24 06:26 08/30/24 17:22 Bisacodyl 5 Mg Tablet Ec PO 5 mg DAILY PRN Administration Constipation Dextrose 12.5 gm 09/01/24 12:12 Dextrose 50% 25 Gm/50 Ml Syringe IV PUSH PRN PRN Hypoglycemia Protocol Diltiazem HCl 240 mg 09/04/24 12:00 09/05/24 09:40 Diltiazem Hcl Cd 240 Mg Cap.24hr PO 240 mg QAM ANA CRISTINA Administration Empagliflozin 10 mg 09/03/24 09:00 09/05/24 09:40 Empagliflozin 10 Mg Tablet PO 10 mg DAILY ANA CRISTINA Administration Fish Oil 2 gm 08/26/24 09:00 09/05/24 09:41 [place] 3 Polyunsat Fatty Acids 1 Gm Cap PO 2 gm BID ANA CRISTINA Administration Folic Acid 1 mg 08/29/24 12:55 09/05/24 09:40 Folic Acid 1 Mg Tablet PO 1 mg DAILY ANA CRISTINA Administration Furosemide 20 mg 08/26/24 09:00 09/05/24 09:41 Furosemide 20 Mg Tablet PO 20 mg DAILY ANA CRISTINA Administration Glucagon 1 mg 09/01/24 12:12 Glucagon For Inj 1 Mg Vial IM PRN PRN Hypoglycemia Protocol Glucose 15 gm 09/01/24 12:12 Glucose Oral Gel 15 Gm Of Glucse In 37.5 Gm Tube PO PRN PRN Hypoglycemia Protocol Guaifenesin 1,200 mg 08/30/24 21:00 09/05/24 09:41 Guaifenesin 12 Hr 600 Mg Tabcr PO 1,200 mg Q12HR ANA CRISTINA Administration Dextrose 1,000 mls @ 100 mls/hr 09/01/24 12:12 Dextrose 5% 1,000 Ml IVPB PRN PRN Hypoglycemia Protocol Insulin Aspart 1 - 3 units 09/01/24 21:00 09/05/24 01:02 Insulin Aspart (*Bkc) 100 Units/Ml SUB-Q Not Given HS [facility] Protocol Insulin Aspart 3 - 6 units 09/01/24 12:19 09/05/24 07:55 Insulin Aspart (*Bkc) 100 Units/Ml SUB-Q Not Given TIDWM [facility] Protocol Irbesartan 150 mg 08/26/24 09:00 08/28/24 08:48 Irbesartan 150 Mg Tablet PO Not Given DAILY ANA CRISTINA Loperamide HCl 2 mg 09/05/24 09:05 09/05/24 09:41 Loperamide Hcl 2 Mg Capsule PO 2 mg PRN PRN Administration Diarrhea Lovastatin 40 mg 08/26/24 21:00 09/04/24 20:36 Lovastatin 20 Mg Tablet PO 40 mg HS ANA CRISTINA Administration Magnesium Oxide 400 mg 08/26/24 09:00 09/05/24 09:41 Magnesium Oxide 400 Mg Tablet PO 400 mg DAILY ANA CRISTINA Administration Multivitamins Therapeutic 1 tablet 08/26/24 09:00 09/05/24 09:41 Multivitamins Therapeutic Tab (*Bkc) PO 1 tablet DAILY ANA CRISTINA Administration Pantoprazole Sodium 40 mg 08/30/24 21:00 09/05/24 09:41 Pantoprazole Sodium Iv 40 Mg Vial IV PUSH 40 mg Q12HR ANA CRISTINA Administration Potassium Chloride 40 meq 09/03/24 09:00 09/04/24 09:49 Potassium Chloride 20 Meq Packet (For Liquid) PO 40 meq DAILY ANA CRISTINA Administration Prednisone 40 mg 09/04/24 12:00 09/05/24 09:40 Prednisone 20 Mg Tablet PO 40 mg DAILY@0800 ANA CRISTINA Administration Propranolol HCl 120 mg 08/26/24 21:00 09/04/24 20:36 Propranolol Hcl 60 Mg Capsule Cr PO 120 mg HS ANA CRISTINA Administration Sucralfate 1 gm 08/26/24 11:30 09/05/24 05:34 Sucralfate 1 Gm Tablet PO 1 gm ACHS ANA CRISTINA Administration Thiamine HCl 100 mg 08/29/24 12:55 09/05/24 09:41 Thiamine Hcl 100 Mg Tablet PO 100 mg QAM ANA CRISTINA Administration Radiology Results: ITS Impressions Renal Ultrasound 08/28/24 09:25 IMPRESSION: No hydronephrosis or renal calculi. Findings suggesting medical renal disease. Abdomen Ultrasound 08/28/24 11:48 IMPRESSION: Limited evaluation of the pancreas secondary to overlying bowel gas. Trace perihepatic free fluid. Phasic flow within the portal vein. Hepatomegaly. Single static measurement of the common bile duct is 4 mm, a significant difference from recent CT examination for which MRCP (may be performed without intravenous contrast) is recommended for confirmation. Chest CT 08/29/24 18:13 IMPRESSION: 1. Pneumonia involving the right upper and lower lobe. 2. Bilateral pleural effusion more on the right side with adjacent atelectasis versus pneumonia. 3. Tracheobronchomalacia. 4. Cardiomegaly with congestive haley. Venous Doppler Study 08/30/24 13:26 IMPRESSION: 1. No deep venous thrombosis. Modified Barium Swallow 08/30/24 16:58 IMPRESSION: Pharyngeal dysphagia with laryngeal penetration without aspiration. Please correlate with speech pathologist findings and specific feeding recommendations. Chest X-Ray 09/01/24 06:34 Impression: Mild bibasilar pulmonary edema changes with minimal right pleural effusion. Labs Labs: Laboratory Results - last 24 hr 09/04/24 09/04/24 09/04/24 11:28 15:45 16:45 WBC RBC Hgb Hct MCV MCH MCHC RDW Plt Count MPV Sodium Potassium Chloride Carbon Dioxide Anion Gap BUN Creatinine Estim Creat Clear Calc Estimated GFR Glucose POC Capillary Glucose 245 H 138 H Calcium Phosphorus Magnesium Albumin C. difficile (PCR) Negative 09/04/24 09/05/24 09/05/24 20:07 05:45 07:46 WBC 8.8 RBC 2.89 L Hgb 9.7 L Hct 30.7 L MCV 106.2 H MCH 33.6 MCHC 31.6 L RDW 13.2 Plt Count 175 MPV 10.0 Sodium 137 Potassium 3.6 Chloride 99 Carbon Dioxide 34 H Anion Gap 4 BUN 40 H Creatinine 1.12 Estim Creat Clear Calc 76 Estimated GFR > 60 Glucose 113 H POC Capillary Glucose 157 H 163 H Calcium 9.1 Phosphorus 4.2 Magnesium 1.7 Albumin 3.3 L C. difficile (PCR)
[2024-09-05 11:08] LABS: IFOB Positive Control Positive; Immunochemical Fecal Occult Bl Positive (N)
[2024-09-05] MEDS: INSULIN ASPART (*BKC) 100 UNITS/ML SUB-Q (11:46)
--- NOTE | 2024-09-05 13:01 | PM.IMPN ---
Progress Note: A&P Assessment and Plan (1) Acute on chronic diastolic heart failure: Code(s): I50.33 - Acute on chronic diastolic (congestive) heart failure Status: Acute (2) Elevated troponin: Code(s): R79.89 - Other specified abnormal findings of blood chemistry Status: Inactive (3) Demand ischemia: Code(s): I24.89 - Other forms of acute ischemic heart disease Status: Inactive (4) Atrial fibrillation with rapid ventricular response: Code(s): I48.91 - Unspecified atrial fibrillation Status: Inactive (5) CHF (congestive heart failure): Qualifiers: Heart failure chronicity: acute Heart failure type: unspecified Qualified Code(s): I50.9 - Heart failure, unspecified Code(s): I50.9 - Heart failure, unspecified Status: Inactive (6) Alcohol abuse: Code(s): F10.10 - Alcohol abuse, uncomplicated Status: Acute Plan Gi bleed FOBT positive will start PPI monitor H&H Afib with RVR ECHO showed normal EF 60-65% Continue cardizem 90mg Q8, discharge on 240mg daily Patient not on Anticoagulation due to PUD; LAAO outpatient cardiology following Acute hypoxemic respiratory failure, resolved likely from Pneumonia vs COPD Completed abx Pulmonology team on board s/p BiPAP and Vapotherm nighttime oximetry abnormal monitor Pulmonology following Pneumonia CXR reviewed Completed Zosyn and Doxycycline MRSA negative Monitor cultures Elevated troponin Likely demand ischemia PATRICA , baseline normal improving US renal no obstruction Nephrology following Hematuria improved Alcoholic hepatitis with possible Liver cirrhosis Per Gi eval patient qualifies steroid Started prednisone ALT 162/AST 343 , improved GI following Alcohol withdrawal, resolved LAD 7/7 dicscontinue CIWA continue multivitamin monitor Hematuria, resolved urology evaluated and noted it was likely from trauma improving Urology following GI evaluated and noted no significant bile duct dilation, no MRCP recommended DVT prophylaxis on SCDs,heparin Sq Awaiting placement Subjective Date/time seen: 09/05/24 13:01 Interval history: per HPi: ER-HPI Narrative: Patient is a 63-year-old male with known AFib and off his Eliquis at this time for peptic ulcer disease /recent polyp removal here with shortness of breath and a ground level fall at home. EMS was called for a lift assist and further found him to be short of breath and tachycardic and brought him to the emergency room for evaluation. Patient was post have a electric cardioversion of his AFib in the near future. patient was seen by medical assistant supervisor suspect patient has demand ischemia due to A. Fib RVR and does not have ACS, however patient in not on any anticoagulation for the A .fib as patient history of PUD, will consult GI for further recommendation. Patient with history daily 6 drinks and last drinks was 2 days ago and currently patient is in withdrawal, patient is given Ativan 2mg IV x1, place the patient on Librium 50mg q6 Ana Cristina, and started the patient on banana beg, to provide thiamin and multiple vitamin, will monitor patient with CIWA protocol. patient remains clinically stable does not show any signs or symptoms or withdrawl, remains in A. Fib uable to anticoagulate due PUD and recent removal of clonic polyps, Chest x-ray shows pulmonary edema did give low dose IV lasix 20mg, not much urine out put and his Scr calista , consulted wind turbine performance engineer on 08/27, further recommendation to follow, patient with elevated LFT, long history of alcohol abuse, abdomen US showed single static measurement of the common bile duct is 4 mm, a significant difference from recent CT examination for which MRCP (may be performed without intravenous contrast) is recommended for confirmation. will reconsult GI for further recommendation, will monitor, his is present gave update 09/04/24 Patient was seen and examined at bedside. he is feeling fine, denies chest pain, abd pain, N/V . SOB is better. Pending placement/insurance auth.' 09/05/24 PAtient was seen and examined at bedside. he is feeling better. still has diarrhea. C Diff neg per his nurse had episode of bloody stool today. FOBT positive . consulted GI Team Review of Systems Review of Systems: As per HPI Exam Narrative: Morbidly obese Patient is comfortable, NAD HEENT: eyes are clear and none icteric LUNGS: Irregularly irregular tachy HEART: RR S1S2 ABD: BS+, Soft and nontender Lower extremities: no edema SKIN: nonjaundiced Neuro: grossly intact. Objective Data Vital Signs Vital Signs: Vital Signs - 24 hr 09/04/24 14:00 09/04/24 16:00 09/04/24 20:20 Temperature 97.3 F L Pulse Rate 100 92 Respiratory Rate 18 Blood Pressure 126/64 131/81 Pulse Oximetry 94 Oxygen Delivery 09/04/24 20:20 09/04/24 20:36 09/04/24 21:55 Temperature 98.3 F Pulse Rate 87 90 87 Respiratory Rate 16 16 Blood Pressure 131/81 Pulse Oximetry 93 93 Oxygen Delivery Room Air 09/04/24 23:56 09/05/24 00:00 09/05/24 04:00 Temperature Pulse Rate 96 Respiratory Rate Blood Pressure 131/81 131/81 Pulse Oximetry Oxygen Delivery 09/05/24 04:00 09/05/24 05:43 09/05/24 08:00 Temperature 98.3 F Pulse Rate 94 83 Respiratory Rate 16 Blood Pressure 126/68 Pulse Oximetry 95 95 Oxygen Delivery Room Air 09/05/24 08:00 Temperature Pulse Rate 78 Respiratory Rate Blood Pressure Pulse Oximetry Oxygen Delivery Intake/Output Intake/Output: Intake & Output 09/02/24 09/03/24 09/04/24 09/05/24 23:59 23:59 23:59 23:59 Intake Total 1850 665 960 550 Output Total 2350 1850 1517 Balance -817 -1185 -1040 550 Meds/Results Medications: Active Medications Generic Name Dose Route Start Last Admin Trade Name Freq PRN Reason Stop Dose Admin Acetaminophen 650 mg 08/26/24 06:26 09/04/24 03:17 Acetaminophen 325 Mg Tablet PO 650 mg Q4H PRN Administration Mild Pain (1-3) or Fever Al Hydrox/Mg Hydrox/Simethicone 30 ml 08/26/24 06:26 Mag Hydrox/Al Hydrox/Simeth 30 Ml Udc PO QID PRN Dyspepsia Amlodipine Besylate 10 mg 08/26/24 09:00 08/28/24 08:48 Amlodipine Besylate 10 Mg Tablet PO Not Given DAILY ANA CRISTINA Bisacodyl 5 mg 08/26/24 06:26 08/30/24 17:22 Bisacodyl 5 Mg Tablet Ec PO 5 mg DAILY PRN Administration Constipation Dextrose 12.5 gm 09/01/24 12:12 Dextrose 50% 25 Gm/50 Ml Syringe IV PUSH PRN PRN Hypoglycemia Protocol Diltiazem HCl 240 mg 09/04/24 12:00 09/05/24 09:40 Diltiazem Hcl Cd 240 Mg Cap.24hr PO 240 mg QAM ANA CRISTINA Administration Empagliflozin 10 mg 09/03/24 09:00 09/05/24 09:40 Empagliflozin 10 Mg Tablet PO 10 mg DAILY ANA CRISTINA Administration Fish Oil 2 gm 08/26/24 09:00 09/05/24 09:41 [place] 3 Polyunsat Fatty Acids 1 Gm Cap PO 2 gm BID ANA CRISTINA Administration Folic Acid 1 mg 08/29/24 12:55 09/05/24 09:40 Folic Acid 1 Mg Tablet PO 1 mg DAILY ANA CRISTINA Administration Furosemide 20 mg 08/26/24 09:00 09/05/24 09:41 Furosemide 20 Mg Tablet PO 20 mg DAILY ANA CRISTINA Administration Glucagon 1 mg 09/01/24 12:12 Glucagon For Inj 1 Mg Vial IM PRN PRN Hypoglycemia Protocol Glucose 15 gm 09/01/24 12:12 Glucose Oral Gel 15 Gm Of Glucse In 37.5 Gm Tube PO PRN PRN Hypoglycemia Protocol Guaifenesin 1,200 mg 08/30/24 21:00 09/05/24 09:41 Guaifenesin 12 Hr 600 Mg Tabcr PO 1,200 mg Q12HR ANA CRISTINA Administration Dextrose 1,000 mls @ 100 mls/hr 09/01/24 12:12 Dextrose 5% 1,000 Ml IVPB PRN PRN Hypoglycemia Protocol Insulin Aspart 1 - 3 units 09/01/24 21:00 09/05/24 01:02 Insulin Aspart (*Bkc) 100 Units/Ml SUB-Q Not Given HS ANA CRISTINA Protocol Insulin Aspart 3 - 6 units 09/01/24 12:19 09/05/24 11:46 Insulin Aspart (*Bkc) 100 Units/Ml SUB-Q 4 units TIDWM ANA CRISTINA Administration Protocol Irbesartan 150 mg 08/26/24 09:00 08/28/24 08:48 Irbesartan 150 Mg Tablet PO Not Given DAILY ANA CRISTINA Loperamide HCl 2 mg 09/05/24 09:05 09/05/24 09:41 Loperamide Hcl 2 Mg Capsule PO 2 mg PRN PRN Administration Diarrhea Lovastatin 40 mg 08/26/24 21:00 09/04/24 20:36 Lovastatin 20 Mg Tablet PO 40 mg HS ANA CRISTINA Administration Magnesium Oxide 400 mg 08/26/24 09:00 09/05/24 09:41 Magnesium Oxide 400 Mg Tablet PO 400 mg DAILY ANA CRISTINA Administration Multivitamins Therapeutic 1 tablet 08/26/24 09:00 09/05/24 09:41 Multivitamins Therapeutic Tab (*Bkc) PO 1 tablet DAILY ANA CRISTINA Administration Pantoprazole Sodium 40 mg 08/30/24 21:00 09/05/24 09:41 Pantoprazole Sodium Iv 40 Mg Vial IV PUSH 40 mg Q12HR ANA CRISTINA Administration Potassium Chloride 40 meq 09/03/24 09:00 09/04/24 09:49 Potassium Chloride 20 Meq Packet (For Liquid) PO 40 meq DAILY ANA CRISTINA Administration Prednisone 40 mg 09/04/24 12:00 09/05/24 09:40 Prednisone 20 Mg Tablet PO 40 mg DAILY@0800 ANA CRISTINA Administration Propranolol HCl 120 mg 08/26/24 21:00 09/04/24 20:36 Propranolol Hcl 60 Mg Capsule Cr PO 120 mg HS ANA CRISTINA Administration Sucralfate 1 gm 08/26/24 11:30 09/05/24 11:49 Sucralfate 1 Gm Tablet PO 1 gm ACHS ANA CRISTINA Administration Thiamine HCl 100 mg 08/29/24 12:55 09/05/24 09:41 Thiamine Hcl 100 Mg Tablet PO 100 mg QAM ANA CRISTINA Administration Radiology Results: ITS Impressions Renal Ultrasound 08/28/24 09:25 IMPRESSION: No hydronephrosis or renal calculi. Findings suggesting medical renal disease. Abdomen Ultrasound 08/28/24 11:48 IMPRESSION: Limited evaluation of the pancreas secondary to overlying bowel gas. Trace perihepatic free fluid. Phasic flow within the portal vein. Hepatomegaly. Single static measurement of the common bile duct is 4 mm, a significant difference from recent CT examination for which MRCP (may be performed without intravenous contrast) is recommended for confirmation. Chest CT 08/29/24 18:13 IMPRESSION: 1. Pneumonia involving the right upper and lower lobe. 2. Bilateral pleural effusion more on the right side with adjacent atelectasis versus pneumonia. 3. Tracheobronchomalacia. 4. Cardiomegaly with congestive haley. Venous Doppler Study 08/30/24 13:26 IMPRESSION: 1. No deep venous thrombosis. Modified Barium Swallow 08/30/24 16:58 IMPRESSION: Pharyngeal dysphagia with laryngeal penetration without aspiration. Please correlate with speech pathologist findings and specific feeding recommendations. Chest X-Ray 09/01/24 06:34 Impression: Mild bibasilar pulmonary edema changes with minimal right pleural effusion. Labs Labs: Laboratory Results - last 24 hr 09/04/24 09/04/24 09/04/24 15:45 16:45 20:07 WBC RBC Hgb Hct MCV MCH MCHC RDW Plt Count MPV Sodium Potassium Chloride Carbon Dioxide Anion Gap BUN Creatinine Estim Creat Clear Calc Estimated GFR Glucose POC Capillary Glucose 138 H 157 H Calcium Phosphorus Magnesium Albumin Stl Occult Blood (IFOB) C. difficile (PCR) Negative 09/05/24 09/05/24 09/05/24 05:45 07:46 10:22 WBC 8.8 RBC 2.89 L Hgb 9.7 L Hct 30.7 L MCV 106.2 H MCH 33.6 MCHC 31.6 L RDW 13.2 Plt Count 175 MPV 10.0 Sodium 137 Potassium 3.6 Chloride 99 Carbon Dioxide 34 H Anion Gap 4 BUN 40 H Creatinine 1.12 Estim Creat Clear Calc 76 Estimated GFR > 60 Glucose 113 H POC Capillary Glucose 163 H Calcium 9.1 Phosphorus 4.2 Magnesium 1.7 Albumin 3.3 L Stl Occult Blood (IFOB) Positive H C. difficile (PCR) 09/05/24 11:24 WBC RBC Hgb Hct MCV MCH MCHC RDW Plt Count MPV Sodium Potassium Chloride Carbon Dioxide Anion Gap BUN Creatinine Estim Creat Clear Calc Estimated GFR Glucose POC Capillary Glucose 263 H Calcium Phosphorus Magnesium Albumin Stl Occult Blood (IFOB) C. difficile (PCR) Quality VTE Prophylaxis VTE prophylaxis: mechanical ordered
[2024-09-05 13:18] LABS: Hematocrit 31.8 % (42.0-52.0); Hemoglobin 9.9 g/dL (14.0-18.0)
--- NOTE | 2024-09-05 17:42 | WPDGIPROGNO ---
Progress Note: A&P Assessment and Plan (1) Alcoholic hepatitis: Code(s): K70.10 - Alcoholic hepatitis without ascites Status: Acute Assessment and Plan: just started on steroids 2 days ago but most of labs improved including renal function and bili/inr, will repeat labs but given improvement of labs with low Maddrey score probably he does not need steroid anymore (2) Acute on chronic anemia: Code(s): D64.9 - Anemia, unspecified Status: Acute Assessment and Plan: had recent egd and colonoscopy few weeks ago no need to repeat scopes had ulcer- continue with ppi daily (3) Alcohol abuse: Code(s): F10.10 - Alcohol abuse, uncomplicated Status: Acute (4) Acute kidney injury: Code(s): N17.9 - Acute kidney failure, unspecified Status: Acute Assessment and Plan: resolved (5) Pneumonia: Code(s): J18.9 - Pneumonia, unspecified organism Status: Acute (6) Persistent atrial fibrillation: Code(s): I48.19 - Other persistent atrial fibrillation Status: Acute Assessment and Plan: by cardiology (7) Occult blood in stools: Code(s): R19.5 - Other fecal abnormalities Status: Acute Subjective Date/time seen: 09/05/24 17:42 Interval history: we are called again to reassess patient because occult blood in stools (he was evaluated when he was admitted few days ago by Dr Santillan for alcoholic hepatitis) since his renal function normalized, transaminases almost back to normal, also normal inr started 2 days ago on steroids to treat alcoholic hepatitis patient states that had egd and colonoscopy last month, had gastric ulcer. denies overt gib. Review of Systems Review of Systems: All systems reviewed & are unremarkable except as noted in HPI and below Exam Narrative: Morbidly obese Patient is comfortable, NAD neck supple HEENT: eyes are clear and none icteric LUNGS: Irregularly irregular tachy HEART: RR S1S2 ABD: BS+, Soft and nontender Lower extremities: no edema SKIN: nonjaundiced Neuro: grossly intact. psych: normal affect Objective Data Vital Signs Vital Signs: Vital Signs - 24 hr 09/04/24 20:20 09/04/24 20:20 09/04/24 20:36 Temperature Pulse Rate 87 90 Respiratory Rate 16 Blood Pressure 131/81 Pulse Oximetry 93 Oxygen Delivery Room Air 09/04/24 21:55 09/04/24 23:56 09/05/24 00:00 Temperature 98.3 F Pulse Rate 87 96 Respiratory Rate 16 Blood Pressure 131/81 131/81 Pulse Oximetry 93 Oxygen Delivery 09/05/24 04:00 09/05/24 04:00 09/05/24 05:43 Temperature 98.3 F Pulse Rate 94 83 Respiratory Rate 16 Blood Pressure 131/81 126/68 Pulse Oximetry 95 Oxygen Delivery 09/05/24 08:00 09/05/24 08:00 09/05/24 12:00 Temperature Pulse Rate 78 79 Respiratory Rate Blood Pressure Pulse Oximetry 95 Oxygen Delivery Room Air 09/05/24 14:00 09/05/24 16:00 Temperature 97.2 F L Pulse Rate 79 80 Respiratory Rate 16 Blood Pressure 121/68 Pulse Oximetry 95 Oxygen Delivery Intake/Output Intake/Output: Intake & Output 09/02/24 09/03/24 09/04/24 09/05/24 23:59 23:59 23:59 23:59 Intake Total 1850 665 960 790 Output Total 2350 1850 2000 825 Balance -500 -1185 -1040 -35 Meds/Results Medications: Active Medications Generic Name Dose Route Start Last Admin Trade Name Freq PRN Reason Stop Dose Admin Acetaminophen 650 mg 08/26/24 06:26 09/04/24 03:17 Acetaminophen 325 Mg Tablet PO 650 mg Q4H PRN Administration Mild Pain (1-3) or Fever Al Hydrox/Mg Hydrox/Simethicone 30 ml 08/26/24 06:26 Mag Hydrox/Al Hydrox/Simeth 30 Ml Udc PO QID PRN Dyspepsia Amlodipine Besylate 10 mg 08/26/24 09:00 08/28/24 08:48 Amlodipine Besylate 10 Mg Tablet PO Not Given DAILY PA Bisacodyl 5 mg 08/26/24 06:26 08/30/24 17:22 Bisacodyl 5 Mg Tablet Ec PO 5 mg DAILY PRN Administration Constipation Dextrose 12.5 gm 09/01/24 12:12 Dextrose 50% 25 Gm/50 Ml Syringe IV PUSH PRN PRN Hypoglycemia Protocol Diltiazem HCl 240 mg 09/04/24 12:00 09/05/24 09:40 Diltiazem Hcl Cd 240 Mg Cap.24hr PO 240 mg QAM PA Administration Empagliflozin 10 mg 09/03/24 09:00 09/05/24 09:40 Empagliflozin 10 Mg Tablet PO 10 mg DAILY PA Administration Fish Oil 2 gm 08/26/24 09:00 09/05/24 16:25 [place] 3 Polyunsat Fatty Acids 1 Gm Cap PO Not Given BID PA Folic Acid 1 mg 08/29/24 12:55 09/05/24 09:40 Folic Acid 1 Mg Tablet PO 1 mg DAILY PA Administration Furosemide 20 mg 08/26/24 09:00 09/05/24 09:41 Furosemide 20 Mg Tablet PO 20 mg DAILY PA Administration Glucagon 1 mg 09/01/24 12:12 Glucagon For Inj 1 Mg Vial IM PRN PRN Hypoglycemia Protocol Glucose 15 gm 09/01/24 12:12 Glucose Oral Gel 15 Gm Of Glucse In 37.5 Gm Tube PO PRN PRN Hypoglycemia Protocol Guaifenesin 1,200 mg 08/30/24 21:00 09/05/24 09:41 Guaifenesin 12 Hr 600 Mg Tabcr PO 1,200 mg Q12HR PA Administration Dextrose 1,000 mls @ 100 mls/hr 09/01/24 12:12 Dextrose 5% 1,000 Ml IVPB PRN PRN Hypoglycemia Protocol Insulin Aspart 1 - 3 units 09/01/24 21:00 09/05/24 01:02 Insulin Aspart (*Bkc) 100 Units/Ml SUB-Q Not Given HS PA Protocol Insulin Aspart 3 - 6 units 09/01/24 12:19 09/05/24 16:47 Insulin Aspart (*Bkc) 100 Units/Ml SUB-Q Not Given TIDWM PA Protocol Irbesartan 150 mg 08/26/24 09:00 08/28/24 08:48 Irbesartan 150 Mg Tablet PO Not Given DAILY PA Loperamide HCl 2 mg 09/05/24 09:05 09/05/24 16:23 Loperamide Hcl 2 Mg Capsule PO 2 mg PRN PRN Administration Diarrhea Lovastatin 40 mg 08/26/24 21:00 09/04/24 20:36 Lovastatin 20 Mg Tablet PO 40 mg HS PA Administration Magnesium Oxide 400 mg 08/26/24 09:00 09/05/24 09:41 Magnesium Oxide 400 Mg Tablet PO 400 mg DAILY PA Administration Multivitamins Therapeutic 1 tablet 08/26/24 09:00 09/05/24 09:41 Multivitamins Therapeutic Tab (*Bkc) PO 1 tablet DAILY PA Administration Pantoprazole Sodium 40 mg 08/30/24 21:00 09/05/24 09:41 Pantoprazole Sodium Iv 40 Mg Vial IV PUSH 40 mg Q12HR PA Administration Potassium Chloride 40 meq 09/03/24 09:00 09/05/24 16:22 Potassium Chloride 20 Meq Packet (For Liquid) PO 40 meq DAILY PA Administration Prednisone 40 mg 09/04/24 12:00 09/05/24 09:40 Prednisone 20 Mg Tablet PO 40 mg DAILY@0800 PA Administration Propranolol HCl 120 mg 08/26/24 21:00 09/04/24 20:36 Propranolol Hcl 60 Mg Capsule Cr PO 120 mg HS PA Administration Sucralfate 1 gm 08/26/24 11:30 09/05/24 16:23 Sucralfate 1 Gm Tablet PO 1 gm ACHS PA Administration Thiamine HCl 100 mg 08/29/24 12:55 09/05/24 09:41 Thiamine Hcl 100 Mg Tablet PO 100 mg QAM PA Administration Radiology Results: ITS Impressions Renal Ultrasound 08/28/24 09:25 IMPRESSION: No hydronephrosis or renal calculi. Findings suggesting medical renal disease. Abdomen Ultrasound 08/28/24 11:48 IMPRESSION: Limited evaluation of the pancreas secondary to overlying bowel gas. Trace perihepatic free fluid. Phasic flow within the portal vein. Hepatomegaly. Single static measurement of the common bile duct is 4 mm, a significant difference from recent CT examination for which MRCP (may be performed without intravenous contrast) is recommended for confirmation. Chest CT 08/29/24 18:13 IMPRESSION: 1. Pneumonia involving the right upper and lower lobe. 2. Bilateral pleural effusion more on the right side with adjacent atelectasis versus pneumonia. 3. Tracheobronchomalacia. 4. Cardiomegaly with congestive haley. Venous Doppler Study 08/30/24 13:26 IMPRESSION: 1. No deep venous thrombosis. Modified Barium Swallow 08/30/24 16:58 IMPRESSION: Pharyngeal dysphagia with laryngeal penetration without aspiration. Please correlate with speech pathologist findings and specific feeding recommendations. Chest X-Ray 09/01/24 06:34 Impression: Mild bibasilar pulmonary edema changes with minimal right pleural effusion. Labs Labs: Laboratory Results - last 24 hr 09/04/24 09/05/24 09/05/24 20:07 05:45 07:46 WBC 8.8 RBC 2.89 L Hgb 9.7 L Hct 30.7 L MCV 106.2 H MCH 33.6 MCHC 31.6 L RDW 13.2 Plt Count 175 MPV 10.0 Sodium 137 Potassium 3.6 Chloride 99 Carbon Dioxide 34 H Anion Gap 4 BUN 40 H Creatinine 1.12 Estim Creat Clear Calc 76 Estimated GFR > 60 Glucose 113 H POC Capillary Glucose 157 H 163 H Calcium 9.1 Phosphorus 4.2 Magnesium 1.7 Albumin 3.3 L Stl Occult Blood (IFOB) 09/05/24 09/05/24 09/05/24 10:22 11:24 13:12 WBC RBC Hgb 9.9 L Hct 31.8 L MCV MCH MCHC RDW Plt Count MPV Sodium Potassium Chloride Carbon Dioxide Anion Gap BUN Creatinine Estim Creat Clear Calc Estimated GFR Glucose POC Capillary Glucose 263 H Calcium Phosphorus Magnesium Albumin Stl Occult Blood (IFOB) Positive H 09/05/24 16:38 WBC RBC Hgb Hct MCV MCH MCHC RDW Plt Count MPV Sodium Potassium Chloride Carbon Dioxide Anion Gap BUN Creatinine Estim Creat Clear Calc Estimated GFR Glucose POC Capillary Glucose 118 H Calcium Phosphorus Magnesium Albumin Stl Occult Blood (IFOB)
[2024-09-05] MEDS: LOVASTATIN 20 MG TABLET 40 MG PO (21:57)
[2024-09-05] MEDS: PROPRANOLOL HCL 60 MG CAPSULE CR 120 MG PO (21:57)
[2024-09-06] VITALS: PULSE 79
[2024-09-06 04:00] VITALS: PULSE 79
[2024-09-06] MEDS: SUCRALFATE 1 GM TABLET PO (05:49)
[2024-09-06 06:00] VITALS: BP 126/66; PULSE 79; RESP 20; TEMP 35.7; O2SAT 92
[2024-09-06 06:30] LABS: Hematocrit 30.1 % (42.0-52.0); Hemoglobin 9.5 g/dL (14.0-18.0); Mean Corpuscular HGB Conc 31.6 g/dl (32-36); Mean Corpuscular Hemoglobin 33.3 pg (26-34); Mean Corpuscular Volume 105.6 fl (80-100); Platelet Count Result 182 k/mm3 (150-375); Red Blood Count 2.85 M/mm3 (4.6-6.20); White Blood Count 11.3 K/mm3 (4.5-10.0)
[2024-09-06 06:42] LABS: INR 1.3; Prothrombin Time 16.1 Seconds (11.1-14.7)
[2024-09-06 06:57] LABS: Alanine Aminotransferase 62 U/L (6-50); Albumin Level 3.1 g/dL (3.5-5.1); Alkaline Phosphatase 58 U/L (38-126); Anion Gap 5 mmol/L (4-12); Aspartate Amino Transferase 62 U/L (17-59); Bilirubin,Total 1.0 mg/dL (0.2-1.3); Blood Urea Nitrogen 34 mg/dL (9-20); Calcium 8.9 mg/dL (8.4-10.2); Carbon Dioxide 30 mmol/L (22-30); Chloride 101 mmol/L (98-107); Estimated CRCL calculation 78 ml/min; Estimated Glomerular Filt Rate > 60; Glucose 88 mg/dL (65-110); Magnesium 1.5 mg/dL (1.6-2.3); Potassium 4.0 mmol/L (3.4-5.0); Sodium 136 mmol/L (137-145); Total Protein 6.4 g/dL (6.3-8.2)
[2024-09-06] MEDS: OMEGA 3 POLYUNSAT FATTY ACIDS 1 GM CAP 2 GM PO (08:53)
[2024-09-06] MEDS: dilTIAZem HCL CD 240 MG CAP.24HR PO (08:53)
[2024-09-06 08:54] VITALS: PULSE 73
[2024-09-06] MEDS: MULTIVITAMINS THERAPEUTIC TAB (*BKC) 1 TABLET PO (08:54)
[2024-09-06] MEDS: THIAMINE HCL 100 MG TABLET PO (08:54)
[2024-09-06] MEDS: FUROSEMIDE 20 MG TABLET PO (08:54)
[2024-09-06] MEDS: FOLIC ACID 1 MG TABLET PO (08:54)
[2024-09-06] MEDS: EMPAGLIFLOZIN 10 MG TABLET PO (08:54)
[2024-09-06] MEDS: guaiFENesin 12 HR 600 MG TABCR 1200 MG PO (08:54)
[2024-09-06] MEDS: MAGNESIUM OXIDE 400 MG TABLET PO (08:55)
[2024-09-06] MEDS: PANTOPRAZOLE SODIUM IV 40 MG VIAL IV PUSH (08:55)
[2024-09-06] MEDS: POTASSIUM CHLORIDE 20 MEQ PACKET (FOR LIQUID) 40 MEQ PO (08:58)
[2024-09-06] MEDS: LOPERAMIDE HCL 2 MG CAPSULE PO (09:04)
--- NOTE | 2024-09-06 09:08 | PM.EVENT ---
Event Note Event Note Event Note: Kidney function is normal. Renal will sign off.
[2024-09-06] MEDS: MAGNESIUM SULF 2 GM/WATER 50ML 2 GM/50 ML BAG IVPB (10:09)
--- NOTE | 2024-09-06 10:24 | PM.DS ---
DS: Admitting Diagnosis Discharge Date 09/06/24 Admitting Diagnosis fall, afib rvr. resp failure DS: Discharge Diagnosis Discharge Diagnosis (1) Acute on chronic diastolic heart failure: Code(s): I50.33 - Acute on chronic diastolic (congestive) heart failure Status: Acute (2) Elevated troponin: Code(s): R79.89 - Other specified abnormal findings of blood chemistry Status: Inactive (3) Demand ischemia: Code(s): I24.89 - Other forms of acute ischemic heart disease Status: Inactive (4) Atrial fibrillation with rapid ventricular response: Code(s): I48.91 - Unspecified atrial fibrillation Status: Inactive (5) CHF (congestive heart failure): Qualifiers: Heart failure chronicity: acute Heart failure type: unspecified Qualified Code(s): I50.9 - Heart failure, unspecified Code(s): I50.9 - Heart failure, unspecified Status: Inactive (6) Alcohol abuse: Code(s): F10.10 - Alcohol abuse, uncomplicated Status: Acute Plan Gi bleed FOBT positive on PPI improved. Ismael hadley had recent EGD/COlonoscopy GI team on board no plan for intervention monitor H&H Afib with RVR ECHO showed normal EF 60-65% Continue cardizem 90mg Q8, discharge on 240mg daily Patient not on Anticoagulation due to PUD; LAAO outpatient cardiology following Acute hypoxemic respiratory failure, resolved likely from Pneumonia vs COPD Completed abx Pulmonology team on board s/p BiPAP and Vapotherm nighttime oximetry abnormal monitor Pulmonology following :Oxygen at night per care home facility protocol. Overnight oximetry on room air with hypoxemia and I recommend 2 L nasal cannula Pneumonia CXR reviewed Completed Zosyn and Doxycycline MRSA negative Monitor cultures Elevated troponin Likely demand ischemia PATRICA , baseline normal improving US renal no obstruction Nephrology following Hematuria improved Alcoholic hepatitis with possible Liver cirrhosis Per Gi eval patient qualifies steroid Started prednisone ALT 162/AST 343 , improved GI following Alcohol withdrawal, resolved LAD 08/26 dicscontinue CIWA continue multivitamin monitor Hematuria, resolved urology evaluated and noted it was likely from trauma improving Urology following GI evaluated and noted no significant bile duct dilation, no MRCP recommended DVT prophylaxis on SCDs,heparin Sq Awaiting placement DS: Summary Hospital Course Hospital Course: per HPi: ER-HPI Narrative: Patient is a 63-year-old male with known AFib and off his Eliquis at this time for peptic ulcer disease /recent polyp removal here with shortness of breath and a ground level fall at home. EMS was called for a lift assist and further found him to be short of breath and tachycardic and brought him to the emergency room for evaluation. Patient was post have a electric cardioversion of his AFib in the near future. patient was seen by nuts and bolts assembler suspect patient has demand ischemia due to A. Fib RVR and does not have ACS, however patient in not on any anticoagulation for the A .fib as patient history of PUD, will consult GI for further recommendation. Patient with history daily 6 drinks and last drinks was 2 days ago and currently patient is in withdrawal, patient is given Ativan 2mg IV x1, place the patient on Librium 50mg q6 Ana Cristina, and started the patient on banana beg, to provide thiamin and multiple vitamin, will monitor patient with CIWA protocol. patient remains clinically stable does not show any signs or symptoms or withdrawl, remains in A. Fib uable to anticoagulate due PUD and recent removal of clonic polyps, Chest x-ray shows pulmonary edema did give low dose IV lasix 20mg, not much urine out put and his Scr calista , consulted software security architect on 08/27, further recommendation to follow, patient with elevated LFT, long history of alcohol abuse, abdomen US showed single static measurement of the common bile duct is 4 mm, a significant difference from recent CT examination for which MRCP (may be performed without intravenous contrast) is recommended for confirmation. will reconsult GI for further recommendation, will monitor, his is present gave update 09/06/24 patient was een and examiend at bedside she is feeling fine deneis any chest pain, abd pain, N?V. diarrhea improving. will discharge patient to the rehab during this admission: patient had AFib with RVR also elevated troponin likely den=anton ischemia in setting of AFIb. cardiology team was consulted initially on Cardizem drip but switched to po. heart rate under control. patient had respiratory failure and pneumonia. has been treated with zosyn and doxycycline has liver cirrhosis. Gi on board. received iV solumedrol which changed to prednisone and discontinued today. patient had diarrhea 3 days ago. Cdiff neg. started on Imodium. had one episode of GI bleed. Gi team was consulted. patient recently had EGD and colonoscopy. started on PPI. no more bleeding and Hb stable. Status at Discharge Overall status at discharge: patient is progressing back to baseline Time Spent with Patient Time attestation: Total time spent providing and/or coordinating discharge services: Time spent: Greater than 30 minutes Exam Narrative: Morbidly obese Patient is comfortable, NAD HEENT: eyes are clear and none icteric LUNGS: Irregularly irregular tachy HEART: RR S1S2 ABD: BS+, Soft and nontender Lower extremities: no edema SKIN: nonjaundiced Neuro: grossly intact. DS: Data Data Completed and Pending Labs on day of discharge: Labs from last 24 hours 09/06/24 09/06/24 09/05/24 07:43 06:07 19:52 WBC 11.3 H RBC 2.85 L Hgb 9.5 L Hct 30.1 L MCV 105.6 H MCH 33.3 MCHC 31.6 L RDW 13.1 Plt Count 182 MPV 9.6 PT 16.1 H INR 1.3 Sodium 136 L Potassium 4.0 Chloride 101 Carbon Dioxide 30 Anion Gap 5 BUN 34 H Creatinine 1.07 Estim Creat Clear Calc 78 Estimated GFR > 60 Glucose 88 POC Capillary Glucose 90 136 H Calcium 8.9 Phosphorus 3.8 Magnesium 1.5 L Total Bilirubin 1.0 AST 62 H ALT 62 H Alkaline Phosphatase 58 Total Protein 6.4 Albumin 3.1 L Stl Occult Blood (IFOB) 09/05/24 09/05/24 09/05/24 16:38 13:12 11:24 WBC RBC Hgb 9.9 L Hct 31.8 L MCV MCH MCHC RDW Plt Count MPV PT INR Sodium Potassium Chloride Carbon Dioxide Anion Gap BUN Creatinine Estim Creat Clear Calc Estimated GFR Glucose POC Capillary Glucose 118 H 263 H Calcium Phosphorus Magnesium Total Bilirubin AST ALT Alkaline Phosphatase Total Protein Albumin Stl Occult Blood (IFOB) 09/05/24 10:22 WBC RBC Hgb Hct MCV MCH MCHC RDW Plt Count MPV PT INR Sodium Potassium Chloride Carbon Dioxide Anion Gap BUN Creatinine Estim Creat Clear Calc Estimated GFR Glucose POC Capillary Glucose Calcium Phosphorus Magnesium Total Bilirubin AST ALT Alkaline Phosphatase Total Protein Albumin Stl Occult Blood (IFOB) Positive H Discharge Plan Discharge Attending physician on discharge: Lupe Clemens Consulting providers: Taylor Geiger; Capo Camargo; Niranjan Kelly; Alex Barry; Isai Jones; Lupe Clemens; Bobo Herbert Discharging Clinician: Lupe Clemens Anticipated Discharge Date/Time: 09/06/24 10:28 Patient Disposition: Hospital Swing Bed Activity: as tolerated Diet: heart healthy Discharge Instructions: follow with Dr. Arreola -continue propranolol and diltiazem on discharge -stop hydrochlorothiazide -continue Lasix 20 mg p.o. daily and Jardiance 10 p.o. daily follow with Gi clinic as outpatient follow with urology as needed follow with pulmonary team as outpatient Oxygen at night per care home facility protocol. Overnight oximetry on room air with hypoxemia and I recommend 2 L nasal cannula Patient Instructions: Antibiotic Form Patient Language: Czech Stand Alone Forms: General Discharge Information Follow-up/Referrals: Alex Barry MD [Physician] - Call for Appointment Leodan Rojo MD [Physician] - Call for Appointment Kel Hope MD [Primary Care Provider] - 1 Week Niranjan Kelly MD [Physician] - Call for Appointment Capo Camargo MD [Physician] - Call for Appointment Bobo Herbert MD [Physician] - Call for Appointment Discharge Medications: New diltiazem HCl 240 mg Capsule,Ext.Rel 24h Degradable 240 mg PO QAM Qty: 30 0RF thiamine HCl (vitamin B1) [Vitamin B-1] 100 mg Tablet 100 mg PO QAM Qty: 30 0RF potassium chloride 20 mEq Packet 40 meq PO DAILY Qty: 7 0RF folic acid 1 mg Tablet 1 mg PO DAILY 30 Days Qty: 30 0RF Jardiance 10 mg Tablet 10 mg PO DAILY Qty: 30 0RF Continued amlodipine 10 mg tablet 10 mg PO DAILY irbesartan 150 mg tablet 150 mg PO DAILY furosemide 20 mg tablet 20 mg PO DAILY propranolol 120 mg capsule,extended release 24 hr 120 mg PO HS sucralfate 1 gram tablet 1 g PO .with meals and HS pantoprazole 40 mg tablet,delayed release (DR/EC) 40 mg PO BID lovastatin 40 mg tablet 40 mg PO HS magnesium 200 mg tablet 400 mg PO DAILY aspirin [Adult Aspirin Regimen] 81 mg tablet,delayed release (DR/EC) 81 mg PO DAILY Fish Oil 100-160-1,000 mg capsule 2 cap PO BID multivitamin [Daily Multi-Vitamin] Tablet 1 tablet PO DAILY Discontinued hydrochlorothiazide 25 mg tablet 25 mg PO DAILY doxycycline monohydrate 50 mg capsule 50 mg PO DAILY Date of admission: 08/27/24 18:33 Primary Care Provider: Kel Hope Admitting Provider: Johana Thompson Attending physician on admission: Johana Thompson Condition: Stable Quality VTE Prophylaxis VTE prophylaxis: mechanical ordered
--- NOTE | 2024-10-19 06:40 | PM.IMPN ---
Progress Note: A&P Assessment and Plan (1) Acute on chronic diastolic heart failure: Code(s): I50.33 - Acute on chronic diastolic (congestive) heart failure Status: Acute (2) Atrial fibrillation with rapid ventricular response: Code(s): I48.91 - Unspecified atrial fibrillation Status: Acute Plan Upon arrival patient was in a. fib RVR and was started on diltiazem drip, rate is trending down, seen cardiology and started patient on short acting diltiazem and once his rate is controlled, will start a long acting diltiazem, patient is not anticoagulated due history of PUD and recent polyps removal has high risk of bleeding, patient with history of alcohol abuse on CIWA protocol, does not show any sign or symptoms of DT. Subjective Date/time seen: 08/27/24 06:40 Interval history: ER-HPI Narrative: Patient is a 63-year-old male with known AFib and off his Eliquis at this time for peptic ulcer disease /recent polyp removal here with shortness of breath and a ground level fall at home. EMS was called for a lift assist and further found him to be short of breath and tachycardic and brought him to the emergency room for evaluation. Patient was post have a electric cardioversion of his AFib in the near future. patient was seen by key account representative suspect patient has demand ischemia due to A. Fib RVR and does not have ACS, however patient in not on any anticoagulation for the A .fib as patient history of PUD, will consult GI for further recommendation. Patient with history daily 6 drinks and last drinks was 2 days ago and currently patient is in withdrawal, patient is given Ativan 2mg IV x1, place the patient on Librium 50mg q6 Ana Cristina, and started the patient on banana beg, to provide thiamin and multiple vitamin, will monitor patient with CIWA protocol. Upon arrival patient was in a. fib RVR and was started on diltiazem drip, rate is trending down, seen cardiology and started patient on short acting diltiazem and once his rate is controlled, will start a long acting diltiazem, patient is not anticoagulated due history of PUD and recent polyps removal has high risk of bleeding, patient with history of alcohol abuse on CIWA protocol, does not show any sign or symptoms of DT. Exam Narrative: Morbidly obese Patient is comfortable, NAD HEENT: eyes are clear and none icteric LUNGS: Irregularly irregular tachy HEART: RR S1S2 ABD: BS+, Soft and nontender Lower extremities: no edema SKIN: nonjaundiced Neuro: grossly intact. Objective Data Meds/Results Radiology Results: ITS Impressions Renal Ultrasound 08/28/24 09:25 IMPRESSION: No hydronephrosis or renal calculi. Findings suggesting medical renal disease. Abdomen Ultrasound 08/28/24 11:48 IMPRESSION: Limited evaluation of the pancreas secondary to overlying bowel gas. Trace perihepatic free fluid. Phasic flow within the portal vein. Hepatomegaly. Single static measurement of the common bile duct is 4 mm, a significant difference from recent CT examination for which MRCP (may be performed without intravenous contrast) is recommended for confirmation. Chest CT 08/29/24 18:13 IMPRESSION: 1. Pneumonia involving the right upper and lower lobe. 2. Bilateral pleural effusion more on the right side with adjacent atelectasis versus pneumonia. 3. Tracheobronchomalacia. 4. Cardiomegaly with congestive haley. Venous Doppler Study 08/30/24 13:26 IMPRESSION: 1. No deep venous thrombosis. Modified Barium Swallow 08/30/24 16:58 IMPRESSION: Pharyngeal dysphagia with laryngeal penetration without aspiration. Please correlate with speech pathologist findings and specific feeding recommendations. Chest X-Ray 09/01/24 06:34 Impression: Mild bibasilar pulmonary edema changes with minimal right pleural effusion.
== END 2024-09-06 11:55 | disposition swing bed (61) | DRG 308 ==
LOC: ANHIMU 09-03 07:10 → ANH3MEDSUR 09-03 17:38
PROVIDERS: Family Medicine; Internal Medicine; Internal Medicine Gastroenterology; Internal Medicine Interventional Cardiology; Internal Medicine Nephrology; Internal Medicine Pulmonary Disease; Student in an Organized Health Care Education/Training Program; Admitting Provider Internal Medicine; PCP Internal Medicine; Visit Provider Internal Medicine
DX: I48.19 Other persistent atrial fibrillation (principal); I50.33 Acute on chronic diastolic (congestive) heart failure; J18.9 Pneumonia, unspecified organism; J96.92 Respiratory failure, unspecified with hypercapnia; J96.01 Acute respiratory failure with hypoxia; F10.139 Alcohol abuse with withdrawal, unspecified; I24.89 Other forms of acute ischemic heart disease; N17.9 Acute kidney failure, unspecified; F33.1 Major depressive disorder, recurrent, moderate; R31.0 Gross hematuria; R19.7 Diarrhea, unspecified; D64.9 Anemia, unspecified; E83.41 Hypermagnesemia; I11.0 Hypertensive heart disease with heart failure; K70.30 Alcoholic cirrhosis of liver without ascites; K21.9 Gastro-esophageal reflux disease without esophagitis; W18.30XA Fall on same level, unspecified, initial encounter; Z87.11 Personal history of peptic ulcer disease; Z87.891 Personal history of nicotine dependence; Z79.82 Long term (current) use of aspirin; Z20.822 Contact with and (suspected) exposure to COVID-19; Z79.84 Long term (current) use of oral hypoglycemic drugs
CPT/HCPCS: 36415; 36600; 71045; 71250; 74230; 76705; 76775; 80048; 80053; 80069; 80076; 81050; 82140; 82274; 82375; 82550; 82570; 82805; 82948; 83050; 83605; 83690; 83735; 83880; 84100; 84145; 84156; 84300; 84439; 84443; 84484; 84540; 85014; 85018; 85025; 85027; 85055; 85610; 85999; 86706; 86738; 87340; 87493; 87637; 87641; 92610; 92611; 93970; 94002; 94003; 94640; 94762; 96374; 96375; 96376; 97110; 97162; 97165; 97530; A9270; C8929; G0378; G0379; J1163; J1815; J1938; J2060; J2470; J2543; J2919; J3411; J3475; J7030; J7512; Q9957

== ENCOUNTER 2024-09-06 12:35 | Inpatient (IN) | payer MEDICARE, SELFPAY ==
--- OUTSIDE RECORDS SUMMARY | 2024-09-06 12:39 | XMS_ITS | Clinical Summary ---
Author Organization [facility] Address [address] [place] [address] Care Team Providers Care Core Stripper Name Role Phone Unavailable Primary Care Provider [...] Virus (HCV) Screening 1960 TdaP Immunization 1960 Cologuard 09/19/2004 Colonoscopy 09/19/2004 Colorectal Cancer Screening 09/19/2004 Immunochemical Fecal Occult Blood 09/19/2004 Pneumococcal Immunization (5 0+ years) (1 of 1 - PCV) 09/19/2009 Zoster Immunization (1 of 2) 09/19/2009 SARS-COV-2 Immunization (4 - season) 2023 12/25/2020, 04/24/2020, 03/27/2020 Influenza Immunization (#1) 2024 03/16/2020 Respiratory Syncytial Virus (RSV) Immunization [...]
--- OUTSIDE RECORDS SUMMARY | 2024-09-06 12:39 | XMS_ITS | Clinical Summary ---
Author Organization [facility] [address] [facility] [address] Address [address] [place] [address] Care Team Providers Care Aerospace Physiological Technician Name Role Phone Kel Hope MD Primary Care Provider [phone] Allergies Active Allergy Reactions Criticality Noted Date Comments Ambler-3 Fatty Acids Other (See comments) 2024 Indigestion [...] Encounters Date Type Department Care Team Description 09/05/2024 Orders Only [facility] Cardiology [address] [place] [address] [place] [phone] Leodan Rojo MD 09/03/2024 Orders Only [facility] Medical [facility] [address] [place] [address] [place] [phone] Taylor Geiger MD 09/02/2024 Telephone [facility] Cardiology at [address] [place] [address] Leodan Rojo MD 08/30/2024 Orders Only [facility] Medical [facility] Cardiology [address] [place] [address] [place] [phone] Taylor Geiger MD 08/27/2024 Telephone [facility] Medical [facility] Cardiology [address] [place] [address] [place] [phone] Ryan De Los Santos MD 07/29/2024 11:00 AM CDT Ancillary Procedure [facility] Cardiology at [address] [place] [address] Paroxysmal atrial fibrillation (HCC) 07/29/2024 10:30 AM CDT Office Visit [facility] Cardiology at [address] [place] [address] Ryan De Los Santos MD Bilateral lower extremity edema (Primary Dx); DANIEL (obstructive sleep apnea); Paroxysmal atrial fibrillation (HCC); Essential hypertension; Mixed hyperlipidemia; Morbid obesity with BMI of 40.0-44.9, adult (HCC); Alcohol abuse; Cardiomyopathy, unspecified type (HCC); Systolic congestive heart failure, unspecified HF chronicity (HCC) 07/26/2024 Telephone [facility] Cardiology [address] [place] [address] Ryan De Los Santos MD 07/10/2024 Telephone [facility] Cardiology [address] [place] [address] Ryan De Los Santos MD 07/04/2024 Orders Only [facility] Health Information Management [address] [place] [id number] Scanning, Provider 06/28/2024 3:00 PM CDT Ancillary Procedure [facility] Cardiology at [address] [place] [address] Atrial fibrillation, unspecified type (HCC); Essential hypertension; Bilateral lower extremity edema 06/27/2024 Telephone [facility] Cardiology [address] [facility] [address] [place] [address] Ryan De Los Santos MD 06/19/2024 10:15 AM CDT Office Visit [facility] Cardiology at [address] [place] [address] Ryan De Los Santos MD Essential hypertension [...] 2023-2 5 season) 2023 12/25/2020 Influenza Vaccine (#1) 2024 Pneumococcal vaccine <65 Aged Out No longer eligible based on patient's age to complete this topic Procedures Procedure Name Priority Date/Time Associated Diagnosis Comments CARDIOLOGY DOCUMENT SCAN Routine 09/04/2024 2:56 PM CDT CARDIOLOGY DOCUMENT SCAN Routine 09/02/2024 5:59 PM CDT CARDIOLOGY DOCUMENT SCAN Routine 08/29/2024 5:57 PM CDT CARDIOLOGY DOCUMENT SCAN Routine 08/29/2024 2:34 PM CDT CARDIOLOGY DOCUMENT SCAN Routine 08/27/2024 2:31 PM CDT CARDIOLOGY DOCUMENT SCAN Routine 08/26/2024 2:15 PM CDT HOLTER MONITOR 48 HR Routine 07/29/2024 12:28 [...] (HCC) from Last 3 Months Results * Cardiology Document Scan (09/04/2024 2:56 PM CDT) Anatomical Region Laterality Modality Other Result Lesli Rojo MD CV CARDIAC SERVICES PROCEDURES F inal Result * Cardiology Document Scan (09/02/2024 5:59 PM CDT) Anatomical Region Laterality Modality Other Result Lesli Rojo MD CV CARDIAC SERVICES PROCEDURES F inal Result * Cardiology Document Scan (08/29/2024 5:57 PM CDT) Anatomical Region Laterality Modality Other Result Lesli Geiger MD CV CARDIAC SERVICES PROCEDU RES Final Result * Cardiology Document Scan (08/29/2024 2:34 PM CDT) Anatomical Region Laterality Modality Other Result Lesli Geiger MD CV CARDIAC SERVICES PROCEDU RES Final Result * Cardiology Document Scan (08/27/2024 2:31 PM CDT) Anatomical Region Laterality Modality Other Result Lesli Geiger MD CV CARDIAC SERVICES PROCEDU RES Final Result * Cardiology Document Scan (08/26/2024 2:15 PM CDT) Anatomical Region Laterality Modality Other Result Lesli Geiger MD CV CARDIAC SERVICES PROCEDU RES Final Result * 48 HR Holter Monitor (07/29/2024 12:28 PM CDT) Anatomical Region Laterality Modality Electrocardiogra phy Narrative 08/02/2024 3:32 PM CDT AMBULATORY WET INSPECTOR OPTICAL GLASS REPORT Patient Name: Yajaira Franz Date of [...] was used to complete this document, therefore, director of health education variances may occur. Ryan De Los Santos MD, [facility] 08/02/24 Ryan De Los Santos MD CV CARDIAC SERVICES [facility] Final Result * POCT lipid panel (07/29/2024 [...] PM CDT Narrative 06/29/2024 10:46 AM CDT [facility] Medical [facility] Cardiology [address] , [address], [place] [address] P:[phone] P:[phone] Echocardiographic Report Patient Name: YAJAIRA FRANZ : [...] FINDINGS: Interpretation Site: Exam was interpreted at [facility]. Left Ventricle: Mild concentric left ventricular [...] minute. Electronically Signed By: Dr. Jomar Ayala [facility] 06/29/2024 10:45:44 AM CDT Procedure Note Jomar Ayala MD - 06/29/2024 [facility] Medical [facility] Cardiology [address] [facility], [address], [place] [address] P:[phone] P:[phone] Echocardiographic Report Patient Name: YAJAIRA FRANZ : [...] FINDINGS: Interpretation Site: Exam was interpreted at [facility] [place]. Left Ventricle: Mild concentric left ventricular [...] minute. Electronically Signed By: Dr. Jomar Ayala [facility] 06/29/2024 10:45:44 AM CDT Ryan De Los Santos MD CV ECHO PROCEDURES Final Result * ECG 12 lead (06/19/2024 3:35 PM CDT) Ryan De Los Santos MD ECG ORDERABLES Final Res ult from Last 3 Months [place] [address] [employer] MED[employer]ARE Care Teams Aerospace Physiological Technician Relationship Specialty Start Date End Date Kel Hope MD [address] [phone] PCP - General Internal Medicine 06/07/24
--- OUTSIDE RECORDS SUMMARY | 2024-09-06 12:39 | XMS_ITS | Encounter Summary ---
Author Organization [facility] Address [facility] [place] [address] Care Team Providers Care Assistant Womens Volleyball Coach Name Role Phone Raysa Miguel MD Primary Care Provider [phone] Jonna Moss [facility]- Unavailable Regan Lam MD Unavailable [phone] Shahid Mansfield MD Unavailable [phone] Encounter Details Date Type Department Care Team (Late st Contact Info) Description 05/31/2021 Abstract [facility]-[address] [place] [address] [address] [place] [address] Abstract, Doc Prevea Social History Tobacco Use [...] medication documented in this encounter Care Teams Assistant Womens Volleyball Coach Relationship Specialty Start Date End Date [place] [address] PCP - General FAMILY PRACTICE 04/22/16 Jonna Moss, BONDING MACHINE SETTER[place] [phone] NURSE PRACTITIONER 04/22/16 [place] [phone] CARDIOVASCULAR DISEASE 04/22/16 Shahid Mansfield MD [address] [place] [id number] ORTHOPAEDIC SURGERY 04/22/16 documented as of this encounter
--- OUTSIDE RECORDS SUMMARY | 2024-09-06 12:39 | XMS_ITS | Referral Summary ---
Author Organization [place] [address] [place] [phone] Care Team Providers Care Horse Show Judge Name Role Phone Kel Hope MD Primary Care Provider Encounters Date Type Department Care Team Description 09/05/[address] [facility] Medical Group Cardiology [address] [place] [address] [address] [place] [address] Leodan Rojo MD 09/03/[address] [facility] Medical [facility] [address] [place] [address] [place] [address] Taylor Geiger MD 09/02/[address] [facility] Medical Group Cardiology at [address] [place] [address] Leodan Rojo MD 08/30/[address] [facility] Medical [facility] [address] [place] [address] [place] [address] Taylor Geiger MD 08/27/[address] [facility] Medical [facility] [address] [place] [address] [place] [phone] Ryan De Los Santos MD 07/29/2024 11:00 AM CDT Ancillary Procedure [facility] Medical Group Cardiology at [address] [place] [address] Paroxysmal atrial fibrillation (HCC) 07/29/2024 10:30 AM CDT Office Visit [facility] Medical Group Cardiology at [address] [place] [phone] Ryan De Los Santos MD Bilateral lower extremity edema (Primary Dx); DANIEL (obstructive sleep apnea); Paroxysmal atrial fibrillation (HCC); Essential hypertension; Mixed hyperlipidemia; Morbid obesity with BMI of 40.0-44.9, adult (HCC); Alcohol abuse; Cardiomyopathy, unspecified type (HCC); Systolic congestive heart failure, unspecified HF chronicity (HCC) 07/26/2024 Telephone [facility] Cardiology [address] [facility] [address] [place] [address] Ryan De Los Santos MD 07/10/2024 Telephone [facility] Cardiology [address] [facility] [address] [place] [address] Ryan De Los Santos MD 07/04/2024 Orders Only [facility] Health Information Management [address] [place] [address] Scanning, Provider 06/28/2024 3:00 PM CDT Ancillary Procedure [facility] Cardiology at [address] [place] [address] Atrial fibrillation, unspecified type (HCC); Essential hypertension; Bilateral lower extremity edema 06/27/2024 Telephone [facility] Cardiology [address] [facility] [address] [place] [phone] Ryan De Los Santos MD 06/19/2024 10:15 AM CDT Office Visit [facility] Medical Group Cardiology at [address] [place] [address] Ryan De Los Santos MD Essential hypertension (Primary Dx); Atrial fibrillation, unspecified type (HCC); Mixed hyperlipidemia; Morbid obesity with BMI of 40.0-44.9, adult (HCC); Morbid obesity (HCC); Bilateral lower extremity edema; DANIEL (obstructive sleep apnea); Alcohol abuse from Last 3 Months Allergies Active Allergy Reactions Criticality Noted Date Comments [place]-3 Fatty Acids Other (See comments) 2024 Indigestion [...] mouth daily 90 tablet 3 5 07/30/19 Active Active Problems Problem Noted Date Diagnosed [...] PM CDT) Anatomical Region Laterality Modality Other us Leodan Rojo MD [facility] CARDIAC SERVICES PROCEDURES F inal Result * Cardiology Document Scan (09/02/2024 5:59 PM CDT) Anatomical Region Laterality Modality Other us Leodan Rojo MD CV CARDIAC SERVICES PROCEDURES F inal Result * Cardiology Document Scan (08/29/2024 5:57 PM CDT) Anatomical Region Laterality Modality Other us Taylor Geiger MD CV CARDIAC SERVICES PROCEDU RES Final Result * Cardiology Document Scan (08/29/2024 2:34 PM CDT) Anatomical Region Laterality Modality Other Result [facility] us Taylor Geiger MD CV CARDIAC SERVICES PROCEDU RES Final Result * Cardiology Document Scan (08/27/2024 2:31 PM CDT) Anatomical Region Laterality Modality Other us Taylor Geiger MD CV CARDIAC SERVICES PROCEDU RES Final Result * Cardiology Document Scan (08/26/2024 2:15 PM CDT) Anatomical Region Laterality Modality Other us Taylor Geiger MD CV CARDIAC SERVICES PROCEDU RES Final Result * 48 HR Holter Monitor (07/29/2024 12:28 PM CDT) Anatomical Region Laterality Modality Electrocardiogra phy Narrative 08/02/2024 3:32 PM CDT AMBULATORY HELIARC WELDER REPORT Patient Name: Yajaira Franz Date of [...] was used to complete this document, therefore, game and fish protector variances may occur. Ryan De Los Santos MD, [facility] 08/02/24 Ryan De Los Santos [...] Complete W Doppler/CF (06/28/2024 2:52 PM CDT) Pathologist [facility] EF Mod BP 45 % CONS SCIMAGE Anatomical Region Laterality Modality Ultrasound 06/28/2024 2:52 PM CDT Narrative 06/29/2024 10:[address] [facility] Medical Group Cardiology [address] [facility], [address], [place] [address] P:[phone] P:[phone] Echocardiographic Report Patient Name: YAJAIRA FRANZ : [...] Interpretation Site: Exam was interpreted at [facility]. Left Ventricle: Mild concentric left [...] minute. Electronically Signed By: Dr. Jomar Ayala [facility] 06/29/2024 10:45:44 AM CDT Procedure Note Jomar Ayala MD - 06/29/2024 [facility] Medical Group Cardiology [address] [facility], [address], [place] [address] P:[phone] P:[phone] Echocardiographic Report Patient Name: YAJAIRA FRANZ : [...] Interpretation Site: Exam was interpreted at [facility]. Left Ventricle: Mild concentric left [...] minute. Electronically Signed By: Dr. Jomar Ayala [facility] 06/29/2024 10:45:44 AM CDT Ryan De Los Santos MD CV ECHO PROCEDURES Final Result * ECG 12 lead (06/19/2024 3:35 PM CDT) Ryan De Los Santos MD ECG ORDERABLES Final Res ult from Last 3 Months Insurance [employer] MEDICARE Care Teams Horse Show Judge Relationship Specialty Start Date End Date Kel Hope MD [address] [place] [address] PCP - General Internal Medicine 06/07/24
--- OUTSIDE RECORDS SUMMARY | 2024-09-06 12:39 | XMS_ITS | Encounter Summary ---
Author Organization [facility] Address [address] [place] [address] Care Team Providers Care Label Folder Name Role Phone Raysa Miguel MD Primary Care Provider [phone] Jonna Moss [facility]- Unavailable Regan Lam MD Unavailable [phone] Shahid Mansfield MD Unavailable [phone] Encounter Details Date Type Department Care Team (Late st Contact Info) Description 05/06/2017 Abstract [facility] CONVERSION [address] [place], [place] [address] , Generic Conversion, Social History Tobacco Use [...] Rule Out 01/31/2021 01/31/2021 01/31/2021 6:37 PM GROUND SYSTEMS ENGINEER COVID-19 Rule Out 05/16/2021 05/16/2021 05/16/2021 6:33 PM CDT documented as of this encounter Care Teams Label Folder Relationship Specialty Start Date End Date Raysa Miguel MD [address] [place] [address] PCP - General FAMILY PRACTICE 04/22/16 Jonna Moss, [facility] [place] [address] NURSE PRACTITIONER 04/22/16 Regan Lam MD [facility] [place] [address] CARDIOVASCULAR DISEASE 04/22/16 Shahid Mansfield MD [address] [place] [id number] ORTHOPAEDIC SURGERY 04/22/16 documented as of this encounter
--- OUTSIDE RECORDS SUMMARY | 2024-09-06 12:39 | XMS_ITS | Encounter Summary ---
Author Organization [facility] Healthcare Address [address] [place] [address] Care Team Providers Care Senior Catering Sales Manager Name Role Phone Kel Hope MD Primary Care Provider Encounter Details Date Type Department Care Team (Late st Contact Info) Description 09/03/2024 Orders Only [facility] Medical Group Cardiology [address] [place] [phone] Taylor Geiger MD [address] [place] [address] Social History Tobacco Use Types Packs/Day Years [...] Associated Diagnosis Comments CARDIOLOGY DOCUMENT SCAN Routine 09/02/2024 5:59 PM CDT CARDIOLOGY DOCUMENT SCAN Routine 08/29/2024 5:57 PM CDT documented in this encounter Results * Cardiology Document Scan (09/02/2024 5:59 PM CDT) Anatomical Region Laterality Modality Other us Leodan Rojo MD CV CARDIAC SERVICES PROCEDURES F inal Result * Cardiology Document Scan (08/29/2024 5:57 PM CDT) Anatomical Region Laterality Modality Other us Taylor Geiger MD CV CARDIAC SERVICES PROCEDU RES Final Result documented in this encounter Visit Diagnoses Not on filedocumented in this encounter Care Teams Senior Catering Sales Manager Relationship Specialty Start Date End Date Kel Hope MD [address] [place] [address] PCP - General Internal Medicine 06/07/24 documented as of this encounter
--- OUTSIDE RECORDS SUMMARY | 2024-09-06 12:39 | XMS_ITS | Encounter Summary ---
Author Organization [facility] Healthcare Address [address] [place] [address] Care Team Providers Care Abrading Machine Tender Name Role Phone Kel Hope MD Primary Care Provider Encounter Details Date Type Department Care Team (Late st Contact Info) Description 09/05/2024 Orders Only [facility] Medical Group Cardiology [address] [place] [address] Leodan Rojo MD [address] [place] [address] Social History Tobacco Use Types Packs/Day [...] DOCUMENT SCAN Routine 09/04/2024 2:56 PM CDT documented in this encounter Results * Cardiology Document Scan (09/04/2024 2:56 PM CDT) Anatomical Region Laterality Modality Other us Leodan Rojo MD CV CARDIAC SERVICES PROCEDURES F inal Result documented in this encounter Visit Diagnoses Not on filedocumented in this encounter Care Teams Abrading Machine Tender Relationship Specialty Start Date End Date Kel Hope MD [address] [place] [address] PCP - General Internal Medicine 06/07/24 documented as of this encounter
--- OUTSIDE RECORDS SUMMARY | 2024-09-06 12:39 | XMS_ITS | Encounter Summary ---
Author Organization [facility] Healthcare Address [address] [place] [address] Care Team Providers Care Automotive Painter Helper Name Role Phone Kel Hope MD Primary Care Provider Encounter Details Date Type Department Care Team (Late st Contact Info) Description 07/04/[address] [facility] Health Information Management [address] [place] [address] Scanning, Provider Social History Tobacco Use Types [...] on filedocumented in this encounter Care Teams Automotive Painter Helper Relationship Specialty Start Date End Date Kel Hope MD [address] [place] [address] PCP - General Internal Medicine 06/07/24 documented as of this encounter
--- OUTSIDE RECORDS SUMMARY | 2024-09-06 12:39 | XMS_ITS | Clinical Summary ---
Author Organization [facility] Address [address] [place] [address] Care Team Providers Care Pound Keeper Name Role Phone Raysa Miguel MD Primary Care Provider [phone] Jonna Moss COLORING CHECKER- Unavailable Regan Lam MD Unavailable [phone] Shahid Mansfield MD Unavailable [phone] Allergies Active Allergy Reactions Criticality Noted Date [...] Status Comments Brother Alive Father (Age 54) OR Maternal Grandfather Maternal Grandmother Mother (Age 67) [...] patient's age to complete this topic Insurance [facility] Care Teams Pound Keeper Relationship Specialty Start Date End Date Raysa Miguel MD [address] [place] [address] [place] [address] PCP - General FAMILY PRACTICE 04/22/16 Jonna Moss, COLORING CHECKER- [address] [place] [address] NURSE PRACTITIONER 04/22/16 Regan Lam MD [address] [place] [address] CARDIOVASCULAR DISEASE 04/22/16 Shahid Mansfield MD [address] [place] [address] ORTHOPAEDIC SURGERY 04/22/16
[2024-09-06 12:45] VITALS: BP 98/62; PULSE 75; RESP 17; TEMP 36.5; O2SAT 95
--- NOTE | 2024-09-06 12:45 | ADMGEN ---
This patient, Jose Davidson, was admitted to 2nd Floor Room 204-1. Patient/family oriented to hospital policies and general routines including ID bracelet, bed and alarms, visiting hours, pain management, procedures, bathroom and other care routines, personal items, smoking policy, room service/diet, and visiting hours. Information on how to activate the Rapid Response Team has been discussed. Patient/Family are encouraged to report perceived risks to care and to ask questions if they do not understand what they are told or what they should do.
[2024-09-06 14:36] VITALS: O2SAT 95
[2024-09-06 16:00] VITALS: BP 114/61; PULSE 84; RESP 16; TEMP 36.2; O2SAT 97
[2024-09-06] MEDS: OMEGA 3 POLYUNSAT FATTY ACIDS 1 GM CAP 2 GM PO (17:28)
[2024-09-06] MEDS: PANTOPRAZOLE 40 MG TABLET PO (17:29)
[2024-09-06 20:39] VITALS: PULSE 87
[2024-09-06] MEDS: LOVASTATIN 20 MG TABLET 40 MG PO (20:39)
[2024-09-06] MEDS: PROPRANOLOL HCL 60 MG CAPSULE CR 120 MG PO (20:39)
[2024-09-07] VITALS: BP 148/89; PULSE 87; RESP 18; TEMP 36.4; O2SAT 96
[2024-09-07 07:56] VITALS: BP 137/83; PULSE 86; RESP 16; TEMP 36.2; O2SAT 96
[2024-09-07] MEDS: POTASSIUM CHLORIDE 20 MEQ PACKET (FOR LIQUID) 40 MEQ PO (08:39)
[2024-09-07] MEDS: OMEGA 3 POLYUNSAT FATTY ACIDS 1 GM CAP 2 GM PO ×2 (08:40→17:07)
[2024-09-07] MEDS: EMPAGLIFLOZIN 10 MG TABLET PO (08:41)
[2024-09-07] MEDS: FOLIC ACID 1 MG TABLET PO (08:41)
[2024-09-07] MEDS: ASPIRIN 81 MG ENTERIC TABLET PO (08:41)
[2024-09-07] MEDS: THIAMINE HCL 100 MG TABLET PO (08:42)
[2024-09-07] MEDS: MAGNESIUM OXIDE 400 MG TABLET PO (08:42)
[2024-09-07] MEDS: dilTIAZem HCL CD 240 MG CAP.24HR PO (08:42)
[2024-09-07] MEDS: IRBESARTAN 150 MG TABLET PO (08:43)
[2024-09-07] MEDS: FUROSEMIDE 20 MG TABLET PO (08:43)
[2024-09-07] MEDS: MULTIVITAMINS THERAPEUTIC TAB (*BKC) 1 TABLET PO (08:43)
[2024-09-07] MEDS: PANTOPRAZOLE 40 MG TABLET PO ×2 (08:43→17:07)
[2024-09-07 10:27] LABS: Hematocrit 33.3 % (40.0-54.0); Hemoglobin 10.5 g/dL (14.0-18.0); Mean Corpuscular HGB Conc 31.5 g/dL (32-36); Mean Corpuscular Hemoglobin 33.1 pg (27.0-31.0); Mean Corpuscular Volume 105.0 fL (78.0-102.0); Platelet Count Result 211 K/mm3 (150-420); Red Blood Count 3.17 M/mm3 (4.70-6.10); White Blood Count 12.0 K/mm3 (4.8-10.8)
[2024-09-07 10:45] LABS: Alanine Aminotransferase 85 U/L (6-50); Albumin Level 3.3 g/dL (3.5-5.1); Alkaline Phosphatase 66 U/L (38-126); Anion Gap 3 mmol/L (4-12); Aspartate Amino Transferase 72 U/L (17-59); Bilirubin,Total 0.9 mg/dL (0.2-1.3); Blood Urea Nitrogen 27 mg/dL (9-20); Calcium 8.7 mg/dL (8.4-10.2); Carbon Dioxide 29 mmol/L (22-30); Chloride 106 mmol/L (98-107); Estimated Glomerular Filt Rate > 60; Glucose 110 mg/dL (65-110); Magnesium 1.5 mg/dL (1.6-2.3); Osmolality Calculated 292 mOsm/kg (285-295); Potassium 4.3 mmol/L (3.4-5.0); Sodium 138 mmol/L (137-145); Total Protein 6.4 g/dL (6.3-8.2)
--- NOTE | 2024-09-07 13:45 | P.HP_ITS ---
H&P: HPI History of Present Illness Date/Time: 09/07/24 13:45 Chief Complaint: REHAB Narrative: Patient is a 63-year-old male who was admitted to [facility] for further rehab with physical and occupational therapy after an extended hospitalization at [facility]. Patient was initially admitted for acute respiratory failure with hypoxia secondary to pneumonia and underlying COPD was also found to be in AFib RVR and alcohol withdrawal. patient reported he had retired 3 years ago the and following his longterm he began to drink heavily all day long. patient was treated for acute respiratory failure secondary to his pneumonia I completed his antibiotic therapy and had seen pulmonology team initially placed on BiPAP with Vapotherm currently on room air. patient with history of atrial fibrillation and had been off his Eliquis due to PUD with seen by Cardiology echocardiogram with LVEF 60-65% he was playful on Cardizem 240 mg daily however will need to continue with no AC due to his PUD. patient was also evaluated for possible GI bleed FOBT positive was started on PPI the patient had recently had an EGD colonoscopy and capsule performed that showed no active bleeds. patient arrived to [facility] is up in chair alert oriented in no acute distress denied any chest pain, shortness a breath, nausea, vomiting overall reported he was feeling much better and over his withdrawal symptoms but did endorse continued generalized weakness. Review of Systems Review of Systems: All systems reviewed & are unremarkable except as noted in HPI and below PMFSH Past Medical History Medical History (Updated 09/07/24 @ 13:55 by Madison Panda APRN) Occult blood in stools Acute on chronic anemia Alcoholic hepatitis GERD (gastroesophageal reflux disease) Hyperlipidemia Hypertension Alcohol abuse Hypermagnesemia Family History Family History Father Acute myocardial infarction Mother Cerebrovascular accident Social History Social History Smoking packs per day: 2 Smoking cigarettes per day: 40.0 Years smoked: 30 Smoking pack-years: 60.00 Smoking status: Former smoker Tobacco type: cigarettes Second hand tobacco smoke exposure: No Smoking end date: 02/20/06 Alcohol intake: former Drinks per week: 48 Substance use: never Substance use type: does not use Do You Feel Safe in your Home?: Yes Lack of Transportation: No Lack of Food: Never True Current Housing: I Have Housing Concerned About Future Housing: No Difficulty Paying Gas/Electric Bills: No Difficulty Paying for Meds: No Currently Unemployed: No Education: High School Diploma/GED Difficulty w/ Childcare or Family Care: No Gender identity (if verbalized by the patient): Male Sexual Orientation (if Verbalized by the Patient): Straight or Heterosexual Spiritual care concerns: No Meds Home Medications and Allergies Home Medications ?Medication ?Instructions ?Recorded ?Confirmed ?Type amlodipine 10 mg tablet 10 mg PO DAILY 04/20/22 09/06/24 History irbesartan 150 mg tablet 150 mg PO DAILY 04/20/22 09/06/24 History aspirin 81 mg tablet,delayed 81 mg PO DAILY 08/26/24 09/06/24 History release (Adult Aspirin Regimen) furosemide 20 mg tablet 20 mg PO DAILY 08/26/24 09/06/24 History lovastatin 40 mg tablet 40 mg PO HS 08/26/24 09/06/24 History magnesium 200 mg tablet 400 mg PO DAILY 08/26/24 09/06/24 History multivitamin (Daily Multi-Vitamin 1 tablet PO DAILY 08/26/24 09/06/24 History tablet) omega 8-zex-iyw-fish oil 100 2 cap PO BID 08/26/24 09/06/24 History mg-160 mg-1,000 mg capsule (Fish Oil) pantoprazole 40 mg tablet,delayed 40 mg PO BID 08/26/24 09/06/24 History release propranolol 120 mg capsule,24 120 mg PO HS 08/26/24 09/06/24 History hr,extended release sucralfate 1 gram tablet 1 g PO .with meals and HS 08/26/24 09/06/24 History diltiazem HCl 240 mg 240 mg PO QAM #30 caps 09/06/24 09/06/24 Rx capsule,extended release 24 hr, controlled empagliflozin 10 mg tablet 10 mg PO DAILY #30 tabs 09/06/24 09/06/24 Rx (Jardiance) folic acid 1 mg tablet 1 mg PO DAILY 30 days #30 tabs 09/06/24 09/06/24 Rx potassium chloride 20 mEq oral 40 meq PO DAILY #7 ea 09/06/24 09/06/24 Rx packet thiamine HCl (vitamin B1) 100 mg 100 mg PO QAM #30 tabs 09/06/24 09/06/24 Rx tablet (Vitamin B-1) Allergies Allergy/AdvReac Type Severity Reaction Status Date / Time azithromycin Allergy Unknown Verified 08/26/24 00:59 ezetimibe (From Vytorin) Allergy Unknown Verified 08/26/24 00:59 simvastatin (From Vytorin) Allergy Unknown Verified 08/26/24 00:59 Vital Signs Vital Signs - 24 hr 09/06/24 14:36 09/06/24 16:00 09/06/24 20:00 Temperature 97.2 F L Pulse Rate 84 Respiratory Rate 16 Blood Pressure 114/61 Pulse Oximetry 95 97 Oxygen Delivery Room Air Room Air Room Air 09/06/24 20:39 09/07/24 00:00 09/07/24 07:56 Temperature 97.5 F L 97.1 F L Pulse Rate 87 87 86 Respiratory Rate 18 16 Blood Pressure 148/89 H 137/83 Pulse Oximetry 96 96 Oxygen Delivery Room Air Room Air Exam Const: General: comfortable and no acute distress HENMT: Mouth: Yes moist mucous membranes Eyes: General: appearance normal, both eyes and all related structures Sclera: sclerae normal Neck: Neck: supple and no JVD Resp: Effort & Inspection: normal respiratory effort Auscultation: clear to auscultation bilaterally Cardio: Rate: regular rate Other: AFIB GI: GI Palp: Yes Soft to palpation Auscultation: normal bowel sounds Skin: General skin exam: normal color and no rashes or lesions noted Wounds: wounds noted Other: deep tissue bruising Neuro: General: gait normal Speech: normal speech Motor exam (neuro): 5/5 motor strength present throughout Extrem: General: normal to inspection Psych: Mental Status: mental status grossly normal Affect: normal affect H&P: Results Labs Labs: Short CBC 09/07/24 Range/Units 10:22 WBC 12.0 H (4.8-10.8) K/mm3 Hgb 10.5 L (14.0-18.0) g/dL Hct 33.3 L (40.0-54.0) % Plt Count 211 (150-420) K/mm3 BMP 09/07/24 10:22 Sodium 138 Potassium 4.3 Chloride 106 Carbon Dioxide 29 BUN 27 H Creatinine 1.03 Glucose 110 Calcium 8.7 Liver Function 09/07/24 Range/Units 10:22 Total Bilirubin 0.9 (0.2-1.3) mg/dL AST 72 H (17-59) U/L ALT 85 H (6-50) U/L Alkaline Phosphatase 66 (38-126) U/L Albumin 3.3 L (3.5-5.1) g/dL Assessment and Plan Assessment and plan (1) Physical deconditioning: Code(s): R53.81 - Other malaise Status: Acute Assessment and Plan: patient with recent hospitalization due to acute respiratory failure with hypoxia, EtOH withdrawals and anemia * PT/OT (2) Alcohol abuse: Code(s): F10.10 - Alcohol abuse, uncomplicated Status: Acute Assessment and Plan: patient reports his alcohol abuse worsened 3 years ago after return minute and with have control presented to [facility] in withdrawals and completed treatment inpatient * continued folic acid, vitamin, multivitamin and PPI * will provide resources for outpatient follow-up (3) Hypertension: Code(s): I10 - Essential (primary) hypertension Status: Acute Assessment and Plan: * resume patient's propanolol, irbesartan, amlodipine (4) Acute on chronic diastolic heart failure: Code(s): I50.33 - Acute on chronic diastolic (congestive) heart failure Status: Acute Assessment and Plan: stable is not appear in exacerbation last echocardiogram showing LVEF 60-65% * continued patient's diltiazem 240 mg daily * continued Lasix 20 mg daily (5) Hyperlipidemia: Code(s): E78.5 - Hyperlipidemia, unspecified Status: Acute Assessment and Plan: * continued patient statin (6) Acute on chronic anemia: Code(s): D64.9 - Anemia, unspecified Status: Acute Assessment and Plan: patient with history of peptic ulcer disease currently having hold his Eliquis * Eliquis on hold * monitor and trend H&H * patient had full GI workup with EGD, colonoscopy and capsule with no active bleeds * transfuse PRBCs if <7.0 (7) GERD (gastroesophageal reflux disease): Code(s): K21.9 - Gastro-esophageal reflux disease without esophagitis Status: Acute Assessment and Plan: * continue PPI (8) Persistent atrial fibrillation: Code(s): I48.19 - Other persistent atrial fibrillation Status: Acute Assessment and Plan: * continued patient's diltiazem * currently no AC at time due to PUD * continue to follow-up with cardiology outpatient (9) PUD (peptic ulcer disease): Code(s): K27.9 - Peptic ulcer, site unspecified, unspecified as acute or chronic, without hemorrhage or perforation Status: Acute Assessment and Plan: * continued PPI and Carafate Plan Code status: Full code per patient DVT prophylaxis: SCD's Stress ulcer prophylaxis: Protonix 40 daily PT/OT notes: Swing bed Disposition: patient continues admission to [facility] bed for continued physical and occupational therapy after extended hospitalization. Patient with unsteady gait in physically deconditioned will continue with PT/ OT plan is to return home when discharge when stable. Quality VTE Prophylaxis VTE prophylaxis: mechanical ordered -Patient's previous records reviewed on admission -discussed all findings and current treatment plan with patient/Family/POA -Consultations reviewed for recommendations -Patient's disposition for safe discharge discussed with case making machine operator Dictation performed by [employer] direct speech recognition software, therefore soil fertility specialist variants and typographical errors may occur. Hospitalist MARNIE Advance Care Plan I have confirmed that the patient's Advanced Care Plan is present, code status is documented, or surrogate decision maker is listed in patient medical record.: Yes Medication Reconciliation I have utilized all available resources to obtain, update and review the patients current medications (includes all prescriptions, OTC, herbals, cannabis, and nutritional supplements).: Yes The patient is not eligible for med reconciliation; the patient is in a emergent medical situation where delaying treatment would jeopardize the patients health .: No
[2024-09-07 16:00] VITALS: BP 95/50; PULSE 59; RESP 18; TEMP 36.3; O2SAT 96
[2024-09-07 20:00] VITALS: PULSE 80; RESP 18; O2SAT 96
[2024-09-07] MEDS: ACETAMINOPHEN 325 MG TABLET 650 MG PO (21:09)
[2024-09-07 21:11] VITALS: PULSE 80
[2024-09-07] MEDS: PROPRANOLOL HCL 60 MG CAPSULE CR 120 MG PO (21:11)
[2024-09-07] MEDS: ONDANSETRON HCL ODT 4 MG TABLET PO (21:11)
[2024-09-07] MEDS: LOVASTATIN 20 MG TABLET 40 MG PO (21:11)
[2024-09-08] VITALS: BP 127/74; PULSE 84; RESP 16; TEMP 36.8; O2SAT 94
[2024-09-08 08:00] VITALS: BP 109/69; PULSE 75; RESP 16; TEMP 36.4; O2SAT 95
[2024-09-08] MEDS: POTASSIUM CHLORIDE 20 MEQ PACKET (FOR LIQUID) 40 MEQ PO (08:29)
[2024-09-08] MEDS: dilTIAZem HCL CD 240 MG CAP.24HR PO (08:30)
[2024-09-08] MEDS: ASPIRIN 81 MG ENTERIC TABLET PO (08:30)
[2024-09-08] MEDS: OMEGA 3 POLYUNSAT FATTY ACIDS 1 GM CAP 2 GM PO ×2 (08:30→17:16)
[2024-09-08] MEDS: THIAMINE HCL 100 MG TABLET PO (08:31)
[2024-09-08] MEDS: MAGNESIUM OXIDE 400 MG TABLET PO ×2 (08:31→17:16)
[2024-09-08] MEDS: MULTIVITAMINS THERAPEUTIC TAB (*BKC) 1 TABLET PO (08:32)
[2024-09-08] MEDS: PANTOPRAZOLE 40 MG TABLET PO ×2 (08:32→17:16)
[2024-09-08] MEDS: IRBESARTAN 150 MG TABLET PO (08:32)
[2024-09-08] MEDS: FUROSEMIDE 20 MG TABLET PO (08:33)
[2024-09-08] MEDS: FOLIC ACID 1 MG TABLET PO (08:33)
[2024-09-08] MEDS: EMPAGLIFLOZIN 10 MG TABLET PO (08:33)
[2024-09-08 16:00] VITALS: BP 89/47; PULSE 68; RESP 16; TEMP 36.1; O2SAT 96
[2024-09-08 20:00] VITALS: PULSE 86; RESP 16; O2SAT 96
[2024-09-08 20:18] VITALS: PULSE 86
[2024-09-08] MEDS: ONDANSETRON HCL ODT 4 MG TABLET PO (20:18)
[2024-09-08] MEDS: ACETAMINOPHEN 325 MG TABLET 650 MG PO (20:18)
[2024-09-08] MEDS: PROPRANOLOL HCL 60 MG CAPSULE CR 120 MG PO (20:18)
[2024-09-08] MEDS: LOVASTATIN 20 MG TABLET 40 MG PO (20:18)
[2024-09-09] VITALS: BP 110/63; PULSE 85; RESP 18; TEMP 36.4; O2SAT 96
[2024-09-09 07:50] VITALS: BP 107/61; PULSE 89; RESP 18; TEMP 36.4; O2SAT 97
[2024-09-09 08:35] VITALS: PULSE 89; RESP 18; O2SAT 97
[2024-09-09] MEDS: POTASSIUM CHLORIDE 20 MEQ PACKET (FOR LIQUID) 40 MEQ PO (09:18)
[2024-09-09] MEDS: IRBESARTAN 150 MG TABLET PO (09:18)
[2024-09-09] MEDS: FUROSEMIDE 20 MG TABLET PO (09:18)
[2024-09-09] MEDS: THIAMINE HCL 100 MG TABLET PO (09:19)
[2024-09-09] MEDS: MULTIVITAMINS THERAPEUTIC TAB (*BKC) 1 TABLET PO (09:19)
[2024-09-09] MEDS: MAGNESIUM OXIDE 400 MG TABLET PO ×2 (09:19→17:41)
[2024-09-09] MEDS: ASPIRIN 81 MG ENTERIC TABLET PO (09:19)
[2024-09-09] MEDS: PANTOPRAZOLE 40 MG TABLET PO ×2 (09:19→17:41)
[2024-09-09] MEDS: EMPAGLIFLOZIN 10 MG TABLET PO (09:19)
[2024-09-09] MEDS: OMEGA 3 POLYUNSAT FATTY ACIDS 1 GM CAP 2 GM PO ×2 (09:19→17:41)
[2024-09-09] MEDS: FOLIC ACID 1 MG TABLET PO (09:19)
[2024-09-09] MEDS: dilTIAZem HCL CD 240 MG CAP.24HR PO (09:19)
[2024-09-09 16:35] VITALS: BP 92/49; PULSE 60; RESP 16; TEMP 36.6; O2SAT 96
[2024-09-09 20:00] VITALS: PULSE 84; RESP 16; O2SAT 96
[2024-09-09] MEDS: LOVASTATIN 20 MG TABLET 40 MG PO (21:00)
[2024-09-09] MEDS: ONDANSETRON HCL ODT 4 MG TABLET PO (21:05)
[2024-09-09] MEDS: ACETAMINOPHEN 325 MG TABLET 650 MG PO (21:05)
[2024-09-09 21:06] VITALS: PULSE 84
[2024-09-09] MEDS: PROPRANOLOL HCL 60 MG CAPSULE CR 120 MG PO (21:06)
[2024-09-10] VITALS: BP 117/56; PULSE 91; RESP 18; TEMP 36.8; O2SAT 94
[2024-09-10 08:00] VITALS: BP 89/44; PULSE 78; RESP 18; TEMP 36.6; O2SAT 98
[2024-09-10] MEDS: THIAMINE HCL 100 MG TABLET PO (09:55)
[2024-09-10] MEDS: EMPAGLIFLOZIN 10 MG TABLET PO (09:55)
[2024-09-10] MEDS: FUROSEMIDE 20 MG TABLET PO (09:55)
[2024-09-10] MEDS: OMEGA 3 POLYUNSAT FATTY ACIDS 1 GM CAP 2 GM PO ×2 (09:55→17:22)
[2024-09-10] MEDS: MULTIVITAMINS THERAPEUTIC TAB (*BKC) 1 TABLET PO (09:55)
[2024-09-10] MEDS: IRBESARTAN 150 MG TABLET PO (09:55)
[2024-09-10] MEDS: MAGNESIUM OXIDE 400 MG TABLET PO ×2 (09:55→17:22)
[2024-09-10] MEDS: PANTOPRAZOLE 40 MG TABLET PO ×2 (09:56→17:22)
[2024-09-10] MEDS: FOLIC ACID 1 MG TABLET PO (09:56)
[2024-09-10] MEDS: POTASSIUM CHLORIDE 20 MEQ PACKET (FOR LIQUID) 40 MEQ PO (09:56)
[2024-09-10] MEDS: dilTIAZem HCL CD 240 MG CAP.24HR PO (09:56)
[2024-09-10] MEDS: ASPIRIN 81 MG ENTERIC TABLET PO (09:56)
[2024-09-10] MEDS: ACETAMINOPHEN 325 MG TABLET 650 MG PO ×2 (15:16→20:58)
[2024-09-10 16:00] VITALS: BP 100/51; PULSE 80; RESP 16; TEMP 36.6; O2SAT 97
[2024-09-10 20:58] VITALS: PULSE 89
[2024-09-10] MEDS: PROPRANOLOL HCL 60 MG CAPSULE CR 120 MG PO (20:58)
[2024-09-10] MEDS: ONDANSETRON HCL ODT 4 MG TABLET PO (20:58)
[2024-09-10] MEDS: LOVASTATIN 20 MG TABLET 40 MG PO (20:58)
[2024-09-10 23:49] VITALS: BP 105/54; PULSE 89; RESP 16; TEMP 36.7; O2SAT 97
[2024-09-11 08:00] VITALS: BP 100/58; PULSE 79; RESP 18; TEMP 36.6; O2SAT 96
[2024-09-11] MEDS: IRBESARTAN 150 MG TABLET PO (09:31)
[2024-09-11] MEDS: POTASSIUM CHLORIDE 20 MEQ PACKET (FOR LIQUID) 40 MEQ PO (09:31)
[2024-09-11] MEDS: FUROSEMIDE 20 MG TABLET PO (09:31)
[2024-09-11] MEDS: EMPAGLIFLOZIN 10 MG TABLET PO (09:31)
[2024-09-11] MEDS: dilTIAZem HCL CD 240 MG CAP.24HR PO (09:31)
[2024-09-11] MEDS: ASPIRIN 81 MG ENTERIC TABLET PO (09:31)
[2024-09-11] MEDS: PANTOPRAZOLE 40 MG TABLET PO ×2 (09:31→17:40)
[2024-09-11] MEDS: THIAMINE HCL 100 MG TABLET PO (09:31)
[2024-09-11] MEDS: MAGNESIUM OXIDE 400 MG TABLET PO ×2 (09:31→17:40)
[2024-09-11] MEDS: FOLIC ACID 1 MG TABLET PO (09:31)
[2024-09-11] MEDS: MULTIVITAMINS THERAPEUTIC TAB (*BKC) 1 TABLET PO (09:31)
[2024-09-11] MEDS: OMEGA 3 POLYUNSAT FATTY ACIDS 1 GM CAP 2 GM PO ×2 (09:31→17:40)
[2024-09-11] MEDS: ACETAMINOPHEN 325 MG TABLET 650 MG PO ×2 (09:39→20:55)
[2024-09-11 16:00] VITALS: BP 95/51; PULSE 70; RESP 16; TEMP 36.1; O2SAT 96
[2024-09-11 20:55] VITALS: PULSE 90
[2024-09-11] MEDS: PROPRANOLOL HCL 60 MG CAPSULE CR 120 MG PO (20:55)
[2024-09-11] MEDS: LOVASTATIN 20 MG TABLET 40 MG PO (20:55)
[2024-09-11 23:55] VITALS: BP 114/57; PULSE 90; RESP 16; TEMP 36.9; O2SAT 97
[2024-09-12 07:52] VITALS: BP 91/48; PULSE 84; RESP 16; TEMP 36.4; O2SAT 98
[2024-09-12] MEDS: POTASSIUM CHLORIDE 20 MEQ PACKET (FOR LIQUID) 40 MEQ PO (08:35)
[2024-09-12] MEDS: ACETAMINOPHEN 325 MG TABLET 650 MG PO ×2 (08:36→21:29)
[2024-09-12] MEDS: EMPAGLIFLOZIN 10 MG TABLET PO (08:37)
[2024-09-12] MEDS: OMEGA 3 POLYUNSAT FATTY ACIDS 1 GM CAP 2 GM PO ×2 (08:37→17:01)
[2024-09-12] MEDS: MULTIVITAMINS THERAPEUTIC TAB (*BKC) 1 TABLET PO (08:37)
[2024-09-12] MEDS: IRBESARTAN 150 MG TABLET PO (08:37)
[2024-09-12] MEDS: FUROSEMIDE 20 MG TABLET PO (08:38)
[2024-09-12] MEDS: PANTOPRAZOLE 40 MG TABLET PO ×2 (08:38→17:01)
[2024-09-12] MEDS: FOLIC ACID 1 MG TABLET PO (08:38)
[2024-09-12] MEDS: dilTIAZem HCL CD 240 MG CAP.24HR PO (08:39)
[2024-09-12] MEDS: THIAMINE HCL 100 MG TABLET PO (08:39)
[2024-09-12] MEDS: MAGNESIUM OXIDE 400 MG TABLET PO ×2 (08:39→17:00)
[2024-09-12] MEDS: ASPIRIN 81 MG ENTERIC TABLET PO (08:39)
[2024-09-12 16:00] VITALS: BP 91/50; PULSE 70; RESP 16; TEMP 36.5; O2SAT 96
[2024-09-12 20:00] VITALS: PULSE 70; RESP 16; O2SAT 96
[2024-09-12 21:29] VITALS: PULSE 91
[2024-09-12] MEDS: PROPRANOLOL HCL 60 MG CAPSULE CR 120 MG PO (21:29)
[2024-09-12] MEDS: LOVASTATIN 20 MG TABLET 40 MG PO (21:30)
[2024-09-12] MEDS: ONDANSETRON HCL ODT 4 MG TABLET PO (21:31)
[2024-09-13] VITALS: BP 110/65; PULSE 86; RESP 16; TEMP 36.9; O2SAT 93
[2024-09-13 07:48] VITALS: BP 94/48; PULSE 89; RESP 16; TEMP 36; O2SAT 96
[2024-09-13] MEDS: ACETAMINOPHEN 325 MG TABLET 650 MG PO (08:18)
[2024-09-13] MEDS: PANTOPRAZOLE 40 MG TABLET PO (08:19)
[2024-09-13] MEDS: FOLIC ACID 1 MG TABLET PO (08:19)
[2024-09-13] MEDS: OMEGA 3 POLYUNSAT FATTY ACIDS 1 GM CAP 2 GM PO (08:19)
[2024-09-13] MEDS: POTASSIUM CHLORIDE 20 MEQ PACKET (FOR LIQUID) 40 MEQ PO (08:20)
[2024-09-13] MEDS: THIAMINE HCL 100 MG TABLET PO (08:21)
[2024-09-13] MEDS: IRBESARTAN 150 MG TABLET PO (08:21)
[2024-09-13] MEDS: dilTIAZem HCL CD 240 MG CAP.24HR PO (08:21)
[2024-09-13] MEDS: EMPAGLIFLOZIN 10 MG TABLET PO (08:21)
[2024-09-13] MEDS: ASPIRIN 81 MG ENTERIC TABLET PO (08:21)
[2024-09-13] MEDS: MULTIVITAMINS THERAPEUTIC TAB (*BKC) 1 TABLET PO (08:22)
[2024-09-13] MEDS: FUROSEMIDE 20 MG TABLET PO (08:22)
[2024-09-13] MEDS: MAGNESIUM OXIDE 400 MG TABLET PO (08:22)
--- NOTE | 2024-09-13 10:15 | PC.NURSE ---
Discharge instructions given to patient and patient's girlfriend. Both voiced understanding. Personal items sent home with patient. Patient left unit in w/c, accompanied by nurse and patient's girlfriend. Patient left hospital grounds in privately owned vehicle.
--- NOTE | 2024-09-13 10:30 | P.DS_ITS ---
DS: Admitting Diagnosis Discharge Date 09/13/24 Admitting Diagnosis Fall , Alcohol abuse, DS: Discharge Diagnosis Discharge Diagnosis (1) Physical deconditioning: Code(s): R53.81 - Other malaise Status: Acute Assessment and Plan: patient with recent hospitalization due to acute respiratory failure with hypoxia, EtOH withdrawals and anemia * PT/OT (2) Alcohol abuse: Code(s): F10.10 - Alcohol abuse, uncomplicated Status: Acute Assessment and Plan: patient reports his alcohol abuse worsened 3 years ago after return minute and with have control presented to [facility] in withdrawals and completed treatment inpatient * continued folic acid, vitamin, multivitamin and PPI * will provide resources for outpatient follow-up (3) Hypertension: Code(s): I10 - Essential (primary) hypertension Status: Acute Assessment and Plan: * resume patient's propanolol, irbesartan, amlodipine (4) Acute on chronic diastolic heart failure: Code(s): I50.33 - Acute on chronic diastolic (congestive) heart failure Status: Acute Assessment and Plan: stable is not appear in exacerbation last echocardiogram showing LVEF 60-65% * continued patient's diltiazem 240 mg daily * continued Lasix 20 mg daily (5) Hyperlipidemia: Code(s): E78.5 - Hyperlipidemia, unspecified Status: Acute Assessment and Plan: * continued patient statin (6) Acute on chronic anemia: Code(s): D64.9 - Anemia, unspecified Status: Acute Assessment and Plan: patient with history of peptic ulcer disease currently having hold his Eliquis * Eliquis on hold * monitor and trend H&H * patient had full GI workup with EGD, colonoscopy and capsule with no active bleeds * transfuse PRBCs if <7.0 (7) GERD (gastroesophageal reflux disease): Code(s): K21.9 - Gastro-esophageal reflux disease without esophagitis Status: Acute Assessment and Plan: * continue PPI (8) Persistent atrial fibrillation: Code(s): I48.19 - Other persistent atrial fibrillation Status: Acute Assessment and Plan: * continued patient's diltiazem * currently no AC at time due to PUD * continue to follow-up with cardiology outpatient (9) PUD (peptic ulcer disease): Code(s): K27.9 - Peptic ulcer, site unspecified, unspecified as acute or chronic, without hemorrhage or perforation Status: Acute Assessment and Plan: * continued PPI and Carafate Plan Code status: Full code per patient DVT prophylaxis: SCD's Stress ulcer prophylaxis: Protonix 40 daily PT/OT notes: Swing bed Disposition: patient continues admission to [facility] swing bed for continued physical and occupational therapy after extended hospitalization. Patient with unsteady gait in physically deconditioned will continue with PT/ OT plan is to return home when discharge when stable. DS: Summary Hospital Course Reason for hospitalization: Weakness, Fall, Alcohol abuse Hospital Course: This is a 64 year old male that was admitted to the hospital after a night of drinking and a fall where he laid on the floor. Patient is bruised up all over in multiple stages of healing. Patient has been worked up for possible GI bleed and has a history of AFib and is off of anticoagulation in which he will be following up with his primary care provider to decide when to return to anticoagulation. [facility] has continued to improve and he is not able to return home . Patient is in need to continue his medication for hypertension and Afib. He ac knowledge the need to quit drinking and he is ready to slow down drinking. He will have close follow up as a outpatient. He will be assisted by his significant other at home. Time Spent with Patient Time attestation: Total time spent providing and/or coordinating discharge services: Exam Const: General: comfortable and no acute distress HENMT: Mouth: Yes moist mucous membranes Eyes: General: appearance normal, both eyes and all related structures Sclera: sclerae normal Neck: Neck: supple and no JVD Resp: Effort & Inspection: normal respiratory effort Auscultation: clear to auscultation bilaterally Cardio: Rate: regular rate Other: AFIB GI: Auscultation: normal bowel sounds Skin: General skin exam: normal color, no rashes or lesions noted and wounds noted Wounds: wounds noted Other: deep tissue bruising Neuro: General: gait normal Speech: normal speech Motor exam (neuro): 5/5 motor strength present throughout Extrem: General: normal to inspection Psych: Mental Status: mental status grossly normal Affect: normal affect Discharge Plan Discharge Attending physician on discharge: Renard Tang Consulting providers: Madison Panda; Jasmin Parikh Discharging Clinician: Jasmin Parikh Anticipated Discharge Date/Time: 09/13/24 09:21 Patient Disposition: Home Activity: may shower Diet: heart healthy Discharge Instructions: Make sure that you are eating good foods. Follow up with your primary care provider Patient Instructions: Antibiotic Form, Empagliflozin (By mouth), Fall Prevention for Older Adults (DC), COPD (Chronic Obstructive Pulmonary Disease) (DC), Abuse of Alcohol (DC), Alcohol Dependence (DC), Acute Respiratory Failure (GEN) Patient Language: Hebrew Stand Alone Forms: General Discharge Information Follow-up/Referrals: Leodan Rojo MD [Physician] - 09/19/24 1:30 pm Kel Hope MD [Primary Care Provider, Internal Medicine] Referral Note: Patient to make his own follow up appointment with Dr. Hope Discharge Medications: Continued furosemide 20 mg tablet 20 mg PO DAILY pantoprazole 40 mg tablet,delayed release (DR/EC) 40 mg PO BID lovastatin 40 mg tablet 40 mg PO HS magnesium 200 mg tablet 400 mg PO DAILY Fish Oil 100-160-1,000 mg capsule 2 cap PO BID multivitamin [Daily Multi-Vitamin] Tablet 1 tablet PO DAILY diltiazem HCl 240 mg Capsule,Ext.Rel 24h Degradable 240 mg PO QAM Qty: 30 0RF potassium chloride 20 mEq Packet 40 meq PO DAILY Qty: 7 0RF folic acid 1 mg Tablet 1 mg PO DAILY 30 Days Qty: 30 0RF Jardiance 10 mg Tablet 10 mg PO DAILY Qty: 30 0RF No Action Eliquis 5 mg tablet 5 mg PO Q12H Date of admission: 09/06/24 12:35 Primary Care Provider: Kel Hope Admitting Provider: Renard Tang Attending physician on admission: Renard Tang Condition: Stable
--- NOTE | 2024-09-16 10:29 | PC.NURSE ---
Discharge call back made, unable to reach Jose on his personal cell phone, called significant other Nadia. She informs he is doing well, they understood all discharge instructions, education and did not have any questions with side effects to medications at this time. Jose did call back and he too has no questions or concerns r/t discharge. Informed Jose he may be recieving a call/survery r/t to his stay here. He informs he would answer questions if he gets the call.
== END 2024-09-13 10:15 | disposition home or self-care (01) | DRG 947 ==
PROVIDERS: Nurse Practitioner Family; Admitting Provider Internal Medicine; PCP Internal Medicine; Visit Provider Internal Medicine
DX: R53.81 Other malaise (principal); I50.33 Acute on chronic diastolic (congestive) heart failure; J18.9 Pneumonia, unspecified organism; J96.01 Acute respiratory failure with hypoxia; J44.0 Chronic obstructive pulmonary disease with (acute) lower respiratory infection; F10.139 Alcohol abuse with withdrawal, unspecified; I48.19 Other persistent atrial fibrillation; D64.9 Anemia, unspecified; E78.5 Hyperlipidemia, unspecified; I11.0 Hypertensive heart disease with heart failure; K27.9 Peptic ulcer, site unspecified, unspecified as acute or chronic, without hemorrhage or perforation; K21.9 Gastro-esophageal reflux disease without esophagitis; Z87.891 Personal history of nicotine dependence
CPT/HCPCS: 36415; 80053; 82948; 83735; 85027; 97110; 97112; 97161; 97165; 97530; 97535; A9270

== ENCOUNTER 2024-09-24 14:13 | Outpatient (CLI) | payer MEDICARE, SELFPAY ==
[2024-09-24 14:37] LABS: Hematocrit 34.5 % (37.0-46.0); Hemoglobin 11.0 g/dL (12.4-15.3); Mean Corpuscular HGB Conc 31.9 g/dL (32-36); Mean Corpuscular Hemoglobin 31.6 pg (27.0-31.0); Mean Corpuscular Volume 99.1 fL (78.0-102.0); Platelet Count Result 300 K/mm3 (150-420); Red Blood Count 3.48 M/mm3 (4.70-6.10); White Blood Count 8.3 K/mm3 (4.8-10.8)
[2024-09-24 14:39] LABS: Add Urine Microscopic? YES; Appearance Urine Clear (Clear); Glucose Urine UA Negative (Negative); Leukocyte Esterase Ur Negative (Negative); Nitrate Urine Negative (Negative); Specific Grav Ur 1.020 (1.010-1.020)
[2024-09-24 15:46] LABS: Alanine Aminotransferase 60 U/L (6-50); Albumin Level 3.7 g/dL (3.5-5.1); Alkaline Phosphatase 174 U/L (38-126); Anion Gap 7 mmol/L (4-12); Aspartate Amino Transferase 71 U/L (17-59); Bilirubin,Total 1.1 mg/dL (0.2-1.3); Blood Urea Nitrogen 23 mg/dL (9-20); Calcium 9.4 mg/dL (8.4-10.2); Carbon Dioxide 25 mmol/L (22-30); Chloride 99 mmol/L (98-107); Estimated Glomerular Filt Rate 36; Glucose 106 mg/dL (65-110); Magnesium 1.2 mg/dL (1.6-2.3); Osmolality Calculated 275 mOsm/kg (285-295); Potassium 4.9 mmol/L (3.4-5.0); Sodium 131 mmol/L (137-145); Total Protein 6.4 g/dL (6.3-8.2)
[2024-09-24 17:15] LABS: INR 1.4; Partial Thromboplastin Time 37.8 Sec (23.9-30.70); Prothrombin Time 15.1 Seconds (9.50-12.1)
[2024-09-25 07:55] LABS: NT Pro B Type Natriuretic Pept 680 pg/mL (19.9-100)
== END 2024-09-24 14:14 | disposition home or self-care (01) ==
LOC: CHSLAB 14:16
PROVIDERS: PCP Internal Medicine; Visit Provider Internal Medicine
DX: I48.91 Unspecified atrial fibrillation (principal); I50.9 Heart failure, unspecified; K76.9 Liver disease, unspecified
CPT/HCPCS: 36415; 80053; 81001; 83735; 83880; 84100; 85027; 85610; 85730

== ENCOUNTER 2024-09-27 10:38 | Outpatient (CLI) | payer MEDICARE, SELFPAY ==
--- OUTSIDE RECORDS SUMMARY | 2024-09-27 10:42 | XMS_ITS | Clinical Summary ---
Author Organization [facility] Address [address] [place] [address] Care Team Providers Care Merchandise Adjustment Clerk Name Role Phone Unavailable Primary Care Provider [...]
--- OUTSIDE RECORDS SUMMARY | 2024-09-27 10:42 | XMS_ITS | Encounter Summary ---
Author Organization [facility] Healthcare Address [address] [place] [address] Care Team Providers Care Clinical Specialist Vascular Name Role Phone Kel Hope MD Primary Care Provider [phone] Encounter Details Date Type Department Care Team (Late st Contact Info) Description 07/04/2024 Orders Only [facility] Information Management [address] [place] [id number] Scanning, Provider Social History Tobacco Use Types [...] PM CDT) us Provider Scanning Final Result documented in this encounter Visit Diagnoses Not on filedocumented in this encounter Care Teams Clinical Specialist Vascular Relationship Specialty Start Date End Date Kel Hope MD [address] [place] [address] PCP - General Internal Medicine 06/07/24 documented as of this encounter
--- OUTSIDE RECORDS SUMMARY | 2024-09-27 10:42 | XMS_ITS | Encounter Summary ---
Author Organization [facility] Address [address] [place] [address] Care Team Providers Care Tack Cutter Name Role Phone Raysa Miguel MD Primary Care Provider [phone] Jonna Moss [facility]- Unavailable Regan Lam MD Unavailable [phone] Shahid Mansfield MD Unavailable [phone] Encounter Details Date Type Department Care Team (Late st Contact Info) Description 05/06/2017 Abstract [facility] CONVERSION [address] [place], [place] [id number] , Generic Conversion, Social History Tobacco Use [...] Rule Out 01/31/2021 01/31/2021 01/31/2021 6:37 PM GATE CUTTER COVID-19 Rule Out 05/16/2021 05/16/2021 05/16/2021 6:33 PM CDT documented as of this encounter Care Teams Tack Cutter Relationship Specialty Start Date End Date Raysa Miguel MD [address] [place] [address] PCP - General FAMILY PRACTICE 04/22/16 Jonna Moss, [facility] [address] NURSE PRACTITIONER 04/22/16 Regan Lam MD [facility] [place] [address] CARDIOVASCULAR DISEASE 04/22/16 Shahid Mansfield MD [address] [place] [id number] ORTHOPAEDIC SURGERY 04/22/16 documented as of this encounter
--- OUTSIDE RECORDS SUMMARY | 2024-09-27 10:42 | XMS_ITS | Clinical Summary ---
Author Organization [facility] [address] Address [address] [place] [address] Care Team Providers Care Glass Grinder Name Role Phone Kel Hope MD Primary Care Provider [phone] Allergies Active Allergy Reactions Criticality Noted Date Comments Martell-3 Fatty Acids Other (See comments) 2024 Indigestion Lisinopril Muscle pain Medium 06/19/2024 Niacin Itching Low 06/19/2024 Medications irbesartan (AVAPRO) 150 mg tablet Take 1 tablet (150 mg total) by mouth nightly Active amLODIPine (NORVASC) 10 mg tablet Take [...] 06/20/19 26 Active empagliflozin (JARDIANCE) 10 mg tabletIndication s:Heart Failure Take 1 tablet (10 mg total) by mouth daily 90 tablet 3 5 07/30/[address] (PROTONIX) 40 mg EC tablet Take 1 tablet (40 mg total) by mouth 2 (two) times a day Active dilTIAZem XR 240 mg 24 hr capsule Take 1 capsule (240 mg total) by mouth every morning 90 capsule 3 5 09/20/19 26 Active hydroCHLOROthiaz lolly (HYDRODIURIL) 25 mg tablet Take 1 tablet (25 mg total) by mouth daily 09/20/19 25 Discontinu ed(Alterna te therapy) dilTIAZem XR 240 mg 24 hr capsule Take 1 capsule (240 mg total) by mouth every morning 5 09/20/19 25 Discontinu ed(Reorder ) Hospital, Clinic, or Other Facility Administered Medication Ordered Dose Route Frequency Start Date End Date Status aminophylline 250 mg/10 mL injection 100 mgIndications:Atrial fibrillation, unspecified type (HCC) 100 mg IV Once 2024 2024 Ended Active Problems Problem Noted Date Diagnosed Date Cardiomyopathy 07/29/2024 Systolic congestive heart failure 07/29/2024 DANIEL (obstructive sleep apnea) 06/19/2024 Bilateral lower extremity edema 06/19/2024 Morbid obesity 06/19/2024 Morbid obesity with BMI of 40.0-44.9, adult 05/23 Mixed hyperlipidemia 06/19/2024 Atrial fibrillation 06/19/2024 Essential hypertension 06/19/2024 Alcohol abuse 06/19/2024 Encounters Date Type Department Care Team Description 2024 8:30 AM CDT Ancillary Procedure [facility] Cardiology at [address] [place] [address] Atrial fibrillation, unspecified type (HCC); Cardiomyopathy, unspecified type (HCC); Systolic congestive heart failure, unspecified HF chronicity (HCC) 09/19/2024 1:30 PM CDT Office Visit [facility] Card[facility] [address] [facility] [address] [place] [phone] Leodan Rojo MD Paroxysmal atrial fibrillation (HCC) (Primary Dx) 09/19/2024 Telephone [facility] Cardiology [address] [place] [phone] Ryan De Los Santos MD 09/05/2024 Orders Only [facility] Cardiology [address] [place] [address] [place] [phone] Leodan Rojo MD 09/03/2024 Orders Only [facility] Cardiology [address] [place] [address] [place] [phone] Taylor Geiger MD 09/02/2024 Telephone [facility] Cardiology at [address] [place] [phone] Leodan Rojo MD 08/30/2024 Orders Only [facility] Cardiology [address] [place] [address] [place] [phone] Taylor Geiger MD 08/27/2024 Telephone [facility] Cardiology [address] [place] [address] [place] [phone] Ryan De Los Santos MD 07/29/2024 11:00 AM CDT Ancillary Procedure [facility] Cardiology at [address] [place] [phone] Paroxysmal atrial fibrillation (HCC) 07/29/2024 10:30 AM CDT Office Visit [facility] Cardiology at [address] [place] [phone] Ryan De Los Santos MD Bilateral lower extremity edema (Primary Dx); DANIEL (obstructive sleep apnea); Paroxysmal atrial fibrillation (HCC); Essential hypertension; Mixed hyperlipidemia; Morbid obesity with BMI of 40.0-44.9, adult (HCC); Alcohol abuse; Cardiomyopathy, unspecified type (HCC); Systolic congestive heart failure, unspecified HF chronicity (HCC) 07/26/2024 Telephone [facility] Medical [facility] Cardiology [address] [place] [address] [place] [phone] Ryan De Los Santos MD 07/10/2024 Telephone [facility] Cardiology [address] [place] [address] Ryan De Los Santos MD 07/04/2024 Orders Only [facility] Health Information Management [address] [place] [phone] Scanning, Provider 06/28/2024 3:00 PM CDT Ancillary Procedure [facility] Cardiology at [address] [place] [phone] Atrial fibrillation, unspecified type (HCC); Essential hypertension; Bilateral lower extremity edema 06/27/2024 Telephone [facility] Cardiology [address] [place] [phone] Ryan De Los Santos MD from Last 3 Months Surgical History Surgery [...] Sign Reading Time Taken Comments Blood Pressure 88/50 09/19/2024 1:12 PM CDT Pulse 72 09/19/2024 1:12 PM CDT Temperature - - Respiratory Rate - - Oxygen Saturation 98% 09/19/2024 1:12 PM CDT Inhaled Oxygen Concentration - - Weight 105.2 kg (232 lb) 09/19/2024 1:12 PM CDT Height 167.6 cm (5' 6) 09/19/2024 1:12 PM CDT Body Mass Index 37.45 09/19/2024 1:12 PM CDT Plan of Treatment Health Maintenance Due Date Last Done Comments Colon Cancer Screening-Colonoscopy 1960 Depression Screening 1960 Fall Risk Assessment 1960 Hepatitis C Screening 1960 Prostate Cancer Screening-PSA 1960 Hepatitis B Screening 09/19/1977 Pneumococcal vaccine 65+ (2 of 2 - PPSV23) 05/09/2017 03/14/2017 Covid-19 Vaccine (5 - 2023-2 5 season) 2023 11/11/2021, 12/25/2020, 04/24/2020, Additional history exists Abdominal Aortic Aneurysm (A AA) Screen 09/19/2024 Well Visit 65+ 09/19/2024 DTaP/Tdap/Td Vaccine (2 - Td or Tdap) 10/13/2024 10/13/2014 Influenza Vaccine (#1) 2024 , 11/11/2021, 03/16/2020 Zoster Vaccine Completed 09/07/2023, 01/10/2023 Procedures Procedure Name Priority Date/Time Associated Diagnosis Comments NM MPI SPECT (REST AND/OR STRESS) MULTIPLE STUDIES Schedule Routine, Read Routine (OP Routine) 2024 9:49 AM CDT Atrial fibrillation, unspecified type (HCC) Cardiomyopathy, unspecified type (HCC) Systolic congestive heart failure, unspecified HF chronicity (HCC) CARDIOLOGY DOCUMENT SCAN Routine 09/04/2024 2:56 PM [...] fibrillation (HCC) POCT LIPID PANEL Routine 07/29/2024 10:25 AM CDT Mixed hyperlipidemia SCAN - LABS 07/04/2024 9:28 PM CDT TRANSTHORACIC ECHO (TTE) COMPLETE W DOPPLER/CF Routine 06/28/2024 2:52 PM CDT Atrial fibrillation, unspecified type (HCC) Essential hypertension Bilateral lower extremity edema from Last 3 Months Results * NM MPI SPECT (Rest and/or Stress) Multiple Studies (2024 9:49 AM CDT) Anatomical Region Laterality Modality Body N/A Electrocardiogra phy 2024 8:30 AM CDT Narrative 2024 12:51 PM CDT [facility] Cardiology [address], [place] [address] [address] [facility] [address], [place] [address], [place] [address] P:[phone] P:[phone] MPI Imaging Report Patient Name: YAJAIRA MAGUIRE R : 1960 Study Date: 2024 8:30:00 AM Gender: M Tech: NIDA [facility] Location: [facility] Provider: TAYLOR GEIGER Height(Cm): 167.6 BSA: Weight(Kg): 118.4 Heart Rate: 132 BMI: 42.15 Order Provider: TAYLOR GEIGER PHYSICIAN: Primary Care Physician: Dr. Hope. [facility] Physician: Mynor De Los Santos M.D. Stress Supervision: Isai Alexander M.D.,F.A.C.C. Stress Interpreting Physician: Isai Alexander M.D.,F.A.C.C. Image Interpreting Physician: Isai Alexander M.D.,F.A.CEstefaníaC. PROCEDURES: Pharmacologic SPECT Report: Myocardial perfusion imaging with Tc99M Sestamibi SPECT at rest and stress post regadenoson (Lexiscan) infusion. INDICATIONS: Hypertension, Family Hx CAD, High Cholesterol, Former Smoker, VALDEZ, I48.91 Unspecified atrial fibrillation, I42.9 Cardiomyopathy, unspecified, and I50.20 Unspecified systolic (congestive) heart failure. FINDINGS: Procedural Findings: One day rest/stress was used. Tc99m Sestamibi injected IV at rest was 12.4 millicuries 37.7 millicuries of Tc99M Sestamibi injected IV during Lexiscan stress Lexiscan 0.4mg administered IV over 10 seconds. Pharmacologic stress related symptoms and/or side effects during infusion include nausea and dizziness. Symptoms were resolved with 100 mg of aminophylline IVP. Baseline heart rate was 77 BPM Maximum Heart Rate Achieved was: 78 BPM Baseline blood pressure was 98/54 mmHg Post Stress Blood Pressure was 94/60 mmHg Termination: Protocol complete. Resting ECG: Atrial fibrillation , low QRS voltage. Post ECG: No diagnostic ST changes. Perfusion Findings: A TID of 1.22 was automatically calculated. defect 1: Size is small. Severity is moderate to severe in intensity. Location of defect is in the apex. Reversibility is not present, defect is fixed. Type of defect is most likely attenuation artifact. Artifact due to diaphragmatic attenuation. LV Function: Global left ventricular function is normal with evidence of left ventricular enlargement. Left ventricular ejection fraction is 51 %. CONCLUSIONS: Atrial fibrillation , low QRS voltage. No diagnostic ST changes. Global left ventricular function is normal with evidence of left ventricular enlargement Left ventricular ejection fraction is 51 %. Size is small. Severity is moderate to severe in intensity. Location of defect is in the apex. Reversibility is not present, defect is fixed. Type of defect is most likely attenuation artifact. Artifact due to diaphragmatic attenuation. Electronically Signed By: Isai Alexander MD, [facility] 2024 12:47:29 PM CDT Electronically Signed By: Isai Alexander MD, [facility] 2024 12:47:29 PM CDT Procedure Note Isai Alexander MD - 2024 [facility] Card[facility] [address] [facility] [address], [place] [address] [address] [facility] [address], [place] [address], [place] [address] P:[phone] P:[phone] MPI Imaging Report Patient Name: YAJAIRA MAGUIRE R : 1960 Study Date: 2024 8:30:00 AM Gender: M Tech: [facility] Location: [facility] Provider: TAYLOR GEIGER Height(Cm): 167.6 BSA: Weight(Kg): 118.4 Heart Rate: 132 BMI: 42.15 Order Provider: TAYLOR GEIGER PHYSICIAN: Primary Care Physician: Dr. Hope. [facility] Physician: Mynor De Los Santos M.D. Stress Supervision: Isai Alexander M.D.,F.A.C.C. Stress Interpreting Physician: Isai Alexander M.D.,F.A.C.C. Image Interpreting Physician: Isai Alexander M.D.,F.A.CEstefaníaC. PROCEDURES: Pharmacologic SPECT Report: Myocardial perfusion imaging with Tc99M Sestamibi SPECT at rest and stresspost regadenoson (Lexiscan) infusion. INDICATIONS: Hypertension, Family Hx CAD, High Cholesterol, Former Smoker, VALDEZ, I48.91Unspecified atrial fibrillation, I42.9 Cardiomyopathy, unspecified, and I50.20Unspecified systolic (congestive) heart failure. FINDINGS: Procedural Findings: One day rest/stress was used. Tc99m Sestamibi injected IV at rest was 12.4 millicuries 37.7 millicuries of Tc99M Sestamibi injected IV during Lexiscan stress Lexiscan 0.4mg administered IV over 10 seconds. Pharmacologic stress related symptoms and/or side effects duringinfusion include nausea and dizziness. Symptoms were resolved with 100 mg of aminophylline IVP. Baseline heart rate was 77 BPM Maximum Heart Rate Achieved was: 78 BPM Baseline blood pressure was 98/54 mmHg Post Stress Blood Pressure was 94/60 mmHg Termination: Protocol complete. Resting ECG: Atrial fibrillation , low QRS voltage. Post ECG: No diagnostic ST changes. Perfusion Findings: A TID of 1.22 was automatically calculated. defect 1: Size is small. Severity is moderate to severe in intensity. Location ofdefect is in the apex. Reversibility is not present, defect is fixed. Type of defect ismost likely attenuation artifact. Artifact due to diaphragmatic attenuation. LV Function: Global left ventricular function is normal with evidence of leftventricular enlargement. Left ventricular ejection fraction is 51 %. CONCLUSIONS: Atrial fibrillation , low QRS voltage. No diagnostic ST changes. Global left ventricular function is normal with evidence of leftventricular enlargement Left ventricular ejection fraction is 51 %. Size is small. Severity is moderate to severe in intensity. Location ofdefect is in the apex. Reversibility is not present, defect is fixed. Type of defect ismost likely attenuation artifact. Artifact due to diaphragmatic attenuation. Electronically Signed By: Isai Alexander MD, [facility] 2024 12:47:29 PM CDT Electronically Signed By: Isai Alexander MD, [facility] 2024 12:47:29 PM CDT Taylor Geiger MD IM NM PROCEDURES Final Res ult * Cardiology Document Scan (09/04/2024 2:56 PM CDT) Anatomical Region Laterality Modality Other us Leodan Rojo MD CV CARDIAC SERVICES PROCEDURES F inal Result * Cardiology Document Scan (09/02/2024 5:59 PM CDT) Anatomical Region Laterality Modality Other us Ledoan Rojo MD CV CARDIAC SERVICES PROCEDURES F inal Result * Cardiology Document Scan (08/29/2024 5:57 PM CDT) Anatomical Region Laterality Modality Other us Taylor Geiger MD CV CARDIAC SERVICES PROCEDU RES Final Result * Cardiology Document Scan (08/29/2024 2:34 PM CDT) Anatomical Region Laterality Modality Other Result [facility] Taylor Geiger MD CV CARDIAC SERVICES PROCEDU RES Final Result * Cardiology Document Scan (08/27/2024 2:31 PM CDT) Anatomical Region Laterality Modality Other Result [facility] Taylor Geiger MD CV CARDIAC SERVICES PROCEDU RES Final Result * Cardiology Document Scan (08/26/2024 2:15 PM CDT) Anatomical Region Laterality Modality Other Result [facility] Taylor Geiger MD CV CARDIAC SERVICES PROCEDU RES Final Result * 48 HR Holter Monitor (07/29/2024 12:28 PM CDT) Anatomical Region Laterality Modality Electrocardiogra phy Narrative 08/02/2024 3:32 PM CDT AMBULATORY STATION SUPERVISOR REPORT Patient Name: Yajaira Franz Date of [...] was used to complete this document, therefore, catalyst impregnator variances may occur. Ryan De Los Santos MD, [facility] 08/02/24 Result [facility] Ryan De Los Santos MD CV CARDIAC [...] PM CDT Narrative 06/29/2024 10:46 AM CDT [facility] Cardiology [facility] [facility], [address], [place] [address] P:[phone] P:[phone] Echocardiographic Report Patient Name: YAJAIRA FRANZ : [...] FINDINGS: Interpretation Site: Exam was interpreted at [facility]. Left Ventricle: Mild concentric left ventricular hypertrophy. [...] minute. Electronically Signed By: Dr. Jomar Ayala [facility] 06/29/2024 10:45:44 AM CDT Procedure Note Jomar Ayala MD - 06/29/2024 [facility] Cardiology [address] [facility], [address], [place] [address] P:[phone] P:[phone] Echocardiographic Report Patient Name: YAJAIRA FRANZ : [...] FINDINGS: Interpretation Site: Exam was interpreted at [facility]. Left Ventricle: Mild concentric left ventricular hypertrophy. [...] minute. Electronically Signed By: Dr. Jomar Ayala [facility] 06/29/2024 10:45:44 AM CDT Ryan De Los Santos MD CV ECHO PROCEDURES Final Result from Last 3 Months Insurance T MEDICARE Care Teams Glass Grinder Relationship Specialty Start Date End Date Kel Hope MD [address] [place], [place] [phone] PCP - General Internal Medicine 06/07/24
--- OUTSIDE RECORDS SUMMARY | 2024-09-27 10:42 | XMS_ITS | Clinical Summary ---
Author Organization [facility] Address [address] [place] [address] Care Team Providers Care Mirror Inspector Name Role Phone Raysa Miguel MD Primary Care Provider [phone] Jonna Moss ROLL FORGER- Unavailable Regan Lam MD Unavailable [phone] Shahid Mansfield MD Unavailable [phone] Allergies Active Allergy Reactions Criticality Noted Date [...] Status Comments Brother Alive Father (Age 54) [place] Maternal Grandfather Maternal Grandmother Mother (Age 67) [...] Colorectal Cancer Screening Colonoscopy (10 Years) 1960 Hepatitis C 09/19/1977 DTaP, Tdap and Td [...] patient's age to complete this topic Insurance [facility] Care Teams Mirror Inspector Relationship Specialty [place] [address] [place] [address] [place] [phone] PCP - General FAMILY PRACTICE 04/22/16 Jonna Moss, ROLL FORGER- [address] [place] [address] NURSE PRACTITIONER 04/22/16 Regan Lam MD [address] [place] [address] CARDIOVASCULAR DISEASE 04/22/16 Shahid Mansfield MD [address] [place] [phone] ORTHOPAEDIC SURGERY 04/22/16
--- OUTSIDE RECORDS SUMMARY | 2024-09-27 10:42 | XMS_ITS | Encounter Summary ---
Author Organization [facility] Address [facility] [place] [address] Care Team Providers Care Computer Networking Instructor Adjunct Name Role Phone Raysa Miguel MD Primary Care Provider [phone] Jonna Moss [facility]- Unavailable Regan Lam MD Unavailable [phone] Shahid Mansfield MD Unavailable [phone] Encounter Details Date Type Department Care Team (Late st Contact Info) Description 05/31/2021 Abstract [facility]-[address] [place] [address] [address] [place] [address] Abstract, Doc Prevea Social History Tobacco Use [...] medication documented in this encounter Care Teams Computer Networking Instructor Adjunct Relationship Specialty Start Date End [place] [address] PCP - General FAMILY PRACTICE 04/22/16 Jonna Moss, RADIATION TECHNICIAN[place] [address] NURSE PRACTITIONER 04/22/16 [place] [address] CARDIOVASCULAR DISEASE 04/22/16 Shahid Mansfield MD [address] [place] [id number] ORTHOPAEDIC SURGERY 04/22/16 documented as of this encounter
[2024-09-27 11:20] LABS: Alanine Aminotransferase 32 U/L (6-50); Albumin Level 3.7 g/dL (3.5-5.1); Alkaline Phosphatase 177 U/L (38-126); Anion Gap 5 mmol/L (4-12); Aspartate Amino Transferase 35 U/L (17-59); Bilirubin,Total 0.8 mg/dL (0.2-1.3); Blood Urea Nitrogen 20 mg/dL (9-20); Calcium 9.1 mg/dL (8.4-10.2); Carbon Dioxide 28 mmol/L (22-30); Chloride 104 mmol/L (98-107); Estimated Glomerular Filt Rate 48; Glucose 118 mg/dL (65-110); Osmolality Calculated 287 mOsm/kg (285-295); Potassium 4.4 mmol/L (3.4-5.0); Sodium 137 mmol/L (137-145); Total Protein 7.1 g/dL (6.3-8.2)
== END 2024-09-27 10:39 | disposition home or self-care (01) ==
LOC: CHSLAB 10:40
PROVIDERS: PCP Internal Medicine; Visit Provider Internal Medicine
DX: N17.9 Acute kidney failure, unspecified (principal)
CPT/HCPCS: 36415; 80053

== ENCOUNTER 2024-10-02 02:47 | Day surgery (SDC) | payer MEDICARE, SELFPAY ==
[2024-10-01 12:09] VITALS: BMI 36.5
[2024-10-02] VITALS (14 sets, daily range): BP systolic 101–156; BP diastolic 67–108; PULSE 99–123; RESP 14–19; TEMP 36.4; O2SAT 91–100; BMI 36.5
--- OUTSIDE RECORDS SUMMARY | 2024-10-02 02:50 | XMS_ITS | Encounter Summary ---
Author Organization [facility] Address [facility] [place] [address] Care Team Providers Care 3D Technologist Name Role Phone Raysa Miguel MD Primary Care Provider [phone] Jonna Moss [facility]- Unavailable Regan Lam MD Unavailable [phone] Shahid Mansfield MD Unavailable [phone] Encounter Details Date Type Department Care Team (Late st Contact Info) Description 05/31/2021 Abstract [facility]-[address] [place] [address] [place] [address] Abstract, Doc Prevea Social History Tobacco Use [...] medication documented in this encounter Care Teams 3D Technologist Relationship Specialty Start Date End Date [place] [address] PCP - General FAMILY PRACTICE 04/22/16 Jonna Moss, TOBACCO PREVENTION HEALTH EDUCATOR[place] [address] NURSE PRACTITIONER 04/22/16 [place] [address] CARDIOVASCULAR DISEASE 04/22/16 Shahid Mansfield MD [address] [place] [id number] ORTHOPAEDIC SURGERY 04/22/16 documented as of this encounter
--- OUTSIDE RECORDS SUMMARY | 2024-10-02 02:50 | XMS_ITS | Encounter Summary ---
Author Organization [facility] Address [address] [place] [address] Care Team Providers Care Training Executive Name Role Phone Kel Hope MD Primary Care Provider [phone] Encounter Details Date Type Department Care Team (Late st Contact Info) Description 07/04/2024 Orders Only [facility] Health Information Management [address] [place] [phone] Scanning, Provider Social History Tobacco Use [...] on filedocumented in this encounter Care Teams Training Executive Relationship Specialty Start Date End Date Kel Hope MD [address] [place] [address] PCP - General Internal Medicine 06/07/24 documented as of this encounter
--- OUTSIDE RECORDS SUMMARY | 2024-10-02 02:50 | XMS_ITS | Clinical Summary ---
Author Organization [facility] [address] Address [address] [place] [address] Care Team Providers Care Stunt Woman Name Role Phone Kel Hope MD Primary Care Provider [phone] Allergies Active Allergy Reactions Criticality Noted Date Comments [place]-3 Fatty Acids Other (See comments) 2024 Indigestion Lisinopril Muscle pain Medium 06/19/2024 Niacin Itching Low 06/19/2024 Medications irbesartan (AVAPRO) 150 mg tablet Take 1 tablet (150 mg total) by mouth nightly Active doxycycline monohydrate 50 mg tablet Take [...] 90 capsule 3 5 09/20/[address] (CYMBALTA) 20 mg capsule Take 1 capsule (20 mg total) by mouth 2 (two) times a day 5 Active folic acid (FOLVITE) 1 mg tablet Take 1 tablet (1,000 mcg total) by mouth daily 5 Active hydroCHLOROthiaz lolly (HYDRODIURIL) 25 mg tablet Take 1 tablet (25 mg total) by mouth daily 09/20/19 25 Discontinu ed(Alterna te therapy) amLODIPine (NORVASC) 10 mg tablet Take 1 tablet (10 mg total) by mouth daily 10/02/19 25 Discontinu ed(Therapy completed) dilTIAZem XR 240 mg 24 hr capsule [...] Encounters Date Type Department Care Team Description 10/01/2024 8:15 AM CDT Office Visit [facility] Cardiology at [address] [place] [address] Yoandy Dhillon MD Chronic systolic congestive heart failure (HCC) (Primary Dx); Mixed hyperlipidemia; Essential hypertension; Cardiomyopathy, unspecified type (HCC); Persistent atrial fibrillation (HCC); DANIEL (obstructive sleep apnea) 2024 8:30 AM CDT Ancillary Procedure [facility] Cardiology at [address] [place] [address] Atrial fibrillation, unspecified type (HCC); Cardiomyopathy, unspecified type (HCC); Systolic congestive heart failure, unspecified HF chronicity (HCC) 09/19/2024 1:30 PM CDT Office Visit [facility] [address] [place] [address] [place] [phone] Leodan Rojo MD Paroxysmal atrial fibrillation (HCC) (Primary Dx) 09/19/2024 Telephone [facility] [address] [place] [address] [place] [phone] Yoandy Dhillon MD 09/05/2024 Orders Only [facility] [address] [place] [address] [place] [phone] Leodan Rojo MD 09/03/2024 Orders Only [facility] [address] [place] [address] [place] [phone] Taylor Geiger MD 09/02/2024 Telephone [facility] Cardiology at [address] [place] [address] Leodan Rojo MD 08/30/2024 Orders Only [facility] [address] [place] [address] [place] [phone] Taylor Geiger MD 08/27/2024 Telephone [facility] [address] [place] [address] [place] [phone] Yoandy Dhillon MD 07/29/2024 11:00 AM CDT Ancillary Procedure [facility] Cardiology at [address] [place] [address] Paroxysmal atrial fibrillation (HCC) 07/29/2024 10:30 AM CDT Office Visit [facility] Cardiology at [address] [place] [phone] Yoandy Dhillon MD Bilateral lower extremity edema (Primary Dx); DANIEL (obstructive sleep apnea); Paroxysmal atrial fibrillation (HCC); Essential hypertension; Mixed hyperlipidemia; Morbid obesity with BMI of 40.0-44.9, adult (HCC); Alcohol abuse; Cardiomyopathy, unspecified type (HCC); Systolic congestive heart failure, unspecified HF chronicity (HCC) 07/26/2024 Telephone [facility] Cardiology [address] [place] [phone] Yoandy Dhillon MD 07/10/2024 Telephone [facility] [address] [place] [address] Yoandy Dhillon MD 07/04/2024 Orders Only [facility] Health Information Management [address] [place] [phone] Scanning, Provider from Last 3 Months Surgical History Surgery [...] Sign Reading Time Taken Comments Blood Pressure 80/48 10/01/2024 8:18 AM CDT Pulse 111 10/01/2024 8:18 AM CDT Temperature - - Respiratory Rate - - Oxygen Saturation 94% 10/01/2024 8:18 AM CDT Inhaled Oxygen Concentration - - Weight 102.5 kg (226 lb) 10/01/2024 8:18 AM CDT Height 167.6 cm (5' 6) 10/01/2024 8:18 AM CDT Body Mass Index 36.48 10/01/2024 8:18 AM CDT Plan of Treatment Health Maintenance Due Date Last Done Comments Colon Cancer Screening-Colonoscopy 1960 Depression Screening 1960 Fall Risk Assessment 1960 Hepatitis C Screening 1960 Prostate Cancer Screening-PSA 1960 Hepatitis B Screening 09/19/1977 Pneumococcal vaccine 65+ (2 of 2 - PPSV23, PCV20, or PCV21) 05/09/2017 03/14/2017 Covid-19 Vaccine (5 - 2023-2 5 season) 2023 11/11/2021, 12/25/2020, 04/24/2020, Additional history exists Abdominal Aortic Aneurysm (A AA) Screen 09/19/2024 Well Visit 65+ 09/19/2024 DTaP/Tdap/Td Vaccine (2 - Td or Tdap) 10/13/2024 10/13/2014 Influenza Vaccine (#1) 2024 , 11/11/2021, 03/16/2020 Zoster Vaccine Completed 09/07/2023, 01/10/2023 Procedures Procedure Name Priority Date/Time Associated Diagnosis Comments SCAN - LABS 09/27/2024 9:28 PM CDT NM MPI SPECT (REST AND/OR STRESS) MULTIPLE [...] SCAN - LABS 07/04/2024 9:28 PM CDT from Last 3 Months Results * SCAN - LABS (09/27/2024 9:28 PM CDT) us Provider Scanning Final Result * NM MPI SPECT (Rest and/or Stress) Multiple Studies (2024 9:49 AM CDT) Anatomical Region Laterality Modality Body N/A Electrocardiogra phy 2024 8:30 AM CDT Narrative 2024 12:51 PM CDT [facility] Cardiology [address] [address] [address] [facility] [address] [address] [address] [place] [address] P:[phone] P:[phone] MPI Imaging Report Patient Name: YAJAIRA MAGUIRE R : 1960 Study Date: 2024 8:30:00 AM Gender: M Tech: SUNG ALVA Location: [facility] Provider: TAYLOR GEIGER Height(Cm): 167.6 BSA: Weight(Kg): 118.4 Heart Rate: 132 BMI: 42.15 Order Provider: TAYLOR GEIGER PHYSICIAN: Primary Care Physician: Dr. Hope. [facility] Physician: Mynor Dhillon M.D. Stress Supervision: Isai Alexander M.D.,Mabel Stress Interpreting Physician: Isai Alexander M.D.,Mabel Image Interpreting Physician: Isai Alexander M.D.,Mabel PROCEDURES: Pharmacologic SPECT Report: Myocardial perfusion imaging [...] attenuation. Electronically Signed By: Isai Alexander MD, [facility] 2024 12:47:29 PM CDT Electronically Signed By: Isai Alexander MD, [facility] 2024 12:47:29 PM CDT Procedure Note Isai Alexander MD - 2024 [facility] Cardiology [address], [place] [address] [address] [facility] [address], [place] [address], [place] [address] P:[phone] P:[phone] MPI Imaging Report Patient Name: YAJAIRA MAGUIRE R : 1960 Study Date: 2024 8:30:00 AM Gender: M Tech: SUNG ALVA Location: [facility] Provider: TAYLOR GEIGER Height(Cm): 167.6 BSA: Weight(Kg): 118.4 Heart Rate: 132 BMI: 42.15 Order Provider: TAYLOR GEIGER PHYSICIAN: Primary Care Physician: Dr. Hope. [facility] Physician: yMnor Dhillon M.D. Stress Supervision: Isai Alexander M.D.,F.A.C.C. Stress Interpreting Physician: Isai Alexander M.D.,F.A.C.C. Image Interpreting Physician: Isai Alexander M.D.,F.A.C.C. PROCEDURES: Pharmacologic SPECT Report: Myocardial perfusion imaging [...] attenuation. Electronically Signed By: Isai Alexander MD, [facility] 2024 12:47:29 PM CDT Electronically Signed By: Isai Alexander MD, [facility] 2024 12:47:29 PM CDT Taylor Geiger MD IMG NM PROCEDURES Final Res ult * Cardiology Document Scan (09/04/2024 2:56 PM CDT) Anatomical Region Laterality Modality Other Leodan Rojo MD [facility] PROCEDURES F inal Result * Cardiology Document Scan (09/02/2024 5:59 PM CDT) Anatomical Region Laterality Modality Other us Leodan Rojo MD [facility] PROCEDURES F inal Result * Cardiology Document Scan (08/29/2024 5:57 PM CDT) Anatomical Region Laterality Modality Other Result [facility] us Taylor Geiger MD CV CARDIAC [...] phy Narrative 08/02/2024 3:32 PM CDT AMBULATORY SIGNAL HELPER REPORT Patient Name: Yajaira Tran Date of : 1960 Requesting Physician: Dr. Dhillon Date of interpretation: 08/02/24 Type of monitor [...] was used to complete this document, therefore, molded parts inspector variances may occur. Yoandy Dhillon MD, [facility] 08/02/24 Yoandy Dhillon MD [facility] PROCE MADDY Final Result * POCT lipid panel (07/29/2024 10:25 AM CDT) Cholesterol, POC 174 <200 MG/DL HDL, POC 80 >=40 mg/dL Triglycerides, POC 65 <=149 mg/dL LDL Cholesterol POC 81 <=129 mg/dL Chol/HDL Ratio, POC 2.2 NONE Non-HDL Cholesterol, POC 94 NONE mg/dL Cholesterol Total, POC 174 30 - 199 mg/dL Capillary blood 07/29/2024 1 0:25 AM CDT Yoandy Dhillon MD POINT OF CARE TEST ORDERA BLES Final Result * SCAN - LABS (07/04/2024 9:28 PM CDT) Provider Scanning Final Result from Last 3 [place] [address] [facility] MEDIC[facility] Address: [facility] [id number] [place] [address] Care Teams Stunt Woman Relationship Specialty Start Date End Date Kel Hope MD [address] [place] [address] PCP - General Internal Medicine 06/07/24
--- OUTSIDE RECORDS SUMMARY | 2024-10-02 02:50 | XMS_ITS | Encounter Summary ---
Author Organization [facility] Healthcare Address [address] [place] [address] Care Team Providers Care Precision Dancer Name Role Phone Kel Hope MD Primary Care Provider [phone] Reason for Visit * Reason Comments Atrial Fibrillation Congestive Heart Failure To discuss LAAO procedure. Encounter Details Date Type Department Care Team (Late st Contact Info) Description 10/01/2024 8:15 AM CDT Office Visit [facility] Cardiology at [address] [place] [address] Yoandy Dhillon MD [address] [facility] [address] [place] [address] [facility] [address] [place] [address] Chronic systolic congestive heart failure (HCC) (Primary Dx); Mixed hyperlipidemia; Essential hypertension; Cardiomyopathy, unspecified type (HCC); Persistent atrial fibrillation (HCC); DANIEL (obstructive sleep apnea) Social History Tobacco Use Types Packs/Day Years Used Date Smoking Tobacco: Former Cigarettes Q uit: 1996 Smokeless Tobacco: Never Sex and Gender Information Value Date Recorded Sex Assigned at Not on file Legal Sex Male 2:17 PM CDT Gender Identity Not on file Sexual Orientation Not on file documented as of this encounter Last Filed Vital Signs Vital Sign Reading [...] Mass Index 36.48 10/01/2024 8:18 AM CDT documented in this encounter Progress Notes * Yoandy Dhillon MD - 10/01/2024 8:15 AM CDT Images from the original note were not included. [facility]-Cardiology DATE OF VISIT: 10/01/2024 CHIEF COMPLAINT Chief Complaint Patient presents with Atrial Fibrillation Congestive Heart Failure To discuss LAAO procedure. HPI Jose Davidson is a 64 y.o. male with atrial fibrillation. Patient referred I am seeing the patient in consultation at the request of Dr. Hope for further workup evaluation workup and treatmentof atrial fibrillation. Atrial fibrillation initially diagnosed in 2014. He did undergo an ablationat that time. Over the past couple of months he has not been feeling very well. He has been extremely weak. Does not have lot of energy. Does have a diagnosis of sleep apnea and hypersomnolence that is not being treated. Drinks 4-8 alcoholic beverages daily either whiskey and Coke or vodka and orange juice. Does have shortness of breath which is not particularly new but is dyspneic with very minimal activity even walking around the house. It has been present for about 6 months. He has no chest pain. Does have worsening lower extremity edema which is dependent in nature. No paroxysmal nocturnal dyspnea but does have some palpitations on occasion with activity but his heart does not beat fast. No syncope he does feel lightheaded at times. Follow-up note 07/29/2024: His legs are a little less swollen but otherwise he feels about the same. Feels weak, has dyspnea with exertion of walking around the house. Heart rate at home is in the low 100s. He is off of his anticoagulation per GI. He does have some mild anemia but not scheduled for colonoscopy and endoscopy until August. No chest pain, syncope, presyncope, paroxysmal nocturnal dyspnea or orthopnea. Follow-up note 10/01/2024: He was hospitalized in August for atrial fibrillation with rapid ventricular response, elevated troponin, CHF. He has quit drinking completely. He did have a endoscopy which did show some erosions. He has been dealing with low blood pressure. Amlodipine has been stopped. Oflosartan on hold. Jardiance also on hold over the past couple of days and he has been having diarrhea over the past 3 days also. He denies any chest pain, shortness of breath, syncope, paroxysmal nocturnal dyspnea, orthopnea or palpitations. MEDICAL HISTORY Past Medical History: Diagnosis Date Acute kidney failure Anemia Atrial fibrillation (HCC) Hyperlipidemia Hypertension Sleep apnea Social History Tobacco Use Smoking status: Former Current packs/day: 0.00 Types: Cigarettes Quit date: 1996 Years since quittin.6 Smokeless tobacco: Never Substance and Sexual Activity Drug use: None Sexual activity: None Alcohol Use: Not on file Family History Problem Relation Age of Onset Hyperlipidemia Mother Hypertension Mother Other (cva) Mother Coronary artery disease Mother Heart disease Father Hypertension Father Arrhythmia Brother Coronary artery disease Brother Sleep apnea Brother MEDICATIONS Medication List Accurate as of October 01, 2024 8:27 AM. If you have any questions, ask your nurse or doctor. CONTINUE taking these medications amLODIPine 10 mg tablet Commonly known as: NORVASC apixaban 5 mg tablet Commonly known as: ELIQUIS Take 1 tablet (5 mg total) by mouth 2 (two) times a day dilTIAZem XR 240 mg 24 hr capsule Commonly known as: CARDIZEM CD,DILACOR XR Take 1 capsule (240 mg total) by mouth every morning doxycycline monohydrate [address] 20 mg capsule Commonly known as: CYMBALTA empagliflozin 10 mg tablet Commonly known as: JARDIANCE Take 1 tablet (10 mg total) by mouth daily folic acid 1 mg tablet Commonly known as: FOLVITE furosemide 20 mg tablet Commonly known as: LASIX Take 1 tablet (20 mg total) by mouth daily irbesartan 150 mg tablet Commonly known as: AVAPRO lovastatin 40 mg tablet Commonly known as: MEVACOR multivitamin with minerals tablet omega-3 fatty acids-fish oil 300-1,[address] 40 mg EC tablet Commonly known as: PROTONIX propranolol LA 120 mg 24 hr capsule Commonly known as: INDERAL LA ALLERGIES Allergies Allergen Reactions Lisinopril Muscle pain Fish Oil [Ava-3 Fatty Acids] Other (See comments) Indigestion Niaspan Extended-Release [Niacin] Itching REVIEW OF SYSTEMS Review of Systems Constitutional: Negative for weight gain and weight loss. HENT: Negative for hearing loss. Eyes: Negative for blurred vision and visual disturbance. Cardiovascular: Positive for dyspnea on exertion and leg swelling. Negative for chest pain, claudication, irregular heartbeat, near-syncope, orthopnea, palpitations, paroxysmal nocturnal dyspnea and syncope. Respiratory: Positive for shortness of breath. Negative for cough, hemoptysis, snoring, sputum production and wheezing. Endocrine: Negative for cold intolerance, heat intolerance and polyuria. Hematologic/Lymphatic: Does not bruise/bleed easily. Skin: Negative for color change and rash. Musculoskeletal: Negative for falls, joint pain, joint swelling and myalgias. Gastrointestinal: Negative for abdominal pain, heartburn, nausea and vomiting. Genitourinary: Negative for dysuria. Neurological: Positive for weakness. Negative for dizziness, focal weakness, headaches, light-headedness and numbness. Psychiatric/Behavioral: Negative for depression. The patient is not nervous/anxious. Allergic/Immunologic: Negative for environmental allergies. All other systems reviewed and are negative. PHYSICAL EXAM Blood pressure (!) 80/48, pulse 111, height 167.6 cm (5' 6), weight 102.5 kg (226 lb), SpO2 94%. Body mass index is 36.48 kg/m??. Physical Exam Vitals reviewed. Constitutional: Appearance: Normal appearance. HENT: Head: Normocephalic and atraumatic. Nose: Nose normal. Eyes: General: No scleral icterus. Conjunctiva/sclera: Conjunctivae normal. Cardiovascular: Rate and Rhythm: Normal rate. Rhythm irregular. Pulses: Intact distal pulses. Heart sounds: Normal heart sounds. No murmur heard. No friction rub. No gallop. Pulmonary: Effort: Pulmonary effort is normal. No respiratory distress. Breath sounds: Normal breath sounds. No wheezing or rales. Chest: Chest wall: No tenderness. Abdominal: General: Bowel sounds are normal. There is no distension. Palpations: Abdomen is soft. Tenderness: There is no abdominal tenderness. Musculoskeletal: General: Swelling present. Normal range of motion. Cervical back: Neck supple. Comments: 2+ bilateral lower extremity edema Skin: General: Skin is warm and dry. Neurological: Mental Status: He is alert and oriented to person, place, and time. Psychiatric: Mood and Affect: Mood normal. LABS AND OTHER DIAGNOSTIC TESTS No results found for: WBC, HGB, HCT, MCV, PLT Chemistry No results found for: SODIUM, POTASSIUM, CHLORIDE, CO2, BUNSER, CREATININE, GLUCOSE No results found for: CALCIUM, ALKPHOS, AST, ALT, BILITOT No results found for: CHOL No results found for: HDL No results found for: LDL] No results found for: LDLCALC No results found for: TRIG No results found for: CHOLHDL EKG 06/05/2024: AFib, right axis deviation. Abnormal EKG EKG 06/19/2024: Atrial fibrillation, poor R-wave progression. Abnormal EKG Echo 06/29/2024 Mild concentric left ventricular hypertrophy. Mild enlargement of left ventricle cavity. Mild global left ventricular systolic dysfunction. Diastolic dysfunction is present. Ejection fraction is measured at 45 %. There is mild enlargement of left atrium. Mild mitral valve regurgitation. Estimated peak RVSP is 45 mmHg. Mild tricuspid regurgitation. Mild pulmonic regurgitation. Atrial fibrillation with heart rates 100-110 beats per minute. MPI 2024 Atrial fibrillation , low QRS voltage. No [...] attenuation artifact. Artifact due to diaphragmatic attenuation. ASSESSMENT Diagnoses and all orders for this visit: Essential hypertension (Primary) At goal Atrial fibrillation, persistent (HCC) Recurrent. Back on anticoagulation Mixed hyperlipidemia At goal Morbid obesity with BMI of 40.0-44.9, adult (HCC) Much improved Morbid obesity (HCC) Improved Bilateral lower extremity edema Much improved DANIEL (obstructive sleep apnea) - Portable/Home Sleep Study; Future Untreated Alcohol abuse Stopped and congruent Cardiomyopathy, unspecified type EF 45% Systolic congestive heart failure, unspecified heart failure, Atrial fibrillation versus alcohol versus other as etiology. Better compensate PLAN/RECOMMENDATIONS He is hypotensive. Also having symptoms of orthostasis. May have some autonomic dysfunction from chronic alcohol use but also not eating and drinking as much like he typically does. He is congratulated on stopping drinking. He is scheduled for a CHELE guided cardioversion tomorrow. We will have him hold his propanolol and diltiazem tomorrow. Continue Eliquis. Long-term he is not a good candidate for anticoagulation given his recurrent anemia. I do recommenda left atrial appendage occluder device to be implanted hopefully this fall. Follow-up in five weeks or sooner as clinically indicated Yoandy Dhillon MD, [facility] documented in this encounter Plan of Treatment Not on file documented as of this encounter Visit Diagnoses Diagnosis Chronic systolic congestive heart failure (HCC)- Primary Mixed hyperlipidemia Essential hypertension Unspecified essential hypertension Cardiomyopathy, unspecified type (HCC) Persistent atrial fibrillation (HCC) Atrial fibrillation DANIEL (obstructive sleep apnea) Obstructive sleep apnea (adult) (pediatric) documented in this encounter Discontinued Medications Medication Sig Discontinue Reason Start Date End Da te amLODIPine (NORVASC) 10 mg tablet Take 1 tablet (10 mg total) by mouth daily Therapy completed 10/01/2024 documented as of this encounter Historical Medications * This list may reflect changes made after this encounter. folic acid (FOLVITE) 1 mg tablet Take 1 tablet (1,000 mcg total) by mouth daily 09/06/[address] (CYMBALTA) 20 mg capsule Take 1 capsule (20 mg total) by mouth 2 (two) times a day 09/27/2024 added in this encounter Care Teams Precision Dancer Relationship Specialty Start Date End Date Kel Hope MD [address] [place] [address] PCP - General Internal Medicine 06/07/24 documented as of this encounter
--- OUTSIDE RECORDS SUMMARY | 2024-10-02 02:50 | XMS_ITS | Clinical Summary ---
Author Organization [facility] Address [address] [place] [address] Care Team Providers Care Placement Manager Name Role Phone Raysa Miguel MD Primary Care Provider [phone] Jonna Moss BOAT DRIVER- Unavailable Regan Lam MD Unavailable [phone] Shahid Mansfield MD Unavailable [phone] Allergies Active Allergy Reactions Criticality Noted Date [...] Status Comments Brother Alive Father (Age 54) [place] Maternal Grandfather Maternal Grandmother Mother (Age 67) [...] [facility] Care Teams Placement Manager Relationship Specialty [place] [address] [place] [address] [place] [phone] PCP - General FAMILY PRACTICE 04/22/16 Jonna Moss, BOAT DRIVER- [address] [place] [address] NURSE PRACTITIONER 04/22/16 Regan Lam MD [address] [place] [address] CARDIOVASCULAR DISEASE 04/22/16 Shahid Mans[place] MD [address] [place] [id number] ORTHOPAEDIC SURGERY 04/22/16
--- OUTSIDE RECORDS SUMMARY | 2024-10-02 02:50 | XMS_ITS | Encounter Summary ---
Author Organization [facility] Address [address] [place] [address] Care Team Providers Care Employee Adviser Name Role Phone Raysa Miguel MD Primary Care Provider [phone] Jonna Moss [facility]- Unavailable Regan Lam MD Unavailable [phone] Shahid Mansfield MD Unavailable [phone] Encounter Details Date Type Department Care Team (Late st Contact Info) Description 05/06/2017 Abstract [facility] CONVERSION [address] [place], [place] [id number] , Generic Conversion, Social History Tobacco Use [...] Rule Out 01/31/2021 01/31/2021 01/31/2021 6:37 PM TRANSPORTATION MAINTENANCE WORKER COVID-19 Rule Out 05/16/2021 05/16/2021 05/16/2021 6:33 PM CDT documented as of this encounter Care Teams Employee Adviser Relationship Specialty Start Date End Date Raysa Miguel MD [address] [place] [address] PCP - General FAMILY PRACTICE 04/22/16 Jonna Moss, [facility] [place] [address] NURSE PRACTITIONER 04/22/16 Regan Lam MD [facility] [place] [address] CARDIOVASCULAR DISEASE 04/22/16 Shahid Mans[place] MD [address] [place] [id number] ORTHOPAEDIC SURGERY 04/22/16 documented as of this encounter
--- OUTSIDE RECORDS SUMMARY | 2024-10-02 02:50 | XMS_ITS | Clinical Summary ---
Author Organization [facility] Address [address] [place] [address] Care Team Providers Care Music Specialist Name Role Phone Unavailable Primary Care Provider [...]
--- NOTE | 2024-10-02 07:00 | ECG_ITS ---
Test Date: 2024-10-02 07:20:26 Measurements Intervals [place] Rate: 115 P: 0 PA: 0 QRS: 32 QRSD: 99 T: -64 QT: 312 QTc: 433 Interpretive Statements ATRIAL FIBRILLATION WITH RAPID VENTRICULAR RESPONSE WITH FREQUENT VENTRICULAR PREMATURE COMPLEXES DELAYED PRECORDIAL R/S TRANSITION BORDERLINE ST-T WAVE ABNORMALITY- DIFFUSE LEADS ABNORMAL ECG Compared to ECG 08/25/2024 21:04:03 HEART RATE HAS DECREASED VENTRICULAR PREMATURE COMPLEXES NOW PRESENT Electronically Signed On 10-02-2024 07:49:15 CDT by Ziggy Alegria D.O.
[2024-10-02 08:07] LABS: Anion Gap 10 mmol/L (4-12); Blood Urea Nitrogen 16 mg/dL (9-20); Calcium 9.2 mg/dL (8.4-10.2); Carbon Dioxide 24 mmol/L (22-30); Chloride 98 mmol/L (98-107); Estimated CRCL calculation 64 ml/min; Estimated Glomerular Filt Rate > 60; Glucose 120 mg/dL (65-110); Magnesium 1.4 mg/dL (1.6-2.3); Potassium 3.9 mmol/L (3.4-5.0); Sodium 132 mmol/L (137-145)
--- NOTE | 2024-10-02 08:36 | WPDMODSED ---
Moderate Sedation Note-Pt Data Patient Data Diagnosis: atrial fibrillatiomn Present Complaint: atrial fibrillation Procedure to be performed/Plan: CHELE/CV moderate sedation Allergies Allergy/AdvReac Type Severity Reaction Status Date / Time azithromycin Allergy Unknown Verified 10/02/24 07:24 ezetimibe (From Vytorin) Allergy Unknown Verified 10/02/24 07:24 niacin (From Niaspan Allergy Hives Verified 10/02/24 08:02 Extended-Release) simvastatin (From Vytorin) Allergy Unknown Verified 10/02/24 07:24 lisinopril AdvReac Severe Weakness Verified 10/02/24 07:24 Home Medications ?Medication ?Instructions ?Recorded ?Confirmed ?Type furosemide 20 mg tablet 20 mg PO DAILY 08/26/24 10/01/24 History lovastatin 40 mg tablet 40 mg PO HS 08/26/24 10/01/24 History magnesium 200 mg tablet 400 mg PO DAILY 08/26/24 10/01/24 History multivitamin (Daily Multi-Vitamin 1 tablet PO DAILY 08/26/24 10/02/24 History tablet) omega 3-lhd-qpl-fish oil 100 2 cap PO BID 08/26/24 10/01/24 History mg-160 mg-1,000 mg capsule (Fish Oil) pantoprazole 40 mg tablet,delayed 40 mg PO BID 08/26/24 10/01/24 History release propranolol 120 mg capsule,24 120 mg PO HS 08/26/24 10/01/24 History hr,extended release diltiazem HCl 240 mg 240 mg PO QAM #30 caps 09/06/24 10/01/24 Rx capsule,extended release 24 hr, controlled empagliflozin 10 mg tablet 10 mg PO DAILY #30 tabs 09/06/24 10/01/24 Rx (Jardiance) folic acid 1 mg tablet 1 mg PO DAILY 30 days #30 tabs 09/06/24 10/02/24 Rx potassium chloride 20 mEq oral 40 meq PO DAILY #7 ea 09/06/24 10/01/24 Rx packet apixaban 5 mg tablet (Eliquis) 5 mg PO Q12H 10/01/24 10/02/24 History Current Medications: Active Medications Sodium Chloride (Normal Saline Iv) 1,000 mls @ 30 mls/hr IV CONT .Q24H PA Magnesium Sulfate (Magnesium Sulf 4 Gm/[id number]) 4 gm in 100 mls @ 25 mls/hr IVPB ONCE ONE Stop: 10/02/24 12:29 Sedation/Anesthesia: No previous sedation/anesthesia problems (including family history). [facility] Past Medical History Medical History (Updated 09/29/24 @ 20:21 by Alex Barry MD) Occult blood in stools Acute on chronic anemia Alcoholic hepatitis GERD (gastroesophageal reflux disease) Hyperlipidemia Hypertension Alcohol abuse Hypermagnesemia Family History Family History Father Acute myocardial infarction Mother Cerebrovascular accident Social History Social History Smoking packs per day: 2 Smoking cigarettes per day: 40.0 Years smoked: 30 Smoking pack-years: 60.00 Smoking status: Former smoker Tobacco type: cigarettes Second hand tobacco smoke exposure: No Smoking end date: 02/20/06 Alcohol intake: former Drinks per week: 48 Substance use: never Substance use type: does not use Do You Feel Safe in your Home?: Yes Lack of Transportation: No Lack of Food: Never True Current Housing: I Have Housing Concerned About Future Housing: No Difficulty Paying Gas/Electric Bills: No Difficulty Paying for Meds: No Currently Unemployed: No Education: High School Diploma/GED Difficulty w/ Childcare or Family Care: No Living arrangements: alone Gender identity (if verbalized by the patient): Male Sexual Orientation (if Verbalized by the Patient): Straight or Heterosexual Spiritual care concerns: No Mod Sed Physical Exam Physical Exam Pre Procedural Exam: Normal: Appearance, Eyes, Ears, Nose, Neck, Throat, Airway, Lungs, Heart Size, Neuro Exam, Extremities and Skin and Variation: Heart Rate (tachy) and Heart Rhythm (IR/IR) Hours since solid foods: 12 Hours since liquid intake: 12 Mallampati Classification: class II Internal Medicine - PN: Obj Da Vital Signs Vital Signs: Vital Signs - 24 hr 10/02/24 07:26 Temperature 36.4 C Pulse Rate 119 H Respiratory Rate 17 Blood Pressure 156/108 H Pulse Oximetry 98 Oxygen Delivery Room Air Meds/Results Medications: Active Medications Generic Name Dose Route Start Last Admin Trade Name Freq PRN Reason Stop Dose Admin Sodium Chloride 1,000 mls @ 30 mls/hr 10/02/24 07:00 Normal Saline Iv IV CONT .Q24H PA Magnesium Sulfate 4 gm in 100 mls @ 25 mls/hr 10/02/24 08:30 Magnesium Sulf 4 Gm/[id number] IVPB 10/02/24 12:29 ONCE ONE Labs 10/02/24 07:40 Labs: Laboratory Results - last 24 hr 10/02/24 07:40 Sodium 132 L Potassium 3.9 Chloride 98 Carbon Dioxide 24 Anion Gap 10 BUN 16 Creatinine 1.15 Estim Creat Clear Calc 64 Estimated GFR > 60 Glucose 120 H Calcium 9.2 Magnesium 1.4 L ASA Classification/Sedation ASA Classification/Sedation ASA Class: II Emergent: No Risks: Risks, benefits and alternatives explained and patient/family accepted plan for sedation. Patient re-evaluated immediately prior to sedation.
[2024-10-02] MEDS: MAGNESIUM SULF 4 GM/WATER100ML 4 GM/100 ML BAG IVPB (08:39)
--- NOTE | 2024-10-02 08:39 | WPDHPUPDATE1 ---
History and Physical Update Update Date/Time: 10/02/24 08:39 History and Physical has been reviewed, including an updated exam of the patient. There are NO changes in the patient's condition. Risks, benefits, and alternatives have been discussed and questions answered. Patient agrees to proceed with procedure.
--- NOTE | 2024-10-02 08:39 | PM.IMHP ---
H&P: HPI History of Present Illness Date/Time: 10/02/24 08:39 Chief Complaint: Atrial fibrillation Review of Systems Review of Systems: All systems reviewed & are unremarkable except as noted in HPI and below Constitutional: Constitutional: Denies body ache(s) Eyes: Eyes: Denies blurry vision ENT: Reports Normal hearing present [facility] Past Medical History Medical History (Updated 09/29/24 @ 20:21 by Alex Barry MD) Occult blood in stools Acute on chronic anemia Alcoholic hepatitis GERD (gastroesophageal reflux disease) Hyperlipidemia Hypertension Alcohol abuse Hypermagnesemia Family History Family History Father Acute myocardial infarction Mother Cerebrovascular accident Social History Social History Smoking packs per day: 2 Smoking cigarettes per day: 40.0 Years smoked: 30 Smoking pack-years: 60.00 Smoking status: Former smoker Tobacco type: cigarettes Second hand tobacco smoke exposure: No Smoking end date: 02/20/06 Alcohol intake: former Drinks per week: 48 Substance use: never Substance use type: does not use Do You Feel Safe in your Home?: Yes Lack of Transportation: No Lack of Food: Never True Current Housing: I Have Housing Concerned About Future Housing: No Difficulty Paying Gas/Electric Bills: No Difficulty Paying for Meds: No Currently Unemployed: No Education: High School Diploma/GED Difficulty w/ Childcare or Family Care: No Living arrangements: alone Gender identity (if verbalized by the patient): Male Sexual Orientation (if Verbalized by the Patient): Straight or Heterosexual Spiritual care concerns: No Meds Home Medications and Allergies Home Medications ?Medication ?Instructions ?Recorded ?Confirmed ?Type furosemide 20 mg tablet 20 mg PO DAILY 08/26/24 10/01/24 History lovastatin 40 mg tablet 40 mg PO HS 08/26/24 10/01/24 History magnesium 200 mg tablet 400 mg PO DAILY 08/26/24 10/01/24 History multivitamin (Daily Multi-Vitamin 1 tablet PO DAILY 08/26/24 10/02/24 History tablet) omega 0-meh-tfd-fish oil 100 2 cap PO BID 08/26/24 10/01/24 History mg-160 mg-1,000 mg capsule (Fish Oil) pantoprazole 40 mg tablet,delayed 40 mg PO BID 08/26/24 10/01/24 History release propranolol 120 mg capsule,24 120 mg PO HS 08/26/24 10/01/24 History hr,extended release diltiazem HCl 240 mg 240 mg PO QAM #30 caps 09/06/24 10/01/24 Rx capsule,extended release 24 hr, controlled empagliflozin 10 mg tablet 10 mg PO DAILY #30 tabs 09/06/24 10/01/24 Rx (Jardiance) folic acid 1 mg tablet 1 mg PO DAILY 30 days #30 tabs 09/06/24 10/02/24 Rx potassium chloride 20 mEq oral 40 meq PO DAILY #7 ea 09/06/24 10/01/24 Rx packet apixaban 5 mg tablet (Eliquis) 5 mg PO Q12H 10/01/24 10/02/24 History Allergies Allergy/AdvReac Type Severity Reaction Status Date / Time azithromycin Allergy Unknown Verified 10/02/24 07:24 ezetimibe (From Vytorin) Allergy Unknown Verified 10/02/24 07:24 niacin (From Niaspan Allergy Hives Verified 10/02/24 08:02 Extended-Release) simvastatin (From Vytorin) Allergy Unknown Verified 10/02/24 07:24 lisinopril AdvReac Severe Weakness Verified 10/02/24 07:24 Vital Signs Vital Signs - 24 hr 10/02/24 07:26 Temperature 36.4 C Pulse Rate 119 H Respiratory Rate 17 Blood Pressure 156/108 H Pulse Oximetry 98 Oxygen Delivery Room Air Exam Narrative: Alert oriented Const: General: comfortable and no acute distress HENMT: Face/Nose/Sinus: Normal nares present Eyes: Sclera: sclerae normal Neck: Neck: supple and no JVD Chest: Other: No reproducible chest wall pain to palpation Resp: Effort & Inspection: normal respiratory effort Auscultation: clear to auscultation bilaterally Cardio: Rate: tachycardic Rhythm: abnormal rhythm GI: Inspection: non-distended GI Palp: Yes Soft to palpation Skin: General skin exam: normal color Neuro: General: gait normal Speech: normal speech Extrem: General: normal to inspection Psych: Mental Status: mental status grossly normal Affect: normal affect H&P: Results Labs Labs: [facility] 08/13/25 07:40 Sodium 132 L Potassium 3.9 Chloride 98 Carbon Dioxide 24 BUN 16 Creatinine 1.15 Glucose 120 H Calcium 9.2 Assessment and Plan Assessment and plan (1) Atrial fibrillation with rapid ventricular response: Code(s): I48.91 - Unspecified atrial fibrillation Status: Acute Plan Jesus guided cardioversion Moderate sedation
[2024-10-02] MEDS: MIDAZOLAM HCL (*CRX) 2 MG/2 ML VIAL 3 MG IV PUSH (10:10)
[2024-10-02] MEDS: fentaNYL CITRATE INJ (*CRX) 100 MCG/2 ML VIAL 50 MCG IV PUSH (10:10)
--- NOTE | 2024-10-02 10:22 | P.PCNTEE_ITS ---
CHELE TransEsophageal Echocardiogram Date of procedure: 10/02/24 Procedure Type: Multiplanar transesophageal echocardiography with color flow and pulse wave Doppler Moderate sedation Diagnosis: Atrial fibrillation Indications: atrial fibrillation Image Quality: Good Findings: After discussing risks, benefits alternatives of procedure patient agreeable via verbal and written informed consent. Risks discussed include esophageal rupture perforation, adverse reaction anesthesia, , skin irritation or burn, stroke, shocking into more problematic heart rhythm, bleeding, pain, infection, sore throat. After establishing continuous medical assistant instructor, pulse oxygenation serial blood pressure assessments, time-out was taken procedure was initiated. Procedure start time 10:10 a.m. Procedure stop time 10:18 a.m. Complications: None Blood loss: None Total of 3 mg of Versed and 50 mcg of fentanyl were given in divided doses. Medications remission patient was monitored by Peri chavez RN Echo scope was advanced into place and esophageal intubation was performed without difficulty. Echo scope was advanced into the mid esophagus where images were taken. At the conclusion procedure the echo scope was removed without complication Findings: Normal left ventricular size and function with ejection fraction of 65-70% with left ventricular hypertrophy noted. Normal right ventricular size and function. Mild to moderate left atrial enlargement. Mild enlargement right atrial size. Atrial septum appears to be grossly intact without color flow evidence of shunting. Mitral valve is normal with helped significant mitral regurgitation. Tricuspid valve also normal without significant tricuspid regurgitation. Pulmonic valve is normal with trivial pulmonic insufficiency. Aortic valve is trileaflet and minimally sclerotic. No pericardial effusion. Left atrial appendage is seen. there was concern of thrombus or mass in the left atrial appendage even though pulse-wave velocities are of 200 centimeters/second. Cardioversion not performed Conclusions: 1. Moderate sedation 2. Multiplanar transesophageal echocardiography with color-flow pulse-wave Doppler 3. Normal left ventricular size and function. Probable left atrial appendage thrombus. Biatrial enlargement Plan will be for continued anticoagulation and repeat attempt at cardioversion +/-CHELE in 6 weeks
--- NOTE | 2024-10-02 10:25 | SUR.PHASEII ---
MD Dhillon states to d/c propanolol and continue other medications. Jardiance was reported to be held by different provider so pt instructed to follow up with that provider on medication.
== END 2024-10-02 13:00 | disposition home or self-care (01) ==
PROVIDERS: PCP Internal Medicine; Visit Provider Internal Medicine Cardiovascular Disease
PROC: (CPT 93312; 2024-10-02 08:30)
DX: I48.91 Unspecified atrial fibrillation (principal); I10 Essential (primary) hypertension; D64.9 Anemia, unspecified; K21.9 Gastro-esophageal reflux disease without esophagitis; E83.41 Hypermagnesemia; Z79.84 Long term (current) use of oral hypoglycemic drugs; Z79.01 Long term (current) use of anticoagulants; Z87.891 Personal history of nicotine dependence; Z82.49 Family history of ischemic heart disease and other diseases of the circulatory system
CPT/HCPCS: 36415; 80048; 83735; 93312; 93320; 93325; J2250; J3010; J3475; J7030

== ENCOUNTER 2024-10-15 10:11 | Outpatient (CLI) | payer MEDICARE, SELFPAY ==
--- OUTSIDE RECORDS SUMMARY | 2024-10-15 10:39 | XMS_ITS | Clinical Summary ---
Author Organization [facility] Address [address] [place] [address] Care Team Providers Care Tnt Line Supervisor Name Role Phone Unavailable Primary Care Provider [...]
--- OUTSIDE RECORDS SUMMARY | 2024-10-15 10:39 | XMS_ITS | Encounter Summary ---
Author Organization [facility] Healthcare Address [address] [place] [address] Care Team Providers Care Library Media Specialist Name Role Phone Kel Hope MD Primary Care Provider [phone] Encounter Details Date Type Department Care Team (Late st Contact Info) Description 07/04/2024 Orders Only [facility] Health Information Management [address] [place] [address] Scanning, Provider Social History Tobacco Use [...] on filedocumented in this encounter Care Teams Library Media Specialist Relationship Specialty Start Date End Date Kel Hope MD [address] [place] [address] PCP - General Internal Medicine 06/07/24 documented as of this encounter
--- OUTSIDE RECORDS SUMMARY | 2024-10-15 10:39 | XMS_ITS | Clinical Summary ---
Author Organization [facility] [address] Address [address] [place] [address] Care Team Providers Care Lead Cargoman Name Role Phone Kel Hope MD Primary Care Provider [phone] Allergies Active Allergy Reactions Criticality Noted Date Comments Winston-3 Fatty Acids Other (See comments) 2024 Indigestion [...] Encounters Date Type Department Care Team Description 10/08/2024 Orders Only [facility] Cardiology [address] [place] [address] Leodan Rojo MD Atrial fibrillation, unspecified type (HCC) (Primary Dx) 10/07/2024 Orders Only [facility] Cardiology [address] [address] [place] [address] Yoandy Dhillon MD 10/07/2024 Telephone [facility] Cardiology at [address] [place] [address] Yoandy Dhillon MD 10/02/2024 Orders Only [facility] Health Information Management [address] [place] [address] Scanning, Provider 10/01/2024 8:15 AM CDT Office Visit [facility] Cardiology at [address] [place] [address] Yoandy Dhillon MD Chronic systolic congestive heart failure (HCC) (Primary Dx); Mixed hyperlipidemia; Essential hypertension; Cardiomyopathy, unspecified type (HCC); Persistent atrial fibrillation (HCC); DANIEL (obstructive sleep apnea) 2024 8:30 AM CDT Ancillary Procedure [facility] Cardiology at [address] [place] [address] Atrial fibrillation, unspecified type (HCC); Cardiomyopathy, unspecified type (HCC); Systolic congestive heart failure, unspecified HF chronicity (HCC) 09/19/2024 1:30 PM CDT Office Visit [facility] [address] [place] [address] [place] [phone] Leodan Rojo MD Paroxysmal atrial fibrillation (HCC) (Primary Dx) 09/19/2024 Telephone [facility] Cardiology [address] [place] [address] [place] [phone] Yoandy Dhillon MD 09/05/2024 Orders Only [facility] Cardiology [address] [place] [address] [place] [phone] Leodan Rojo MD 09/03/2024 Orders Only [facility] [address] [place] [address] [place] [phone] Taylor Geiger MD 09/02/2024 Telephone [facility] Cardiology at [address] [place] [address] Leodan Rojo MD 08/30/2024 Orders Only [facility] Cardiology [address] [facility] [address] [place] [address] Taylor Geiger MD 08/27/2024 Telephone [facility] [address] [place] [address] [address] [place] [address] Yoandy Dhillon MD 07/29/2024 11:00 AM CDT Ancillary Procedure [facility] Cardiology at [address] [place] [address] Paroxysmal atrial fibrillation (HCC) 07/29/2024 10:30 AM CDT Office Visit [facility] Cardiology at [address] [place] [address] Yonady Dhillon MD Bilateral lower extremity edema (Primary Dx); DANIEL (obstructive sleep apnea); Paroxysmal atrial fibrillation (HCC); Essential hypertension; Mixed hyperlipidemia; Morbid obesity with BMI of 40.0-44.9, adult (HCC); Alcohol abuse; Cardiomyopathy, unspecified type (HCC); Systolic congestive heart failure, unspecified HF chronicity (HCC) 07/26/2024 Telephone [facility] [address] [facility] [address] [place] [address] Yoandy Dhillon MD from Last 3 Months Surgical History [...] PCV20, or PCV21) 05/09/2017 03/14/2017 Covid-19 Vaccine ( - 2023-2 5 season) 2023 11/11/2021, 12/25/2020, 04/24/2020, Additional history exists Abdominal Aortic Aneurysm (A AA) Screen 09/19/2024 Well Visit 65+ 09/19/2024 DTaP/Tdap/Td Vaccine (2 - Td or Tdap) 10/13/2024 10/13/2014 Influenza Vaccine (#1) 2024 , 11/11/2021, 03/16/2020 Zoster Vaccine Completed 09/07/2023, 01/10/2023 Procedures Procedure Name Priority Date/Time Associated Diagnosis Comments CARDIOLOGY DOCUMENT SCAN Routine 10/02/2024 5:18 PM CDT CARDIOLOGY DOCUMENT SCAN 10/02/2024 SCAN - LABS 10/02/2024 SCAN - LABS 09/27/2024 9:28 PM CDT [...] 07/29/2024 10:2 5 AM CDT Mixed hyperlipidemia from Last 3 Months Results * Cardiology Document Scan (10/02/2024 5:18 PM CDT) Anatomical Region Laterality Modality Other us Yoandy Dhillon MD CV CARDIAC SERVICES PROCE DUR Final Result * SCAN - LABS (10/02/2024) us Provider Scanning Final Result * Cardiology Document Scan (10/02/2024) Anatomical Region Laterality Modality Other us Provider Scanning CV CARDIAC SERVICES PROCEDURES Final Result * SCAN - LABS (09/27/2024 9:28 PM CDT) us Provider Scanning Final Result * NM MPI SPECT (Rest and/or Stress) Multiple Studies (2024 9:49 AM CDT) Anatomical Region Laterality Modality Body N/A Electrocardiogra phy 2024 8:30 AM CDT Narrative 2024 12:51 PM CDT [facility] Cardiology [address], [place] [address] [address] [facility] [address], [place] [address] [address], [place] [address] P:[phone] P:[phone] MPI Imaging Report Patient Name: YAJAIRA MAGUIRE R : 1960 Study Date: 2024 8:30:00 AM Gender: M Tech: NIDA [facility] Location: [facility] Provider: TAYLOR GEIGER Height(Cm): 167.6 BSA: Weight(Kg): 118.4 Heart Rate: 132 BMI: 42.15 Order Provider: TAYLOR GEIGER PHYSICIAN: Primary Care Physician: Dr. Hope. [facility] Physician: Mynor Dhillon M.D. Stress Supervision: Isai Alexander M.D.,Rosalba.CEstefaníaCEstefanía Stress Interpreting Physician: Isai Alexander M.D.,WilderCEstefaníaCEstefanía Image Interpreting Physician: Isai Alexander M.D.,FEstefaníaA.CEstefaníaC. PROCEDURES: Pharmacologic SPECT Report: Myocardial perfusion imaging [...] attenuation. Electronically Signed By: Isai Alexander MD, [facility] 2024 12:47:29 PM CDT Electronically Signed By: Isai Alexander MD, [facility] 2024 12:47:29 PM CDT Procedure Note Isai Alexander MD - 2024 [facility] Cardiology [address] [facility] [address] [id number] [address] [facility] [address] [place] [address] [address] [place] [address] P:[phone] P:[phone] MPI Imaging Report Patient Name: YAJAIRA MAGUIRE R : 1960 Study Date: 2024 8:30:00 AM Gender: M Tech: SUNG ALVA Location: [facility] Provider: TAYLOR GEIGER Height(Cm): 167.6 BSA: Weight(Kg): 118.4 Heart Rate: 132 BMI: 42.15 Order Provider: VELAGAPUDI,TAYLOR PHYSICIAN: Primary Care Physician: Dr. Hope. [facility] Physician: Mynor Dhillon M.D. Stress Supervision: Isai [...] attenuation. Electronically Signed By: Isai Alexander MD, [facility] 2024 12:47:29 PM CDT Electronically Signed By: Isai Alexander MD, [facility] 2024 12:47:29 PM CDT Result Lesli Geiger MD IMG NM PROCEDURES Final Res [...] PM CDT) Anatomical Region Laterality Modality Other Taylor Geiger MD CV CARDIAC SERVICES PROCEDU RES Final Result * 48 HR Holter Monitor (07/29/2024 12:28 PM CDT) Anatomical Region Laterality Modality Electrocardiogra phy Narrative 08/02/2024 3:32 PM CDT AMBULATORY CVT RN REPORT Patient Name: Yajaira Tran Date of [...] was used to complete this document, therefore, cylinder devalver variances may occur. Yoandy Dhillon MD, [facility] 08/02/24 Yoandy Dhillon MD CV CARDIAC SERVICES [facility] DUR Final Result * POCT lipid panel (07/29/2024 [...] OF CARE TEST ORDERA BLES Final Result from Last 3 Months Insurance [employer] MEDICARE Care Teams Lead Cargoman Relationship Specialty Start Date End Date Kel Hope MD [address] [place] [address] PCP - General Internal Medicine 06/07/24
[2024-10-15 10:48] LABS: Hematocrit 38.0 % (37.0-46.0); Hemoglobin 11.9 g/dL (12.4-15.3); Mean Corpuscular HGB Conc 31.3 g/dL (32-36); Mean Corpuscular Hemoglobin 30.4 pg (27.0-31.0); Mean Corpuscular Volume 97.2 fL (78.0-102.0); Platelet Count Result 348 K/mm3 (150-420); Red Blood Count 3.91 M/mm3 (4.70-6.10); White Blood Count 8.1 K/mm3 (4.8-10.8)
[2024-10-15 11:18] LABS: Alanine Aminotransferase 23 U/L (6-50); Albumin Level 4.0 g/dL (3.5-5.1); Alkaline Phosphatase 122 U/L (38-126); Anion Gap 10 mmol/L (4-12); Aspartate Amino Transferase 45 U/L (17-59); Bilirubin,Total 0.8 mg/dL (0.2-1.3); Blood Urea Nitrogen 16 mg/dL (9-20); Calcium 9.9 mg/dL (8.4-10.2); Carbon Dioxide 25 mmol/L (22-30); Chloride 105 mmol/L (98-107); Estimated Glomerular Filt Rate 53; Glucose 113 mg/dL (65-110); Magnesium 1.6 mg/dL (1.6-2.3); Osmolality Calculated 292 mOsm/kg (285-295); Potassium 4.4 mmol/L (3.4-5.0); Sodium 140 mmol/L (137-145); Total Protein 7.2 g/dL (6.3-8.2)
== END 2024-10-15 10:12 | disposition home or self-care (01) ==
PROVIDERS: PCP Internal Medicine; Visit Provider Internal Medicine
DX: D64.9 Anemia, unspecified (principal); I95.9 Hypotension, unspecified
CPT/HCPCS: 36415; 80053; 83735; 85027

== ENCOUNTER 2024-10-16 10:45 | Outpatient (CLI) | payer MEDICARE, SELFPAY ==
--- NOTE | 2024-10-16 10:52 | ECG_ITS ---
Test Date: 2024-10-16 11:07:06 Measurements Intervals [place] Rate: 84 P: 80 KS: 178 QRS: 93 QRSD: 91 T: 50 QT: 384 QTc: 454 Interpretive Statements SINUS RHYTHM WITH OCCASIONAL VENTRICULAR PREMATURE COMPLEXES RIGHT AXIS DEVIATION BORDERLINE T WAVE ABNORMALITY- ANTEROLATERAL LEADS BASELINE ARTIFACT- II, III, AVR, AVL, AVF BORDERLINE ECG Compared to ECG 10/02/2024 07:20:26 ATRIAL FIBRILLATION NO LONGER PRESENT Electronically Signed On 10-16-2024 11:17:10 CDT by Ziggy Alegria D.O.
--- OUTSIDE RECORDS SUMMARY | 2024-10-16 11:15 | XMS_ITS | Encounter Summary ---
Author Organization [facility] Healthcare Address [address] [place] [address] Care Team Providers Care Mds Manager Name Role Phone Kel Hope MD Primary Care Provider Encounter Details Date Type Department Care Team (Late st Contact Info) Description 07/04/2024 Orders Only [facility] Health Information Management [address] [place] [address] Scanning, Provider Social History Tobacco Use [...] on filedocumented in this encounter Care Teams Mds Manager Relationship Specialty Start Date End Date Kel Hope MD [address] [place] [address] PCP - General Internal Medicine 06/07/24 documented as of this encounter
--- OUTSIDE RECORDS SUMMARY | 2024-10-16 11:15 | XMS_ITS | Clinical Summary ---
Author Organization [facility] Address [address] [place] [address] Care Team Providers Care Case Management Associate Name Role Phone Unavailable Primary Care Provider [...]
--- OUTSIDE RECORDS SUMMARY | 2024-10-16 11:15 | XMS_ITS | Clinical Summary ---
Author Organization [facility] [address] Address [address] [place] [address] Care Team Providers Care Animal Husbandman Name Role Phone Kel Hope MD Primary Care Provider [phone] Allergies Active Allergy Reactions Criticality Noted Date Comments Boswell-3 Fatty Acids Other (See comments) 2024 Indigestion [...] Department Care Team Description 10/08/2024 Orders Only [facility] [address] [place] [address] Leodan Rojo MD Atrial fibrillation, unspecified type (HCC) (Primary Dx) 10/07/2024 Orders Only [facility] [address] [place] [address] Yoandy Dhillon MD 10/07/2024 Telephone [facility] Cardiology at [address] [place] [address] Yoandy Dhillon MD 10/02/2024 Orders Only [facility] Health Information Management [address] [place] [address] Scanning, Provider 10/01/2024 8:15 AM CDT Office Visit [facility] Cardiology at [address] [place] [address] Yoandy Dhillon MD Chronic systolic congestive heart failure (HCC) (Primary Dx); Mixed hyperlipidemia; Essential hypertension; Cardiomyopathy, unspecified type (HCC); Persistent atrial fibrillation (HCC); DANIEL (obstructive sleep apnea) 2024 8:30 AM CDT Ancillary Procedure [facility] at [address] [place] [address] Atrial fibrillation, unspecified type (HCC); Cardiomyopathy, unspecified type (HCC); Systolic congestive heart failure, unspecified HF chronicity (HCC) 09/19/2024 1:30 PM CDT Office Visit [facility] Cardiology [address] [place] [address] [place] [phone] Leodan Rojo MD Paroxysmal atrial fibrillation (HCC) (Primary Dx) 09/19/2024 Telephone [facility] [address] [place] [address] [place] [phone] Yoandy Dhillon MD 09/05/2024 Orders Only [facility] [address] [place] [address] [place] [phone] Leodan Rojo MD 09/03/2024 Orders Only [facility] Cardiology [address] [place] [address] [place] [phone] Taylor Geiger MD 09/02/2024 Telephone [facility] at [address] [place] [address] Leodan Rojo MD 08/30/2024 Orders Only [facility] [address] [facility] [address] [place] [address] Taylor Geiger MD 08/27/2024 Telephone [facility]iology [address] [place] [address] [address] [place] [address] Yoandy Dhillon MD 07/29/2024 11:00 AM CDT Ancillary Procedure [facility] at [address] [place] [address] Paroxysmal atrial fibrillation (HCC) 07/29/2024 10:30 AM CDT Office Visit [facility] at [address] [place] [address] Yoandy Dhillon MD Bilateral lower extremity edema (Primary Dx); DANIEL (obstructive sleep apnea); Paroxysmal atrial fibrillation (HCC); Essential hypertension; Mixed hyperlipidemia; Morbid obesity with BMI of 40.0-44.9, adult (HCC); Alcohol abuse; Cardiomyopathy, unspecified type (HCC); Systolic congestive heart failure, unspecified HF chronicity (HCC) 07/26/2024 Telephone [facility] Cardiology [address] [facility] [address] [place] [address] Yoandy Dhillon MD from Last 3 Months [...] AM CDT Narrative 2024 12:51 PM CDT [facility] [address], [place] [address] [address] [facility] [address], [place] [address] [address], [place] [address] P:[phone] P:[phone] MPI Imaging Report Patient Name: YAJAIRA MAGUIRE R : 1960 Study Date: 2024 8:30:00 AM Gender: M Tech: NIDA [facility] Location: [facility] Provider: TAYLOR GEIGER Height(Cm): 167.6 BSA: Weight(Kg): 118.4 Heart Rate: 132 BMI: 42.15 Order Provider: TAYLOR GEIGER PHYSICIAN: Primary Care Physician: Dr. Hope. [facility] Physician: Mynor Dhillon M.D. Stress Supervision: Isai [...] attenuation. Electronically Signed By: Isai Alexander MD, [facility] 2024 12:47:29 PM CDT Electronically Signed By: Isai Alexander MD, [facility] 2024 12:47:29 PM CDT Procedure Note Isai Alexander MD - 2024 [facility] [address] [facility] [id number] [facility] [address] [place] [address] [address] [place] [address] P:[phone] P:[phone] MPI Imaging Report Patient Name: YAJAIRA MAGUIRE R : 1960 Study Date: 2024 8:30:00 AM Gender: M Tech: SUNG ALVA Location: [facility] Provider: TAYLOR GEIGER Height(Cm): 167.6 BSA: Weight(Kg): 118.4 Heart Rate: 132 BMI: 42.15 Order Provider: VELAGAPUDI,TAYLOR PHYSICIAN: Primary Care Physician: Dr. Hope. [facility] Physician: Mynor Dhillon M.D. Stress Supervision: Isai [...] attenuation. Electronically Signed By: Isai Alexander MD, [facility] 2024 12:47:29 PM CDT Electronically Signed By: Isai Alexander MD, [facility] 2024 12:47:29 PM CDT Result Lesli Geiger [...] phy Narrative 08/02/2024 3:32 PM CDT AMBULATORY SAUSAGE MACHINE OPERATOR REPORT Patient Name: Yajaira Tran Date of [...] was used to complete this document, therefore, senior product analyst variances may occur. Yoandy Dhillon MD, [facility] 08/02/24 Yoandy Dhillon MD CV [facility]IAC [facility] DUR Final Result * POCT lipid panel [...] 3 Months Insurance [employer] MED[employer]ARE Care Teams Animal Husbandman Relationship Specialty Start Date End Date Kel Hope MD [address] [place] [address] PCP - General Internal Medicine 06/07/24
--- OUTSIDE RECORDS SUMMARY | 2024-10-16 11:15 | XMS_ITS | Encounter Summary ---
Author Organization [facility] Address [address] [place] [address] Care Team Providers Care Harness Inspector Name Role Phone Raysa Miguel MD Primary Care Provider [phone] Jonna Moss [facility]- Unavailable Regan Lam MD Unavailable [phone] Shahid Mansfield MD Unavailable [phone] Encounter Details Date Type Department Care Team (Late st Contact Info) Description 05/06/2017 Abstract [facility] CONVERSION [address] [place], [place] [id number] , Generic Conversion, Social History Tobacco Use [...] Rule Out 01/31/2021 01/31/2021 01/31/2021 6:37 PM SAP PORTAL ARCHITECT COVID-19 Rule Out 05/16/2021 05/16/2021 05/16/2021 6:33 PM CDT documented as of this encounter Care Teams Harness Inspector Relationship Specialty Start Date End Date Raysa Miguel MD [address] [place] [address] PCP - General FAMILY PRACTICE 04/22/16 Jonna Moss, [facility] [place] [address] NURSE PRACTITIONER 04/22/16 Regan Lam MD [facility] [place] [address] CARDIOVASCULAR DISEASE 04/22/16 Shahid Mansfield MD [address] [place] [address] ORTHOPAEDIC SURGERY 04/22/16 documented as of this encounter
--- OUTSIDE RECORDS SUMMARY | 2024-10-16 11:15 | XMS_ITS | Clinical Summary ---
Author Organization [facility] Address [address] [place] [address] Care Team Providers Care Hook And Eye Sewing Machine Operator Name Role Phone Raysa Miguel MD Primary Care Provider [phone] Jonna Moss FLOOR TILING PROFESSIONAL- Unavailable Regan Lam MD Unavailable [phone] Shahid Mansfield MD Unavailable [phone] Allergies Active Allergy Reactions Criticality Noted Date [...] Status Comments Brother Alive Father (Age 54) [place] Maternal Grandfather Maternal Grandmother Mother (Age 67) [...] patient's age to complete this topic Insurance [facility] Care Teams Hook And Eye Sewing Machine Operator Relationship Specialty [place] [address] [place] [address] [place] [phone] PCP - General FAMILY PRACTICE 04/22/16 Jonna Moss, FLOOR TILING PROFESSIONAL- [address] [place] [address] NURSE PRACTITIONER 04/22/16 Regan Lam MD [address] [place] [address] CARDIOVASCULAR DISEASE 04/22/16 Shahid Mansfield MD [address] [place] [id number] ORTHOPAEDIC SURGERY 04/22/16
--- OUTSIDE RECORDS SUMMARY | 2024-10-16 11:15 | XMS_ITS | Encounter Summary ---
Author Organization [facility] Address [facility] [place] [address] Care Team Providers Care Strategic Alliances Manager Name Role Phone Raysa Miguel MD Primary Care Provider [phone] Jonna Msos [facility]- Unavailable Regan Lam MD Unavailable [phone] Shahid Mansfield MD Unavailable [phone] Encounter Details Date Type Department Care Team (Late st Contact Info) Description 05/31/2021 Abstract [facility]-[address] [place] [address] [place] [address] Abstract, Doc Prevea Social History Tobacco Use [...] AST/SGOT (05/26/2021) AST 77 05/26/2021 us Gwendolyn Hlae MD LABORATORY Final Result * LIPID PANEL (05/26/2021) CHOLESTEROL 200 HDL 90 TRIGLYCERIDES 184 CHOL/HDL RATIO 2.2 LDL (CALCULATED) 80 VLDL CALCULATION 30 05/26/2021 us Gwendolyn Hale MD LABORATORY Final Result documented in this encounter Visit Diagnoses Diagnosis Mixed hyperlipidemia Encounter for long-term current use of medication documented in this encounter Care Teams Strategic Alliances Manager Relationship Specialty Start Date End [place] [address] PCP - General FAMILY PRACTICE 04/22/16 Jonna Moss, MAIL MESSENGER[place] [address] NURSE PRACTITIONER 04/22/16 [place] [address] CARDIOVASCULAR DISEASE 04/22/16 Shahid Mansfield MD [address] [place] [address] ORTHOPAEDIC SURGERY 04/22/16 documented as of this encounter
== END 2024-10-16 10:46 | disposition home or self-care (01) ==
LOC: CHSCARD 10:48
PROVIDERS: PCP Internal Medicine; Visit Provider Internal Medicine
DX: I48.92 Unspecified atrial flutter (principal)
CPT/HCPCS: 93005

== ENCOUNTER 2025-01-23 02:16 | Day surgery (SDC) | payer MEDICARE, SELFPAY ==
[2025-01-22 10:16] VITALS: BMI 22.3
--- OUTSIDE RECORDS SUMMARY | 2025-01-23 02:19 | XMS_ITS | Clinical Summary ---
Author Organization [facility] Address [address] [place] [address] Care Team Providers Care Smoking Pipe Coater Name Role Phone Raysa Miguel MD Primary Care Provider Unavailab Jonna Pace MANAGER MEDICARE-BC Unavailable Regan Lam MD Unavailable [phone] Shahid Mansfield MD Unavailable [phone] Allergies Active Allergy Reactions Criticality Noted Date [...] Essential hypertension Mixed hyperlipidemia Paroxysmal atrial fibrillation Resolved Problems Problem Noted Date Diagnosed Date Resolved Date Aftercare following surgery 06/08/2021 10/04/2021 Preoperative cardiovascular examination 04/25/2016 04/25/2016 Dyslipidemia 04/25/2016 10/04/2021 Family History Relation Status Comments Brother Alive Father (Age 54) [place] Maternal Grandfather Maternal Grandmother Mother (Age 67) stroke Paternal Grandfather Paternal Grandmother Social History Tobacco Use Types Packs/Day Years Used Date Smoking Tobacco: Former Cigarettes 2 25 1 98 - 2006 Smokeless Tobacco: Never Alcohol Use [...] 09/19/2009 Zoster Vaccines (1 of 2) 09/19/2009 COVID-19 Vaccine (4 - 2024-2 6 season) 2024 12/25/2020, 04/24/2020, 03/27/2020 Influenza Adult (#1) 2024 RSV Immunization or 60+ Years (1 - 1-dose 75+ series) 09/19/2034 Hepatitis A Vaccines Aged Out No long er eligible based on patient's age to complete this topic Meningococcal B Vaccine Aged Out No l onger eligible based on patient's age to complete this topic Meningococcal Vaccine Aged Out No rea juan eligible based on patient's age to complete this topic RSV Immunizations Under 20 Months Aged Out No longer eligible b ased on patient's age to complete this topic Insurance [facility] Care Teams Smoking Pipe Coater Relationship Specialty Start Date End Date Raysa Miguel MD PCP - General FAMILY PRACTICE 04/22/16 Jonna Moss [facility]- NURSE PRACTITIONER 04/22/16 Regan Lam MD CARDIOVASCULAR DISEASE 04/22/16 Shahid Mansfield MD [address] [place] [address] ORTHOPAEDIC SURGERY 04/22/16
--- OUTSIDE RECORDS SUMMARY | 2025-01-23 02:19 | XMS_ITS | Clinical Summary ---
Author Organization [facility] [address] Address [address] [place] [address] Care Team Providers Care Pattern Ruler Name Role Phone Kel Hope MD Primary Care Provider [phone] Allergies Active Allergy Reactions Criticality Noted Date Comments Azithromycin Unknown 08/26/2024 Ezetimibe Unknown 08/26/2024 Lisinopril Muscle pain Medium 06/19/2024 Niacin Itching Low 06/19/2024 Simvastatin Unknown 08/26/2024 Medications doxycycline monohydrate 50 mg tablet Take 1 tablet (50 mg total) by mouth every other day Active multivitamin with minerals tablet Take 1 tablet by mouth every morning Active lovastatin (MEVACOR) 40 mg tablet Take 1 tablet (40 mg total) by mouth nightly Active apixaban (ELIQUIS) 5 mg tabletIndication s:atrial fibrillation Take 1 tablet (5 mg total) by mouth 2 (two) times a day 180 tablet 3 5 06/20/19 26 Active furosemide (LASIX) 20 mg tabletIndication s:Bilateral lower extremity edema Take 1 tablet (20 mg total) by mouth daily 90 tablet 3 5 06/20/19 26 Active Additional Information Patient taking differently:20 mg oralEvery morning, Reported on 01/21/[address] (PROTONIX) 40 mg EC tablet Take 1 tablet (40 mg total) by mouth 2 (two) times a day Active dilTIAZem XR 240 mg 24 hr capsule Take 1 capsule (240 mg total) by mouth every morning 90 capsule 3 5 09/20/19 26 Active magnesium oxide 400 mg magnesium capsule Take 400 mg by mouth nightly Active ferrous sulfate ER (SLOW IRON) 142 mg (45 mg of elemental iron) tablet Take 1 tablet (142 mg total) by mouth daily with breakfast Active Active Problems Problem Noted Date Diagnosed Date Septal defect, atrial 12/09/2024 Anemia 11/04/2024 Contraindication to anticoagulation therapy 10/21 Cardiomyopathy 07/29/2024 Systolic congestive heart failure 07/29/2024 DANIEL (obstructive sleep apnea) 06/19/2024 Bilateral lower extremity edema 06/19/2024 Morbid obesity 06/19/2024 Morbid obesity with BMI of 40.0-44.9, adult 05/23 Mixed hyperlipidemia 06/19/2024 Atrial fibrillation 06/19/2024 Essential hypertension 06/19/2024 Alcohol abuse 06/19/2024 Encounters Date Type Department Care Team Description 01/21/2025 9:00 AM QUALITY DIRECTOR Office Visit [facility] Medical [facility] Cardiology [address] [place] [phone] Leodan Rojo MD Paroxysmal atrial fibrillation (HCC) (Primary Dx); Systolic congestive heart failure, unspecified HF chronicity (HCC) 12/16/2024 Telephone [facility] Cardiology [address] [place] [phone] Leodan Rojo MD 12/09/2024 8:00 AM CDT - 12/09/2024 10:30 AM CDT Surgery [facility] Cardiac Catheterization Lab [address] [place] [id number] Zach Matos MD PERC FERNANDA CLOSE W/IMPLANT [id number] 12/09/2024 8:00 AM CDT Anesthesia Event [facility] Cardiac Catheterization Lab [address] [place] [address] Pan Gray MD Barnhart, Lynlee Jo, NP 12/09/2024 5:54 AM CDT - 12/10/2024 12:49 PM CDT Hospital Encounter [address] [address] Zach Matos MD Paroxysmal atrial fibrillation (HCC); Anemia; Contraindication to anticoagulation therapy Discharge Disposition: Discharge to home or self care 11/28/2024 9:45 AM CDT Pre-Admission Testing [facility] Pre Anesthesia Testing [address] [place] [id number] 11/28/2024 7:46 AM CDT - 11/28/2024 11:59 PM CDT Hospital Encounter [facility] Imaging and Radiology [address] [place] [address] Contraindication to anticoagulation therapy; Atrial fibrillation (HCC); Anemia Discharge Disposition: Discharge to home or self care 11/07/2024 10:30 AM CDT Office Visit [facility] Medical [facility] Cardiology [address] [place] [address] Meka Kaur NP Paroxysmal atrial fibrillation (HCC) (Primary Dx); Contraindication to anticoagulation therapy; Essential hypertension; Right foot pain 11/04/2024 Orders Only [facility] Cardiac Catheterization Lab [address] [place] [id number] Leodan Rojo MD Paroxysmal atrial fibrillation (HCC) (Primary Dx); Anemia; Contraindication to anticoagulation therapy 11/04/2024 Orders Only [facility] Cardiac Catheterization Lab [address] [place] [phone] Leodan Rojo MD Contraindication to anticoagulation therapy (Primary Dx); Atrial fibrillation (HCC); Anemia from Last 3 Months Immunizations Immunization Administration Dates Next Due Influenza, Trivalent, High D ose, Split, Preservative Free, Intramuscular 12/10/2024 Surgical History Surgery Date Site/Laterality Comments CARPAL TUNNEL RELEASE Bilateral ABLATION 02/20/2014 - 02/19/2015 CERVICAL FUSION 02/21/2016 - 02/19/2017 posterior plates and rods anterior COLONOSCOPY 07/21/2024 - 08/19/2024 + EGD IMPLANTABLE CARDIAC DEVICE 12/09/2024 N/A Procedure: PERC FERNANDA CLOSE W/IMPLANT [id number]; Surgeon: Zach Matos MD; Location: CARDIAC INSTRUMENT MAKER AND REPAIRER; Service: Cardiovascular; Laterality: N/A; Medical devices from this surgery are in the Medical Devices section. CARDIAC ELECTROPHYSIOLOGY PROCEDURE 12/09/2024 N/A Procedure: PERCUTANEOUS LEFT ATRIAL APPENDAGE CLOSURE W IMPLANT [id number]; Surgeon: Zach Matos MD; Location: CARDIAC INSTRUMENT MAKER AND REPAIRER; Service: Cardiovascular; Laterality: N/A; Medical devices from this surgery are in the Medical Devices section. CARDIAC ELECTROPHYSIOLOGY PROCEDURE 12/09/2024 N/A Procedure: INTRACARDIAC ECHOCARDIOGRAM (+) [id number]; Surgeon: Zach Matos MD; Location: CARDIAC INSTRUMENT MAKER AND REPAIRER; Service: Cardiovascular; Laterality: N/A; Medical devices from this surgery are in the Medical Devices section. Medical History Medical History Date Comments Anemia Acute kidney failure Hypertension Atrial fibrillation (HCC) Hyperlipidemia Sleep apnea Peptic ulceration Family History Medical History Relation Name Comments Arrhythmia Brother Coronary artery disease Brother Sleep apnea Brother Heart disease Father Hypertension Father Coronary artery disease Mother Hyperlipidemia Mother Hypertension Mother cva Mother Relation Name Status Comments Brother Alive Father Mother Social History Tobacco Use Types Packs/Day Years Used Date Smoking Tobacco: Former Cigarettes Q uit: 1996 Smokeless Tobacco: Never Alcohol Use Standard Drinks/Week Comments Never 0 (1 standard drink = 0.6 oz pur e alcohol) AUDIT-C Answer Date Recorded Frequency of Alcohol Consumption Not on file 12/09/2024 Q2: How many drinks containi ng alcohol do you have on a typical day when you are drinking? Patient does not drink Frequency of Binge Drinking Not on file 11/21 Personal Safety Answer Date Recorded Have you ever been in or are you currently in a harmful physical or emotional relationship or is someone making you feel afraid or unsafe? Denies 12/09/2024 Sex and Gender Information Value Date Recorded Sex Assigned at Not on file Legal Sex Male 2:17 PM CDT Gender Identity Not on file Sexual Orientation Not on file Last Filed Vital Signs Vital Sign Reading Time Taken Comments Blood Pressure 100/64 01/21/2025 8:54 AM QUALITY DIRECTOR Pulse 85 01/21/2025 8:54 AM QUALITY DIRECTOR Temperature 36.6 C (97.9 F) 12/10/2024 8:07 AM CDT Respiratory Rate 18 12/10/2024 8:07 AM CDT Oxygen Saturation 97% 01/21/2025 8:54 AM QUALITY DIRECTOR Inhaled Oxygen Concentration - - Weight 108 kg (238 lb) 01/21/2025 8:54 AM QUALITY DIRECTOR Height 167.6 cm (5' 6) 01/21/2025 8:54 AM QUALITY DIRECTOR Body Mass Index 38.41 01/21/2025 8:54 AM QUALITY DIRECTOR Plan of Treatment Health Maintenance Due Date Last Done Comments Colon Cancer Screening-Colonoscopy 1960 Depression Screening 1960 Hepatitis C Screening 1960 Prostate Cancer Screening-PSA 1960 Hepatitis B Screening 09/19/1977 Pneumococcal vaccine 65+ (2 of 2 - PPSV23, PCV20, or PCV21) 05/09/2017 03/14/2017 Abdominal Aortic Aneurysm (A AA) Screen 09/19/2024 Well Visit 65+ 09/19/2024 DTaP/Tdap/Td Vaccine (2 - Td or Tdap) 10/13/2024 10/13/2014 Covid-19 Vaccine (5 - 2024-2 6 season) 2024 11/11/2021, 12/25/2020, 04/24/2020, Additional history exists Fall Risk Assessment 12/10/2025 12/10/2024 Zoster Vaccine Completed 09/07/2023, 01/10/2023 Influenza Vaccine Completed 12/10/2024, , 11/11/2021, Additional history exists Medical Devices Implanted Type Area Field Operations Coordinator Device Identifier Shelf Expiration Date Model / Serial / Lot Turner Vascular System Closure Repair Femoral Artery Suture Mediated Perclose Prostyle 73565-28 - [id number] Implanted:Qty: 1 on 12/09/2024 by Zach Matos MD at [facility] 09/19/2026 [id number] / / [id number] Turner Vascular System Closure Repair Femoral Artery Suture Mediated Perclose Prostyle 67160-82 - [id number] Implanted:Qty: 1 on 12/09/2024 by Zach Matos MD at [facility] 09/19/2026 [id number] / / [id number] Turner Vascular System Closure Repair Femoral Artery Suture Mediated Perclose Prostyle 09015-43 - [id number] Implanted:Qty: 1 on 12/09/2024 by Zach Matos MD at [facility] 09/19/2026 [id number] / / [id number] Turner Vascular Occluder Cvasc Fernanda Flexible Braided Amplatzer Amulet 20mm Nitinol [id number] - [id number] Implanted:Qty: 1 on 12/09/2024 by Zach Matos MD at [facility] 06/19/2029 [id number] Procedures Procedure Name Priority Date/Time Associated Diagnosis Comments ECG 12-LEAD Routine 12/10/2024 7:28 AM CDT TRANSTHORACIC ECHO (TTE) LIMITED/FOLLOW UP W LTD DOPPLER/CF WO CONTRAST Routine 12/10/2024 7:16 AM CDT EGFR Routine 12/10/2024 6:04 AM CDT DIFFERENTIAL AUTO Routine 12/10/2024 6:0 4 AM CDT CBC WITH AUTO DIFFERENTIAL Routine 12/10/2024 6:04 AM CDT MAGNESIUM Routine 12/10/2024 6:04 AM CDT BASIC METABOLIC PANEL Routine 12/10/2024 6:04 AM CDT APTT Routine 12/09/2024 2:32 PM CDT PROTIME-INR Routine 12/09/2024 2:32 PM CDT INTRACARDIAC ECHOCARDIOGRAM Routine 12/09/2024 10:25 AM CDT Paroxysmal atrial fibrillation (HCC) Anemia Contraindication to anticoagulation therapy PERCUTANEOUS LEFT ATRIAL APPENDAGE LIGATION Routine 12/09/2024 10:25 AM CDT Paroxysmal atrial fibrillation (HCC) Anemia Contraindication to anticoagulation therapy PERC FERNANDA CLOSURE W/IMPLANT (WATCHMAN) [id number] Routine 12/09/2024 10:25 AM CDT Paroxysmal atrial fibrillation (HCC) Anemia Contraindication to anticoagulation therapy POCT ACTIVATED CLOTTING TIME, HIGH RANGE Routine 12/09/2024 9:58 AM CDT POCT ACTIVATED CLOTTING TIME, HIGH RANGE Routine 12/09/2024 9:16 AM CDT POCT ACTIVATED CLOTTING TIME, HIGH RANGE Routine 12/09/2024 9:10 AM CDT B CHECK SAMPLE STAT 12/09/2024 8:58 AM CDT POTASSIUM, WHOLE BLOOD STAT 12/09/2024 8:50 AM CDT PREPARE RBC STAT 12/09/2024 6:57 AM CDT EGFR Routine 11/28/2024 10:44 AM CDT DIFFERENTIAL AUTO Routine 11/28/2024 10:44 AM CDT APTT Routine 11/28/2024 10:44 AM CDT PROTIME-INR Routine 11/28/2024 10:44 AM CDT COMPREHENSIVE METABOLIC PANEL Routine 11/28/2024 10:44 AM CDT CBC WITH AUTO DIFFERENTIAL Routine 11/28/2024 10:44 AM CDT TYPE AND SCREEN Timed 11/28/2024 10:38 AM CDT ECG 12-LEAD Routine 11/28/2024 10:[address] HEART MORPHOLOGY W CONTRAST Schedule Routine, Read Routine (OP Routine) 11/28/2024 8:21 AM CDT Contraindication to anticoagulation therapy Atrial fibrillation (HCC) Anemia POCT CREATININE FOR CONTRAST EVALUATION Routine 11/28/2024 8:00 AM CDT from Last 3 Months Results * ECG 12 lead (12/10/2024 7:28 AM CDT) 12/10/2024 7:28 AM CDT Narrative [facility] - 12/12/2024 10:14 AM CDT Vent Rate: 81 bpm RR Interval: 735 msec PA Interval: 171 msec QRS Duration: 94 msec QT Interval: 386 msec QTC Interval: 423 msec P-R-T [place]: 90 - 49 - 114 degrees IMPRESSION: SINUS RHYTHM LOW QRS VOLTAGE IN EXTREMITY LEADS [QRS DEFLECTION < 0.5 mV IN LIMB LEADS] ABNORMAL QRS-T ANGLE [QRS-T AXIS DIFFERENCE > 60] ABNORMAL ECG Compared to prior EKG, PVCs are no longer present Electronically Signed By: Howie Goodman MD us Zach Matos MD ECG ORDERABLES Final Result [facility] * TRANSTHORACIC ECHO (TTE) LIMITED/FOLLOW UP W LTD DOPPLER/CF WO CONTRAST (12/10/2024 7:16 AM CDT) Anatomical Region Laterality Modality Ultrasound 12/10/2024 6:52 AM CDT Narrative 12/10/2024 8:[place] [address] Limited Echocardiogram Report Patient Name: YAJAIRA MAGUIRE R : 1960 Study Date: 12/10/2024 6:52:05 AM Sex: M Tech: Location: [id number] Ref Provider: ZACH MATOS Height(Cm): 167 BSA: 2.19 Weight(Kg): 103 Heart Rate: 80 BP: 125 / 74 Quality: Good Order Provider: ZACH MATOS PROCEDURES: Echocardiographic Report: Limited transthoracic echocardiogram with 2D and M-Mode. INDICATIONS: S/P LAAO. FINDINGS: Left Ventricle: Normal left ventricular systolic function with no focal wall motion abnormalities. Normal left ventricular size. Left Atrium: The left atrium is normal in size. Right Ventricle: Normal right ventricular size. Pericardium: Normal pericardium with no significant pericardial effusion. CONCLUSIONS: Normal left ventricular systolic function with no focal wall motion abnormalities. Normal left ventricular size. EF 55%. The left atrium is normal in size. Normal pericardium with no significant pericardial effusion. Electronically Signed By: Kashmir Toth MD 12/10/2024 8:15:24 AM CDT Procedure Note Kashmir Toth MD - 12/10/2024 [place] [address] Limited Echocardiogram Report Patient Name: YAJAIRA MAGUIRE R : 1960 Study Date: 12/10/2024 6:52:05 AM Sex: M Tech: Location: [address] Provider: ZACH MATOS Height(Cm): 167 BSA: 2.19 Weight(Kg): 103 Heart Rate: 80 BP: 125 / 74 Quality: Good Order Provider: ZACH MATOS PROCEDURES: Echocardiographic Report: Limited transthoracic echocardiogram with 2D and M-Mode. INDICATIONS: S/P LAAO. FINDINGS: Left Ventricle: Normal left ventricular systolic function with no focal wall motionabnormalities. Normal left ventricular size. Left Atrium: The left atrium is normal in size. Right Ventricle: Normal right ventricular size. Pericardium: Normal pericardium with no significant pericardial effusion. CONCLUSIONS: Normal left ventricular systolic function with no focal wall motionabnormalities. Normal left ventricular size. EF 55%. The left atrium is normal in size. Normal pericardium with no significant pericardial effusion. Electronically Signed By: Kashmir Toth MD 12/10/2024 8:15:24 AM CDT Zach Matos MD CV ECHO PROCEDURES Final Result * eGFR (12/10/2024 6:04 AM CDT) eGFR 88 >=60 mL/min/1. 73 m2 Comment: Interpretive Data Reference Interval Normal >/= 90 mL/min/1.73m2 Mildly decreased* 60 - 89 mL/min/1.73m2 Mildly to moderately decreased 45 - 59 mL/min/1.73m2 Moderately to severely decreased 30 - 44 mL/min/1.73m2 Severely decreased 15 - 29 mL/min/1.73m2 Kidney Failure < 15 mL/min/1.73m2 *Relative to young adult level Estimated glomerular filtration rate is determined by the 2020 CKD-EPI equation recommended by the National Kidney Foundation (A Unifying Approach to GFR Estimation: Recommendations of the NKF-ASK Task Force on Reassessing the Inclusion of Race in Diagnosing Kidney Disease, JASN 2020). The CKD-EPI equation should not be used for patients with unstable renal function and has not been validated in children and those over 70. Current interpretive data was last reviewed 2020. Blood 12/10/2024 6:04 AM CDT 12/10/2024 6:51 AM CDT Zach Matos MD LAB BLOOD ORDERABLES Final Resul t HAL [id number] [place] [address] * (ABNORMAL) Differential, auto (12/10/2024 6:04 AM CDT) Neutrophil abs 7.52(H) 1.50 - 6.50 K/cumm Imm gran abs 0.06 0.00 - 0.10 K/cumm [facility] Lymphocyte abs 2.77 0.80 - 3.30 K/cumm [facility] Monocyte abs 1.49(H) 0.20 - 0.80 K/cumm [facility] Eosinophil abs 0.16 0.00 - 0.50 K/cumm [facility] Basophil abs 0.06 0.00 - 0.10 K[facility]umm [facility] 62.3 % [facility] Comment: Interpretive Data Percent cell count reference ranges are not reported, since discordance with absolute values may lead to misinterpretation of CBC data. Current Interpretive Data was last revised on 2017. Imm gran pct 0.5 % HAL Comment: Interpretive Data Percent cell count reference ranges are not reported, since discordance with absolute values may lead to misinterpretation of CBC data. Current Interpretive Data was last revised on 2017. Lymphocyte pct 23.0 % HAL Comment: Interpretive Data Percent cell count reference ranges are not reported, since discordance with absolute values may lead to misinterpretation of CBC data. Current Interpretive Data was last revised on 2017. Monocyte pct 12.4 % HAL Comment: Interpretive Data Percent cell count reference ranges are not reported, since discordance with absolute values may lead to misinterpretation of CBC data. Current Interpretive Data was last revised on 2017. Eosinophil pct 1.3 % HAL Comment: Interpretive Data Percent cell count reference ranges are not reported, since discordance with absolute values may lead to misinterpretation of CBC data. Current Interpretive Data was last revised on 2017. Basophil pct 0.5 % HAL Comment: Interpretive Data Percent cell count reference ranges are not reported, since discordance with absolute values may lead to misinterpretation of CBC data. Current Interpretive Data was last revised on 2017. Blood 12/10/2024 6:04 AM CDT 12/10/2024 6:52 AM CDT us Zach Matos MD LAB BLOOD ORDERABLES Final Resul t HAL BUI [id number] Department [place] [address] * (ABNORMAL) CBC with auto differential (12/10/2024 6:04 AM CDT) WBC 12.06(H) 3.80 - 9.90 K/cumm Hgb 11.1(L) 13.0 - 17.5 g/dL HAL BUI Hct 36.0(L) 38.9 - 50.3 % C[facility]ER CH Plt 259 150 - 400 K/cumm [facility] CH MPV 11.3 9.1 - 12.3 fL [facility] CH RBC 3.89(L) 4.30 - 5.80 M/cumm [facility] CH MCV 92.5 81.3 - 96.4 fL [facility] CH MCH 28.5 27.1 - 33.3 pg [facility] CH MCHC 30.8(L) 32.3 - 35.7 g/dL [facility] CH RDW CV 15.7(H) 11.1 - 14.9 % [facility] CH RDW SD 52.6(H) 35.7 - 48.1 fL [facility] CH NRBC abs 0.00 0.00 - 0.01 K/cumm [facility] CH Blood 12/10/2024 6:04 AM CDT 12/10/2024 6:52 AM CDT Zach Matos MD LAB BLOOD ORDERABLES Final Resul t Performing Organization Address [facility] de Phone Number [facility] [phone] [address] [place] [address] * Magnesium (12/10/2024 6:04 AM CDT) Pathologist [facility] Magnesium 1.6 1.4 - 2.5 mg/dL Blood 12/10/2024 6:04 AM CDT 12/10/2024 6:51 AM CDT Zach Matos MD LAB BLOOD ORDERABLES Final Resul t Performing Organization Address [facility] de Phone Number [facility] [phone] [address] [place] [address] * (ABNORMAL) Basic metabolic panel (12/10/2024 6:04 AM CDT) Pathologist [facility] Sodium 140 135 - 145 mmol/L Potassium, pl 3.7 3.3 - 4.9 mmol/L [facility] Chloride 102 97 - 110 mmol/L [facility] CO2 22 22 - 32 mmol/L [facility] Anion gap 16(H) 2 - 15 mmol/L [facility] BUN 14 6 - 25 mg/dL [facility] Creatinine 0.96 0.80 - 1.30 mg/dL [facility] Glucose 96 70 - 199 mg/dL [facility] Comment: Interpretive Data Fasting glucose >/= 126 mg/dl is diagnostic for diabetes. Fasting is defined as no caloric intake for at least 8 hours. Fasting glucose between 100 mg/dl to 125 mg/dl is diagnostic of prediabetes. In a patient with classic symptoms of hyperglycemia or hyperglycemic crisis, a random glucose >/= 200 mg/dl is diagnostic for diabetes. In the absence of unequivocal hyperglycemia, results should be confirmed by repeat testing. The classification and Diagnosis of Diabetes Diabetes Care 202; 46: S19-S40. Current interpretive data was last revised 2022. Calcium 9.4 8.5 - 10.3 mg/dL [facility] Blood 12/10/2024 6:04 AM CDT 12/10/2024 6:51 AM CDT Zach Matos MD LAB BLOOD ORDERABLES Final Resul t Performing Organization Address [facility] Co de Phone Number [facility] [phone] [place] [address] * aPTT (12/09/2024 2:32 PM CDT) Pathologist [facility] aPTT 36 26 - 38 sec Comment: Interpretive Data Heparin therapeutic range: 66.0 - 100.0 seconds. Range based on correlation with therapeutic heparin activity range of 0.3 - 0.7 Units/mL. Current interpretive data was last revised on 2022. Blood 12/09/2024 2:32 PM CDT 12/09/2024 2:51 PM CDT Zach Matos MD LAB BLOOD ORDERABLES Final Resul t Performing Organization Address [facility] Co de Phone Number [facility] [phone] [address] [employer] [place], [place] [id number] * (ABNORMAL) Protime-INR (12/09/2024 2:32 PM CDT) PT 15.2(H) 10.2 - 13.5 sec INR 1.35(H) 0.90 - 1.20 HAL BUI Comment: Interpretive data Oral anticoagulant therapeutic ranges: Venous thromboembolism prophylaxis or treatment: 2.0-3.0 CARDIOLOGY Standard range: 2.0-3.0 High-intensity range: 2.5-3.5 Refer to indication-specific guidelines for appropriate target ranges for prosthetic heart valve replacement. Current interpretive data was last revised on 2019. Blood 12/09/2024 2:32 PM CDT 12/09/2024 2:51 PM CDT us Zach Matos MD LAB BLOOD ORDERABLES Final Resul t HAL BUI [id number] [address] Department [place] [address] * PERC FERNANDA CLOSURE W/IMPLANT (WATCHMAN) [id number], PERCUTANEOUS LEFT ATRIAL APPENDAGE LIGATION, INTRACARDIAC ECHOCARDIOGRAM (12/09/2024 10:25 AM CDT) Anatomical Region Laterality Modality X-Ray Angiograph y Addenda Addendum by Zach Matos MD on 12/09/2024 10:55 AM CDT LEFT ATRIAL APPENDAGE OCCLUSION (LAAO) PROCEDURE REPORT DATE OF PROCEDURE: 12/09/24 INDICATION FOR PROCEDURE: Atrial fibrillation with contraindication for anticoagulation. BRIEF CLINICAL HISTORY: Yajaira Maguire is a 64 y.o. male paroxysmal atrial fibrillation, history of left atrial appendage thrombus; CHF with mildly reduced ejection fraction, hypertension, history of alcohol abuse, history of falls. Patient was referred by Dr. Dhillon for percutaneous left atrial appendage closure in the setting of anemia, alcohol abuse and history of falls. Patient has history of left atrial appendage thrombus which reportedly resolved after anticoagulation with apixaban. Current CHADSVASc score 3; HASBLED score 3. Preprocedure cardiac CT was performed for assessment of the left atrial appendage. Left atrial appendage thrombus was ruled out prior to the procedure. Patient was given IV hydration with normal saline prior to the procedure. Benefits and risks of the procedure were discussed with the patient in depth, and informed consent was taken prior to the procedure. Risks of the procedure include but are not limited to vascular complications like groin hematoma, retroperitoneal bleed, vessel perforation; pericardial effusion or tamponade; cardiac arrhythmias; device embolization, air embolization, device thrombosis or leak, contrast induced nephropathy, . After discussing all the benefits, risks and alternatives, patient was willing to proceed with the procedure. PROCEDURES PERFORMED: Successful implantation of 20 mm Turner Amplatzer Amulet left atrial appendage occluder (CPT 85756) Intracardiac echocardiogram-3D/4D ICE (CPT 70402) Deployment of 3 closure devices at the right common femoral venous access site (2 at the superior saite, 1 at the inferior site at right common venous access) SEDATION: MAC - by anesthesiology team ACCESS SITES: Right common femoral vein PROCEDURE: After obtaining informed consent, patient was brought to the construction craft laborer and prepped and draped in the usual sterile manner. Time-out and immediate reassessment of the patient was performed. Patient was placed under monitored anesthesia care by the anesthesiologist team. Two right common femoral venous accesses were taken under ultrasound guidance with micropuncture needle. Preclose suture mediated vascular closure device were [place]. [place] [id number] units of unfractionated heparin for procedural anticoagulation at different intervals during the procedure, to maintain ACT between 250-350 seconds. ACT was monitored throughout the procedure at regular intervals. Long 12 Brazilian sheath was advanced over 035 wire from the inferior access site in the right common femoral vein. 3D/4D ICE catheter was advanced in to right atrium. [place] sheath was advanced over 035 wire from the superior access site in the right common femoral vein. Atrial septal puncture was performed using [place] transseptal needle under intracardiac echo and fluoroscopic guidance. The sheath was advanced to the left atrium towards the pulmonary vein over the pre shaped wire. The sheath was taken out and it was exchanged with a 14 Brazilian amulet steerable delivery sheath. The sheath was advanced into the left atrium, the atrial septum was dilated with the sheath, and then sheath was taken out over the wire and positioned in the right atrium/IVC junction. Next, ICE catheter was advanced into the left atrial cavity. Left atrial appendage measurement was performed. After this, the 14 Brazilian sheath was reintroduced over [place] wire. A 5 Brazilian pigtail catheter was advanced over the wire and the pre shaped wire was taken out. Left atrial pressure was measured at 13 mmHg. A 5 Brazilian pigtail catheter was later positioned in the left atrial appendage. Left atrial appendage was visualized after injection of contrast in LEWIS caudal projection. The tip of the sheath was advanced close to the left atrial appendage orifice over the pigtail catheter. Next, the delivery sheath of the Amplatzer amulet was thoroughly prepped and flushed with normal saline multiple times to remove any air from the device. Wet to wet connection was performed and the delivery sheath was advanced to the left atrial appendage orifice through the delivery sheath after removal of the pigtail catheter. Initially, 22 mm device was introduced, however, the device did not align well and had to be recaptured at least 3 times. After this, we decided to downsize the device to 20 mm Amulet. After couple of attempts, the device was was deployed under 3D and 4D ICE and fluoroscopic guidance. 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 Verification of proper Amulet device deployment was performed with CLOSE signs (Cx lobe at least 2/3 distal, lobe compression, orientation of lobe in line with axis of the FERNANDA neck, separation between the disc lobe and the disc, elliptical -concave disc). TUG test was performed. Post-implant ICE did not show stevie-device leak or pericardial effusion. After completion of successful procedure, hemostasis was achieved by deployment of 3 Perclose suture mediated vascular closure devices- two at the superior site, and 1 of the inferior site of right common femoral vein. Patient received 40 mg protamine at the conclusion of the procedure. Patient tolerated procedure well without any immediate procedural complications. Estimated blood loss minimal. All specimens removed. Patient was transferred to the telemetry bed in hemodynamically stable condition. Patient's family was updated about the procedure. CONCLUSIONS: Successful implantation of 20 Amplatzer Amulet left atrial appendage closure device. PLAN/RECOMMENDATIONS: Patient will be admitted to the telemetry unit and will be monitored for any potential postprocedure complications. Follow-up CHELE or CT heart in approximately 45 days for device surveillance to assess for any peridevice leak and device related thrombus. Due to history of left atrial appendage thrombus, patient will be continued on apixaban for approximately 6 weeks until follow up transesophageal echocardiogram. If no device related thrombus, then he can be switched to dual antiplatelet therapy to complete 6 months, then single antiplatelet treatment. Endocarditis prophylaxis for 6 months. Outpatient cardiology follow-up. Voice recognition software was used to complete this document, therefore, fund accounting manager variances may occur. Zach Matos MD, [facility] 12/09/24 Leodan Rojo MD CV ELECTROPHYSIOLOGY PROCS Edite d Result - Final * (ABNORMAL) POC Activated Clotting Time, High Range (12/09/2024 9:58 AM CDT) ACT 261(H) 87 - 138 sec Blood 12/09/2024 9:58 AM CDT 12/09/2024 9:58 AM CDT Zach Matos MD LAB BLOOD ORDERABLES Final Resul t Performing Organization Address [facility] de Phone Number [facility] [phone] [address] [facility] [place] [address] * (ABNORMAL) POC Activated Clotting Time, High Range (12/09/2024 9:16 AM CDT) ACT 288(H) 87 - 138 sec Blood 12/09/2024 9:16 AM CDT 12/09/2024 9:16 AM CDT Zach Matos MD LAB BLOOD ORDERABLES Final Resul t Performing Organization Address [facility] de Phone Number [facility] [phone] [facility] [place] [address] * (ABNORMAL) POC Activated Clotting Time, High Range (12/09/2024 9:10 AM CDT) ACT 219(H) 87 - 138 sec Blood 12/09/2024 9:10 AM CDT 12/09/2024 9:10 AM CDT Zach Matos MD LAB BLOOD ORDERABLES Final Resul t Performing Organization Address [facility] de Phone Number [facility] [phone] [facility] [place] [address] * Check Sample (12/09/2024 8:58 AM CDT) ABO Rh O Negative [facility] OTHER 12/09/2024 8:58 AM CDT 12/09/2024 9:23 AM CDT Zach Matos MD LAB BLOOD ORDERABLES Final Resul t Performing Organization Address [facility] Co de Phone Number HAL [address] [address] Department [place] [address] CH * Potassium, whole blood (12/09/2024 8:50 AM CDT) Potassium, bld 3.9 3.3 - 4.9 mmol/L Comment: Interpretive Data This method is not able to assess for hemolysis, which may falsely increase potassium concentrations. If further testing is needed to evaluate this result, consider in-laboratory plasma potassium. Current Interpretive Data was last revised on 2021. Blood 12/09/2024 8:50 AM CDT 12/09/2024 9:09 AM CDT Vannesa Bonilla NP LAB BLOOD ORDERABLES Final Result Performing Organization Address [facility] Co de Phone Number [facility] BUI [address] [address] [place] [address] * Prepare RBC: 2 Units (12/09/2024 6:57 AM CDT) Product code [id number] [facility] Unit Number [id number] 8-J [facility] Product Blood Type ONEG [facility] Dispense Status RETURNED [facility] Product code [id number] Unit Number [id number] 4-[id number] [facility] Product Blood Type ONEG [facility] CH Dispense Status RETURNED [facility] Blood 12/09/2024 6:57 AM CDT Narrative [facility] - 12/10/2024 12:28 AM CDT Specify Procedure:->LAAO Are special requirements needed? (All products are leukoreduced and CMV- safe)- >No Date required:-[id number] LRRBC # of [id number] Reasons:-Hold for procedure (specify procedure)} Leodan Rojo MD BLOOD BANK PRODUCT ORDERABLES Fi nal Result Performing Organization Address [facility] Co de Phone Number [facility] B[facility] [phone] [address] [place] [address] * eGFR (11/28/2024 10:44 AM CDT) eGFR 89 >=60 mL/min/1. 73 m2 Comment: Interpretive Data Reference Interval Normal >/= 90 mL/min/1.73m2 Mildly decreased* 60 - 89 mL/min/1.73m2 Mildly to moderately decreased 45 - 59 mL/min/1.73m2 Moderately to severely decreased 30 - 44 mL/min/1.73m2 Severely decreased 15 - 29 mL/min/1.73m2 Kidney Failure < 15 mL/min/1.73m2 *Relative to young adult level Estimated glomerular filtration rate is determined by the 2020 CKD-EPI equation recommended by the National Kidney Foundation (A Unifying Approach to GFR Estimation: Recommendations of the NKF-ASK Task Force on Reassessing the Inclusion of Race in Diagnosing Kidney Disease, JASN 202). The CKD-EPI equation should not be used for patients with unstable renal function and has not been validated in children and those over 70. Current interpretive data was last reviewed 2020. Blood 11/28/2024 10:4 4 AM CDT 11/28/2024 10:44 AM CDT Leodan Rojo MD LAB BLOOD ORDERABLES Final Resul t Performing Organization Address [facility] Co de Phone Number [facility] B[facility] [phone] [address] [place] [address] * (ABNORMAL) Differential, auto (11/28/2024 10:44 AM CDT) Neutrophil abs 9.50(H) 1.50 - 6.50 K/cumm Imm gran abs 0.06 0.00 - 0.10 K/cumm [facility] Lymphocyte abs 2.22 0.80 - 3.30 K/cumm [facility] Monocyte abs 1.33(H) 0.20 - 0.80 K/cumm [facility] Eosinophil abs 0.11 0.00 - 0.50 K/cumm [facility] Basophil abs 0.05 0.00 - 0.10 K/cumm [facility] Neutrophil pct 71.6 % [facility] Comment: Interpretive Data Percent cell count reference ranges are not reported, since discordance with absolute values may lead to misinterpretation of CBC data. Current Interpretive Data was last revised on 2017. Imm gran pct 0.5 % [facility] Comment: Interpretive Data Percent cell count reference ranges are not reported, since discordance with absolute values may lead to misinterpretation of CBC data. Current Interpretive Data was last revised on 2017. Lymphocyte pct 16.7 % [facility] Comment: Interpretive Data Percent cell count reference ranges are not reported, since discordance with absolute values may lead to misinterpretation of CBC data. Current Interpretive Data was last revised on 2017. Monocyte pct 10.0 % [facility] Comment: Interpretive Data Percent cell count reference ranges are not reported, since discordance with absolute values may lead to misinterpretation of CBC data. Current Interpretive Data was last revised on 2017. Eosinophil pct 0.8 % [facility] Comment: Interpretive Data Percent cell count reference ranges are not reported, since discordance with absolute values may lead to misinterpretation of CBC data. Current Interpretive Data was last revised on 2017. Basophil pct 0.4 % [facility] Comment: Interpretive Data Percent cell count reference ranges are not reported, since discordance with absolute values may lead to misinterpretation of CBC data. Current Interpretive Data was last revised on 2017. Blood 11/28/2024 10:4 4 AM CDT 11/28/2024 10:44 AM CDT us Leodan Rojo MD LAB BLOOD ORDERABLES Final Resul t HAL [address] [address] [place] [address] * (ABNORMAL) CBC with auto differential (11/28/2024 10:44 AM CDT) WBC 13.27(H) 3.80 - 9.90 K/cumm Hgb 11.5(L) 13.0 - 17.5 g/dL [facility] Hct 35.6(L) 38.9 - 50.3 % [facility] Plt 258 150 - 400 K/cumm [facility] MPV 10.7 9.1 - 12.3 fL [facility] RBC 3.91(L) 4.30 - 5.80 M/cumm [facility] MCV 91.0 81.3 - 96.4 fL [facility] CH MCH 29.4 27.1 - 33.3 pg CERNER MCHC 32.3 32.3 - 35.7 g/dL [facility] RDW CV 15.5(H) 11.1 - 14.9 % [facility] RDW SD 51.6(H) 35.7 - 48.1 fL [facility] NRBC abs 0.00 0.00 - 0.01 K/cumm [facility] Blood 11/28/2024 10:4 4 AM CDT 11/28/2024 10:44 AM CDT us Leodan Rojo MD LAB BLOOD ORDERABLES Final Resul t [facility] [address] [facility] [place] [address] * aPTT (11/28/2024 10:44 AM CDT) Pathologist [facility] aPTT 38 26 - 38 sec Comment: Interpretive Data Heparin therapeutic range: 66.0 - 100.0 seconds. Range based on correlation with therapeutic heparin activity range of 0.3 - 0.7 Units/mL. Current interpretive data was last revised on 2022. Blood 11/28/2024 10:4 4 AM CDT 11/28/2024 10:44 AM CDT us Leodan Rojo MD LAB BLOOD ORDERABLES Final Resul t Performing Organization Address [facility] de Phone Number HAL [phone] [address] [place] [address] * (ABNORMAL) Protime-INR (11/28/2024 10:44 AM CDT) PT 20.7(H) 10.2 - 13.5 sec INR 1.85(H) 0.90 - 1.20 [facility] Comment: Interpretive data Oral anticoagulant therapeutic ranges: Venous thromboembolism prophylaxis or treatment: 2.0-3.0 CARDIOLOGY Standard range: 2.0-3.0 High-intensity range: 2.5-3.5 Refer to indication-specific guidelines for appropriate target ranges for prosthetic heart valve replacement. Current interpretive data was last revised on 2019. Blood 11/28/2024 10:4 4 AM CDT 11/28/2024 10:44 AM CDT Leodan Rojo MD LAB BLOOD ORDERABLES Final Resul t Performing Organization Address [facility] de Phone Number HAL BUI [phone] [address] Department [place] [address] * Comprehensive metabolic panel (11/28/2024 10:44 AM CDT) Sodium 140 135 - 145 mmol/L Potassium, pl 4.3 3.3 - 4.9 mmol/L [facility] Chloride 105 97 - 110 mmol/L [facility] CO2 22 22 - 32 mmol/L [facility] Anion gap 13 2 - 15 mmol/L [facility] BUN 15 6 - 25 mg/dL [facility] Creatinine 0.95 0.80 - 1.30 mg/dL [facility] Glucose 115 70 - 199 mg/dL [facility] Comment: Interpretive Data Fasting glucose >/= 126 mg/dl is diagnostic for diabetes. Fasting is defined as no caloric intake for at least 8 hours. Fasting glucose between 100 mg/dl to 125 mg/dl is diagnostic of prediabetes. In a patient with classic symptoms of hyperglycemia or hyperglycemic crisis, a random glucose >/= 200 mg/dl is diagnostic for diabetes. In the absence of unequivocal hyperglycemia, results should be confirmed by repeat testing. The classification and Diagnosis of Diabetes Diabetes Care 2021; 46: S19-S40. Current interpretive data was last revised 2022. Calcium 9.8 8.5 - 10.3 mg/dL [facility] Bilirubin, total 0.8 0.1 - 1.2 mg/dL [facility] Protein, pl 7.7 6.5 - 8.5 g/dL [facility] Albumin 4.0 3.5 - 5.0 g/dL [facility] Alk phos 106 40 - 130 Units/L [facility] ALT 24 7 - 55 Units/L [facility] AST 34 10 - 50 Units/L [facility] Blood 11/28/2024 10:4 4 AM CDT 11/28/2024 10:44 AM CDT Leodan Rojo MD LAB BLOOD ORDERABLES Final Resul t Performing Organization Address [facility] Co de Phone Number HAL [phone] [address] [place] [address] * Type and screen (11/28/2024 10:38 AM CDT) Padmini, indirect Negative ABO Rh O Negative [facility] Blood 11/28/2024 10:3 8 AM CDT 11/28/2024 10:45 AM CDT Narrative [facility] - 11/28/2024 11:45 AM CDT Has the patient had Daratumumab or Isatuximab in the past 6 months?->Unknown Leodan Rojo MD LAB BLOOD BANK TEST ORDERABLES F inal Result Performing Organization Address [facility] Co de Phone Number [facility] [phone] [address] [place], [place] [id number] * ECG 12 lead (11/28/2024 10:17 AM CDT) 11/28/2024 10:1 7 AM CDT Narrative [facility] - 11/28/2024 1:04 PM CDT Vent Rate: 89 bpm RR Interval: 671 msec PA Interval: 172 msec QRS Duration: 93 msec QT Interval: 364 msec QTC Interval: 411 msec P-R-T [place]: 52 - 66 - 31 degrees IMPRESSION: SINUS RHYTHM WITH OCCASIONAL VENTRICULAR PREMATURE COMPLEXES LOW QRS VOLTAGE IN EXTREMITY LEADS Electronically Signed By: Zach Matos MD, [facility] us Leodan Rojo MD ECG ORDERABLES Final Result [facility] * CT Heart Morphology W Contrast (11/28/2024 8:21 AM CDT) Anatomical Region Laterality Modality Chest N/A Computed Tomogra phy 11/28/2024 11:5 8 AM CDT Impressions 11/29/2024 10:30 AM CDT 1. Left atrial appendage measurements for placement of occlusion device as described. 2. No evidence of left atrial appendage thrombus. 3. Presence of coronary atherosclerosis. 4. Laminar calcifications in the left atrium and distal pulmonary veins compatible with chronic atrial fibrillation . Dictated by: Donta carrillo M.D. The radiology attending physician has personally reviewed this study, and had reviewed and/or edited this written report and agrees with it. Electronically signed by: Epifanio Argueta M.D. Narrative 11/29/2024 10:30 AM CDT HISTORY:Measurements in preparation for left atrial appendage occlusion device placement. COMPARISON: None TECHNIQUE: Heart CT performed during administration of 118 mL of Optiray 350, intravenously per pulmonary vein protocol. Images were transferred to an independent workstation for additional 3D post-processing. FINDINGS: Left atrial depth: 46.9 mm Left atrial appendage ostium: Area 608 cm squared, Circumference 21 cm, Diameter 31.7 x 23.2 mm. FERNANDA Depth: 42.8 FERNANDA Length: 18.8 Left atrial appendage shape: Chicken wing No evidence of left atrial appendage thrombus. Interatrial septum measures 3.2 mm thick and is free of device or thrombus. Laminar left atrial calcification compatible with chronic atrial fibrillation and old mural thrombus. Esophagus lies immediately posterior to the Right superior pulmonary vein. Other findings: Osteoarthritic changes of thoracic vertebra, Anterior cervical spine fusion. Old healed granulomatous disease of lung. Fibrotic changes of the liver. Correlate clinically. Procedure Note Epifanio Argueta MD - 11/29/2024 HISTORY:Measurements in preparation for left atrial appendage occlusion device placement. COMPARISON: None TECHNIQUE: Heart CT performed during administration of 118 mL of Optiray 350, intravenously per pulmonary vein protocol. Images were transferred to an independent workstation for additional 3D post-processing. FINDINGS: Left atrial depth: 46.9 mm Left atrial appendage ostium: Area 608 cm squared, Circumference 21 cm, Diameter 31.7 x 23.2 mm. FERNANDA Depth: 42.8 FERNANDA Length: 18.8 Left atrial appendage shape: Chicken wing No evidence of left atrial appendage thrombus. Interatrial septum measures 3.2 mm thick and is free of device or thrombus. Laminar left atrial calcification compatible with chronic atrial fibrillation and old mural thrombus. Esophagus lies immediately posterior to the Right superior pulmonary vein. Other findings: Osteoarthritic changes of thoracic vertebra, Anterior cervical spine fusion. Old healed granulomatous disease of lung. Fibrotic changes of the liver. Correlate clinically. IMPRESSION: 1. Left atrial appendage measurements for placement of occlusion device as described. 2. No evidence of left atrial appendage thrombus. 3. Presence of coronary atherosclerosis. 4. Laminar calcifications in the left atrium and distal pulmonary veins compatible with chronic atrial fibrillation . Dictated by: Donta carrillo M.D. The radiology attending physician has personally reviewed this study, and had reviewed and/or edited this written report and agrees with it. Electronically signed by: Epifanio Argueta M.D. us Leodan Rojo MD IMG CT PROCEDURES Final Result * POCT creatinine for contrast evaluation (11/28/2024 8:00 AM CDT) Creatinine, POC 1.1 0.6 - 1.3 mg/dL Blood 11/28/2024 8:00 AM CDT us Leodan Rojo MD POINT OF CARE TEST ORDERABLES Fi nal Result from Last 3 Months Insurance T MEDICARE T MEDICARE Care Teams Pattern Ruler Relationship Specialty Start Date End Date Kel Hope MD [address] [place] [address] PCP - General Internal Medicine 06/07/24
--- OUTSIDE RECORDS SUMMARY | 2025-01-23 02:19 | XMS_ITS | Encounter Summary ---
Author Organization [facility] Address [address] [place] [address] Care Team Providers Care Cellophane Bath Mixer Name Role Phone Raysa Miguel MD Primary Care Provider Unavailab Jonna Pace BUSINESS SUPPORT SPECIALIST- Unavailable Regan Lam MD Unavailable [phone] Shahid Mansfield MD Unavailable [phone] Encounter Details Date Type Department Care Team (Late st Contact Info) Description 05/06/2017 Abstract [facility] CONVERSION [address] [place] [address] , Generic Conversion, Social History Tobacco Use [...] Rule Out 01/31/2021 01/31/2021 01/31/2021 6:37 PM CUSTOM BOW MAKER COVID-19 Rule Out 05/16/2021 05/16/2021 05/16/2021 6:33 PM CDT documented as of this encounter Care Teams Cellophane Bath Mixer Relationship Specialty Start Date End Date Raysa Miguel MD PCP - General FAMILY PRACTICE 04/22/16 Jonna Moss FNP- NURSE PRACTITIONER 04/22/16 Regan Lam MD CARDIOVASCULAR DISEASE 04/22/16 Shahid Mansfield MD [address] [place] [address] ORTHOPAEDIC SURGERY 04/22/16 documented as of this encounter
--- OUTSIDE RECORDS SUMMARY | 2025-01-23 02:19 | XMS_ITS | Clinical Summary ---
Author Organization [facility] Address [address] [place] [address] Care Team Providers Care Crop Or Grain Farmer Name Role Phone Unavailable Primary Care Provider [...] (1 of 2) 09/19/2009 Influenza Immunization (#1) 2024 03/16/2020 SARS-COV-2 Immunization ( season) 2024 12/25/2020, 04/24/2020, 03/27/2020 Respiratory Syncytial Virus (RSV) [...]
--- OUTSIDE RECORDS SUMMARY | 2025-01-23 02:19 | XMS_ITS | Encounter Summary ---
Author Organization [facility] Address [address] [place] [address] Care Team Providers Care Sprinkler Truck Driver Name Role Phone Kel Hope MD Primary Care Provider [phone] Encounter Details Date Type Department Care Team (Late st Contact Info) Description 07/04/2024 Orders Only [facility] Health Information Management [address] [place] [id number] Scanning, Provider Social History Tobacco Use [...] on filedocumented in this encounter Care Teams Sprinkler Truck Driver Relationship Specialty Start Date End Date Kel Hope MD [address] [place] [address] PCP - General Internal Medicine 06/07/24 documented as of this encounter
--- NOTE | 2025-01-23 12:00 | ECHO_ITS ---
Patient Info Name: Jose Davidson Age: 64 years : 1960 Gender: Male Ht: 66 in Wt: 138 lbs BSA: 1.71 m2 HR: 96 bpm BP: 93 / 61 mmHg Technical Quality: Good Exam Date: 01/23/2025 12:45 PM Patient Status: O Admit Date: 01/23/2025 Exam Type: CA echo transesophageal Complete two-dimensional, color flow and Doppler transesophageal study is performed. Tool Clerk: Onofre Cruz III Attending Provider: Leodan Rojo Summary 1. There is a well-seated ambulate device in the left atrial appendage. There is no stevie device leak or thrombus. 2. There is normal biventricular size and systolic function. 3. There are no valvular abnormalities. Complications There were no complication prior to, during or in recovery from the transesophageal echocardiogram. Medications The posterior pharynx was sprayed with Cetacaine spray. Sedation was provided by anesthesiology team. Procedure Details The patient arrived in a fasting state after obtaining informed consent. The transesophageal probe was passed into the posterior pharynx, mid-esophagus, and distal esophagus. Imaging was performed at multiple levels. The patient tolerated the procedure well and there were no complications. The patient was transferred out of the examination area in satisfactory condition. Left Ventricle The left ventricle is normal in size and systolic function. Right Ventricle The right ventricle is normal in size and systolic function. Left Atria The left atrium is normal size. Right Atria The right atrium is normal size. Atrial Septum The atrial septum intact. Atrial Appendage There is a well-seated ambulate device in the left atrial appendage. There is no stevie device leak or thrombus. Aortic Valve The aortic valve is trileaflet and opens well. There is no aortic regurgitation. Pulmonic Valve The pulmonic valve is grossly normal. Mitral Valve The mitral valve is normal. There is trace mitral regurgitation. Tricuspid Valve The tricuspid valve is normal. Pericardium/Pleural Pericardium is normal in appearance with no evidence for significant pericardial effusion. Aorta There is mild atherosclerotic disease in visualized portions of aorta. Report Signatures
[2025-01-23 12:04] VITALS: BP 126/74; PULSE 82; RESP 14; TEMP 36.6; O2SAT 97; BMI 37.8
--- NOTE | 2025-01-23 12:59 | WPDHPUPDATE1 ---
History and Physical Update Update Date/Time: 01/23/25 12:39 History and Physical has been reviewed, including an updated exam of the patient. There are NO changes in the patient's condition. Risks, benefits, and alternatives have been discussed and questions answered. Patient agrees to proceed with procedure.
[2025-01-23 13:05] VITALS: BP 93/61; PULSE 96; RESP 21; O2SAT 93
[2025-01-23 13:20] VITALS: BP 98/62; PULSE 80; RESP 16; O2SAT 96
[2025-01-23 13:35] VITALS: BP 111/68; PULSE 79; RESP 14; O2SAT 95
[2025-01-23 13:50] VITALS: BP 114/75; PULSE 78; RESP 16; O2SAT 95
[2025-01-23 14:05] VITALS: BP 113/59; PULSE 75; RESP 13; O2SAT 94
== END 2025-01-23 14:21 | disposition home or self-care (01) ==
PROVIDERS: PCP Internal Medicine; Visit Provider Internal Medicine
PROC: (CPT 93312; principal; 2025-01-23 13:00)
DX: I48.91 Unspecified atrial fibrillation (principal); I25.10 Atherosclerotic heart disease of native coronary artery without angina pectoris; I11.0 Hypertensive heart disease with heart failure; I50.20 Unspecified systolic (congestive) heart failure; Z87.11 Personal history of peptic ulcer disease; Z79.01 Long term (current) use of anticoagulants
CPT/HCPCS: 93312; 93320; 93325; J7040